=== PATIENT | male | born 1960 | race Caucasian/White ===

== ENCOUNTER → 2020-08-08 10:43 | Outpatient (BNVA) | payer MEDICAID, SELFPAY | PROVIDERS: PCP Internal Medicine; Visit Provider Internal Medicine | DX: I26.99 Other pulmonary embolism without acute cor pulmonale (principal); Z51.81 Encounter for therapeutic drug level monitoring; Z79.01 Long term (current) use of anticoagulants | CPT/HCPCS: 85610; 99211 ==

== ENCOUNTER 2020-08-19 08:16 | Outpatient (REF) | payer MEDICAID, SELFPAY ==
--- NOTE | 2020-08-19 | US_ITS ---
EXAMINATION: US RETROPERITONEAL LIMITED (RENAL ONLY) CLINICAL INFORMATION: Neurogenic bladder. COMPARISON: Renal ultrasounds dated 08/31/2019 and 07/26/2018. CT abdomen and pelvis without contrast dated 04/11/2009. X-ray abdomen dated 04/05/2009 and 03/15/2009. TECHNIQUE: Real-time imaging of the kidneys. FINDINGS: RIGHT KIDNEY: 12 x 7 x 6.7 cm (SAG x AP x TRV). The kidney is normal in size, contour, and echogenicity. Renal cortical thickness is normal. No calculi or focal parenchymal lesions. No hydronephrosis. LEFT KIDNEY: 10.4 x 6.9 x 4.6 cm (SAG x AP x TRV). The kidney is normal in size, contour, and echogenicity. Renal cortical thickness is normal. No renal calculi or hydronephrosis. There are 3 anechoic cysts. 1. The hcn-nj-edcna pole cyst measures 1.8 x 1.7 x 1.2 cm. 2. Lower pole cyst measures 0.9 x 0.8 x 1.2 cm. 3. Midpole cyst measures 1.0 x 0.9 x 1.0 cm. US/US renal BI IMPRESSION: At least 3 cysts seen in the left kidney. No echogenic calculi or hydronephrosis seen in either kidney.
[2020-08-19 10:18] LABS: PSA,Total (Free>4and<10) 0.83 ng/mL (0.00-4.00)
== END 2020-08-19 08:17 | disposition home or self-care (01) ==
LOC: HO.US 08:16
PROVIDERS: PCP Internal Medicine; Visit Provider Urology
DX: N40.1 Benign prostatic hyperplasia with lower urinary tract symptoms (principal); N31.9 Neuromuscular dysfunction of bladder, unspecified
CPT/HCPCS: 76775; 84153

== ENCOUNTER → 2020-09-05 13:45 | Outpatient (BNVA) | payer MEDICAID, SELFPAY | PROVIDERS: PCP Internal Medicine; Referring Provider Internal Medicine; Visit Provider Internal Medicine | DX: I26.99 Other pulmonary embolism without acute cor pulmonale (principal); Z51.81 Encounter for therapeutic drug level monitoring; Z79.01 Long term (current) use of anticoagulants | CPT/HCPCS: 85610; 99211 ==

== ENCOUNTER → 2020-10-09 11:03 | Outpatient (BNVA) | payer MEDICAID, SELFPAY | PROVIDERS: PCP Internal Medicine; Visit Provider Internal Medicine | DX: I26.99 Other pulmonary embolism without acute cor pulmonale (principal); Z51.81 Encounter for therapeutic drug level monitoring; Z79.01 Long term (current) use of anticoagulants | CPT/HCPCS: 85610; 99211 ==

== ENCOUNTER → 2020-11-06 10:39 | Outpatient (BNVA) | payer MEDICAID, SELFPAY | PROVIDERS: PCP Internal Medicine; Visit Provider Internal Medicine | DX: I26.99 Other pulmonary embolism without acute cor pulmonale (principal); Z51.81 Encounter for therapeutic drug level monitoring; Z79.01 Long term (current) use of anticoagulants | CPT/HCPCS: 85610; 99211 ==

== ENCOUNTER → 2020-12-19 10:44 | Outpatient (BNVA) | payer MEDICAID, SELFPAY | PROVIDERS: PCP Internal Medicine; Visit Provider Internal Medicine | DX: I26.99 Other pulmonary embolism without acute cor pulmonale (principal); Z51.81 Encounter for therapeutic drug level monitoring; Z79.01 Long term (current) use of anticoagulants | CPT/HCPCS: 85610; 99211 ==

== ENCOUNTER → 2021-01-17 13:16 | Outpatient (BNVA) | payer MEDICAID, SELFPAY | PROVIDERS: PCP Internal Medicine; Visit Provider Internal Medicine | DX: I26.99 Other pulmonary embolism without acute cor pulmonale (principal); Z51.81 Encounter for therapeutic drug level monitoring; Z79.01 Long term (current) use of anticoagulants | CPT/HCPCS: 85610; 99211 ==

== ENCOUNTER → 2021-02-07 13:24 | Outpatient (BNVA) | payer MEDICAID, SELFPAY | PROVIDERS: PCP Internal Medicine; Visit Provider Internal Medicine | DX: I26.99 Other pulmonary embolism without acute cor pulmonale (principal); Z79.01 Long term (current) use of anticoagulants; Z51.81 Encounter for therapeutic drug level monitoring | CPT/HCPCS: 85610; 99211 ==

== ENCOUNTER → 2021-02-27 14:39 | Outpatient (BNVA) | payer MEDICAID, SELFPAY | PROVIDERS: PCP Internal Medicine; Visit Provider Urology | DX: N31.9 Neuromuscular dysfunction of bladder, unspecified (principal); N39.0 Urinary tract infection, site not specified | CPT/HCPCS: 99212 ==

== ENCOUNTER → 2021-03-05 10:29 | Outpatient (BNVA) | payer MEDICAID, SELFPAY | PROVIDERS: PCP Internal Medicine; Visit Provider Internal Medicine | DX: I26.99 Other pulmonary embolism without acute cor pulmonale (principal); Z51.81 Encounter for therapeutic drug level monitoring; Z79.01 Long term (current) use of anticoagulants | CPT/HCPCS: 85610; 99211 ==

== ENCOUNTER → 2021-03-10 11:14 | Outpatient (BNVA) | payer MEDICAID, SELFPAY | PROVIDERS: PCP Internal Medicine; Visit Provider Internal Medicine | DX: I26.99 Other pulmonary embolism without acute cor pulmonale (principal); Z51.81 Encounter for therapeutic drug level monitoring; Z79.01 Long term (current) use of anticoagulants | CPT/HCPCS: 85610; 99211 ==

== ENCOUNTER → 2021-03-21 10:46 | Outpatient (BNVA) | payer MEDICAID, SELFPAY | PROVIDERS: PCP Internal Medicine; Visit Provider Internal Medicine | DX: I26.99 Other pulmonary embolism without acute cor pulmonale (principal); Z51.81 Encounter for therapeutic drug level monitoring; Z79.01 Long term (current) use of anticoagulants | CPT/HCPCS: 85610; 99211 ==

== ENCOUNTER → 2021-03-31 13:10 | Outpatient (BNVA) | payer MEDICAID, SELFPAY | PROVIDERS: PCP Internal Medicine; Visit Provider Internal Medicine | DX: I26.99 Other pulmonary embolism without acute cor pulmonale (principal) | CPT/HCPCS: Q3014 ==

== ENCOUNTER → 2021-04-04 13:19 | Outpatient (BNVA) | payer MEDICAID, SELFPAY | PROVIDERS: PCP Internal Medicine; Visit Provider Internal Medicine | DX: I26.99 Other pulmonary embolism without acute cor pulmonale (principal); Z51.81 Encounter for therapeutic drug level monitoring; Z79.01 Long term (current) use of anticoagulants | CPT/HCPCS: 85610; 99211 ==

== ENCOUNTER → 2021-05-08 10:41 | Outpatient (BNVA) | payer MEDICAID, SELFPAY | PROVIDERS: PCP Internal Medicine; Visit Provider Internal Medicine | DX: I26.99 Other pulmonary embolism without acute cor pulmonale (principal); Z51.81 Encounter for therapeutic drug level monitoring; Z79.01 Long term (current) use of anticoagulants | CPT/HCPCS: 85610; 99211 ==

== ENCOUNTER → 2021-05-22 10:45 | Outpatient (BNVA) | payer MEDICAID, SELFPAY | PROVIDERS: PCP Internal Medicine; Visit Provider Internal Medicine | DX: I26.99 Other pulmonary embolism without acute cor pulmonale (principal); Z51.81 Encounter for therapeutic drug level monitoring; Z79.01 Long term (current) use of anticoagulants | CPT/HCPCS: 85610; 99211 ==

== ENCOUNTER → 2021-06-20 10:22 | Outpatient (BNVA) | payer MEDICAID, SELFPAY | PROVIDERS: PCP Internal Medicine; Visit Provider Internal Medicine | DX: I26.99 Other pulmonary embolism without acute cor pulmonale (principal); Z51.81 Encounter for therapeutic drug level monitoring; Z79.01 Long term (current) use of anticoagulants | CPT/HCPCS: 85610; 99211 ==

== ENCOUNTER → 2021-07-15 10:38 | Outpatient (BNVA) | payer MEDICAID, SELFPAY | PROVIDERS: PCP Internal Medicine; Visit Provider Internal Medicine | DX: I26.99 Other pulmonary embolism without acute cor pulmonale (principal); Z51.81 Encounter for therapeutic drug level monitoring; Z79.01 Long term (current) use of anticoagulants | CPT/HCPCS: 85610; 99211 ==

== ENCOUNTER → 2021-07-29 10:56 | Outpatient (BNVA) | payer MEDICAID, SELFPAY | PROVIDERS: PCP Internal Medicine; Visit Provider Internal Medicine | DX: I26.99 Other pulmonary embolism without acute cor pulmonale (principal); Z51.81 Encounter for therapeutic drug level monitoring; Z79.01 Long term (current) use of anticoagulants | CPT/HCPCS: 85610; 99211 ==

== ENCOUNTER 2021-07-29 17:46 | Emergency (ER) | payer MEDICAID, SELFPAY ==
--- NOTE | ~2021-07-29 | CT_ITS ---
EXAMINATION: CT ABDOMEN AND PELVIS WITHOUT CONTRAST CLINICAL INFORMATION: Left costovertebral angle tenderness and suprapubic pain. Known urinary tract infection. COMPARISON: Renal ultrasound dated from 08/19/2020. CT abdomen/pelvis dated from 04/11/2009. TECHNIQUE: Multidetector volumetric imaging was performed from the superior aspect of the liver through the pubic symphysis. Sagittal and coronal reformatted images were obtained on the technologist's workstation. This CT examination was performed using dose optimization techniques as appropriate, variously including the following: *Automated exposure control *Adjustment of mA and/or kV according to patient size (this includes techniques or standardized protocols for targeted exams where dose is matched to indication/reason for exam; i.e. extremities or head) *Use of iterative reconstruction technique DLP: 95 mGy-cm FINDINGS: LUNG BASES: Linear scarring in the right lung base is not significantly changed since 2008. No focal consolidation or pleural effusion. Mild cardiomegaly with trace amount of pericardial fluid. Mild asymmetric elevation of the left hemidiaphragm is likely in part related to patient's positioning. LIVER, GALLBLADDER, AND BILIARY TREE: The liver is normal in size, shape, and attenuation. No focal hepatic lesion or biliary ductal dilatation is present. The gallbladder is unremarkable with no evidence of radiopaque gallstones, gallbladder wall thickening, or obvious pericholecystic inflammatory changes. PANCREAS: Mildly atrophic. No focal abnormalities. The main pancreatic duct is nondilated. No peripancreatic inflammatory changes. SPLEEN: Unremarkable. ADRENAL GLANDS: Unremarkable. KIDNEYS AND URETERS: Redemonstration of cortical thinning and scarring in the lower pole of the left kidney. There are a few punctate cortical calcifications bilaterally. No renal calculi. No hydronephrosis or hydroureter. Very mild perinephric fat stranding bilaterally. In the lower pole of the left kidney there is a 1.7 cm simple cyst (58:11). More superiorly in the lateral surface of the interpolar region of the left kidney there is a 1.2 cm simple cyst (60:11). There are a few other too small to characterize hypodensities bilaterally. BLADDER: The wall of the urinary bladder is slightly thickened and trabeculated. No intraluminal calculi or focal abnormalities. No significant perivesical fat stranding. GASTROINTESTINAL TRACT: There is fecalization of the distal small bowel and significant stool burden throughout the colon, including the rectum suggesting slow transit and constipation. No pericolic inflammatory changes. No bowel obstruction. Normal appendix. ABDOMINAL WALL: Right lower abdominal wall indication pump terminating in the posterior thecal sac at the level of T11-T12. No abdominal hernia. LYMPH NODES: The absence of intravenous contrast limits evaluation of lymphadenopathy. However, accounting for these limitations, no abdominopelvic lymphadenopathy by size criteria is identified. VASCULAR: Scattered atherosclerotic disease of the abdominal aorta without aneurysm. PELVIC VISCERA: Mild prostatomegaly with coarse calcifications. OSSEOUS STRUCTURES: Compression deformity at L1 is unchanged since 2008. There is increase grade 1 retrolisthesis of L5 on S1, which is likely degenerative in nature with associated vacuum disc phenomena, bilateral facet arthropathy and prominent osteophytes at this level. CT/CT abdomen pelvis wo con IMPRESSION: No evidence of renal calculi, hydronephrosis nor hydroureter. Evaluation of pyelonephritis is limited in the absence of intravenous contrast. The wall of the urinary bladder is slightly thickened and trabeculated which could be sequela of chronic outlet obstruction. Correlate clinically for cystitis. Fecalization of the distal small bowel with significant stool burden throughout the colon suggesting slow transit/constipation. No active inflammatory bowel changes. No bowel obstruction. Progression of lumbar spondylosis since 2008, more pronounced at L5-S1. Unchanged compression deformity at L1.
[2021-07-29 18:09] VITALS: BP 92/36; PULSE 68; RESP 17; TEMP 36.8; O2SAT 96; BMI 28.3
[2021-07-29 21:45] VITALS: BP 103/54; PULSE 62; RESP 16; TEMP 36.5; O2SAT 97
--- NOTE | 2021-07-29 23:14 | ED.MALEGU ---
HPI - Male Genitourinary General Chief complaint: Urogenital-Male Stated complaint: UTI Time Seen by Provider: 07/29/21 22:10 Source: patient Mode of arrival: ambulatory History of Present Illness HPI Narrative: 60-year-old male with a past medical history of neurogenic bladder requiring intermittent catheterization, recurrent UTIs, to ED sent in from [facility] for persistent UTI symptoms including dysuria, lower abdominal pain x1 week and left flank pain with associated chills and subjective fever since yesterday. Patient has been on Bactrim since 07/23 without improvement in symptoms.Denies nausea, vomiting, testicular pain, hematuria, penile pain MD Complaint: dysuria Related Data Home Medications Medication Instructions Recorded Confirmed BIOTIN PO 03/05/21 05/22/21 CLONAZEPAM PO 03/05/21 05/22/21 NITROFURANTOIN PO 03/05/21 05/22/21 VITAMIN D 3 PO 03/05/21 05/22/21 ZINC PO 03/05/21 05/22/21 baclofen 20 mg tablet 20 mg PO QID 03/05/21 05/22/21 pyridoxine (vitamin B6) [Vitamin PO 03/05/21 05/22/21 B-6] cefdinir 300 mg capsule 300 mg PO BID 04/04/21 05/22/21 varicella-zoster gE vac,2 of 2 50 IM 04/04/21 05/22/21 mcg IM suspension (Shingrix gE Antigen Component) Previous Rx's Medication Instructions Recorded warfarin 3 mg tablet 3 mg PO DAILY #90 tab 08/08/20 ascorbic acid (vitamin C) 1,000 mg 1 g PO DAILY 90 Days #90 tab 02/27/21 tablet methenamine hippurate 1 gram tablet 1 g PO DAILY 90 Days #90 tab 02/27/21 cefpodoxime 200 mg tablet 200 mg PO BID 10 Days #20 tab 07/30/21 Allergies Allergy/AdvReac Type Severity Reaction Status Date / Time No Known Allergies Allergy Mild NOT Verified 07/29/21 18:08 APPLICABLE Review of Systems Review of Systems: Constitutional: +subj Fever, + Chills, No Fatigue, No Malaise ENT/Mouth: No Ear Pain, No Nasal Congestion, No Hoarseness, No sore throat, No Rhinorrhea Eyes: No Eye Pain, No Swelling, No Vision Changes Cardiovascular: No Chest Pain, No SOB, No Dyspnea on Exertion, No Orthopnea, No Edema, No Palpitations Respiratory: No Cough, No Dyspnea Gastrointestinal: No Nausea, No Vomiting, No Diarrhea, No Constipation, + Abdominal pain Genitourinary: + Dysuria, No Urinary Frequency, No Hematuria, + Urgency, + Flank Pain, No Urinary Flow Changes, No Hesitancy Musculoskeletal: No joint pain, No Myalgias, No Joint Swelling Skin: No Skin Lesions, No rash Neuro: No Weakness, No Dizziness, No Headache Yes all other systems are reviewed and are negative FOR[facility]LY [facility] Past Medical History Attestation statement: The following information was validated with the patient. Medical History (Updated 07/30/21 @ 00:04 by ZULEYMA Albarran) Hx of meningitis Neurogenic bladder Renal cyst, acquired UTI (urinary tract infection) Surgical History (Updated 07/29/21 @ 18:11 by Jessica De La O RN) H/O abdominal surgery Social History Social History Advance Directives: No Advance Directives Information Provided: Yes Physical Exam Vital Signs: Vital Signs: Last Vital Signs Temp 97.7 F 07/29/21 21:45 Pulse 59 07/29/21 23:25 Resp 16 07/29/21 23:25 BP 104/59 L 07/29/21 23:25 Pulse Ox 97 07/29/21 23:25 Body Mass Index 28.3 Const: General: cooperative, healthy appearing and no acute distress Orientation/consciousness: patient oriented x3 Limitations: no limitations HENMT: Head: Yes normal to inspection Ears: hearing grossly normal bilaterally General nose exam: Normal external nose present Face and sinus: Yes normal facial exam Eyes: General: appearance normal, both eyes and all related structures EOM: EOMs intact bilaterally Neck: Neck: Yes normal visual inspection Resp: Effort & Inspection: normal respiratory effort and no respiratory distress Cardio: Rate: regular rate Heart sounds: S1 normal heart sound present and S2 normal heart sound present GI: Inspection: Yes normal to inspection Palpation (GI): Soft to palpation, Tenderness to palpation present (GI) (Suprapubic), no guarding and not rigid : General: Yes CVA tenderness on the left Penis: normal penis Back/Spine/Pelvis: Back: CVA tenderness Skin: Rashes: no rashes Wounds: no wounds Neuro: General: patient oriented x3 Gait exam (Neuro): Normal gait present Extrem: General: Yes normal to inspection Course Course Course Narrative: -no leukocytosis, elevated INR to 4.2 > on Coumadin to prevent coagulation due to Decreased activity. Discussed with patient elevated INR and should hold Coumadin x2 days and have INR rechecked -1753-- UA nitrate positive, +leuk estrase +wbc's and bacteria > patient will receive dose of IV Ceftriaxone in the ED CT abdomen pelvis wo con IMPRESSION: No evidence of renal calculi, hydronephrosis nor hydroureter. Evaluation of pyelonephritis is limited in the absence of intravenous contrast. ? The wall of the urinary bladder is slightly thickened and trabeculated which could be sequela of chronic outlet obstruction. Correlate clinically for cystitis. ? Fecalization of the distal small bowel with significant stool burden throughout the colon suggesting slow transit/constipation. No active inflammatory bowel changes. No bowel obstruction. ? Progression of lumbar spondylosis since 2008, more pronounced at L5-S1. Unchanged compression deformity at L1.? -0038--labs otherwise unremarkable, renal function WNL negative. Patient does not meet sepsis criteria. > will discharge patient with Vantin and close Urology follow-up MDM - Male Genitourinary MDM Narrative Medical decision making narrative: 60-year-old male with a past medical history of neurogenic bladder requiring intermittent catheterization, recurrent UTIs, to ED sent in from [facility] for persistent UTI symptoms including dysuria, lower abdominal pain x1 week and left flank pain with associated chills and subjective fever since yesterday. On exam initially hypotensive, NAD, abdomen with suprapubic TTP, left CVAT noted on exam, concern for UTI/pyelo vs renal stone/obstruction. Concern for failed outpatient treatment. Low concern for severe sepsis at this time. Plan: Labs, UA, lactic/blood cultures, IV antibiotics, anticipated admission Medical Records Attestation: I reviewed the patient's medical records. Lab Data Attestation: I reviewed the patient's lab results. Result diagrams: 07/29/21 23:33 07/29/21 23:33 Labs: Lab Results 07/29/21 07/29/21 07/29/21 Range/Units 23:27 23:33 23:33 WBC 5.8 (4.8-10.8) X10*3/uL RBC 5.13 (4.60-5.80) X10*6/uL Hgb 14.5 (14.0-18.0) g/dl Hct 44.1 (42-52) % MCV 86.0 (80-98) fL MCH 28.3 (27.0-33.0) pg MCHC 32.9 (31.0-36.0) g/dl RDW 13.4 (11.0-16.0) % Plt Count 167 (160-400) X10*3/uL MPV 9.3 L (9.4-12.4) fL Immature Gran % (Auto) 0.2 (0.0-0.4) % Neut % (Auto) 56.9 (45-73) % Lymph % (Auto) 28.8 (20-40) % [place] % (Auto) 11.8 H (2-11) % Eos % (Auto) 2.1 (0-4) % Baso % (Auto) 0.2 (0-2) % Lymph # (Auto) 1.7 (1.2-4.9) X10*3/uL [place] # (Auto) 0.7 (0.1-1.2) X10*3/uL Eos # (Auto) 0.1 (0.0-0.4) X10*3/uL Baso # (Auto) 0.0 (0.0-0.2) X10*3/uL Abs Immat Gran (auto) 0.01 (0.00-0.03) X10*3/uL Absolute Neuts (auto) 3.3 (2.0-8.3) X10*3/uL Absolute Nucleated RBC 0.000 (0.0-0.012) X10*3/uL Nucleated RBC % (auto) 0.0 (0.0-0.2) /100WBC Sodium 137 (135-145) mmol/L Potassium 4.5 (3.3-5.1) mmol/L Chloride 103 (96-108) mmol/L Carbon Dioxide 26 (22-29) mmol/L Anion Gap 13 (12-20) BUN 11 (9-16) mg/dL Creatinine 0.85 (0.5-1.4) mg/dL Estim Creat Clear Calc 86.3 Estimated GFR > 60 Random Glucose 86 (60-115) mg/dL Lactic Acid (0.5-2.0) mmol/L Calcium 8.9 (8.4-10.2) mg/dL Magnesium 2.2 (1.6-2.6) mg/dL Total Bilirubin 0.2 (0.0-1.0) mg/dL Direct Bilirubin 0.2 (0.0-0.5) mg/dL AST 28 (5-37) U/L ALT 35 (0-40) U/L Alkaline Phosphatase 44 (39-117) U/L Total Protein 6.8 (6.5-8.0) g/dL Albumin 4.5 (3.5-5.0) g/dL Lipase 15 (8-78) U/L Urine Color Urine Appearance Urine pH (5.0-8.0) Ur Specific [place] (1.005-1.025) Urine Protein (NEG-TRACE) MG/DL Urine Glucose (UA) (NEG) MG/DL Urine Ketones (NEG) MG/DL Urine Blood (NEG) Urine Nitrite (NEG) Ur Leukocyte Esterase (NEG) Urine RBC (0) /HPF Urine WBC (0-4) /HPF Urine WBC Clumps Ur Squamous Epith Cells /LPF Urine Bacteria /LPF COVID-19 (KEIRY) Negative (Negative) COVID-19 Clin Com See Note 07/29/21 07/30/21 Range/Units 23:33 00:06 WBC (4.8-10.8) X10*3/uL RBC (4.60-5.80) X10*6/uL Hgb (14.0-18.0) g/dl Hct (42-52) % MCV (80-98) fL MCH (27.0-33.0) pg MCHC (31.0-36.0) g/dl RDW (11.0-16.0) % Plt Count (160-400) X10*3/uL MPV (9.4-12.4) fL Immature Gran % (Auto) (0.0-0.4) % Neut % (Auto) (45-73) % Lymph % (Auto) (20-40) % [place] % (Auto) (2-11) % Eos % (Auto) (0-4) % Baso % (Auto) (0-2) % Lymph # (Auto) (1.2-4.9) X10*3/uL [place] # (Auto) (0.1-1.2) X10*3/uL Eos # (Auto) (0.0-0.4) X10*3/uL Baso # (Auto) (0.0-0.2) X10*3/uL Abs Immat Gran (auto) (0.00-0.03) X10*3/uL Absolute Neuts (auto) (2.0-8.3) X10*3/uL Absolute Nucleated RBC (0.0-0.012) X10*3/uL Nucleated RBC % (auto) (0.0-0.2) /100WBC Sodium (135-145) mmol/L Potassium (3.3-5.1) mmol/L Chloride (96-108) mmol/L Carbon Dioxide (22-29) mmol/L Anion Gap (12-20) BUN (9-16) mg/dL Creatinine (0.5-1.4) mg/dL Estim Creat Clear Calc Estimated GFR Random Glucose (60-115) mg/dL Lactic Acid 1.1 (0.5-2.0) mmol/L Calcium (8.4-10.2) mg/dL Magnesium (1.6-2.6) mg/dL Total Bilirubin (0.0-1.0) mg/dL Direct Bilirubin (0.0-0.5) mg/dL AST (5-37) U/L ALT (0-40) U/L Alkaline Phosphatase (39-117) U/L Total Protein (6.5-8.0) g/dL Albumin (3.5-5.0) g/dL Lipase (8-78) U/L Urine Color YELLOW Urine Appearance HAZY Urine pH 6.0 (5.0-8.0) Ur Specific [place] 1.020 (1.005-1.025) Urine Protein TRACE (NEG-TRACE) MG/DL Urine Glucose (UA) NEG (NEG) MG/DL Urine Ketones NEG (NEG) MG/DL Urine Blood TRACE (NEG) Urine Nitrite POS H (NEG) Ur Leukocyte Esterase 2+ H (NEG) Urine RBC 0 (0) /HPF Urine WBC 30-49 H (0-4) /HPF Urine WBC Clumps NOTED Ur Squamous Epith Cells 2+ /LPF Urine Bacteria 4+ /LPF COVID-19 (KEIRY) (Negative) COVID-19 Clin Com Discharge Plan Discharge Clinical Impression: Acute pyelonephritis, Elevated INR Patient Disposition: Home, Self-Care Instructions: Urinary Tract Infection in Men (ED) Additional Instructions: you have a urinary tract infection, which is likely Has spread to your kidney, Cefpodoxime Is an antibiotic, please take as prescribed It is important for you to stay hydrated at home If your symptoms persist or worsen, he develops fever, nausea, vomiting, worsening or persistent abdominal pain or back pain please return to the ED immediately Please follow-up with urology in the next 3-5 days tiene josette infecci?n del tracto urinario, que es probable que se haya propagado a delgado ri??n, cefpodoxima es un antibi?deanna, t?russo seg?n lo prescrito Es importante que te mantengas hidratado en casa Si blanquita s?ntomas persisten o empeoran, presenta fiebre, n?useas, v?mitos, empeoramiento o dolor abdominal persistente o dolor de espalda, regrese al servicio de urgencias de inmediato. Realice un seguimiento con urolog?a en los pr?ximos 3-5 d?as Prescriptions: New cefpodoxime 200 mg tablet 200 mg PO BID 10 Days Qty: 20 RF: 0 No Action ascorbic acid (vitamin C) 1,000 mg tablet 1 g PO DAILY 90 Days Qty: 90 RF: 1 methenamine hippurate 1 gram tablet 1 g PO DAILY 90 Days Qty: 90 RF: 1 warfarin 3 mg tablet 3 mg PO DAILY Qty: 90 RF: 0 baclofen 20 mg tablet 20 mg PO QID RF: 0 VITAMIN D 3 PO RF: 0 NITROFURANTOIN PO RF: 0 CLONAZEPAM PO RF: 0 ZINC PO RF: 0 BIOTIN PO RF: 0 pyridoxine (vitamin B6) PO RF: 0 Shingrix gE Antigen Component 50 mcg suspension for reconstitution IM RF: 0 cefdinir 300 mg capsule 300 mg PO BID RF: 0 Referrals: Oh Rodriguez MD [Physician] - 5 days [facility] [Primary Care Provider] - 2 days Print Language: Comoran
[2021-07-29 23:25] VITALS: BP 104/59; PULSE 59; RESP 16; O2SAT 97
[2021-07-29 23:43] LABS: Basophils Percent Auto 0.2 % (0-2); Eosinophils Absolute Auto 0.1 X10*3/uL (0.0-0.4); Eosinophils Percent Auto 2.1 % (0-4); Hematocrit 44.1 % (42-52); Hemoglobin 14.5 g/dl (14.0-18.0); Imm Gran Abs Auto 0.01 X10*3/uL (0.00-0.03); Imm Gran Pct Auto 0.2 % (0.0-0.4); Lymphocytes Absolute Auto 1.7 X10*3/uL (1.2-4.9); Lymphocytes Percent Auto 28.8 % (20-40); MANUAL DIFF FLAG NO; Mean Corpuscular HGB Conc 32.9 g/dl (31.0-36.0); Mean Corpuscular Hemoglobin 28.3 pg (27.0-33.0); Mean Platelet Volume 9.3 fL (9.4-12.4); Monocytes Absolute Auto 0.7 X10*3/uL (0.1-1.2); Monocytes Percent Auto 11.8 % (2-11); Neutrophils Absolute Auto 3.3 X10*3/uL (2.0-8.3); Neutrophils Percent Auto 56.9 % (45-73); Platelet Count 167 X10*3/uL (160-400); Red Blood Count 5.13 X10*6/uL (4.60-5.80); Red Cell Distribution Width 13.4 % (11.0-16.0); White Blood Count 5.8 X10*3/uL (4.8-10.8)
[2021-07-29] MEDS: 0.9 % Sodium Chloride 1,000 ML 999 ML IVCONT (23:46)
[2021-07-29] MEDS: cefTRIAXone sodium 1 GM in 0.9 % Sodium Chloride 50 ML IV (23:46)
[2021-07-29 23:58] LABS: COVID-19 Test Negative (Negative); IDNOW Serial# 9DD0AD1C
--- NOTE | 2021-07-30 00:04 | PC.NURSE ---
PT STRAIGHT CATHED HIMSELF, 200 ML' S URINE.
[2021-07-30 00:12] LABS: Lactic Acid 1.1 mmol/L (0.5-2.0)
[2021-07-30 00:16] LABS: Appearance Urine HAZY; Color Urine YELLOW; Glucose Urine UA NEG (NEG); Leukocyte Esterase Urine 2+ (NEG); Nitrite Urine POS (NEG); UACC Culture Trigger YES; Urine Blood TRACE (NEG); Urine Ketones NEG (NEG); Urine Protein TRACE MG/DL (NEG-TRACE)
[2021-07-30 00:28] LABS: Bacteria Urine 4+ /LPF; RBC Urine 0 /HPF (0); Squamous Epithelial Cell Urine 2+ /LPF; WBC Clumps Urine NOTED; WBC Urine 30-49 /HPF (0-4)
[2021-07-30 00:29] LABS: Alanine Aminotransferase 35 U/L (0-40); Albumin Level 4.5 g/dL (3.5-5.0); Alkaline Phosphatase 44 U/L (39-117); Anion Gap 13 (12-20); Aspartate Amino Transferase 28 U/L (5-37); Bilirubin Direct 0.2 mg/dL (0.0-0.5); Bilirubin Total 0.2 mg/dL (0.0-1.0); Blood Urea Nitrogen 11 mg/dL (9-16); Calcium 8.9 mg/dL (8.4-10.2); Carbon Dioxide 26 mmol/L (22-29); Chloride 103 mmol/L (96-108); Creatinine Clr Calc Pharmacy 86.3; Estimated Glomerular Filt Rate > 60; Glucose Random 86 mg/dL (60-115); Lipase 15 U/L (8-78); Magnesium 2.2 mg/dL (1.6-2.6); Potassium 4.5 mmol/L (3.3-5.1); Sodium 137 mmol/L (135-145); Total Protein 6.8 g/dL (6.5-8.0)
== END 2021-07-30 01:22 | disposition home or self-care (01) ==
PROVIDERS: Physician Assistant; Emergency Provider Emergency Medicine Emergency Medical Services
DX: N10 Acute pyelonephritis (principal); R79.89 Other specified abnormal findings of blood chemistry; Z79.899 Other long term (current) drug therapy; Z20.822 Contact with and (suspected) exposure to COVID-19
CPT/HCPCS: 36415; 74176; 80048; 80076; 81001; 83605; 83690; 83735; 85025; 87040; 87086; 87088; 87186; 87635; 96365; 99283; 99284; J0696

== ENCOUNTER → 2021-08-01 11:21 | Outpatient (BNVA) | payer MEDICAID, SELFPAY | PROVIDERS: PCP Internal Medicine; Visit Provider Internal Medicine | DX: I26.99 Other pulmonary embolism without acute cor pulmonale (principal); Z51.81 Encounter for therapeutic drug level monitoring; Z79.01 Long term (current) use of anticoagulants | CPT/HCPCS: 85610; 99211 ==

== ENCOUNTER → 2021-08-08 11:25 | Outpatient (BNVA) | payer MEDICAID, SELFPAY | PROVIDERS: PCP Internal Medicine; Visit Provider Internal Medicine | DX: I26.99 Other pulmonary embolism without acute cor pulmonale (principal); Z51.81 Encounter for therapeutic drug level monitoring; Z79.01 Long term (current) use of anticoagulants | CPT/HCPCS: 85610; 99211 ==

== ENCOUNTER → 2021-08-18 10:35 | Outpatient (BNVA) | payer MEDICAID, SELFPAY | PROVIDERS: PCP Internal Medicine; Referring Provider Internal Medicine; Visit Provider Nurse Practitioner | DX: Z12.11 Encounter for screening for malignant neoplasm of colon (principal); Z79.01 Long term (current) use of anticoagulants | CPT/HCPCS: 99202 ==

== ENCOUNTER → 2021-08-25 11:03 | Outpatient (BNVA) | payer MEDICAID, SELFPAY | PROVIDERS: PCP Internal Medicine; Visit Provider Internal Medicine | DX: I26.99 Other pulmonary embolism without acute cor pulmonale (principal); Z51.81 Encounter for therapeutic drug level monitoring; Z79.01 Long term (current) use of anticoagulants | CPT/HCPCS: 85610; 99211 ==

== ENCOUNTER → 2021-09-03 13:20 | Outpatient (BNVA) | payer MEDICAID, SELFPAY | PROVIDERS: PCP Internal Medicine; Visit Provider Urology | DX: N31.9 Neuromuscular dysfunction of bladder, unspecified (principal); N28.1 Cyst of kidney, acquired; N39.0 Urinary tract infection, site not specified; Z86.61 Personal history of infections of the central nervous system; Z97.8 Presence of other specified devices | CPT/HCPCS: 85610; 99211; 99212 ==

== ENCOUNTER → 2021-09-24 10:59 | Outpatient (BNVA) | payer MEDICAID, SELFPAY | PROVIDERS: PCP Internal Medicine; Visit Provider Internal Medicine | DX: I26.99 Other pulmonary embolism without acute cor pulmonale (principal); Z51.81 Encounter for therapeutic drug level monitoring; Z79.01 Long term (current) use of anticoagulants | CPT/HCPCS: 85610; 99211 ==

== ENCOUNTER → 2021-10-22 10:58 | Outpatient (BNVA) | payer MEDICAID, SELFPAY | PROVIDERS: PCP Internal Medicine; Visit Provider Internal Medicine | DX: I26.99 Other pulmonary embolism without acute cor pulmonale (principal); Z51.81 Encounter for therapeutic drug level monitoring; Z79.01 Long term (current) use of anticoagulants | CPT/HCPCS: 85610; 99211 ==

== ENCOUNTER → 2021-11-06 10:32 | Outpatient (BNVA) | payer MEDICAID, SELFPAY | PROVIDERS: PCP Internal Medicine; Visit Provider Urology | DX: N39.0 Urinary tract infection, site not specified (principal); N31.9 Neuromuscular dysfunction of bladder, unspecified | CPT/HCPCS: 99212 ==

== ENCOUNTER → 2021-11-12 10:37 | Outpatient (BNVA) | payer MEDICAID, SELFPAY | PROVIDERS: PCP Internal Medicine; Visit Provider Internal Medicine | DX: I26.99 Other pulmonary embolism without acute cor pulmonale (principal); Z51.81 Encounter for therapeutic drug level monitoring; Z79.01 Long term (current) use of anticoagulants | CPT/HCPCS: 85610; 99211 ==

== ENCOUNTER → 2021-11-20 11:23 | Outpatient (BNVA) | payer MEDICAID, SELFPAY | PROVIDERS: PCP Internal Medicine; Visit Provider Internal Medicine | DX: I26.99 Other pulmonary embolism without acute cor pulmonale (principal); Z51.81 Encounter for therapeutic drug level monitoring; Z79.01 Long term (current) use of anticoagulants | CPT/HCPCS: 85610; 99211 ==

== ENCOUNTER → 2021-12-11 11:24 | Outpatient (BNVA) | payer MEDICAID, SELFPAY | PROVIDERS: PCP Internal Medicine; Visit Provider Internal Medicine | DX: I26.99 Other pulmonary embolism without acute cor pulmonale (principal); Z51.81 Encounter for therapeutic drug level monitoring; Z79.01 Long term (current) use of anticoagulants | CPT/HCPCS: 85610; 99211 ==

== ENCOUNTER → 2022-01-02 11:32 | Outpatient (BNVA) | payer MEDICAID, SELFPAY | PROVIDERS: PCP Internal Medicine; Visit Provider Internal Medicine | DX: I26.99 Other pulmonary embolism without acute cor pulmonale (principal); Z51.81 Encounter for therapeutic drug level monitoring; Z79.01 Long term (current) use of anticoagulants | CPT/HCPCS: 85610; 99211 ==

== ENCOUNTER → 2022-01-23 11:03 | Outpatient (BNVA) | payer MEDICAID, SELFPAY | PROVIDERS: PCP Internal Medicine; Visit Provider Internal Medicine | DX: I26.99 Other pulmonary embolism without acute cor pulmonale (principal); Z51.81 Encounter for therapeutic drug level monitoring; Z79.01 Long term (current) use of anticoagulants | CPT/HCPCS: 85610; 99211 ==

== ENCOUNTER → 2022-02-16 11:54 | Outpatient (BNVA) | payer MEDICAID, SELFPAY | PROVIDERS: PCP Internal Medicine; Visit Provider Internal Medicine | DX: I26.99 Other pulmonary embolism without acute cor pulmonale (principal); Z79.01 Long term (current) use of anticoagulants; Z51.81 Encounter for therapeutic drug level monitoring | CPT/HCPCS: 85610; 99211 ==

== ENCOUNTER → 2022-03-03 10:42 | Outpatient (BNVA) | payer MEDICAID, SELFPAY | PROVIDERS: PCP Internal Medicine; Visit Provider Internal Medicine | DX: I26.99 Other pulmonary embolism without acute cor pulmonale (principal); Z79.01 Long term (current) use of anticoagulants; Z51.81 Encounter for therapeutic drug level monitoring | CPT/HCPCS: 85610; 99211 ==

== ENCOUNTER → 2022-03-04 15:53 | Outpatient (BNVA) | payer MEDICAID, SELFPAY | PROVIDERS: PCP Internal Medicine; Visit Provider Internal Medicine | DX: I26.99 Other pulmonary embolism without acute cor pulmonale (principal); Z79.01 Long term (current) use of anticoagulants; Z51.81 Encounter for therapeutic drug level monitoring | CPT/HCPCS: Q3014 ==

== ENCOUNTER → 2022-03-10 11:16 | Outpatient (BNVA) | payer MEDICAID, SELFPAY | PROVIDERS: PCP Internal Medicine; Visit Provider Internal Medicine | DX: I26.99 Other pulmonary embolism without acute cor pulmonale (principal); Z79.01 Long term (current) use of anticoagulants; Z51.81 Encounter for therapeutic drug level monitoring | CPT/HCPCS: 85610; 99211 ==

== ENCOUNTER → 2022-03-19 10:44 | Outpatient (BNVA) | payer MEDICAID, SELFPAY | PROVIDERS: PCP Internal Medicine; Visit Provider Internal Medicine | DX: I26.99 Other pulmonary embolism without acute cor pulmonale (principal); Z79.01 Long term (current) use of anticoagulants; Z51.81 Encounter for therapeutic drug level monitoring | CPT/HCPCS: 85610; 99211 ==

== ENCOUNTER 2022-03-24 10:22 | Outpatient (REF) | payer MEDICAID, SELFPAY ==
[2022-03-24 11:52] LABS: Appearance Urine HAZY; Color Urine YELLOW; Glucose Urine UA NEG (NEG); Leukocyte Esterase Urine 1+ (NEG); Nitrite Urine POS (NEG); Urine Blood NEG (NEG); Urine Ketones NEG (NEG); Urine Protein NEG (NEG-TRACE)
[2022-03-24 12:04] LABS: Bacteria Urine 4+ /LPF; RBC Urine 0 /HPF (0); WBC Urine 50-75 /HPF (0-4)
== END 2022-03-24 10:23 | disposition home or self-care (01) ==
LOC: HO.LAB 10:22
PROVIDERS: PCP Internal Medicine; Visit Provider Urology
DX: N39.0 Urinary tract infection, site not specified (principal)
CPT/HCPCS: 81001; 87086; 87088; 87186

== ENCOUNTER → 2022-04-02 11:11 | Outpatient (BNVA) | payer MEDICAID, SELFPAY | PROVIDERS: PCP Internal Medicine; Visit Provider Internal Medicine | DX: I26.99 Other pulmonary embolism without acute cor pulmonale (principal); Z79.01 Long term (current) use of anticoagulants; Z51.81 Encounter for therapeutic drug level monitoring | CPT/HCPCS: 85610; 99211 ==

== ENCOUNTER → 2022-04-16 11:21 | Outpatient (BNVA) | payer MEDICAID, SELFPAY | PROVIDERS: PCP Internal Medicine; Visit Provider Internal Medicine | DX: I26.99 Other pulmonary embolism without acute cor pulmonale (principal); Z51.81 Encounter for therapeutic drug level monitoring; Z79.01 Long term (current) use of anticoagulants | CPT/HCPCS: 85610; 99211 ==

== ENCOUNTER → 2022-04-24 08:32 | Outpatient (BNVA) | payer MEDICAID, SELFPAY | PROVIDERS: PCP Internal Medicine; Visit Provider Urology | DX: N42.89 Other specified disorders of prostate (principal) | CPT/HCPCS: 51798; 99212 ==

== ENCOUNTER → 2022-04-27 11:48 | Outpatient (BNVA) | payer MEDICAID, SELFPAY | PROVIDERS: PCP Internal Medicine; Visit Provider Internal Medicine | DX: I26.99 Other pulmonary embolism without acute cor pulmonale (principal); Z51.81 Encounter for therapeutic drug level monitoring; Z79.01 Long term (current) use of anticoagulants | CPT/HCPCS: Q3014 ==

== ENCOUNTER → 2022-04-30 10:45 | Outpatient (BNVA) | payer MEDICAID, SELFPAY | PROVIDERS: PCP Internal Medicine; Visit Provider Internal Medicine | DX: I26.99 Other pulmonary embolism without acute cor pulmonale (principal); Z51.81 Encounter for therapeutic drug level monitoring; Z79.01 Long term (current) use of anticoagulants | CPT/HCPCS: 85610; 99211 ==

== ENCOUNTER → 2022-05-11 10:48 | Outpatient (BNVA) | payer MEDICAID, SELFPAY | PROVIDERS: PCP Internal Medicine; Visit Provider Internal Medicine | DX: I26.99 Other pulmonary embolism without acute cor pulmonale (principal); Z79.01 Long term (current) use of anticoagulants; Z51.81 Encounter for therapeutic drug level monitoring | CPT/HCPCS: 85610; 99211 ==

== ENCOUNTER → 2022-05-21 10:58 | Outpatient (BNVA) | payer MEDICAID, SELFPAY | PROVIDERS: PCP Internal Medicine; Visit Provider Internal Medicine | DX: I26.99 Other pulmonary embolism without acute cor pulmonale (principal); Z79.01 Long term (current) use of anticoagulants; Z51.81 Encounter for therapeutic drug level monitoring | CPT/HCPCS: 85610; 99211 ==

== ENCOUNTER → 2022-05-28 11:48 | Outpatient (BNVA) | payer MEDICAID, SELFPAY | PROVIDERS: PCP Internal Medicine; Visit Provider Internal Medicine | DX: I26.99 Other pulmonary embolism without acute cor pulmonale (principal); Z79.01 Long term (current) use of anticoagulants; Z51.81 Encounter for therapeutic drug level monitoring | CPT/HCPCS: Q3014 ==

== ENCOUNTER → 2022-06-01 10:56 | Outpatient (BNVA) | payer MEDICAID, SELFPAY | PROVIDERS: PCP Internal Medicine; Visit Provider Internal Medicine | DX: I26.99 Other pulmonary embolism without acute cor pulmonale (principal); Z79.01 Long term (current) use of anticoagulants; Z51.81 Encounter for therapeutic drug level monitoring | CPT/HCPCS: 85610; 99211 ==

== ENCOUNTER 2022-06-02 09:41 | Outpatient (REF) | payer MEDICAID, SELFPAY ==
[2022-06-02 10:34] LABS: Appearance Urine HAZY; Color Urine YELLOW; Glucose Urine UA Negative (Negative); Leukocyte Esterase Urine Moderate (2+) (Negative); Nitrite Urine Negative (Negative); Urine Blood Trace (Negative); Urine Ketones Negative (Negative); Urine Protein Negative (Neg-Trace)
[2022-06-02 11:22] LABS: Bacteria Urine 4+ (None Seen); RBC Urine 0-2 /HPF (0-2); Squamous Epithelial Cell Urine 0-2 /HPF; UACC Culture Trigger YES; WBC Urine >50 /HPF (0-5)
[2022-06-02 11:23] LABS: Hyaline Casts Urine 0-2 /LPF
== END 2022-06-02 09:42 | disposition home or self-care (01) ==
LOC: HO.LAB 09:41
PROVIDERS: PCP Internal Medicine; Visit Provider Urology
DX: N39.0 Urinary tract infection, site not specified (principal)
CPT/HCPCS: 81001; 87086; 87088; 87186

== ENCOUNTER 2022-06-08 12:47 | Day surgery (SDC) | payer MEDICAID, SELFPAY ==
--- NOTE | 2022-06-04 13:51 | P.CONAN_ITS ---
Documented by User: Madiha Gauthier NP 06/05/22 13:25 HPI - Anesthesia Eval Consult details Narrative: 61yo M for Cystoscopy with incision of prostate stricture Coumadin for hx DVT PCP cleared PMFSH Active Problems Active Problems: All Active Problems (Updated 04/24/22 @ 09:20 by Oh Rodriguez MD) Prostate stricture (Acute) Colon cancer screening (Acute) Current use of anticoagulant therapy (Acute) Recurrent UTI (urinary tract infection) (Acute) Neurogenic bladder (Acute) Past Medical History Medical History (Updated 06/04/22 @ 13:52 by Madiha Gauthier NP) DVT (deep venous thrombosis) Hx of meningitis Neurogenic bladder Renal cyst, acquired UTI (urinary tract infection) Surgical History Surgical History H/O abdominal surgery History of colonoscopy Social History Social History Patient Tobacco Use Status: Former Tobacco user Are you DNR?: No Advance Directives: No Advance Directives Information Provided: Yes Nutrition Risks: No Nutritional Risk Meds Allergies Allergy/AdvReac Type Severity Reaction Status Date / Time No Known Allergies Allergy Mild NOT Verified 06/08/22 14:06 APPLICABLE Home Medications Medication Instructions Recorded Confirmed Last Taken Type BIOTIN PO 03/05/21 06/01/22 Unknown History CLONAZEPAM PO 03/05/21 06/01/22 Unknown History NITROFURANTOIN PO 03/05/21 06/01/22 Unknown History VITAMIN D 3 PO 03/05/21 06/01/22 Unknown History ZINC PO 03/05/21 06/01/22 Unknown History baclofen 20 mg tablet 20 mg PO QID 03/05/21 06/01/22 06/08/22 History pyridoxine (vitamin B6) [Vitamin PO 03/05/21 06/01/22 Unknown History B-6] varicella-zoster gE vac,2 of 2 50 IM 04/04/21 06/01/22 Unknown History mcg IM suspension (Shingrix gE Antigen Component) clonazepam 1 mg tablet 0 mg PO 08/08/21 06/01/22 Unknown History psyllium husk (aspartame) 3 g PO DAILY PRN constipation 08/08/21 06/01/22 Unknown History gram/5.8 gram oral powder (Reguloid (aspartame)) lanolin alcohols-mineral appl topical BID 08/18/21 06/01/22 Unknown History oil-w.petrolatum-ceresin topical cream (Minerin Creme topical) oxycodone-acetaminophen 5 mg-325 1 tab PO Q8H PRN pain 08/18/21 06/01/22 06/08/22 History mg tablet lidocaine HCl 2 % mucosal jelly ml topical TID 03/10/22 06/01/22 Unknown History Exam Exam Date and Time: June 04, 2022 1351 Narrative Narrative: EKG 04/2022 SR @ 57 Assessment and Plan Assessment Anesthesia Assessment: Chart Reviewed Documented by User: Emily Saucedo MD 06/08/22 14:44 [facility] Past Medical History Medical History (Updated 06/04/22 @ 13:52 by Madiha Gauthier NP) DVT (deep venous thrombosis) Hx of meningitis Neurogenic bladder Renal cyst, acquired UTI (urinary tract infection) Family History Family history of problems with anesthesia: No Surgical History Surgical History H/O abdominal surgery History of colonoscopy History of Problems with Anesthesia: No Social History Social History Patient Tobacco Use Status: Former Tobacco user Are you DNR?: No Advance Directives: No Advance Directives Information Provided: Yes Nutrition Risks: No Nutritional Risk Meds Allergies Allergy/AdvReac Type Severity Reaction Status Date / Time No Known Allergies Allergy Mild NOT Verified 06/08/22 14:06 APPLICABLE Home Medications Medication Instructions Recorded Confirmed Last Taken Type BIOTIN PO 03/05/21 06/01/22 Unknown History CLONAZEPAM PO 03/05/21 06/01/22 Unknown History NITROFURANTOIN PO 03/05/21 06/01/22 Unknown History VITAMIN D 3 PO 03/05/21 06/01/22 Unknown History ZINC PO 03/05/21 06/01/22 Unknown History baclofen 20 mg tablet 20 mg PO QID 03/05/21 06/01/22 06/08/22 History pyridoxine (vitamin B6) [Vitamin PO 03/05/21 06/01/22 Unknown History B-6] varicella-zoster gE vac,2 of 2 50 IM 04/04/21 06/01/22 Unknown History mcg IM suspension (Shingrix gE Antigen Component) clonazepam 1 mg tablet 0 mg PO 08/08/21 06/01/22 Unknown History psyllium husk (aspartame) 3 g PO DAILY PRN constipation 08/08/21 06/01/22 Unknown History gram/5.8 gram oral powder (Reguloid (aspartame)) lanolin alcohols-mineral appl topical BID 08/18/21 06/01/22 Unknown History oil-w.petrolatum-ceresin topical cream (Minerin Creme topical) oxycodone-acetaminophen 5 mg-325 1 tab PO Q8H PRN pain 08/18/21 06/01/22 06/08/22 History mg tablet lidocaine HCl 2 % mucosal jelly ml topical TID 03/10/22 06/01/22 Unknown History Exam Airway Mallampati Class: II (Edentuolus) TM Dist: >3cm Neck ROM: Full Heart: rrr Lungs: cta Assessment and Plan Assessment Anesthesia Assessment: Anesthesia Plan Discussed and Chart Reviewed Final Anesthetic Review Family History of Problems with Anesthesia: No History of Problems with Anesthesia: No NPO: Yes ASA Class: III Final Preanesthetic Review: No Changes in Pt Med Stat, Meds/Allgs Chart Reviewed and Consent Obtained/Reviewed Patient Risk: Intermediate Procedure Risk: Intermediate Anesthetic Plan Anesthetic Plan: GA Disposition: Standard PACU
[2022-06-08 13:31] LABS: INTERNATIONAL NORM RATIO 1.4 (0.9-1.1); Prothrombin Time 16.7 SEC (10.0-13.1)
[2022-06-08] MEDS: Lactated Ringers 1,000 ML 100 ML IVCONT (13:50)
[2022-06-08 13:53] VITALS: BMI 27.4
[2022-06-08 13:58] VITALS: BP 108/67; PULSE 66; RESP 18; TEMP 37; O2SAT 97
--- NOTE | 2022-06-08 14:33 | MHC.SHP ---
Pre-Procedural Eval Section A Date of Service: 06/08/22 The patient is an INPATIENT: No Changes since office visit: No Cold of Flu in the past 2 weeks, No New Medical Problems, No Changes in Medication and No Patient answered all questions The History & Physical has been completed within 30 days and I have reviewed it.: Yes Section B Chief Complaint: disorder of prostate Details of Present Illness: Bladder neck stricture Relevant Family History (Specify if Yes): No Relevant Social History: None Present Medications: see Short Stay Collaborative assessment Medical History: Significant History History of Previous Operations: No relevant previous surgery Allergies: Allergies Allergy/AdvReac Type Severity Reaction Status Date / Time No Known Allergies Allergy Mild NOT Verified 06/08/22 14:06 APPLICABLE Review of Systems Sugical H&P ROS: Negative: Constitution, Cardiovascular, Respiratory, Neurological, Psychiatric, Hem-Onc, Allergic/Immunologic, Gastrointestinal, Genitourinary, Musculoskeletal, Integumentary, Endocrine and Eyes/Ears/Nose/Throat Exam Surgical H&P Exam: Normal: HEENT, Normal: Heart, Normal: Lungs, Normal: Extremities, Normal: Abdomen, Normal: Skin and Normal: Neurological Plan Diagnosis/Plan: Unchanged (Cystoscopy, bladder neck stricture incision) I have reviewed the history and physical and performed a pertinent physical examination on my patient. No changes have occurred unless specified.
[2022-06-08 15:30] VITALS: BP 88/43; PULSE 64; RESP 16; TEMP 36.3; O2SAT 96
[2022-06-08 15:35] VITALS: BP 84/37; PULSE 60; RESP 16; O2SAT 96
[2022-06-08 15:40] VITALS: BP 100/48; PULSE 58; RESP 16; O2SAT 97
--- NOTE | 2022-06-08 15:41 | W.PM.OPN ---
Operative Note Operative Note Date of Service: 06/08/22 Narrative: PreOperative Diagnosis: Bladder outlet obstruction Post Operative Diagnosis: Bladder outlet obstruction Procedure: Transurethral incision of the prostate Surgeon: Dr Oh Rodriguez Anesthesia: General Indications for procedure: Difficulty with catheterization washed performing clean intermittent catheterization secondary to high riding bladder neck. Procedure: After informed consent was verified the patient was brought to the operating room and placed in a supine position. Anesthesia was administered per protocol. Patient was placed in modified dorsal lithotomy position and prepped and draped in a sterile fashion. Safety pause time-out was confirmed. Antibiotics have been given. Twenty-four Citizen [place] resectoscope was inserted per urethra. No abnormalities found the anterior posterior urethra. A high riding bladder neck was seen. The bladder was filled on both ureteric orifices were seen in normal position away from our area of interest. A Adrian knife was secured to the resectoscope. Using settings of 120, 70 incisions were made running from 2 cm distal to each ureteric orifice through the bladder neck and mucosa down the prostate to the veru. This was repeated on both sides. Hemostasis was controlled with cautery. Prostate incisions allowed the prostate to relax in a more open fashion. The resectoscope was removed. A 22 Citizen Of [place] Jensen catheter was placed in 30 cc was placed in the balloon. The bladder was irrigated without difficulty. A snap was then used to gain traction that will be left through transportation and then removed. The Jensen catheter was capped without difficulty. Pathology: None Drains: Jensen catheter
[2022-06-08 15:45] VITALS: BP 91/44; PULSE 60; RESP 16; O2SAT 97
[2022-06-08 16:00] VITALS: BP 97/49; PULSE 60; RESP 16; TEMP 36.1; O2SAT 97
== END 2022-06-08 16:36 | disposition home or self-care (01) ==
PROVIDERS: Nurse Practitioner; PCP Internal Medicine; Visit Provider Urology
PROC: 0TJB8ZZ Inspection of Bladder, Via Natural or Artificial Opening Endoscopic (ICD-10-PCS; CPT 52000; principal; 2022-06-08 14:40)
DX: N42.89 Other specified disorders of prostate (principal); N32.0 Bladder-neck obstruction; N31.9 Neuromuscular dysfunction of bladder, unspecified; Z87.440 Personal history of urinary (tract) infections; N28.1 Cyst of kidney, acquired; Z79.899 Other long term (current) drug therapy; Z86.61 Personal history of infections of the central nervous system; Z87.891 Personal history of nicotine dependence
CPT/HCPCS: 52450; 36415; 85610; J1100; J1956; J2250; J2405; J3010

== ENCOUNTER → 2022-06-10 09:56 | Outpatient (BNVA) | payer MEDICAID, SELFPAY | PROVIDERS: PCP Internal Medicine; Visit Provider Urology | DX: N42.89 Other specified disorders of prostate (principal) | CPT/HCPCS: 99211 ==

== ENCOUNTER → 2022-06-18 10:51 | Outpatient (BNVA) | payer MEDICAID, SELFPAY | PROVIDERS: PCP Internal Medicine; Visit Provider Internal Medicine | DX: I26.99 Other pulmonary embolism without acute cor pulmonale (principal); Z79.01 Long term (current) use of anticoagulants; Z51.81 Encounter for therapeutic drug level monitoring | CPT/HCPCS: 85610; 99211 ==

== ENCOUNTER 2022-07-22 12:06 | Outpatient (REF) | payer MEDICAID, SELFPAY | END 2022-07-22 12:07 | disposition home or self-care (01) | LOC: HO.LAB 12:06 | PROVIDERS: Visit Provider Urology | DX: N39.0 Urinary tract infection, site not specified (principal); N42.89 Other specified disorders of prostate; N31.9 Neuromuscular dysfunction of bladder, unspecified | CPT/HCPCS: 87086; 87088; 87186; 99212 ==

== ENCOUNTER → 2022-08-28 10:43 | Outpatient (BNVA) | payer MEDICAID, SELFPAY | PROVIDERS: PCP Internal Medicine; Visit Provider Internal Medicine | DX: I26.99 Other pulmonary embolism without acute cor pulmonale (principal); Z79.01 Long term (current) use of anticoagulants; Z51.81 Encounter for therapeutic drug level monitoring | CPT/HCPCS: 85610; 99211 ==

== ENCOUNTER → 2022-08-31 11:23 | Outpatient (BNVA) | payer MEDICAID, SELFPAY | PROVIDERS: PCP Internal Medicine; Visit Provider Internal Medicine | DX: I26.99 Other pulmonary embolism without acute cor pulmonale (principal); Z79.01 Long term (current) use of anticoagulants; Z51.81 Encounter for therapeutic drug level monitoring | CPT/HCPCS: 85610; 99211 ==

== ENCOUNTER → 2022-09-14 11:17 | Outpatient (BNVA) | payer MEDICAID, SELFPAY | PROVIDERS: PCP Internal Medicine; Visit Provider Internal Medicine | DX: I26.99 Other pulmonary embolism without acute cor pulmonale (principal); Z79.01 Long term (current) use of anticoagulants; Z51.81 Encounter for therapeutic drug level monitoring | CPT/HCPCS: 85610; 99211 ==

== ENCOUNTER → 2022-10-05 11:17 | Outpatient (BNVA) | payer MEDICAID, SELFPAY | PROVIDERS: PCP Internal Medicine; Visit Provider Internal Medicine | DX: I26.99 Other pulmonary embolism without acute cor pulmonale (principal); Z79.01 Long term (current) use of anticoagulants; Z51.81 Encounter for therapeutic drug level monitoring | CPT/HCPCS: 85610; 99211 ==

== ENCOUNTER → 2022-11-02 11:21 | Outpatient (BNVA) | payer MEDICAID, SELFPAY | PROVIDERS: PCP Internal Medicine; Visit Provider Internal Medicine | DX: I26.99 Other pulmonary embolism without acute cor pulmonale (principal); Z79.01 Long term (current) use of anticoagulants; Z51.81 Encounter for therapeutic drug level monitoring | CPT/HCPCS: 85610; 99211 ==

== ENCOUNTER → 2022-11-30 11:22 | Outpatient (BNVA) | payer MEDICAID, SELFPAY | PROVIDERS: PCP Internal Medicine; Visit Provider Internal Medicine | DX: I26.99 Other pulmonary embolism without acute cor pulmonale (principal); Z79.01 Long term (current) use of anticoagulants; Z51.81 Encounter for therapeutic drug level monitoring | CPT/HCPCS: 85610; 99211 ==

== ENCOUNTER → 2022-12-28 11:34 | Outpatient (BNVA) | payer MEDICAID, SELFPAY | PROVIDERS: PCP Internal Medicine; Visit Provider Internal Medicine | DX: I26.99 Other pulmonary embolism without acute cor pulmonale (principal); Z51.81 Encounter for therapeutic drug level monitoring; Z79.01 Long term (current) use of anticoagulants | CPT/HCPCS: 85610; 99211 ==

== ENCOUNTER → 2023-01-25 10:56 | Outpatient (BNVA) | payer MEDICAID, SELFPAY | PROVIDERS: PCP Internal Medicine; Visit Provider Internal Medicine | DX: I26.99 Other pulmonary embolism without acute cor pulmonale (principal); Z51.81 Encounter for therapeutic drug level monitoring; Z79.01 Long term (current) use of anticoagulants | CPT/HCPCS: 85610; 99211 ==

== ENCOUNTER → 2023-01-28 11:28 | Outpatient (BNVA) | payer MEDICAID, SELFPAY | PROVIDERS: PCP Internal Medicine; Visit Provider Urology | DX: N31.9 Neuromuscular dysfunction of bladder, unspecified (principal); N39.0 Urinary tract infection, site not specified | CPT/HCPCS: 99212 ==

== ENCOUNTER → 2023-02-05 11:23 | Outpatient (BNVA) | payer MEDICAID, SELFPAY | PROVIDERS: PCP Internal Medicine; Visit Provider Internal Medicine | DX: I26.99 Other pulmonary embolism without acute cor pulmonale (principal); Z79.01 Long term (current) use of anticoagulants; Z51.81 Encounter for therapeutic drug level monitoring | CPT/HCPCS: 85610; 99211 ==

== ENCOUNTER → 2023-03-02 12:34 | Outpatient (BNVA) | payer MEDICAID, SELFPAY | PROVIDERS: PCP Internal Medicine; Visit Provider Internal Medicine | DX: I26.99 Other pulmonary embolism without acute cor pulmonale (principal); Z79.01 Long term (current) use of anticoagulants; Z51.81 Encounter for therapeutic drug level monitoring | CPT/HCPCS: 85610; 99211 ==

== ENCOUNTER 2023-03-07 09:29 | Emergency (ER) | payer MEDICAID, SELFPAY ==
[2023-03-07 09:33] VITALS: BP 82/38; PULSE 70; RESP 18; TEMP 36.5; O2SAT 97; BMI 25.8
--- NOTE | 2023-03-07 10:05 | ED_ITS ---
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 He reports that he has taken several courses of antibiotics recently and finished a course of antibiotics for UTI on Wednesday and feels symptoms have not resolved. He states that he was prescribed lidocaine jelly for his urethral discomfort which provides temporary relief. He also feels he has had less erythema around his meatus since being prescribed the lidocaine jelly. He reports subjective fever last week, did not check his temperature, is unsure which day. He denies any abdominal, back, or flank pain. He states that he does not see his urologist, Dr. Rodriguez, again until July. He denies any concern for STIs and states he has not had intercourse since 2018. MD Complaint: other (foul smelling urine, pyuria) Onset (ago): week(s) Duration: constant Exacerbating factors: other (self catheterization) Related Data Home Medications Medication Instructions Recorded Confirmed BIOTIN PO 03/05/21 03/02/23 VITAMIN D 3 PO 03/05/21 03/02/23 ZINC PO 03/05/21 03/02/23 baclofen 20 mg tablet 20 mg PO QID 03/05/21 03/02/23 pyridoxine (vitamin B6) [Vitamin PO 03/05/21 03/02/23 B-6] varicella-zoster gE vac,2 of 2 50 IM 04/04/21 03/02/23 mcg IM suspension (Shingrix gE Antigen Component) clonazepam 1 mg tablet 0 mg PO 08/08/21 03/02/23 psyllium husk (aspartame) 3 g PO DAILY PRN constipation 08/08/21 03/02/23 gram/5.8 gram oral powder (Reguloid (aspartame)) lanolin alcohols-mineral appl topical BID 08/18/21 03/02/23 oil-w.petrolatum-ceresin topical cream (Minerin Creme topical) oxycodone-acetaminophen 5 mg-325 1 tab PO Q8H PRN pain 08/18/21 03/02/23 mg tablet lidocaine HCl 2 % mucosal jelly ml topical TID 03/10/22 03/02/23 naloxone 4 mg/actuation nasal spray 0 spray intranasal 11/30/22 03/02/23 ciprofloxacin HCl 250 mg tablet 250 mg PO BID PRN 03/02/23 03/02/23 (Cipro) Previous Rx's Medication Instructions Recorded warfarin 3 mg tablet 3 mg PO DAILY #90 tabs 08/08/20 bisacodyl 5 mg tablet,delayed 10 mg PO BEDTIME 2 days #4 tabs 08/18/21 release (Dulcolax (bisacodyl)) ascorbic acid (vitamin C) 1,000 mg 1 g PO DAILY 90 days #90 tabs 01/28/23 tablet methenamine hippurate 1 gram tablet 1 g PO DAILY 90 days #90 tabs 01/28/23 sulfamethoxazole 800 1 tab PO BID 10 days #20 tabs 02/10/23 mg-trimethoprim 160 mg tablet (Bactrim DS) nitrofurantoin 100 mg PO BID #10 caps 03/07/23 monohydrate/macrocrystals 100 mg capsule (Macrobid) Allergies Allergy/AdvReac Type Severity Reaction Status Date / Time No Known Allergies Allergy Mild NOT Verified 03/07/23 09:33 APPLICABLE Review of Systems Review of Systems: Yes all other systems are reviewed and are negative Constitutional: Constitutional: Reports chills, Reports fever(s) (subjective), Denies night sweats, Denies poor appetite, Denies weakness and Denies weight loss Eyes: Eyes: Reports no additional eye complaints ENT: Reports system reviewed and no additional complaints, except as documented Cardiovascular: Cardiovascular: Reports no additional cardiovascular complain ts Respiratory: Respiratory: Reports no additional respiratory complaints Gastrointestinal: Gastrointestinal: Reports no additional gastrointestinal complaints Genitourinary: Genitourinary: Denies hematuria, Denies genital lesions, Report s dysuria (pain while straight cathing), Denies flank pain, Denies penile discharge and Denies scrotal swelling Musculoskeletal: Musculoskeletal: Reports no additional musculoskeletal complaints Neurologic: Denies weakness PMFSH Past Medical History Medical History DVT (deep venous thrombosis) Hx of meningitis Neurogenic bladder Renal cyst, acquired UTI (urinary tract infection) Surgical History H/O abdominal surgery History of colonoscopy Social History Social History Patient Tobacco Use Status: Former Tobacco user Advance Directives: No Advance Directives Information Provided: No Physical Exam Vital Signs: Vital Signs: Last Vital Signs Temp 97.7 F 03/07/23 09:33 Pulse 53 03/07/23 12:15 Resp 14 03/07/23 12:15 BP 113/49 L 03/07/23 12:15 Pulse Ox 98 03/07/23 12:15 O2 Del Method Room Air 03/07/23 12:15 BMI result Body Mass Index 25.8 Const: General: cooperative, healthy appearing and no acute distress Orientation/consciousness: oriented to person, oriented to place, oriented to time and patient oriented x3 Limitations: no limitations HEENT: Head: Yes normocephalic and Yes atraumatic Ears: external ears normal General nose exam: Normal external nose present Face and sinus: Yes face symmetric Mouth: oropharynx normal and moist mucous membranes Throat: Yes uvula midline Eyes: Pupils: Equal, round and reactive pupils present Neck: Neck: Yes normal visual inspection and Yes supple Resp: Effort & Inspection: normal respiratory effort and able to speak in complete sentences Auscultation: clear to auscultation bilaterally Cardio: Rate: regular rate Rhythm: regular rhythm Heart sounds: S1 normal heart sound present and S2 normal heart sound present GI: Inspection: Yes normal to inspection and Yes other (Baclofen pump to right side of abdomen) Palpation (GI): Soft to palpation and nontender Auscultation: normoactive bowel sounds : Other: Exam chaperoned by translator interpreter General: Yes no CVA tenderness Penis: uncircumcised Meatus: No Blood at meatus present and Erythema at meatus (mild erythema, no excoriation) Back/Spine/Pelvis: Back: no CVA tenderness Skin: General skin exam: elasticity normal and turgor normal Neuro: General: oriented to person, oriented to place, oriented to time, patient oriented x3, moves all extremities, no focal motor deficits and CN's II- XI intact bilaterally Cranial nerves: Yes Equal, round and reactive pupils present Cognition (Neuro): normal cognition Extrem: General: Yes full ROM, Yes no pedal edema and Yes no calf tenderness Psych: Mental Status: mental status grossly normal Affect: normal affect Thought process: Normal thought process present Course Course Course Narrative: 12:45 Urine positive for 3+ leukocytes, positive nitrates, 4+ bacteria. Patient most recently treated with Cipro on 03/01/23. Most recent urine culture results available which were from 07/22/2022 showed E. coli resistant to Levaquin but susceptible to Macrobid. Will obtain labs to assess kidney function and treat with Macrobid if kidney function is WNL. 13:00 Kidney function is WNL, feel patient is stable for discharge home on Macrobid, instructed him to follow up with urology tomorrow. Return precautions discussed at bedside. 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 On exam patient is nontoxic appearing, awake, A+Ox3, afebrile, hypotensive but patient states this is his baseline and this is consistent with review of EMR, abdomen is soft and nontender, no lesions or excoriation noted to urethra on exam, no CVA tenderness. Concern for UTI or pyelonephritis versus colonization. Less likely nephrolithiasis. Unlikely diverticulitis, appendicitis, constipation, bowel obstruction, mesenteric ischemia. Plan: UA, CT NG Please refer to course for remaining clinical decision making. Differential Diagnosis Differential Diagnoses: The differential diagnosis associated with the presentation includes As above. Admission/Observation Consideration of admission/observation: Escalation of care including admission/observation considered Lab Data [facility] Lab Attestation statement: I reviewed the patient's lab results. 03/07/23 12:21 03/07/23 12:21 Labs: Lab Results 03/07/23 03/07/23 03/07/23 Range/Units 11:11 11:30 12:21 WBC 4.5 L (4.8-10.8) X10*3/uL RBC 4.69 (4.60-5.80) X10*6/uL Hgb 13.3 L (14.0-18.0) g/dl Hct 41.6 L (42.0-52.0) % MCV 88.7 (80.0-98.0) fL MCH 28.4 (27.0-33.0) pg MCHC 32.0 (31.0-36.0) g/dl RDW 13.4 (11.0-16.0) % Plt Count 154 L (160-400) X10*3/uL MPV 9.3 L (9.4-12.4) fL Immature Gran % (Auto) 0.2 (0.0-0.4) % Neut % (Auto) 53.4 (45-73) % Lymph % (Auto) 30.5 (20-40) % [place] % (Auto) 13.5 H (2-11) % Eos % (Auto) 2.0 (0-4) % Baso % (Auto) 0.4 (0-2) % Lymph # (Auto) 1.4 (1.2-4.9) X10*3/uL [place] # (Auto) 0.6 (0.1-1.2) X10*3/uL Eos # (Auto) 0.1 (0.0-0.4) X10*3/uL Baso # (Auto) 0.0 (0.0-0.2) X10*3/uL Abs Immat Gran (auto) 0.01 (0.00-0.03) X10*3/uL Absolute Neuts (auto) 2.4 (2.0-8.3) x10*3/uL Absolute Nucleated RBC 0.000 (0.0-0.012) X10*3/uL Nucleated RBC % (auto) 0.0 (0.0-0.2) /100WBC Sodium (135-145) mmol/L Potassium (3.3-5.1) mmol/L Chloride (96-108) mmol/L Carbon Dioxide (22-29) mmol/L Anion Gap (12-20) BUN (9-16) mg/dL Creatinine (0.5-1.4) mg/dL Estim Creat Clear Calc Estimated GFR Random Glucose (60-115) mg/dL Calcium (8.4-10.2) mg/dL Urine Color Yellow Urine Appearance Cloudy Urine pH 6.5 (5.0-9.0) Ur Specific [place] 1.015 (1.005-1.025) Urine Protein Negative (Neg-Trace) mg/dL Urine Glucose (UA) Negative (Negative) mg/dL Urine Ketones Negative (Negative) mg/dL Urine Blood Negative (Negative) Urine Nitrite Positive H (Negative) Ur Leukocyte Esterase Large (3+) H (Negative) Urine RBC 0-2 (0-2) /HPF Urine WBC >50 H (0-5) /HPF Ur Squamous Epith Cells 0-2 (0-2) /HPF Urine Bacteria 4+ (None Seen) Hyaline Casts 0-2 (0-2) /LPF Chlam trachomat DNA PCR NOT DETECTED (Not Detect.) N.gonorrhoeae DNA (PCR) NOT DETECTED (Not Detect.) 03/07/23 Range/Units 12:21 WBC (4.8-10.8) X10*3/uL RBC (4.60-5.80) X10*6/uL Hgb (14.0-18.0) g/dl Hct (42.0-52.0) % MCV (80.0-98.0) fL MCH (27.0-33.0) pg MCHC (31.0-36.0) g/dl RDW (11.0-16.0) % Plt Count (160-400) X10*3/uL MPV (9.4-12.4) fL Immature Gran % (Auto) (0.0-0.4) % Neut % (Auto) (45-73) % Lymph % (Auto) (20-40) % [place] % (Auto) (2-11) % Eos % (Auto) (0-4) % Baso % (Auto) (0-2) % Lymph # (Auto) (1.2-4.9) X10*3/uL [place] # (Auto) (0.1-1.2) X10*3/uL Eos # (Auto) (0.0-0.4) X10*3/uL Baso # (Auto) (0.0-0.2) X10*3/uL Abs Immat Gran (auto) (0.00-0.03) X10*3/uL Absolute Neuts (auto) (2.0-8.3) x10*3/uL Absolute Nucleated RBC (0.0-0.012) X10*3/uL Nucleated RBC % (auto) (0.0-0.2) /100WBC Sodium 139 (135-145) mmol/L Potassium 4.3 (3.3-5.1) mmol/L Chloride 106 (96-108) mmol/L Carbon Dioxide 28 (22-29) mmol/L Anion Gap 9 L (12-20) BUN 15 (9-16) mg/dL Creatinine 0.69 (0.5-1.4) mg/dL Estim Creat Clear Calc 94.0 Estimated GFR > 60 Random Glucose 95 (60-115) mg/dL Calcium 8.9 (8.4-10.2) mg/dL Urine Color Urine Appearance Urine pH (5.0-9.0) Ur Specific Preston (1.005-1.025) Urine Protein (Neg-Trace) mg/dL Urine Glucose (UA) (Negative) mg/dL Urine Ketones (Negative) mg/dL Urine Blood (Negative) Urine Nitrite (Negative) Ur Leukocyte Esterase (Negative) Urine RBC (0-2) /HPF Urine WBC (0-5) /HPF Ur Squamous Epith Cells (0-2) /HPF Urine Bacteria (None Seen) Hyaline Casts (0-2) /LPF Chlam trachomat DNA PCR (Not Detect.) N.gonorrhoeae DNA (PCR) (Not Detect.) External Record Review External record reviewed: Inpatient record, Office record, Outpatient record and Prior outpatient labs Prescription Management I considered prescription management with: Antibiotic Chronic Conditions Patient?s care impacted by: Other Discharge Plan Discharge Clinical Impression: Recurrent UTI (urinary tract infection) Patient Disposition: Home, Self-Care Instructions: Urinary Tract Infection in Men (DC) Additional Instructions: You have been evaluated in the emergency department today for urinary symptoms. Your evaluation, including urinalysis, it suggests that your symptoms are due to a urinary tract infection. Please take your prescribed antibiotics for the full course of medication as directed. Please follow-up with your urologist within 2 days. Return to the emergency department if you experience fevers 100.4? F or greater, worsening or uncontrolled pain, vomiting, flank pain, or for any other concerning symptoms. Prescriptions: New nitrofurantoin monohyd/m-cryst [Macrobid] 100 mg capsule 100 mg PO BID Qty: 10 0RF Rx Instructions: must administer with a meal/food No Action sulfamethoxazole-trimethoprim [Bactrim DS] 800-160 mg tablet 1 tab PO BID 10 Days Qty: 20 0RF warfarin 3 mg tablet 3 mg PO DAILY Qty: 90 0RF Protocol: Dose Management Condition: Wednesday (Week One) Dose/Route: 3 mg Instruction: 1 x 3 mg tablet Condition: Wednesday Dose/Route: 0 mg Instruction: 0 tablets Condition: Wednesday Dose/Route: 3 mg Instruction: 1 x 3 mg tablet Condition: Wednesday Dose/Route: 0 mg Instruction: 0 tablets Condition: Dose/Route: 1.5 mg Instruction: 0.5 x 3 mg tablets Condition: Wednesday Dose/Route: 3 mg Instruction: 1 x 3 mg tablet Condition: Wednesday Dose/Route: 3 mg Instruction: 1 x 3 mg tablet Condition: Wednesday (Week Two) Dose/Route: 1.5 mg Instruction: 0.5 x 3 mg tablets Condition: Wednesday Dose/Route: 1.5 mg Instruction: 0.5 x 3 mg tablets Condition: Wednesday Dose/Route: 3 mg Instruction: 1 x 3 mg tablet Condition: Wednesday Dose/Route: 3 mg Instruction: 1 x 3 mg tablet Condition: Dose/Route: 1.5 mg Instruction: 0.5 x 3 mg tablets Condition: Wednesday Dose/Route: 3 mg Instruction: 1 x 3 mg tablet Condition: Wednesday Dose/Route: 3 mg Instruction: 1 x 3 mg tablet Protocol Text: Adjustment Start Date: Wednesday03/02/23 INR Value: 3.8 INR Date: 03/02/23 Recheck Date: 03/08/23 Additional Instructions: EAT GREENS TODAY THEN AGAIN OVER THE WEEKEND baclofen 20 mg tablet 20 mg PO QID VITAMIN D 3 PO Patient Comments: 1 TAB DAILY ZINC PO Patient Comments: PT STATES HE TAKES 12MG / DAY BIOTIN PO Patient Comments: TAKE T TAB DAILY pyridoxine (vitamin B6) PO Patient Comments: 1 TAB DAILY Shingrix gE Antigen Component 50 mcg suspension for reconstitution IM bisacodyl [Dulcolax (bisacodyl)] 5 mg tablet,delayed release (DR/EC) 10 mg PO BEDTIME 2 Days Qty: 4 0RF oxycodone-acetaminophen 5-325 mg tablet 1 tab PO Q8H PRN (Reason: pain) Minerin Creme Cream topical BID clonazepam 1 mg tablet 0 mg PO Reguloid (aspartame) 3 gram/5.8 gram powder PO DAILY PRN (Reason: constipation) ascorbic acid (vitamin C) 1,000 mg tablet 1 g PO DAILY 90 Days Qty: 90 1RF methenamine hippurate 1 gram tablet 1 g PO DAILY 90 Days Qty: 90 1RF lidocaine HCl 2 % jelly topical TID naloxone 4 mg/actuation spray,non-aerosol 0 spray intranasal ciprofloxacin HCl [Cipro] 250 mg tablet 250 mg PO BID PRN Referrals: Oh Rodriguez MD [Physician] - Print Language: Kyrgyz
[2023-03-07 11:37] LABS: Appearance Urine Cloudy; Color Urine Yellow; Glucose Urine UA Negative (Negative); Leukocyte Esterase Urine Large (3+) (Negative); Nitrite Urine Positive (Negative); PH 6.5 (5.0-9.0); Specific Gravity - Urine 1.015 (1.005-1.025); UMIC TRIGGER UACC YES; Urine Blood Negative (Negative); Urine Ketones Negative (Negative); Urine Protein Negative (Neg-Trace)
[2023-03-07 11:40] LABS: Bacteria Urine 4+ (None Seen); Hyaline Casts Urine 0-2 /LPF (0-2); RBC Urine 0-2 /HPF (0-2); Squamous Epithelial Cell Urine 0-2 /HPF (0-2); UACC Culture Trigger YES; WBC Urine >50 /HPF (0-5)
[2023-03-07 12:15] VITALS: BP 113/49; PULSE 53; RESP 14; O2SAT 98
[2023-03-07 12:24] LABS: MANUAL DIFF FLAG NO
[2023-03-07 12:27] LABS: Basophils Percent Auto 0.4 % (0-2); Eosinophils Absolute Auto 0.1 X10*3/uL (0.0-0.4); Hematocrit 41.6 % (42.0-52.0); Hemoglobin 13.3 g/dl (14.0-18.0); Imm Gran Abs Auto 0.01 X10*3/uL (0.00-0.03); Imm Gran Pct Auto 0.2 % (0.0-0.4); Lymphocytes Absolute Auto 1.4 X10*3/uL (1.2-4.9); Lymphocytes Percent Auto 30.5 % (20-40); Mean Corpuscular Hemoglobin 28.4 pg (27.0-33.0); Mean Corpuscular Volume 88.7 fL (80.0-98.0); Mean Platelet Volume 9.3 fL (9.4-12.4); Monocytes Absolute Auto 0.6 X10*3/uL (0.1-1.2); Monocytes Percent Auto 13.5 % (2-11); Neutrophils Absolute Auto 2.4 x10*3/uL (2.0-8.3); Neutrophils Percent Auto 53.4 % (45-73); Platelet Count 154 X10*3/uL (160-400); Red Blood Count 4.69 X10*6/uL (4.60-5.80); Red Cell Distribution Width 13.4 % (11.0-16.0); White Blood Count 4.5 X10*3/uL (4.8-10.8)
[2023-03-07 12:57] LABS: Anion Gap 9 (12-20); Blood Urea Nitrogen 15 mg/dL (9-16); Calcium 8.9 mg/dL (8.4-10.2); Carbon Dioxide 28 mmol/L (22-29); Chloride 106 mmol/L (96-108); Estimated Glomerular Filt Rate > 60; Glucose Random 95 mg/dL (60-115); Potassium 4.3 mmol/L (3.3-5.1); Sodium 139 mmol/L (135-145)
[2023-03-07 13:24] LABS: CT PCR NOT DETECTED (Not Detect.); NG PCR NOT DETECTED (Not Detect.)
--- NOTE | 2023-03-07 13:39 | PC.NURSE ---
pt preferred phone number
== END 2023-03-07 13:56 | disposition home or self-care (01) ==
PROVIDERS: Registered Nurse Emergency; Emergency Provider Emergency Medicine Emergency Medical Services; PCP Internal Medicine
DX: N39.0 Urinary tract infection, site not specified (principal); Z79.899 Other long term (current) drug therapy
CPT/HCPCS: 0353U; 36415; 80048; 81001; 85025; 87086; 87088; 87186; 99284

== ENCOUNTER → 2023-03-08 10:28 | Outpatient (BNVA) | payer MEDICAID, SELFPAY | PROVIDERS: PCP Internal Medicine; Visit Provider Internal Medicine | DX: I26.99 Other pulmonary embolism without acute cor pulmonale (principal); Z79.01 Long term (current) use of anticoagulants; Z51.81 Encounter for therapeutic drug level monitoring | CPT/HCPCS: 85610; 99211 ==

== ENCOUNTER → 2023-03-17 10:42 | Outpatient (BNVA) | payer MEDICAID, SELFPAY | PROVIDERS: PCP Internal Medicine; Visit Provider Internal Medicine | DX: I26.99 Other pulmonary embolism without acute cor pulmonale (principal); Z79.01 Long term (current) use of anticoagulants; Z51.81 Encounter for therapeutic drug level monitoring | CPT/HCPCS: 85610; 99211 ==

== ENCOUNTER 2023-03-22 08:52 | Emergency (ER) | payer MEDICAID, SELFPAY ==
[2023-03-22 09:01] VITALS: BP 85/51; PULSE 78; RESP 17; TEMP 36.6; O2SAT 96; BMI 25.8
[2023-03-22 09:32] LABS: MANUAL DIFF FLAG NO
[2023-03-22 09:34] LABS: Basophils Percent Auto 0.4 % (0-2); Eosinophils Absolute Auto 0.1 X10*3/uL (0.0-0.4); Eosinophils Percent Auto 1.3 % (0-4); Hematocrit 45.8 % (42.0-52.0); Hemoglobin 14.4 g/dl (14.0-18.0); Imm Gran Abs Auto 0.01 X10*3/uL (0.00-0.03); Imm Gran Pct Auto 0.2 % (0.0-0.4); Lymphocytes Absolute Auto 0.9 X10*3/uL (1.2-4.9); Lymphocytes Percent Auto 19.3 % (20-40); Mean Corpuscular HGB Conc 31.4 g/dl (31.0-36.0); Mean Corpuscular Hemoglobin 28.1 pg (27.0-33.0); Mean Corpuscular Volume 89.5 fL (80.0-98.0); Mean Platelet Volume 9.3 fL (9.4-12.4); Monocytes Absolute Auto 0.5 X10*3/uL (0.1-1.2); Monocytes Percent Auto 11.3 % (2-11); Neutrophils Absolute Auto 3.2 x10*3/uL (2.0-8.3); Neutrophils Percent Auto 67.5 % (45-73); Platelet Count 180 X10*3/uL (160-400); Red Blood Count 5.12 X10*6/uL (4.60-5.80); Red Cell Distribution Width 13.3 % (11.0-16.0); White Blood Count 4.8 X10*3/uL (4.8-10.8)
[2023-03-22 09:38] LABS: Appearance Urine Turbid; Color Urine Dark Yellow; Glucose Urine UA Negative (Negative); Leukocyte Esterase Urine Large (3+) (Negative); Nitrite Urine Positive (Negative); Specific Gravity - Urine 1.025 (1.005-1.025); UMIC TRIGGER UACC YES; Urine Blood Small (1+) (Negative); Urine Ketones Trace mg/dL (Negative); Urine Protein 30 (1+) mg/dL (Neg-Trace)
[2023-03-22 10:02] LABS: Bacteria Urine 4+ (None Seen); Hyaline Casts Urine 0-2 /LPF (0-2); Squamous Epithelial Cell Urine 0-2 /HPF (0-2); UACC Culture Trigger YES; WBC Clumps Urine Present; WBC Urine >50 /HPF (0-5)
[2023-03-22 10:07] LABS: Lactic Acid 1.9 mmol/L (0.5-2.0)
[2023-03-22 10:10] LABS: Anion Gap 10 (12-20); Blood Urea Nitrogen 16 mg/dL (9-16); Calcium 9.2 mg/dL (8.4-10.2); Carbon Dioxide 29 mmol/L (22-29); Chloride 107 mmol/L (96-108); Creatinine Clr Calc Pharmacy 87.7; Estimated Glomerular Filt Rate > 60; Glucose Random 74 mg/dL (60-115); Potassium 4.4 mmol/L (3.3-5.1); Sodium 142 mmol/L (135-145)
--- NOTE | 2023-03-22 11:17 | ED_ITS ---
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 Also had subjective fever and chills on arrival patient's blood pressure was 85/51 which was when using the bigger cuff recheck blood pressure was 112/62 afebrile Related Data Home Medications Medication Instructions Recorded Confirmed BIOTIN PO 03/05/21 03/02/23 VITAMIN D 3 PO 03/05/21 03/02/23 ZINC PO 03/05/21 03/02/23 baclofen 20 mg tablet 20 mg PO QID 03/05/21 03/02/23 pyridoxine (vitamin B6) [Vitamin PO 03/05/21 03/02/23 B-6] varicella-zoster gE vac,2 of 2 50 IM 04/04/21 03/02/23 mcg IM suspension (Shingrix gE Antigen Component) clonazepam 1 mg tablet 0 mg PO 08/08/21 03/02/23 psyllium husk (aspartame) 3 g PO DAILY PRN constipation 08/08/21 03/02/23 gram/5.8 gram oral powder (Reguloid (aspartame)) lanolin alcohols-mineral appl topical BID 08/18/21 03/02/23 oil-w.petrolatum-ceresin topical cream (Minerin Creme topical) oxycodone-acetaminophen 5 mg-325 1 tab PO Q8H PRN pain 08/18/21 03/02/23 mg tablet lidocaine HCl 2 % mucosal jelly ml topical TID 03/10/22 03/02/23 naloxone 4 mg/actuation nasal spray 0 spray intranasal 11/30/22 03/02/23 ciprofloxacin HCl 250 mg tablet 250 mg PO BID PRN 03/02/23 03/02/23 (Cipro) Previous Rx's Medication Instructions Recorded warfarin 3 mg tablet 3 mg PO DAILY #90 tabs 08/08/20 bisacodyl 5 mg tablet,delayed 10 mg PO BEDTIME 2 days #4 tabs 08/18/21 release (Dulcolax (bisacodyl)) ascorbic acid (vitamin C) 1,000 mg 1 g PO DAILY 90 days #90 tabs 01/28/23 tablet methenamine hippurate 1 gram tablet 1 g PO DAILY 90 days #90 tabs 01/28/23 sulfamethoxazole 800 1 tab PO BID 10 days #20 tabs 02/10/23 mg-trimethoprim 160 mg tablet (Bactrim DS) nitrofurantoin 100 mg PO BID #10 caps 03/07/23 monohydrate/macrocrystals 100 mg capsule (Macrobid) cefuroxime axetil 250 mg tablet 250 mg PO BID 10 days #20 tabs 03/22/23 Allergies Allergy/AdvReac Type Severity Reaction Status Date / Time No Known Allergies Allergy Mild NOT Verified 03/17/23 10:47 APPLICABLE Review of Systems Review of Systems: Yes all other systems are reviewed and are negative PMFSH Past Medical History Medical History DVT (deep venous thrombosis) Hx of meningitis Neurogenic bladder Paraplegia Renal cyst, acquired UTI (urinary tract infection) Surgical History H/O abdominal surgery History of colonoscopy Social History Social History Patient Tobacco Use Status: Former Tobacco user Advance Directives: No Advance Directives Information Provided: Yes Physical Exam Vital Signs: Vital Signs: Last Vital Signs Temp 98.0 F 03/22/23 18:22 Pulse 70 03/22/23 18:22 Resp 12 03/22/23 18:22 BP 105/51 L 03/22/23 18:22 Pulse Ox 96 03/22/23 18:22 O2 Del Method Room Air 03/22/23 18:22 BMI result Body Mass Index 25.8 Appearance: Alert. Oriented X3. No acute distress. ENT: Pharynx normal. Oral Mucosa moist Neck: Normal inspection. Neck supple. CVS: Normal heart rate and rhythm. Pulses normal. Respiratory: No respiratory distress. Equal air entry bilateral, no wheezing/rales/rhonchi Abdomen: Soft and nontender. Bowel sounds are present, no mass palpable, no CVA tenderness Skin: Skin warm and dry. Normal skin color. Normal skin turgor. Extremities: Paraplegic Neuro: Oriented X 3. Paraplegic Medications Administered Discontinued Medications Generic Name Dose Route Start Last Admin Trade Name Freq PRN Reason Stop Dose Admin Ceftriaxone Sodium 1 gm/ 50 mls @ 100 mls/hr 03/22/23 16:36 03/22/23 18:30 Sodium Chloride IV 03/22/23 17:05 Infused ONCE ONE Infusion Sodium Chloride 1,000 mls @ 999 mls/hr 03/22/23 16:52 03/22/23 18:30 Ns IV 03/22/23 17:52 Infused .Q1H1M ONE Infusion Medical Decision Making Medical Decision Making [facility] Narrative: Patient with recurrent UTI previous cultures showed E coli sensitive to cefuroxime patient was given 1 g of IVC for cefuroxime. Blood pressure stable no signs of sepsis discharge patient home on Ceftin Lab Data [facility] Lab Attestation statement: I reviewed the patient's lab results. 03/22/23 09:21 03/22/23 09:21 Labs: Lab Results 03/22/23 03/22/23 03/22/23 Range/Units 09:21 09:21 09:21 WBC 4.8 (4.8-10.8) X10*3/uL RBC 5.12 (4.60-5.80) X10*6/uL Hgb 14.4 (14.0-18.0) g/dl Hct 45.8 (42.0-52.0) % MCV 89.5 (80.0-98.0) fL MCH 28.1 (27.0-33.0) pg MCHC 31.4 (31.0-36.0) g/dl RDW 13.3 (11.0-16.0) % Plt Count 180 (160-400) X10*3/uL MPV 9.3 L (9.4-12.4) fL Immature Gran % (Auto) 0.2 (0.0-0.4) % Neut % (Auto) 67.5 (45-73) % Lymph % (Auto) 19.3 L (20-40) % [place] % (Auto) 11.3 H (2-11) % Eos % (Auto) 1.3 (0-4) % Baso % (Auto) 0.4 (0-2) % Lymph # (Auto) 0.9 L (1.2-4.9) X10*3/uL [place] # (Auto) 0.5 (0.1-1.2) X10*3/uL Eos # (Auto) 0.1 (0.0-0.4) X10*3/uL Baso # (Auto) 0.0 (0.0-0.2) X10*3/uL Abs Immat Gran (auto) 0.01 (0.00-0.03) X10*3/uL Absolute Neuts (auto) 3.2 (2.0-8.3) x10*3/uL Absolute Nucleated RBC 0.000 (0.0-0.012) X10*3/uL Nucleated RBC % (auto) 0.0 (0.0-0.2) /100WBC Sodium 142 (135-145) mmol/L Potassium 4.4 (3.3-5.1) mmol/L Chloride 107 (96-108) mmol/L Carbon Dioxide 29 (22-29) mmol/L Anion Gap 10 L (12-20) BUN 16 (9-16) mg/dL Creatinine 0.74 (0.5-1.4) mg/dL Estim Creat Clear Calc 87.7 Estimated GFR > 60 Random Glucose 74 (60-115) mg/dL Lactic Acid 1.9 (0.5-2.0) mmol/L Calcium 9.2 (8.4-10.2) mg/dL Urine Color Urine Appearance Urine pH (5.0-9.0) Ur Specific [place] (1.005-1.025) Urine Protein (Neg-Trace) mg/dL Urine Glucose (UA) (Negative) mg/dL Urine Ketones (Negative) mg/dL Urine Blood (Negative) Urine Nitrite (Negative) Ur Leukocyte Esterase (Negative) Urine RBC (0-2) /HPF Urine WBC (0-5) /HPF Urine WBC Clumps Ur Squamous Epith Cells (0-2) /HPF Urine Bacteria (None Seen) Hyaline Casts (0-2) /LPF 03/22/23 Range/Units 09:28 WBC (4.8-10.8) X10*3/uL RBC (4.60-5.80) X10*6/uL Hgb (14.0-18.0) g/dl Hct (42.0-52.0) % MCV (80.0-98.0) fL MCH (27.0-33.0) pg MCHC (31.0-36.0) g/dl RDW (11.0-16.0) % Plt Count (160-400) X10*3/uL MPV (9.4-12.4) fL Immature Gran % (Auto) (0.0-0.4) % Neut % (Auto) (45-73) % Lymph % (Auto) (20-40) % [place]berry % (Auto) (2-11) % Eos % (Auto) (0-4) % Baso % (Auto) (0-2) % Lymph # (Auto) (1.2-4.9) X10*3/uL [place] # (Auto) (0.1-1.2) X10*3/uL Eos # (Auto) (0.0-0.4) X10*3/uL Baso # (Auto) (0.0-0.2) X10*3/uL Abs Immat Gran (auto) (0.00-0.03) X10*3/uL Absolute Neuts (auto) (2.0-8.3) x10*3/uL Absolute Nucleated RBC (0.0-0.012) X10*3/uL Nucleated RBC % (auto) (0.0-0.2) /100WBC Sodium (135-145) mmol/L Potassium (3.3-5.1) mmol/L Chloride (96-108) mmol/L Carbon Dioxide (22-29) mmol/L Anion Gap (12-20) BUN (9-16) mg/dL Creatinine (0.5-1.4) mg/dL Estim Creat Clear Calc Estimated GFR Random Glucose (60-115) mg/dL Lactic Acid (0.5-2.0) mmol/L Calcium (8.4-10.2) mg/dL Urine Color Dark Yellow Urine Appearance Turbid Urine pH 6.0 (5.0-9.0) Ur Specific [place] 1.025 (1.005-1.025) Urine Protein 30 (1+) H (Neg-Trace) mg/dL Urine Glucose (UA) Negative (Negative) mg/dL Urine Ketones Trace (Negative) mg/dL Urine Blood Small (1+) H (Negative) Urine Nitrite Positive H (Negative) Ur Leukocyte Esterase Large (3+) H (Negative) Urine RBC 3-5 H (0-2) /HPF Urine WBC >50 H (0-5) /HPF Urine WBC Clumps Present Ur Squamous Epith Cells 0-2 (0-2) /HPF Urine Bacteria 4+ (None Seen) Hyaline Casts 0-2 (0-2) /LPF Discharge Plan Discharge Clinical Impression: Recurrent UTI (urinary tract infection) Patient Disposition: Home, Self-Care Instructions: Urinary Tract Infection in Men (ED) Additional Instructions: Drink plenty of fluids Antibiotic as prescribed Report to the ER if not better , if have high fever/vomiting/flank pain Prescriptions: New cefuroxime axetil 250 mg tablet 250 mg PO BID 10 Days Qty: 20 0RF No Action sulfamethoxazole-trimethoprim [Bactrim DS] 800-160 mg tablet 1 tab PO BID 10 Days Qty: 20 0RF nitrofurantoin monohyd/m-cryst [Macrobid] 100 mg capsule 100 mg PO BID Qty: 10 0RF Rx Instructions: must administer with a meal/food warfarin 3 mg tablet 3 mg PO DAILY Qty: 90 0RF Protocol: Dose Management Condition: Wednesday (Week One) Dose/Route: 3 mg Instruction: 1 x 3 mg tablet Condition: Wednesday Dose/Route: 1.5 mg Instruction: 0.5 x 3 mg tablets Condition: Wednesday Dose/Route: 3 mg Instruction: 1 x 3 mg tablet Condition: Wednesday Dose/Route: 3 mg Instruction: 1 x 3 mg tablet Condition: Dose/Route: 1.5 mg Instruction: 0.5 x 3 mg tablets Condition: Wednesday Dose/Route: 3 mg Instruction: 1 x 3 mg tablet Condition: Wednesday Dose/Route: 3 mg Instruction: 1 x 3 mg tablet Condition: Wednesday (Week Two) Dose/Route: 3 mg Instruction: 1 x 3 mg tablet Condition: Wednesday Dose/Route: 1.5 mg Instruction: 0.5 x 3 mg tablets Condition: Wednesday Dose/Route: 3 mg Instruction: 1 x 3 mg tablet Condition: Wednesday Dose/Route: 3 mg Instruction: 1 x 3 mg tablet Condition: Dose/Route: 1.5 mg Instruction: 0.5 x 3 mg tablets Condition: Wednesday Dose/Route: 3 mg Instruction: 1 x 3 mg tablet Condition: Wednesday Dose/Route: 3 mg Instruction: 1 x 3 mg tablet Protocol Text: Adjustment Start Date: Wednesday03/17/23 INR Value: 2.9 INR Date: 03/17/23 Recheck Date: 04/01/23 baclofen 20 mg tablet 20 mg PO QID VITAMIN D 3 PO Patient Comments: 1 TAB DAILY ZINC PO Patient Comments: PT STATES HE TAKES 12MG / DAY BIOTIN PO Patient Comments: TAKE T TAB DAILY pyridoxine (vitamin B6) PO Patient Comments: 1 TAB DAILY Shingrix gE Antigen Component 50 mcg suspension for reconstitution IM bisacodyl [Dulcolax (bisacodyl)] 5 mg tablet,delayed release (DR/EC) 10 mg PO BEDTIME 2 Days Qty: 4 0RF oxycodone-acetaminophen 5-325 mg tablet 1 tab PO Q8H PRN (Reason: pain) Minerin Creme Cream topical BID clonazepam 1 mg tablet 0 mg PO Reguloid (aspartame) 3 gram/5.8 gram powder PO DAILY PRN (Reason: constipation) ascorbic acid (vitamin C) 1,000 mg tablet 1 g PO DAILY 90 Days Qty: 90 1RF methenamine hippurate 1 gram tablet 1 g PO DAILY 90 Days Qty: 90 1RF lidocaine HCl 2 % jelly topical TID naloxone 4 mg/actuation spray,non-aerosol 0 spray intranasal ciprofloxacin HCl [Cipro] 250 mg tablet 250 mg PO BID PRN
[2023-03-22 13:30] VITALS: BP 98/54; PULSE 71; RESP 16; TEMP 35.8; O2SAT 98
[2023-03-22 15:41] VITALS: BP 85/55; PULSE 83; RESP 18; TEMP 36.2; O2SAT 98
--- NOTE | 2023-03-22 15:42 | MHC.EDTECH ---
PATIENT 2ND SET OF BLOOD CULTURE DRAWN AND SENT TO LAB ,VITALS SIGN TAKEN ,PT HAS NO DISTRESS AT THIS TIME .
--- NOTE | 2023-03-22 16:02 | MHC.EDTECH ---
PATIENT 2ND SET BLOOD CULTURE DRAWN AND SENT TO LAB ,VITALS SIGN TAKEN ,CLAM GROWER AWARE OF PT LOW BP ,PATIENT WAS BROUGHT BACK TO ROOM 13 .
[2023-03-22 16:53] VITALS: BP 112/62; PULSE 67; RESP 12; TEMP 37.3; O2SAT 94
[2023-03-22] MEDS: 0.9 % Sodium Chloride 1,000 ML 999 ML IV (17:01)
[2023-03-22] MEDS: cefTRIAXone sodium 1 GM in 0.9 % Sodium Chloride 50 ML IV (17:08)
[2023-03-22 18:22] VITALS: BP 105/51; PULSE 70; RESP 12; TEMP 36.7; O2SAT 96
[2023-03-22 18:47] VITALS: BP 105/57; PULSE 64; RESP 13; TEMP 36.6; O2SAT 98
== END 2023-03-22 19:10 | disposition home or self-care (01) ==
PROVIDERS: Emergency Provider Internal Medicine; PCP Internal Medicine
DX: N39.0 Urinary tract infection, site not specified (principal); B96.20 Unspecified Escherichia coli [E. coli] as the cause of diseases classified elsewhere; Z87.440 Personal history of urinary (tract) infections; Z86.718 Personal history of other venous thrombosis and embolism; Z79.01 Long term (current) use of anticoagulants
CPT/HCPCS: 36415; 80048; 81001; 83605; 85025; 87040; 87086; 87088; 87186; 96361; 96374; 99284; J0696

== ENCOUNTER → 2023-03-23 15:34 | Outpatient (BNVA) | payer MEDICAID, SELFPAY | PROVIDERS: PCP Internal Medicine; Visit Provider Internal Medicine | DX: I26.99 Other pulmonary embolism without acute cor pulmonale (principal); Z79.01 Long term (current) use of anticoagulants; Z51.81 Encounter for therapeutic drug level monitoring | CPT/HCPCS: 85610; 99212 ==

== ENCOUNTER → 2023-04-02 11:27 | Outpatient (BNVA) | payer MEDICAID, SELFPAY | PROVIDERS: PCP Internal Medicine; Visit Provider Internal Medicine | DX: I26.99 Other pulmonary embolism without acute cor pulmonale (principal); Z79.01 Long term (current) use of anticoagulants; Z51.81 Encounter for therapeutic drug level monitoring | CPT/HCPCS: 85610; 99211 ==

== ENCOUNTER 2023-04-09 13:37 | Outpatient (AMB) | payer MEDICAID, SELFPAY ==
--- NOTE | 2023-04-09 14:27 | MHC.OFFVIS ---
Intake Intake Visit Reasons: cysto Intake Note: Patient is present for Follow Up Urology Med:Methenamine, Vitamin b6 Antibiotic Allergy: None Blood Thinner: Warfarin Allergies No Known Allergies Allergy (Mild, Verified 06/29/23 11:34) NOT APPLICABLE Medication List - Last Reconciled 04/09/23 by Oh Rodriguez MD ascorbic acid (vitamin C) 1 g PO DAILY 90 days baclofen 20 mg PO QID [BIOTIN PO] bisacodyl (Dulcolax (bisacodyl)) 10 mg (2 x 5 mg) PO BEDTIME 2 days clonazepam 0 mg PO lanolin dkxvfpi-so-x.pet-ceres (Minerin Creme topical) appl topical BID lidocaine HCl 2% mL topical TID methenamine hippurate 1 g PO DAILY 90 days naloxone 4 mg/actuation 0 sprays intranasal oxycodone-acetaminophen 5-325 mg 1 tab PO Q8H PRN psyllium husk (aspartame) 3 gram/5.8 gram (Reguloid (aspartame)) grams PO DAILY PRN pyridoxine (vitamin B6) (Vitamin B-6) PO varicella-zoster gE vac,2 of 2 (Shingrix gE Antigen Component) IM [VITAMIN D 3 PO] warfarin 3 mg See Protocol PO DAILY [ZINC PO] HPI HPI Comments History of Present Illness Details Erasmo is a very pleasant male. He is a patient of . He is seen for the following urologic conditions - neurogenic bladder - requires clean intermittent catheterization Scottish translation provided by qualified medical practice assistant Has recurrent feeling of infection Would like to repeat - 7 days Levaquin Continue with suppression ascorbic acid and methenamine Neurogenic bladder Clean intermittent catheterization 4-5 times per day - straight catheter no coude - will require self catheterization for the foreseeable future Does have occasional UTI Prior ultrasound with renal cysts on left kidney Procedure - 07/09 TUIP PSA 2020 0.8 Infection protection start vitamin C and methanamine PFSH Medical History DVT (deep venous thrombosis) Hx of meningitis Neurogenic bladder Paraplegia Renal cyst, acquired UTI (urinary tract infection) Surgical History H/O abdominal surgery History of colonoscopy Social History Patient Tobacco Use Status: Former Tobacco user Review of Systems Const Denies chills and Denies fever(s) Card Reports no additional complaints and Denies syncope Resp Denies cough GI Denies abdominal pain and Denies heartburn Reports as per HPI and Denies change in libido Neuro Denies syncope Psych Denies change in libido Endo Denies change in libido Physical Exam Const General: cooperative, healthy appearing, comfortable and no acute distress Orientation/consciousness: patient oriented x3 HEENT Face and sinus: Yes normal facial exam Mouth: moist mucous membranes Neck Neck: Yes normal visual inspection, Yes full ROM and Yes trachea midline Chest Chest palpation & inspection: normal inspection of the chest Resp Effort & Inspection: normal respiratory effort, able to speak in complete sentences and no respiratory distress GI Inspection: Yes normal to inspection Back/Spine/Pelvis Cervical Spine: normal cervical lordosis Thoracic/Lumbar Spine: thoracic and lumbar spine normal to inspection Skin General skin exam: no rashes or lesions noted Neuro General: patient oriented x3, gait normal, tone normal and moves all extremities Extrem General: Yes normal to inspection and Yes capillary refill normal Results AMB Urinalysis, Automated UA Leukoctes 500 Chey/uL Last Edit by Angela Su [facility] on 04/09/23 14:44 UA Nitrite Negative Last Edit by Angela Su [facility] on 04/09/23 14:44 UA Urobilinogen 0.2 mg/dL Last Edit by Angela Su [facility] on 04/09/23 14:44 UA Protein 0 mg/dL Last Edit by Angela Su [facility] on 04/09/23 14:44 UA pH 6.0 Last Edit by Angela Su [facility] on 04/09/23 14:44 UA Blood 0 Yuval/uL Last Edit by Angela Su [facility] on 04/09/23 14:44 UA Specific [place] 1.015 Last Edit by Angela Su [facility] on 04/09/23 14:44 UA Ketone Negative Last Edit by Angela Su [facility] on 04/09/23 14:44 UA Bilirubin 0 mg/dL Last Edit by Angela Su [facility] on 04/09/23 14:44 UA Glucose 0 mg/dL Last Edit by HARIKA Zuñiga on 04/09/23 14:44 Results Reviewed Results Reviewed: Laboratory Last Values Urine pH (Auto) 6.0 04/09/23 14:37 Specific [place] (Auto) 1.015 04/09/23 14:37 Urine Protein (Auto) 0 mg/dL 04/09/23 14:37 Glucose (UA)(Auto) 0 mg/dL 04/09/23 14:37 Urine Ketones (Auto) Negative 04/09/23 14:37 Urine Blood (Auto) 0 Yuval/uL 04/09/23 14:37 Urine Nitrite (Auto) Negative 04/09/23 14:37 Urine Bilirubin (Auto) 0 mg/dL 04/09/23 14:37 Urine Urobilinogen (Auto) 0.2 mg/dL 04/09/23 14:37 Leukocyte Esterase (Auto) 500 Chey/uL 04/09/23 14:37 Assessment & Plan Assessment & Plan (1) Neurogenic bladder: Code(s): N31.9 - Neuromuscular dysfunction of bladder, unspecified (2) Recurrent UTI (urinary tract infection): Code(s): N39.0 - Urinary tract infection, site not specified (3) Prostate stricture: Code(s): 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
== END 2023-04-09 15:00 | disposition home or self-care (01) ==
PROVIDERS: PCP Internal Medicine; Visit Provider Urology
DX: N31.9 Neuromuscular dysfunction of bladder, unspecified (principal); N39.0 Urinary tract infection, site not specified; N42.89 Other specified disorders of prostate
CPT/HCPCS: 99214

== ENCOUNTER → 2023-04-09 13:37 | Outpatient (BNVA) | payer MEDICAID, SELFPAY | PROVIDERS: PCP Internal Medicine; Visit Provider Urology | DX: N31.9 Neuromuscular dysfunction of bladder, unspecified (principal); N39.0 Urinary tract infection, site not specified; N42.89 Other specified disorders of prostate | CPT/HCPCS: 81003; 99212 ==

== ENCOUNTER → 2023-04-13 10:03 | Outpatient (BNVA) | payer MEDICAID, SELFPAY | PROVIDERS: PCP Internal Medicine; Visit Provider Internal Medicine ==

== ENCOUNTER → 2023-04-16 10:31 | Outpatient (BNVA) | payer MEDICAID, SELFPAY | PROVIDERS: PCP Internal Medicine; Visit Provider Internal Medicine | DX: I26.99 Other pulmonary embolism without acute cor pulmonale (principal); Z79.01 Long term (current) use of anticoagulants; Z51.81 Encounter for therapeutic drug level monitoring | CPT/HCPCS: 85610; 99211 ==

== ENCOUNTER 2023-05-11 11:09 | Outpatient (AMB) | payer MEDICAID, SELFPAY ==
--- NOTE | 2023-05-11 11:39 | MHC.OFFVISCO ---
Intake Intake Visit Reasons: Anticoagulation Allergies No Known Allergies Allergy (Mild, Verified 05/11/23 11:36) NOT APPLICABLE Medication List - Last Reconciled 05/11/23 by Maryann Dsouza, RN ascorbic acid (vitamin C) 1 g PO DAILY 90 days baclofen 20 mg PO QID bisacodyl (Dulcolax (bisacodyl)) 10 mg (2 x 5 mg) PO BEDTIME 2 days cefuroxime axetil 250 mg PO BID 10 days clonazepam 0 mg PO lanolin mrffawv-gd-g.pet-ceres (Minerin Creme topical) appl topical BID lidocaine HCl 2% mL topical TID lidocaine HCl 2% mL topical methenamine hippurate 1 g PO DAILY 90 days naloxone 4 mg/actuation 0 sprays intranasal oxycodone-acetaminophen 5-325 mg 1 tab PO Q8H PRN psyllium husk (aspartame) 3 gram/5.8 gram (Reguloid (aspartame)) grams PO DAILY PRN pyridoxine (vitamin B6) (Vitamin B-6) PO varicella-zoster gE vac,2 of 2 (Shingrix gE Antigen Component) IM warfarin 3 mg See Protocol PO DAILY Nursing Note INR 3.5-? out of therapeutic range Medications and supplements reviewed Patient status: no c.o, to acs in power w/c Medications or supplements: no changes in medications Diet: same Denies any signs and symptoms of bleeding or clotting or unusual bruising Bleeding, bruising, clotting discussed Nutritional guidance given: have greens today and tomm Dose: 1.5mg today - then 3mg x 5, 1.5mg x 2 F/U INR Date : 2 weeks?? Patient verbalizing understanding of instructions given. 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
[2023-05-11 11:40] LABS: Prothrombin Time Whole Bld POC 42.4 sec (11.1-13.5); ~PT, ~INR - Anti Coag Clinic 3.5 (0.9-1.1)
== END 2023-05-11 11:47 | disposition home or self-care (01) ==
LOC: HO.ACS 11:09
PROVIDERS: PCP Internal Medicine; Visit Provider Internal Medicine
DX: Z79.01 Long term (current) use of anticoagulants (principal)

== ENCOUNTER → 2023-05-11 11:09 | Outpatient (BNVA) | payer MEDICAID, SELFPAY | PROVIDERS: PCP Internal Medicine; Visit Provider Internal Medicine | DX: I26.99 Other pulmonary embolism without acute cor pulmonale (principal); Z79.01 Long term (current) use of anticoagulants; Z51.81 Encounter for therapeutic drug level monitoring | CPT/HCPCS: 85610; 99211 ==

== ENCOUNTER 2023-05-25 11:26 | Outpatient (AMB) | payer MEDICAID, SELFPAY ==
[2023-05-25 11:39] LABS: Prothrombin Time Whole Bld POC 41.1 sec (11.1-13.5); ~PT, ~INR - Anti Coag Clinic 3.4 (0.9-1.1)
--- NOTE | 2023-05-25 11:43 | MHC.OFFVISCO ---
Intake Intake Visit Reasons: Anticoagulation Allergies No Known Allergies Allergy (Mild, Verified 05/25/23 11:31) NOT APPLICABLE Medication List - Last Reconciled 05/25/23 by Corazon Foreman, RN ascorbic acid (vitamin C) 1 g PO DAILY 90 days baclofen 20 mg PO QID bisacodyl (Dulcolax (bisacodyl)) 10 mg (2 x 5 mg) PO BEDTIME 2 days clonazepam 0 mg PO lanolin evbcnds-kd-l.pet-ceres (Minerin Creme topical) appl topical BID lidocaine HCl 2% mL topical TID lidocaine HCl 2% mL topical methenamine hippurate 1 g PO DAILY 90 days naloxone 4 mg/actuation 0 sprays intranasal oxycodone-acetaminophen 5-325 mg 1 tab PO Q8H PRN psyllium husk (aspartame) 3 gram/5.8 gram (Reguloid (aspartame)) grams PO DAILY PRN pyridoxine (vitamin B6) (Vitamin B-6) PO varicella-zoster gE vac,2 of 2 (Shingrix gE Antigen Component) IM warfarin 3 mg See Protocol PO DAILY Nursing Note To [facility] via motorized WC feeling ok Medications and supplements reviewed, sts in broken Frisian not taking all the medications, ceftriaxome dcd and removed from emar, encouraged to bring in updated list No other changes in health, diet, medications, or supplements Denies any unusual signs and symptoms of bruising, bleeding Denies any new Chest pain, SOB, or clotting INR: 3.4 above therapeutic range Nutritional guidance given: greens today, no reds x 2 days then balance greens and reds in diet Dose: already took warfarin today will decrease weekly dosing to 1.5mg x 3 days (vs 2 days) and 3mg x 4 days (vs 5 days); F/U INR: 2 weeks Patient verbalizes understanding of instructions given with accurate read back/ teach back of dosing Anti-Coag Initial Assessment Social Hx Patient Tobacco Use Status: Former Tobacco user Coding Level of Care Code Est Patient Level 1 Diagnoses Current use of anticoagulant therapy Z79.01 Time Spent (min) 15 Assessment & Plan Assessment & Plan (1) Current use of anticoagulant therapy: Code(s): Z79.01 - nursing home (current) use of anticoagulants Category: Medical
== END 2023-05-25 12:01 | disposition home or self-care (01) ==
LOC: HO.ACS 11:26
PROVIDERS: PCP Internal Medicine; Visit Provider Internal Medicine
DX: Z79.01 Long term (current) use of anticoagulants (principal)

== ENCOUNTER → 2023-05-25 11:26 | Outpatient (BNVA) | payer MEDICAID, SELFPAY | PROVIDERS: PCP Internal Medicine; Visit Provider Internal Medicine | DX: I26.99 Other pulmonary embolism without acute cor pulmonale (principal); Z79.01 Long term (current) use of anticoagulants; Z51.81 Encounter for therapeutic drug level monitoring | CPT/HCPCS: 85610; 99211 ==

== ENCOUNTER 2023-06-08 11:16 | Outpatient (AMB) | payer MEDICAID, SELFPAY ==
[2023-06-08 11:36] LABS: Prothrombin Time Whole Bld POC 33.9 sec (11.1-13.5); ~PT, ~INR - Anti Coag Clinic 2.8 (0.9-1.1)
--- NOTE | 2023-06-08 11:42 | MHC.OFFVISCO ---
Intake Intake Visit Reasons: Anticoagulation Allergies No Known Allergies Allergy (Mild, Verified 06/08/23 11:29) NOT APPLICABLE Medication List - Last Reconciled 06/08/23 by Janell Suarez RN ascorbic acid (vitamin C) (Vitamin C) 1,000 mg PO DAILY baclofen 20 mg PO QID bisacodyl (Dulcolax (bisacodyl)) 10 mg (2 x 5 mg) PO BEDTIME 2 days clonazepam 0 mg PO lanolin tsmrhzv-om-t.pet-ceres (Minerin Creme topical) appl topical BID lidocaine HCl 2% mL topical TID lidocaine HCl 2% mL topical methenamine hippurate 1 g PO DAILY 90 days naloxone 4 mg/actuation 0 sprays intranasal oxycodone-acetaminophen 5-325 mg 1 tab PO Q8H PRN psyllium husk (aspartame) 3 gram/5.8 gram (Reguloid (aspartame)) grams PO DAILY PRN pyridoxine (vitamin B6) (Vitamin B-6) PO varicella-zoster gE vac,2 of 2 (Shingrix gE Antigen Component) IM warfarin 3 mg See Protocol PO DAILY Nursing Note INR: 2.8 in therapeutic range Medications and supplements reviewed No changes in health, diet, medications, or supplements, Denies any signs and symptoms of bleeding or bruising or clotting. 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
== END 2023-06-08 11:45 | disposition home or self-care (01) ==
LOC: HO.ACS 11:16
PROVIDERS: PCP Internal Medicine; Visit Provider Internal Medicine
DX: Z79.01 Long term (current) use of anticoagulants (principal)

== ENCOUNTER → 2023-06-08 11:16 | Outpatient (BNVA) | payer MEDICAID, SELFPAY | PROVIDERS: PCP Internal Medicine; Visit Provider Internal Medicine | DX: I26.99 Other pulmonary embolism without acute cor pulmonale (principal); Z79.01 Long term (current) use of anticoagulants; Z51.81 Encounter for therapeutic drug level monitoring | CPT/HCPCS: 85610; 99211 ==

== ENCOUNTER 2023-06-29 11:06 | Outpatient (AMB) | payer MEDICAID, SELFPAY ==
[2023-06-29 11:39] LABS: Prothrombin Time Whole Bld POC 32.1 sec (11.1-13.5); ~PT, ~INR - Anti Coag Clinic 2.7 (0.9-1.1)
--- NOTE | 2023-06-29 11:42 | MHC.OFFVISCO ---
Intake Intake Visit Reasons: Anticoagulation Allergies No Known Allergies Allergy (Mild, Verified 06/29/23 11:34) NOT APPLICABLE Medication List - Last Reconciled 06/29/23 by Corazon Foreman RN ascorbic acid (vitamin C) (Vitamin C) 1,000 mg PO DAILY baclofen 20 mg PO QID bisacodyl (Dulcolax (bisacodyl)) 10 mg (2 x 5 mg) PO BEDTIME 2 days clonazepam 0 mg PO lanolin gnbmbgy-bb-r.pet-ceres (Minerin Creme topical) appl topical BID lidocaine HCl 2% mL topical TID lidocaine HCl 2% mL topical methenamine hippurate 1 g PO DAILY 90 days naloxone 4 mg/actuation 0 sprays intranasal oxycodone-acetaminophen 5-325 mg 1 tab PO Q8H PRN psyllium husk (aspartame) 3 gram/5.8 gram (Reguloid (aspartame)) grams PO DAILY PRN pyridoxine (vitamin B6) (Vitamin B-6) PO varicella-zoster gE vac,2 of 2 (Shingrix gE Antigen Component) IM warfarin 3 mg See Protocol PO DAILY Nursing Note To [facility] via motorized WC feeling well Medications and supplements reviewed No changes in health, diet, medications, or supplements Denies any unusual signs and symptoms of bruising, bleeding Denies any new Chest pain, SOB, or clotting INR: 2.7 in therapeutic range Nutritional guidance given: balance greens and reds in diet Dose: continue usual dosing; 1.5mg x 3 days and 3mg x 4 days F/U INR: 4 weeks Patient verbalizes understanding of instructions given with accurate read back/ teach back of dosing Anti-Coag Initial Assessment Social Hx Patient Tobacco Use Status: Former Tobacco user Coding Level of Care Code Est Patient Level 1 Diagnoses Current use of anticoagulant therapy Z79.01 Time Spent (min) 15 Assessment & Plan Assessment & Plan (1) Current use of anticoagulant therapy: Code(s): 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
== END 2023-06-29 11:46 | disposition home or self-care (01) ==
LOC: HO.ACS 11:06
PROVIDERS: PCP Internal Medicine; Visit Provider Internal Medicine
DX: Z79.01 Long term (current) use of anticoagulants (principal)

== ENCOUNTER → 2023-06-29 11:06 | Outpatient (BNVA) | payer MEDICAID, SELFPAY | PROVIDERS: PCP Internal Medicine; Visit Provider Internal Medicine | DX: I26.99 Other pulmonary embolism without acute cor pulmonale (principal); Z79.01 Long term (current) use of anticoagulants; Z51.81 Encounter for therapeutic drug level monitoring | CPT/HCPCS: 85610; 99211 ==

== ENCOUNTER → 2023-07-27 11:10 | Outpatient (BNVA) | payer MEDICAID, SELFPAY | PROVIDERS: PCP Internal Medicine; Visit Provider Internal Medicine | DX: I26.99 Other pulmonary embolism without acute cor pulmonale (principal); Z79.01 Long term (current) use of anticoagulants; Z51.81 Encounter for therapeutic drug level monitoring | CPT/HCPCS: 85610; 99211 ==

== ENCOUNTER 2023-08-13 18:09 | Outpatient (REF) | payer MEDICAID, SELFPAY ==
[2023-08-13 18:22] LABS: Appearance Urine Cloudy; Color Urine Yellow; Glucose Urine UA Negative (Negative); Leukocyte Esterase Urine Moderate (2+) (Negative); Nitrite Urine Negative (Negative); PH 6.5 (5.0-9.0); UMIC TRIGGER UA YES; Urine Blood Negative (Negative); Urine Ketones Negative (Negative); Urine Protein Negative (Neg-Trace)
[2023-08-13 18:24] LABS: Bacteria Urine 4+ (None Seen); Hyaline Casts Urine 0-2 /LPF (0-2); Squamous Epithelial Cell Urine 0-2 /HPF (0-2); WBC Urine >50 /HPF (0-5)
== END 2023-08-13 18:10 | disposition home or self-care (01) ==
LOC: HO.LNP 18:09
PROVIDERS: Visit Provider Student in an Organized Health Care Education/Training Program
DX: N30.00 Acute cystitis without hematuria (principal)
CPT/HCPCS: 81001; 87086; 87088; 87186

== ENCOUNTER → 2023-08-27 09:56 | Outpatient (BNVA) | payer MEDICAID, SELFPAY | PROVIDERS: PCP Internal Medicine; Visit Provider Internal Medicine ==

== ENCOUNTER 2023-08-30 10:47 | Outpatient (AMB) | payer MEDICAID, SELFPAY ==
--- NOTE | 2023-08-30 11:21 | MHC.OFFVISCO ---
Intake Intake Visit Reasons: Anticoagulation Allergies No Known Allergies Allergy (Mild, Verified 07/27/23 11:25) NOT APPLICABLE Nursing Note INR 1.5? out of therapeutic range Medications and supplements reviewed Patient status: PT WAS ON ANTBIOTICS FOR UTI , HE HAD HEMATURIA AND STOPPED HIS WARFARIN FOR 3 DAYS WHILE ON THE ANTBIOTIC, HE STATES HIS URINE IS CLEARER AND DRINKING MORE WATER Medications or supplements: NO OTHER CHANGES Diet: GOOD Denies any signs and symptoms of bleeding or clotting or unusual bruising Bleeding, bruising, clotting discussed Nutritional guidance given: AVOID GREENS X 3 DAYS AND HAVE REDS TODAY Dose: INCREASE TODAY'S DOSE TO 3MG ONLY TODAY DUE TO PREVIOUS HEMATURIA THEN RESUME USUAL DOSE 3MG X 4 DAYS/ 1.5MG X MWF F/U INR Date: 1 WEEK PT REFUSED SOONER APPT PT ADVISED TO GO TO THE ER OR CALL MD IF HE HAS ANY CLOT SIGNS AND SYMPTOMS, PT VERBALIZED HE WOULD Patient verbalizing understanding of instructions given. T/C TO PCP OFFICE - SPOKE WITH NURSE RAMACHANDRAN WITH PT STATUS AND PLAN OF CARE TO CONVEY TO PCP Anti-Coag Initial Assessment Social Hx Patient Tobacco Use Status: Former Tobacco user Coding Level of Care Code Est Patient Level 1 Diagnoses Current use of anticoagulant therapy Z79.01 Results AMB INR Fingerstick AMB INR Fingerstick 1.5 Last Edit by Janell Suarez RN on 08/30/23 11:14 NO INTERFACING CAPABILITES TODAY MANUAL ENTRY OF RESULTS ON GOING Assessment & Plan Assessment & Plan (1) Current use of anticoagulant therapy: Code(s): Z79.01 - [facility] (current) use of anticoagulants Category: Medical
[2023-08-30 11:47] LABS: Prothrombin Time Whole Bld POC 17.7 sec (11.1-13.5); ~PT, ~INR - Anti Coag Clinic 1.5 (0.9-1.1)
== END 2023-08-30 11:30 | disposition home or self-care (01) ==
LOC: HO.ACS 10:47
PROVIDERS: PCP Internal Medicine; Visit Provider Internal Medicine
DX: Z79.01 Long term (current) use of anticoagulants (principal)

== ENCOUNTER → 2023-08-30 10:47 | Outpatient (BNVA) | payer MEDICAID, SELFPAY | PROVIDERS: PCP Internal Medicine; Visit Provider Internal Medicine | DX: I26.99 Other pulmonary embolism without acute cor pulmonale (principal); Z79.01 Long term (current) use of anticoagulants; Z51.81 Encounter for therapeutic drug level monitoring | CPT/HCPCS: 85610; 99211 ==

== ENCOUNTER 2023-09-06 11:00 | Outpatient (AMB) | payer MEDICAID, SELFPAY ==
[2023-09-06 11:35] LABS: Prothrombin Time Whole Bld POC 37.7 sec (11.1-13.5); ~PT, ~INR - Anti Coag Clinic 3.1 (0.9-1.1)
--- NOTE | 2023-09-06 11:46 | MHC.OFFVISCO ---
Intake Intake Visit Reasons: Anticoagulation Allergies No Known Allergies Allergy (Mild, Verified 09/06/23 11:30) NOT APPLICABLE Medication List - Last Reconciled 09/06/23 by Janell Suarez, RN ascorbic acid (vitamin C) (Vitamin C) 1,000 mg PO DAILY baclofen 20 mg PO QID bisacodyl (Dulcolax (bisacodyl)) 10 mg (2 x 5 mg) PO BEDTIME 2 days clonazepam 0 mg PO lanolin zjargvd-ag-z.pet-ceres (Minerin Creme topical) appl topical BID lidocaine HCl 2% mL topical TID lidocaine HCl 2% mL topical methenamine hippurate 1 g PO DAILY 90 days naloxone 4 mg/actuation 0 sprays intranasal oxycodone-acetaminophen 5-325 mg 1 tab PO Q8H PRN psyllium husk (aspartame) 3 gram/5.8 gram (Reguloid (aspartame)) grams PO DAILY PRN pyridoxine (vitamin B6) (Vitamin B-6) PO varicella-zoster gE vac,2 of 2 (Shingrix gE Antigen Component) IM warfarin 3 mg See Protocol PO DAILY Nursing Note INR: 3.1 in therapeutic range Medications and supplements reviewed pt likes pomegranit for prostate health - it was explained it coulld raise his INR and he stated he will ear broccoli with it Denies any signs and symptoms of bleeding or bruising or clotting. Bleeding, bruising, clotting discussed Nutritional guidance given Dose: 1.5mg x 3 days 3mg x 4 days F/U INR: 3 weeks Patient verbalizes understanding of instructions given Anti-Coag Initial Assessment Social Hx Patient Tobacco Use Status: Former Tobacco user Coding Level of Care Code Est Patient Level 1
== END 2023-09-06 11:48 | disposition home or self-care (01) ==
LOC: HO.ACS 11:00
PROVIDERS: PCP Internal Medicine; Visit Provider Internal Medicine
DX: Z79.01 Long term (current) use of anticoagulants (principal)

== ENCOUNTER → 2023-09-06 11:00 | Outpatient (BNVA) | payer MEDICAID, SELFPAY | PROVIDERS: PCP Internal Medicine; Visit Provider Internal Medicine | DX: I26.99 Other pulmonary embolism without acute cor pulmonale (principal); Z79.01 Long term (current) use of anticoagulants; Z51.81 Encounter for therapeutic drug level monitoring | CPT/HCPCS: 85610; 99211 ==

== ENCOUNTER 2023-09-27 11:11 | Outpatient (AMB) | payer MEDICAID, SELFPAY ==
[2023-09-27 11:43] LABS: Prothrombin Time Whole Bld POC 36.1 sec (11.1-13.5)
--- NOTE | 2023-09-27 11:54 | MHC.OFFVISCO ---
Intake Intake Visit Reasons: Anticoagulation Allergies No Known Allergies Allergy (Mild, Verified 09/27/23 11:37) NOT APPLICABLE Medication List - Last Reconciled 09/27/23 by Janell Suarez RN ascorbic acid (vitamin C) (Vitamin C) 1,000 mg PO DAILY baclofen 20 mg PO QID bisacodyl (Dulcolax (bisacodyl)) 10 mg (2 x 5 mg) PO BEDTIME 2 days clonazepam 0 mg PO lanolin ljkfvjm-gz-w.pet-ceres (Minerin Creme topical) appl topical BID lidocaine HCl 2% mL topical TID lidocaine HCl 2% mL topical methenamine hippurate 1 g PO DAILY 90 days naloxone 4 mg/actuation 0 sprays intranasal oxycodone-acetaminophen 5-325 mg 1 tab PO Q8H PRN psyllium husk (aspartame) 3 gram/5.8 gram (Reguloid (aspartame)) grams PO DAILY PRN pyridoxine (vitamin B6) (Vitamin B-6) PO varicella-zoster gE vac,2 of 2 (Shingrix gE Antigen Component) IM warfarin 3 mg See Protocol PO DAILY Nursing Note INR: 3.0 in therapeutic range Medications and supplements reviewed to have dental implants in the future, Denies any signs and symptoms of bleeding or bruising or clotting. Bleeding, bruising, clotting discussed Nutritional guidance given - EAT GREENS WEEKLY Dose: KEEP SAME DOSE- 3MG X 4 DAyS/ 1.5MG X 3 DAYS F/U INR: 3 weeks Patient verbalizes understanding of instructions given Anti-Coag Initial Assessment Social Hx Patient Tobacco Use Status: Former Tobacco user Coding Level of Care Code Est Patient Level 1 Diagnoses Current use of anticoagulant therapy Z79.01 Assessment & Plan Assessment & Plan (1) Current use of anticoagulant therapy: Code(s): Z79.01 - [facility] (current) use of anticoagulants Category: Medical
== END 2023-09-27 11:58 | disposition home or self-care (01) ==
LOC: HO.ACS 11:11
PROVIDERS: PCP Internal Medicine; Visit Provider Internal Medicine
DX: Z79.01 Long term (current) use of anticoagulants (principal)

== ENCOUNTER → 2023-09-27 11:11 | Outpatient (BNVA) | payer MEDICAID, SELFPAY | PROVIDERS: PCP Internal Medicine; Visit Provider Internal Medicine | DX: I26.99 Other pulmonary embolism without acute cor pulmonale (principal); Z79.01 Long term (current) use of anticoagulants; Z51.81 Encounter for therapeutic drug level monitoring | CPT/HCPCS: 85610; 99211 ==

== ENCOUNTER 2023-10-07 10:44 | Outpatient (REF) | payer MEDICAID, SELFPAY ==
[2023-10-07 12:37] LABS: Cholesterol 166 mg/dL (<200); HDL Cholesterol 39 mg/dL (>40); LDL Cholesterol Calculated 112 mg/dL (<100); Triglycerides 75 mg/dL (<150)
[2023-10-07 12:42] LABS: Syphilis Screen Nonreactive (Nonreactive)
[2023-10-07 12:45] LABS: Reflex LDLD? No
[2023-10-07 12:46] LABS: HBS Num1 46.11 mIU/mL (0-7.99); HBc Num1 6.44 S/CO (0.00-0.79); HBsAGNum1 0.29 S/CO (0.00-0.99); HIV AB/AG Nonreactive (Nonreactive); HIV Num 1 0.05 S/CO (0.00-0.99); Hepatitis A Antibody IgM 0.12 Index (0-0.79); Hepatitis B Surface Antigen Negative (Negative); ~Hepatitis A Antibody IgM Nonreactive (Nonreactive); ~Hepatitis B Surface Antibody REACTIVE (Nonreactive); ~Hepatitis C Antibody Nonreactive (Nonreactive)
[2023-10-07 12:57] LABS: TSH reflex Free T4 1.75 uIU/mL (0.32-4.0); Vitamin D 25-OH Total 22.7 ng/mL (>30)
[2023-10-07 13:42] LABS: HBc Num2 6.69 S/CO; HBc Num3 6.54 S/CO; Hepatitis B Core Antibody Reactive (Nonreactive)
[2023-10-08 09:49] LABS: Mumps Virus IgG Antibody >300.00 AU/mL; Rubeola IgG (Measles) >300.00 AU/mL
[2023-10-10 15:48] LABS: TS Negative Control Passed; TS Panel A 0; TS Panel B 0; TS Positive Control Passed; TSpotTB Negative (Negative)
== END 2023-10-07 10:45 | disposition home or self-care (01) ==
LOC: HO.HHCL 10:44
PROVIDERS: Visit Provider Internal Medicine
DX: Z00.00 Encounter for general adult medical examination without abnormal findings (principal); Z97.8 Presence of other specified devices
CPT/HCPCS: 36415; 80061; 82306; 84443; 86481; 86704; 86706; 86709; 86735; 86762; 86765; 86780; 86803; 87340; 87389

== ENCOUNTER 2023-10-08 10:18 | Outpatient (AMB) | payer MEDICARE, MEDICAID, SELFPAY ==
--- NOTE | 2023-10-08 10:57 | MHC.OFFVIS ---
Intake Intake Visit Reasons: 6m follow up Intake Note: Patient is Present for Follow Up Urology Medication: Methenamine, Vitamin B6 Antibiotic Allergies: None Blood Thinners: Warfarin Allergies No Known Allergies Allergy (Mild, Verified 09/27/23 11:37) NOT APPLICABLE HPI HPI Comments History of Present Illness Details Erasmo is a very pleasant male. He is a patient of . He is seen for the following urologic conditions - neurogenic bladder - requires clean intermittent catheterization Malaysian translation provided by qualified certified medical technician Continue with suppression ascorbic acid and methenamine Has catheters Neurogenic bladder Clean intermittent catheterization 4-5 times per day - straight catheter no coude - will require self catheterization for the foreseeable future Does have occasional UTI Prior ultrasound with renal cysts on left kidney Procedure - 07/09 TUIP PSA 2020 0.8 Infection protection start vitamin C and methanamine PFSH Medical History Paraplegia DVT (deep venous thrombosis) UTI (urinary tract infection) Hx of meningitis Renal cyst, acquired Neurogenic bladder Surgical History History of colonoscopy H/O abdominal surgery Social History Patient Tobacco Use Status: Former Tobacco user Review of Systems Const Denies chills and Denies fever(s) Card Reports no additional complaints and Denies syncope Resp Denies cough GI Denies abdominal pain and Denies heartburn Reports as per HPI and Denies change in libido Neuro Denies syncope Psych Denies change in libido Endo Denies change in libido Physical Exam Const General: cooperative, healthy appearing, comfortable and no acute distress Orientation/consciousness: patient oriented x3 HEENT Face and sinus: Yes normal facial exam Mouth: moist mucous membranes Neck Neck: Yes normal visual inspection, Yes full ROM and Yes trachea midline Chest Chest palpation & inspection: normal inspection of the chest Resp Effort & Inspection: normal respiratory effort, able to speak in complete sentences and no respiratory distress GI Inspection: Yes normal to inspection Back/Spine/Pelvis Cervical Spine: normal cervical lordosis Thoracic/Lumbar Spine: thoracic and lumbar spine normal to inspection Skin General skin exam: no rashes or lesions noted Neuro General: patient oriented x3, gait normal, tone normal and moves all extremities Extrem General: Yes normal to inspection and Yes capillary refill normal Assessment & Plan Assessment & Plan (1) Neurogenic bladder: Code(s): N31.9 - Neuromuscular dysfunction of bladder, unspecified (2) Recurrent UTI (urinary tract infection): Code(s): N39.0 - Urinary tract infection, site not specified Plan Six month follow-up Patient Instructions: Imaging studies, laboratory and physical exam results were discussed and reviewed in detail. No major barriers to patient understanding were identified. An opportunity to ask questions regarding the treatment plan was provided. All questions were answered. The patient expressed understanding and agreement with the above treatment plan. The patient is aware they should contact our office by phone for worsening of their current condition or the appearance of new urologic symptoms. Compliance is encouraged with any medications and followup testing that is ordered. It is a privilege to participate in the urologic care of your patient. If you have any questions or concerns regarding treatment for the above conditions, or other urologic issues, please do not hesitate to contact me. The office telephone contact is [phone]. This note is constructed using voice recognition software. While every effort has been made to ensure accuracy lottery sales clerk errors may have been included. Yours sincerely, Dr Oh Rodriguez MD, [facility] - Urology Providers of Expert, Compassionate Care for the Genitourinary System Coding Level of Care Code Est Pt Level 3 (23661) Diagnoses Neurogenic bladder N31.9 Recurrent UTI (urinary tract infection) N39.0
== END 2023-10-08 11:39 | disposition home or self-care (01) ==
PROVIDERS: PCP Internal Medicine; Referring Provider Internal Medicine; Visit Provider Urology
DX: N31.9 Neuromuscular dysfunction of bladder, unspecified (principal); N39.0 Urinary tract infection, site not specified
CPT/HCPCS: 99213

== ENCOUNTER → 2023-10-08 10:18 | Outpatient (BNVA) | payer MEDICAID, SELFPAY | PROVIDERS: PCP Internal Medicine; Visit Provider Urology | DX: N31.9 Neuromuscular dysfunction of bladder, unspecified (principal); N39.0 Urinary tract infection, site not specified | CPT/HCPCS: 99212 ==

== ENCOUNTER 2023-11-08 11:12 | Outpatient (AMB) | payer MEDICARE, SELFPAY ==
[2023-11-08 11:31] LABS: Prothrombin Time Whole Bld POC 34.9 sec (11.1-13.5); ~PT, ~INR - Anti Coag Clinic 2.9 (0.9-1.1)
--- NOTE | 2023-11-08 11:34 | MHC.OFFVISCO ---
Intake Intake Visit Reasons: Anticoagulation Allergies No Known Allergies Allergy (Mild, Verified 11/08/23 11:24) NOT APPLICABLE Medication List - Last Reconciled 11/08/23 by Corazon Foreman RN ascorbic acid (vitamin C) (Vitamin C) 1,000 mg PO DAILY baclofen 20 mg PO QID bisacodyl (Dulcolax (bisacodyl)) 10 mg (2 x 5 mg) PO BEDTIME 2 days clonazepam 0 mg PO lanolin xgmqexc-ra-s.pet-ceres (Minerin Creme topical) appl topical BID lidocaine HCl 2% mL topical TID lidocaine HCl 2% mL topical methenamine hippurate 1 g PO DAILY 90 days naloxone 4 mg/actuation 0 sprays intranasal oxycodone-acetaminophen 5-325 mg 1 tab PO Q8H PRN psyllium husk (aspartame) 3 gram/5.8 gram (Reguloid (aspartame)) grams PO DAILY PRN pyridoxine (vitamin B6) (Vitamin B-6) PO varicella-zoster gE vac,2 of 2 (Shingrix gE Antigen Component) IM warfarin 3 mg See Protocol PO DAILY Nursing Note To ACS via motorized WC feeling well, pt sched 1/3 NS Medications and supplements reviewed No changes in health, diet, medications, or supplements Denies any unusual signs and symptoms of bruising, bleeding Denies any new Chest pain, SOB, or clotting INR: 2.9 in therapeutic range Nutritional guidance given: greens today then balance greens and reds in diet, be consistent Dose: continue usual dosing;1.5mg x 3 days and 3mg x 4 days F/U INR: 3 weeks Patient verbalizes understanding of instructions given with accurate read back/ teach back of dosing Anti-Coag Initial Assessment Social Hx Patient Tobacco Use Status: Former Tobacco user Questionnaires HAS-BLED Does the patient had uncontrolled Hypertension?: No Does the patient have renal disease?: No Does the patient have liver disease?: No Does the patient have a history of stroke?: No Has the patient had major bleeding or predisposition to bleeding?: No Does the patient have labile INRs?: No Is the patient over 65 years of age?: Yes Is the patient on medications that gives them a predisposition to bleeding?: Yes Does the patient use alcohol?: No HAS-BLED Score: 2 CHADSVASC Age: <65 Gender: Male Does the patient have a history of CHF?: No Does the patient have a history of Hypertension?: No Does the patient have a history of Stroke/TIA/Thromboembolism?: Yes Does the patient have a history of Vascular Disease (prior RI, PAD or aortic plaque)?: No Does the patient have a history of Diabetes?: No CHADS VACS Score: 2 Paulo Prediction Score Rsk VTE Active Cancer: No Previous VTE, excluding superficial vein thrombosis: Yes Reduced mobility: Yes Already known Thrombophilic Condition: Yes With-in last month Trauma and/or Surgery: No Elderly 70 year or older: No Heart and/or Respiratory Failure: No Acute Myocardial infarction and/or Ischemic Stroke: No Acute Infection and/or Rheumatologic Disorder: No Obesity (BMI 30 or greater): No Ongoing Hormonal Treatment: No Score: 9 Paulo Score less than 4; Low Risk of VTE Paulo Score 4 or greater; High Risk of VTE Coding Level of Care Code Est Patient Level 1 Diagnoses Current use of anticoagulant therapy Z79.01 Time Spent (min) 15 Assessment & Plan Assessment & Plan (1) Current use of anticoagulant therapy: Code(s): 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
== END 2023-11-08 12:02 | disposition home or self-care (01) ==
LOC: HO.ACS 11:12
PROVIDERS: PCP Internal Medicine; Visit Provider Internal Medicine
DX: Z79.01 Long term (current) use of anticoagulants (principal)

== ENCOUNTER → 2023-11-08 11:12 | Outpatient (BNVA) | payer MEDICARE, SELFPAY | PROVIDERS: PCP Internal Medicine; Visit Provider Internal Medicine | DX: I26.99 Other pulmonary embolism without acute cor pulmonale (principal); Z79.01 Long term (current) use of anticoagulants; Z51.81 Encounter for therapeutic drug level monitoring | CPT/HCPCS: 85610; 99211 ==

== ENCOUNTER 2023-11-14 10:46 | Emergency (ER) | payer MEDICARE, SELFPAY ==
--- NOTE | ~2023-11-14 | XR_ITS ---
EXAMINATION: XR CHEST CLINICAL INFORMATION: Chest pain. COMPARISON: Chest radiograph 07/09/2014. TECHNIQUE: Frontal view of the chest was obtained. FINDINGS: Normal appearance of the cardiomediastinal silhouette. No focal airspace opacities, pleural effusion or pneumothorax. No acute osseous findings. XR/XR chest 1V IMPRESSION: No acute cardiopulmonary findings.
[2023-11-14 11:19] VITALS: BP 103/54; PULSE 73; RESP 18; TEMP 37.1; O2SAT 96; BMI 24.8
--- NOTE | 2023-11-14 11:28 | ECG_ITS ---
Test Reason : SOB Blood Pressure : / mmHG Vent. Rate : 066 BPM Atrial Rate : 066 BPM P-R Int : 128 ms QRS Dur : 080 ms QT Int : 400 ms P-R-T Axes : 044 045 059 degrees QTc Int : 419 ms Normal sinus rhythm Normal ECG When compared with ECG of 07-AUG-2019 17:49, No significant change was found Referred By: Juan Carlos Marcano Electronically Signed By:MICHELLE SIEGEL MD
--- NOTE | 2023-11-14 11:31 | ED_ITS ---
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 He also endorses subjective fevers and chills at home. He denies any headaches, dizziness, chest pain, shortness of breath, abdominal pain, nausea, vomiting or diarrhea. MD complaint: UTI Onset (ago): day(s) Radiation: non-radiation Quality: aching Relieving factors: none Exacerbating factors: none Associated symptoms: denies other symptoms Treatments prior to arrival: none Related Data Home Medications Medication Instructions Recorded Confirmed baclofen 20 mg tablet 20 mg PO QID 03/05/21 11/08/23 pyridoxine (vitamin B6) [Vitamin PO 03/05/21 11/08/23 B-6] varicella-zoster gE vac,2 of 2 50 IM 04/04/21 11/08/23 mcg IM suspension (Shingrix gE Antigen Component) clonazepam 1 mg tablet 0 mg PO 08/08/21 11/08/23 psyllium husk (aspartame) 3 g PO DAILY PRN constipation 08/08/21 11/08/23 gram/5.8 gram oral powder (Reguloid (aspartame)) lanolin alcohols-mineral appl topical BID 08/18/21 11/08/23 oil-w.petrolatum-ceresin topical cream (Minerin Creme topical) oxycodone-acetaminophen 5 mg-325 1 tab PO Q8H PRN pain 08/18/21 11/08/23 mg tablet lidocaine HCl 2 % mucosal jelly ml topical TID 03/10/22 11/08/23 naloxone 4 mg/actuation nasal spray 0 spray intranasal 11/30/22 11/08/23 lidocaine HCl 2 % mucosal jelly in ml topical 04/13/23 11/08/23 applicator ascorbic acid (vitamin C) 500 mg 1,000 mg PO DAILY 06/08/23 11/08/23 tablet (Vitamin C) Previous Rx's Medication Instructions Recorded warfarin 3 mg tablet 3 mg PO DAILY #90 tabs 08/08/20 bisacodyl 5 mg tablet,delayed 10 mg (2 x 5 mg) PO BEDTIME 2 days 08/18/21 release (Dulcolax (bisacodyl)) #4 tabs methenamine hippurate 1 gram tablet 1 g PO DAILY 90 days #90 tabs 07/19/23 cefuroxime axetil 500 mg tablet 500 mg PO BID 7 days #13 tabs 11/14/23 Allergies Allergy/AdvReac Type Severity Reaction Status Date / Time No Known Allergies Allergy Mild NOT Verified 11/14/23 11:28 APPLICABLE Review of Systems 2 Review of Systems: Yes all other systems are reviewed and are negative Constitutional: Constitutional: Reports as per [facility] Past Medical History Attestation statement: The following information was validated with the patient. Medical History Paraplegia DVT (deep venous thrombosis) UTI (urinary tract infection) Hx of meningitis Renal cyst, acquired Neurogenic bladder Surgical History History of colonoscopy H/O abdominal surgery Social History Social History Patient Tobacco Use Status: Former Tobacco user Advance Directives: No Advance Directives Information Provided: Yes Physical Exam ED Vital Signs: Vital Signs - 24 hr 11/14/23 11:19 11/14/23 12:56 11/14/23 13:27 Temperature 98.7 F 97.7 F Pulse Rate 73 60 61 Respiratory Rate 18 16 16 Blood Pressure 103/54 L 110/64 128/66 Pulse Oximetry 96 97 98 Oxygen Delivery Method Room Air Room Air Room Air BMI result Body Mass Index 24.8 Const General: cooperative, comfortable and no acute distress Orientation/consciousness: patient oriented x3 Limitations: no limitations HENMT Head: Yes normal to inspection, Yes normocephalic and Yes atraumatic Ears: hearing grossly normal bilaterally General nose exam: Normal external nose present Face and sinus: Yes normal facial exam Mouth: Normal oral and palatal mucosa present, oropharynx normal and moist mucous membranes Throat: Yes posterior oropharynx normal Eyes General: appearance normal, both eyes and all related structures Eyelids: Yes eyelids normal Conjunctivae: conjunctivae normal Sclerae: sclerae normal Pupils: Equal, round and reactive pupils present EOM: EOMs intact bilaterally Neck Neck: Yes normal visual inspection, Yes full ROM and Yes no lymphadenopathy Lymphatic: no lymphadenopathy noted Chest Chest palpation & inspection: normal inspection of the chest Resp Effort & Inspection: normal respiratory effort and able to speak in complete sentences Auscultation: clear to auscultation bilaterally, no crackles, no rales, no rhonchi and no wheezes Cardio Rate: regular rate Rhythm: regular rhythm Heart sounds: S1 normal heart sound present and S2 normal heart sound present GI Other: Abdomen is soft, with mild tenderness palpation in the suprapubic region, no rebound or guarding. Normoactive bowel sounds present in all 4 quadrants, baclofen pump noted to the right lower abdomen. Inspection: Yes normal to inspection Skin General skin exam: no rashes or lesions noted Trauma: no lacerations or abrasions Wounds: no wounds Neuro General: patient oriented x3 and moves all extremities Cranial nerves: Yes Equal, round and reactive pupils present Extrem General: Yes normal to inspection Right upper extremity: normal to inspection Left upper extremity: normal to inspection Right lower extremity: normal to inspection Left lower extremity: normal to inspection Course Course Course Narrative: RME: 63 yold male presents to the ED for left flank pain, lower abdominal pain, epigastric pain, SOB, nausea. rest of exam to be done in the ED. 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 On arrival, vital signs within normal limits, patient is nontoxic appearing, afebrile. Patient has had foul-smelling urine, and suprapubic pain in urgency times last 3 days. He states that he often times gets urinary tract infections due to catheterization. Patient has a soft abdomen, which is mildly tender to palpation in the suprapubic region, no rebound or guarding. Patient has no CVA tenderness on exam. Urinalysis revealing moderate leuk esterases, 11-20 rbc's, with trace bacteria seen. Patient without any flank tenderness, less likely nephrolithiasis or pyelonephritis at this time. Unlikely appendicitis, constipation, bowel obstruction, mesenteric ischemia. A chest x-ray as well as COVID and flu swabs were obtained as patient mentioned he had subjective fevers and chills. He has no shortness of breath or chest pain at this time. Further workup warranted as patient only reporting suprapubic pain as well as urinary frequency urgency and pain.[id number] Given urine findings, will treat for urinary tract infection, patient with recurrent UTIs, previous culture showed E coli sensitive to cefuroxime, will discharge on cefuroxime, 1st dose given p.o. in department prior to departure. Patient given return precautions. Patient understands and agrees with plan. Patient stable for discharge. Differential Diagnosis Differential Diagnoses: The differential diagnosis associated with the presentation includes See above Admission/Observation Consideration of admission/observation: Escalation of care including admission/observation considered Lab Data MDM Lab Attestation statement: I reviewed the patient's lab results. No leukocytosis, stable H&H, chemistry within normal limits, urine with moderate leuk esterases, and wbc's, trace bacteria seen. Consistent with UTI 11/14/23 11:54 11/14/23 11:54 Labs: Lab Results 11/14/23 11/14/23 11/14/23 Range/Units 11:51 11:54 13:49 WBC 5.4 (4.8-10.8) X10*3/uL RBC 4.93 (4.60-5.80) X10*6/uL Hgb 13.8 L (14.0-18.0) g/dl Hct 42.4 (42.0-52.0) % MCV 86.0 (80.0-98.0) fL MCH 28.0 (27.0-33.0) pg MCHC 32.5 (31.0-36.0) g/dl RDW 13.2 (11.0-16.0) % Plt Count 187 (160-400) X10*3/uL MPV 9.2 L (9.4-12.4) fL Immature Gran % (Auto) 0.2 (0.0-0.4) % Neut % (Auto) 67.5 (45-73) % Lymph % (Auto) 22.0 (20-40) % [place] % (Auto) 9.5 (2-11) % Eos % (Auto) 0.6 (0-4) % Baso % (Auto) 0.2 (0-2) % Lymph # (Auto) 1.2 (1.2-4.9) X10*3/uL [place] # (Auto) 0.5 (0.1-1.2) X10*3/uL Eos # (Auto) 0.0 (0.0-0.4) X10*3/uL Baso # (Auto) 0.0 (0.0-0.2) X10*3/uL Abs Immat Gran (auto) 0.01 (0.00-0.03) X10*3/uL Absolute Neuts (auto) 3.6 (2.0-8.3) x10*3/uL Absolute Nucleated RBC 0.000 (0.0-0.012) X10*3/uL Nucleated RBC % (auto) 0.0 (0.0-0.2) /100WBC PT 28.5 H (11.1-13.3) SEC INR 2.3 H (0.9-1.1) APTT 39.2 H (26.0-36.4) SEC Sodium 138 (135-145) mmol/L Potassium 3.8 (3.3-5.1) mmol/L Chloride 106 (96-108) mmol/L Carbon Dioxide 23 (22-29) mmol/L Anion Gap 13 (12-20) BUN 15 (9-16) mg/dL Creatinine 0.74 (0.5-1.4) mg/dL Estim Creat Clear Calc 86.5 Estimated GFR > 60 Random Glucose 95 (60-115) mg/dL Calcium 9.2 (8.4-10.2) mg/dL Total Bilirubin 0.4 (0.0-1.0) mg/dL AST 26 (5-37) U/L ALT 21 (0-40) U/L Alkaline Phosphatase 41 (39-117) U/L Troponin I High Sens < 2.7 (<3.5-35.0) ng/L B-Natriuretic Peptide 41 (<100) pg/mL Total Protein 6.6 (6.5-8.0) g/dL Albumin 4.0 (3.5-5.0) g/dL Lipase 10 (8-78) U/L Urine Color Yellow Urine Appearance Clear Urine pH 6.0 (5.0-9.0) Ur Specific [place] 1.015 (1.005-1.025) Urine Protein Negative (Neg-Trace) mg/dL Urine Glucose (UA) Negative (Negative) mg/dL Urine Ketones 15 (Negative) mg/dL Urine Blood Negative (Negative) Urine Nitrite Negative (Negative) Ur Leukocyte Esterase Moderate (2+) H (Negative) Urine RBC 0-2 (0-2) /HPF Urine WBC 11-20 H (0-5) /HPF Ur Squamous Epith Cells 0-2 (0-2) /HPF Urine Bacteria Trace (None Seen) Hyaline Casts 0-2 (0-2) /LPF COVID-19 (KEIRY) Negative (Negative) COVID-19 Clin Com See Note Influenza Type A (CARRILLO) Negative (Negative) Influenza Type B (CARRILLO) Negative (Negative) Influenza A & B Note See Note Independent Interpretation I performed an independent interpretation of an: Plain X-Ray Interpretation: I reviewed the chest x-ray and agree with the radiologic findings Radiology Impression Discussion of test interpretation with radiology: I have reviewed the radiologist's reading. Radiologist Impression: EXAMINATION: XR CHEST CLINICAL INFORMATION: Chest pain. COMPARISON: Chest radiograph 07/09/2014. TECHNIQUE: Frontal view of the chest was obtained. FINDINGS: Normal appearance of the cardiomediastinal silhouette. No focal airspace opacities, pleural effusion or pneumothorax. No acute osseous findings. XR/XR chest 1V IMPRESSION: No acute cardiopulmonary findings. Dictated By: Heather Powell Discharge Plan Discharge Clinical Impression: Urinary tract infection Patient Disposition: Home, Self-Care Instructions: Urinary Tract Infection in Men (ED) Additional Instructions: You were seen in the emergency department due to urinary symptoms. You have a urinary tract infection. You tested negative for COVID and flu. Your chest x-ray was normal. Please take prescribed medication as directed. We have given you your 1st dose of the antibiotic in the department today. Finish the entire course even if your feeling better. Your urine will be sent out for further testing, we will call you if we need to switch the antibiotic. Drink plenty of fluids get plenty of rest. If any new or worsening symptoms occur including but not limited to chest pain, shortness of breath, worsening urinary symptoms, fevers, chills, worsening abdominal pain, please return for re-evaluation. Fue atendido en urgencias por s?ntomas urinarios. Tienes josette infecci?n del tracto urinario. Quique negativo en la prueba de COVID y gripe. Delgado radiograf?a de t?rax fue normal. [place] los medicamentos recetados seg?n las indicaciones. Le hemos administrado hoy delgado primera dosis del antibi?deanna en el departamento. Termina todo el curso incluso si te sientes mejor. Delgado orina se enviar? para realizar m?s pruebas y lo llamaremos si necesitamos cambiar el antibi?deanna. Kimberly muchos l?quidos y descanse mucho. Si se presenta alg?n s?ntoma nuevo o que empeora, incluidos, entre otros, dolor en el pecho, dificultad para respirar, empeoramiento de los s?ntomas urinarios, fiebre, escalofr?os o dolor abdominal que empeora, regrese para josette nueva evaluaci?n. Prescriptions: New cefuroxime axetil 500 mg tablet 500 mg PO BID 7 Days Qty: 13 0RF Rx Instructions: First dose taken on 11/14/2023 No Action methenamine hippurate 1 gram tablet 1 g PO DAILY 90 Days Qty: 90 1RF warfarin 3 mg tablet 3 mg PO DAILY Qty: 90 0RF Protocol: Dose Management Condition: Wednesday (Week One) Dose/Route: 3 mg Instruction: 1 x 3 mg tablet Condition: Wednesday Dose/Route: 1.5 mg Instruction: 0.5 x 3 mg tablets Condition: Wednesday Dose/Route: 3 mg Instruction: 1 x 3 mg tablet Condition: Wednesday Dose/Route: 1.5 mg Instruction: 0.5 x 3 mg tablets Condition: Dose/Route: 3 mg Instruction: 1 x 3 mg tablet Condition: Wednesday Dose/Route: 1.5 mg Instruction: 0.5 x 3 mg tablets Condition: Wednesday Dose/Route: 3 mg Instruction: 1 x 3 mg tablet Condition: Wednesday (Week Two) Dose/Route: 3 mg Instruction: 1 x 3 mg tablet Condition: Wednesday Dose/Route: 1.5 mg Instruction: 0.5 x 3 mg tablets Condition: Wednesday Dose/Route: 3 mg Instruction: 1 x 3 mg tablet Condition: Wednesday Dose/Route: 1.5 mg Instruction: 0.5 x 3 mg tablets Condition: Dose/Route: 3 mg Instruction: 1 x 3 mg tablet Condition: Wednesday Dose/Route: 1.5 mg Instruction: 0.5 x 3 mg tablets Condition: Wednesday Dose/Route: 3 mg Instruction: 1 x 3 mg tablet Protocol Text: Adjustment Start Date: Wednesday11/08/23 INR Value: 2.9 INR Date: 11/08/23 Recheck Date: 11/29/23 Additional Instructions: INR is in range continue same dosing have greens today then balance greens and reds in diet, be consistent baclofen 20 mg tablet 20 mg PO QID pyridoxine (vitamin B6) PO Patient Comments: 1 TAB DAILY Shingrix gE Antigen Component 50 mcg suspension for reconstitution IM bisacodyl [Dulcolax (bisacodyl)] 5 mg tablet,delayed release (DR/EC) 10 mg PO BEDTIME 2 Days Qty: 4 0RF oxycodone-acetaminophen 5-325 mg tablet 1 tab PO Q8H PRN (Reason: pain) Minerin Creme Cream topical BID clonazepam 1 mg tablet 0 mg PO Reguloid (aspartame) 3 gram/5.8 gram powder PO DAILY PRN (Reason: constipation) lidocaine HCl 2 % jelly topical TID naloxone 4 mg/actuation spray,non-aerosol 0 spray intranasal ascorbic acid (vitamin C) [Vitamin C] 500 mg tablet 1,000 mg PO DAILY lidocaine HCl 2 % jelly in applicator topical Print Language: Romansh
[2023-11-14 12:01] LABS: MANUAL DIFF FLAG NO
[2023-11-14 12:02] LABS: Basophils Percent Auto 0.2 % (0-2); Eosinophils Percent Auto 0.6 % (0-4); Hematocrit 42.4 % (42.0-52.0); Hemoglobin 13.8 g/dl (14.0-18.0); Imm Gran Abs Auto 0.01 X10*3/uL (0.00-0.03); Imm Gran Pct Auto 0.2 % (0.0-0.4); Lymphocytes Absolute Auto 1.2 X10*3/uL (1.2-4.9); Mean Corpuscular HGB Conc 32.5 g/dl (31.0-36.0); Mean Platelet Volume 9.2 fL (9.4-12.4); Monocytes Absolute Auto 0.5 X10*3/uL (0.1-1.2); Monocytes Percent Auto 9.5 % (2-11); Neutrophils Absolute Auto 3.6 x10*3/uL (2.0-8.3); Neutrophils Percent Auto 67.5 % (45-73); Platelet Count 187 X10*3/uL (160-400); Red Blood Count 4.93 X10*6/uL (4.60-5.80); Red Cell Distribution Width 13.2 % (11.0-16.0); White Blood Count 5.4 X10*3/uL (4.8-10.8)
[2023-11-14 12:09] LABS: INTERNATIONAL NORM RATIO 2.3 (0.9-1.1); Prothrombin Time 28.5 SEC (11.1-13.3)
[2023-11-14 12:12] LABS: Partial Thromboplastin Time 39.2 SEC (26.0-36.4)
[2023-11-14 12:16] LABS: COVID-19 Test Negative (Negative); IDNOW Serial# 08D9AD1C
[2023-11-14 12:18] LABS: IDNOW Serial# 152EDE1D; Influenza A Negative (Negative); Influenza B2 Negative (Negative)
[2023-11-14 12:27] LABS: Alanine Aminotransferase 21 U/L (0-40); Alkaline Phosphatase 41 U/L (39-117); Anion Gap 13 (12-20); Aspartate Amino Transferase 26 U/L (5-37); Bilirubin Total 0.4 mg/dL (0.0-1.0); Blood Urea Nitrogen 15 mg/dL (9-16); Calcium 9.2 mg/dL (8.4-10.2); Carbon Dioxide 23 mmol/L (22-29); Chloride 106 mmol/L (96-108); Creatinine Clr Calc Pharmacy 86.5; Estimated Glomerular Filt Rate > 60; Glucose Random 95 mg/dL (60-115); Lipase 10 U/L (8-78); Potassium 3.8 mmol/L (3.3-5.1); Sodium 138 mmol/L (135-145); Total Protein 6.6 g/dL (6.5-8.0)
[2023-11-14 12:30] LABS: B Type Natriuretic Peptide 41 pg/mL (<100)
[2023-11-14 12:36] LABS: Troponin-I High Sensitivity < 2.7 ng/L (<3.5-35.0)
[2023-11-14 12:56] VITALS: BP 110/64; PULSE 60; RESP 16; TEMP 36.5; O2SAT 97
[2023-11-14 13:27] VITALS: BP 128/66; PULSE 61; RESP 16; O2SAT 98
--- NOTE | 2023-11-14 13:53 | PC.NURSE ---
magalys galvin notified pt states he self-caths as cannot spont. void d/t paralysis below waist. supervisor roving department came to bedside. pt then cath'd and urine sent to lab.
[2023-11-14 14:09] LABS: Appearance Urine Clear; Color Urine Yellow; Glucose Urine UA Negative (Negative); Leukocyte Esterase Urine Moderate (2+) (Negative); Nitrite Urine Negative (Negative); Specific Gravity - Urine 1.015 (1.005-1.025); UMIC TRIGGER UACC YES; Urine Blood Negative (Negative); Urine Ketones 15 mg/dL (Negative); Urine Protein Negative (Neg-Trace)
[2023-11-14 14:12] LABS: Bacteria Urine Trace (None Seen); Hyaline Casts Urine 0-2 /LPF (0-2); RBC Urine 0-2 /HPF (0-2); Squamous Epithelial Cell Urine 0-2 /HPF (0-2); UACC Culture Trigger YES
[2023-11-14 15:26] VITALS: BP 137/62; PULSE 54; RESP 16; TEMP 36.9; O2SAT 96
--- NOTE | 2023-11-14 15:30 | PC.NURSE ---
awaiting mechanical design technician for ride
[2023-11-14] MEDS: cefuroxime axetiL 500 MG TABLET PO (15:48)
== END 2023-11-14 16:20 | disposition home or self-care (01) ==
PROVIDERS: Physician Assistant; Emergency Provider Emergency Medicine; PCP Internal Medicine
DX: N39.0 Urinary tract infection, site not specified (principal); R33.9 Retention of urine, unspecified; R50.9 Fever, unspecified; R06.02 Shortness of breath; Z79.899 Other long term (current) drug therapy; Z11.52 Encounter for screening for COVID-19
CPT/HCPCS: 71045; 80053; 81001; 83690; 83880; 84484; 85025; 85610; 85730; 87086; 87088; 87186; 87502; 87635; 93005; 99284; 99285

== ENCOUNTER → 2023-11-14 11:28 | Outpatient (BNV) | payer MEDICARE, SELFPAY | PROVIDERS: Emergency Provider Emergency Medicine; PCP Internal Medicine; Visit Provider Internal Medicine Cardiovascular Disease | DX: R06.02 Shortness of breath (principal) | CPT/HCPCS: 93010 ==

== ENCOUNTER 2023-11-29 11:04 | Outpatient (AMB) | payer MEDICARE, SELFPAY ==
[2023-11-29 11:20] LABS: Prothrombin Time Whole Bld POC 27.1 sec (11.1-13.5); ~PT, ~INR - Anti Coag Clinic 2.3 (0.9-1.1)
--- NOTE | 2023-11-29 11:22 | MHC.OFFVISCO ---
Intake Intake Visit Reasons: Anticoagulation Allergies No Known Allergies Allergy (Mild, Verified 11/14/23 11:28) NOT APPLICABLE Nursing Note INR: 2.3 in therapeutic range Medications and supplements reviewed No changes in health, diet, medications, or supplements, Denies any signs and symptoms of bleeding or bruising or clotting. Bleeding, bruising, clotting discussed Nutritional guidance given Dose: 1.5mg x 3 days/ 3mg x 4 days F/U INR: 4 weeks Patient verbalizes understanding of instructions given Anti-Coag Initial Assessment Social Hx Patient Tobacco Use Status: Former Tobacco user Coding Level of Care Code Est Patient Level 1 Diagnoses Current use of anticoagulant therapy Z79.01 Assessment & Plan Assessment & Plan (1) Current use of anticoagulant therapy: Code(s): Z79.01 - custodial (current) use of anticoagulants Category: Medical
== END 2023-11-29 11:30 | disposition home or self-care (01) ==
LOC: HO.ACS 11:04
PROVIDERS: PCP Internal Medicine; Visit Provider Internal Medicine
DX: Z79.01 Long term (current) use of anticoagulants (principal)

== ENCOUNTER → 2023-11-29 11:04 | Outpatient (BNVA) | payer MEDICARE, SELFPAY | PROVIDERS: PCP Internal Medicine; Visit Provider Internal Medicine | DX: I26.99 Other pulmonary embolism without acute cor pulmonale (principal); Z79.01 Long term (current) use of anticoagulants; Z51.81 Encounter for therapeutic drug level monitoring | CPT/HCPCS: 85610; 99211 ==

== ENCOUNTER 2023-12-14 18:06 | Outpatient (REF) | payer MEDICARE, SELFPAY | END 2023-12-14 18:07 | disposition home or self-care (01) | LOC: HO.HHCLNP 18:06 | PROVIDERS: Visit Provider Nurse Practitioner Family | DX: N30.00 Acute cystitis without hematuria (principal) | CPT/HCPCS: 87086; 87088; 87186 ==

== ENCOUNTER 2023-12-15 16:00 | Emergency (ER) | payer MEDICARE, SELFPAY ==
--- NOTE | ~2023-12-15 | CT_ITS ---
EXAMINATION: CT ABDOMEN AND PELVIS WITHOUT CONTRAST CLINICAL INFORMATION: Dysuria. Left flank pain. Rule out stone. COMPARISON: Previous CT of the abdomen and pelvis from 2020 TECHNIQUE: Multidetector volumetric imaging was performed from the superior aspect of the liver through the pubic symphysis. Sagittal and coronal reformatted images were obtained on the technologist's workstation. This CT examination was performed using dose optimization techniques as appropriate, variously including the following: *Automated exposure control *Adjustment of mA and/or kV according to patient size (this includes techniques or standardized protocols for targeted exams where dose is matched to indication/reason for exam; i.e. extremities or head) *Use of iterative reconstruction technique DLP: 474 mGy-cm FINDINGS: LUNG BASES: The visualized lung bases are unremarkable. LIVER, GALLBLADDER, AND BILIARY TREE: The liver is normal in size, shape, and attenuation. No focal hepatic lesion or biliary ductal dilatation is present. The gallbladder is unremarkable with no evidence of radiopaque gallstones, gallbladder wall thickening, or obvious pericholecystic inflammatory changes. PANCREAS: Unremarkable. SPLEEN: Unremarkable. ADRENAL GLANDS: Unremarkable. KIDNEYS AND URETERS: There are areas of left renal cortical thinning or scarring. There are left renal no imaging follow-up. No hydronephrosis, hydroureter, or calculi seen. No perinephric stranding. BLADDER: Not optimally distended. Question mild diffuse bladder wall thickening. GASTROINTESTINAL TRACT: The small and large bowel are unremarkable. The appendix is unremarkable. ABDOMINAL WALL: No significant hernia is appreciated. LYMPH NODES: Normal. VASCULAR: Unremarkable. PELVIC VISCERA: Unremarkable. OSSEOUS STRUCTURES: Spinal stimulator tip of the lead in the T11 level and battery in the right anterior abdominal wall. Moderate L1 vertebral body compression fracture. Mild retrolisthesis of L5 respect to S1. Findings are similar to [address]/CT abdomen pelvis wo IV con IMPRESSION: Left renal cortical thinning or scarring. No stone or hydronephrosis. Bladder not optimally distended. Difficult to exclude mild bladder wall thickening. Fleischner guidelines were followed.
--- NOTE | 2023-12-15 16:10 | ED.GENADULT ---
HPI - General Adult General Chief complaint: Urogenital-Male Stated complaint: uti and pain, seen by [facility] yesterday Time Seen by Provider: 12/15/23 17:56 History of Present Illness HPI narrative: The patient is a 63-year-old male. He is a paraplegic following an episode of meningitis about 20 years ago. I believe he was treated in [place] at the time. He has been unable to spontaneously void since then. He self-catheterizes. He says that because of self catheterization he gets urinary tract infections with some frequency. He says that he has been having urethral discomfort and what he describes his bladder spasms for about 4 days. Yesterday he went to the [facility]. He says he received an injection of an antibiotic medication. He says he was prescribed phenazopyridine for his discomfort. Today he did not feel any better. He still has a great deal of discomfort although he has been taking Percocet at home. He does not think he has had a fever. He has had no vomiting. He has pain in his left flank. He does not have a history of kidney stones. The patient says that he has completely normal use of his arms and does a lot of arm exercises. He says that following his meningitis he had some function of both of his legs but he had a back surgery which was unsuccessful and which left him with no use at all of his left leg. He says that prior to the back surgery in [place] he had been able to walk a little bit with a walker. Following the surgery however his left leg weakness precluded him from using a walker and he now uses a wheelchair. Related Data Home Medications Medication Instructions Recorded Confirmed baclofen 20 mg tablet 20 mg PO QID 03/05/21 11/08/23 pyridoxine (vitamin B6) [Vitamin PO 03/05/21 11/08/23 B-6] varicella-zoster gE vac,2 of 2 50 IM 04/04/21 11/08/23 mcg IM suspension (Shingrix gE Antigen Component) clonazepam 1 mg tablet 0 mg PO 08/08/21 11/08/23 psyllium husk (aspartame) 3 g PO DAILY PRN constipation 08/08/21 11/08/23 gram/5.8 gram oral powder (Reguloid (aspartame)) lanolin alcohols-mineral appl topical BID 08/18/21 11/08/23 oil-w.petrolatum-ceresin topical cream (Minerin Creme topical) oxycodone-acetaminophen 5 mg-325 1 tab PO Q8H PRN pain 08/18/21 11/08/23 mg tablet lidocaine HCl 2 % mucosal jelly ml topical TID 03/10/22 11/08/23 naloxone 4 mg/actuation nasal spray 0 spray intranasal 11/30/22 11/08/23 lidocaine HCl 2 % mucosal jelly in ml topical 04/13/23 11/08/23 applicator ascorbic acid (vitamin C) 500 mg 1,000 mg PO DAILY 06/08/23 11/08/23 tablet (Vitamin C) Previous Rx's Medication Instructions Recorded warfarin 3 mg tablet 3 mg PO DAILY #90 tabs 08/08/20 bisacodyl 5 mg tablet,delayed 10 mg (2 x 5 mg) PO BEDTIME 2 days 08/18/21 release (Dulcolax (bisacodyl)) #4 tabs methenamine hippurate 1 gram tablet 1 g PO DAILY 90 days #90 tabs 07/19/23 cefuroxime axetil 500 mg tablet 500 mg PO BID 7 days #13 tabs 11/14/23 cefpodoxime 100 mg tablet 100 mg PO BID #14 tabs 12/15/23 phenazopyridine 200 mg tablet 200 mg PO TID PRN dysuria 6 doses 12/15/23 #6 tabs Allergies Allergy/AdvReac Type Severity Reaction Status Date / Time No Known Allergies Allergy Mild NOT Verified 11/14/23 11:28 APPLICABLE Review of Systems Review of Systems: Yes all other systems are reviewed and are negative PMFSH Past Medical History Medical History Paraplegia DVT (deep venous thrombosis) UTI (urinary tract infection) Hx of meningitis Renal cyst, acquired Neurogenic bladder Surgical History History of colonoscopy H/O abdominal surgery Social History Social History Patient Tobacco Use Status: Former Tobacco user Smoked in Last 30 Days: No Use of substances other than those prescribed or required for medical reasons: No Advance Directives: No Advance Directives Information Provided: No Physical Exam ED Vital Signs: Vital Signs - 24 hr 12/15/23 16:11 12/15/23 19:20 Temperature 97.4 F 97.7 F Pulse Rate 76 57 Respiratory Rate 18 16 Blood Pressure 117/40 L 101/63 Pulse Oximetry 98 99 Oxygen Delivery Method Room Air Room Air BMI result Body Mass Index 24.3 Const Other: The patient is a 63-year-old male who was awake and alert with a normal mental status. He does not appear obviously toxic or in distress. HENMT Other: The face is symmetrical. ?Mucous membranes moist. Eyes Other: Pupils are round equal, conjunctivae are clear, extraocular movements intact Neck Other: No neck swelling. Neck is unremarkable. No JVD Resp Effort & Inspection: normal respiratory effort Auscultation: clear to auscultation bilaterally Cardio Rate: regular rate Rhythm: regular rhythm Heart sounds: S1 normal heart sound present and S2 normal heart sound present GI Other: The abdomen seems soft. There is suprapubic tenderness. Back/Spine/Pelvis Other: There seemed to be some mild left CVA tenderness with percussion. Skin Other: Skin is dry and unremarkable Neuro Other: The patient is awake, alert, with a normal mental status. Cranial nerves are grossly intact. The patient has a very muscular upper body with normal function of the arms. Both legs are atrophied, the left leg more than the right. He has some minimal function of wiggling the right leg. No function of the left leg. Extrem Other: His upper extremities are very muscular. Both lower extremities are atrophic, particularly the left leg. Course Course Course Narrative: This is a rapid medical exam: Additional HPI, ROS, PE not included below will be deferred to primary provider. Patient is a 63-year old male with history of paraplegia, DVT, neurogenic bladder, recurrent UTIs presenting to the ED with complaint of urethral pain, this is 4th day. Yesterday he went to [facility], was prescribed phenazopyridine. He straight caths but has been having difficulty due to pain, already uses lidocaine jelly. Plan: UA, labs Medications Administered Discontinued Medications Generic Name Dose Route Start Last Admin Trade Name Freq PRN Reason Stop Dose Admin Sodium Chloride 1,000 mls @ 999 mls/hr 12/15/23 19:00 12/15/23 19:17 Ns IV 12/15/23 20:00 999 mls/hr .Q1H1M KEVIN Administration Ceftriaxone Sodium 1 gm/ 50 mls @ 100 mls/hr 12/15/23 19:45 12/15/23 20:04 Sodium Chloride IV 12/15/23 20:14 100 mls/hr ONCE ONE Administration Morphine Sulfate 8 mg 12/15/23 18:46 12/15/23 19:16 Morphine Sulfate 10 Mg/Ml Cartridge IVPUSH 12/15/23 18:47 8 mg ONCE ONE Administration Protocol Medical Decision Making Medical Decision Making [facility] Narrative: The patient is a paraplegic who self catheterizes. He has been paraplegic for about 20 years following a case of meningitis treated in [place]. He gets fairly frequent UTIs as a result of his self catheterization despite describing meticulous technique with self catheterization. He presents with 4 days of symptoms of a UTI. He has not febrile and he does not look toxic. He seems to describe possible left flank pain with some mild left CVA percussion tenderness which could potentially represent findings of a kidney stone. A urine culture had been sent from [facility] yesterday. The urinalysis is not available in our system but the culture is being run in our lab and is already growing greater than 100,000 colonies of Gram-negative rods In [address] of his abdomen and pelvis that showed no stones. His most recent urinary culture is from November 14, 2023, essentially 1 month ago. That culture grew both Klebsiella pneumoniae and Enterobacter cloaca. The sensitivities for those cultures showed resistance to ampicillin for the Klebsiella pneumonia but otherwise no other resistance is for either organism. Prior to that culture the most recent culture is from August 13 when he grew both an E coli species and a Klebsiella pneumonia species. Given the absence of any evidence of systemic illness and given the absence of any kidney stones on CT think the patient can be managed as an outpatient. I will prescribe cefpodoxime 100 mg b.i.d. x7 days. I have also prescribed some additional phenazopyridine. The patient seemed comfortable with the prospect of being discharged. Lab Data 12/15/23 16:56 12/15/23 16:56 Labs: Lab Results 12/15/23 Range/Units 16:56 WBC 4.7 L (4.8-10.8) X10*3/uL RBC 5.10 (4.60-5.80) X10*6/uL Hgb 14.5 (14.0-18.0) g/dl Hct 43.7 (42.0-52.0) % MCV 85.7 (80.0-98.0) fL MCH 28.4 (27.0-33.0) pg MCHC 33.2 (31.0-36.0) g/dl RDW 13.2 (11.0-16.0) % Plt Count 184 (160-400) X10*3/uL MPV 9.0 L (9.4-12.4) fL Immature Gran % (Auto) 0.2 (0.0-0.4) % Neut % (Auto) 60.7 (45-73) % Lymph % (Auto) 25.8 (20-40) % [place] % (Auto) 11.8 H (2-11) % Eos % (Auto) 1.3 (0-4) % Baso % (Auto) 0.2 (0-2) % Lymph # (Auto) 1.2 (1.2-4.9) X10*3/uL [place] # (Auto) 0.6 (0.1-1.2) X10*3/uL Eos # (Auto) 0.1 (0.0-0.4) X10*3/uL Baso # (Auto) 0.0 (0.0-0.2) X10*3/uL Abs Immat Gran (auto) 0.01 (0.00-0.03) X10*3/uL Absolute Neuts (auto) 2.9 (2.0-8.3) x10*3/uL Absolute Nucleated RBC 0.000 (0.0-0.012) X10*3/uL Nucleated RBC % (auto) 0.0 (0.0-0.2) /100WBC Sodium 134 L (135-145) mmol/L Potassium 4.1 (3.3-5.1) mmol/L Chloride 102 (96-108) mmol/L Carbon Dioxide 25 (22-29) mmol/L Anion Gap 11 L (12-20) BUN 13 (9-16) mg/dL Creatinine 0.71 (0.5-1.4) mg/dL Estim Creat Clear Calc 90.2 Estimated GFR > 60 Random Glucose 92 (60-115) mg/dL Calcium 9.0 (8.4-10.2) mg/dL Total Bilirubin 0.4 (0.0-1.0) mg/dL AST 27 (5-37) U/L ALT 23 (0-40) U/L Alkaline Phosphatase 42 (39-117) U/L C-Reactive Protein < 0.10 (< or = 0.50) mg/dL Total Protein 6.7 (6.5-8.0) g/dL Albumin 4.2 (3.5-5.0) g/dL Discharge Plan Discharge Clinical Impression: Urinary tract infection, Dysuria, Paraplegia Patient Disposition: Home, Self-Care Additional Instructions: The urine sample that was obtained yesterday is being run for a culture. There is a preliminary positive result. The final result is not yet available. You received a dose of 1 gram of IV ceftriaxone as an antibiotic today. I have sent a prescription for an antibiotic called cefpodoxime to your pharmacy which you should take at home. Please take this prescription 2 times a day for the next 7 days. First dose tomorrow morning. I have also sent a prescription for phenazopyridine which may help your discomfort with urination. You may take this up to 3 times a day for 2 days. This will turn your urine orange. Please stay in touch with your primary care doctor's office. Return to the emergency department if you are obviously worse especially if fever or vomiting. Prescriptions: New cefpodoxime 100 mg tablet 100 mg PO BID Qty: 14 0RF Rx Instructions: must administer with a meal/food phenazopyridine 200 mg tablet 200 mg PO TID PRN (Reason: dysuria) Qty: 6 0RF No Action methenamine hippurate 1 gram tablet 1 g PO DAILY 90 Days Qty: 90 1RF cefuroxime axetil 500 mg tablet 500 mg PO BID 7 Days Qty: 13 0RF Rx Instructions: First dose taken on 11/14/2023 warfarin 3 mg tablet 3 mg PO DAILY Qty: 90 0RF Protocol: Dose Management Condition: Wednesday (Week One) Dose/Route: 3 mg Instruction: 1 x 3 mg tablet Condition: Wednesday Dose/Route: 1.5 mg Instruction: 0.5 x 3 mg tablets Condition: Wednesday Dose/Route: 3 mg Instruction: 1 x 3 mg tablet Condition: Wednesday Dose/Route: 1.5 mg Instruction: 0.5 x 3 mg tablets Condition: Dose/Route: 3 mg Instruction: 1 x 3 mg tablet Condition: Wednesday Dose/Route: 1.5 mg Instruction: 0.5 x 3 mg tablets Condition: Wednesday Dose/Route: 3 mg Instruction: 1 x 3 mg tablet Condition: Wednesday (Week Two) Dose/Route: 3 mg Instruction: 1 x 3 mg tablet Condition: Wednesday Dose/Route: 1.5 mg Instruction: 0.5 x 3 mg tablets Condition: Wednesday Dose/Route: 3 mg Instruction: 1 x 3 mg tablet Condition: Wednesday Dose/Route: 1.5 mg Instruction: 0.5 x 3 mg tablets Condition: Dose/Route: 3 mg Instruction: 1 x 3 mg tablet Condition: Wednesday Dose/Route: 1.5 mg Instruction: 0.5 x 3 mg tablets Condition: Wednesday Dose/Route: 3 mg Instruction: 1 x 3 mg tablet Protocol Text: Adjustment Start Date: Wednesday11/29/23 INR Value: 2.3 INR Date: 11/14/23 Recheck Date: 12/27/23 Additional Instructions: seguir comiendo josette mezcla de frutas y verduras por favor llame con cualquier cambio de medicaci?n baclofen 20 mg tablet 20 mg PO QID pyridoxine (vitamin B6) PO Patient Comments: 1 TAB DAILY Shingrix gE Antigen Component 50 mcg suspension for reconstitution IM bisacodyl [Dulcolax (bisacodyl)] 5 mg tablet,delayed release (DR/EC) 10 mg PO BEDTIME 2 Days Qty: 4 0RF oxycodone-acetaminophen 5-325 mg tablet 1 tab PO Q8H PRN (Reason: pain) Minerin Creme Cream topical BID clonazepam 1 mg tablet 0 mg PO Reguloid (aspartame) 3 gram/5.8 gram powder PO DAILY PRN (Reason: constipation) lidocaine HCl 2 % jelly topical TID naloxone 4 mg/actuation spray,non-aerosol 0 spray intranasal ascorbic acid (vitamin C) [Vitamin C] 500 mg tablet 1,000 mg PO DAILY lidocaine HCl 2 % jelly in applicator topical Interventions: ED Discharge Assessment Last Done: 12/15/23 20:40 Discharge Date/Time: 12/15/23 20:41
[2023-12-15 16:11] VITALS: BP 117/40; PULSE 76; RESP 18; TEMP 36.3; O2SAT 98; BMI 24.3
[2023-12-15 17:01] LABS: MANUAL DIFF FLAG NO
[2023-12-15 17:02] LABS: Basophils Percent Auto 0.2 % (0-2); Eosinophils Absolute Auto 0.1 X10*3/uL (0.0-0.4); Eosinophils Percent Auto 1.3 % (0-4); Hematocrit 43.7 % (42.0-52.0); Hemoglobin 14.5 g/dl (14.0-18.0); Imm Gran Abs Auto 0.01 X10*3/uL (0.00-0.03); Imm Gran Pct Auto 0.2 % (0.0-0.4); Lymphocytes Absolute Auto 1.2 X10*3/uL (1.2-4.9); Lymphocytes Percent Auto 25.8 % (20-40); Mean Corpuscular HGB Conc 33.2 g/dl (31.0-36.0); Mean Corpuscular Hemoglobin 28.4 pg (27.0-33.0); Mean Corpuscular Volume 85.7 fL (80.0-98.0); Monocytes Absolute Auto 0.6 X10*3/uL (0.1-1.2); Monocytes Percent Auto 11.8 % (2-11); Neutrophils Absolute Auto 2.9 x10*3/uL (2.0-8.3); Neutrophils Percent Auto 60.7 % (45-73); Platelet Count 184 X10*3/uL (160-400); Red Cell Distribution Width 13.2 % (11.0-16.0); White Blood Count 4.7 X10*3/uL (4.8-10.8)
[2023-12-15 17:15] LABS: Alanine Aminotransferase 23 U/L (0-40); Albumin Level 4.2 g/dL (3.5-5.0); Alkaline Phosphatase 42 U/L (39-117); Anion Gap 11 (12-20); Aspartate Amino Transferase 27 U/L (5-37); Bilirubin Total 0.4 mg/dL (0.0-1.0); Blood Urea Nitrogen 13 mg/dL (9-16); Carbon Dioxide 25 mmol/L (22-29); Chloride 102 mmol/L (96-108); Creatinine Clr Calc Pharmacy 90.2; Estimated Glomerular Filt Rate > 60; Glucose Random 92 mg/dL (60-115); Potassium 4.1 mmol/L (3.3-5.1); Sodium 134 mmol/L (135-145); Total Protein 6.7 g/dL (6.5-8.0)
[2023-12-15 19:13] LABS: C Reactive Protein < 0.10 mg/dL (< or = 0.50)
[2023-12-15] MEDS: Morphine Sulfate 10 MG/ML CARTRIDGE 8 MG IVPUSH (19:16)
[2023-12-15] MEDS: 0.9 % Sodium Chloride 1,000 ML 999 ML IV (19:17)
[2023-12-15 19:20] VITALS: BP 101/63; PULSE 57; RESP 16; TEMP 36.5; O2SAT 99
[2023-12-15] MEDS: cefTRIAXone sodium 1 GM in 0.9 % Sodium Chloride 50 ML IV (20:04)
== END 2023-12-15 20:41 | disposition home or self-care (01) ==
PROVIDERS: Registered Nurse Emergency; Emergency Provider Emergency Medicine
DX: N39.0 Urinary tract infection, site not specified (principal); G82.20 Paraplegia, unspecified; Z86.718 Personal history of other venous thrombosis and embolism; Z86.61 Personal history of infections of the central nervous system
CPT/HCPCS: 36415; 74176; 80053; 85025; 86140; 96374; 96375; 99284; J0696; J2270

== ENCOUNTER → 2023-12-16 08:43 | Outpatient (BNVA) | payer MEDICARE, SELFPAY | PROVIDERS: Visit Provider Internal Medicine ==

== ENCOUNTER 2023-12-17 17:30 | Emergency (ER) | payer MEDICARE, SELFPAY ==
--- NOTE | ~2023-12-17 | CT_ITS ---
EXAMINATION: CT ABDOMEN AND PELVIS WITH CONTRAST CLINICAL INFORMATION: Bilateral lower abdominal/suprapubic pain/tenderness. COMPARISON: CT abdomen pelvis 12/07/2023 TECHNIQUE: Multidetector volumetric images were obtained from the superior aspect of the liver through the pubic symphysis following administration 85 mL of Omnipaque 350 intravenous contrast. Sagittal and coronal reformatted images were obtained on the technologist's workstation. Oral contrast: No This CT examination was performed using dose optimization techniques as appropriate, variously including the following: *Automated exposure control *Adjustment of mA and/or kV according to patient size (this includes techniques or standardized protocols for targeted exams where dose is matched to indication/reason for exam; i.e. extremities or head) *Use of iterative reconstruction technique DLP: 395 mGy-cm FINDINGS: LUNG BASES: There is bibasilar dependent atelectasis. The heart size is normal. There is small hiatal hernia. LIVER, GALLBLADDER, AND BILIARY TREE: The liver is normal in size, shape, and attenuation. No focal hepatic lesion or biliary ductal dilatation is present. The gallbladder is unremarkable with no evidence of radiopaque gallstones, gallbladder wall thickening, or obvious pericholecystic inflammatory changes. PANCREAS: Unremarkable. SPLEEN: Unremarkable. ADRENAL GLANDS: Unremarkable. KIDNEYS AND URETERS: The kidneys are normal in size, shape, and attenuation. There is mild cortical thinning mid and lower pole left kidney No hydronephrosis, hydroureter, or calculi seen. No perinephric stranding. There are multiple left renal cysts. Largest in lower pole left kidney measures 1.8 cm. BLADDER: Unremarkable. GASTROINTESTINAL TRACT: There is moderate stool and gas seen throughout the colon without distention. The small bowel loops are normal caliber. Appendix is normal caliber. No free air or inflammatory process seen in abdomen or pelvis. ABDOMINAL WALL: No significant hernia is appreciated. LYMPH NODES: Normal. VASCULAR: Unremarkable. PELVIC VISCERA: Unremarkable. OSSEOUS STRUCTURES: Unremarkable. CT/CT abdomen pelvis w IV con IMPRESSION: Moderate constipation. No acute process seen. Left renal mid and lower pole cortical thinning, stable. Multiple left renal cysts. No major change from previous exam 12/07/2023 Fleischner guidelines were followed.
[2023-12-17 17:37] VITALS: BP 116/62; BP 142/100; PULSE 69; PULSE 72; RESP 20; TEMP 36.5; O2SAT 100; O2SAT 96; BMI 25.5
--- NOTE | 2023-12-17 17:49 | ED.GENADULT ---
HPI - General Adult General Chief complaint: General Medical Stated complaint: Abdominal pain Time Seen by Provider: 12/17/23 17:49 History of Present Illness HPI narrative: The patient is a 63-year-old male who is a paraplegic. He has been a paraplegic for approximately 20 years. He says this was a consequence of meningitis. He perform self catheterization of his bladder at home and has been doing this for a long time. He has had fairly frequent urinary tract infections over the last several years. He came to the emergency room 2 days ago on December 15 because of severe dysuria. He had been seen at the [facility] the day before and a urine sample had been obtained and sent for culture. He had been given 500 mg of IM ceftriaxone on that day. He then presented here 2 days ago because of worsening urinary pain. His culture at that point was growing greater than 100,000 colonies of Gram-negative rods. Here he did not seem septic. He was given 1 g of IV ceftriaxone and discharged on cefpodoxime. He returns to the emergency room today because of persistent severe urinary discomfort and a sense of bladder spasms. No sexual contact for a couple of years Related Data Home Medications Medication Instructions Recorded Confirmed baclofen 20 mg tablet 20 mg PO QID 03/05/21 12/16/23 pyridoxine (vitamin B6) [Vitamin PO 03/05/21 12/16/23 B-6] varicella-zoster gE vac,2 of 2 50 IM 04/04/21 12/16/23 mcg IM suspension (Shingrix gE Antigen Component) clonazepam 1 mg tablet 0 mg PO 08/08/21 12/16/23 psyllium husk (aspartame) 3 g PO DAILY PRN constipation 08/08/21 12/16/23 gram/5.8 gram oral powder (Reguloid (aspartame)) lanolin alcohols-mineral appl topical BID 08/18/21 12/16/23 oil-w.petrolatum-ceresin topical cream (Minerin Creme topical) oxycodone-acetaminophen 5 mg-325 1 tab PO Q8H PRN pain 08/18/21 12/16/23 mg tablet lidocaine HCl 2 % mucosal jelly ml topical TID 03/10/22 12/16/23 naloxone 4 mg/actuation nasal spray 0 spray intranasal 11/30/22 12/16/23 lidocaine HCl 2 % mucosal jelly in ml topical 04/13/23 12/16/23 applicator ascorbic acid (vitamin C) 500 mg 1,000 mg PO DAILY 06/08/23 12/16/23 tablet (Vitamin C) phenazopyridine 100 mg tablet 100 mg PO TID 12/16/23 12/16/23 Previous Rx's Medication Instructions Recorded warfarin 3 mg tablet 3 mg PO DAILY #90 tabs 08/08/20 bisacodyl 5 mg tablet,delayed 10 mg (2 x 5 mg) PO BEDTIME 2 days 08/18/21 release (Dulcolax (bisacodyl)) #4 tabs methenamine hippurate 1 gram tablet 1 g PO DAILY 90 days #90 tabs 07/19/23 cefuroxime axetil 500 mg tablet 500 mg PO BID 7 days #13 tabs 11/14/23 cefpodoxime 100 mg tablet 100 mg PO BID #14 tabs 12/15/23 phenazopyridine 200 mg tablet 200 mg PO TID PRN dysuria 6 doses 12/15/23 #6 tabs oxybutynin chloride 5 mg tablet 5 mg PO TID PRN bladder spasms #20 12/17/23 tabs Allergies Allergy/AdvReac Type Severity Reaction Status Date / Time No Known Allergies Allergy Mild NOT Verified 12/17/23 17:43 APPLICABLE Review of Systems Review of Systems: Yes all other systems are reviewed and are negative [facility] [place] Past Medical History Medical History Paraplegia DVT (deep venous thrombosis) UTI (urinary tract infection) Hx of meningitis Renal cyst, acquired Neurogenic bladder Surgical History History of colonoscopy H/O abdominal surgery Social History Social History Patient Tobacco Use Status: Former Tobacco user Advance Directives: No Advance Directives Information Provided: No Physical Exam ED Vital Signs: Vital Signs - 24 hr 12/17/23 17:37 12/17/23 18:55 12/17/23 19:44 Temperature 97.7 F 98.4 F Pulse Rate 69 67 Respiratory Rate 20 16 16 Blood Pressure 116/62 132/68 Pulse Oximetry 100 97 Oxygen Delivery Method Room Air Room Air BMI result Body Mass Index 25.5 Const Other: The patient is awake and alert. He has a very robust looking upper body with atrophied legs. He does not appear obviously acutely ill in any way. HENMT Other: The face is symmetrical. ?Mucous membranes moist. Eyes Other: Pupils are round equal, conjunctivae are clear, extraocular movements intact Resp Effort & Inspection: normal respiratory effort Auscultation: clear to auscultation bilaterally Cardio Rate: regular rate Rhythm: regular rhythm Heart sounds: S1 normal heart sound present and S2 normal heart sound present GI Other: There is suprapubic tenderness. Other: The patient is an uncircumcised male. There is no penile discharge. No penile abnormality apparent. No scrotal tenderness. Skin Other: Skin is dry and unremarkable Neuro Other: The patient has minimal strength in his lower extremities, especially his left leg. Upper body is neurologically intact. Extrem Other: The patient's arms very well-developed. The legs are atrophied. Medications Administered Discontinued Medications Generic Name Dose Route Start Last Admin Trade Name Freq PRN Reason Stop Dose Admin Sodium Chloride 1,000 mls @ 999 mls/hr 12/17/23 18:30 12/17/23 20:26 Ns IV 12/17/23 19:30 Infused .Q1H1M KEVIN Infusion Sodium Chloride 1,000 mls @ 999 mls/hr 12/17/23 20:30 12/17/23 22:41 Ns IV 12/17/23 21:30 Infused .Q1H1M KEVIN Infusion Iohexol 85 ml 12/17/23 21:38 12/17/23 21:38 Iohexol 350 Mg/Ml 100 Ml Infus..Btl IV 12/17/23 21:39 85 ml ONCE ONE Administration Morphine Sulfate 4 mg 12/17/23 18:29 12/17/23 18:55 Morphine Sulfate 4 Mg/Ml Cartridge IVPUSH 12/17/23 18:30 4 mg ONCE ONE Administration Protocol Morphine Sulfate 4 mg 12/17/23 20:56 12/17/23 21:17 Morphine Sulfate 4 Mg/Ml Cartridge IVPUSH 12/17/23 20:57 4 mg ONCE ONE Administration Protocol Oxybutynin Chloride 5 mg 12/17/23 22:33 12/17/23 22:42 Oxybutynin Chloride Er 5 Mg Tab.Er.24 PO 12/17/23 22:34 5 mg ONCE ONE Administration Medical Decision Making Medical Decision Making [facility] Narrative: The patient is a 63-year-old male with a history of paraplegia who catheterizes himself. He has been doing this for years. He has a history of multiple UTIs. He developed dysuria 4 days ago. Three days ago he went to the [facility] and submitted a urine sample and received a dose of IM ceftriaxone. Two days ago who came to the emergency room because of ongoing dysuria and discomfort. He described being in a great deal of discomfort despite taking Percocet at home. He is on anticoagulation and so does not take NSAIDs. His urine culture at that time was growing greater than 100,000 colonies of Gram-negative rods. He was given a g of IV ceftriaxone. A CT of the abdomen and pelvis was done that was negative. Labs did not suggest systemic illness. He was given 1 gram of IV ceftriaxone and discharged on cefpodoxime. He was also prescribed phenazopyridine The patient returns today continuing to complain of suprapubic pains and dysuria not managed by phenazopyridine and Percocet he has been previously prescribed. Paramedics had reported that he was hypotensive at home but he has not hypotensive here and his labs again did not suggest any septic or systemic illness. A urinalysis today does not show any significant pyuria on microscopy. Urine dipstick was obscured by phenazopyridine. Another CT of the abdomen and pelvis still shows no acute findings. His culture at this point his final. He has grown Enterobacter cloacae. He has had a previous urine culture from November 14 which grew both Enterobacter cloacae and Klebsiella pneumonia. He is again growing Enterobacter cloaca. It is not clear whether this represents a colonization at this point. The patient's symptoms most likely are severe bladder spasms rather than anything else. Enterobacter cloacae is generally considered to be sensitive 3rd generation cephalosporins and so he will continue his current cefpodoxime which was prescribed 2 days ago. He will also be prescribed oxybutynin. He will be discharged and follow up with his urologist next week. Lab Data 12/17/23 18:12 12/17/23 18:12 Labs: Lab Results 12/17/23 12/17/23 12/17/23 Range/Units 17:36 18:12 19:36 WBC 4.6 L (4.8-10.8) X10*3/uL RBC 4.77 (4.60-5.80) X10*6/uL Hgb 13.8 L (14.0-18.0) g/dl Hct 41.6 L (42.0-52.0) % MCV 87.2 (80.0-98.0) fL MCH 28.9 (27.0-33.0) pg MCHC 33.2 (31.0-36.0) g/dl RDW 13.2 (11.0-16.0) % Plt Count 178 (160-400) X10*3/uL MPV 9.3 L (9.4-12.4) fL Immature Gran % (Auto) 0.6 H (0.0-0.4) % Neut % (Auto) 65.2 (45-73) % Lymph % (Auto) 21.9 (20-40) % [place] % (Auto) 10.6 (2-11) % Eos % (Auto) 1.3 (0-4) % Baso % (Auto) 0.4 (0-2) % Lymph # (Auto) 1.0 L (1.2-4.9) X10*3/uL [place] # (Auto) 0.5 (0.1-1.2) X10*3/uL Eos # (Auto) 0.1 (0.0-0.4) X10*3/uL Baso # (Auto) 0.0 (0.0-0.2) X10*3/uL Abs Immat Gran (auto) 0.03 (0.00-0.03) X10*3/uL Absolute Neuts (auto) 3.0 (2.0-8.3) x10*3/uL Absolute Nucleated RBC 0.000 (0.0-0.012) X10*3/uL Nucleated RBC % (auto) 0.0 (0.0-0.2) /100WBC Sodium 137 (135-145) mmol/L Potassium 3.9 (3.3-5.1) mmol/L Chloride 104 (96-108) mmol/L Carbon Dioxide 26 (22-29) mmol/L Anion Gap 11 L (12-20) BUN 15 (9-16) mg/dL Creatinine 0.75 (0.5-1.4) mg/dL Estim Creat Clear Calc 79.0 Estimated GFR > 60 POC Glucose 105 (60-115) mg/dL Random Glucose 105 (60-115) mg/dL Lactic Acid 1.3 (0.5-2.0) mmol/L Calcium 8.8 (8.4-10.2) mg/dL Magnesium 2.1 (1.6-2.6) mg/dL Total Bilirubin 0.4 (0.0-1.0) mg/dL Direct Bilirubin 0.1 (0.0-0.5) mg/dL AST 21 (5-37) U/L ALT 19 (0-40) U/L Alkaline Phosphatase 39 (39-117) U/L C-Reactive Protein < 0.10 (< or = 0.50) mg/dL Total Protein 6.3 L (6.5-8.0) g/dL Albumin 3.9 (3.5-5.0) g/dL Urine Color [place] Urine Appearance Clear Urine pH 6.5 (5.0-9.0) Ur Specific [place] 1.010 (1.005-1.025) Urine Protein See Note (Neg-Trace) mg/dL Urine Glucose (UA) See Note (Negative) mg/dL Urine Ketones See Note (Negative) mg/dL Urine Blood Negative (Negative) Urine Nitrite See Note (Negative) Ur Leukocyte Esterase See Note (Negative) Urine RBC 0-2 (0-2) /HPF Urine WBC 0-5 (0-5) /HPF Ur Squamous Epith Cells 0-2 (0-2) /HPF Urine Bacteria None Seen (None Seen) Hyaline Casts 0-2 (0-2) /LPF Discharge Plan Discharge Clinical Impression: Bladder spasms Patient Disposition: Home, Self-Care Additional Instructions: Please continue your antibiotic until it is done. I have sent a prescription for a new medication called the oxybutynin (also known as Ditropan). This medication is intended to relieve the discomfort of bladder spasms. My hope is that this medication might help relieve the symptoms you have been having. You may take this medication 3 times a day as needed for bladder spasm pain. Please call your urologist on Wednesday to make a follow up appointment to discuss these symptoms further. Return to the emergency room if worse. Prescriptions: New oxybutynin chloride 5 mg tablet 5 mg PO TID PRN (Reason: bladder spasms) Qty: 20 0RF No Action methenamine hippurate 1 gram tablet 1 g PO DAILY 90 Days Qty: 90 1RF cefuroxime axetil 500 mg tablet 500 mg PO BID 7 Days Qty: 13 0RF Rx Instructions: First dose taken on 11/14/2023 cefpodoxime 100 mg tablet 100 mg PO BID Qty: 14 0RF Rx Instructions: must administer with a meal/food phenazopyridine 200 mg tablet 200 mg PO TID PRN (Reason: dysuria) Qty: 6 0RF warfarin 3 mg tablet 3 mg PO DAILY Qty: 90 0RF Protocol: Dose Management Condition: Wednesday (Week One) Dose/Route: 3 mg Instruction: 1 x 3 mg tablet Condition: Wednesday Dose/Route: 1.5 mg Instruction: 0.5 x 3 mg tablets Condition: Wednesday Dose/Route: 3 mg Instruction: 1 x 3 mg tablet Condition: Wednesday Dose/Route: 1.5 mg Instruction: 0.5 x 3 mg tablets Condition: Dose/Route: 3 mg Instruction: 1 x 3 mg tablet Condition: Wednesday Dose/Route: 1.5 mg Instruction: 0.5 x 3 mg tablets Condition: Wednesday Dose/Route: 3 mg Instruction: 1 x 3 mg tablet Condition: Wednesday (Week Two) Dose/Route: 3 mg Instruction: 1 x 3 mg tablet Condition: Wednesday Dose/Route: 1.5 mg Instruction: 0.5 x 3 mg tablets Condition: Wednesday Dose/Route: 3 mg Instruction: 1 x 3 mg tablet Condition: Wednesday Dose/Route: 1.5 mg Instruction: 0.5 x 3 mg tablets Condition: Dose/Route: 3 mg Instruction: 1 x 3 mg tablet Condition: Wednesday Dose/Route: 1.5 mg Instruction: 0.5 x 3 mg tablets Condition: Wednesday Dose/Route: 3 mg Instruction: 1 x 3 mg tablet Protocol Text: Adjustment Start Date: Wednesday11/29/23 INR Value: 2.3 INR Date: 11/29/23 Recheck Date: 12/27/23 baclofen 20 mg tablet 20 mg PO QID pyridoxine (vitamin B6) PO Patient Comments: 1 TAB DAILY Shingrix gE Antigen Component 50 mcg suspension for reconstitution IM bisacodyl [Dulcolax (bisacodyl)] 5 mg tablet,delayed release (DR/EC) 10 mg PO BEDTIME 2 Days Qty: 4 0RF oxycodone-acetaminophen 5-325 mg tablet 1 tab PO Q8H PRN (Reason: pain) Minerin Creme Cream topical BID clonazepam 1 mg tablet 0 mg PO Reguloid (aspartame) 3 gram/5.8 gram powder PO DAILY PRN (Reason: constipation) lidocaine HCl 2 % jelly topical TID naloxone 4 mg/actuation spray,non-aerosol 0 spray intranasal ascorbic acid (vitamin C) [Vitamin C] 500 mg tablet 1,000 mg PO DAILY lidocaine HCl 2 % jelly in applicator topical phenazopyridine 100 mg tablet 100 mg PO TID Referrals: Oh Rodriguez MD [Physician] - (Bladder spasms, possible Enterobacter infection versus colonization) Interventions: ED Discharge Assessment Last Done: 12/17/23 23:20
[2023-12-17 17:56] LABS: Glucose, Whole Blood 105 mg/dL (60-115)
[2023-12-17 18:19] LABS: MANUAL DIFF FLAG NO
[2023-12-17 18:30] LABS: Lactic Acid 1.3 mmol/L (0.5-2.0)
[2023-12-17 18:34] LABS: Basophils Percent Auto 0.4 % (0-2); Eosinophils Absolute Auto 0.1 X10*3/uL (0.0-0.4); Eosinophils Percent Auto 1.3 % (0-4); Hematocrit 41.6 % (42.0-52.0); Hemoglobin 13.8 g/dl (14.0-18.0); Imm Gran Abs Auto 0.03 X10*3/uL (0.00-0.03); Imm Gran Pct Auto 0.6 % (0.0-0.4); Lymphocytes Percent Auto 21.9 % (20-40); Mean Corpuscular HGB Conc 33.2 g/dl (31.0-36.0); Mean Corpuscular Hemoglobin 28.9 pg (27.0-33.0); Mean Corpuscular Volume 87.2 fL (80.0-98.0); Mean Platelet Volume 9.3 fL (9.4-12.4); Monocytes Absolute Auto 0.5 X10*3/uL (0.1-1.2); Monocytes Percent Auto 10.6 % (2-11); Neutrophils Percent Auto 65.2 % (45-73); Platelet Count 178 X10*3/uL (160-400); Red Blood Count 4.77 X10*6/uL (4.60-5.80); Red Cell Distribution Width 13.2 % (11.0-16.0); White Blood Count 4.6 X10*3/uL (4.8-10.8)
[2023-12-17 18:35] LABS: Alanine Aminotransferase 19 U/L (0-40); Albumin Level 3.9 g/dL (3.5-5.0); Alkaline Phosphatase 39 U/L (39-117); Anion Gap 11 (12-20); Aspartate Amino Transferase 21 U/L (5-37); Bilirubin Direct 0.1 mg/dL (0.0-0.5); Bilirubin Total 0.4 mg/dL (0.0-1.0); Blood Urea Nitrogen 15 mg/dL (9-16); C Reactive Protein < 0.10 mg/dL (< or = 0.50); Calcium 8.8 mg/dL (8.4-10.2); Carbon Dioxide 26 mmol/L (22-29); Chloride 104 mmol/L (96-108); Estimated Glomerular Filt Rate > 60; Glucose Random 105 mg/dL (60-115); Magnesium 2.1 mg/dL (1.6-2.6); Potassium 3.9 mmol/L (3.3-5.1); Sodium 137 mmol/L (135-145); Total Protein 6.3 g/dL (6.5-8.0)
[2023-12-17 18:55] VITALS: RESP 16
[2023-12-17] MEDS: Morphine Sulfate 4 MG/ML CARTRIDGE IVPUSH ×2 (18:55→21:17)
[2023-12-17] MEDS: 0.9 % Sodium Chloride 1,000 ML 999 ML IV ×2 (18:56→20:26)
[2023-12-17 19:44] VITALS: BP 132/68; PULSE 67; RESP 16; TEMP 36.9; O2SAT 97
[2023-12-17 19:50] LABS: Appearance Urine Clear; Color Urine Orange; PH 6.5 (5.0-9.0); UMIC TRIGGER UACC YES; Urine Blood Negative (Negative)
[2023-12-17 20:09] LABS: Bacteria Urine None Seen (None Seen); Hyaline Casts Urine 0-2 /LPF (0-2); RBC Urine 0-2 /HPF (0-2); Squamous Epithelial Cell Urine 0-2 /HPF (0-2); WBC Urine 0-5 /HPF (0-5)
[2023-12-17] MEDS: iohexoL 350 MG/ML 100 ML INFUS..BTL 85 ML IV (21:38)
[2023-12-17] MEDS: oxyBUTYnin chloride ER 5 MG TAB.ER.24 PO (22:42)
== END 2023-12-18 00:05 | disposition home or self-care (01) ==
PROVIDERS: Emergency Provider Emergency Medicine
DX: N32.89 Other specified disorders of bladder (principal); N31.9 Neuromuscular dysfunction of bladder, unspecified; G82.20 Paraplegia, unspecified; Z86.61 Personal history of infections of the central nervous system; Z87.440 Personal history of urinary (tract) infections
CPT/HCPCS: 36415; 74177; 80048; 80076; 81001; 81003; 82947; 83605; 83735; 85025; 86140; 87040; 96361; 96374; 96376; 99285; J2270; Q9967

== ENCOUNTER 2023-12-24 10:39 | Outpatient (AMB) | payer MEDICARE, SELFPAY ==
--- NOTE | 2023-12-24 11:03 | MHC.OFFVISCO ---
Intake Intake Visit Reasons: Anticoagulation Allergies No Known Allergies Allergy (Mild, Verified 12/24/23 10:46) NOT APPLICABLE Medication List - Last Reconciled 12/24/23 by Janell Suarez RN ascorbic acid (vitamin C) (Vitamin C) 1,000 mg PO DAILY baclofen 20 mg PO QID bisacodyl (Dulcolax (bisacodyl)) 10 mg (2 x 5 mg) PO BEDTIME 2 days clonazepam 0 mg PO lanolin oxhlnyr-cl-f.pet-ceres (Minerin Creme topical) appl topical BID lidocaine HCl 2% mL topical TID lidocaine HCl 2% mL topical methenamine hippurate 1 g PO DAILY 90 days naloxone 4 mg/actuation 0 sprays intranasal oxybutynin chloride 5 mg PO TID PRN oxycodone-acetaminophen 5-325 mg 1 tab PO Q8H PRN psyllium husk (aspartame) 3 gram/5.8 gram (Reguloid (aspartame)) grams PO DAILY PRN pyridoxine (vitamin B6) (Vitamin B-6) PO varicella-zoster gE vac,2 of 2 (Shingrix gE Antigen Component) IM warfarin 3 mg See Protocol PO DAILY Nursing Note INR: 2.1 in therapeutic range s/p UTI and antbx, completed antbx and doing well now, states he was having a lot of spasms and to have urology appt. He will call with any med changes Medications and supplements reviewed Denies any signs and symptoms of bleeding or bruising or clotting. Bleeding, bruising, clotting discussed Nutritional guidance given- review food list weekly, eat a mix of fruits and vegetables Dose: resume 3mg x 4 days/ 1.5mg x 3 days F/U INR: 4 weeks Patient verbalizes understanding of instructions given Anti-Coag Initial Assessment Social Hx Patient Tobacco Use Status: Former Tobacco user Coding Level of Care Code Est Patient Level 1 Diagnoses Current use of anticoagulant therapy Z79.01 Results AMB INR Fingerstick AMB INR Fingerstick 2.1 Last Edit by Janell Suarez RN on 12/24/23 10:59 manual entry takes extra time interface failure Assessment & Plan Assessment & Plan (1) Current use of anticoagulant therapy: Code(s): 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
[2023-12-24 11:14] LABS: Prothrombin Time Whole Bld POC 25.3 sec (11.1-13.5); ~PT, ~INR - Anti Coag Clinic 2.1 (0.9-1.1)
== END 2023-12-24 11:06 | disposition home or self-care (01) ==
LOC: HO.ACS 10:39
PROVIDERS: Visit Provider Internal Medicine
DX: Z79.01 Long term (current) use of anticoagulants (principal)

== ENCOUNTER → 2023-12-24 10:39 | Outpatient (BNVA) | payer MEDICARE, SELFPAY | PROVIDERS: Visit Provider Internal Medicine | DX: I26.99 Other pulmonary embolism without acute cor pulmonale (principal); Z79.01 Long term (current) use of anticoagulants; Z51.81 Encounter for therapeutic drug level monitoring | CPT/HCPCS: 85610; 99211 ==

== ENCOUNTER 2024-01-05 14:58 | Emergency (ER) | payer MEDICARE, SELFPAY ==
--- NOTE | ~2024-01-05 | CT_ITS ---
EXAMINATION: CT ABDOMEN AND PELVIS WITH CONTRAST CLINICAL INFORMATION: Lower abdominal pain. COMPARISON: 12/17/2023 TECHNIQUE: Multidetector volumetric images were obtained from the superior aspect of the liver through the pubic symphysis following administration 85 mL of Omnipaque 350 intravenous contrast. Sagittal and coronal reformatted images were obtained on the technologist's workstation. Oral contrast: No This CT examination was performed using dose optimization techniques as appropriate, variously including the following: *Automated exposure control *Adjustment of mA and/or kV according to patient size (this includes techniques or standardized protocols for targeted exams where dose is matched to indication/reason for exam; i.e. extremities or head) *Use of iterative reconstruction technique DLP: 410 mGy-cm FINDINGS: LUNG BASES: There is scarring and/or subsegmental atelectasis at the lung bases. LIVER, GALLBLADDER, AND BILIARY TREE: The liver is normal in size, shape, and attenuation. No focal hepatic lesion or biliary ductal dilatation is present. The gallbladder is unremarkable with no evidence of radiopaque gallstones, gallbladder wall thickening, or obvious pericholecystic inflammatory changes. PANCREAS: Unremarkable. SPLEEN: Unremarkable. ADRENAL GLANDS: Unremarkable. KIDNEYS AND URETERS: The kidneys are normal in size, shape, and attenuation. No hydronephrosis, hydroureter, or calculi seen. No perinephric stranding. Numerous left cysts are again seen. BLADDER: Unremarkable. GASTROINTESTINAL TRACT: The small and large bowel are unremarkable. The appendix is unremarkable. ABDOMINAL WALL: There is coccygeal skin thickening. LYMPH NODES: Normal. VASCULAR: Unremarkable. PELVIC VISCERA: Unremarkable. OSSEOUS STRUCTURES: There is grade 1 retrolisthesis L5 over S1. There is a mild L1 compression fracture which was seen previously. CT/CT abdomen pelvis w IV con IMPRESSION: 1. No acute intra-abdominal or pelvic abnormality. 2. There is coccygeal skin thickening. Correlate with physical exam. Fleischner guidelines were followed.
[2024-01-05 15:53] VITALS: BP 120/63; PULSE 78; RESP 20; TEMP 37; O2SAT 99; BMI 26.6
--- NOTE | 2024-01-05 16:58 | ED.ABDPAIN ---
HPI - Abdominal Pain General Chief Complaint: Abdominal Pain Stated Complaint: Abd pain Time Seen by Provider: 01/05/24 23:53 Related Data Home Medications Medication Instructions Recorded Confirmed baclofen 20 mg tablet 20 mg PO QID 03/05/21 12/24/23 pyridoxine (vitamin B6) [Vitamin PO 03/05/21 12/24/23 B-6] varicella-zoster gE vac,2 of 2 50 IM 04/04/21 12/24/23 mcg IM suspension (Shingrix gE Antigen Component) clonazepam 1 mg tablet 0 mg PO 08/08/21 12/24/23 psyllium husk (aspartame) 3 g PO DAILY PRN constipation 08/08/21 12/24/23 gram/5.8 gram oral powder (Reguloid (aspartame)) lanolin alcohols-mineral appl topical BID 08/18/21 12/24/23 oil-w.petrolatum-ceresin topical cream (Minerin Creme topical) oxycodone-acetaminophen 5 mg-325 1 tab PO Q8H PRN pain 08/18/21 12/24/23 mg tablet lidocaine HCl 2 % mucosal jelly ml topical TID 03/10/22 12/24/23 naloxone 4 mg/actuation nasal spray 0 spray intranasal 11/30/22 12/24/23 lidocaine HCl 2 % mucosal jelly in ml topical 04/13/23 12/24/23 applicator ascorbic acid (vitamin C) 500 mg 1,000 mg PO DAILY 06/08/23 12/24/23 tablet (Vitamin C) Previous Rx's Medication Instructions Recorded warfarin 3 mg tablet 3 mg PO DAILY #90 tabs 08/08/20 bisacodyl 5 mg tablet,delayed 10 mg (2 x 5 mg) PO BEDTIME 2 days 08/18/21 release (Dulcolax (bisacodyl)) #4 tabs methenamine hippurate 1 gram tablet 1 g PO DAILY 90 days #90 tabs 07/19/23 oxybutynin chloride 5 mg tablet 5 mg PO TID PRN bladder spasms #20 12/17/23 tabs Allergies Allergy/AdvReac Type Severity Reaction Status Date / Time No Known Allergies Allergy Mild NOT Verified 01/05/24 15:58 APPLICABLE [facility] Past Medical History Medical History Paraplegia DVT (deep venous thrombosis) UTI (urinary tract infection) Hx of meningitis Renal cyst, acquired Neurogenic bladder Surgical History History of colonoscopy H/O abdominal surgery Social History Social History Patient Tobacco Use Status: Former Tobacco user Advance Directives: No Advance Directives Information Provided: Yes Physical Exam ED Vital Signs: Vital Signs - 24 hr 01/05/24 15:53 01/05/24 20:59 01/05/24 21:00 Temperature 98.6 F 98.1 F 96.8 F Pulse Rate 78 72 65 Respiratory Rate 20 20 20 Blood Pressure 120/63 110/58 L 114/68 Pulse Oximetry 99 97 98 Oxygen Delivery Method Room Air Room Air Room Air 01/06/24 00:39 Temperature 98.4 F Pulse Rate 59 Respiratory Rate 16 Blood Pressure 104/61 Pulse Oximetry 98 Oxygen Delivery Method Room Air BMI result Body Mass Index 26.6 Course Course Course Narrative: This is an RME: Additional HPI, ROS, PE not included below will be deferred to primary provider. This is a 63-year-old male presenting to the emergency department with complaints of left lower abdominal pain that radiates into his right lower abdominal region. He states that the pain has been constant for the last 3 days. Denies any shortness of breath, chest pain. Mild tenderness palpation along the entire abdomen without any point tenderness. Patient appears comfortable, vital signs within normal limits. Further ER evaluation needed. Plan: Labs, UA, further ER evaluation needed Medical Decision Making Lab Data 01/05/24 18:39 01/05/24 18:39 Labs: Lab Results 01/05/24 01/06/24 Range/Units 18:39 00:37 WBC 5.8 (4.8-10.8) X10*3/uL RBC 5.16 (4.60-5.80) X10*6/uL Hgb 14.7 (14.0-18.0) g/dl Hct 44.1 (42.0-52.0) % MCV 85.5 (80.0-98.0) fL MCH 28.5 (27.0-33.0) pg MCHC 33.3 (31.0-36.0) g/dl RDW 13.1 (11.0-16.0) % Plt Count 195 (160-400) X10*3/uL MPV 9.5 (9.4-12.4) fL Immature Gran % (Auto) 0.3 (0.0-0.4) % Neut % (Auto) 63.4 (45-73) % Lymph % (Auto) 23.7 (20-40) % [place] % (Auto) 11.4 H (2-11) % Eos % (Auto) 1.0 (0-4) % Baso % (Auto) 0.2 (0-2) % Lymph # (Auto) 1.4 (1.2-4.9) X10*3/uL [place] # (Auto) 0.7 (0.1-1.2) X10*3/uL Eos # (Auto) 0.1 (0.0-0.4) X10*3/uL Baso # (Auto) 0.0 (0.0-0.2) X10*3/uL Abs Immat Gran (auto) 0.02 (0.00-0.03) X10*3/uL Absolute Neuts (auto) 3.7 (2.0-8.3) x10*3/uL Absolute Nucleated RBC 0.000 (0.0-0.012) X10*3/uL Nucleated RBC % (auto) 0.0 (0.0-0.2) /100WBC PT 32.8 H (11.1-13.3) SEC INR 2.7 H (0.9-1.1) Sodium 134 L (135-145) mmol/L Potassium 4.1 (3.3-5.1) mmol/L Chloride 102 (96-108) mmol/L Carbon Dioxide 24 (22-29) mmol/L Anion Gap 12 (12-20) BUN 13 (9-16) mg/dL Creatinine 0.64 (0.5-1.4) mg/dL Estim Creat Clear Calc 103.8 Estimated GFR > 60 Random Glucose 91 (60-115) mg/dL Calcium 8.9 (8.4-10.2) mg/dL Magnesium 2.0 (1.6-2.6) mg/dL Total Bilirubin 0.5 (0.0-1.0) mg/dL Direct Bilirubin 0.2 (0.0-0.5) mg/dL AST 22 (5-37) U/L ALT 26 (0-40) U/L Alkaline Phosphatase 49 (39-117) U/L Troponin I High Sens < 2.7 (<3.5-35.0) ng/L Total Protein 6.9 (6.5-8.0) g/dL Albumin 4.4 (3.5-5.0) g/dL Lipase 14 (8-78) U/L Urine Color Yellow Urine Appearance Clear Urine pH 7.0 (5.0-9.0) Ur Specific [place] 1.015 (1.005-1.025) Urine Protein Negative (Neg-Trace) mg/dL Urine Glucose (UA) Negative (Negative) mg/dL Urine Ketones Negative (Negative) mg/dL Urine Blood Negative (Negative) Urine Nitrite Negative (Negative) Ur Leukocyte Esterase Trace H (Negative) Urine RBC 0-2 (0-2) /HPF Urine WBC 6-10 H (0-5) /HPF Ur Squamous Epith Cells 0-2 (0-2) /HPF Urine Bacteria 1+ (None Seen) Hyaline Casts 0-2 (0-2) /LPF Medications Administered Discontinued Medications Generic Name Dose Route Start Last Admin Trade Name Isrealq PRN Reason Stop Dose Admin Hydromorphone HCl 0.5 mg 01/06/24 01:24 01/06/24 01:40 Hydromorphone Hcl 0.5 Mg/0.5 Ml Syringe IVPUSH 01/06/24 01:25 0.5 mg ONCE ONE Administration Protocol Sodium Chloride 1,000 mls @ 999 mls/hr 01/06/24 00:30 01/06/24 01:40 Ns IV 01/06/24 01:30 999 mls/hr .Q1H1M KEVIN Administration Iohexol 85 ml 01/06/24 00:54 01/06/24 00:55 Iohexol 350 Mg/Ml 100 Ml Infus..Btl IV 01/06/24 00:55 85 ml ONCE ONE Administration Ondansetron HCl 4 mg 01/06/24 00:19 01/06/24 01:40 Ondansetron Hcl 4 Mg/2 Ml Vial IVPUSH 01/06/24 00:20 4 mg ONCE ONE Administration Discharge Plan Discharge Clinical Impression: Abdominal pain Patient Disposition: Home, Self-Care Instructions: Abdominal Pain (ED) Prescriptions: No Action methenamine hippurate 1 gram tablet 1 g PO DAILY 90 Days Qty: 90 1RF oxybutynin chloride 5 mg tablet 5 mg PO TID PRN (Reason: bladder spasms) Qty: 20 0RF warfarin 3 mg tablet 3 mg PO DAILY Qty: 90 0RF Protocol: Dose Management Condition: Wednesday (Week One) Dose/Route: 3 mg Instruction: 1 x 3 mg tablet Condition: Wednesday Dose/Route: 1.5 mg Instruction: 0.5 x 3 mg tablets Condition: Wednesday Dose/Route: 3 mg Instruction: 1 x 3 mg tablet Condition: Wednesday Dose/Route: 1.5 mg Instruction: 0.5 x 3 mg tablets Condition: Dose/Route: 3 mg Instruction: 1 x 3 mg tablet Condition: Wednesday Dose/Route: 1.5 mg Instruction: 0.5 x 3 mg tablets Condition: Wednesday Dose/Route: 3 mg Instruction: 1 x 3 mg tablet Condition: Wednesday (Week Two) Dose/Route: 3 mg Instruction: 1 x 3 mg tablet Condition: Wednesday Dose/Route: 1.5 mg Instruction: 0.5 x 3 mg tablets Condition: Wednesday Dose/Route: 3 mg Instruction: 1 x 3 mg tablet Condition: Wednesday Dose/Route: 1.5 mg Instruction: 0.5 x 3 mg tablets Condition: Dose/Route: 3 mg Instruction: 1 x 3 mg tablet Condition: Wednesday Dose/Route: 1.5 mg Instruction: 0.5 x 3 mg tablets Condition: Wednesday Dose/Route: 3 mg Instruction: 1 x 3 mg tablet Protocol Text: Adjustment Start Date: Wednesday12/24/23 INR Value: 2.3 INR Date: 11/29/23 Recheck Date: 01/21/24 Additional Instructions: Revisar la lista de alimentos semanalmente, comer josette mezcla de frutas y verduras. baclofen 20 mg tablet 20 mg PO QID pyridoxine (vitamin B6) PO Patient Comments: 1 TAB DAILY Shingrix gE Antigen Component 50 mcg suspension for reconstitution IM bisacodyl [Dulcolax (bisacodyl)] 5 mg tablet,delayed release (DR/EC) 10 mg PO BEDTIME 2 Days Qty: 4 0RF oxycodone-acetaminophen 5-325 mg tablet 1 tab PO Q8H PRN (Reason: pain) Minerin Creme Cream topical BID clonazepam 1 mg tablet 0 mg PO Reguloid (aspartame) 3 gram/5.8 gram powder PO DAILY PRN (Reason: constipation) lidocaine HCl 2 % jelly topical TID naloxone 4 mg/actuation spray,non-aerosol 0 spray intranasal ascorbic acid (vitamin C) [Vitamin C] 500 mg tablet 1,000 mg PO DAILY lidocaine HCl 2 % jelly in applicator topical Referrals: Kaylah Foley MD [Primary Care Provider] - 01/10/24 Print Language: Ukrainian
[2024-01-05 18:48] LABS: MANUAL DIFF FLAG NO
[2024-01-05 18:50] LABS: Basophils Percent Auto 0.2 % (0-2); Eosinophils Absolute Auto 0.1 X10*3/uL (0.0-0.4); Hematocrit 44.1 % (42.0-52.0); Hemoglobin 14.7 g/dl (14.0-18.0); Imm Gran Abs Auto 0.02 X10*3/uL (0.00-0.03); Imm Gran Pct Auto 0.3 % (0.0-0.4); Lymphocytes Absolute Auto 1.4 X10*3/uL (1.2-4.9); Lymphocytes Percent Auto 23.7 % (20-40); Mean Corpuscular HGB Conc 33.3 g/dl (31.0-36.0); Mean Corpuscular Hemoglobin 28.5 pg (27.0-33.0); Mean Corpuscular Volume 85.5 fL (80.0-98.0); Mean Platelet Volume 9.5 fL (9.4-12.4); Monocytes Absolute Auto 0.7 X10*3/uL (0.1-1.2); Monocytes Percent Auto 11.4 % (2-11); Neutrophils Absolute Auto 3.7 x10*3/uL (2.0-8.3); Neutrophils Percent Auto 63.4 % (45-73); Platelet Count 195 X10*3/uL (160-400); Red Blood Count 5.16 X10*6/uL (4.60-5.80); Red Cell Distribution Width 13.1 % (11.0-16.0); White Blood Count 5.8 X10*3/uL (4.8-10.8)
[2024-01-05 18:53] LABS: Appearance Urine Clear; Color Urine Yellow; Glucose Urine UA Negative (Negative); Leukocyte Esterase Urine Trace (Negative); Nitrite Urine Negative (Negative); Specific Gravity - Urine 1.015 (1.005-1.025); UMIC TRIGGER UACC YES; Urine Blood Negative (Negative); Urine Ketones Negative (Negative); Urine Protein Negative (Neg-Trace)
[2024-01-05 18:58] LABS: Bacteria Urine 1+ (None Seen); Hyaline Casts Urine 0-2 /LPF (0-2); RBC Urine 0-2 /HPF (0-2); Squamous Epithelial Cell Urine 0-2 /HPF (0-2); UACC Culture Trigger YES
[2024-01-05 19:13] LABS: Alanine Aminotransferase 26 U/L (0-40); Albumin Level 4.4 g/dL (3.5-5.0); Alkaline Phosphatase 49 U/L (39-117); Anion Gap 12 (12-20); Aspartate Amino Transferase 22 U/L (5-37); Bilirubin Direct 0.2 mg/dL (0.0-0.5); Bilirubin Total 0.5 mg/dL (0.0-1.0); Blood Urea Nitrogen 13 mg/dL (9-16); Calcium 8.9 mg/dL (8.4-10.2); Carbon Dioxide 24 mmol/L (22-29); Chloride 102 mmol/L (96-108); Creatinine Clr Calc Pharmacy 103.8; Estimated Glomerular Filt Rate > 60; Glucose Random 91 mg/dL (60-115); Lipase 14 U/L (8-78); Potassium 4.1 mmol/L (3.3-5.1); Sodium 134 mmol/L (135-145); Total Protein 6.9 g/dL (6.5-8.0)
[2024-01-05 19:15] LABS: Troponin-I High Sensitivity < 2.7 ng/L (<3.5-35.0)
[2024-01-05 20:59] VITALS: BP 110/58; PULSE 72; RESP 20; TEMP 36.7; O2SAT 97
[2024-01-05 21:00] VITALS: BP 114/68; PULSE 65; RESP 20; TEMP 36; O2SAT 98
--- NOTE | 2024-01-06 00:29 | ED_ITS ---
HPI - Abdominal Pain General Chief Complaint: Abdominal Pain Stated Complaint: Abd pain Time Seen by Provider: 01/05/24 23:53 History of Present Illness HPI narrative: Patient is a 63-year-old male with a history of neurogenic bowel bladder history of meningitis left him with weakness to bilateral lower extremity sensation to the abdomen is intact patient complaining of lower abdominal pain. Not associated with nausea vomiting. Very similar to previous bouts. He usually self caths has a history of neurogenic bladder has recurrent urinary tract infections. Currently on Coumadin. Patient denies any nausea or vomiting. No chest pain. No diaphoresis. Has a history of having a pump put in for back spasms. Related Data Home Medications Medication Instructions Recorded Confirmed baclofen 20 mg tablet 20 mg PO QID 03/05/21 12/24/23 pyridoxine (vitamin B6) [Vitamin PO 03/05/21 12/24/23 B-6] varicella-zoster gE vac,2 of 2 50 IM 04/04/21 12/24/23 mcg IM suspension (Shingrix gE Antigen Component) clonazepam 1 mg tablet 0 mg PO 08/08/21 12/24/23 psyllium husk (aspartame) 3 g PO DAILY PRN constipation 08/08/21 12/24/23 gram/5.8 gram oral powder (Reguloid (aspartame)) lanolin alcohols-mineral appl topical BID 08/18/21 12/24/23 oil-w.petrolatum-ceresin topical cream (Minerin Creme topical) oxycodone-acetaminophen 5 mg-325 1 tab PO Q8H PRN pain 08/18/21 12/24/23 mg tablet lidocaine HCl 2 % mucosal jelly ml topical TID 03/10/22 12/24/23 naloxone 4 mg/actuation nasal spray 0 spray intranasal 11/30/22 12/24/23 lidocaine HCl 2 % mucosal jelly in ml topical 04/13/23 12/24/23 applicator ascorbic acid (vitamin C) 500 mg 1,000 mg PO DAILY 06/08/23 12/24/23 tablet (Vitamin C) Previous Rx's Medication Instructions Recorded warfarin 3 mg tablet 3 mg PO DAILY #90 tabs 08/08/20 bisacodyl 5 mg tablet,delayed 10 mg (2 x 5 mg) PO BEDTIME 2 days 08/18/21 release (Dulcolax (bisacodyl)) #4 tabs methenamine hippurate 1 gram tablet 1 g PO DAILY 90 days #90 tabs 07/19/23 oxybutynin chloride 5 mg tablet 5 mg PO TID PRN bladder spasms #20 12/17/23 tabs Allergies Allergy/AdvReac Type Severity Reaction Status Date / Time No Known Allergies Allergy Mild NOT Verified 01/05/24 15:58 APPLICABLE Review of Systems Review of Systems Positive abdominal pain Yes all other systems are reviewed and are negative PMFSH Past Medical History Attestation statement: The following information was validated with the patient. Source: unable to obtain Medical History Paraplegia DVT (deep venous thrombosis) UTI (urinary tract infection) Hx of meningitis Renal cyst, acquired Neurogenic bladder Surgical History History of colonoscopy H/O abdominal surgery Social History Social History Patient Tobacco Use Status: Former Tobacco user Advance Directives: No Advance Directives Information Provided: Yes Physical Exam ED Vital Signs: Vital Signs - 24 hr 01/05/24 15:53 01/05/24 20:59 01/05/24 21:00 Temperature 98.6 F 98.1 F 96.8 F Pulse Rate 78 72 65 Respiratory Rate 20 20 20 Blood Pressure 120/63 110/58 L 114/68 Pulse Oximetry 99 97 98 Oxygen Delivery Method Room Air Room Air Room Air 01/06/24 00:39 Temperature 98.4 F Pulse Rate 59 Respiratory Rate 16 Blood Pressure 104/61 Pulse Oximetry 98 Oxygen Delivery Method Room Air BMI result Body Mass Index 26.6 Appearance: Alert. Oriented X3. No acute distress. Eyes: Pupils equal, round and reactive to light. ENT: Pharynx normal. Neck: Normal inspection. Neck supple. No lymph nodes noted. No crepitus CVS: Normal heart rate and rhythm. Pulses normal. Normal S1 and S2 Respiratory: No respiratory distress. Breath sounds normal. No Wheezing. No rales Abdomen: Soft and nontender. No rigidity. No distention. good BS x4. Pump in place. Skin: Skin warm and dry. Normal skin color. Normal skin turgor. Extremities: No lower extremity edema. Neurovascular intact to all extremities. No Lacerations. No Rash Neuro: Oriented X 3. Limited movement of bilateral lower extremity. Sensation diminished bilateral lower extremity. Capillary refill less than 2 seconds. Medical Decision Making Medical Decision Making [facility] Narrative: 63-year-old male presented today with having lower abdominal pain. Patient's urine showed no gross infection. Has pain mostly over the left side. Radiating over to the right abdomen. CT scan of the abdomen pelvis showed no acute obstruction no abscess no perforation. No evidence for diverticulitis. Patient's INR is therapeutic. There is no hematoma noted in the abdomen. Differential Diagnosis Differential Diagnoses: The differential diagnosis associated with the presentation includes Obstruction, diverticulitis, appendicitis, kidney stone, UTI Admission/Observation Consideration of admission/observation: Escalation of care including admission/observation considered Lab Data [facility] Lab Attestation statement: I reviewed the patient's lab results. 01/05/24 18:39 01/05/24 18:39 Labs: Lab Results 01/05/24 01/06/24 Range/Units 18:39 00:37 WBC 5.8 (4.8-10.8) X10*3/uL RBC 5.16 (4.60-5.80) X10*6/uL Hgb 14.7 (14.0-18.0) g/dl Hct 44.1 (42.0-52.0) % MCV 85.5 (80.0-98.0) fL MCH 28.5 (27.0-33.0) pg MCHC 33.3 (31.0-36.0) g/dl RDW 13.1 (11.0-16.0) % Plt Count 195 (160-400) X10*3/uL MPV 9.5 (9.4-12.4) fL Immature Gran % (Auto) 0.3 (0.0-0.4) % Neut % (Auto) 63.4 (45-73) % Lymph % (Auto) 23.7 (20-40) % [place] % (Auto) 11.4 H (2-11) % Eos % (Auto) 1.0 (0-4) % Baso % (Auto) 0.2 (0-2) % Lymph # (Auto) 1.4 (1.2-4.9) X10*3/uL [place] # (Auto) 0.7 (0.1-1.2) X10*3/uL Eos # (Auto) 0.1 (0.0-0.4) X10*3/uL Baso # (Auto) 0.0 (0.0-0.2) X10*3/uL Abs Immat Gran (auto) 0.02 (0.00-0.03) X10*3/uL Absolute Neuts (auto) 3.7 (2.0-8.3) x10*3/uL Absolute Nucleated RBC 0.000 (0.0-0.012) X10*3/uL Nucleated RBC % (auto) 0.0 (0.0-0.2) /100WBC PT 32.8 H (11.1-13.3) SEC INR 2.7 H (0.9-1.1) Sodium 134 L (135-145) mmol/L Potassium 4.1 (3.3-5.1) mmol/L Chloride 102 (96-108) mmol/L Carbon Dioxide 24 (22-29) mmol/L Anion Gap 12 (12-20) BUN 13 (9-16) mg/dL Creatinine 0.64 (0.5-1.4) mg/dL Estim Creat Clear Calc 103.8 Estimated GFR > 60 Random Glucose 91 (60-115) mg/dL Calcium 8.9 (8.4-10.2) mg/dL Magnesium 2.0 (1.6-2.6) mg/dL Total Bilirubin 0.5 (0.0-1.0) mg/dL Direct Bilirubin 0.2 (0.0-0.5) mg/dL AST 22 (5-37) U/L ALT 26 (0-40) U/L Alkaline Phosphatase 49 (39-117) U/L Troponin I High Sens < 2.7 (<3.5-35.0) ng/L Total Protein 6.9 (6.5-8.0) g/dL Albumin 4.4 (3.5-5.0) g/dL Lipase 14 (8-78) U/L Urine Color Yellow Urine Appearance Clear Urine pH 7.0 (5.0-9.0) Ur Specific [place] 1.015 (1.005-1.025) Urine Protein Negative (Neg-Trace) mg/dL Urine Glucose (UA) Negative (Negative) mg/dL Urine Ketones Negative (Negative) mg/dL Urine Blood Negative (Negative) Urine Nitrite Negative (Negative) Ur Leukocyte Esterase Trace H (Negative) Urine RBC 0-2 (0-2) /HPF Urine WBC 6-10 H (0-5) /HPF Ur Squamous Epith Cells 0-2 (0-2) /HPF Urine Bacteria 1+ (None Seen) Hyaline Casts 0-2 (0-2) /LPF Radiology Impression Discussion of test interpretation with radiology: I have reviewed the radiologist's reading. External Record Review External record reviewed: Inpatient record Chronic Conditions History of meningitis now has weakness to the lower extremity Social Determinants Patient?s care significantly limited by Social Determinants of Health including: Problems related to primary support group and Unemployment Medications Administered Discontinued Medications Generic Name Dose Route Start Last Admin Trade Name Freq PRN Reason Stop Dose Admin Hydromorphone HCl 0.5 mg 01/06/24 01:24 01/06/24 01:40 Hydromorphone Hcl 0.5 Mg/0.5 Ml Syringe IVPUSH 01/06/24 01:25 0.5 mg ONCE ONE Administration Protocol Sodium Chloride 1,000 mls @ 999 mls/hr 01/06/24 00:30 01/06/24 01:40 Ns IV 01/06/24 01:30 999 mls/hr .Q1H1M KEVIN Administration Iohexol 85 ml 01/06/24 00:54 01/06/24 00:55 Iohexol 350 Mg/Ml 100 Ml Infus..Btl IV 01/06/24 00:55 85 ml ONCE ONE Administration Ondansetron HCl 4 mg 01/06/24 00:19 01/06/24 01:40 Ondansetron Hcl 4 Mg/2 Ml Vial IVPUSH 01/06/24 00:20 4 mg ONCE ONE Administration Discharge Plan Discharge Clinical Impression: Abdominal pain Patient Disposition: Home, Self-Care Instructions: Abdominal Pain (ED) Prescriptions: No Action methenamine hippurate 1 gram tablet 1 g PO DAILY 90 Days Qty: 90 1RF oxybutynin chloride 5 mg tablet 5 mg PO TID PRN (Reason: bladder spasms) Qty: 20 0RF warfarin 3 mg tablet 3 mg PO DAILY Qty: 90 0RF Protocol: Dose Management Condition: Wednesday (Week One) Dose/Route: 3 mg Instruction: 1 x 3 mg tablet Condition: Wednesday Dose/Route: 1.5 mg Instruction: 0.5 x 3 mg tablets Condition: Wednesday Dose/Route: 3 mg Instruction: 1 x 3 mg tablet Condition: Wednesday Dose/Route: 1.5 mg Instruction: 0.5 x 3 mg tablets Condition: Dose/Route: 3 mg Instruction: 1 x 3 mg tablet Condition: Wednesday Dose/Route: 1.5 mg Instruction: 0.5 x 3 mg tablets Condition: Wednesday Dose/Route: 3 mg Instruction: 1 x 3 mg tablet Condition: Wednesday ( Two) Dose/Route: 3 mg Instruction: 1 x 3 mg tablet Condition: Wednesday Dose/Route: 1.5 mg Instruction: 0.5 x 3 mg tablets Condition: Wednesday Dose/Route: 3 mg Instruction: 1 x 3 mg tablet Condition: Wednesday Dose/Route: 1.5 mg Instruction: 0.5 x 3 mg tablets Condition: Dose/Route: 3 mg Instruction: 1 x 3 mg tablet Condition: Wednesday Dose/Route: 1.5 mg Instruction: 0.5 x 3 mg tablets Condition: Wednesday Dose/Route: 3 mg Instruction: 1 x 3 mg tablet Protocol Text: Adjustment Start Date: Wednesday12/24/23 INR Value: 2.3 INR Date: 11/29/23 Recheck Date: 01/21/24 Additional Instructions: Revisar la lista de alimentos semanalmente, comer josette mezcla de frutas y verduras. baclofen 20 mg tablet 20 mg PO QID pyridoxine (vitamin B6) PO Patient Comments: 1 TAB DAILY Shingrix gE Antigen Component 50 mcg suspension for reconstitution IM bisacodyl [Dulcolax (bisacodyl)] 5 mg tablet,delayed release (DR/EC) 10 mg PO BEDTIME 2 Days Qty: 4 0RF oxycodone-acetaminophen 5-325 mg tablet 1 tab PO Q8H PRN (Reason: pain) Minerin Creme Cream topical BID clonazepam 1 mg tablet 0 mg PO Reguloid (aspartame) 3 gram/5.8 gram powder PO DAILY PRN (Reason: constipation) lidocaine HCl 2 % jelly topical TID naloxone 4 mg/actuation spray,non-aerosol 0 spray intranasal ascorbic acid (vitamin C) [Vitamin C] 500 mg tablet 1,000 mg PO DAILY lidocaine HCl 2 % jelly in applicator topical Referrals: Kaylah Foley MD [Primary Care Provider] - 01/10/24 Print Language: Slovenian
[2024-01-06 00:39] VITALS: BP 104/61; PULSE 59; RESP 16; TEMP 36.9; O2SAT 98
[2024-01-06] MEDS: iohexoL 350 MG/ML 100 ML INFUS..BTL 85 ML IV (00:55)
[2024-01-06 00:56] LABS: INTERNATIONAL NORM RATIO 2.7 (0.9-1.1); Prothrombin Time 32.8 SEC (11.1-13.3)
[2024-01-06] MEDS: HYDROmorphone HCl 0.5 MG/0.5 ML SYRINGE IVPUSH (01:40)
[2024-01-06] MEDS: ondansetron HCL 4 MG/2 ML VIAL IVPUSH (01:40)
[2024-01-06] MEDS: 0.9 % Sodium Chloride 1,000 ML 999 ML IV (01:40)
[2024-01-06 02:58] VITALS: BP 124/57; PULSE 69; RESP 16; TEMP 36.6; O2SAT 99
[2024-01-06 02:59] VITALS: BP 124/57; PULSE 69; RESP 16; TEMP 36.6; O2SAT 99
== END 2024-01-06 03:01 | disposition home or self-care (01) ==
PROVIDERS: Physician Assistant Medical; Emergency Provider Emergency Medicine Emergency Medical Services; PCP Internal Medicine
DX: R10.30 Lower abdominal pain, unspecified (principal); Z79.899 Other long term (current) drug therapy
CPT/HCPCS: 36415; 74177; 80048; 80076; 81001; 83690; 83735; 84484; 85025; 85610; 87086; 87088; 87186; 96374; 96375; 99284; J1170; J2405; Q9967

== ENCOUNTER 2024-01-10 17:59 | Outpatient (REF) | payer MEDICARE, SELFPAY | END 2024-01-10 18:00 | disposition home or self-care (01) | LOC: HO.HHCLNP 17:59 | PROVIDERS: Visit Provider Family Medicine | DX: R10.30 Lower abdominal pain, unspecified (principal) | CPT/HCPCS: 87086; 87088; 87186 ==

== ENCOUNTER → 2024-01-17 16:14 | Outpatient (BNVA) | payer MEDICARE, SELFPAY | PROVIDERS: PCP Internal Medicine; Visit Provider Internal Medicine ==

== ENCOUNTER 2024-01-21 10:42 | Outpatient (AMB) | payer MEDICARE, SELFPAY ==
[2024-01-21 10:52] LABS: Prothrombin Time Whole Bld POC 31.3 sec (11.1-13.5); ~PT, ~INR - Anti Coag Clinic 2.6 (0.9-1.1)
--- NOTE | 2024-01-21 11:07 | MHC.OFFVISCO ---
Intake Intake Visit Reasons: Anticoagulation Allergies No Known Allergies Allergy (Mild, Verified 01/21/24 10:44) NOT APPLICABLE Medication List - Last Reconciled 01/21/24 by Janell Suarez RN ascorbic acid (vitamin C) (Vitamin C) 1,000 mg PO DAILY baclofen pump orally per md lazar for pump; bisacodyl (Dulcolax (bisacodyl)) 10 mg (2 x 5 mg) PO BEDTIME 2 days clonazepam 0 mg PO lanolin [id number]-yz-[id number].pet-ceres (Minerin Creme topical) appl topical BID levofloxacin 750 mg PO DAILY lidocaine HCl 2% mL topical TID lidocaine HCl 2% mL topical methenamine hippurate 1 g PO DAILY 90 days naloxone 4 mg/actuation 0 sprays intranasal oxybutynin chloride 5 mg PO TID PRN oxycodone-acetaminophen 5-325 mg 1 tab PO Q8H PRN polyethylene glycol 3350 (Gavilax) grams PO psyllium husk (aspartame) 3 gram/5.8 gram (Reguloid (aspartame)) grams PO DAILY PRN pyridoxine (vitamin B6) (Vitamin B-6) PO varicella-zoster gE vac,2 of 2 (Shingrix gE Antigen Component) IM warfarin 3 mg See Protocol PO DAILY Nursing Note INR: 2.6 in therapeutic range Medications and supplements reviewed He complete and antbx for UTI - feeling better now To have colonocoscopy 02/23/24 - instructions for holding warfarin and if he needs a lovenox bridge is pending, msg sent to Estelle Ornelas NP for instructions for holding He is back on his baclofen pump - no po baclofen, he is taking oxybutin for bladder - NO WARFARIN INTERACTION Denies any signs and symptoms of bleeding or bruising or clotting. Bleeding, bruising, clotting discussed Nutritional guidance given eat a mix of fruits and vegetables - making sure to eat enough greens Dose: resume usual dose 3mg x 4 days/ 1.5mg mwf F/U INR: 4 weeks / 5 days prior colonoscopy - will give pt instructions next visit Patient verbalizes understanding of instructions given PCP and Gi notified rquesting #of days to hold warfarin and if loevnox brdige required. response pending hold days per GI Anti-Coag Initial Assessment Social Hx Patient Tobacco Use Status: Former Tobacco user Alcohol intake frequency: does not drink Coding Level of Care Code Est Patient Level 1 Diagnoses Current use of anticoagulant therapy Z79.01 Assessment & Plan Assessment & Plan (1) Current use of anticoagulant therapy: Code(s): Z79.01 - technician terminal and repeater (current) use of anticoagulants Category: Medical
== END 2024-01-21 11:13 | disposition home or self-care (01) ==
LOC: HO.ACS 10:42
PROVIDERS: PCP Internal Medicine; Visit Provider Internal Medicine
DX: Z79.01 Long term (current) use of anticoagulants (principal)

== ENCOUNTER → 2024-01-21 10:42 | Outpatient (BNVA) | payer MEDICARE, SELFPAY | PROVIDERS: PCP Internal Medicine; Visit Provider Internal Medicine | DX: I26.99 Other pulmonary embolism without acute cor pulmonale (principal); Z79.01 Long term (current) use of anticoagulants; Z51.81 Encounter for therapeutic drug level monitoring | CPT/HCPCS: 85610; 99211 ==

== ENCOUNTER 2024-01-25 10:28 | Outpatient (AMB) | payer MEDICARE, SELFPAY ==
--- NOTE | 2024-01-25 10:36 | MHC.OFFVIS ---
Intake Intake Visit Reasons: UTI/bladder spasms (confirmed) Intake Note: Patient is Present for Follow Up Urology Medication: Oxybutynin, Vitamin B6 Antibiotic Allergies: None Blood Thinners: Warfarin Pharmacy: [facility] Patient states that he started antibiotics on 01/14/24 Levofloxacin reports no symptoms of infection Allergies No Known Allergies Allergy (Mild, Verified 01/21/24 10:44) NOT APPLICABLE Medication List - Last Reconciled 01/25/24 by Oh Rodriguez MD ascorbic acid (vitamin C) (Vitamin C) 1,000 mg (2 x 500 mg) PO DAILY 90 days baclofen pump orally per md lazar for pump; bisacodyl (Dulcolax (bisacodyl)) 10 mg (2 x 5 mg) PO BEDTIME 2 days clonazepam 0 mg PO lanolin jheciwv-ds-v.pet-ceres (Minerin Creme topical) appl topical BID levofloxacin 750 mg PO DAILY 5 days lidocaine HCl 2% mL topical TID lidocaine HCl 2% mL topical methenamine hippurate 1 g PO DAILY 90 days naloxone 4 mg/actuation 0 sprays intranasal oxybutynin chloride 5 mg PO TID PRN oxybutynin chloride ER 5 mg PO DAILY 30 days oxycodone-acetaminophen 5-325 mg 1 tab PO Q8H PRN polyethylene glycol 3350 (Gavilax) grams PO psyllium husk (aspartame) 3 gram/5.8 gram (Reguloid (aspartame)) grams PO DAILY PRN pyridoxine (vitamin B6) (Vitamin B-6) PO varicella-zoster gE vac,2 of 2 (Shingrix gE Antigen Component) IM warfarin 3 mg See Protocol PO DAILY HPI HPI Comments History of Present Illness Details Erasmo is a very pleasant male. He is a patient of . He is seen for the following urologic conditions - neurogenic bladder - requires clean intermittent catheterization Swedish translation provided by qualified bilingual medical assistant Neurogenic bladder Has had 2 UTIs since last visit Will give self starter Levaquin Also states has bladder spasm Trial of overactive bladder medication Two month follow-up tele Neurogenic bladder Clean intermittent catheterization 4-5 times per day - straight catheter no coude - will require self catheterization for the foreseeable future Does have occasional UTI Prior ultrasound with renal cysts on left kidney Procedure - 07/09 TUIP PSA 2020 0.8 Infection protection start vitamin C and methanamine [facility] Medical History Paraplegia DVT (deep venous thrombosis) UTI (urinary tract infection) Hx of meningitis Renal cyst, acquired Neurogenic bladder Surgical History History of colonoscopy H/O abdominal surgery Social History Patient Tobacco Use Status: Former Tobacco user Review of Systems Const Denies chills and Denies fever(s) Card Reports no additional complaints and Denies syncope Resp Denies cough GI Denies abdominal pain and Denies heartburn Reports as per HPI and Denies change in libido Neuro Denies syncope Psych Denies change in libido Endo Denies change in libido Physical Exam Const General: cooperative, healthy appearing, comfortable and no acute distress Orientation/consciousness: patient oriented x3 HEENT Face and sinus: Yes normal facial exam Mouth: moist mucous membranes Neck Neck: Yes normal visual inspection, Yes full ROM and Yes trachea midline Chest Chest palpation & inspection: normal inspection of the chest Resp Effort & Inspection: normal respiratory effort, able to speak in complete sentences and no respiratory distress GI Inspection: Yes normal to inspection Back/Spine/Pelvis Cervical Spine: normal cervical lordosis Thoracic/Lumbar Spine: thoracic and lumbar spine normal to inspection Skin General skin exam: no rashes or lesions noted Neuro General: patient oriented x3, gait normal, tone normal and moves all extremities Extrem General: Yes normal to inspection and Yes capillary refill normal Assessment & Plan Assessment & Plan (1) Bladder spasms: Code(s): N32.89 - Other specified disorders of bladder (2) Recurrent UTI (urinary tract infection): Code(s): N39.0 - Urinary tract infection, site not specified (3) Neurogenic bladder: Code(s): N31.9 - Neuromuscular dysfunction of bladder, unspecified Plan Given self start antibiotics Refilled methenamine and vitamin-C Trial oxybutynin ER for 2 months May need other bladder spasmodic medications Medications: New oxybutynin chloride ER 5 mg PO DAILY 30 days 30 tabs 1RF N32.81 - Overactive bladder, N39.0 - Urinary tract infection, site not specified, R39.15 - Urgency of urination Patient Instructions: Imaging studies, laboratory and physical exam results were discussed and reviewed in detail. No major barriers to patient understanding were identified. An opportunity to ask questions regarding the treatment plan was provided. All questions were answered. The patient expressed understanding and agreement with the above treatment plan. The patient is aware they should contact our office by phone for worsening of their current condition or the appearance of new urologic symptoms. Compliance is encouraged with any medications and followup testing that is ordered. It is a privilege to participate in the urologic care of your patient. If you have any questions or concerns regarding treatment for the above conditions, or other urologic issues, please do not hesitate to contact me. The office telephone contact is [phone]. This note is constructed using voice recognition software. While every effort has been made to ensure accuracy supervisor newspaper deliveries errors may have been included. Yours sincerely, Dr Oh Rodriguez MD, [facility] - Urology Providers of Expert, Compassionate Care for the Genitourinary System Coding Level of Care Code Est Pt Level 4 (00096) Diagnoses Bladder spasms N32.89 Recurrent UTI (urinary tract infection) N39.0 Neurogenic bladder N31.9
== END 2024-01-25 11:03 | disposition home or self-care (01) ==
PROVIDERS: Visit Provider Urology
DX: N32.89 Other specified disorders of bladder (principal); N39.0 Urinary tract infection, site not specified; N31.9 Neuromuscular dysfunction of bladder, unspecified
CPT/HCPCS: 99214

== ENCOUNTER → 2024-01-25 10:28 | Outpatient (BNVA) | payer MEDICARE, SELFPAY | PROVIDERS: Visit Provider Urology | DX: N32.89 Other specified disorders of bladder (principal); N39.0 Urinary tract infection, site not specified; N31.9 Neuromuscular dysfunction of bladder, unspecified | CPT/HCPCS: 99212 ==

== ENCOUNTER 2024-03-06 10:41 | Outpatient (AMB) | payer MEDICARE, SELFPAY ==
[2024-03-06 10:50] LABS: ~PT, ~INR - Anti Coag Clinic 1.8 (0.9-1.1)
--- NOTE | 2024-03-06 11:04 | MHC.OFFVISCO ---
Intake Intake Visit Reasons: Anticoagulation Allergies No Known Allergies Allergy (Mild, Verified 03/06/24 10:41) NOT APPLICABLE Medication List - Last Reconciled 03/06/24 by Janell Suarez RN ascorbic acid (vitamin C) (Vitamin C) 1,000 mg (2 x 500 mg) PO DAILY 90 days baclofen pump orally per md lazar for pump; bisacodyl (Dulcolax (bisacodyl)) 10 mg (2 x 5 mg) PO BEDTIME 2 days clonazepam 0 mg PO lanolin crffkax-pe-l.pet-ceres (Minerin Creme topical) appl topical BID lidocaine HCl 2% mL topical TID lidocaine HCl 2% mL topical methenamine hippurate 1 g PO DAILY 90 days naloxone 4 mg/actuation 0 sprays intranasal oxybutynin chloride 5 mg PO TID PRN oxybutynin chloride ER 5 mg PO DAILY 30 days oxycodone-acetaminophen 5-325 mg 1 tab PO Q8H PRN polyethylene glycol 3350 (Gavilax) grams PO psyllium husk (aspartame) 3 gram/5.8 gram (Reguloid (aspartame)) grams PO DAILY PRN pyridoxine (vitamin B6) (Vitamin B-6) PO varicella-zoster gE vac,2 of 2 (Shingrix gE Antigen Component) IM warfarin 3 mg See Protocol PO DAILY Nursing Note INR: 1.8 out of therapeutic range Medications and supplements reviewed just completed antbx last week that can have a delayed reaction in raising the INR - warfarin was held last week x 1 day, due to antbx, he may have eaten more greens due to the antbx Denies any signs and symptoms of bleeding or bruising or clotting. Bleeding, bruising, clotting discussed Nutritional guidance given - no greens today but enc to eat them next week due to the antbx, Dose: 3mg today then resume usual dose 3mg x 4 days 1.5mg x 3 days and recheck 2 weeks F/U INR: 2 weeks Patient verbalizes understanding of instructions given Anti-Coag Initial Assessment Social Hx Patient Tobacco Use Status: Former Tobacco user Alcohol intake frequency: does not drink Coding Level of Care Code Est Patient Level 1 Diagnoses Current use of anticoagulant therapy Z79.01 Assessment & Plan Assessment & Plan (1) Current use of anticoagulant therapy: Code(s): 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
== END 2024-03-06 11:10 | disposition home or self-care (01) ==
LOC: HO.ACS 10:41
PROVIDERS: Visit Provider Internal Medicine
DX: Z79.01 Long term (current) use of anticoagulants (principal)

== ENCOUNTER → 2024-03-06 10:41 | Outpatient (BNVA) | payer MEDICARE, SELFPAY | PROVIDERS: Visit Provider Internal Medicine | DX: I26.99 Other pulmonary embolism without acute cor pulmonale (principal); Z79.01 Long term (current) use of anticoagulants; Z51.81 Encounter for therapeutic drug level monitoring | CPT/HCPCS: 85610; 99211 ==

== ENCOUNTER 2024-03-20 10:42 | Outpatient (AMB) | payer MEDICARE, SELFPAY ==
[2024-03-20 11:21] LABS: Prothrombin Time Whole Bld POC 43.2 sec (11.1-13.5); ~PT, ~INR - Anti Coag Clinic 3.6 (0.9-1.1)
--- NOTE | 2024-03-20 11:32 | MHC.OFFVISCO ---
Intake Intake Visit Reasons: Anticoagulation Allergies No Known Allergies Allergy (Mild, Verified 03/20/24 11:07) NOT APPLICABLE Medication List - Last Reconciled 03/20/24 by Janell Suarez RN ascorbic acid (vitamin C) (Vitamin C) 1,000 mg (2 x 500 mg) PO DAILY 90 days baclofen pump orally per md lazar for pump; bisacodyl (Dulcolax (bisacodyl)) 10 mg (2 x 5 mg) PO BEDTIME 2 days clonazepam 0 mg PO lanolin glcfjab-on-g.pet-ceres (Minerin Creme topical) appl topical BID lidocaine HCl 2% mL topical TID lidocaine HCl 2% mL topical methenamine hippurate 1 g PO DAILY 90 days naloxone 4 mg/actuation 0 sprays intranasal oxybutynin chloride 5 mg PO TID PRN oxybutynin chloride ER 5 mg PO DAILY 30 days oxycodone-acetaminophen 5-325 mg 1 tab PO Q8H PRN polyethylene glycol 3350 (Gavilax) grams PO psyllium husk (aspartame) 3 gram/5.8 gram (Reguloid (aspartame)) grams PO DAILY PRN varicella-zoster gE vac,2 of 2 (Shingrix gE Antigen Component) IM warfarin 3 mg See Protocol PO DAILY Nursing Note INR 3.6 out of therapeutic range Medications and supplements reviewed Patient status: Thinks he took a double dose yesterday plus completed antbx about 2 weeks ago Medications or supplements: no changes Diet: good Denies any signs and symptoms of bleeding or clotting or unusual bruising Bleeding, bruising, clotting discussed Nutritional guidance given: eat a serving of greens today then resume usual diet Dose: hold today's dose then resume usual dose 3mg x 4 days/ 1.5mg mwf F/U INR Date : 2 weeks 04/06/24?? Patient verbalizing understanding of instructions given. 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
== END 2024-03-20 11:35 | disposition home or self-care (01) ==
LOC: HO.ACS 10:42
PROVIDERS: Visit Provider Internal Medicine
DX: Z79.01 Long term (current) use of anticoagulants (principal)

== ENCOUNTER → 2024-03-20 10:42 | Outpatient (BNVA) | payer MEDICARE, SELFPAY | PROVIDERS: Visit Provider Internal Medicine | DX: I26.99 Other pulmonary embolism without acute cor pulmonale (principal); Z51.81 Encounter for therapeutic drug level monitoring; Z79.01 Long term (current) use of anticoagulants | CPT/HCPCS: 85610; 99211 ==

== ENCOUNTER 2024-03-27 11:41 | Outpatient (AMB) | payer MEDICARE, SELFPAY ==
--- NOTE | 2024-03-27 11:41 | MHC.OFFVIS ---
Intake Visit Reasons: 2m follow up Intake Note: Patient presents today for tele visit follow up on: recurrent uti Urology Medication: Oxybutynin, Methenamine Antibiotic Allergies: None Blood Thinners: Warfarin [employer] Member Required: Yes [employer] Member Name: GISELA CHONG-CMI Allergies No Known Allergies Allergy (Mild, Verified 03/27/24 12:00) NOT APPLICABLE Medication List - Last Reconciled 03/27/24 by LIO Salcido-FRANCISCO ascorbic acid (vitamin C) (Vitamin C) 1,000 mg (2 x 500 mg) PO DAILY 90 days baclofen pump orally per md lazar for pump; bisacodyl (Dulcolax (bisacodyl)) 10 mg (2 x 5 mg) PO BEDTIME 2 days clonazepam 0 mg PO lanolin wrpeohr-ox-e.pet-ceres (Minerin Creme topical) appl topical BID lidocaine HCl 2% mL topical TID lidocaine HCl 2% mL topical methenamine hippurate 1 g PO DAILY 90 days naloxone 4 mg/actuation 0 sprays intranasal oxybutynin chloride 5 mg PO TID PRN oxybutynin chloride ER 5 mg PO DAILY 30 days oxycodone-acetaminophen 5-325 mg 1 tab PO Q8H PRN polyethylene glycol 3350 (Gavilax) grams PO psyllium husk (aspartame) 3 gram/5.8 gram (Reguloid (aspartame)) grams PO DAILY PRN varicella-zoster gE vac,2 of 2 (Shingrix gE Antigen Component) IM warfarin 3 mg See Protocol PO DAILY HPI Comments Details: Erasmo is a very pleasant Armenian speaking male patient of Dr. Foley. He has a PMH of paraplegia, DVT on Coumadin, urinary tract infections, meningitis, neurogenic bladder, and renal cysts. He is being followed up on today via telehealth for his neurogenic bladder, recurrent UTIs, and lower urinary tract symptoms. Of note, patient was seen approximately [address] Rodriguez at which time he was started on oxybutynin for bladder spasms. In discussion with the patient today he reports noting significant improvement in bladder spasms and lower urinary tract symptoms he had been experiencing. He reports he continues with CIC 4-6 times per day depending on fluid intake and urinary output. He reports at times he still is able to urinate independently without catheterization. He reports compliance with methenamine and vitamin-C for suppression of recurrent urinary tract infections. He currently denies any bothersome urinary issues or concerns. Neurogenic bladder Clean intermittent catheterization 4-5 times per day - straight catheter no coude - will require self catheterization for the foreseeable future Does have occasional UTI Prior ultrasound with renal cysts on left kidney Procedure - 07/09 TUIP PSA 2020 0.8 Infection protection-vitamin C and methanamine PFSH Medical History Paraplegia DVT (deep venous thrombosis) UTI (urinary tract infection) Hx of meningitis Renal cyst, acquired Neurogenic bladder Surgical History History of colonoscopy H/O abdominal surgery Social History Patient Tobacco Use Status: Former Tobacco user Review of Systems Const Reports no additional complaints Eyes Reports no additional complaints ENT Reports no additional complaints Card Reports as per HPI Resp Reports no additional complaints GI Reports no additional complaints Reports as per HPI Musc Reports as per HPI Neuro Reports as per HPI Psych Reports no additional complaints Endo Reports no additional complaints Walker/Lymph Reports as per HPI Aller/Immun Reports no additional complaints Physical Exam Const General: cooperative Resp Effort & Inspection: able to speak in complete sentences Psych Speech and movement: Clear speech present Attitude: cooperative Thought process: Normal thought process present Thought content: Normal thought content present Insight: Fair insight present (Psych) Judgement: Fair judgement present (Psych) Telehealth Telehealth Telehealth Platform: [facility] Location of provider rendering services: practice address Location of patient: address on file Patient Identification confirmed using: Name, : Yes Telehealth method: voice only Patient verbally consented to treatment: Yes Patient verbally consented to billing insurance company: Yes Patient informed of any privacy concerns related to visit: Yes Minutes spent on Phone/Video with Pt.: 15 Assessment & Plan Assessment & Plan (1) Recurrent UTI (urinary tract infection): Code(s): N39.0 - Urinary tract infection, site not specified Category: Medical (2) Neurogenic bladder: Code(s): N31.9 - Neuromuscular dysfunction of bladder, unspecified Category: Medical Plan Patient currently denies any bothersome urinary issues or concerns. He reports be happy with current voiding parameters on 5 mg of oxybutynin daily; will continue; refill provided. Continue methenamine and vitamin-C for suppression. Continue CIC 4-6 times per day as discussed. Patient with recent CT noting numerous left-sided renal cyst that appears stable when compared to previous imaging and bladder is unremarkable. Discussed obtaining PSA for further assessment evaluation. Follow-up in 3 months with lab to be completed prior; or sooner with any issues, concerns, and or questions. Orders: Orders Prostate Specific Antigen Today N31.9 - Neuromuscular dysfunction of bladder, unspecified, N39.0 - Urinary tract infection, site not specified Medications: Changed From oxybutynin chloride ER 5 mg PO DAILY 30 days 30 tabs 1RF N32.81 - Overactive bladder, N39.0 - Urinary tract infection, site not specified, R39.15 - Urgency of urination To oxybutynin chloride ER 5 mg PO DAILY 90 days 90 tabs 1RF N32.81 - Overactive bladder, N39.0 - Urinary tract infection, site not specified, R39.15 - Urgency of urination Discontinued oxybutynin chloride Discontinued Reason: Doctor's Order 5 mg PO TID PRN 20 tabs 0RF bladder spasms Patient Instructions: The patient had an opportunity to ask questions regarding the treatment plan. All questions were answered. Physical exam, labs, and imaging were discussed and reviewed in detail. As well as risks, benefits, and discussion of treatment choices. No major barriers to understanding were identified. The patient expressed understanding and agreement with the above treatment plan. The patient was made aware they should contact our office by phone for worsening of their current condition, the appearance of new symptoms, or with any questions or concerns. Compliance is encouraged with any medications and follow up testing that is ordered. It is a privilege to be allowed the opportunity to participate in? your urological care.? Again, if you have any questions or concerns If you have any questions or concerns please do not hesitate to contact me. The office is [phone]. This note is constructed using voice recognition software. While every effort has been made to ensure accuracy latrine cleaner errors may have been included. Yours sincerely, RINKU Salcido Coding Level of Care Code Tele Est Pt Level 3 (97937) Diagnoses Recurrent UTI (urinary tract infection) N39.0 Neurogenic bladder N31.9
== END 2024-03-27 12:25 | disposition home or self-care (01) ==
LOC: HO.HUSH 11:41
PROVIDERS: Visit Provider Nurse Practitioner Family
DX: N39.0 Urinary tract infection, site not specified (principal); N31.9 Neuromuscular dysfunction of bladder, unspecified
CPT/HCPCS: 99442

== ENCOUNTER → 2024-03-27 11:41 | Outpatient (BNVA) | payer MEDICARE, SELFPAY | PROVIDERS: Visit Provider Nurse Practitioner Family ==

== ENCOUNTER 2024-04-06 10:49 | Outpatient (AMB) | payer MEDICARE, SELFPAY ==
[2024-04-06 11:06] LABS: Prothrombin Time Whole Bld POC 33.2 sec (11.1-13.5); ~PT, ~INR - Anti Coag Clinic 2.8 (0.9-1.1)
--- NOTE | 2024-04-06 11:11 | MHC.OFFVISCO ---
Intake Intake Visit Reasons: Anticoagulation Allergies No Known Allergies Allergy (Mild, Verified 04/06/24 11:01) NOT APPLICABLE Medication List - Last Reconciled 04/06/24 by Margarita Stewart, RN ascorbic acid (vitamin C) (Vitamin C) 1,000 mg (2 x 500 mg) PO DAILY 90 days baclofen pump orally per md lazar for pump; bisacodyl (Dulcolax (bisacodyl)) 10 mg (2 x 5 mg) PO BEDTIME 2 days clonazepam 0 mg PO lanolin vdiuziq-ag-d.pet-ceres (Minerin Creme topical) appl topical BID lidocaine HCl 2% mL topical TID lidocaine HCl 2% mL topical methenamine hippurate 1 g PO DAILY 90 days naloxone 4 mg/actuation 0 sprays intranasal oxybutynin chloride ER 5 mg PO DAILY 90 days polyethylene glycol 3350 (Gavilax) grams PO psyllium husk (aspartame) 3 gram/5.8 gram (Reguloid (aspartame)) grams PO DAILY PRN varicella-zoster gE vac,2 of 2 (Shingrix gE Antigen Component) IM warfarin 3 mg See Protocol PO DAILY Nursing Note NO CP,SOB,DIET/MED CHANGES,FALLS OR SX OF BLEEDING. CONTINUE PRESENT DOSE AND FOLLOW-UP IN 3 WEEKS. GOOD UNDERSTANDING OF INSTR.VERB. Anti-Coag Initial Assessment Social Hx Patient Tobacco Use Status: Former Tobacco user Alcohol intake frequency: does not drink Coding Level of Care Code Est Patient Level 1 Diagnoses Current use of anticoagulant therapy Z79.01 Assessment & Plan Assessment & Plan (1) Current use of anticoagulant therapy: Code(s): Z79.01 - retirement (current) use of anticoagulants Category: Medical
== END 2024-04-06 11:13 | disposition home or self-care (01) ==
LOC: HO.ACS 10:49
PROVIDERS: Visit Provider Internal Medicine
DX: Z79.01 Long term (current) use of anticoagulants (principal)

== ENCOUNTER → 2024-04-06 10:49 | Outpatient (BNVA) | payer MEDICARE, SELFPAY | PROVIDERS: Visit Provider Internal Medicine | DX: I26.99 Other pulmonary embolism without acute cor pulmonale (principal); Z79.01 Long term (current) use of anticoagulants; Z51.81 Encounter for therapeutic drug level monitoring | CPT/HCPCS: 85610; 99211 ==

== ENCOUNTER → 2024-04-11 10:13 | Outpatient (BNVA) | payer MEDICARE, SELFPAY | PROVIDERS: Visit Provider Urology | DX: N39.0 Urinary tract infection, site not specified (principal); N31.9 Neuromuscular dysfunction of bladder, unspecified; I26.99 Other pulmonary embolism without acute cor pulmonale; Z79.01 Long term (current) use of anticoagulants; Z51.81 Encounter for therapeutic drug level monitoring | CPT/HCPCS: 85610; 99211; 99212 ==

== ENCOUNTER 2024-04-11 10:15 | Outpatient (AMB) | payer MEDICARE, SELFPAY ==
--- NOTE | 2024-04-11 10:17 | A.OFFVIS_ITS ---
Intake Visit Reasons: Neurogenic bladder & UTI Intake Note: Patient is present for Neurogenic bladder and UTI Urology Medication:Methenamine,Ascorbic Acid Antibiotic Allergy:none Blood Thinner:Warfarin Account Director Required: No Allergies No Known Allergies Allergy (Mild, Verified 04/11/24 10:18) NOT APPLICABLE Medication List - Last Reconciled 04/11/24 by Oh Rodriguez MD ascorbic acid (vitamin C) (Vitamin C) 1,000 mg (2 x 500 mg) PO DAILY 90 days baclofen pump orally per md lazar for pump; bisacodyl (Dulcolax (bisacodyl)) 10 mg (2 x 5 mg) PO BEDTIME 2 days clonazepam 0 mg PO lanolin cipeokg-up-y.pet-ceres (Minerin Creme topical) appl topical BID levofloxacin 750 mg PO DAILY 5 days lidocaine HCl 2% mL topical TID lidocaine HCl 2% mL topical methenamine hippurate 1 g PO DAILY 90 days naloxone 4 mg/actuation 0 sprays intranasal oxybutynin chloride ER 5 mg PO DAILY 90 days polyethylene glycol 3350 (Gavilax) grams PO psyllium husk (aspartame) 3 gram/5.8 gram (Reguloid (aspartame)) grams PO DAILY PRN varicella-zoster gE vac,2 of 2 (Shingrix gE Antigen Component) IM warfarin 3 mg See Protocol PO DAILY HPI Comments Details: Erasmo is a very pleasant Mauritanian speaking male patient of Dr. Foley. He has a PMH of paraplegia, DVT on Coumadin, urinary tract infections, meningitis, neurogenic bladder, and renal cysts. He is being followed up on today via telehealth for his neurogenic bladder, recurrent UTIs, and lower urinary tract symptoms. Of note, patient was seen approximately [address] Rodriguez at which time he was started on oxybutynin for bladder spasms. In discussion with the patient today he reports noting significant improvement in bladder spasms and lower urinary tract symptoms he had been experiencing. He reports he cont inues with CIC 4-6 times per day depending on fluid intake and urinary output. He reports at times he still is able to urinate independently without catheterization. He reports compliance with methenamine and vitamin-C for suppression of recurrent urinary tract infections. He currently denies any bothersome urinary issues or concerns. Neurogenic bladder Clean intermittent catheterization 4-5 times per day - straight catheter no coude - will require self catheterization for the foreseeable future Does have occasional UTI Prior ultrasound with renal cysts on left kidney Procedure - 07/09 TUIP PSA 2020 0.8 Infection protection-vitamin C and methanamine Possible UTI Has Levaquin self start Medication refilled Keep three-month follow-up [facility] Medical History Paraplegia DVT (deep venous thrombosis) UTI (urinary tract infection) Hx of meningitis Renal cyst, acquired Neurogenic bladder Surgical History History of colonoscopy H/O abdominal surgery Social History Patient Tobacco Use Status: Former Tobacco user Review of Systems Const Denies chills and Denies fever(s) Card Reports no additional complaints and Denies syncope Resp Denies cough GI Denies abdominal pain and Denies heartburn Reports as per HPI and Denies change in libido Neuro Denies syncope Psych Denies change in libido Endo Denies change in libido Physical Exam Const General: cooperative, healthy appearing, comfortable and no acute distress Orientation/consciousness: patient oriented x3 HEENT Face and sinus: Yes normal facial exam Mouth: moist mucous membranes Neck Neck: Yes normal visual inspection, Yes full ROM and Yes trachea midline Chest Chest palpation & inspection: normal inspection of the chest Resp Effort & Inspection: normal respiratory effort, able to speak in complete sentences and no respiratory distress GI Inspection: Yes normal to inspection Back/Spine/Pelvis Cervical Spine: normal cervical lordosis Thoracic/Lumbar Spine: thoracic and lumbar spine normal to inspection Skin General skin exam: no rashes or lesions noted Neuro General: patient oriented x3, gait normal, tone normal and moves all extremities Extrem General: Yes normal to inspection and Yes capillary refill normal Assessment & Plan Assessment & Plan (1) Recurrent UTI (urinary tract infection): Code(s): N39.0 - Urinary tract infection, site not specified Category: Medical (2) Neurogenic bladder: Code(s): N31.9 - Neuromuscular dysfunction of bladder, unspecified Category: Medical Plan Three-month follow-up Orders: Orders AMB Urinalysis Automated Today Z13.9 - Encounter for screening, unspecified Medications: New levofloxacin 750 mg PO DAILY 5 days 5 tabs 1RF N39.0 - Urinary tract infection, site not specified Patient Instructions: Imaging studies, laboratory and physical exam results were discussed and reviewed in detail. No major barriers to patient understanding were identified. An opportunity to ask questions regarding the treatment plan was provided. All questions were answered. The patient expressed understanding and agreement with the above treatment plan. The patient is aware they should contact our office by phone for worsening of their current condition or the appearance of new urologic symptoms. Compliance is encouraged with any medications and followup testing that is ordered. It is a privilege to participate in the urologic care of your patient. If you have any questions or concerns regarding treatment for the above conditions, or other urologic issues, please do not hesitate to contact me. The office telephone contact is [phone]. This note is constructed using voice recognition software. While every effort has been made to ensure accuracy drop forger errors may have been included. Yours sincerely, Dr Oh Rodriguez MD, [facility] - Urology Providers of Expert, Compassionate Care for the Genitourinary System Coding Level of Care Code Est Pt Level 4 (42400) Diagnoses Recurrent UTI (urinary tract infection) N39.0 Neurogenic bladder N31.9
== END 2024-04-11 10:51 | disposition home or self-care (01) ==
PROVIDERS: Visit Provider Urology
DX: N39.0 Urinary tract infection, site not specified (principal); N31.9 Neuromuscular dysfunction of bladder, unspecified
CPT/HCPCS: 99213

== ENCOUNTER 2024-04-11 11:06 | Outpatient (AMB) | payer MEDICARE, SELFPAY ==
[2024-04-11 11:12] LABS: Prothrombin Time Whole Bld POC 31.1 sec (11.1-13.5); ~PT, ~INR - Anti Coag Clinic 2.6 (0.9-1.1)
--- NOTE | 2024-04-11 11:21 | MHC.OFFVISCO ---
Intake Intake Visit Reasons: Anticoagulation Allergies No Known Allergies Allergy (Mild, Verified 04/11/24 10:18) NOT APPLICABLE Medication List - Last Reconciled 04/11/24 by Janell Suarez, RN ascorbic acid (vitamin C) (Vitamin C) 1,000 mg (2 x 500 mg) PO DAILY 90 days baclofen pump orally per md lazar for pump; bisacodyl (Dulcolax (bisacodyl)) 10 mg (2 x 5 mg) PO BEDTIME 2 days clonazepam 0 mg PO lanolin sczojpr-jw-b.pet-ceres (Minerin Creme topical) appl topical BID levofloxacin 750 mg PO DAILY 5 days lidocaine HCl 2% mL topical TID lidocaine HCl 2% mL topical methenamine hippurate 1 g PO DAILY 90 days naloxone 4 mg/actuation 0 sprays intranasal oxybutynin chloride ER 5 mg PO DAILY 90 days polyethylene glycol 3350 (Gavilax) grams PO psyllium husk (aspartame) 3 gram/5.8 gram (Reguloid (aspartame)) grams PO DAILY PRN varicella-zoster gE vac,2 of 2 (Shingrix gE Antigen Component) IM warfarin 3 mg See Protocol PO DAILY Nursing Note walk in today s/p urology appt - states he is starting levofloxacin 750 mg x 5 days- has a delayed onset in raising the INR INR: 2.6 in therapeutic range Medications and supplements reviewed Denies any signs and symptoms of bleeding or bruising or clotting. Bleeding, bruising, clotting discussed Nutritional guidance given: enc to increase greens over the weekend by 2 extra servings because of the antibiotic Dose: decrease dose by 1 day= 1.5mg x 4days this week, decreasing warfarin dose day 5 of antbx then resume usual dose F/U INR: 2 weeks, pt requested 3 weeks or a month - but it was explained his INR should be checked after the antbx - if it something he going to have periodically and his INR is stable after the antbx warfarin, and diet adjustment - may then he can go 3 or 4 weeks Patient verbalizes understanding of instructions given Anti-Coag Initial Assessment Social Hx Patient Tobacco Use Status: Former Tobacco user Alcohol intake frequency: does not drink Coding Level of Care Code Est Patient Level 1 Diagnoses Current use of anticoagulant therapy Z79.01 Results AMB INR Fingerstick AMB INR Fingerstick 2.6 Last Edit by Janell Suarez RN on 04/11/24 11:15 DELAY INTERFACING MANUAL ENTRY Assessment & Plan Assessment & Plan (1) Current use of anticoagulant therapy: Code(s): Z79.01 - [facility] (current) use of anticoagulants Category: Medical
== END 2024-04-11 11:27 | disposition home or self-care (01) ==
LOC: HO.ACS 11:06
PROVIDERS: Visit Provider Internal Medicine
DX: Z79.01 Long term (current) use of anticoagulants (principal)

== ENCOUNTER 2024-04-27 10:47 | Outpatient (AMB) | payer MEDICARE, SELFPAY ==
[2024-04-27 11:02] LABS: Prothrombin Time Whole Bld POC 27.8 sec (11.1-13.5); ~PT, ~INR - Anti Coag Clinic 2.3 (0.9-1.1)
--- NOTE | 2024-04-27 11:12 | MHC.OFFVISCO ---
Intake Intake Visit Reasons: Anticoagulation Allergies No Known Allergies Allergy (Mild, Verified 04/27/24 10:52) NOT APPLICABLE Medication List - Last Reconciled 04/27/24 by Janell Suarez RN ascorbic acid (vitamin C) (Vitamin C) 1,000 mg (2 x 500 mg) PO DAILY 90 days baclofen pump orally per md lazar for pump; bisacodyl (Dulcolax (bisacodyl)) 10 mg (2 x 5 mg) PO BEDTIME 2 days clonazepam 0 mg PO lanolin stfuxhi-rv-e.pet-ceres (Minerin Creme topical) appl topical BID levofloxacin 750 mg PO DAILY 5 days lidocaine HCl 2% mL topical TID lidocaine HCl 2% mL topical methenamine hippurate 1 g PO DAILY 90 days naloxone 4 mg/actuation 0 sprays intranasal oxybutynin chloride ER 5 mg PO DAILY 90 days oxycodone-acetaminophen 5-325 mg 1 tab PO DAILY PRN polyethylene glycol 3350 (Gavilax) grams PO psyllium husk (aspartame) 3 gram/5.8 gram (Reguloid (aspartame)) grams PO DAILY PRN varicella-zoster gE vac,2 of 2 (Shingrix gE Antigen Component) IM warfarin 3 mg See Protocol PO DAILY Nursing Note INR: 2.3 in therapeutic range Medications and supplements reviewed States he is on a daily preventative dose of antibiotics and is to call with name- may be levofloxacin that he has recently been on but not sure Denies any signs and symptoms of bleeding or bruising or clotting. Bleeding, bruising, clotting discussed Nutritional guidance given Dose: keep same dose for now until the antibiotic name is known 3mg x 4 days/ 1.5mg x 3 days F/U INR 3 weeks Patient verbalizes understanding of instructions given Anti-Coag Initial Assessment Social Hx Patient Tobacco Use Status: Former Tobacco user Alcohol intake frequency: does not drink Coding Level of Care Code Est Patient Level 1 Diagnoses Current use of anticoagulant therapy Z79.01 Results AMB INR Fingerstick AMB INR Fingerstick 2.3 Last Edit by Janell Suarez RN on 04/27/24 11:03 manual entry ongoing failed interfacing Assessment & Plan Assessment & Plan (1) Current use of anticoagulant therapy: Code(s): Z79.01 - [facility] (current) use of anticoagulants Category: Medical
== END 2024-04-27 11:17 | disposition home or self-care (01) ==
LOC: HO.ACS 10:47
PROVIDERS: PCP Internal Medicine; Visit Provider Internal Medicine
DX: Z79.01 Long term (current) use of anticoagulants (principal)

== ENCOUNTER → 2024-04-27 10:47 | Outpatient (BNVA) | payer MEDICARE, SELFPAY | PROVIDERS: PCP Internal Medicine; Visit Provider Internal Medicine | DX: I26.99 Other pulmonary embolism without acute cor pulmonale (principal); Z79.01 Long term (current) use of anticoagulants; Z51.81 Encounter for therapeutic drug level monitoring | CPT/HCPCS: 85610; 99211 ==

== ENCOUNTER 2024-05-02 10:22 | Outpatient (AMB) | payer MEDICARE, SELFPAY ==
--- NOTE | 2024-05-02 10:27 | A.OFFVIS_ITS ---
Vital Signs 05/02/24 10:38 Height 5 ft 5 in Weight 142 lb BMI 23.6 BP 55/43 L Blood Pressure Location Lt brachial Position Sitting Pulse 67 Intake Visit Reasons: Rediscuss Colonoscopy Intake Note: Patient follow up to discuss colonoscopy screening. Patient cc: difficulty to do BM, and abdominal pain. Denies any other GI issues. 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 His last was in [address] Redmond and was negative except for a decubitis ulcer. HE is wheelchair bound paraplegic. He is here with a male family member. HE is on coumadin for DVT and he is seen at our coumadin clinic here. He also has an intrathecal pump. He denies any respiratory or cardiac problems. He denies any problems with anesthesia or sedation. No ID problems. There is no known FHX or crc or polyps. 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 Page stated she will notify Anticoag or myself with the date should he have one and if he needs to hold the warfarin for it. We will contact PCP nurse should he have to hold warfarin for possible bridging. Thank You On 01/21/24 @ 12:28 Estelle Ornelas Wrote To Janell Suarez Please consult endoscopist, I do not determine this. On 01/21/24 @ 12:15 Janell Suarez Wrote To Johnson spoke with PCP office spoke with Nurse Sharda she stated when number of holding days is determined they will decide if lovenox bridge required. On 01/21/24 @ 11:07 Janell Suarez Wrote To JohnsonJanuary Good morning January, He has a colonscopy 02/23/24 with you. Will he be holding warfarin x 5 days? Please let pt know when it is safe to resume warfarin and if on lovenox when he can resume. He will have INR chk Feb 18 2024 5days prior procedure I will call and ask PCP if he needs a lovenox bridge. Thank you Janell RN Laboratory Tests 01/05/24 18:39 WBC 5.8 Hgb 14.7 Hct 44.1 Plt Count 195 Estimated GFR > 60 Total Bilirubin 0.5 Direct Bilirubin 0.2 AST 22 ALT 26 Alkaline Phosphatase 49 TODAY'S VISIT Patient has been lost to follow-up since 02/2021 [place] [facility] His only new health problems are r/t frequent UTI's - he self caths and tries to practice good hygiene. He says he had a prior colonoscopy but it was years ago and it was negative. His last was in [address] Redmond and was negative except for a decubitis ulcer. HE is wheelchair bound paraplegic. He is here with a male family member. HE is on coumadin for DVT and he is seen at our coumadin clinic here. He also has an intrathecal pump. HE NEEDS A LOVENOX BRIDGE. He denies any respiratory or cardiac problems. He denies any problems with anesthesia or sedation. No ID problems. After discussion, he has fears Cologuard and he views the video, he still opts for colonoscopy [facility] Medical History (Updated 05/04/24 @ 18:10 by AMIRAH Che) Paraplegia DVT (deep venous thrombosis) UTI (urinary tract infection) Hx of meningitis Renal cyst, acquired Neurogenic bladder Surgical History History of colonoscopy H/O abdominal surgery Social History Patient Tobacco Use Status: Former Tobacco user Review of Systems Const Denies fatigue, Denies fever(s), Denies night sweats, Denies poor appetite and Denies weight loss ENT Reports Normal hearing present, Denies dental pain, Denies dysphagia, Denies hearing loss, Denies mouth pain, Denies odynophagia, Denies throat swelling, Denies tongue swelling and Reports other (Dentition adequate) Card Reports no additional complaints Resp Reports no additional complaints GI Details: Denies abdominal pain, Denies melena, Denies bloating, Denies hematochezia, Reports constipation, Denies GI cramping, Denies dysphagia, Denies excessive flatus, Denies early satiety, Denies heartburn, Denies diarrhea, Denies nausea, Denies odynophagia, Denies vomiting and Denies hematemesis Details: Repeated urine tract infections due to neurogenic bladder Skin/Breast Denies pruritus, Denies lesions, Denies rash and Denies jaundice Neuro Reports Normal hearing present and Denies Abnormal speech present Endo Denies fatigue Aller/Immun Denies throat swelling and Denies tongue swelling Physical Exam Vital Signs: Last Vital Signs Pulse 67 05/02/24 10:38 BP 55/43 L 05/02/24 10:38 BMI result Body Mass Index 23.6 Const General: cooperative, no acute distress, well developed and well groomed Nutritional Appearance: average body habitus and well nourished Orientation/consciousness: oriented to person, oriented to place and oriented to time Limitations: language barrier and wheelchair HEENT Head: Yes normocephalic and Yes atraumatic Eyes General: appearance normal, both eyes and all related structures Pupils: Equal, round and reactive pupils present Neck Neck: Yes normal visual inspection and Yes no lymphadenopathy Thyroid: Thyroid normal Resp Effort & Inspection: normal respiratory effort and able to speak in complete sentences Auscultation: clear to auscultation bilaterally Cardio Rate: regular rate Rhythm: regular rhythm Heart sounds: Normal, physiologic split S2 sound present Peripheral pulses: radial pulses present and posterior tibial pulses present GI Inspection: No distended and No Abdominal panniculus present Palpation (GI): Soft to palpation, nontender, no guarding, not rigid and No hepatosplenomegaly present Percussion: Yes normal to percussion Auscultation: normal bowel sounds Rectal Exam - Male: Yes deferred Skin General skin exam: no rashes or lesions noted, turgor normal, skin not dry, no jaundice, No spider nevi and no striae Rashes: no rashes Nails: normal Neuro General: oriented to person, oriented to place and oriented to time Cranial nerves: Yes Equal, round and reactive pupils present and Yes Normal hearing present Speech: No Abnormal speech present Extrem General: Yes normal to inspection, No clubbing, No cyanosis and No edema Psych Appearance: grossly normal and well kempt Mental Status: mental status grossly normal Speech and movement: Normal speech and movement present Affect: normal affect Attitude: cooperative Thought process: Normal thought process present and not confabulating Thought content: Normal thought content present Insight: Fair insight present (Psych) Judgement: Fair judgement present (Psych) Assessment & Plan Assessment & Plan (1) Pre-op examination: Code(s): Z01.818 - Encounter for other preprocedural examination Category: Medical (2) Wheelchair dependent: Code(s): Z99.3 - Dependence on wheelchair Category: Medical (3) Paraplegia: Code(s): G82.20 - Paraplegia, unspecified Category: Medical (4) Current use of anticoagulant therapy: Code(s): Z79.01 - residential (current) use of anticoagulants Category: Medical Plan Patient has been lost to follow-up since 02/2021 [place] [facility] His only new health problems are r/t frequent UTI's - he self caths and tries to practice good hygiene. He says he had a prior colonoscopy but it was years ago and it was negative. His last was in [address] Redmond and was negative except for a decubitis ulcer. HE is wheelchair bound paraplegic. He is here with a male family member. HE is on coumadin for DVT and he is seen at our coumadin clinic here. He also has an intrathecal pump. HE NEEDS A LOVENOX BRIDGE. He denies any respiratory or cardiac problems. He denies any problems with anesthesia or sedation. No ID problems. After discussion, he has fears Cologuard and he views the video, he still opts for colonoscopy Orders: Orders Colonoscopy - GI Use Only 05/02/24 Z01.818 - Encounter for other preprocedural examination Medications: New peg 3350-electrolytes 236-22.74-6.74 -5.86 gram (Golytely) until fecal effluent is clear; do not exceed a total volume of 2,000 mL 240 mL PO Q10M 4,000 mL 0RF 1 day Z12.11 - Encounter for screening for malignant neoplasm of colon Coding Level of Care Code Est Pt Level 4 (88903) Diagnoses Pre-op examination Z01.818 Wheelchair dependent Z99.3 Paraplegia G82.20 Current use of anticoagulant therapy Z79.01
[2024-05-02 10:38] VITALS: BP 55/43; PULSE 67; BMI 23.6
== END 2024-05-02 11:31 | disposition home or self-care (01) ==
PROVIDERS: PCP Internal Medicine; Visit Provider Nurse Practitioner
DX: Z01.818 Encounter for other preprocedural examination (principal); Z12.11 Encounter for screening for malignant neoplasm of colon; Z99.3 Dependence on wheelchair; G82.20 Paraplegia, unspecified; Z79.01 Long term (current) use of anticoagulants
CPT/HCPCS: 99024

== ENCOUNTER → 2024-05-02 10:22 | Outpatient (BNVA) | payer MEDICARE, SELFPAY | PROVIDERS: PCP Internal Medicine; Visit Provider Nurse Practitioner | DX: Z01.818 Encounter for other preprocedural examination (principal); G82.20 Paraplegia, unspecified; Z99.3 Dependence on wheelchair; Z79.01 Long term (current) use of anticoagulants | CPT/HCPCS: 99212 ==

== ENCOUNTER 2024-05-18 11:06 | Outpatient (AMB) | payer MEDICARE, SELFPAY ==
[2024-05-18 11:22] LABS: Prothrombin Time Whole Bld POC 33.6 sec (11.1-13.5); ~PT, ~INR - Anti Coag Clinic 2.8 (0.9-1.1)
--- NOTE | 2024-05-18 11:23 | MHC.OFFVISCO ---
Intake Intake Visit Reasons: Anticoagulation Allergies No Known Allergies Allergy (Mild, Verified 05/18/24 11:11) NOT APPLICABLE Medication List - Last Reconciled 05/18/24 by Janell Suarez RN ascorbic acid (vitamin C) (Vitamin C) 1,000 mg (2 x 500 mg) PO DAILY 90 days baclofen pump orally per md lazar for pump; bisacodyl (Dulcolax (bisacodyl)) 10 mg (2 x 5 mg) PO BEDTIME 2 days clonazepam 0 mg PO lanolin oloydip-gf-m.pet-ceres (Minerin Creme topical) appl topical BID lidocaine HCl 2% mL topical TID lidocaine HCl 2% mL topical methenamine hippurate 1 g orally t tab daily per pt; methenamine hippurate 1 g PO DAILY 90 days naloxone 4 mg/actuation 0 sprays intranasal oxybutynin chloride ER 5 mg PO DAILY 90 days oxycodone-acetaminophen 5-325 mg 1 tab PO DAILY PRN peg 3350-electrolytes 236-22.74-6.74 -5.86 gram (Golytely) 240 mL PO Q10M 1 day psyllium husk (aspartame) 3 gram/5.8 gram (Reguloid (aspartame)) grams PO DAILY PRN varicella-zoster gE vac,2 of 2 (Shingrix gE Antigen Component) IM warfarin 3 mg See Protocol PO DAILY Nursing Note INR: 2.8 in therapeutic range Medications and supplements reviewed No changes in health, diet, medications, or supplements, Denies any signs and symptoms of bleeding or bruising or clotting. Bleeding, bruising, clotting discussed Nutritional guidance given- cont to eat a mix of fruits and vegertables Dose: keep same dose 1.5mg x 3 days/ 3mg x 4 days F/U INR: 3 weeks Patient verbalizes understanding of instructions given Anti-Coag Initial Assessment Social Hx Patient Tobacco Use Status: Former Tobacco user Alcohol intake frequency: does not drink Coding Level of Care Code Est Patient Level 1 Diagnoses Current use of anticoagulant therapy Z79.01 Assessment & Plan Assessment & Plan (1) Current use of anticoagulant therapy: Code(s): Z79.01 - [facility] (current) use of anticoagulants Category: Medical
== END 2024-05-18 11:33 | disposition home or self-care (01) ==
LOC: HO.ACS 11:06
PROVIDERS: PCP Internal Medicine; Visit Provider Internal Medicine
DX: Z79.01 Long term (current) use of anticoagulants (principal)

== ENCOUNTER → 2024-05-18 11:06 | Outpatient (BNVA) | payer MEDICARE, SELFPAY | PROVIDERS: PCP Internal Medicine; Visit Provider Internal Medicine | DX: I26.99 Other pulmonary embolism without acute cor pulmonale (principal); Z79.01 Long term (current) use of anticoagulants; Z51.81 Encounter for therapeutic drug level monitoring | CPT/HCPCS: 85610; 99211 ==

== ENCOUNTER 2024-06-08 10:59 | Outpatient (AMB) | payer MEDICARE, SELFPAY ==
[2024-06-08 11:34] LABS: Prothrombin Time Whole Bld POC 35.6 sec (11.1-13.5)
--- NOTE | 2024-06-08 11:42 | MHC.OFFVISCO ---
Intake Intake Visit Reasons: Anticoagulation Allergies No Known Allergies Allergy (Mild, Verified 06/08/24 11:26) NOT APPLICABLE Medication List - Last Reconciled 06/08/24 by Janell Suarez RN acetaminophen 500 mg PO Q6H PRN ascorbic acid (vitamin C) (Vitamin C) 1,000 mg (2 x 500 mg) PO DAILY 90 days baclofen pump orally per md lazar for pump; bisacodyl (Dulcolax (bisacodyl)) 10 mg (2 x 5 mg) PO BEDTIME 2 days clonazepam 0 mg PO diclofenac sodium 1% topical lanolin ivphvms-zv-f.pet-ceres (Minerin Creme topical) appl topical BID lidocaine HCl 2% mL topical TID lidocaine HCl 2% mL topical methenamine hippurate 1 g orally t tab daily per pt; methenamine hippurate 1 g PO DAILY 90 days naloxone 4 mg/actuation 0 sprays intranasal oxybutynin chloride ER 5 mg PO DAILY 90 days peg 3350-electrolytes 236-22.74-6.74 -5.86 gram (Golytely) 240 mL PO Q10M 1 day psyllium husk (aspartame) 3 gram/5.8 gram (Reguloid (aspartame)) grams PO DAILY PRN varicella-zoster gE vac,2 of 2 (Shingrix gE Antigen Component) IM warfarin 3 mg See Protocol PO DAILY zolpidem 5 mg PO BEDTIME PRN Nursing Note INR: 3.0 in therapeutic range Medications and supplements reviewed No changes in health, diet, medications, or supplements, Denies any signs and symptoms of bleeding or bruising or clotting. Bleeding, bruising, clotting discussed Nutritional guidance given - REMEMBER WEEKLY GRENS Dose: KEEP SAME DOSE 1.5G MWF/ 3MG X 4 DAYS F/U INR: 4 WEEKS Patient verbalizes understanding of instructions given Anti-Coag Initial Assessment Social Hx Patient Tobacco Use Status: Former Tobacco user Alcohol intake frequency: does not drink Coding Level of Care Code Est Patient Level 1 Diagnoses Current use of anticoagulant therapy Z79.01 Results AMB INR Fingerstick AMB INR Fingerstick 3.0 Last Edit by Janell Suarez RN on 06/08/24 11:38 MANUAL ENTRY Assessment & Plan Assessment & Plan (1) Current use of anticoagulant therapy: Code(s): Z79.01 - [facility] (current) use of anticoagulants Category: Medical
== END 2024-06-08 11:47 | disposition home or self-care (01) ==
LOC: HO.ACS 10:59
PROVIDERS: PCP Internal Medicine; Visit Provider Internal Medicine
DX: Z79.01 Long term (current) use of anticoagulants (principal)

== ENCOUNTER → 2024-06-08 10:59 | Outpatient (BNVA) | payer MEDICARE, SELFPAY | PROVIDERS: PCP Internal Medicine; Visit Provider Internal Medicine | DX: I26.99 Other pulmonary embolism without acute cor pulmonale (principal); Z79.01 Long term (current) use of anticoagulants; Z51.81 Encounter for therapeutic drug level monitoring | CPT/HCPCS: 85610; 99211 ==

== ENCOUNTER 2024-06-26 11:13 | Outpatient (AMB) | payer MEDICARE, SELFPAY ==
--- NOTE | 2024-06-26 11:18 | MHC.OFFVIS ---
Intake Visit Reasons: 3m/PSA/PVR Intake Note: Patient is present for Neurogenic bladder and UTI Urology Medication:Methenamine,Ascorbic Acid (pt not taking oxybutynin) Antibiotic Allergy:none Blood Thinner:Warfarin PVR: Rig Superintendent Required: Yes Accompanied by: Self / Same As Patient Allergies No Known Allergies Allergy (Mild, Verified 06/26/24 11:58) NOT APPLICABLE Medication List - Last Reconciled 06/26/24 by RINKU Salcido acetaminophen 500 mg PO Q6H PRN ascorbic acid (vitamin C) (Vitamin C) 1,000 mg (2 x 500 mg) PO DAILY 90 days baclofen pump orally per md lazar for pump; bisacodyl (Dulcolax (bisacodyl)) 10 mg (2 x 5 mg) PO BEDTIME 2 days clonazepam 0 mg PO diclofenac sodium 1% topical lanolin egigzyd-ub-s.pet-ceres (Minerin Creme topical) appl topical BID lidocaine HCl 2% mL topical TID lidocaine HCl 2% mL topical methenamine hippurate 1 g orally t tab daily per pt; methenamine hippurate 1 g PO DAILY 90 days naloxone 4 mg/actuation 0 sprays intranasal oxybutynin chloride ER 5 mg PO DAILY 90 days peg 3350-electrolytes 236-22.74-6.74 -5.86 gram (Golytely) 240 mL PO Q10M 1 day psyllium husk (aspartame) 3 gram/5.8 gram (Reguloid (aspartame)) grams PO DAILY PRN varicella-zoster gE vac,2 of 2 (Shingrix gE Antigen Component) IM warfarin 3 mg See Protocol PO DAILY zolpidem 5 mg PO BEDTIME PRN HPI Comments Details: Erasmo is a very pleasant 63-year-old Salvadorean speaking male patient of Dr. Foley. He has a PMH of paraplegia, DVT on Coumadin, urinary tract infections, meningitis, neurogenic bladder, and renal cysts. He presents to the office today for follow-up of his neurogenic bladder, recurrent urinary tract infections and lower urinary tract symptoms. In discussion with the patient today he reports feeling he has a urinary tract infection. He reports noting over the last few days noting foul-smelling urine upon CIC. He reports typicall he CIC 5-6 times per day for his neurogenic bladder. He reports during his last office visit here he was treated for urinary tract infection with Dr. Rodriguez and felt up until approximately a few days ago he had been doing well. He reports compliance with methenamine and vitamin-C seen for suppression as prescribed. He also reports compliance with oxybutynin for bladder spasms. He otherwise denies any bothersome issues or concerns. In office urinalysis results reviewed with the patient today 3+ leukocytes and positive nitrates. PVR 0 mL. Discuss treatment for UTI and urine culture. Discussed at length potential causes of recurrent urinary tract infections. He reports at times he still is able to urinate independently without catheterization. Discussed redraw of PSA however given recent UTI will await. Neurogenic bladder Clean intermittent catheterization 4-5 times per day - straight catheter no coude - will require self catheterization for the foreseeable future Does have occasional UTI Prior ultrasound with renal cysts on left kidney Procedure - 07/09 TUIP PSA 2019 0.8 Infection protection-vitamin C and methanamine PFSH Medical History (Updated 06/26/24 @ 14:40 by GELY Salcido) Paraplegia DVT (deep venous thrombosis) UTI (urinary tract infection) Hx of meningitis Renal cyst, acquired Neurogenic bladder Surgical History History of colonoscopy H/O abdominal surgery Social History Patient Tobacco Use Status: Former Tobacco user Review of Systems Const Reports no additional complaints Eyes Reports no additional complaints ENT Reports no additional complaints Card Reports as per HPI Resp Reports no additional complaints GI Reports no additional complaints Reports as per HPI Musc Reports as per HPI Neuro Reports as per HPI Psych Reports no additional complaints Endo Reports no additional complaints Walker/Lymph Reports as per HPI Aller/Immun Reports no additional complaints Physical Exam Const General: cooperative, healthy appearing, comfortable, no acute distress, well developed, alert and awake Orientation/consciousness: patient oriented x3 Limitations: wheelchair HEENT Head: Yes normal to inspection Eyes General: appearance normal, both eyes and all related structures Neck Neck: Yes normal visual inspection Chest Chest palpation & inspection: normal inspection of the chest Resp Effort & Inspection: normal respiratory effort Cardio Rate: regular rate GI Inspection: Yes normal to inspection General: Yes no CVA tenderness Back/Spine/Pelvis Back: no CVA tenderness Skin General skin exam: no rashes or lesions noted Neuro General: patient oriented x3 Extrem General: Yes normal to inspection Psych Appearance: grossly normal and well kempt Speech and movement: Clear speech present Attitude: cooperative Thought process: Normal thought process present Thought content: Normal thought content present Insight: Fair insight present (Psych) Judgement: Fair judgement present (Psych) Results AMB Urinalysis, Automated UA Leukoctes 500 Chey/uL Last Edit by Cathy Morel on 06/26/24 11:37 UA Nitrite Positive Last Edit by Cathy Morel on 06/26/24 11:37 UA Urobilinogen 0.2 mg/dL Last Edit by Responsible Citytyra on 06/26/24 11:37 UA Protein 15 mg/dL Last Edit by Responsible Citytyra on 06/26/24 11:37 UA pH 6.0 Last Edit by BondandDeniyeny Morel on 06/26/24 11:37 UA Blood 25 Yuval/uL Last Edit by Responsible Citytyra on 06/26/24 11:37 UA Specific [place] 1.020 Last Edit by BondandDeniyeny Morel on 06/26/24 11:37 UA Ketone Negative Last Edit by Responsible Citytyra on 06/26/24 11:37 UA Bilirubin 0 mg/dL Last Edit by Responsible Citytyra on 06/26/24 11:37 UA Glucose 0 mg/dL Last Edit by BondandDeniyeny Morel on 06/26/24 11:37 Results Reviewed Results Reviewed: Laboratory Last Values Urine pH (Auto) 6.0 06/26/24 11:26 Specific [place] (Auto) 1.020 06/26/24 11:26 Urine Protein (Auto) 15 mg/dL 06/26/24 11:26 Glucose (UA)(Auto) 0 mg/dL 06/26/24 11:26 Urine Ketones (Auto) Negative 06/26/24 11:26 Urine Blood (Auto) 25 Yuval/uL 06/26/24 11:26 Urine Nitrite (Auto) Positive 06/26/24 11:26 Urine Bilirubin (Auto) 0 mg/dL 06/26/24 11:26 Urine Urobilinogen (Auto) 0.2 mg/dL 06/26/24 11:26 Leukocyte Esterase (Auto) 500 Chey/uL 06/26/24 11:26 Assessment & Plan Assessment & Plan (1) Recurrent UTI (urinary tract infection): Code(s): N39.0 - Urinary tract infection, site not specified Category: Medical (2) Neurogenic bladder: Code(s): N31.9 - Neuromuscular dysfunction of bladder, unspecified Category: Medical (3) UTI (urinary tract infection): Code(s): N39.0 - Urinary tract infection, site not specified Category: Medical Plan In office urinalysis results reviewed with the patient today; as noted above; will send for urine culture. Start levofloxacin as discussed and prescribed. Discussed holding methenamine and vitamin-C while on treatment for urinary tract infection. He reports be happy with current voiding parameters on 5 mg of oxybutynin daily; will continue; refill provided. Continue CIC 4-6 times per day as discussed. Discussed obtaining near future PSA for further assessment evaluation however will await given current urinary tract infection. Discussed, educated, and stressed the importance of adequate hydration in relation to urinary tract infection as well as overall health and well-being. Discussed at length potential causes of recurrent urinary tract infections. Follow-up in 3 months with lab to be completed prior; or sooner with any issues, concerns, and or questions. Orders: Orders AMB Post Void Residual by ultrasound Today N39.0 - Urinary tract infection, site not specified AMB Urinalysis Automated Today Z13.9 - Encounter for screening, unspecified Urine Culture Today N39.0 - Urinary tract infection, site not specified Medications: Changed From levofloxacin 750 mg PO DAILY 5 days 5 tabs 1RF N39.0 - Urinary tract infection, site not specified To levofloxacin Patient was educated to hold methenamine and vitamin-C while on treatment dose for urinary tract infection 750 mg PO DAILY 7 tabs 1RF 5 days N39.0 - Urinary tract infection, site not specified Refilled oxybutynin chloride ER 5 mg PO DAILY 90 tabs 1RF 90 days N32.81 - Overactive bladder, N39.0 - Urinary tract infection, site not specified, R39.15 - Urgency of urination Patient Instructions: The patient had an opportunity to ask questions regarding the treatment plan. All questions were answered. Physical exam, labs, and imaging were discussed and reviewed in detail. As well as risks, benefits, and discussion of treatment choices. No major barriers to understanding were identified. The patient expressed understanding and agreement with the above treatment plan. The patient was made aware they should contact our office by phone for worsening of their current condition, the appearance of new symptoms, or with any questions or concerns. Compliance is encouraged with any medications and follow up testing that is ordered. It is a privilege to be allowed the opportunity to participate in? your urological care.? Again, if you have any questions or concerns If you have any questions or concerns please do not hesitate to contact me. The office is [phone]. This note is constructed using voice recognition software. While every effort has been made to ensure accuracy application tester errors may have been included. Yours sincerely, RINKU Salcido Coding Level of Care Code Est Pt Level 4 (84842) Diagnoses Recurrent UTI (urinary tract infection) N39.0 Neurogenic bladder N31.9 UTI (urinary tract infection) N39.0
== END 2024-06-26 11:49 | disposition home or self-care (01) ==
LOC: HO.HUSH 11:13
PROVIDERS: PCP Internal Medicine; Visit Provider Nurse Practitioner Family
DX: N39.0 Urinary tract infection, site not specified (principal); N31.9 Neuromuscular dysfunction of bladder, unspecified; Z13.9 Encounter for screening, unspecified
CPT/HCPCS: 99214

== ENCOUNTER 2024-06-26 11:13 | Outpatient (REF) | payer MEDICARE, SELFPAY | END 2024-06-26 11:14 | disposition home or self-care (01) | LOC: HO.LNP 11:13 | PROVIDERS: PCP Internal Medicine; Visit Provider Nurse Practitioner Family | DX: N39.0 Urinary tract infection, site not specified (principal); N31.9 Neuromuscular dysfunction of bladder, unspecified; I26.99 Other pulmonary embolism without acute cor pulmonale; Z51.81 Encounter for therapeutic drug level monitoring; Z79.01 Long term (current) use of anticoagulants | CPT/HCPCS: 81003; 85610; 87086; 87088; 87186; 99211; 99212 ==

== ENCOUNTER 2024-06-26 11:56 | Outpatient (AMB) | payer MEDICARE, SELFPAY ==
[2024-06-26 12:05] LABS: Prothrombin Time Whole Bld POC 34.2 sec (11.1-13.5); ~PT, ~INR - Anti Coag Clinic 2.8 (0.9-1.1)
--- NOTE | 2024-06-26 12:10 | MHC.OFFVISCO ---
Intake Intake Visit Reasons: Anticoagulation Allergies No Known Allergies Allergy (Mild, Verified 06/26/24 11:58) NOT APPLICABLE Medication List - Last Reconciled 06/26/24 by Janell Suarez RN acetaminophen 500 mg PO Q6H PRN ascorbic acid (vitamin C) (Vitamin C) 1,000 mg (2 x 500 mg) PO DAILY 90 days baclofen pump orally per md lazar for pump; bisacodyl (Dulcolax (bisacodyl)) 10 mg (2 x 5 mg) PO BEDTIME 2 days clonazepam 0 mg PO diclofenac sodium 1% topical lanolin nohwqnq-kn-l.pet-ceres (Minerin Creme topical) appl topical BID lidocaine HCl 2% mL topical TID lidocaine HCl 2% mL topical methenamine hippurate 1 g orally t tab daily per pt; methenamine hippurate 1 g PO DAILY 90 days naloxone 4 mg/actuation 0 sprays intranasal oxybutynin chloride ER 5 mg PO DAILY 90 days peg 3350-electrolytes 236-22.74-6.74 -5.86 gram (Golytely) 240 mL PO Q10M 1 day psyllium husk (aspartame) 3 gram/5.8 gram (Reguloid (aspartame)) grams PO DAILY PRN varicella-zoster gE vac,2 of 2 (Shingrix gE Antigen Component) IM warfarin 3 mg See Protocol PO DAILY zolpidem 5 mg PO BEDTIME PRN Nursing Note INR: 2.8 in therapeutic range Medications and supplements reviewed *pt came to clinic today 12noon from urology - he is starting another antbx levofloxacin for another UTI - it can raise the INR Denies any signs and symptoms of bleeding or bruising or clotting. Bleeding, bruising, clotting discussed Nutritional guidance given - eat an extra green next week because the antbx can raise your INR Dose: decrease dose later this week 1.5mg wed - sat then resume usual dose next week 1.5mg x 3 days/ 3mg x 4 days with extra greens F/U INR: 2 weeks Patient verbalizes understanding of instructions given Anti-Coag Initial Assessment Social Hx Patient Tobacco Use Status: Former Tobacco user Alcohol intake frequency: does not drink Coding Level of Care Code Est Patient Level 1 Diagnoses Current use of anticoagulant therapy Z79.01 Results AMB Urinalysis, Automated UA Leukoctes 500 Chey/uL Last Edit by Cathy Peraltatyra on 06/26/24 11:37 UA Nitrite Positive Last Edit by Cathy Morel on 06/26/24 11:37 UA Urobilinogen 0.2 mg/dL Last Edit by Cathy Morel on 06/26/24 11:37 UA Protein 15 mg/dL Last Edit by Cathy Morel on 06/26/24 11:37 UA pH 6.0 Last Edit by Karantita Kathryntyra on 06/26/24 11:37 UA Blood 25 Yuval/uL Last Edit by Cathy Morel on 06/26/24 11:37 UA Specific [place] 1.020 Last Edit by Cathy Morel on 06/26/24 11:37 UA Ketone Negative Last Edit by Cathy Morel on 06/26/24 11:37 UA Bilirubin 0 mg/dL Last Edit by Cathy Morel on 06/26/24 11:37 UA Glucose 0 mg/dL Last Edit by Cathy Morel on 06/26/24 11:37 Assessment & Plan Assessment & Plan (1) Current use of anticoagulant therapy: Code(s): Z79.01 - retirement (current) use of anticoagulants Category: Medical Medications: New levofloxacin 750 mg PO DAILY
== END 2024-06-26 13:24 | disposition home or self-care (01) ==
LOC: HO.ACS 11:56
PROVIDERS: PCP Internal Medicine; Visit Provider Internal Medicine
DX: Z79.01 Long term (current) use of anticoagulants (principal)

== ENCOUNTER 2024-06-29 18:03 | Emergency (ER) | payer MEDICARE, SELFPAY ==
[2024-06-29 18:15] VITALS: BP 140/81; PULSE 74; O2SAT 100
--- NOTE | 2024-06-29 18:26 | ED.GENADULT ---
HPI - General Adult General Chief complaint: Urogenital-Male Stated complaint: HAD UTI 05/17/24, FEELS LIKE MEDS DIDNT WORK Time Seen by Provider: 06/29/24 18:22 Source: patient Mode of arrival: EMS Limitations: no limitations History of Present Illness HPI narrative: PMH of paraplegia, DVT on Coumadin, urinary tract infections, meningitis, neurogenic bladder does self catheterization, With, recurrent urinary tract infections on Levaquin since 06/26 for UTI which has E coli and Serratia resistant to levaquin started on fosfomycin which he has not taken a dose yet patient does feel discomfort suprapubic no fever no chills no nausea no vomiting Related Data Home Medications ?Medication ?Instructions ?Recorded ?Confirmed varicella-zoster gE vac,2 of 2 50 IM 04/04/21 06/26/24 mcg IM suspension (Shingrix gE Antigen Component) clonazepam 1 mg tablet 0 mg PO 08/08/21 06/26/24 psyllium husk (aspartame) 3 g PO DAILY PRN constipation 08/08/21 06/26/24 gram/5.8 gram oral powder (Reguloid (aspartame)) lanolin alcohols-mineral appl topical BID 08/18/21 06/26/24 oil-w.petrolatum-ceresin topical cream (Minerin Creme topical) lidocaine HCl 2 % mucosal jelly ml topical TID 03/10/22 06/26/24 naloxone 4 mg/actuation nasal spray 0 spray intranasal 11/30/22 06/26/24 lidocaine HCl 2 % mucosal jelly in ml topical 04/13/23 06/26/24 applicator baclofen 20 mg tablet See Rx Instructions PO .COMPLEX 01/21/24 06/26/24 acetaminophen 500 mg tablet 500 mg PO Q6H PRN 06/08/24 06/26/24 diclofenac sodium 1 % topical gel topical 06/08/24 06/26/24 zolpidem 5 mg tablet 5 mg PO BEDTIME PRN 06/08/24 06/26/24 levofloxacin 750 mg tablet 750 mg PO DAILY 06/26/24 06/26/24 Previous Rx's ?Medication ?Instructions ?Recorded warfarin 3 mg tablet 3 mg PO DAILY #90 tabs 08/08/20 bisacodyl 5 mg tablet,delayed 10 mg (2 x 5 mg) PO BEDTIME 2 days 08/18/21 release (Dulcolax (bisacodyl)) #4 tabs ascorbic acid (vitamin C) 500 mg 1,000 mg (2 x 500 mg) PO DAILY 90 01/25/24 tablet (Vitamin C) days #180 tabs methenamine hippurate 1 gram tablet 1 g PO DAILY 90 days #90 tabs 01/25/24 peg 3350-electrolytes 236 240 ml PO Q10M 1 day #4,000 mL 05/02/24 gram-22.74 gram-6.74 gram-5.86 gram solution (Golytely) oxybutynin chloride 5 mg 5 mg PO DAILY 90 days #90 tabs 06/26/24 tablet,extended release 24 hr fosfomycin tromethamine 3 gram 1 packet PO .weekly UTI 06/29/24 oral packet suppression 12 weeks #12 ea fosfomycin tromethamine 3 gram 3 g PO Q3D 9 days #3 ea 06/29/24 oral packet Allergies Allergy/AdvReac Type Severity Reaction Status Date / Time No Known Allergies Allergy Mild NOT Verified 06/29/24 18:42 APPLICABLE Review of Systems Review of Systems: Yes all other systems are reviewed and are negative PMFSH Past Medical History Medical History Paraplegia DVT (deep venous thrombosis) UTI (urinary tract infection) Hx of meningitis Renal cyst, acquired Neurogenic bladder Surgical History History of colonoscopy H/O abdominal surgery Social History Social History Patient Tobacco Use Status: Former Tobacco user Smoked in Last 30 Days: No Use of substances other than those prescribed or required for medical reasons: No Advance Directives: No Advance Directives Information Provided: No Do you have a plan to hurt others: No Plan Physical Exam ED Vital Signs: Vital Signs - 24 hr 06/29/24 18:40 06/29/24 19:55 Temperature 98.0 F 98.1 F Pulse Rate 68 61 Respiratory Rate 20 16 Blood Pressure 155/71 H 117/86 Pulse Oximetry 99 99 Oxygen Delivery Method Room Air Room Air BMI result Body Mass Index 24.1 Appearance: Alert. Oriented X3. No acute distress. Eyes: PERRLA, No Nystagmus ENT: Pharynx normal. Oral Mucosa moist Neck: Normal inspection. Neck supple. CVS: Normal heart rate and rhythm. Pulses normal. Respiratory: No respiratory distress. Equal air entry bilateral, no wheezing/rales/rhonchi Abdomen: Soft and nontender. Bowel sounds are present, no mass palpable, no CVA tenderness Skin: Skin warm and dry. Normal skin color. Normal skin turgor. Extremities: No lower extremity edema. No calf tenderness Neuro: Oriented X 3. Paraplegic Medications Administered Discontinued Medications Generic Name Dose Route Start Last Admin Trade Name Freq PRN Reason Stop Dose Admin Sodium Chloride 1,000 mls @ 999 mls/hr 06/29/24 18:47 06/29/24 19:51 Ns IV 06/29/24 19:47 999 mls/hr .Q1H1M ONE Administration Ceftriaxone Sodium 1 gm/ 50 mls @ 100 mls/hr 06/29/24 18:47 06/29/24 19:51 Sodium Chloride IV 06/29/24 19:16 100 mls/hr ONCE ONE Administration Morphine Sulfate 4 mg 06/29/24 19:13 06/29/24 19:41 Morphine Sulfate 4 Mg/Ml Cartridge IVPUSH 06/29/24 19:14 4 mg ONCE ONE Administration Protocol Ondansetron HCl 4 mg 06/29/24 19:13 06/29/24 19:42 Ondansetron Hcl 4 Mg/2 Ml Vial IVPUSH 06/29/24 19:14 4 mg ONCE ONE Administration Medical Decision Making Medical Decision Making [facility] Narrative: Patient has recurrent UTI with neurogenic bladder repeat UA showed only few WBCs no bacteria was given Rocephin advised to continue fosfomycin. Differential Diagnosis Differential Diagnoses: The differential diagnosis associated with the presentation includes UTI/prostatitis Lab Data [facility] Lab Attestation statement: I reviewed the patient's lab results. 06/29/24 19:49 06/29/24 19:49 Labs: Lab Results 06/29/24 06/29/24 Range/Units 19:41 19:49 WBC 6.1 (4.8-10.8) X10*3/uL RBC 5.29 (4.60-5.80) X10*6/uL Hgb 15.1 (14.0-18.0) g/dl Hct 43.7 (42.0-52.0) % MCV 82.6 (80.0-98.0) fL MCH 28.5 (27.0-33.0) pg MCHC 34.6 (31.0-36.0) g/dl RDW 13.2 (11.0-16.0) % Plt Count 181 (160-400) X10*3/uL MPV 9.2 L (9.4-12.4) fL Immature Gran % (Auto) 0.3 (0.0-0.4) % Neut % (Auto) 76.7 H (45-73) % Lymph % (Auto) 14.8 L (20-40) % [place] % (Auto) 7.7 (2-11) % Eos % (Auto) 0.3 (0-4) % Baso % (Auto) 0.2 (0-2) % Lymph # (Auto) 0.9 L (1.2-4.9) X10*3/uL [place] # (Auto) 0.5 (0.1-1.2) X10*3/uL Eos # (Auto) 0.0 (0.0-0.4) X10*3/uL Baso # (Auto) 0.0 (0.0-0.2) X10*3/uL Abs Immat Gran (auto) 0.02 (0.00-0.03) X10*3/uL Absolute Neuts (auto) 4.7 (2.0-8.3) x10*3/uL Absolute Nucleated RBC 0.000 (0.0-0.012) X10*3/uL Nucleated RBC % (auto) 0.0 (0.0-0.2) /100WBC Sodium 134 L (135-145) mmol/L Potassium 3.7 (3.3-5.1) mmol/L Chloride 106 (96-108) mmol/L Carbon Dioxide 17 L (22-29) mmol/L Anion Gap 15 (12-20) BUN 17 H (9-16) mg/dL Creatinine 0.74 (0.5-1.4) mg/dL Estim Creat Clear Calc 86.5 Estimated GFR > 60 Random Glucose 96 (60-115) mg/dL Lactic Acid 2.1 H* (0.5-2.0) mmol/L Calcium 9.5 D (8.4-10.2) mg/dL Total Bilirubin 0.9 (0.0-1.0) mg/dL AST 25 (5-37) U/L ALT 25 (0-40) U/L Alkaline Phosphatase 48 (39-117) U/L Total Protein 6.8 (6.5-8.0) g/dL Albumin 4.3 (3.5-5.0) g/dL Urine Color Yellow Urine Appearance Clear Urine pH 8.5 (5.0-9.0) Ur Specific [place] 1.015 (1.005-1.025) Urine Protein Negative (Neg-Trace) mg/dL Urine Glucose (UA) Negative (Negative) mg/dL Urine Ketones 80 (Negative) mg/dL Urine Blood Negative (Negative) Urine Nitrite Negative (Negative) Ur Leukocyte Esterase Trace H (Negative) Urine RBC 0-2 (0-2) /HPF Urine WBC 0-5 (0-5) /HPF Ur Squamous Epith Cells 0-2 (0-2) /HPF Urine Bacteria None Seen (None Seen) Hyaline Casts 0-2 (0-2) /LPF Discharge Plan Discharge Clinical Impression: Recurrent UTI (urinary tract infection) Patient Disposition: Home, Self-Care Instructions: Urinary Tract Infection in Men (ED) Additional Instructions: Drink plenty of fluids Take fosfomycin as prescribed by urologist Follow with your PCP/urologist Prescriptions: No Action methenamine hippurate 1 gram tablet 1 g PO DAILY 90 Days Qty: 90 1RF fosfomycin tromethamine 3 gram packet 3 g PO Q3D 9 Days Qty: 3 0RF Rx Instructions: One dose (one packet) every 3 days fosfomycin tromethamine 3 gram packet 1 packet PO .weekly 84 Days Qty: 12 0RF Rx Instructions: One dose (one packet) every week for 12 weeks for UTI suppression warfarin 3 mg tablet 3 mg PO DAILY Qty: 90 0RF Protocol: Dose Management Condition: Wednesday (Week One) Dose/Route: 3 mg Instruction: 1 x 3 mg tablet Condition: Wednesday Dose/Route: 1.5 mg Instruction: 0.5 x 3 mg tablets Condition: Wednesday Dose/Route: 3 mg Instruction: 1 x 3 mg tablet Condition: Wednesday Dose/Route: 1.5 mg Instruction: 0.5 x 3 mg tablets Condition: Dose/Route: 1.5 mg Instruction: 0.5 x 3 mg tablets Condition: Wednesday Dose/Route: 1.5 mg Instruction: 0.5 x 3 mg tablets Condition: Wednesday Dose/Route: 1.5 mg Instruction: 0.5 x 3 mg tablets Condition: Wednesday (Week Two) Dose/Route: 3 mg Instruction: 1 x 3 mg tablet Condition: Wednesday Dose/Route: 1.5 mg Instruction: 0.5 x 3 mg tablets Condition: Wednesday Dose/Route: 3 mg Instruction: 1 x 3 mg tablet Condition: Wednesday Dose/Route: 1.5 mg Instruction: 0.5 x 3 mg tablets Condition: Dose/Route: 3 mg Instruction: 1 x 3 mg tablet Condition: Wednesday Dose/Route: 1.5 mg Instruction: 0.5 x 3 mg tablets Condition: Wednesday Dose/Route: 3 mg Instruction: 1 x 3 mg tablet Protocol Text: Adjustment Start Date: Wednesday06/26/24 INR Value: 2.8 INR Date: 06/26/24 Recheck Date: 07/10/24 Additional Instructions: REVIEW FOOD LIST WEEKLY, MAKE SURE TO EAT AN EXRA GREEN NEXT WEEK BECAUSE THE ANTBX MAY RAISE YOUR INR REVISA LA LISTA DE ALIMENTOS SEMANALMENTE, ASEG?RATE DE COMER UN EXRA VALERI LA FL?XIMA SEMANA PORQUE EL ANTBX PUEDE AUMENTAR TU INR baclofen 20 mg tablet See Rx Instructions PO .COMPLEX Rx Instructions: pump orally per md lazar for pump; Shinosbaldo gE Antigen Component 50 mcg suspension for reconstitution IM bisacodyl [Dulcolax (bisacodyl)] 5 mg tablet,delayed release (DR/EC) 10 mg PO BEDTIME 2 Days Qty: 4 0RF Minerin Creme Cream topical BID clonazepam 1 mg tablet 0 mg PO Reguloid (aspartame) 3 gram/5.8 gram powder PO DAILY PRN (Reason: constipation) lidocaine HCl 2 % jelly topical TID naloxone 4 mg/actuation spray,non-aerosol 0 spray intranasal ascorbic acid (vitamin C) [Vitamin C] 500 mg tablet 1,000 mg PO DAILY 90 Days Qty: 180 1RF peg 3350-electrolytes [Golytely] 236-22.74-6.74 -5.86 gram recon soln 240 ml PO Q10M 1 Days Qty: 4000 0RF Rx Instructions: until fecal effluent is clear; do not exceed a total volume of 2,000 mL lidocaine HCl 2 % jelly in applicator topical oxybutynin chloride 5 mg tablet extended release 24hr 5 mg PO DAILY 90 Days Qty: 90 1RF zolpidem 5 mg tablet 5 mg PO BEDTIME PRN diclofenac sodium 1 % gel topical acetaminophen 500 mg tablet 500 mg PO Q6H PRN levofloxacin 750 mg tablet 750 mg PO DAILY Patient Comments: pt states he will be taking it either 5-7 days Print Language: Irish
[2024-06-29 18:40] VITALS: BP 155/71; PULSE 68; RESP 20; TEMP 36.7; O2SAT 99; BMI 24.1
[2024-06-29] MEDS: Morphine Sulfate 4 MG/ML CARTRIDGE IVPUSH (19:41)
[2024-06-29] MEDS: ondansetron HCL 4 MG/2 ML VIAL IVPUSH (19:42)
[2024-06-29] MEDS: 0.9 % Sodium Chloride 1,000 ML 999 ML IV (19:51)
[2024-06-29] MEDS: cefTRIAXone sodium 1 GM in 0.9 % Sodium Chloride 50 ML IV (19:51)
[2024-06-29 19:55] VITALS: BP 117/86; PULSE 61; RESP 16; TEMP 36.7; O2SAT 99
[2024-06-29 19:56] LABS: MANUAL DIFF FLAG NO
[2024-06-29 20:04] LABS: Appearance Urine Clear; Color Urine Yellow; Glucose Urine UA Negative (Negative); Leukocyte Esterase Urine Trace (Negative); Nitrite Urine Negative (Negative); PH 8.5 (5.0-9.0); Specific Gravity - Urine 1.015 (1.005-1.025); UMIC TRIGGER UACC YES; Urine Blood Negative (Negative); Urine Ketones 80 mg/dL (Negative); Urine Protein Negative (Neg-Trace)
[2024-06-29 20:06] LABS: Basophils Percent Auto 0.2 % (0-2); Eosinophils Percent Auto 0.3 % (0-4); Hematocrit 43.7 % (42.0-52.0); Hemoglobin 15.1 g/dl (14.0-18.0); Imm Gran Abs Auto 0.02 X10*3/uL (0.00-0.03); Imm Gran Pct Auto 0.3 % (0.0-0.4); Lymphocytes Absolute Auto 0.9 X10*3/uL (1.2-4.9); Lymphocytes Percent Auto 14.8 % (20-40); Mean Corpuscular HGB Conc 34.6 g/dl (31.0-36.0); Mean Corpuscular Hemoglobin 28.5 pg (27.0-33.0); Mean Corpuscular Volume 82.6 fL (80.0-98.0); Mean Platelet Volume 9.2 fL (9.4-12.4); Monocytes Absolute Auto 0.5 X10*3/uL (0.1-1.2); Monocytes Percent Auto 7.7 % (2-11); Neutrophils Absolute Auto 4.7 x10*3/uL (2.0-8.3); Neutrophils Percent Auto 76.7 % (45-73); Platelet Count 181 X10*3/uL (160-400); Red Blood Count 5.29 X10*6/uL (4.60-5.80); Red Cell Distribution Width 13.2 % (11.0-16.0); White Blood Count 6.1 X10*3/uL (4.8-10.8)
[2024-06-29 20:16] LABS: Alanine Aminotransferase 25 U/L (0-40); Albumin Level 4.3 g/dL (3.5-5.0); Alkaline Phosphatase 48 U/L (39-117); Anion Gap 15 (12-20); Aspartate Amino Transferase 25 U/L (5-37); Bilirubin Total 0.9 mg/dL (0.0-1.0); Blood Urea Nitrogen 17 mg/dL (9-16); Calcium 9.5 mg/dL (8.4-10.2); Carbon Dioxide 17 mmol/L (22-29); Chloride 106 mmol/L (96-108); Creatinine Clr Calc Pharmacy 86.5; Estimated Glomerular Filt Rate > 60; Glucose Random 96 mg/dL (60-115); Potassium 3.7 mmol/L (3.3-5.1); Sodium 134 mmol/L (135-145); Total Protein 6.8 g/dL (6.5-8.0)
[2024-06-29 20:16] LABS: Bacteria Urine None Seen (None Seen); Hyaline Casts Urine 0-2 /LPF (0-2); RBC Urine 0-2 /HPF (0-2); Squamous Epithelial Cell Urine 0-2 /HPF (0-2); WBC Urine 0-5 /HPF (0-5)
[2024-06-29 20:20] LABS: Lactic Acid 2.1 mmol/L (0.5-2.0)
[2024-06-29 20:39] VITALS: BP 136/73; PULSE 87; RESP 20; TEMP 37.2; O2SAT 99
[2024-06-29] MEDS: HYDROmorphone HCl 2 MG TABLET 1 MG PO (21:09)
[2024-06-29 21:10] VITALS: BP 110/62; PULSE 79; RESP 16; TEMP 36.7; O2SAT 96
[2024-06-29 21:54] LABS: Reflex Lactate? Lactic Acid Added
[2024-06-29 22:27] VITALS: BP 110/62; PULSE 79; RESP 16; TEMP 36.7; O2SAT 96
== END 2024-06-29 22:30 | disposition home or self-care (01) ==
PROVIDERS: Emergency Provider Internal Medicine; PCP Internal Medicine
DX: N39.0 Urinary tract infection, site not specified (principal); Z79.899 Other long term (current) drug therapy; Z79.01 Long term (current) use of anticoagulants; Z87.891 Personal history of nicotine dependence
CPT/HCPCS: 36415; 80053; 81001; 83605; 85025; 87040; 96374; 96375; 99284; 99285; J0696; J2270; J2405

== ENCOUNTER 2024-07-02 17:44 | Emergency (ER) | payer MEDICARE, SELFPAY ==
[2024-07-02 17:58] VITALS: BP 145/56; PULSE 74; RESP 16; TEMP 36.8; O2SAT 99; BMI 21.9
[2024-07-02 18:19] LABS: MANUAL DIFF FLAG NO
[2024-07-02 18:21] LABS: Appearance Urine Clear; Basophils Percent Auto 0.2 % (0-2); Color Urine Yellow; Eosinophils Absolute Auto 0.1 X10*3/uL (0.0-0.4); Eosinophils Percent Auto 0.9 % (0-4); Glucose Urine UA Negative (Negative); Hematocrit 41.8 % (42.0-52.0); Hemoglobin 14.5 g/dl (14.0-18.0); Imm Gran Abs Auto 0.03 X10*3/uL (0.00-0.03); Imm Gran Pct Auto 0.5 % (0.0-0.4); Leukocyte Esterase Urine Negative (Negative); Lymphocytes Absolute Auto 1.4 X10*3/uL (1.2-4.9); Lymphocytes Percent Auto 24.4 % (20-40); Mean Corpuscular HGB Conc 34.7 g/dl (31.0-36.0); Mean Corpuscular Hemoglobin 28.8 pg (27.0-33.0); Mean Corpuscular Volume 82.9 fL (80.0-98.0); Mean Platelet Volume 9.2 fL (9.4-12.4); Monocytes Absolute Auto 0.6 X10*3/uL (0.1-1.2); Monocytes Percent Auto 10.5 % (2-11); Neutrophils Absolute Auto 3.7 x10*3/uL (2.0-8.3); Neutrophils Percent Auto 63.5 % (45-73); Nitrite Urine Negative (Negative); Platelet Count 170 X10*3/uL (160-400); Red Blood Count 5.04 X10*6/uL (4.60-5.80); Red Cell Distribution Width 13.6 % (11.0-16.0); Specific Gravity - Urine <= 1.005 (1.005-1.025); Urine Blood Negative (Negative); Urine Ketones Trace mg/dL (Negative); Urine Protein Negative (Neg-Trace); White Blood Count 5.7 X10*3/uL (4.8-10.8)
--- NOTE | 2024-07-02 18:33 | PC.NURSE ---
patient straight cathd himself with own supplied while this RN was out of room, 600ml output, 50 ml post residual on bladder scanner.
[2024-07-02 18:38] LABS: Alanine Aminotransferase 30 U/L (0-40); Albumin Level 4.1 g/dL (3.5-5.0); Alkaline Phosphatase 42 U/L (39-117); Anion Gap 15 (12-20); Aspartate Amino Transferase 36 U/L (5-37); Bilirubin Total 0.7 mg/dL (0.0-1.0); Blood Urea Nitrogen 13 mg/dL (9-16); Calcium 9.4 mg/dL (8.4-10.2); Carbon Dioxide 19 mmol/L (22-29); Chloride 109 mmol/L (96-108); Creatinine Clr Calc Pharmacy 109.8; Estimated Glomerular Filt Rate > 60; Glucose Random 101 mg/dL (60-115); Sodium 139 mmol/L (135-145); Total Protein 6.8 g/dL (6.5-8.0)
--- NOTE | 2024-07-02 21:22 | ED_ITS ---
HPI - Male Genitourinary General Chief complaint: Urogenital-Male Stated complaint: pain from vines catheter Time Seen by Provider: 07/02/24 21:21 Source: patient Mode of arrival: EMS Limitations: no limitations History of Present Illness ED Provider: marino HUDSON Narrative: Patient is paraplegic self catheterize was seen here on 06/29 for bladder spasm but UA was negative for infection comes back as still feeling the spasm patient currently taking fosfomycin no fever no chills no nausea no vomiting Related Data Home Medications ?Medication ?Instructions ?Recorded ?Confirmed varicella-zoster gE vac,2 of 2 50 IM 04/04/21 06/26/24 mcg IM suspension (Shingrix gE Antigen Component) clonazepam 1 mg tablet 0 mg PO 08/08/21 06/26/24 psyllium husk (aspartame) 3 g PO DAILY PRN constipation 08/08/21 06/26/24 gram/5.8 gram oral powder (Reguloid (aspartame)) lanolin alcohols-mineral appl topical BID 08/18/21 06/26/24 oil-w.petrolatum-ceresin topical cream (Minerin Creme topical) lidocaine HCl 2 % mucosal jelly ml topical TID 03/10/22 06/26/24 naloxone 4 mg/actuation nasal spray 0 spray intranasal 11/30/22 06/26/24 lidocaine HCl 2 % mucosal jelly in ml topical 04/13/23 06/26/24 applicator baclofen 20 mg tablet See Rx Instructions PO .COMPLEX 01/21/24 06/26/24 acetaminophen 500 mg tablet 500 mg PO Q6H PRN 06/08/24 06/26/24 diclofenac sodium 1 % topical gel topical 06/08/24 06/26/24 zolpidem 5 mg tablet 5 mg PO BEDTIME PRN 06/08/24 06/26/24 levofloxacin 750 mg tablet 750 mg PO DAILY 06/26/24 06/26/24 Previous Rx's ?Medication ?Instructions ?Recorded warfarin 3 mg tablet 3 mg PO DAILY #90 tabs 08/08/20 bisacodyl 5 mg tablet,delayed 10 mg (2 x 5 mg) PO BEDTIME 2 days 08/18/21 release (Dulcolax (bisacodyl)) #4 tabs ascorbic acid (vitamin C) 500 mg 1,000 mg (2 x 500 mg) PO DAILY 90 01/25/24 tablet (Vitamin C) days #180 tabs methenamine hippurate 1 gram tablet 1 g PO DAILY 90 days #90 tabs 01/25/24 peg 3350-electrolytes 236 240 ml PO Q10M 1 day #4,000 mL 05/02/24 gram-22.74 gram-6.74 gram-5.86 gram solution (Golytely) oxybutynin chloride 5 mg 5 mg PO DAILY 90 days #90 tabs 06/26/24 tablet,extended release 24 hr fosfomycin tromethamine 3 gram 1 packet PO .weekly UTI 06/29/24 oral packet suppression 12 weeks #12 ea fosfomycin tromethamine 3 gram 3 g PO Q3D 9 days #3 ea 06/29/24 oral packet phenazopyridine 200 mg tablet 200 mg PO TID 2 days #6 tabs 07/02/24 (Pyridium) Allergies Allergy/AdvReac Type Severity Reaction Status Date / Time No Known Allergies Allergy Mild NOT Verified 07/02/24 18:01 APPLICABLE Review of Systems 2 Review of Systems: Yes all other systems are reviewed and are negative FORMERLY [facility] Past Medical History Medical History Paraplegia DVT (deep venous thrombosis) UTI (urinary tract infection) Hx of meningitis Renal cyst, acquired Neurogenic bladder Surgical History History of colonoscopy H/O abdominal surgery Social History Social History Patient Tobacco Use Status: Former Tobacco user Advance Directives: No Advance Directives Information Provided: No Do you have a plan to hurt others: No Plan Physical Exam 2 Vital Signs: Vital Signs: Last Vital Signs Temp 98.9 F 07/02/24 23:46 Pulse 56 07/02/24 23:46 Resp 16 07/02/24 23:46 BP 102/53 L 07/02/24 23:46 Pulse Ox 98 07/02/24 23:46 O2 Del Method Room Air 07/02/24 23:46 BMI result Body Mass Index 21.9 Appearance: Alert. Oriented X3. No acute distress. Eyes: No pallor or icterus ENT: Pharynx normal. Oral Mucosa moist Neck: Normal inspection. Neck supple. CVS: Normal heart rate and rhythm. Pulses normal. Respiratory: No respiratory distress. Equal air entry bilateral, no wheezing/rales/rhonchi Abdomen: Soft and nontender. Bowel sounds are present, no mass palpable, no CVA tenderness rectal: Nontender prostate Skin: Skin warm and dry. Normal skin color. Normal skin turgor. Extremities: No lower extremity edema. No calf tenderness Neuro: Oriented X 3. Paraplegia Medications Administered Discontinued Medications Generic Name Dose Route Start Last Admin Trade Name Freq PRN Reason Stop Dose Admin Morphine Sulfate 4 mg 07/02/24 21:23 07/02/24 22:27 Morphine Sulfate 4 Mg/Ml Cartridge IVPUSH 07/02/24 21:24 4 mg ONCE ONE Administration Protocol Ondansetron HCl 4 mg 07/02/24 21:23 07/02/24 22:27 Ondansetron Hcl 4 Mg/2 Ml Vial IVPUSH 07/02/24 21:24 4 mg ONCE ONE Administration Phenazopyridine HCl 200 mg 07/02/24 23:37 07/02/24 23:41 Phenazopyridine Hcl 200 Mg Tablet PO 07/02/24 23:38 200 mg ONCE ONE Administration Medical Decision Making Medical Decision Making MDM Narrative: Patient with bladder spasm with no signs of infection will give him Pyridium for bladder spasm Lab Data [facility] Lab Attestation statement: I reviewed the patient's lab results. 07/02/24 18:13 07/02/24 18:13 Labs: Lab Results 07/02/24 Range/Units 18:13 WBC 5.7 (4.8-10.8) X10*3/uL RBC 5.04 (4.60-5.80) X10*6/uL Hgb 14.5 (14.0-18.0) g/dl Hct 41.8 L (42.0-52.0) % MCV 82.9 (80.0-98.0) fL MCH 28.8 (27.0-33.0) pg MCHC 34.7 (31.0-36.0) g/dl RDW 13.6 (11.0-16.0) % Plt Count 170 (160-400) X10*3/uL MPV 9.2 L (9.4-12.4) fL Immature Gran % (Auto) 0.5 H (0.0-0.4) % Neut % (Auto) 63.5 (45-73) % Lymph % (Auto) 24.4 (20-40) % Sullivan % (Auto) 10.5 (2-11) % Eos % (Auto) 0.9 (0-4) % Baso % (Auto) 0.2 (0-2) % Lymph # (Auto) 1.4 (1.2-4.9) X10*3/uL Sullivan # (Auto) 0.6 (0.1-1.2) X10*3/uL Eos # (Auto) 0.1 (0.0-0.4) X10*3/uL Baso # (Auto) 0.0 (0.0-0.2) X10*3/uL Abs Immat Gran (auto) 0.03 (0.00-0.03) X10*3/uL Absolute Neuts (auto) 3.7 (2.0-8.3) x10*3/uL Absolute Nucleated RBC 0.000 (0.0-0.012) X10*3/uL Nucleated RBC % (auto) 0.0 (0.0-0.2) /100WBC Sodium 139 (135-145) mmol/L Potassium 4.0 (3.3-5.1) mmol/L Chloride 109 H (96-108) mmol/L Carbon Dioxide 19 L (22-29) mmol/L Anion Gap 15 (12-20) BUN 13 (9-16) mg/dL Creatinine 0.62 (0.5-1.4) mg/dL Estim Creat Clear Calc 109.8 Estimated GFR > 60 Random Glucose 101 (60-115) mg/dL Calcium 9.4 (8.4-10.2) mg/dL Total Bilirubin 0.7 (0.0-1.0) mg/dL AST 36 (5-37) U/L ALT 30 (0-40) U/L Alkaline Phosphatase 42 (39-117) U/L Total Protein 6.8 (6.5-8.0) g/dL Albumin 4.1 (3.5-5.0) g/dL Urine Color Yellow Urine Appearance Clear Urine pH 8.0 (5.0-9.0) Ur Specific [place] <= 1.005 (1.005-1.025) Urine Protein Negative (Neg-Trace) mg/dL Urine Glucose (UA) Negative (Negative) mg/dL Urine Ketones Trace (Negative) mg/dL Urine Blood Negative (Negative) Urine Nitrite Negative (Negative) Ur Leukocyte Esterase Negative (Negative) Discharge Plan Discharge Clinical Impression: Bladder spasm Patient Disposition: Home, Self-Care Instructions: Dysuria (ED) Additional Instructions: No signs of infection noticed Continue baclofen for muscle spasm Pyridium for bladder spasm Drink plenty of fluids Prescriptions: New phenazopyridine [Pyridium] 200 mg tablet 200 mg PO TID 2 Days Qty: 6 0RF No Action methenamine hippurate 1 gram tablet 1 g PO DAILY 90 Days Qty: 90 1RF fosfomycin tromethamine 3 gram packet 3 g PO Q3D 9 Days Qty: 3 0RF Rx Instructions: One dose (one packet) every 3 days fosfomycin tromethamine 3 gram packet 1 packet PO .weekly 84 Days Qty: 12 0RF Rx Instructions: One dose (one packet) every week for 12 weeks for UTI suppression warfarin 3 mg tablet 3 mg PO DAILY Qty: 90 0RF Protocol: Dose Management Condition: Wednesday (Week One) Dose/Route: 3 mg Instruction: 1 x 3 mg tablet Condition: Wednesday Dose/Route: 1.5 mg Instruction: 0.5 x 3 mg tablets Condition: Wednesday Dose/Route: 3 mg Instruction: 1 x 3 mg tablet Condition: Wednesday Dose/Route: 1.5 mg Instruction: 0.5 x 3 mg tablets Condition: Dose/Route: 1.5 mg Instruction: 0.5 x 3 mg tablets Condition: Wednesday Dose/Route: 1.5 mg Instruction: 0.5 x 3 mg tablets Condition: Wednesday Dose/Route: 1.5 mg Instruction: 0.5 x 3 mg tablets Condition: Wednesday (Week Two) Dose/Route: 3 mg Instruction: 1 x 3 mg tablet Condition: Wednesday Dose/Route: 1.5 mg Instruction: 0.5 x 3 mg tablets Condition: Wednesday Dose/Route: 3 mg Instruction: 1 x 3 mg tablet Condition: Wednesday Dose/Route: 1.5 mg Instruction: 0.5 x 3 mg tablets Condition: Dose/Route: 3 mg Instruction: 1 x 3 mg tablet Condition: Wednesday Dose/Route: 1.5 mg Instruction: 0.5 x 3 mg tablets Condition: Wednesday Dose/Route: 3 mg Instruction: 1 x 3 mg tablet Protocol Text: Adjustment Start Date: Wednesday06/26/24 INR Value: 2.8 INR Date: 06/26/24 Recheck Date: 07/10/24 Additional Instructions: REVIEW FOOD LIST WEEKLY, MAKE SURE TO EAT AN EXRA GREEN NEXT WEEK BECAUSE THE ANTBX MAY RAISE YOUR INR REVISA LA LISTA DE ALIMENTOS SEMANALMENTE, ASEG?RATE DE COMER UN EXRA VALERI [place]?XIMA SEMANA PORQUE EL ANTBX PUEDE AUMENTAR TU INR baclofen 20 mg tablet See Rx Instructions PO .COMPLEX Rx Instructions: pump orally per md lazar for pump; Shingrix gE Antigen Component 50 mcg suspension for reconstitution IM bisacodyl [Dulcolax (bisacodyl)] 5 mg tablet,delayed release (DR/EC) 10 mg PO BEDTIME 2 Days Qty: 4 0RF Minerin Creme Cream topical BID clonazepam 1 mg tablet 0 mg PO Reguloid (aspartame) 3 gram/5.8 gram powder PO DAILY PRN (Reason: constipation) lidocaine HCl 2 % jelly topical TID naloxone 4 mg/actuation spray,non-aerosol 0 spray intranasal ascorbic acid (vitamin C) [Vitamin C] 500 mg tablet 1,000 mg PO DAILY 90 Days Qty: 180 1RF peg 3350-electrolytes [Golytely] 236-22.74-6.74 -5.86 gram recon soln 240 ml PO Q10M 1 Days Qty: 4000 0RF Rx Instructions: until fecal effluent is clear; do not exceed a total volume of 2,000 mL lidocaine HCl 2 % jelly in applicator topical oxybutynin chloride 5 mg tablet extended release 24hr 5 mg PO DAILY 90 Days Qty: 90 1RF zolpidem 5 mg tablet 5 mg PO BEDTIME PRN diclofenac sodium 1 % gel topical acetaminophen 500 mg tablet 500 mg PO Q6H PRN levofloxacin 750 mg tablet 750 mg PO DAILY Patient Comments: pt states he will be taking it either 5-7 days Interventions: ED Discharge Assessment Last Done: 07/02/24 23:46 Discharge Date/Time: 07/02/24 23:46 Print Language: Arabic
[2024-07-02] MEDS: Morphine Sulfate 4 MG/ML CARTRIDGE IVPUSH (22:27)
[2024-07-02] MEDS: ondansetron HCL 4 MG/2 ML VIAL IVPUSH (22:27)
[2024-07-02 22:29] VITALS: BP 111/45; PULSE 69; RESP 18; O2SAT 99
[2024-07-02 23:33] VITALS: BP 102/53; PULSE 56; RESP 16; TEMP 37.2; O2SAT 98
[2024-07-02] MEDS: Phenazopyridine HCL 200 MG TABLET PO (23:41)
[2024-07-02 23:46] VITALS: BP 102/53; PULSE 56; RESP 16; TEMP 37.2; O2SAT 98
== END 2024-07-02 23:46 | disposition home or self-care (01) ==
PROVIDERS: Emergency Provider Internal Medicine
DX: N32.89 Other specified disorders of bladder (principal); Z79.899 Other long term (current) drug therapy; Z86.718 Personal history of other venous thrombosis and embolism; Z79.01 Long term (current) use of anticoagulants
CPT/HCPCS: 36415; 80053; 81003; 85025; 96374; 96375; 99284; J2270; J2405

== ENCOUNTER 2024-07-11 10:32 | Outpatient (AMB) | payer MEDICARE, SELFPAY ==
[2024-07-11 11:08] LABS: Prothrombin Time Whole Bld POC 28.1 sec (11.1-13.5); ~PT, ~INR - Anti Coag Clinic 2.3 (0.9-1.1)
--- NOTE | 2024-07-11 11:25 | MHC.OFFVISCO ---
Intake Intake Visit Reasons: Anticoagulation Allergies No Known Allergies Allergy (Mild, Verified 07/11/24 11:00) NOT APPLICABLE Medication List - Last Reconciled 07/11/24 by Corazon Lomas RN acetaminophen 500 mg PO Q6H PRN ascorbic acid (vitamin C) (Vitamin C) 1,000 mg (2 x 500 mg) PO DAILY 90 days baclofen pump orally per md lazar for pump; bisacodyl (Dulcolax (bisacodyl)) 10 mg (2 x 5 mg) PO BEDTIME 2 days clonazepam 0 mg PO diclofenac sodium 1% topical fosfomycin tromethamine 3 grams PO Q3D 9 days fosfomycin tromethamine 1 packet PO .weekly 12 weeks lanolin jfidhya-uf-q.pet-ceres (Minerin Creme topical) appl topical BID levofloxacin 750 mg PO DAILY lidocaine HCl 2% mL topical TID lidocaine HCl 2% mL topical methenamine hippurate 1 g PO DAILY 90 days naloxone 4 mg/actuation 0 sprays intranasal oxybutynin chloride ER 5 mg PO DAILY 90 days peg 3350-electrolytes 236-22.74-6.74 -5.86 gram (Golytely) 240 mL PO Q10M 1 day phenazopyridine (Pyridium) 200 mg PO TID PRN 5 days psyllium husk (aspartame) 3 gram/5.8 gram (Reguloid (aspartame)) grams PO DAILY PRN varicella-zoster gE vac,2 of 2 (Shingrix gE Antigen Component) IM warfarin 3 mg See Protocol PO DAILY zolpidem 5 mg PO BEDTIME PRN Nursing Note INR: 2.3 in therapeutic range of 2-3 Medications and supplements reviewed No changes in health, diet, medications, or supplements, Denies any signs and symptoms of bleeding or bruising or clotting. Bleeding, bruising, clotting discussed Nutritional guidance given Dose: 3mg X 4 days and 1.5mg X 3 days F/U INR: 3 weeks Patient verbalizes understanding of instructions given Anti-Coag Initial Assessment Social Hx Patient Tobacco Use Status: Former Tobacco user Alcohol intake frequency: does not drink Coding Level of Care Code Est Patient Level 1 Diagnoses Current use of anticoagulant therapy Z79.01 Results AMB INR Fingerstick AMB INR Fingerstick 2.3 Last Edit by Corazon Lomas RN on 07/11/24 11:25 interface delay Assessment & Plan Assessment & Plan (1) Current use of anticoagulant therapy: Code(s): Z79.01 - longterm (current) use of anticoagulants Category: Medical
== END 2024-07-11 11:31 | disposition home or self-care (01) ==
LOC: HO.ACS 10:32
PROVIDERS: Visit Provider Internal Medicine
DX: Z79.01 Long term (current) use of anticoagulants (principal)

== ENCOUNTER → 2024-07-11 10:32 | Outpatient (BNVA) | payer MEDICARE, SELFPAY | PROVIDERS: Visit Provider Internal Medicine | DX: I26.99 Other pulmonary embolism without acute cor pulmonale (principal); Z79.01 Long term (current) use of anticoagulants; Z51.81 Encounter for therapeutic drug level monitoring | CPT/HCPCS: 85610; 99211 ==

== ENCOUNTER → 2024-07-14 14:08 | Outpatient (BNVA) | payer MEDICARE, SELFPAY | PROVIDERS: Visit Provider Internal Medicine ==

== ENCOUNTER 2024-07-19 10:53 | Emergency (ER) | payer MEDICARE, SELFPAY ==
--- NOTE | ~2024-07-19 | CT_ITS ---
EXAMINATION: CT ABDOMEN AND PELVIS WITH CONTRAST CLINICAL INFORMATION: RLQ abd pain, RUQ PAIN COMPARISON: CT abdomen/pelvis 01/06/24, renal ultrasound 08/19/2020 TECHNIQUE: Multidetector volumetric images were obtained from the superior aspect of the liver through the pubic symphysis following administration 85 mL of Omnipaque 350 intravenous contrast. Sagittal and coronal reformatted images were obtained on the technologist's workstation. Oral contrast: No This CT examination was performed using dose optimization techniques as appropriate, variously including the following: *Automated exposure control *Adjustment of mA and/or kV according to patient size (this includes techniques or standardized protocols for targeted exams where dose is matched to indication/reason for exam; i.e. extremities or head) *Use of iterative reconstruction technique DLP: 337 mGy-cm FINDINGS: LUNG BASES: Dependent bibasilar subsegmental atelectasis. No pleural effusion. Normal-sized heart without pericardial effusion. LIVER, GALLBLADDER, AND BILIARY TREE: The liver is normal in size, shape, and attenuation. No focal hepatic lesion or biliary ductal dilatation is present. The gallbladder is unremarkable with no evidence of radiopaque gallstones, gallbladder wall thickening, or obvious pericholecystic inflammatory changes. PANCREAS: Unremarkable. SPLEEN: Unremarkable. ADRENAL GLANDS: Unremarkable. KIDNEYS AND URETERS: Numerous left renal simple cysts, as before. Left lower pole cortical thinning/scarring, as before. Otherwise, the kidneys are normal in size, shape, and attenuation. No hydronephrosis, hydroureter, or calculi seen. No perinephric stranding. BLADDER: Unremarkable. GASTROINTESTINAL TRACT: The small and large bowel are nondilated. Moderate rectal stool burden. Normal appendix. ABDOMINAL WALL: No significant hernia is appreciated. LYMPH NODES: Normal. VASCULAR: Unremarkable. PELVIC VISCERA: Normal CT appearance of the prostate and seminal vesicles. MUSCULOSKELETAL STRUCTURES: Spinal stimulator generator pack in the right upper quadrant subcutaneous tissue with the lead entering the canal at L2-L3 and terminating at the level T11, as before. Grade 1 retrolisthesis of L5 on S1 again seen. Severe bilateral L5-S1 neural foraminal stenosis. Stable anterior wedge compression deformity of L1. Minor multilevel thoracic lumbar spondylosis and degenerative disc disease. Coccygeal skin thickening, as before. CT/CT abdomen pelvis w IV con IMPRESSION: 1. No acute findings in the abdomen or pelvis to explain patient's symptoms. Normal appendix. 2. Moderate rectal stool burden. 3. Coccygeal skin thickening, as before. Fleischner guidelines were followed. Electronically signed by: Jillian Mike DO 07/19/2024 01:37 PM EDT RP
[2024-07-19 11:01] VITALS: BP 108/68; BP 115/48; PULSE 62; PULSE 69; RESP 16; TEMP 36.4; O2SAT 96; BMI 22.5
--- NOTE | 2024-07-19 11:02 | ED_ITS ---
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 Patient was reportedly found have a blood pressure of 69/39 while at the clinic today. Patient reports he has had lower and middle abdominal pain for the last 2 weeks. He has been having difficulty having a bowel movement, has been constipated requiring straining. He has not had any difficulty self catheterizing himself. No blood in his urine. He has been nauseous but no vomiting. No fevers. He denies any chest pain, shortness of breath, headaches, URI symptoms, lightheadedness or dizziness. Patient was seen here recently on June 29 and July 02 for abdominal pain. His urinalysis was negative for infection. No imaging was done. He was continued on his previously prescribed fosfomycin by his urologist MD elicited complaint: abdominal pain and other (Constipation) Pertinent past history: other (Neurogenic bladder) Related Data Home Medications ?Medication ?Instructions ?Recorded ?Confirmed varicella-zoster gE vac,2 of 2 50 IM 04/04/21 07/14/24 mcg IM suspension (Shingrix gE Antigen Component) clonazepam 1 mg tablet 0 mg PO 08/08/21 07/14/24 psyllium husk (aspartame) 3 g PO DAILY PRN constipation 08/08/21 07/14/24 gram/5.8 gram oral powder (Reguloid (aspartame)) lanolin alcohols-mineral appl topical BID 08/18/21 07/14/24 oil-w.petrolatum-ceresin topical cream (Minerin Creme topical) lidocaine HCl 2 % mucosal jelly ml topical TID 03/10/22 07/14/24 naloxone 4 mg/actuation nasal spray 0 spray intranasal 11/30/22 07/14/24 lidocaine HCl 2 % mucosal jelly in ml topical 04/13/23 07/14/24 applicator baclofen 20 mg tablet See Rx Instructions PO .COMPLEX 01/21/24 07/14/24 acetaminophen 500 mg tablet 500 mg PO Q6H PRN 06/08/24 07/14/24 diclofenac sodium 1 % topical gel topical 06/08/24 07/14/24 zolpidem 5 mg tablet 5 mg PO BEDTIME PRN 06/08/24 07/14/24 Previous Rx's ?Medication ?Instructions ?Recorded warfarin 3 mg tablet 3 mg PO DAILY #90 tabs 08/08/20 bisacodyl 5 mg tablet,delayed 10 mg (2 x 5 mg) PO BEDTIME 2 days 08/18/21 release (Dulcolax (bisacodyl)) #4 tabs ascorbic acid (vitamin C) 500 mg 1,000 mg (2 x 500 mg) PO DAILY 90 01/25/24 tablet (Vitamin C) days #180 tabs methenamine hippurate 1 gram tablet 1 g PO DAILY 90 days #90 tabs 01/25/24 peg 3350-electrolytes 236 240 ml PO Q10M 1 day #4,000 mL 05/02/24 gram-22.74 gram-6.74 gram-5.86 gram solution (Golytely) oxybutynin chloride 5 mg 5 mg PO DAILY 90 days #90 tabs 06/26/24 tablet,extended release 24 hr fosfomycin tromethamine 3 gram 1 packet PO .weekly UTI 06/29/24 oral packet suppression 12 weeks #12 ea fosfomycin tromethamine 3 gram 3 g PO Q3D 9 days #3 ea 06/29/24 oral packet phenazopyridine 200 mg tablet 200 mg PO TID PRN pain 5 days #15 07/05/24 (Pyridium) tabs dicyclomine 10 mg capsule 10 mg PO TID PRN abdominal pain 07/19/24 #20 caps docusate sodium 100 mg capsule 100 mg PO BID #30 caps 07/19/24 (Colace) sennosides 8.6 mg tablet (senna) 8.6 mg PO BEDTIME PRN constipation 07/19/24 #30 tabs Allergies Allergy/AdvReac Type Severity Reaction Status Date / Time No Known Allergies Allergy Mild NOT Verified 07/19/24 11:09 APPLICABLE Review of Systems Review of Systems Yes all other systems are reviewed and are negative [facility] Past Medical History Medical History Paraplegia DVT (deep venous thrombosis) UTI (urinary tract infection) Hx of meningitis Renal cyst, acquired Neurogenic bladder Surgical History History of colonoscopy H/O abdominal surgery Social History Social History Patient Tobacco Use Status: Former Tobacco user Advance Directives: No Advance Directives Information Provided: No Physical Exam ED Vital Signs: Vital Signs - 24 hr 07/19/24 11:01 Temperature 97.5 F Pulse Rate 69 Respiratory Rate 16 Blood Pressure 115/48 L Pulse Oximetry 96 BMI result Body Mass Index 22.5 Appearance: Alert. Oriented X3. No acute distress. Head: normocephalic, atraumatic. Eyes: Pupils equal, round and reactive to light. ENT: Pharynx normal. No tonsillar swelling or exudate. poor dentition Neck: Normal inspection. Neck supple. CVS: Normal heart rate and rhythm. Pulses normal. Respiratory: No respiratory distress. Breath sounds normal. Abdomen: Soft with lower abdominal tenderness with guarding. palpable and visible baclofen pump in the right side of the abdomen without overlying tenderness or erythema. decreased but present +BS x4 Skin: Skin warm and dry. Normal skin color. Normal skin turgor. No rashes. Extremities: No lower extremity edema. No joint swelling. Neuro/psych: Oriented X 3. paraplegic CN II-XII intact. Normal speech and cognition. 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 Blood pressure reportedly 69/39. Blood pressure for EMS was normal. Blood pressure on arrival is normal. Patient is afebrile and not tachycardic. He is hemodynamically stable. He complains of lower abdominal pain. Seen here recently twice for the same. He has some lower abdominal tenderness on examination. He has not had a CT scan since December. Lab work is showing no leukocytosis. LFTs and renal function are within normal limits. Urinalysis is not consistent with infection. CT scan was performed and not show any evidence of acute process. He does have moderate constipation and rectal stool. Was given a suppository and oral laxatives. At this time he is stable for discharge home with increased bowel regimen. Encouraged follow-up with GI and PCP. Differential Diagnosis Differential Diagnoses: The differential diagnosis associated with the presentation includes He GI, pyelonephritis, colitis, constipation, stercoral colitis, diverticulitis Admission/Observation Consideration of admission/observation: Escalation of care including admission/observation considered Lab Data MDM Lab Attestation statement: I reviewed the patient's lab results. No leukocytosis, normal renal function 07/19/24 11:23 07/19/24 11:23 Labs: Lab Results 07/19/24 07/19/24 Range/Units 11:23 14:09 WBC 5.3 (4.8-10.8) X10*3/uL RBC 4.87 (4.60-5.80) X10*6/uL Hgb 14.0 (14.0-18.0) g/dl Hct 41.7 L (42.0-52.0) % MCV 85.6 (80.0-98.0) fL MCH 28.7 (27.0-33.0) pg MCHC 33.6 (31.0-36.0) g/dl RDW 13.1 (11.0-16.0) % Plt Count 181 (160-400) X10*3/uL MPV 9.0 L (9.4-12.4) fL Immature Gran % (Auto) 0.4 (0.0-0.4) % Neut % (Auto) 73.7 H (45-73) % Lymph % (Auto) 16.6 L (20-40) % Wallace % (Auto) 8.5 (2-11) % Eos % (Auto) 0.6 (0-4) % Baso % (Auto) 0.2 (0-2) % Lymph # (Auto) 0.9 L (1.2-4.9) X10*3/uL Wallace # (Auto) 0.5 (0.1-1.2) X10*3/uL Eos # (Auto) 0.0 (0.0-0.4) X10*3/uL Baso # (Auto) 0.0 (0.0-0.2) X10*3/uL Abs Immat Gran (auto) 0.02 (0.00-0.03) X10*3/uL Absolute Neuts (auto) 3.9 (2.0-8.3) x10*3/uL Absolute Nucleated RBC 0.000 (0.0-0.012) X10*3/uL Nucleated RBC % (auto) 0.0 (0.0-0.2) /100WBC Sodium 134 L (135-145) mmol/L Potassium 4.2 (3.3-5.1) mmol/L Chloride 104 (96-108) mmol/L Carbon Dioxide 21 L (22-29) mmol/L Anion Gap 13 (12-20) BUN 15 (9-16) mg/dL Creatinine 0.64 (0.5-1.4) mg/dL Estim Creat Clear Calc 99.7 Estimated GFR > 60 Random Glucose 99 (60-115) mg/dL Calcium 8.9 (8.4-10.2) mg/dL Magnesium 2.0 (1.6-2.6) mg/dL Total Bilirubin 0.7 (0.0-1.0) mg/dL Direct Bilirubin 0.2 (0.0-0.5) mg/dL AST 25 (5-37) U/L ALT 34 (0-40) U/L Alkaline Phosphatase 41 (39-117) U/L Total Protein 6.6 (6.5-8.0) g/dL Albumin 4.1 (3.5-5.0) g/dL Lipase 14 (8-78) U/L Urine Color Yellow Urine Appearance Clear Urine pH 6.5 (5.0-9.0) Ur Specific [place] >= 1.030 H (1.005-1.025) Urine Protein Negative (Neg-Trace) mg/dL Urine Glucose (UA) Negative (Negative) mg/dL Urine Ketones 15 (Negative) mg/dL Urine Blood Negative (Negative) Urine Nitrite Negative (Negative) Ur Leukocyte Esterase Negative (Negative) Influenza Type A (PCR) NEGATIVE (Negative) Influenza Type B (PCR) NEGATIVE (Negative) RSV RNA Qual (PCR) NEGATIVE (Negative) SARS-CoV-2 RNA (RT-PCR) NEGATIVE (Negative) Independent Interpretation I performed an independent interpretation of an: CT Scan Interpretation: CT scan with significant stool burden, no bowel wall thickening or air-fluid levels, no colonic stranding Radiology Impression Discussion of test interpretation with radiology: I have reviewed the radiologist's reading. Radiologist Impression: CT/CT abdomen pelvis w IV con IMPRESSION: 1. No acute findings in the abdomen or pelvis to explain patient's symptoms. Normal appendix. 2. Moderate rectal stool burden. 3. Coccygeal skin thickening, as before. Independent Historian Clinical information obtained from an independent historian. History obtained from or confirmed by: EMS External Record Review External record reviewed: Outpatient record, Prior outpatient labs and Prior outpatient radiology Prescription Management I considered prescription management with: Pain Medication and Antibiotic Chronic Conditions Patient?s care impacted by: Other (Paraplegia, neurogenic bladder) Social Determinants Patient?s care significantly limited by Social Determinants of Health including: Problems related to primary support group and Other Social Determinant of Health Medications Administered Discontinued Medications Generic Name Dose Route Start Last Admin Trade Name Freq PRN Reason Stop Dose Admin Acetaminophen 975 mg 07/19/24 14:54 07/19/24 15:19 Acetaminophen 325 Mg Tablet PO 07/19/24 14:55 975 mg ONCE ONE Administration Bisacodyl 10 mg 07/19/24 13:48 07/19/24 13:59 Bisacodyl 10 Mg Supp.Rect [place] 07/19/24 13:49 10 mg ONCE ONE Administration Dicyclomine HCl 10 mg 07/19/24 14:54 07/19/24 15:20 Dicyclomine Hcl 10 Mg Capsule PO 07/19/24 14:55 10 mg ONCE ONE Administration Morphine Sulfate 4 mg 07/19/24 11:12 07/19/24 11:29 Morphine Sulfate 4 Mg/Ml Cartridge IVPUSH 07/19/24 11:13 4 mg ONCE ONE Administration Protocol Ondansetron HCl 4 mg 07/19/24 11:12 07/19/24 11:29 Ondansetron Hcl 4 Mg/2 Ml Vial IVPUSH 07/19/24 11:13 4 mg ONCE ONE Administration Polyethylene Glycol 17 gm 07/19/24 13:48 07/19/24 14:00 Polyethylene Glycol 3350 17 Gm Powd.Pack PO 07/19/24 13:49 17 gm ONCE ONE Administration Senna 17.2 mg 07/19/24 13:48 07/19/24 15:19 Sennosides Oral Syrup 8.8 Mg/5 Ml PO 07/19/24 13:49 17.2 mg ONCE ONE Administration Simethicone 160 mg 07/19/24 14:54 07/19/24 15:19 Simethicone 80 Mg Tab.Chew PO 07/19/24 14:55 160 mg ONCE ONE Administration Critical Care Time Critical Care Time Critical Care Time: No Discharge Plan Discharge Clinical Impression: Constipation Qualifiers: Constipation type: unspecified constipation type Qualified Code(s): K59.00 - Constipation, unspecified Patient Disposition: Home, Self-Care Instructions: Constipation (DC) Additional Instructions: Your blood pressures today were within normal range. Your lab work was reassuring. Your CT scan showed constipation. Your urine test did not show any evidence of infection. Take the previously prescribed powder laxative from your doctor. Take the prescribed stool softener (colace) and additional laxative (senna) as prescribed for constipation. Take the prescribed dicyclomine as needed for abdominal pain. Make sure drinking plenty of fluids. Add fiber to your diet. Follow-up with your doctor. If you have ongoing abdominal pain, recommend following up with GI. Name and number below. Call for an appointment. If you develop new or worsening symptoms call 911 or come back to the ER for further evaluation. Prescriptions: New dicyclomine 10 mg capsule 10 mg PO TID PRN (Reason: abdominal pain) Qty: 20 0RF docusate sodium [Colace] 100 mg capsule 100 mg PO BID Qty: 30 0RF sennosides [senna] 8.6 mg tablet 8.6 mg PO BEDTIME PRN (Reason: constipation) Qty: 30 0RF No Action methenamine hippurate 1 gram tablet 1 g PO DAILY 90 Days Qty: 90 1RF fosfomycin tromethamine 3 gram packet 3 g PO Q3D 9 Days Qty: 3 0RF Rx Instructions: One dose (one packet) every 3 days fosfomycin tromethamine 3 gram packet 1 packet PO .weekly 84 Days Qty: 12 0RF Rx Instructions: One dose (one packet) every week for 12 weeks for UTI suppression phenazopyridine [Pyridium] 200 mg tablet 200 mg PO TID PRN (Reason: pain) 5 Days Qty: 15 0RF warfarin 3 mg tablet 3 mg PO DAILY Qty: 90 0RF Protocol: Dose Management Condition: Wednesday (Week One) Dose/Route: 3 mg Instruction: 1 x 3 mg tablet Condition: Wednesday Dose/Route: 1.5 mg Instruction: 0.5 x 3 mg tablets Condition: Wednesday Dose/Route: 3 mg Instruction: 1 x 3 mg tablet Condition: Wednesday Dose/Route: 1.5 mg Instruction: 0.5 x 3 mg tablets Condition: Dose/Route: 3 mg Instruction: 1 x 3 mg tablet Condition: Wednesday Dose/Route: 1.5 mg Instruction: 0.5 x 3 mg tablets Condition: Wednesday Dose/Route: 3 mg Instruction: 1 x 3 mg tablet Condition: Wednesday (Week Two) Dose/Route: 3 mg Instruction: 1 x 3 mg tablet Condition: Wednesday Dose/Route: 1.5 mg Instruction: 0.5 x 3 mg tablets Condition: Wednesday Dose/Route: 3 mg Instruction: 1 x 3 mg tablet Condition: Wednesday Dose/Route: 1.5 mg Instruction: 0.5 x 3 mg tablets Condition: Dose/Route: 3 mg Instruction: 1 x 3 mg tablet Condition: Wednesday Dose/Route: 1.5 mg Instruction: 0.5 x 3 mg tablets Condition: Wednesday Dose/Route: 3 mg Instruction: 1 x 3 mg tablet Protocol Text: Adjustment Start Date: Wednesday07/11/24 INR Value: 2.3 INR Date: 07/11/24 Recheck Date: 08/01/24 baclofen 20 mg tablet See Rx Instructions PO .COMPLEX Rx Instructions: pump orally per md lazar for pump; Shingrix gE Antigen Component 50 mcg suspension for reconstitution IM bisacodyl [Dulcolax (bisacodyl)] 5 mg tablet,delayed release (DR/EC) 10 mg PO BEDTIME 2 Days Qty: 4 0RF Minerin Creme Cream topical BID clonazepam 1 mg tablet 0 mg PO Reguloid (aspartame) 3 gram/5.8 gram powder PO DAILY PRN (Reason: constipation) lidocaine HCl 2 % jelly topical TID naloxone 4 mg/actuation spray,non-aerosol 0 spray intranasal ascorbic acid (vitamin C) [Vitamin C] 500 mg tablet 1,000 mg PO DAILY 90 Days Qty: 180 1RF peg 3350-electrolytes [Golytely] 236-22.74-6.74 -5.86 gram recon soln 240 ml PO Q10M 1 Days Qty: 4000 0RF Rx Instructions: until fecal effluent is clear; do not exceed a total volume of 2,000 mL lidocaine HCl 2 % jelly in applicator topical oxybutynin chloride 5 mg tablet extended release 24hr 5 mg PO DAILY 90 Days Qty: 90 1RF zolpidem 5 mg tablet 5 mg PO BEDTIME PRN diclofenac sodium 1 % gel topical acetaminophen 500 mg tablet 500 mg PO Q6H PRN [place] [facility] [place] [facility] [place]Provider Group] Kaylah Foley MD [Primary Care Provider] - Print Language: Portuguese
[2024-07-19 11:27] LABS: MANUAL DIFF FLAG NO
[2024-07-19 11:29] LABS: Basophils Percent Auto 0.2 % (0-2); Eosinophils Percent Auto 0.6 % (0-4); Hematocrit 41.7 % (42.0-52.0); Imm Gran Abs Auto 0.02 X10*3/uL (0.00-0.03); Imm Gran Pct Auto 0.4 % (0.0-0.4); Lymphocytes Absolute Auto 0.9 X10*3/uL (1.2-4.9); Lymphocytes Percent Auto 16.6 % (20-40); Mean Corpuscular HGB Conc 33.6 g/dl (31.0-36.0); Mean Corpuscular Hemoglobin 28.7 pg (27.0-33.0); Mean Corpuscular Volume 85.6 fL (80.0-98.0); Monocytes Absolute Auto 0.5 X10*3/uL (0.1-1.2); Monocytes Percent Auto 8.5 % (2-11); Neutrophils Absolute Auto 3.9 x10*3/uL (2.0-8.3); Neutrophils Percent Auto 73.7 % (45-73); Platelet Count 181 X10*3/uL (160-400); Red Blood Count 4.87 X10*6/uL (4.60-5.80); Red Cell Distribution Width 13.1 % (11.0-16.0); White Blood Count 5.3 X10*3/uL (4.8-10.8)
[2024-07-19] MEDS: ondansetron HCL 4 MG/2 ML VIAL IVPUSH (11:29)
[2024-07-19] MEDS: Morphine Sulfate 4 MG/ML CARTRIDGE IVPUSH (11:29)
[2024-07-19 11:43] LABS: Alanine Aminotransferase 34 U/L (0-40); Albumin Level 4.1 g/dL (3.5-5.0); Alkaline Phosphatase 41 U/L (39-117); Anion Gap 13 (12-20); Aspartate Amino Transferase 25 U/L (5-37); Bilirubin Direct 0.2 mg/dL (0.0-0.5); Bilirubin Total 0.7 mg/dL (0.0-1.0); Blood Urea Nitrogen 15 mg/dL (9-16); Calcium 8.9 mg/dL (8.4-10.2); Carbon Dioxide 21 mmol/L (22-29); Chloride 104 mmol/L (96-108); Creatinine Clr Calc Pharmacy 99.7; Estimated Glomerular Filt Rate > 60; Glucose Random 99 mg/dL (60-115); Lipase 14 U/L (8-78); Potassium 4.2 mmol/L (3.3-5.1); Sodium 134 mmol/L (135-145); Total Protein 6.6 g/dL (6.5-8.0)
[2024-07-19 12:04] LABS: Influenza A PCR NEGATIVE (Negative); Influenza B PCR NEGATIVE (Negative); Resp Syncy Virus RNA Qual PCR NEGATIVE (Negative); SARS COV2 PCR INHOUSE NEGATIVE (Negative)
--- OUTSIDE RECORDS SUMMARY | 2024-07-19 12:27 | XMS_ITS | Continuity of Care Document ---
Author Organization [facility] Address [address] [place] [phone]- Care Team Providers Care Marketing Pr Intern Name Role Phone Not on Staff, PCP Primary Care Physician Unavail able Encounter [facility] Date(s): 06/01/24 - 07/01/24 [facility] [address] [place] [id number]- Allergies, Adverse Reactions, Alerts No Known Allergies Medications baclofen 20 mg oral tablet 20 mg, 1, tablet, By Mouth, 4 times a day, Refills 0, Maintenance, 02/18/21 14:18:00 EDT, Partial fill upon patient request if the prescription is for a schedule II opioid drug. Start Date: 02/18/21 Status: Ordered KlonoPIN 1 mg oral tablet 1.5 tablet = 1.5 mg, By Mouth, Daily in AM, 0 Refills, Maintenance, 02/18/21 14:19:00 EDT, Tablet, Partial fill upon patient request if the prescription is for a schedule II opioid drug. Start Date: 02/18/21 Status: Ordered methenamine hippurate 1 gm oral tablet 0 Refills, Maintenance, 06/01/24 15:07:00 EDT, Partial fill upon patient request if the prescription is for a schedule II opioid drug. Start Date: 06/01/24 Status: Ordered oxybutynin 5 mg/24 hours oral tablet, extended release 1 tablet = 5 mg, TOME 1 TABLETA POR V A ORAL TODOS LOS D Start Date: 03/16/24 Status: Ordered Percocet 5 mg-325 mg oral tablet 1-2 tablets, By Mouth, Every 8 hours, PRN, Refills 0, Tot. Refills 0, Maintenance, as needed for pain, 02/18/21 14:24:00 EDT, Tablet, Partial fill upon patient request if the prescription is for a schedule II opioid drug. Start Date: 02/18/21 Status: Ordered traZODone 50 mg oral tablet 25 mg, 0.5, tablet, By Mouth, Daily at bedtime, # 15 tablet, Refills 0, Maintenance, 12/30/23 14:50:00 EDT, Partial fill upon patient request if the prescription is for a schedule II opioid drug. Start Date: 12/30/23 Status: Ordered warfarin 2 mg oral tablet 1 tablet = 2 mg, By Mouth, Daily, 0 Refills, Maintenance, 04/30/22 12:47:00 EDT, Partial fill upon patient request if the prescription is for a schedule II opioid drug. Start Date: 04/30/22 Status: Ordered Problem List Condition Confirmation Course Effective Dates Status Health St atus Informant Presence of intrathecal baclofen pump Confirmed Active Social History Social History Type Response Smoking Status Never (less than 100 in lifetime) entered on: 11/29/19 Sex Patient Care team information Care Team Personnel Name: John Cedeno DO Position: [facility] Cardiology MD Member Role: Lifetime Consulting Physician Address: Address: [address] [place] [address] [place] [address]- Name: Not on Staff, PCP Position: [facility] Physician (General Medicine) Member Role: PCP Care Team Related Persons Name: JOAN GIL Address: [address] [address] Name: LELE GUILLEN Address: [place], [place] Name: PARMINDER CRAWFORD
--- OUTSIDE RECORDS SUMMARY | 2024-07-19 12:27 | XMS_ITS | Continuity of Care Document ---
Author Organization [facility] Address [address] [place] [phone]- Care Team Providers Care Insurance Consultant Name Role Phone Kristen GIPSON, Redd Perales Primary Care Physician [id number] Date[facility]s): [facility]/20/22 - 09/19/22 [facility] [address] [place] [address]- Attending Physician: Aleksey Pennington Admitting Physician: Aleksey Pennington Referring Physician: Aleksey Pennington Allergies, Adverse Reactions, Alerts No Known Allergies [...] opioid drug. Start Date: 02/18/21 Status: Ordered Percocet 5 mg-325 mg oral tablet 1-2 tablets, By Mouth, Every 8 hours, PRN, Refills 0, Tot. Refills 0, Maintenance, as needed for pain, 02/18/21 14:24:00 EDT, Tablet, Partial fill upon patient request if the prescription is for a schedule II opioid drug. Start Date: 02/18/21 Status: Ordered warfarin 2 mg oral tablet 1 tablet = 2 mg, By Mouth, Daily, 0 Refills, Maintenance, 04/30/22 12:47:00 EDT, Partial fill upon patient request if the prescription is for a schedule II opioid drug. Start Date: 04/30/22 Status: Ordered Social History Social History Type Response Smoking Status Never (less than 100 in lifetime) entered on: 11/29/19 Sex Patient Care team information Care Team Personnel Name: John Cedeno DO Position: [facility] Cardiology MD Member Role: Lifetime Consulting Physician Address: Address: [address] [place] [address] [place] [address]- Name: Redd Peterson NP Position: [facility] Outreach Member Role: PCP Address: Address: [address] [place] [phone]- Care Team Related Persons Name: JOAN GIL Address: home [address] [place] [address]
--- OUTSIDE RECORDS SUMMARY | 2024-07-19 12:27 | XMS_ITS | Continuity of Care Document ---
Author Organization [facility] Address [address] [place] [phone]- Care Team Providers Care Data Management Consultant Name Role Phone Kristen IGPSON, Redd Perales Primary Care Physician [id number] Date(s): 12/30/23 - 01/06/24 [facility] [address] [place] [phone]- Attending Physician: Levi Collins MD Allergies, Adverse Reactions, Alerts No Known Allergies [...] Presence of intrathecal baclofen pump Confirmed Active Vital Signs Most recent to oldest [Reference Range]: 1 Height 165.10 cm (12/30/23 2:51 PM) Oxygen Saturation [94-100 %] 98 % (12/30/23 2:51 PM) Pulse Rate [55-90 bpm] 75 bpm (12/30/23 2:51 PM) Blood Pressure [90-138/55-84 mm Hg] 101/ 58mm Hg (12/30/23 2:51 PM) Mode of Delivery (Oxygen) Room air (12/30/23 2:51 PM) Blood pressure sites Arm, right (12/30/23 2:51 PM) Social History Social History Type Response Smoking Status Never (less than 100 in lifetime) entered on: 11/29/19 Sex Patient Care team information Care Team Personnel Name: John Cedeno DO Position: [facility] Cardiology MD Member Role: Lifetime Consulting Physician Address: Address: [address] [place] [address] [place] [place] [address]- [place] Name: Redd Peterson NP Position: [facility] Outreach Member Role: PCP Address: Address: [address] [place] [phone]- Care Team Related Persons Name: JOAN GIL Address: home [address] [place] [phone] Name: LELE GUILLEN Address: home [place], [place] Name: PARMINDER CRAWFORD
--- OUTSIDE RECORDS SUMMARY | 2024-07-19 12:27 | XMS_ITS | Continuity of Care Document ---
Author Organization [facility] Address [address] [place] [address]- Care Team Providers Care Aniline Press Worker Name Role Phone Not on Staff, PCP Primary Care Physician Unavail able [place] [facility] [place] [facility] [address] [place] [phone]- Attending Physician: Levi Collins MD Referring Physician: Not on Staff, Referring MD Allergies, Adverse Reactions, Alerts No Known [...] oldest [Reference Range]: 1 Height 165.10 cm (06/29/24 3:40 PM) Mode of Delivery (Oxygen) Room air (06/29/24 3:40 PM) Social History Social History Type Response Smoking Status Never (less than 100 in lifetime) entered on: 11/29/19 Sex Patient Care team information Care Team Personnel Name: John Cedeno DO Position: [facility] Cardiology MD Member Role: Lifetime Consulting Physician Address: Address: [address] [place] [address] [place] [address]- Name: Not on Staff, PCP Position: [facility] Physician (General Medicine) Member Role: PCP Care Team Related Persons Name: JOAN GIL Address: home [address] [place] [id number] Name: LELE GUILLEN Address: [place], [place] Name: PARMINDER CRAWFORD
--- OUTSIDE RECORDS SUMMARY | 2024-07-19 12:27 | XMS_ITS | Continuity of Care Document ---
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 Start Date: 04/30/22 Status: Ordered Vital Signs Most recent to oldest [Reference Range]: 1 Height 165.10 cm (08/20/22 9:56 AM) Weight 70.4 kg (08/20/22 9:56 AM) Oxygen Saturation [94-100 %] 99 % (08/20/22 9:56 AM) Pulse Rate [55-90 bpm] 83 bpm (08/20/22 9:56 AM) Body Mass Index [18.5-24.99 kg/m2] 25.83 kg/m2 *H* (08/20/22 9:56 AM) Blood Pressure [90-138/55-84 mm Hg] 92/5 8mm Hg (08/20/22 9:56 AM) Mode of Delivery (Oxygen) Room air (08/20/22 9:56 AM) Blood pressure sites Arm, left (08/20/22 9:56 AM) Social History Social History Type Response Smoking Status Never (less than 100 in lifetime) entered on: 11/29/19 Sex Patient Care team information Care Team Personnel Name: John Cedeno DO Position: [facility] Cardiology MD Member Role: Lifetime Consulting Physician Address: Address: [address] [place] [address] [facility] [place] [address]- Name: Redd Peterson NP Position: [facility] Outreach Member Role: PCP Address: Address: [address] [place] [address]- Care Team Related Persons Name: JOAN GIL Address: home [address] [place] [address]
--- OUTSIDE RECORDS SUMMARY | 2024-07-19 12:27 | XMS_ITS | Continuity of Care Document ---
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 Name Role Phone Not on Staff, PCP Primary Care Physician Unavail able Encounter [facility] Date(s): 06/01/24 - 06/08/24 [facility] [address] [place] [address]- Attending Physician: Levi Collins MD Referring Physician: [...] oldest [Reference Range]: 1 Height 165.10 cm (06/01/24 3:07 PM) Oxygen Saturation [94-100 %] 96 % (06/01/24 3:07 PM) Pulse Rate [55-90 bpm] 70 bpm (06/01/24 3:07 PM) Blood Pressure [90-138/55-84 mm Hg] 131/ 100mm Hg (06/01/24 3:07 PM) Mode of Delivery (Oxygen) Room air (06/01/24 3:07 PM) Blood pressure sites Arm, left (06/01/24 3:07 PM) Social History Social History Type Response Smoking Status Never (less than 100 in lifetime) entered on: 11/29/19 Sex Patient Care team information Care Team Personnel Name: John Cedeno DO Position: [facility] Cardiology MD Member Role: Lifetime Consulting Physician Address: Address: [address] [place] [address] [facility] [place] [address]- Name: Not on Staff, PCP Position: [facility] Physician (General Medicine) Member Role: PCP Care Team Related Persons Name: JOAN GIL Address: home [address] [place] [address] Name: LELE GUILLEN Address: [place], [place] Name: PARMINDER CRAWFORD
--- OUTSIDE RECORDS SUMMARY | 2024-07-19 12:27 | XMS_ITS | Continuity of Care Document ---
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 Name Role Phone Kristen GIPSON, Redd Perales Primary Care Physician Encounter [facility] Date(s): 11/26/22 - 12/03/22 [facility] [address] [place] [address]- Attending Physician: Levi Collins MD Allergies, Adverse [...] oldest [Reference Range]: 1 Height 165.10 cm (11/26/22 3:10 PM) Weight 71.0 kg (11/26/22 3:10 PM) Oxygen Saturation [94-100 %] 98 % (11/26/22 3:10 PM) Pulse Rate [55-90 bpm] 86 bpm (11/26/22 3:10 PM) Body Mass Index [18.5-24.99 kg/m2] 26.05 kg/m2 *H* (11/26/22 3:10 PM) Blood Pressure [90-138/55-84 mm Hg] 133/ 92mm Hg (11/26/22 3:10 PM) Mode of Delivery (Oxygen) Room air (11/26/22 3:10 PM) Blood pressure sites Arm, right (11/26/22 3:10 PM) Social History Social History Type Response Smoking Status Never (less than 100 in lifetime) entered on: 11/29/19 Sex Patient Care team information Care Team Personnel Name: John Cedeno DO Position: [facility] Cardiology MD Member Role: Lifetime Consulting Physician Address: Address: [address] [place] [address] [place] [address]- [place] Name: Redd Peterson NP Position: [facility] Outreach Member Role: PCP Address: Address: [address] [place] [address]- Care Team Related Persons Name: JOAN GIL Address: home [address] [place] [address]
--- OUTSIDE RECORDS SUMMARY | 2024-07-19 12:27 | XMS_ITS | Continuity of Care Document ---
Author Organization [facility] Address [address] [place] [address]- Care Team Providers Care Casey Saw Operator Name Role Phone Not on Staff, PCP Primary Care Physician Unavail able Encounter [facility] Date(s): 03/16/24 - 03/23/24 [facility] [address] [place] [address]- Attending Physician: Levi Collins MD Referring Physician: Kristen GIPSON, Redd Perales Allergies, Adverse Reactions, Alerts No Known Allergies [...] opioid drug. Start Date: 02/18/21 Status: Ordered oxybutynin 5 mg/24 hours oral [...] oldest [Reference Range]: 1 Height 165.10 cm (03/16/24 3:04 PM) Weight 64.7 kg (03/16/24 3:04 PM) Oxygen Saturation [94-100 %] 98 % (03/16/24 3:04 PM) Pulse Rate [55-90 bpm] 201 bpm *H* (03/16/24 3:04 PM) Body Mass Index [18.5-24.99 kg/m2] 23.74 kg/m2 (03/16/24 3:04 PM) Blood Pressure [90-138/55-84 mm Hg] 109/ 92mm Hg (03/16/24 3:04 PM) Respiratory Rate [16-30 br/min] 16 br/mi n (03/16/24 3:04 PM) Blood pressure sites Arm, left (03/16/24 3:04 PM) Weight Obtained Via Bed scale (03/16/24 3:04 PM) Social History Social History Type Response Smoking Status Never (less than 100 in lifetime) entered on: 11/29/19 Sex Patient Care team information Care Team Personnel Name: John Cedeno DO Position: [facility] Cardiology MD Member Role: Lifetime Consulting Physician Address: Address: [address] [place] [address] [place] [address]- Name: Not on Staff, PCP Position: [facility] Physician (General Medicine) Member Role: PCP Care Team Related Persons Name: JOAN GIL Address: home [address] [place] [address] Name: LELE GUILLEN Address: [place], [place] Name: PARMINDER CRAWFORD
--- OUTSIDE RECORDS SUMMARY | 2024-07-19 12:27 | XMS_ITS | Continuity of Care Document ---
Author Organization [facility] Address [address] [place] [address]- Care Team Providers Care Custodial Supervisor Name Role Phone Kristen GIPSON, Redd Perales Primary Care Physician [facility] [id number] Date(s): 07/22/23 - 07/29/23 [facility] [address] [place] [address]- Attending Physician: Levi Collins MD Referring Physician: [...] Team Personnel Name: John Cedeno DO Position: [facility] Cardiology MD Member Role: Lifetime Consulting Physician Address: Address: [address] [place] [address] [place] [address]- Name: Redd Peterson NP Position: [facility] Outreach Member Role: PCP Address: Address: [address] [place] [address]- Care Team Related Persons Name: JOAN GIL Address: home [address] [place] [address] Name: LELE GUILLEN Address: home [place], [place] Name: PARMINDER CRAWFORD
--- OUTSIDE RECORDS SUMMARY | 2024-07-19 12:27 | XMS_ITS | Continuity of Care Document ---
Author Organization [facility] Address [address] [place] [address]- Care Team Providers Care Mine Development Engineer Name Role Phone Kristen GIPSON, Redd Perales Primary Care Physician [phone] Encounter [facility] Date(s): 04/29/23 - 05/06/23 [facility] [address] [place] [address]- Attending Physician: Levi Collins MD Allergies, Adverse [...] oldest [Reference Range]: 1 Height 165.10 cm (04/29/23 4:04 PM) Weight 70.1 kg (04/29/23 4:04 PM) Oxygen Saturation [94-100 %] 98 % (04/29/23 4:04 PM) Pulse Rate [55-90 bpm] 77 bpm (04/29/23 4:04 PM) Body Mass Index [18.5-24.99 kg/m2] 25.72 kg/m2 *H* (04/29/23 4:04 PM) Blood Pressure [90-138/55-84 mm Hg] 77/5 6mm Hg *L* (04/29/23 4:04 PM) Mode of Delivery (Oxygen) Room air (04/29/23 4:04 PM) Blood pressure sites Arm, left (04/29/23 4:04 PM) Weight Obtained Via Bed scale (04/29/23 4:04 PM) Social History Social History Type Response Smoking Status Never (less than 100 in lifetime) entered on: 11/29/19 Sex Patient Care team information Care Team Personnel Name: John Cedeno DO Position: [facility] Cardiology MD Member Role: Lifetime Consulting Physician Address: Address: [address] [place] [address] [facility] [place] [address]- Name: Redd Peterson NP Position: [facility] Outreach Member Role: PCP Address: Address: [address] [place] [address]- Care Team Related Persons Name: JOAN GIL Address: home [address] [place] [address] Name: LELE GUILLEN Address: [place], [place]
--- OUTSIDE RECORDS SUMMARY | 2024-07-19 12:27 | XMS_ITS | Continuity of Care Document ---
Author Organization [facility] Address [address] [place] [address]- Care Team Providers Care Engineer Fishing Vessel Name Role Phone Kristen GIPSON, Redd Perales Primary Care Physician [id number] Date(s): 10/14/23 - 10/21/23 [facility] [address] [place] [address]- Attending Physician: Levi Collins MD Allergies, Adverse [...] oldest [Reference Range]: 1 Height 165.10 cm (10/14/23 2:55 PM) Oxygen Saturation [94-100 %] 98 % (10/14/23 2:55 PM) Pulse Rate [55-90 bpm] 73 bpm (10/14/23 2:55 PM) Blood Pressure [90-138/55-84 mm Hg] 95/5 7mm Hg (10/14/23 2:55 PM) Mode of Delivery (Oxygen) Room air (10/14/23 2:55 PM) Blood pressure sites Arm, left (10/14/23 2:55 PM) Social History Social History Type Response Smoking Status Never (less than 100 in lifetime) entered on: 11/29/19 Sex Patient Care team information Care Team Personnel Name: John Cedeno DO Position: [facility] Cardiology MD Member Role: Lifetime Consulting Physician Address: Address: [address] [place] [address] [facility] [place] [address]- [place] Name: Redd Peterson NP Position: [facility] Outreach Member Role: PCP Address: Address: [address] [place] [address]- Care Team Related Persons Name: JOAN GIL Address: home [address] [place] [address] Name: ELLE GUILLEN Address: home [place], [place] Name: PARMINDER CRAWFORD
[2024-07-19] MEDS: bisacodyL 10 MG SUPP.RECT PR (13:59)
[2024-07-19] MEDS: polyethylene glycoL 3350 17 GM POWD.PACK PO (14:00)
[2024-07-19 14:30] LABS: Appearance Urine Clear; Color Urine Yellow; Glucose Urine UA Negative (Negative); Leukocyte Esterase Urine Negative (Negative); Nitrite Urine Negative (Negative); PH 6.5 (5.0-9.0); Specific Gravity - Urine >= 1.030 (1.005-1.025); Urine Blood Negative (Negative); Urine Ketones 15 mg/dL (Negative); Urine Protein Negative (Neg-Trace)
[2024-07-19] MEDS: Acetaminophen 325 MG TABLET 975 MG PO (15:19)
[2024-07-19] MEDS: Sennosides Oral Syrup 8.8 MG/5 ML 17.2 MG PO (15:19)
[2024-07-19] MEDS: Simethicone 80 MG TAB.CHEW 160 MG PO (15:19)
[2024-07-19] MEDS: Dicyclomine HCl 10 MG CAPSULE PO (15:20)
[2024-07-19 16:17] VITALS: BP 110/47; PULSE 58; RESP 16; TEMP 37.1; O2SAT 98
== END 2024-07-19 17:59 | disposition home or self-care (01) ==
PROVIDERS: Physician Assistant; Emergency Provider Student in an Organized Health Care Education/Training Program; PCP Internal Medicine
DX: K59.00 Constipation, unspecified (principal); Z03.818 Encounter for observation for suspected exposure to other biological agents ruled out; R10.9 Unspecified abdominal pain; G82.20 Paraplegia, unspecified; Z86.718 Personal history of other venous thrombosis and embolism; Z79.01 Long term (current) use of anticoagulants; Z79.899 Other long term (current) drug therapy
CPT/HCPCS: 0241U; 36415; 51701; 74177; 80048; 80076; 81003; 83690; 83735; 85025; 96374; 96375; 99284; J2270; J2405

== ENCOUNTER → 2024-07-28 16:44 | Outpatient (BNVA) | payer MEDICARE, SELFPAY | PROVIDERS: PCP Internal Medicine; Visit Provider Internal Medicine ==

== ENCOUNTER 2024-08-01 10:38 | Outpatient (AMB) | payer MEDICARE, SELFPAY ==
[2024-08-01 11:07] LABS: Prothrombin Time Whole Bld POC 21.5 sec (11.1-13.5); ~PT, ~INR - Anti Coag Clinic 1.8 (0.9-1.1)
--- NOTE | 2024-08-01 11:15 | MHC.OFFVISCO ---
Intake Intake Visit Reasons: Anticoagulation Allergies No Known Allergies Allergy (Mild, Verified 08/01/24 10:57) NOT APPLICABLE Medication List - Last Reconciled 08/01/24 by Janell Suarez RN acetaminophen 500 mg PO Q6H PRN ascorbic acid (vitamin C) (Vitamin C) 1,000 mg (2 x 500 mg) PO DAILY 90 days baclofen pump orally per md lazar for pump; bisacodyl (Dulcolax (bisacodyl)) 10 mg PO BEDTIME PRN calcium polycarbophil (Fiber-Lax) mg PO clonazepam 0 mg PO diclofenac sodium 1% topical dicyclomine 10 mg PO TID PRN docusate sodium (Colace) 100 mg PO BID fosfomycin tromethamine 3 grams PO Q3D 9 days fosfomycin tromethamine 1 packet PO .weekly 12 weeks lanolin poefbed-kn-s.pet-ceres (Minerin Creme topical) appl topical BID lidocaine HCl 2% mL topical TID lidocaine HCl 2% mL topical methenamine hippurate 1 g PO DAILY 90 days naloxone 4 mg/actuation 0 sprays intranasal oxybutynin chloride ER 5 mg PO DAILY 90 days peg 3350-electrolytes 236-22.74-6.74 -5.86 gram (Golytely) 240 mL PO Q10M 1 day phenazopyridine (Pyridium) 200 mg PO TID PRN 5 days psyllium husk (aspartame) 3 gram/5.8 gram (Reguloid (aspartame)) grams PO DAILY PRN sennosides (senna) 8.6 mg PO BEDTIME PRN varicella-zoster gE vac,2 of 2 (Shingrix gE Antigen Component) IM warfarin 3 mg See Protocol PO DAILY zolpidem 5 mg PO BEDTIME PRN Nursing Note INR 1.8?out of therapeutic range Medications and supplements reviewed Patient status: Pt has been having more than constipation that he went to the ER first week of July, he called [facility] last week to discuss meds and supplements that he is now on to assist with constipation plus probiotic, he was advised to not take at the same time as other meds - especially with warfarin. Medications or supplements: see list Diet: good Denies any signs and symptoms of bleeding or clotting or unusual bruising Bleeding, bruising, clotting discussed Nutritional guidance given: avoid greens x 2 days, eat orange and reds for 2 days Dose: 3mg x 5 days this week then resume usual dose 3mg x 4 days/ 1.5mg mwf F/U INR Date: 3 weeks per pt insistence - he is aware of the risks and will call with any s/sx of bleeding or bruising or clotting ?? Patient verbalizing understanding of instructions given. 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
== END 2024-08-01 11:23 | disposition home or self-care (01) ==
LOC: HO.ACS 10:38
PROVIDERS: PCP Internal Medicine; Visit Provider Internal Medicine
DX: Z79.01 Long term (current) use of anticoagulants (principal)

== ENCOUNTER → 2024-08-01 10:38 | Outpatient (BNVA) | payer MEDICARE, SELFPAY | PROVIDERS: PCP Internal Medicine; Visit Provider Internal Medicine | DX: I26.99 Other pulmonary embolism without acute cor pulmonale (principal); Z79.01 Long term (current) use of anticoagulants; Z51.81 Encounter for therapeutic drug level monitoring | CPT/HCPCS: 85610; 99211 ==

== ENCOUNTER 2024-08-22 10:40 | Outpatient (AMB) | payer MEDICARE, SELFPAY ==
[2024-08-22 11:04] LABS: Prothrombin Time Whole Bld POC 18.6 sec (11.1-13.5); ~PT, ~INR - Anti Coag Clinic 1.6 (0.9-1.1)
--- NOTE | 2024-08-22 11:20 | MHC.OFFVISCO ---
Intake Intake Visit Reasons: Anticoagulation Allergies No Known Allergies Allergy (Mild, Verified 08/22/24 10:58) NOT APPLICABLE Medication List - Last Reconciled 08/22/24 by Margarita Stewart RN acetaminophen 500 mg PO Q6H PRN ascorbic acid (vitamin C) (Vitamin C) 1,000 mg (2 x 500 mg) PO DAILY 90 days baclofen pump orally per md lazar for pump; bisacodyl (Dulcolax (bisacodyl)) 10 mg PO BEDTIME PRN calcium polycarbophil (Fiber-Lax) mg PO clonazepam 0 mg PO diclofenac sodium 1% topical dicyclomine 10 mg PO TID PRN docusate sodium (Colace) 100 mg PO BID fosfomycin tromethamine 3 grams PO Q3D 9 days fosfomycin tromethamine 1 packet PO .weekly 12 weeks lanolin zbxhfcz-ge-k.pet-ceres (Minerin Creme topical) appl topical BID lidocaine HCl 2% mL topical TID lidocaine HCl 2% mL topical methenamine hippurate 1 g PO DAILY 90 days naloxone 4 mg/actuation 0 sprays intranasal oxybutynin chloride ER 5 mg PO DAILY 90 days peg 3350-electrolytes 236-22.74-6.74 -5.86 gram (Golytely) 240 mL PO Q10M 1 day phenazopyridine (Pyridium) 200 mg PO TID PRN 5 days [PROBIOTIC PO] psyllium husk (aspartame) 3 gram/5.8 gram (Reguloid (aspartame)) grams PO DAILY PRN sennosides (senna) 8.6 mg PO BEDTIME PRN varicella-zoster gE vac,2 of 2 (Shingrix gE Antigen Component) IM warfarin 3 mg See Protocol PO DAILY zolpidem 5 mg PO BEDTIME PRN Nursing Note PT.IS UNSURE IF HEN HAS RECENTLY MISSED A DOSE. NO CP,SOB,DIET/MED CHANGES,OR SX OF BLEEDING. BOOST TODAY AND TOMORROW THEN RESUME USUAL DOSE AND FOLLOW-UP IN 3 WEEKS(REFUSES EARLIER TIME) GOOD UNBDERSTANDING OF DOSING INSTR. PT. 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
== END 2024-08-22 11:22 | disposition home or self-care (01) ==
LOC: HO.ACS 10:40
PROVIDERS: PCP Internal Medicine; Visit Provider Internal Medicine
DX: Z79.01 Long term (current) use of anticoagulants (principal)

== ENCOUNTER → 2024-08-22 10:40 | Outpatient (BNVA) | payer MEDICARE, SELFPAY | PROVIDERS: PCP Internal Medicine; Visit Provider Internal Medicine | DX: I26.99 Other pulmonary embolism without acute cor pulmonale (principal); Z79.01 Long term (current) use of anticoagulants; Z51.81 Encounter for therapeutic drug level monitoring | CPT/HCPCS: 85610; 99211 ==

== ENCOUNTER 2024-09-11 13:15 | Outpatient (AMB) | payer MEDICARE, SELFPAY ==
[2024-09-11 14:00] LABS: Prothrombin Time Whole Bld POC 16.5 sec (11.1-13.5); ~PT, ~INR - Anti Coag Clinic 1.4 (0.9-1.1)
--- NOTE | 2024-09-11 14:13 | MHC.OFFVISCO ---
Intake Intake Visit Reasons: Anticoagulation Allergies No Known Allergies Allergy (Mild, Verified 09/11/24 13:57) NOT APPLICABLE Medication List - Last Reconciled 09/11/24 by Corazon Lomas RN acetaminophen 500 mg PO Q6H PRN ascorbic acid (vitamin C) (Vitamin C) 1,000 mg (2 x 500 mg) PO DAILY 90 days baclofen pump orally per md lazar for pump; bisacodyl (Dulcolax (bisacodyl)) 10 mg PO BEDTIME PRN calcium polycarbophil (Fiber-Lax) mg PO clonazepam 0 mg PO clonazepam mg PO diclofenac sodium 1% topical dicyclomine 10 mg PO TID PRN docusate sodium (Colace) 100 mg PO BID fosfomycin tromethamine 3 grams PO Q3D 9 days fosfomycin tromethamine 1 packet PO .weekly 12 weeks lanolin nftftmg-ix-k.pet-ceres (Minerin Creme topical) appl topical BID lidocaine HCl 2% mL topical TID lidocaine HCl 2% mL topical methenamine hippurate 1 g PO DAILY 90 days naloxone 4 mg/actuation 0 sprays intranasal oxybutynin chloride ER 5 mg PO DAILY 90 days peg 3350-electrolytes 236-22.74-6.74 -5.86 gram (Golytely) 240 mL PO Q10M 1 day phenazopyridine (Pyridium) 200 mg PO TID PRN 5 days [PROBIOTIC PO] psyllium husk (aspartame) 3 gram/5.8 gram (Reguloid (aspartame)) grams PO DAILY PRN sennosides (senna) 8.6 mg PO BEDTIME PRN varicella-zoster gE vac,2 of 2 (Shingrix gE Antigen Component) IM warfarin 3 mg See Protocol PO DAILY zolpidem 5 mg PO BEDTIME PRN Nursing Note INR: 1.4 out of therapeutic range Medications and supplements reviewed- may have forgotten a dose he stated- pt appears to have lost weight , he had a bought of diarrhea last monthper haps r/t to all the antbx he has had for UTIs - doing better now, on a maintence dose of antbx x 1 day/ week. ON 1000MG OF VIT C MAY BE CAUSING LOWER INR ALSO, Denies any signs and symptoms of bleeding or bruising or clotting. Bleeding, bruising, clotting discussed Nutritional guidance given - avoid greens today and tomorrow Dose: INCREASE WEEKLY DOSE DUE TO TRENDING LOW INR 4.5MG TODAY THEN 3MG X 6 DAYS / 1.5MG ON SATURDAYS F/U INR: 1 WEEK- PT UNABLE TO COME WED AND WED DUE TO RAIN - HE DRIVES HIS ELECTRIC WHEEL CHAIR - OFFICE CLOSED AND WEDNESDAY PT ADVISED TO GO TO ER WITH ANY S/SX OF CLOTTING Patient verbalizes understanding of instructions given T/C TO PCP OFFICE - MSG LEFT ON NURSE TRIAGE LINE TO CONVEY MSG TO PCP. Anti-Coag Initial Assessment Social Hx Patient Tobacco Use Status: Former Tobacco user Alcohol intake frequency: does not drink Coding Level of Care Code Est Patient Level 1 Diagnoses Current use of anticoagulant therapy Z79.01 Results AMB INR Fingerstick AMB INR Fingerstick 1.4 Last Edit by Janell Suarez RN on 09/11/24 14:06 MANUAL ENTRY Assessment & Plan Assessment & Plan (1) Current use of anticoagulant therapy: Code(s): Z79.01 - roasterman (current) use of anticoagulants Category: Medical
== END 2024-09-11 14:25 | disposition home or self-care (01) ==
LOC: HO.ACS 13:15
PROVIDERS: PCP Internal Medicine; Visit Provider Internal Medicine
DX: Z79.01 Long term (current) use of anticoagulants (principal)

== ENCOUNTER → 2024-09-11 13:15 | Outpatient (BNVA) | payer MEDICARE, SELFPAY | PROVIDERS: PCP Internal Medicine; Visit Provider Internal Medicine | DX: I26.99 Other pulmonary embolism without acute cor pulmonale (principal); Z79.01 Long term (current) use of anticoagulants; Z51.81 Encounter for therapeutic drug level monitoring | CPT/HCPCS: 85610; 99211 ==

== ENCOUNTER 2024-09-25 11:33 | Outpatient (AMB) | payer MEDICARE, SELFPAY ==
--- NOTE | 2024-09-25 11:35 | MHC.OFFVIS ---
Intake Visit Reasons: 3 month follow up Intake Note: Patient is present for 3M F/U Urology Medication:OXYBUTYNIN Antibiotic Allergy:NONE Blood Thinner:WARFARIN TODAY'S PVR:0ML'S Rope Laying Machine Operator Required: No Rope Laying Machine Operator Name: [id number] Allergies No Known Allergies Allergy (Mild, Verified 09/25/24 12:11) NOT APPLICABLE Medication List - Last Reconciled 09/25/24 by RINKU Salcido acetaminophen 500 mg PO Q6H PRN ascorbic acid (vitamin C) (Vitamin C) 1,000 mg (2 x 500 mg) PO DAILY 90 days baclofen pump orally per md lazar for pump; bisacodyl (Dulcolax (bisacodyl)) 10 mg PO BEDTIME PRN calcium polycarbophil (Fiber-Lax) mg PO clonazepam mg PO diclofenac sodium 1% topical dicyclomine 10 mg PO TID PRN docusate sodium (Colace) 100 mg PO BID fosfomycin tromethamine 1 packet PO .weekly 12 weeks lanolin [id number]-a.pet-ceres (Minerin Creme topical) appl topical BID lidocaine HCl 2% mL topical TID methenamine hippurate 1 g PO DAILY 90 days naloxone 4 mg/actuation 0 sprays intranasal oxybutynin chloride ER 5 mg PO DAILY 90 days peg 3350-electrolytes 236-22.74-6.74 -5.86 gram (Golytely) 240 mL PO Q10M 1 day phenazopyridine (Pyridium) 200 mg PO TID PRN 5 days [PROBIOTIC PO] psyllium husk (aspartame) 3 gram/5.8 gram (Reguloid (aspartame)) grams PO DAILY PRN sennosides (senna) 8.6 mg PO BEDTIME PRN varicella-zoster gE vac,2 of 2 (Shingrix gE Antigen Component) IM warfarin 3 mg See Protocol PO DAILY zolpidem 5 mg PO BEDTIME PRN HPI Comments Details: Erasmo is a very pleasant 63-year-old Mohawk speaking male patient of Dr. Foley. He has a PMH of paraplegia, DVT on Coumadin, urinary tract infections, meningitis, neurogenic bladder, and renal cysts. He presents to the office today for follow-up of his neurogenic bladder, recurrent urinary tract infections and lower urinary tract symptoms. In discussion with the patient today he reports to be feeling and doing well. Of note, patient was seen approximately 3 months ago at which time he was treated for positive urine culture results that noted E coli and serratia marcescens. He reports having completed antibiotic therapy as prescribed. He reports compliance with methenamine and vitamin-C for suppression of recurrent urinary tract infections. He continues to perform CIC typically 6-8 times per day depending on p.o. intake. He currently denies any bothersome urinary issues or concerns. He denies any UTI like symptoms. Unable to obtain urine for urinalysis today however PVR 0 mL. We discussed potential causes of recurrent urinary tract infections. Recent CT results reviewed with the patient today 08/10 numerous left renal simple cyst. Left lower pole cortical thinning and scarring. Otherwise, the kidneys are normal in size, shape, and attenuation. No hydronephrosis, hydroureter, or calculi seen bilaterally. The bladder is unremarkable. Discussed potential causes of recurrent urinary tract infections. He reports at times he still is able to urinate independently without catheterization. PSAs are as follows: 07/05 0.8, 09/06 0.8 PREVIOUS OFFICE NOTE: Neurogenic bladder Clean intermittent catheterization 4-5 times per day - straight catheter no coude - will require self catheterization for the foreseeable future Does have occasional UTI Prior ultrasound with renal cysts on left kidney Procedure - 07/09 TUIP PSA 2019 0.8 Infection protection-vitamin C and methanamine. [facility] Medical History Paraplegia DVT (deep venous thrombosis) UTI (urinary tract infection) Hx of meningitis Renal cyst, acquired Neurogenic bladder Surgical History History of colonoscopy H/O abdominal surgery Social History Patient Tobacco Use Status: Former Tobacco user Review of Systems Const Reports no additional complaints Eyes Reports no additional complaints ENT Reports no additional complaints Card Reports as per HPI Resp Reports no additional complaints GI Reports no additional complaints Reports as per HPI Musc Reports as per HPI Neuro Reports as per HPI Psych Reports no additional complaints Endo Reports no additional complaints Walker/Lymph Reports as per HPI Aller/Immun Reports no additional complaints Physical Exam Const General: cooperative, healthy appearing, comfortable, no acute distress, well developed, alert and awake Orientation/consciousness: patient oriented x3 Limitations: wheelchair HEENT Head: Yes normal to inspection Eyes General: appearance normal, both eyes and all related structures Neck Neck: Yes normal visual inspection Chest Chest palpation & inspection: normal inspection of the chest Resp Effort & Inspection: normal respiratory effort Cardio Rate: regular rate GI Inspection: Yes normal to inspection General: Yes no CVA tenderness Back/Spine/Pelvis Back: no CVA tenderness Skin General skin exam: no rashes or lesions noted Neuro General: patient oriented x3 Extrem General: Yes normal to inspection Psych Appearance: grossly normal and well kempt Speech and movement: Clear speech present Attitude: cooperative Thought process: Normal thought process present Thought content: Normal thought content present Insight: Fair insight present (Psych) Judgement: Fair judgement present (Psych) Office Procedures Post Void Residual Post Residual Void Post Void Residual (PVR): 0 52670-Aqmn Void Residual by ultrasound Results Reviewed Results Reviewed: Date of Service: 07/19/24 EXAMINATION: CT ABDOMEN AND PELVIS WITH CONTRAST FINDINGS: LUNG BASES: Dependent bibasilar subsegmental atelectasis. No pleural effusion. Normal-sized heart without pericardial effusion. LIVER, GALLBLADDER, AND BILIARY TREE: The liver is normal in size, shape, and attenuation. No focal hepatic lesion or biliary ductal dilatation is present. The gallbladder is unremarkable with no evidence of radiopaque gallstones, gallbladder wall thickening, or obvious pericholecystic inflammatory changes. PANCREAS: Unremarkable. SPLEEN: Unremarkable. ADRENAL GLANDS: Unremarkable. KIDNEYS AND URETERS: Numerous left renal simple cysts, as before. Left lower pole cortical thinning/scarring, as before. Otherwise, the kidneys are normal in size, shape, and attenuation. No hydronephrosis, hydroureter, or calculi seen. No perinephric stranding. BLADDER: Unremarkable. GASTROINTESTINAL TRACT: The small and large bowel are nondilated. Moderate rectal stool burden. Normal appendix. ABDOMINAL WALL: No significant hernia is appreciated. LYMPH NODES: Normal. VASCULAR: Unremarkable. PELVIC VISCERA: Normal CT appearance of the prostate and seminal vesicles. MUSCULOSKELETAL STRUCTURES: Spinal stimulator generator pack in the right upper quadrant subcutaneous tissue with the lead entering the canal at L2-L3 and terminating at the level T11, as before. Grade 1 retrolisthesis of L5 on S1 again seen. Severe bilateral L5-S1 neural foraminal stenosis. Stable anterior wedge compression deformity of L1. Minor multilevel thoracic lumbar spondylosis and degenerative disc disease. Coccygeal skin thickening, as before. IMPRESSION: 1. No acute findings in the abdomen or pelvis to explain patient's symptoms. Normal appendix. 2. Moderate rectal stool burden. 3. Coccygeal skin thickening, as before. Assessment & Plan Assessment & Plan (1) UTI (urinary tract infection): Code(s): N39.0 - Urinary tract infection, site not specified Category: Medical (2) Prostate stricture: Code(s): N42.89 - Other specified disorders of prostate Category: Medical (3) Recurrent UTI (urinary tract infection): Code(s): N39.0 - Urinary tract infection, site not specified Category: Medical (4) Neurogenic bladder: Code(s): N31.9 - Neuromuscular dysfunction of bladder, unspecified Category: Medical Plan Unable to obtain urine for urinalysis today however PVR [address] results reviewed with the patient today; as noted above. Patient currently denies any bothersome urinary issues or concerns. Continue methenamine, vitamin-C, and oxybutynin as prescribed. Continue to CIC indefinitely 6-8 times per day. We discussed importance of hydration in relation to recurrent urinary tract infection as well as overall health and well-being. Will obtain PSA in 6 months. Follow-up in 6 months with PSA and PVR; or sooner with any issues, concerns, and or questions. Medications: Refilled oxybutynin chloride ER 5 mg PO DAILY 90 tabs 1RF 90 days N39.0 - Urinary tract infection, site not specified, R39.15 - Urgency of urination, N32.81 - Overactive bladder Discontinued fosfomycin tromethamine One dose (one packet) every 3 days Discontinued Reason: Patient Completed Course 3 grams PO Q3D 9 days 3 ea 0RF N39.0 - Urinary tract infection, site not specified Patient Instructions: The patient had an opportunity to ask questions regarding the treatment plan. All questions were answered. Physical exam, labs, and imaging were discussed and reviewed in detail. As well as risks, benefits, and discussion of treatment choices. No major barriers to understanding were identified. The patient expressed understanding and agreement with the above treatment plan. The patient was made aware they should contact our office by phone for worsening of their current condition, the appearance of new symptoms, or with any questions or concerns. Compliance is encouraged with any medications and follow up testing that is ordered. It is a privilege to be allowed the opportunity to participate in? your urological care.? Again, if you have any questions or concerns If you have any questions or concerns please do not hesitate to contact me. The office is [phone]. This note is constructed using voice recognition software. While every effort has been made to ensure accuracy water safety instructor errors may have been included. Yours sincerely, RINKU Salcido Coding Level of Care Code Est Pt Level 3 (88721) Diagnoses UTI (urinary tract infection) N39.0 Prostate stricture N42.89 Recurrent UTI (urinary tract infection) N39.0 Neurogenic bladder N31.9 CPT Codes Post Residual Void - PVR CPT Code: 33175-Vhvx Void Residual by ultrasound ([id number])
== END 2024-09-25 12:05 | disposition home or self-care (01) ==
LOC: HO.HUSH 11:34
PROVIDERS: PCP Internal Medicine; Visit Provider Nurse Practitioner Family
DX: N39.0 Urinary tract infection, site not specified (principal); N42.89 Other specified disorders of prostate; N31.9 Neuromuscular dysfunction of bladder, unspecified
CPT/HCPCS: 99213

== ENCOUNTER → 2024-09-25 11:33 | Outpatient (BNVA) | payer MEDICARE, SELFPAY | PROVIDERS: PCP Internal Medicine; Visit Provider Nurse Practitioner Family | DX: N39.0 Urinary tract infection, site not specified (principal); N42.89 Other specified disorders of prostate; N31.9 Neuromuscular dysfunction of bladder, unspecified | CPT/HCPCS: 51798; 99212 ==

== ENCOUNTER 2025-01-24 10:38 | Outpatient (AMB) | payer MEDICARE, SELFPAY ==
--- NOTE | 2025-01-24 10:44 | MHC.OFFVIS ---
Vital Signs 01/24/25 10:57 Height 5 ft 5 in BP 95/62 Blood Pressure Location Lt brachial Position Sitting Pulse 61 Intake Visit Reasons: colonoscopy screening, constipation Intake Note: Patient in office today in follow up for constipation and to discuss colonoscopy. CC: Patient c/o constipation, blood and mucous in stool, abdominal pain, and thin stools. He states that he had a stool test ordered by nurse practitioner recently but he does not know the results yet. Chief Information Security Officer Required: Yes Accompanied by: Self / Same As Patient Allergies No Known Allergies Allergy (Mild, Verified 09/25/24 12:11) NOT APPLICABLE HPI HPI colonoscopy screening, constipation: Details: Assessment & Plan (1) Colon cancer screening: Code(s): Z12.11 - Encounter for screening for malignant neoplasm of colon Plan: [place] #[id number], Stephanie He says he had a prior colonoscopy but it was years ago and it was negative. His last was in [address] Redmond and was negative except for a decubitis ulcer. HE is wheelchair bound paraplegic. He is here with a male family member. HE is on coumadin for DVT and he is seen at our coumadin clinic here. He also has an intrathecal pump. He denies any respiratory or cardiac problems. He denies any problems with anesthesia or sedation. No ID problems. There is no known FHX or crc or polyps. He has a lot of urinary problems and UTI's, he was just tx'ed with macrobid. He has an upcoming appointment with Urology to discuss this problem. (2) Current use of anticoagulant therapy: Code(s): Z79.01 - FPC (current) use of anticoagulants Medications: New bisacodyl (Dulcolax (bisacodyl)) 10 mg (2 x 5 mg) PO BEDTIME 2 days 4 tabs 0RF Z12.11 - Encounter for screening for malignant neoplasm of colon, Z79.01 - crisis manager (current) use of anticoagulants peg 3350-electrolytes 236-22.74-6.74 -5.86 gram (Golytely) until fecal effluent is clear; do not exceed a total volume of 2,000 mL 240 mL PO Q10M 1 day 4,000 mL 0RF Z12.11 - Encounter for screening for malignant COLONOSCOPY BIOPSY TODAY'S VISIT [place] #[id number], Ishaan Cox has been lost to follow-up since 04/2024 Apparently he is here because he was seen in a local ER for abdominal pain and told he had severe constipation. He says he went a whole month w/o moving his bowels and he had a lot of pain. This was last year. He is taking medication but my intestines hurt a lot. He describes the pain as spasms. He says his stools are soft, even thin, but still he has pain. He is only moving his bowels every 2 days even with the soft stool. Given his immobility in the fact he is wheelchair-bound I think he needs a motility agent so I am going to change him to senna 2 tabs at night and encouraged him to take the MiraLax only if this does not work. He can continue to take his fiber supplement. I think the cramping comes from the fact that the softer stools harder to move given his immobility. He says he never heard from our staff about colonoscopy. I question whether there was a holdup because of his anticoagulation therapy. He is on Eliquis now on asks about a Lovenox bridge but that would be for his primary care provider who is the prescriber to determine. I will send another request to our schedulers. Return office visit next available to evaluate his constipation control. [facility] Medical History (Updated 01/24/25 @ 11:52 by AMIRAH Che) UTI (urinary tract infection) Colon cancer screening Paraplegia DVT (deep venous thrombosis) Hx of meningitis Renal cyst, acquired Neurogenic bladder Surgical History History of colonoscopy H/O abdominal surgery Social History Patient Tobacco Use Status: Former Tobacco user Review of Systems Const Denies fatigue, Denies fever(s), Denies night sweats, Denies poor appetite and Denies weight loss Eyes Details: Glasses Reports requires corrective lenses ENT Reports Normal hearing present, Denies dental pain, Denies dysphagia, Denies hearing loss, Denies mouth pain, Denies odynophagia, Denies throat swelling, Denies tongue swelling and Reports other (Dentition adequate) Card Reports no additional complaints Resp Reports no additional complaints GI Details: Denies abdominal pain, Denies melena, Denies bloating, Denies hematochezia, Reports constipation, Reports GI cramping, Denies dysphagia, Denies excessive flatus, Reports early satiety, Denies heartburn, Denies diarrhea, Denies nausea, Denies odynophagia, Denies vomiting and Denies hematemesis Musc Reports abnormal gait, Reports atrophy and Reports muscle weakness Skin/Breast Denies pruritus, Denies lesions, Denies rash and Denies jaundice Neuro Reports Normal hearing present, Denies Abnormal speech present and Reports abnormal gait Endo Denies fatigue Aller/Immun Denies throat swelling and Denies tongue swelling Physical Exam Vital Signs: Last Vital Signs Pulse 61 01/24/25 10:57 BP 95/62 01/24/25 10:57 Const General: cooperative, no acute distress, well developed and well groomed Nutritional Appearance: average body habitus and well nourished Orientation/consciousness: oriented to person, oriented to place and oriented to time Limitations: language barrier and wheelchair HEENT Head: Yes normocephalic and Yes atraumatic Eyes General: appearance normal, both eyes and all related structures Pupils: Equal, round and reactive pupils present Neck Neck: Yes normal visual inspection and Yes no lymphadenopathy Thyroid: Thyroid normal Resp Effort & Inspection: normal respiratory effort and able to speak in complete sentences Auscultation: clear to auscultation bilaterally Cardio Rate: regular rate Rhythm: regular rhythm Heart sounds: Normal, physiologic split S2 sound present Peripheral pulses: radial pulses present and posterior tibial pulses present GI Inspection: No distended and No Abdominal panniculus present Palpation (GI): Soft to palpation, nontender, no guarding, not rigid and No hepatosplenomegaly present Percussion: Yes normal to percussion Auscultation: normal bowel sounds Rectal Exam - Male: Yes deferred Skin General skin exam: no rashes or lesions noted, turgor normal, skin not dry, no jaundice, No spider nevi and no striae Rashes: no rashes Nails: normal Neuro General: oriented to person, oriented to place and oriented to time Cranial nerves: Yes Equal, round and reactive pupils present and Yes Normal hearing present Speech: No Abnormal speech present Extrem General: Yes normal to inspection, No clubbing, No cyanosis and No edema Psych Appearance: grossly normal and well kempt Mental Status: mental status grossly normal Speech and movement: Normal speech and movement present Affect: normal affect Attitude: cooperative Thought process: not confabulating and Impoverished thought process present Thought content: Normal thought content present Insight: Limited insight present (Psych) Judgement: Limited judgement present (Psych) Assessment & Plan Assessment & Plan (1) Pre-op examination: Code(s): Z01.818 - Encounter for other preprocedural examination Category: Medical (2) Wheelchair dependent: Code(s): Z99.3 - Dependence on wheelchair Category: Medical (3) Paraplegia: Code(s): G82.20 - Paraplegia, unspecified Category: Medical (4) Current use of anticoagulant therapy: Code(s): Z79.01 - FPC (current) use of anticoagulants Category: Medical (5) Chronic idiopathic constipation: Code(s): K59.04 - Chronic idiopathic constipation Category: Medical Plan [place] #[id number], Ishaan Patient has been lost to follow-up since 04/2024 Apparently he is here because he was seen in a local ER for abdominal pain and told he had severe constipation. He says he went a whole month w/o moving his bowels and he had a lot of pain. This was last year. He is taking medication but my intestines hurt a lot. He describes the pain as spasms. He says his stools are soft, even thin, but still he has pain. He is only moving his bowels every 2 days even with the soft stool. Given his immobility in the fact he is wheelchair-bound I think he needs a motility agent so I am going to change him to senna 2 tabs at night and encouraged him to take the MiraLax only if this does not work. He can continue to take his fiber supplement. I think the cramping comes from the fact that the softer stools harder to move given his immobility. He says he never heard from our staff about colonoscopy. I question whether there was a holdup because of his anticoagulation therapy. He is on Eliquis now on asks about a Lovenox bridge but that would be for his primary care provider who is the prescriber to determine. I will send another request to our schedulers. Return office visit next available to evaluate his constipation control. Medications: New dicyclomine 20 mg PO QID PRN 120 tabs 6RF abdominal pain 30 days R10.9 - Unspecified abdominal pain Changed From sennosides (senna) 8.6 mg PO BEDTIME PRN 30 tabs 0RF constipation K59.04 - Chronic idiopathic constipation To sennosides (senna) 17.2 mg (2 x 8.6 mg) PO BEDTIME 60 tabs 6RF constipation K59.04 - Chronic idiopathic constipation Discontinued dicyclomine Discontinued Reason: Doctor's Order 10 mg PO TID PRN 20 caps 0RF abdominal pain docusate sodium (Colace) Discontinued Reason: Doctor's Order 100 mg PO BID 30 caps 0RF Patient Instructions: Charles Moscoso,Erasmo [place] medicamento: sen. Dahlen 2 comprimidos antes de acostarse. [place]len Miralax solo si las pastillas no le hacen efecto. Le receto un medicamento llamado diciclomina. Puede tomarlo para el dolor y los calambres. Dahlen 1 comprimido hasta 4 veces al d?a, seg?n sea necesario. Coding Level of Care Code Est Pt Level 4 (52127) Diagnoses Pre-op examination Z01.818 Wheelchair dependent Z99.3 Paraplegia G82.20 Current use of anticoagulant therapy Z79.01 Chronic idiopathic constipation K59.04 Time Spent (min) 38
[2025-01-24 10:57] VITALS: BP 95/62; PULSE 61
--- OUTSIDE RECORDS SUMMARY | 2025-01-24 12:13 | XMS_ITS | Data Portability ---
Author Organization [employer] Address [address] [place] [address] Care Team Providers Care Can Filling Room Sweeper Name Role Phone HIM YOEL OTHER Assessment Encounter Date Assessment Date Assessment LastModified by Organization Details LastModified Time 07/03/2024 07/03/2024 As noted, we were called to see this patient regarding concerns of penile pain. Evaluation in the field was performed by my religious healer colleague, as noted above, I provided real-time direction and supervision for this visit. The evaluation revealed same. Impression: Complex 63yo/m with hx of paraplegia and neurogenic bladder who self catheterizes who called for evaluation for continued penile pain. Patient is 63 and interviewed with diplomatic interpreter, and medic in home reports patient was seen on 06/26 and 06/29. Seen in ED on 06/26 and started on levaquin for concern for UTI. On 06/29 sought care for continued symptoms and started on fosfomycin. Medic able to clarify with patient, he follows with a Urologist for these symptoms, has had same symptoms in past that resolved with a medication . Has Urology appointment scheduled in the next several days. He reports after contacting Urologist he is having continued symptoms. He reports symptoms are penile pain. Has pain throughout the urethra . Has symptoms when voiding and not voiding, seem to be present all the time. Also on pyridium at this time. However no associated abdominal pain, fevers/chills, chest pain, dyspnea. For medic in home he states taking PO normally, no systemic symptoms of illness. Has urethra pain as he describes it, but no testicular pain or redness or swelling, no inability to void. No penile lesions or discharge, no redness/swellin g/warmth of the penis. For medic his exam is benign. He denies other ROS. Plan: Discussed at length, patient is being treated by his Urologist for these symptoms and is on fosfomycin after initially being treated with levaquin. I am uncertain if this represents true treatment failure given his persistent symptoms and am reluctant to start a new antibiotic regimen for him. There are no signs of swelling, redness, warmth, lesions or other abnormality. I have a lower clinical suspicion at this time for phimosis/paraph imosis, testicular torsion, fornier's gangrene, acute intra-abdominal catastrophe. He remains able to self cath, able to take PO. His main complaint is his persistent discomfort. I believe it's reasonable to send a urine culture today to aid in his outpatient care with his urology appointment upcoming and for patient to continue on antibiotics as prescribed, take pyridium and anti-inflammato teto, and continue to observe his symptoms at home. Instructed to reach out immediately with any acute worsening or change in symptoms which he understands. Primary care, consider Urology f/u Disposition: We discussed the diagnostic uncertainty of home visits and the risk associated with this. In this case, the patient and I felt this to be an acceptable and reasonable amount of risk given the benefit of avoiding an ED visit. We discussed the need to seek care urgently/emerge ntly in the setting of any new or worsening serious symptoms, particularly worsening or change in symptoms. [email or web address] Not available 07/03/2024 18:36:24 Plan of Treatment Reminders Order Date Submit Date Provider Last Modified By Organization Details Last Modified Time Details Appointments None recorde d. Lab culture , urine 024 07/03/20 24 CECIL [facility] (Centralized Electronic Ordering - All Locations), Patient Can Go To The Location Of Their Choice, [address] 10:06:52 Referral None recorde d. Procedures None recorde d. Surgeries None recorde d. Imaging None recorde d. Medication Orders None recorde d. Patient TargetsNo targets recorded. Patient InstructionsNo instructions recorded. Reason for Referral None Reported. Results Created Date Observation Date Name Description Value Unit Range Abnormal Flag Note LastModifiedBy Organization Detail LastModifiedTime 07/03/20 24 07/06/2024 URINE CULTU RE,CO MPREH ENSIV E urine culture,comp rehensive Final report Not Available [facility] ([facility]) [address], [place], [address], 07/06/2024 12:06:12 07/03/20 24 07/06/2024 URINE CULTU RE,CO MPREH ENSIV E result 1 COMMEN T No growt h in 36 - 48 hours . Not Available [facility] ([facility]) [address], [place], [address], 07/06/2024 12:06:12 Result Notes None recorded. Medical Equipment None Reported. Medications Name Sig Start Date Stop Date Status Note LastModified by Organization Details LastModified Time cefuroxime axetil 250 mg tablet TAKE 1 TABLET BY MOUTH TWICE DAILY FOR 10 DAYS active Not Available Not Available No t Available Vitamin C 500 mg tablet TAKE 2 TABLETS BY MOUTH DAILY active Not Available Not Available No t Available cefpodoxime 100 mg tablet active Not Available Not Availabl e Not Available phenazopyridin e 200 mg tablet active Not Available Not Available Not Available clonazepam 1 mg tablet TAKE 1/2 TABLET BY MOUTH EVERY DAY AND TAKE 1 TABLET BY MOUTH AT BEDTIME NEEDED FOR ANXIETY active Not Available Not Available No t Available ciprofloxacin 250 mg tablet TAKE 1 TABLET BY MOUTH TWICE DAILY FOR 5 DAYS active Not Available Not Available No t Available sulfamethoxazo le 800 mg-trimethopri m 160 mg tablet TAKE 1 TABLET BY MOUTH TWICE DAILY FOR 10 DAYS active Not Available Not Available No t Available warfarin 3 mg tablet TAKE 1/2 TABLET TO 1 & 1/2 TABLETS EVERY DAY DIRECTED BY [facility]ADIN CLINIC active Not Available Not Available No t Available oxycodone-acet aminophen 5 mg-325 mg tablet TAKE 1 TABLET BY MOUTH EVERY DAY NEEDED FOR SEVERE PAIN active Not Available Not Available No t Available methenamine hippurate 1 gram tablet TAKE 1 TABLET BY MOUTH EVERY DAY active Not Available Not Available No t Available phenazopyridin e 100 mg tablet TAKE 1 TABLET BY MOUTH THREE TIMES DAILY IN THE MORNING, AT NOON, AND AT BEDTIME NEEDED para espasmos de la vejina active Not Available Not Available No t Available cefuroxime axetil 500 mg tablet TAKE ONE TABLET BY MOUTH 2 TIMES A DAY FOR 7 DAYS FIRST DOSE TAKEN ON 11/14/2023 active Not Available Not Available No t Available levofloxacin 500 mg tablet TAKE 1 TABLET BY MOUTH DAILY FOR 7 DAYS active Not Available Not Available No t Available nitrofurantoin monohydrate/ma crocrystals 100 mg capsule TOME ISACC C PSULA DOS VECES AL D A CON ALIMENTO active Not Available Not Available No t Available lidocaine 2 % mucosal jelly in applicator INSERT IN URETHRA EVERY 6 TO 8 HOURS DIRECTED NEEDED FOR MILD PAIN active Not Available Not Available No t Available Artificial Tears ([id number] ll-glycerin) 1 %-0.2 %-0.2 % eye drops INSTILL 1 DROP INTO THE AFFECTED EYE(S) FOUR TIMES DAILY active Not Available Not Available No t Available Vitals Date Recorded Heart rate Body weight Oxygen saturation Oxygen saturation in Arterial blood by Pulse oximetry Body temperature Respiratory rate Systolic blood pressure Diastolic blood pressure Provider Name and Address Organization Details Last Updated DateTime 4 76 /min 37827.9 6 g 95 % 95 % 97.6 [degF] 18 /min 76 mm[Hg] 48 mm[Hg] Not Available [employer] 4 16:34:42 Date Recorded Body temperature Respiratory rate Heart rate Oxygen saturation Oxygen saturation in Arterial blood by Pulse oximetry Systolic blood pressure Diastolic blood pressure Provider Name and Address Organization Details Last Updated DateTime 4 98.9 [degF] 18 /min 70 /min 97 % 97 % 148 mm[Hg] 84 mm[Hg] Not Available [employer] 4 19:32:45 Date Recorded Heart rate Body temperature Oxygen saturation Oxygen saturation in Arterial blood by Pulse oximetry Respiratory rate Systolic blood pressure Diastolic blood pressure Provider Name and Address Organization Details Last Updated DateTime 4 70 /min 97.5 [degF] 96 % 96 % 16 /min 119 mm[Hg] 72 mm[Hg] Not Available [employer] - [employer] 4 18:17:22 Social History None recorded. Functional Status None recorded. Mental Status None recorded. Family History Nothing Reported. Medical History No medical history recorded. Past Encounters Encounter ID Performer Location Encounter Start Date Encounter Closed Date Diagnosis/Indication Diagnosis SNOMED-CT Code Diagnosis ICD10 Code Diagnosis Note [id number] YAMINI LEMUS MD [facility] [address] [place] [address] 12/17/2023 16:34:41 12/17/2023 19:30:05 Low blood pressure 17829199 I95.9 Evaluation in the field was performed by my religious healer colleague, as noted above, I provided real-time direction and supervisio n for this visit. The evaluation revealed 63 yo male who straight cath himself with complains of abdominal pain. Pt reports that he was seen in the ED on 12/14 and 12/15 with similar complains. Was given oral antibiotic and most likely pyridium since pt reports that his urine turned red. for pain. Continues to have severe abdominal pain, currently 8-9/ 10. Unable toUpon arrival he was found to be hypotensiv e . BP was checked 3 times by the religious healer and the highest value of BP 76/48. Pt afebrile but with diffuse abdominal pain, guarding.G vasu hypotensio n, severe abdominal pain and the fact that pt lives by himself, he is a high risk of developing sepsis. Impression :Hypotensi on/ abdominal pain/ possible UTI Plan:Pt to be transporte d to [facility]. Expect called. Primary care, consider__ _ Dispositio n: [facility] [place] [id number] Jovan Hawk MD [facility] [address] [place] [phone] 01/07/2024 19:32:43 01/08/2024 00:36:17 Chronic abdominal pain 269782386 R10.9 This 63-year-ol d male has had intermitte nt abdominal pain for over three weeks. He was recently evaluated in the ER with a negative workup. He continues to have pain not responding to Tylenol. I ordered Toradol 15 mg IM and suggested he alternate ibuprofen and Tylenol. He will follow-up with his PCP. The patient agreed with this plan. [id number] Mathew Nguyen MD [facility] [address] [place] [phone] 07/03/2024 18:17:19 07/03/2024 20:33:59 Pain in penis 054520279 N48.89 Health Concerns Section Related Observation LastModified by Organization Detai ls LastModified Time None Recorded Concern Status LastModified by Organization Details LastModified Time None Recorded Advance Directives Directive None Recorded Payers Encounter Date Sequence Insurance Name Policy Number Policy Joseph Covered Member ID Joseph Member ID Guarantor Name 12/17/2023 1 [facility] - DOS ON OR AFTER 2023 - DUAL ELIGIBLE - SKILLED NURSING OPTIONS AND ONE CARE (MEDICARE REPLACEMENT/ADV ANTAGE - HMO) Erasmo Charles [id number] Erasmo Charles 01/07/2024 1 [facility] - DOS ON OR AFTER 2023 - DUAL ELIGIBLE - SKILLED NURSING OPTIONS AND ONE CARE (MEDICARE REPLACEMENT/ADV ANTAGE - HMO) Erasmo Charles [id number] Erasmo Charles 07/03/2024 1 [facility] - DOS ON OR AFTER 2023 - DUAL ELIGIBLE - SKILLED NURSING OPTIONS AND ONE CARE (MEDICARE REPLACEMENT/ADV ANTAGE - HMO) Erasmo Charles [id number] Erasmo Charles Notes Date Note Type Note Provider Name and Address Organization Details Recorded Time 12/17/2023 text/html [facility] Nurse Triage Notes (Freddy Trejo): Reason For Request: Pt reporting 7 out of 8 centralized abdominal pain 11/14/23 mbr went to ED for similar pain (not as strong pain as being reported today)>was given antibiotic which did not help as much. 12/14/23 mbr presented to [facility] for similar pain and received antibiotic shot and was sent home with a medication that was 3x a day for pain and made him urinate redish color. 12/15/23 mbr worsened and went to ED> Chief Complaints: Pain Allergies: No Known Comments: Full Stack Java Developer verified the member's name//address and phone number. Education provided on the response time and the member was advised to monitor reported s/s and seek emergency treatment if needed. Member is reporting 7/8 - 10 generalized abdominal pain - Has been seen in the ER on 11/14, 12/14 and 12/15 - Reports taking an unknown antibiotic? - Denies N/V and fever - Member is requesting a wellness check .................. .................. .................. .................. .................. .................. .................. ............... Reservation Manager Note From Daniel Herrera: Pt co lower clenching tingling abdominal pain , painful upon palpation, denies urinary pain fever sob confusion cp. baseline vitals assessed. Very hypotensive. Abdomen had pain upon palpitation. Pt wincing in pain. [facility] contacted and advised ER. Pt agreed. 911 called pt transported to [facility]. .................. .................. .................. .................. .................. .................. .................. ............... Disposition: Fulfilled YAMINI LEMSU MD [address] [place] [address],[address], [place], [phone], [facility] 12/17/2023 18:30:41 01/07/2024 text/html HPI: HX: Paraplegia following meningitis. Recurrent UTI with urinary retention. Anticoag on coumadin. Seen at [facility] 01/06/24 with negative work up for pain in lower abdomen. Patient reorts nausea and pain worse after eating currently 02/24. No vomiting and BM today. Team appt scheduled for Wednesday. .................. .................. .................. .................. .................. .................. .................. ............... [facility] Nurse Triage Notes (Freddy Trejo): Comments: Reviewed HPI Jovan Hawk MD [address], [place], [address], [facility] 01/07/2024 19:38:39 07/03/2024 text/html HPI: MS called and member not on the line, she states member was in ER, he is home and can't sleep and has pain and wants someone to come see him. Full Stack Java Developer obtained historic interpreter ID# [id number]. Erasmo states he went to ER because he has not eaten in last couple days, he is paraplegic, and he had spasms, they gave him medication that did not help. He states he was told that he had an UTI/ infection, he does self-catheterizati on and says the medication does not help. He states he was discharged last Wed or with the medication, he states his urine does not look right, like jordin. He states he would like someone to come see him and he can provide a urine sample. .................. .................. .................. .................. .................. .................. .................. ............... [facility] Nurse Triage Notes (Sofiya Mcmillan): Chief Complaints: UTI/Pyelonephritis , Pain Comments: [facility] RN did not require any additional information to process this visit. .................. .................. .................. .................. .................. .................. .................. ............... Reservation Manager Note From Manish Thomas: Pt reports one week of suprapubic and ? u rethral? pain. Pt is a paraplegic and straight caths at baseline. Pt went to the ED on 06/26 and was prescribed levaquin which he feels was not helping. Pt contacted his urology office last week and they d/c the levaquin and rx fosfomycin and pyridium which he is still taking. Pt denies any flank pain, hematuria, f/n/v/d. Pt is awaiting f/u appt from urology. Pt is alert, NAD. VSS. Afebrile. Lungs CTA. Suprapubic tenderness. No CVA tenderness. No LE edema. UC sent to [facility]. Pt instructed to stay well hydrated, continue fosfomycin as prescribed and to f/u with urology tomorrow morning for an in person eval. Red flags reviewed. [facility] Lab Orders: culture, urine: Performed .................. .................. .................. .................. .................. .................. .................. ............... Disposition: Fulfilled Mathew Nguyen MD [address] [facility],[address], [place], [phone], RITESH REAGAN 07/03/2024 18:45:33
== END 2025-01-24 12:04 | disposition home or self-care (01) ==
LOC: HO.HGI 10:39
PROVIDERS: PCP Internal Medicine; Visit Provider Nurse Practitioner
DX: K59.04 Chronic idiopathic constipation (principal); Z79.01 Long term (current) use of anticoagulants; G82.20 Paraplegia, unspecified; Z99.3 Dependence on wheelchair
CPT/HCPCS: 99214

== ENCOUNTER → 2025-01-24 10:38 | Outpatient (BNVA) | payer MEDICARE, SELFPAY | PROVIDERS: PCP Internal Medicine; Visit Provider Nurse Practitioner | DX: Z01.818 Encounter for other preprocedural examination (principal); K59.04 Chronic idiopathic constipation; G82.20 Paraplegia, unspecified; Z99.3 Dependence on wheelchair; Z79.01 Long term (current) use of anticoagulants | CPT/HCPCS: 99212 ==

== ENCOUNTER 2025-02-09 16:13 | Outpatient (REF) | payer OTHER, SELFPAY ==
--- OUTSIDE RECORDS SUMMARY | 2025-02-09 16:19 | XMS_ITS | Encounter Summary ---
Author Organization [employer] Address 75 [facility] 7t [place] [address] Care Team Providers Care Account Engineer Name Role Phone Kaylah Foley MD Primary Care Provider + Reason for Visit * Reason Onset Date Comments Medication Question 07/05/2024 Encounter Details Date Type Department Care Team ([facility] st Contact Info) Description 07/05/2024 Telephone [facility] MED[facility]INE [address] [place], [place] [phone] Kaylah Foley MD [address] [place], [place] [phone] Medication Question Social History Tobacco Use Types [...] Info) Description 04/03/2025 2:30 PM EDT Telemedicine [facility] [address] [place] [address] Kaylah Foley MD [address] [place] [address] documented as of this encounter Visit Diagnoses Not on filedocumented in this encounter Additional Health Concerns Assessment Noted Time PHQ-9 Depression Total Score: 3 10/07/20 23 9:51 AM EST documented as of this encounter Care Teams Account Engineer Relationship Specialty Start Date End Date Kaylah Foley MD [address] [place] [address] PCP - General Family Medicine 06/02/17 documented as of this encounter
--- OUTSIDE RECORDS SUMMARY | 2025-02-09 16:19 | XMS_ITS | Encounter Summary ---
Author Organization [employer] Address 75 [facility] 7t [place] [address] Care Team Providers Care Dye Stand Loader Name Role Phone Kaylah Foley MD Primary Care Provider + Reason for Visit * Reason Comments Med Refill Encounter Details Date Type Department Care Team ([facility] st Contact Info) Description 02/08/2025 Refill [facility] MED[facility] [address] [place], [place] [phone] Kaylah Foley MD [address] [place], [place] [phone] Mixed anxiety and depressive disorder Social History Tobacco Use Types Packs/Day Years [...] encounter Miscellaneous Notes * Telephone Encounter - Nata Oviedo RN - 02/08/2025 11:26 AM EDT [facility] reviewed, 28 day supply last picked up 01/11/25, rx due today and pended documented in this encounter Plan of Treatment Upcoming Encounters Date Type Department Care Team (Late st Contact Info) Description 04/03/2025 2:30 PM EDT Telemedicine [facility] MEDICINE [address] [place] [address] Kaylah Foley MD [address] [place] [address] documented as of this encounter Visit Diagnoses Diagnosis Mixed anxiety and depressive disorder Dysthymic disorder documented in this encounter Additional Health Concerns Assessment Noted Time PHQ-9 Depression Total Score: 3 10/07/20 23 9:51 AM EST documented as of this encounter Care Teams Dye Stand Loader Relationship Specialty Start Date End Date Kaylah Foley MD [address] [place] [phone] PCP - General Family Medicine 06/02/17 documented as of this encounter
--- OUTSIDE RECORDS SUMMARY | 2025-02-09 16:19 | XMS_ITS | Encounter Summary ---
Author Organization [employer] Address 75 [facility] 7t [place] [address] Care Team Providers Care Brazer Controlled Atmospheric Furnace Name Role Phone Kaylah Foley MD Primary Care Provider + Reason for Visit * Reason Comments Med Refill Encounter Details Date Type Department Care Team ([facility] st Contact Info) Description 05/16/2024 Refill [facility] MEDICINE [address] [place], [place] [phone] Erum Scott MD [address] [place], [place] [phone] Flaccid paraplegia (CMS/HCC) Social History Tobacco Use [...] Info) Description 04/03/2025 2:30 PM EDT Telemedicine [facility] MEDICINE [address] [place] [address] Kaylah Foley MD [address] [place] [address] documented as of this encounter Visit Diagnoses Diagnosis Flaccid paraplegia (CMS/HCC) Paraplegia documented in this encounter Additional Health Concerns Assessment Noted Time PHQ-9 Depression Total Score: 3 10/07/20 23 9:51 AM EST documented as of this encounter Care Teams Brazer Controlled Atmospheric Furnace Relationship Specialty Start Date End Date Kaylah Foley MD [address] [place] [address] PCP - General Family Medicine 06/02/17 documented as of this encounter
--- OUTSIDE RECORDS SUMMARY | 2025-02-09 16:19 | XMS_ITS | Encounter Summary ---
Author Organization [employer] Address 75 [facility] 7t [place] [address] Care Team Providers Care Special Machine Operator Name Role Phone Kaylah Foley MD Primary Care Provider + Reason for Visit * Reason Comments uti symptoms Encounter Details Date Type Department Care Team ([facility] st Contact Info) Description 02/09/2025 9:00 AM EDT Office Visit [facility] [address] [place], [place] [phone] Manish Argueta MD [address] [place], [place] [phone] Dysuria (Primary Dx); UTI symptoms Social History Tobacco Use Types Packs/Day Years [...] AM EDT documented as of this encounter Last Filed Vital Signs Vital Sign Reading Time Taken Comments Blood Pressure 88/53 02/09/2025 8:55 AM EDT Pulse 75 02/09/2025 8:55 AM EDT Temperature 36.6 ??C (97.9 ??F) 02/09/2025 8:55 AM ED T Respiratory Rate 17 02/09/2025 8:55 AM EDT Oxygen Saturation 97% 02/09/2025 8:55 AM EDT Inhaled Oxygen Concentration - - Weight 61.2 kg (135 lb) 02/09/2025 8:55 AM EDT Height - - Body Mass Index 22.47 10/24/2024 8:52 AM EST documented in this encounter Progress Notes * Manish Argueta MD - 02/09/2025 9:00 AM EDT Subjective Patient ID: Erasmo Moscoso is a 64 y.o. male. Arcgis Developer: Max. TRISTAN Zimmerman has a history of recurrent UTIs, and 5 days ago he had onset of urine odor. Self catheterizes 5-6x/day to urinate. Denies fever, chills, n/v, abdominal or flank pain. Lives alone. Not employed. Former smoker. 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 Respiratory: Negative for shortness of breath. Cardiovascular: Negative for chest pain. Gastrointestinal: Negative for abdominal pain, nausea and vomiting. Genitourinary: Positive for dysuria. Negative for flank pain. Skin: Negative for rash. Neurological: Negative for headaches. Objective Physical Exam Constitutional: Appearance: Normal appearance. Comments: Seated in electric wheelchair. HENT: Right Ear: Tympanic membrane, ear canal and external ear normal. Left Ear: Tympanic membrane, ear canal and external ear normal. Nose: Nose normal. Mouth/Throat: Mouth: Mucous membranes are moist. Pharynx: Oropharynx is clear. Eyes: Conjunctiva/sclera: Conjunctivae normal. Pupils: Pupils are equal, round, and reactive to light. Cardiovascular: Rate and Rhythm: Normal rate and regular rhythm. Heart sounds: No murmur heard. Pulmonary: Effort: Pulmonary effort is normal. Breath sounds: Normal breath sounds. Abdominal: Tenderness: There is no right CVA tenderness or left CVA tenderness. Musculoskeletal: General: Normal range of motion. Cervical back: No tenderness. Skin: Findings: No rash. Neurological: Mental Status: He is alert. Gait: Gait is intact. Psychiatric: Mood and Affect: Mood normal. Behavior: Behavior normal. Drugs good I do not Procedures Assessment/Plan Diagnoses and all orders for this visit: Dysuria Urine C&S pending. Prescribed Macrobid. Return to clinic if not improving. UTI symptoms - POCT urinalysis dipstick manually resulted Other orders - nitrofurantoin, macrocrystal-monohydrate, (Macrobid) 100 MG capsule; Take 1 capsule (100 mg) by mouth 2 times daily for 5 days. documented in this encounter Plan of Treatment Upcoming Encounters Date Type Department Care Team (Late st Contact Info) Description 04/03/2025 2:30 PM EDT Telemedicine [facility] MEDICINE [address] [place], [place] [phone] Kaylah Foley MD [address] [place], [place] [phone] Scheduled Orders Name Type Priority Associated Diagnoses Orde r Schedule Culture, Urine, Routine Microbiology Routine Dysuria Ordered: 02/09/2025 documented as of this encounter Procedures Procedure Name Priority Date/Time Associated Diagnosis Comments POCT URINALYSIS DIPSTICK Routine 02/09/2025 9:09 AM EDT UTI symptoms documented in this encounter Results * (ABNORMAL) POCT urinalysis dipstick manually resulted (02/09/2025 9:09 AM EDT) Color, UA Yellow Clarity, UA Clear Glucose, UA Negative Bilirubin, UA Negative Ketones, UA Negative Spec Grav, UA 1.015 Blood, UA Negative Negative, None Detected pH, UA 6.0 Protein, UA Negative Urobilinogen, UA 0.2 Leukocytes, UA Few 15(A) Negative, Rare, Trace Comment:Small Nitrite, UA Positive(A) Negative, None Detected Urine 02/09/2025 9:09 AM EDT Manish Argueta MD POINT OF CARE TEST ENTER/EDIT OR DERABLES Final Result documented in this encounter Visit Diagnoses Diagnosis Dysuria- Primary UTI symptoms documented in this encounter Additional Health Concerns Assessment Noted Time PHQ-9 Depression Total Score: 3 10/07/20 23 9:51 AM EST documented as of this encounter Care Teams Special Machine Operator Relationship Specialty Start Date End Date Kaylah Foley MD [address] [place], [place] [phone] PCP - General Family Medicine 06/02/17 documented as of this encounter
--- OUTSIDE RECORDS SUMMARY | 2025-02-09 16:19 | XMS_ITS | Encounter Summary ---
Author Organization [employer] Address 75 [facility] 7t [place] [address] Care Team Providers Care Stem Setter Name Role Phone Kaylah Foley MD Primary Care Provider + Reason for Visit * Reason Onset Date Comments Med Refill 02/09/2025 Encounter Details Date Type Department Care Team ([facility] st Contact Info) Description 02/09/2025 Telephone [facility] [address] [place], [place] [phone] Kaylah Foley MD [address] [place] [address] Med Refill Social History Tobacco Use Types [...] encounter Miscellaneous Notes * Telephone Encounter - Marian Dai LPN - 02/09/2025 10:43 AM EDT Agriculture Sales Account Manager ck [id number] documented in this encounter Plan of Treatment Upcoming Encounters Date Type Department Care Team (Late st Contact Info) Description 04/03/2025 2:30 PM EDT Telemedicine [facility] MEDICINE [address] [place] [phone] Kaylah Foley MD [address] [place] [phone] documented as of this encounter Visit Diagnoses Not on filedocumented in this encounter Additional Health Concerns Assessment Noted Time PHQ-9 Depression Total Score: 3 10/07/20 23 9:51 AM EST documented as of this encounter Care Teams Stem Setter Relationship Specialty Start Date End Date Kaylah Foley MD [address] [place] [address] PCP - General Family Medicine 06/02/17 documented as of this encounter
--- OUTSIDE RECORDS SUMMARY | 2025-02-09 16:19 | XMS_ITS | Encounter Summary ---
Author Organization [employer] Address 75 [facility] 7t [place] [address] Care Team Providers Care Commercial Artist Lettering Name Role Phone Kaylah Foley MD Primary Care Provider + Encounter Details Date Type Department Care Team (Late st Contact Info) Description 08/18/2024 Orders Only [facility] MEDICINE [address] [place], [place] [phone] Kaylah Foley MD [address] [place], [place] [phone] Mixed anxiety and depressive disorder (Primary Dx) [...] Info) Description 04/03/2025 2:30 PM EDT Telemedicine [facility] [address] [place] [phone] Kaylah Foley MD [address] [place] [address] documented as of this encounter Visit Diagnoses Diagnosis Mixed anxiety and depressive disorder- Primary Dysthymic disorder documented in this encounter Additional Health Concerns Assessment Noted Time PHQ-9 Depression Total Score: 3 10/07/20 23 9:51 AM EST documented as of this encounter Care Teams Commercial Artist Lettering Relationship Specialty Start Date End Date Kaylah Foley MD [address] [place] [phone] PCP - General Family Medicine 06/02/17 documented as of this encounter
--- OUTSIDE RECORDS SUMMARY | 2025-02-09 16:19 | XMS_ITS | Encounter Summary ---
Author Organization [employer] Address 75 [facility] 7t [place] [address] Care Team Providers Care Assistant Teacher Name Role Phone Kaylah Foley MD Primary Care Provider + Reason for Visit * Reason Onset Date Comments Med Refill 03/12/2023 Encounter Details Date Type Department Care Team ([facility] st Contact Info) Description 03/12/2023 Telephone [facility] MEDICINE [address] [place], [place] [phone] Kaylah Foley MD [address] [place], [place] [phone] Med Refill Social History Tobacco Use Types [...] (Percocet) 5-325 MG tablet Please sent to [facility] - [place], [place] - [address] [place] [address] documented in this encounter Plan of Treatment Upcoming Encounters Date Type Department Care Team (Late st Contact Info) Description 04/03/2025 2:30 PM EDT Telemedicine [facility] MEDICINE [address] [place] [address] Kaylah Foley MD [address] [place] [address] documented as of this encounter Visit Diagnoses Not on filedocumented in this encounter Care Teams Assistant Teacher Relationship Specialty Start Date End Date Kaylah Foley MD [address] [place] [address] PCP - General Family Medicine 06/02/17 documented as of this encounter
--- OUTSIDE RECORDS SUMMARY | 2025-02-09 16:20 | XMS_ITS | Encounter Summary ---
Author Organization [employer] Address 75 [facility] 7t [place] [address] Care Team Providers Care Surface Grinding Machine Hand Name Role Phone Kaylah Foley MD Primary Care Provider + Reason for Visit * Reason Comments Med Refill Encounter Details Date Type Department Care Team ([facility] st Contact Info) Description 09/28/2023 Refill [facility] MED[facility]INE [address] [place], [place] [phone] Kaylah Foley MD [address] [place], [place] [phone] Flaccid paraplegia (CMS/HCC) Social History Tobacco Use [...] Info) Description 04/03/2025 2:30 PM EDT Telemedicine [facility] MEDICINE [address] [place] [phone] Kaylah Foley MD [address] [place] [address] documented as of this encounter Visit Diagnoses Diagnosis Flaccid paraplegia (CMS/HCC) Paraplegia documented in this encounter Additional Health Concerns Assessment Noted Time PHQ-9 Depression Total Score: 1 08/19/20 23 9:39 AM EDT documented as of this encounter Care Teams Surface Grinding Machine Hand Relationship Specialty Start Date End Date Kaylah Foley MD [address] [place] [phone] PCP - General Family Medicine 06/02/17 documented as of this encounter
--- OUTSIDE RECORDS SUMMARY | 2025-02-09 16:20 | XMS_ITS | Encounter Summary ---
Author Organization [employer] [facility] Address 75 [facility] 7t [place] [address] Care Team Providers Care Quality Assurance Qa Lab Technician Name Role Phone Kaylah Foley MD Primary Care Provider + Reason for Visit * Reason Comments Med Refill Encounter Details Date Type Department Care Team (Late st Contact Info) Description 02/04/2023 Refill [facility] [address] [place] [address] Kaylah Foley MD [address] [place] [address] Anxiety Social History Tobacco Use Types Packs/Day [...] Info) Description 04/03/2025 2:30 PM EDT Telemedicine [facility] MEDICINE [address] [place] [address] Kaylah Foley MD [address] [place] [address] documented as of this encounter Visit Diagnoses Diagnosis Anxiety Anxiety state, unspecified documented in this encounter Care Teams Quality Assurance Qa Lab Technician Relationship Specialty Start Date End Date Kaylah Foley MD [address] [place] [address] PCP - General Family Medicine 06/02/17 documented as of this encounter
--- OUTSIDE RECORDS SUMMARY | 2025-02-09 16:20 | XMS_ITS | Encounter Summary ---
Author Organization [employer] Address 75 [facility] 7t [place] [address] Care Team Providers Care Clinical Rehabilitation Specialist Name Role Phone Kaylah Foley MD Primary Care Provider + Encounter Details Date Type Department Care Team (Late st Contact Info) Description 09/13/2023 Abstract [facility] MEDICINE [address] [place], [place] [phone] Brenda Thompson Social History Tobacco Use Types [...] t he electric, gas, oil or water [employer] threatened to shut off services in your [...] Info) Description 04/03/2025 2:30 PM EDT Telemedicine [facility] MEDICINE [address] [place] [address] Kaylah Foley MD [address] [place] [address] documented as of this encounter Visit Diagnoses Not on filedocumented in this encounter Additional Health Concerns Assessment Noted Time PHQ-9 Depression Total Score: 1 08/19/20 23 9:39 AM EDT documented as of this encounter Care Teams Clinical Rehabilitation Specialist Relationship Specialty Start Date End Date Kaylah Foley MD [address] [place] [address] PCP - General Family Medicine 06/02/17 documented as of this encounter
--- OUTSIDE RECORDS SUMMARY | 2025-02-09 16:20 | XMS_ITS | Data Portability ---
Author Organization [employer] Address [address] [place] [address] Care Team Providers Care Manager Games Name Role Phone HIM YOEL OTHER Assessment Encounter Date Assessment Date Assessment LastModified by Organization Details LastModified Time 07/03/2024 07/03/2024 As noted, we were called to see this patient regarding concerns of penile pain. Evaluation in the field was performed by my marketing developer colleague, as noted above, I provided real-time direction and supervision for this visit. The evaluation revealed same. Impression: Complex 63yo/m with hx of paraplegia and neurogenic bladder who self catheterizes who called for evaluation for continued penile pain. Patient is 63 and interviewed with per diem interpreter, and medic in home reports patient [...] symptoms, particularly worsening or change in symptoms. [email or web address] Not available 07/03/2024 18:36:24 Plan of Treatment Reminders Order Date Submit Date Provider Last Modified By Organization Details Last Modified Time Details Appointments None recorde d. Lab culture , urine 024 07/03/20 24 CECIL [facility] (Centralized Electronic Ordering - All Locations), Patient Can Go To The Location Of Their Choice, [address] 10:06:52 Referral None recorde d. Procedures None [...] culture,comp rehensive Final report Not Available [facility] ([facility]) [address], [place], [address], 07/06/2024 12:06:12 07/03/20 24 07/06/2024 URINE CULTU RE,CO MPREH ENSIV E result 1 COMMEN T No growt h in 36 - 48 hours . Not Available [facility] ([facility]) [address] [facility], [place], [address], 07/06/2024 12:06:12 Result Notes None recorded. Medical [...] Not Available No t Available Artificial Tears (jx325-tihjxos ll-glycerin) 1 %-0.2 %-0.2 % eye drops [...] Details Last Updated DateTime 4 76 /min 82898.9 6 g 95 % 95 % 97.6 [degF] 18 /min 76 mm[Hg] 48 mm[Hg] Not Available [facility] - production 4 16:34:42 Date Recorded Body temperature Respiratory rate Heart rate Oxygen saturation Oxygen saturation in Arterial blood by Pulse oximetry Systolic blood pressure Diastolic blood pressure Provider Name and Address Organization Details Last Updated DateTime 4 98.9 [degF] 18 /min 70 /min 97 % 97 % 148 mm[Hg] 84 mm[Hg] Not Available [facility] - production 4 19:32:45 Date Recorded Heart rate Body temperature Oxygen saturation Oxygen saturation in Arterial blood by Pulse oximetry Respiratory rate Systolic blood pressure Diastolic blood pressure Provider Name and Address Organization Details Last Updated DateTime 4 70 /min 97.5 [degF] 96 % 96 % 16 /min 119 mm[Hg] 72 mm[Hg] Not Available [facility] - production 4 18:17:22 Social History None recorded. Functional Status None recorded. Mental Status None recorded. Family History Nothing Reported. Medical History No medical history recorded. Past Encounters Encounter ID Performer Location Encounter Start Date Encounter Closed Date Diagnosis/Indication Diagnosis SNOMED-CT Code Diagnosis ICD10 Code Diagnosis Note [id number] YAMINI LEMUS MD [facility] - [facility] [address] [place] [address] 12/17/2023 16:34:41 12/17/2023 19:30:05 Low blood pressure 16780922 I95.9 Evaluation in the field was performed by my marketing developer colleague, as noted above, I provided real-time [...] BP was checked 3 times by the marketing developer and the highest value of BP 76/48. Pt afebrile but with diffuse abdominal pain, guarding.G vasu hypotensio n, severe abdominal pain and the fact that pt lives by himself, he is a high risk of developing sepsis. Impression :Hypotensi on/ abdominal pain/ possible UTI Plan:Pt to be transporte d to [facility]. Expect called. Primary care, consider__ _ Dispositio n: [facility] ED [id number] Jovan Hakw MD Main - [facility] [address] [place] [phone] 01/07/2024 19:32:43 01/08/2024 00:36:17 Chronic abdominal pain 853618346 R10.9 This 63-year-ol d male has had intermitte nt abdominal pain for over three weeks. He was recently evaluated in the ER with a negative workup. He continues to have pain not responding to Tylenol. I ordered Toradol 15 mg IM and suggested he alternate ibuprofen and Tylenol. He will follow-up with his PCP. The patient agreed with this plan. [id number] Mathew Nguyen MD Main - [facility] [address] [place] [phone] 07/03/2024 18:17:19 07/03/2024 20:33:59 Pain in penis [id number] N48.89 Health Concerns Section Related Observation LastModified by Organization Detai ls LastModified Time None Recorded Concern Status LastModified by Organization Details LastModified Time None Recorded Advance Directives Directive None Recorded Payers Encounter Date Sequence Insurance Name Policy Number Policy Joseph Covered Member ID Joseph Member ID Guarantor Name 12/17/2023 1 [facility] - DOS ON OR AFTER 2023 - DUAL ELIGIBLE - [employer] OPT[employer] AND ONE CARE (MEDICARE REPLACEMENT/ADV ANTAGE - HMO) Erasmo Charles [id number] Erasmo Charles 01/07/2024 1 [facility] - DOS ON OR AFTER 2023 - DUAL ELIGIBLE - [employer] OPT[employer] AND ONE CARE (MEDICARE REPLACEMENT/ADV ANTAGE - HMO) Erasmo Charles [id number] Erasmo Charles 07/03/2024 1 [facility] - DOS ON OR AFTER 2023 - DUAL ELIGIBLE - [employer] OPTIONS AND ONE CARE (MEDICARE REPLACEMENT/ADV ANTAGE - HMO) Erasmo Charles [id number] Erasmo Charles Notes Date Note Type Note Provider Name and Address Organization Details Recorded Time 12/17/2023 text/html [facility] Nurse Triage Notes (Freddy Trejo): Reason For Request: Pt reporting 7 out of 8 centralized abdominal pain 11/14/23 mbr went to ED for similar pain (not as strong pain as being reported today)>was given antibiotic which did not help as much. 12/14/23 mbr presented to [facility] for similar pain and received antibiotic shot and was sent home with a medication that was 3x a day for pain and made him urinate redish color. 12/15/23 mbr worsened and went to ED> Chief Complaints: Pain Allergies: No Known Comments: [employer] verified the member's name//address and phone number. [...] .................. .................. .................. .................. .................. .................. ............... Rubber Goods Tester Note From Daniel Herrera: Pt co lower clenching tingling abdominal pain , painful upon palpation, denies urinary pain fever sob confusion cp. baseline vitals assessed. Very hypotensive. Abdomen had pain upon palpitation. Pt wincing in pain. [facility] contacted and advised ER. Pt agreed. 911 called pt transported to [facility]. .................. .................. .................. .................. .................. .................. .................. ............... Disposition: Fulfilled YAMINI LEMUS MD [address] [place] [address],[address], [place], [phone], [employer] 12/17/2023 18:30:41 01/07/2024 text/html HPI: HX: Paraplegia following meningitis. Recurrent UTI with urinary retention. Anticoag on coumadin. Seen at [facility] ED 01/06/24 with negative work up for pain in lower abdomen. Patient reorts nausea and pain worse after eating currently 02/24. No vomiting and BM today. Team appt scheduled for Wednesday. .................. .................. .................. .................. .................. .................. .................. ............... [facility] Nurse Triage Notes (Freddy Trejo): Comments: Reviewed HPI Jovan Hawk MD [address], [place], [address], [employer] 01/07/2024 19:38:39 07/03/2024 text/html HPI: MS called and member not on the line, she states member was in ER, he is home and can't sleep and has pain and wants someone to come see him. [employer] obtained translator interpreter ID# [id number]. Erasmo states he went to ER because [...] .................. .................. .................. .................. .................. .................. ............... Rubber Goods Tester Note From Manish Thomas: Pt reports one [...] an in person eval. Red flags reviewed. [facility] Lab Orders: culture, urine: Performed .................. .................. .................. .................. .................. .................. .................. ............... Disposition: Fulfilled Mathew Nguyen MD [address] [facility],[address], [place], [address], RITESH REAGAN 07/03/2024 18:45:33
--- OUTSIDE RECORDS SUMMARY | 2025-02-09 16:20 | XMS_ITS | Encounter Summary ---
Author Organization [employer] Address [address] [facility] 7t [place] [address] Care Team Providers Care Carton Filling Machine Operator Name Role Phone Kaylah Foley MD Primary Care Provider + Reason for Visit * Reason Onset Date Comments Med Refill 09/27/2023 F/U on Percocet usage 09/27/2023 Encounter Details Date Type Department Care Team ([facility] st Contact Info) Description 09/27/2023 Refill [facility] [address] [place], [place] [phone] Kaylah Foley MD [address] [place], [place] [phone] Flaccid paraplegia (CMS/HCC) Social History Tobacco Use [...] request for Percocet refill today. TC via P/I#[id number], pt reports he's has about 27-28 pills [...] 04/03/2025 2:30 PM EDT Telemedicine [facility] [address] [place] [phone] Kaylah Foley MD [address] [place] [address] documented as of this encounter Visit Diagnoses Diagnosis Flaccid paraplegia (CMS/HCC) Paraplegia documented in this encounter Additional Health Concerns Assessment Noted Time PHQ-9 Depression Total Score: 1 08/19/20 23 9:39 AM EDT documented as of this encounter Care Teams Carton Filling Machine Operator Relationship Specialty Start Date End Date Kaylah Foley MD [address] [place] [phone] PCP - General Family Medicine 06/02/17 documented as of this encounter
--- OUTSIDE RECORDS SUMMARY | 2025-02-09 16:20 | XMS_ITS | Encounter Summary ---
Author Organization [employer] Address [address] [facility] 7t [place] [address] Care Team Providers Care Licensed Clinical Social Worker Name Role Phone Kaylah Foley MD Primary Care Provider + Reason for Visit * Reason Comments Med Refill Encounter Details Date Type Department Care Team ([facility] st Contact Info) Description 09/29/2023 Refill [facility] [address] [place], [place] [phone] Kaylah Foley MD [address] [place], [place] [phone] Flaccid paraplegia (CMS/HCC) Social History Tobacco Use [...] PM EDT Telemedicine [facility] [address] [place] [phone] Kaylah Foley MD [address] [place] [address] documented as of this encounter Visit Diagnoses Diagnosis Flaccid paraplegia (CMS/HCC) Paraplegia documented in this encounter Additional Health Concerns Assessment Noted Time PHQ-9 Depression Total Score: 1 08/19/20 23 9:39 AM EDT documented as of this encounter Care Teams Licensed Clinical Social Worker Relationship Specialty Start Date End Date Kaylah Foley MD [address] [place] [phone] PCP - General Family Medicine 06/02/17 documented as of this encounter
--- OUTSIDE RECORDS SUMMARY | 2025-02-09 16:20 | XMS_ITS | Clinical Summary ---
Author Organization [employer] Address [address] [facility] 7t [place] [address] Care Team Providers Care Hairspring Fabrication Supervisor Name Role Phone Kaylah Foley MD Primary [...] SUPPRESSION FOR 12 WEEKS 07/06/20 24 Active Lactobacillus- Inulin (CULTURELLE DIGESTIVE DAILY PO) Take by mouth. Activ e apixaban (Eliquis) 2.5 MG tablet Take 1 tablet (2.5 mg) by mouth 2 times daily. 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 10 capsule 02/10/20 25 025 Active clonazePAM (KlonoPIN) 0.5 MG tabletIndicati ons:Mixed anxiety and depressive disorder Take 1 tablet (0.5 mg) by mouth if needed in the morning and at bedtime for anxiety. 56 tablet 01/11/20 25 025 Discontinued Active Problems Problem Noted Date Diagnosed Date [...] threw them in the green disposal bin, Frida Hedis Registered Nurse Rn, [facility] witnessed the procedure. No need for addtl [...] abd, doing well, followed by pain clinic rat exterminator prescription opiate use 08/19/2023 Assessment & [...] pain and will FU next month for DRAWING IN MACHINE TENDER nurse. If not needed will continue oxycontin [...] cont slow taper and will FU with DRAWING IN MACHINE TENDER nurse We have done [employer] education re [...] Clonazepam 0.5 mg BID PRN anxiety + Biankaien QHS Discussed the importance of taking medications as prescribed and reaching out if he noticed persistently increased anxiety symptoms. Patient has crisis number and is able to reach out for safety. 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 Due to wheelchair bound condition, he cont be at risk of DVT. Will consult with hematology to see if there is an alternative, newer anticoagulant that has not yet been approved for half-way DVT prophylaxis Vitamin D deficiency 04/04/2018 Visual [...] Encounters Date Type Department Care Team Description 02/09/2025 9:00 AM EDT Office Visit [facility] [address] [facility] [place] [address] Manish Argueta MD Dysuria (Primary Dx); UTI symptoms 02/09/2025 Telephone [facility] [address] [place] [address] Kaylah Foley MD Med Refill 02/08/2025 Refill [facility] [address] [place] [address] Kaylah Foley MD Mixed anxiety and depressive disorder 01/29/2025 Telephone [facility] [address] [place] [address] Kaylah Foley MD Call Back Request 01/29/2025 Telephone [facility] [address] [place] [address] aKylah Foley MD Durable Medical Equipment (L&C Form: Incontinence Supplies) 01/25/2025 Telephone [facility] [address] [place] [phone] Kaylah Foley MD Appointment Request 01/10/2025 Refill [facility] [address] [place] [address] Kaylah Foley MD Mixed anxiety and depressive disorder 01/10/2025 Refill [facility] [address] [place] [address] Kaylah Foley MD 01/02/2025 Telephone [facility] [address] [place] [phone] Kaylah Foley MD Katie recall 12/13/2024 Refill [facility] [address] [place] [address] Kaylah Foley MD Mixed anxiety and depressive disorder 12/11/2024 Refill [facility] [address] [place] [address] Kaylah Foley MD 12/01/2024 11:45 AM EST Telemedicine [facility] [address] [place], [place] [phone] Kaylah Foley MD Mixed anxiety and depressive disorder (Primary Dx) 12/01/2024 Travel 11/30/2024 Telephone [facility] [address] [place] [phone] Kaylah Foley MD Chart prep 11/17/2024 Refill [facility] [address] [place] [address] Erum Scott MD Mixed anxiety and depressive disorder from Last 3 Months Immunizations Name Administration [...] (135 lb) 02/09/2025 8:55 AM EDT Height 165.1 cm (5' 5 ) 10/24/2024 8:52 AM EST Body Mass Index 22.47 10/24/2024 8:52 AM EST Plan of Treatment Upcoming Encounters Date Type Department Care Team (Late st Contact Info) Description 04/03/2025 2:30 PM EDT Telemedicine [facility] [address] [place] [address] Kaylah Foley MD [address] [place] [address] Health Maintenance Due Date Last Done Comments CT Colonography 1958 Colonoscopy 1958 Colorectal Cancer Screening 1958 FIT DNA/Cologuard 1958 FIT 1958 FOBT 1958 Sigmoidoscopy 1958 Alcohol/Substance Use Screening 1970 Depression Screening 10/24/2025 10/24/2024, 10/07/20 SDOH Screening 10/24/2025 10/24/2024 Tobacco Screening 02/09/2026 02/09/2025 Lipid Panel 10/07/2028 10/07/2023, 05/18, 11/14/2020, Additional [...] Routine 02/09/2025 9:09 AM EDT UTI symptoms HEPATITIS PANEL, GENERAL Routine 10/07/2023 10:48 AM EST Encounter for preventive health examination Presence of intrathecal baclofen pump LIPID PANEL WITH REFLEX TO DIRECT LDL Routine 10/07/2023 10:48 AM EST Encounter for preventive health examination from Last 3 Months or Most Recently Relevant to Health Maintenance Results * (ABNORMAL) POCT urinalysis dipstick manually [...] CARE TEST ENTER/EDIT OR DERABLES Final Result * (ABNORMAL) Lipid Panel with Reflex to Direct LDL (10/07/2023 10:48 AM EST) Triglycerides 75 <150 mg/dL [facility] Comment:Desirable Triglyceri de: less than 150 mg/dLBorderline High Triglyceride 150-199 mg/dLHigh Triglyceride: 200-499 mg/dLVery High Triglyceride: greater than or equal to 5OO mg/dL Cholesterol 166 <200 mg/dL [facility] Comment:Desirable Cholestero l: less than 200 mg/dLBorderline High Cholesterol: 200-239 mg/dLHigh Cholesterol: greater than 239 mg/dL LDL Cholesterol Calculated 112(H) <100 mg/dL [facility] Comment:Desirable LDL: less than 100 mg/dLNear Optimal/Above Optimal LDL: 110- 129 mg/dLBorderline High LDL: 130-159 mg/dLHigh LDL: 160-189 mg/dLVery High LDL: greater than or equal to 190 mg/dL HDL Cholesterol 39(L) >40 mg/dL [facility] Comment:Desirable HDL: great er than 40 mg/dL Note: This HDL assay may give artificially low results in patients with liver disease. Blood 10/07/2023 10:4 8 AM EST 10/07/2023 11:22 AM EST Kaylah Foley MD LAB BLOOD ORDERABLES Fin al Result Performing Organization Address [facility] Co de Phone Number [facility] [address] [place] [phone] * Hepatitis Panel, General (10/07/2023 10:48 AM EST) Hepatitis A IgM Nonreactive Nonreactive [facility] Comment:IgM antibodies to REED V not detected; does not exclude earlyacute or recovered HAV infection. ~Hepatitis B Surface Antibody REACTIVE Nonreactive [facility] Comment:REACTIVE: > 11.99 mI U/mL Hepatitis B Core Antibody Reactive Nonreactive [facility] Comment:Presumptive evidence of anti-HBc. Hepatitis C Antibody Nonreactive Nonreactive [facility] Comment:Antibodies to HCV no t detected; does not exclude early acuteHCV infection. Hepatitis B Surface Ag Negative Negative [facility] Blood 10/07/2023 10:4 8 AM EST 10/07/2023 11:22 AM EST Kaylah Foley MD LAB BLOOD ORDERABLES Fin al Result Performing Organization Address [facility] Co de Phone Number [facility] [address] [place] [phone] from Last 3 Months or Most Recently Relevant to Health Maintenance Insurance [facility] [employer] (HMO D-SNP) Care Teams Hairspring Fabrication Supervisor Relationship Specialty Start Date End Date Kaylah Foley MD [address] [place] [phone] PCP - General Family Medicine 06/02/17
--- OUTSIDE RECORDS SUMMARY | 2025-02-09 16:20 | XMS_ITS | Encounter Summary ---
Author Organization [employer] Address [address] [facility] 7t [place] [address] Care Team Providers Care On Site Coordinator Name Role Phone Kaylah Foley MD Primary Care Provider + Reason for Visit * Reason Comments Med Refill Encounter Details Date Type Department Care Team ([facility] Contact Info) Description 05/08/2024 Refill [facility] [address] [place], [place] [phone] Kaylah Foley MD [address] [place], [place] [phone] Anxiety Social History Tobacco Use Types Packs/Day [...] Info) Description 04/03/2025 2:30 PM EDT Telemedicine [facility] [address] [place] [phone] Kaylah Foley MD [address] [place] [address] documented as of this encounter Visit Diagnoses Diagnosis Anxiety Anxiety state, unspecified documented in this encounter Additional Health Concerns Assessment Noted Time PHQ-9 Depression Total Score: 3 10/07/20 23 9:51 AM EST documented as of this encounter Care Teams On Site Coordinator Relationship Specialty Start Date End Date Kaylah Foley MD [address] [place] [address] PCP - General Family Medicine 06/02/17 documented as of this encounter
--- OUTSIDE RECORDS SUMMARY | 2025-02-09 16:20 | XMS_ITS | Encounter Summary ---
Author Organization [facility] Address [address] [facility] 7t [place] [address] Care Team Providers Care Branch Operations Coordinator Name Role Phone Kaylah Foley MD Primary Care Provider + Reason for Visit * Reason Comments Med Refill Encounter Details Date Type Department Care Team (Late st Contact Info) Description 10/09/2022 Refill [facility] [address] [place], [place] [phone] Palma Palacio MD [address] [place], [place] [phone] Other specified anxiety disorders Social History Tobacco [...] Info) Description 04/03/2025 2:30 PM EDT Telemedicine [facility] [address] [place], [place] [phone] Kaylah Foley MD [address] [place], [place] [phone] documented as of this encounter Visit Diagnoses Diagnosis Other specified anxiety disorders documented in this encounter Care Teams Branch Operations Coordinator Relationship Specialty Start Date End Date Kaylah Foley MD [address] [place] [phone] PCP - General Family Medicine 06/02/17 documented as of this encounter
--- OUTSIDE RECORDS SUMMARY | 2025-02-09 16:20 | XMS_ITS | Encounter Summary ---
Author Organization [employer] Address [address] [facility] 7t [place] [address] Care Team Providers Care Professional Engineer Name Role Phone Kaylah Foley MD Primary Care Provider + Reason for Visit * Reason Comments Med Refill Encounter Details Date Type Department Care Team ([facility] st Contact Info) Description 12/02/2023 Refill [facility] [address] [place], [place] [phone] Kaylah Foley MD [address] [place], [place] [phone] Anxiety Social History Tobacco Use Types Packs/Day [...] Info) Description 04/03/2025 2:30 PM EDT Telemedicine [facility] [address] [place] [address] Kaylah Foley MD [address] [place] [address] documented as of this encounter Visit Diagnoses Diagnosis Anxiety Anxiety state, unspecified documented in this encounter Additional Health Concerns Assessment Noted Time PHQ-9 Depression Total Score: 3 10/07/20 23 9:51 AM EST documented as of this encounter Care Teams Professional Engineer Relationship Specialty Start Date End Date Kaylah Foley MD [address] [place] [phone] PCP - General Family Medicine 06/02/17 documented as of this encounter
== END 2025-02-09 16:14 | disposition home or self-care (01) ==
LOC: HO.HHCLNP 16:13
PROVIDERS: Visit Provider Emergency Medicine
DX: R30.0 Dysuria (principal)
CPT/HCPCS: 87086; 87088; 87186

== ENCOUNTER 2025-02-21 10:07 | Outpatient (AMB) | payer MEDICARE, SELFPAY ==
[2025-02-21 10:12] VITALS: BP 90/47; PULSE 66; O2SAT 96; BMI 22.6
--- NOTE | 2025-02-21 10:12 | A.OFFVIS_ITS ---
Vital Signs 02/21/25 10:12 Height 5 ft 5 in Weight 136 lb BMI 22.6 BP 90/47 L Blood Pressure Location Lt brachial Position Sitting Pulse 66 Pulse Source Pulse Oximeter Pulse Oximetry (%) 96 Oxygen Delivery Method Room Air Intake Visit Reasons: [facility] follow up Intake Note: Pt presents to the office today for a [facility] follow up. Allergies No Known Allergies Allergy (Mild, Verified 02/21/25 10:12) NOT APPLICABLE HPI HPI [facility] follow up: Details: Assessment & Plan (1) Pre-op examination: Code(s): Z01.818 - Encounter for other preprocedural examination Category: Medical (2) Wheelchair dependent: Code(s): Z99.3 - Dependence on wheelchair Category: Medical (3) Paraplegia: Code(s): G82.20 - Paraplegia, unspecified Category: Medical (4) Current use of anticoagulant therapy: Code(s): Z79.01 - detention (current) use of anticoagulants Category: Medical (5) Chronic idiopathic constipation: Code(s): K59.04 - Chronic idiopathic constipation Category: Medical Plan [employer] #[id number], [place] Patient has been lost to follow-up since 04/2024 Apparently he is here because he was seen in a local ER for abdominal pain and told he had severe constipation. He says he went a whole month w/o moving his bowels and he had a lot of pain. This was last year. He is taking medication but my intestines hurt a lot. He describes the pain as spasms. He says his stools are soft, even thin, but still he has pain. He is only moving his bowels every 2 days even with the soft stool. Given his immobility in the fact he is wheelchair-bound I think he needs a motility agent so I am going to change him to senna 2 tabs at night and encouraged him to take the MiraLax only if this does not work. He can continue to take his fiber supplement. I think the cramping comes from the fact that the softer stools harder to move given his immobility. He says he never heard from our staff about colonoscopy. I question whether there was a holdup because of his anticoagulation therapy. He is on Eliquis now on asks about a Lovenox bridge but that would be for his primary care provider who is the prescriber to determine. I will send another request to our schedulers. Return office visit next available to evaluate his constipation control. Medications: New dicyclomine 20 mg PO QID PRN 120 tabs 6RF abdominal pain 30 days R10.9 - Unspecified abdominal pain Changed From sennosides (senna) 8.6 mg PO BEDTIME PRN 30 tabs 0RF constipation K59.04 - Chronic idiopathic constipation To sennosides (senna) 17.2 mg (2 x 8.6 mg) PO BEDTIME 60 tabs 6RF constipation K59.04 - Chronic idiopathic constipation Discontinued dicyclomine Discontinued Reason: Doctor's Order 10 mg PO TID PRN 20 caps 0RF abdominal pain docusate sodium (Colace) Discontinued Reason: Doctor's Order 100 mg PO BID 30 caps 0RF COLONOSCOPY 02/28/2025 BIOPSY TODAY'S VISIT [place] # Edouard Grant He is using the bentyl prn, which is okay. However, he is NOT taking senna on a regular basis and c/o it does not give me the sensation to go. I again educate him that as a spinal cord injury patient he does not get the normal signals to stimulate the bowels, so we need to try to do this chemically. With this in mind, I ask him to take 2 senna EVERY NIGHT, to try to simulate a normal motility. He is using tap water enemas and suppositories to stimulate this, which is ok but he still has to struggle and it hurts him to push. This was a very long appointment because it took quite a bit of Education to convince the patient about the plan of action, and he had many many questions about the colonoscopy procedure and the prep. We had gone over a 4 but given the fact that he has a low Education level and low literacy I think it is very important to reinforce this teaching again verbally. I did give him printed literature in Nauruan and he says he does read at least at a rudimentary level but is not high school graduate. He was advised that he needs to hold his Eliquis 3 days prior to the procedure. ROV after02/28 colonoscopy [facility] Medical History (Updated 02/21/25 @ 10:24 by AMIRAH Che) Pre-op examination UTI (urinary tract infection) Colon cancer screening Paraplegia DVT (deep venous thrombosis) Hx of meningitis Renal cyst, acquired Neurogenic bladder Surgical History History of colonoscopy H/O abdominal surgery Social History Patient Tobacco Use Status: Former Tobacco user Review of Systems Const Denies fatigue, Denies fever(s), Denies night sweats, Denies poor appetite, Reports weakness and Denies weight loss ENT Reports Normal hearing present, Denies dysphagia, Denies odynophagia, Denies throat swelling and Denies tongue swelling Card Reports no additional complaints Resp Reports no additional complaints GI Details: Denies abdominal pain, Denies melena, Denies bloating, Denies hematochezia, Reports constipation, Denies GI cramping, Denies dysphagia, Denies excessive flatus, Denies early satiety, Denies heartburn, Denies diarrhea, Denies nausea, Denies odynophagia, Denies vomiting and Denies hematemesis Skin/Breast Denies pruritus, Denies lesions, Denies rash and Denies jaundice Neuro Reports Normal hearing present, Denies Abnormal speech present, Reports lack of coordination, Reports paresthesias and Reports weakness Endo Denies fatigue Aller/Immun Denies throat swelling and Denies tongue swelling Physical Exam Vital Signs: Last Vital Signs Pulse 66 02/21/25 10:12 BP 90/47 L 02/21/25 10:12 Pulse Ox 96 02/21/25 10:12 Oxygen Delivery Method Room Air 02/21/25 10:12 BMI result Body Mass Index 22.6 Const General: cooperative, no acute distress, well developed and well groomed Nutritional Appearance: average body habitus and well nourished Orientation/consciousness: oriented to person, oriented to place and oriented to time Limitations: language barrier, wheelchair and other limitations (Low literacy) HEENT Head: Yes normocephalic and Yes atraumatic Eyes General: appearance normal, both eyes and all related structures Pupils: Equal, round and reactive pupils present Neck Neck: Yes normal visual inspection and Yes no lymphadenopathy Thyroid: Thyroid normal Resp Effort & Inspection: normal respiratory effort and able to speak in complete sentences Auscultation: clear to auscultation bilaterally Cardio Rate: regular rate Rhythm: regular rhythm Heart sounds: Normal, physiologic split S2 sound present Peripheral pulses: radial pulses present and posterior tibial pulses present GI Inspection: No distended and No Abdominal panniculus present Palpation (GI): Soft to palpation, nontender, no guarding, not rigid and No hepatosplenomegaly present Percussion: Yes normal to percussion Auscultation: normal bowel sounds Rectal Exam - Male: Yes deferred Skin General skin exam: no rashes or lesions noted, turgor normal, skin not dry, no jaundice, No spider nevi and no striae Rashes: no rashes Nails: normal Neuro General: oriented to person, oriented to place and oriented to time Cranial nerves: Yes Equal, round and reactive pupils present and Yes Normal hearing present Speech: No Abnormal speech present Extrem General: Yes normal to inspection, No clubbing, No cyanosis and No edema Psych Appearance: grossly normal and well kempt Mental Status: mental status grossly normal Speech and movement: Normal speech and movement present Affect: normal affect Attitude: cooperative Thought process: Normal thought process present and not confabulating Thought content: Normal thought content present Insight: Limited insight present (Psych) Judgement: Limited judgement present (Psych) Assessment & Plan Assessment & Plan (1) Chronic idiopathic constipation: Code(s): K59.04 - Chronic idiopathic constipation Category: Medical (2) Abdominal cramping: Code(s): R10.9 - Unspecified abdominal pain Category: Medical (3) Wheelchair dependent: Code(s): Z99.3 - Dependence on wheelchair Category: Medical Plan [place] # Edouard Grant He is using the bentyl prn, which is okay. However, he is NOT taking senna on a regular basis and c/o it does not give me the sensation to go. I again educate him that as a spinal cord injury patient he does not get the normal signals to stimulate the bowels, so we need to try to do this chemically. With this in mind, I ask him to take 2 senna EVERY NIGHT, to try to simulate a normal motility. He is using tap water enemas and suppositories to stimulate this, which is ok but he still has to struggle and it hurts him to push. This was a very long appointment because it took quite a bit of Education to convince the patient about the plan of action, and he had many many questions about the colonoscopy procedure and the prep. We had gone over a 4 but given the fact that he has a low Education level and low literacy I think it is very important to reinforce this teaching again verbally. I did give him printed literature in [place] and he says he does read at least at a rudimentary level but is not high school graduate. He was advised that he needs to hold his Eliquis 3 days prior to the procedure. ROV after02/28 colonoscopy Medications: Refilled peg 3350-electrolytes 236-22.74-6.74 -5.86 gram (Golytely) until fecal effluent is clear; do not exceed a total volume of 2,000 mL 240 mL PO Q10M 4,000 mL 0RF 1 day Z12.11 - Encounter for screening for malignant neoplasm of colon Coding Level of Care Code Est Pt Level 4 (66733) Diagnoses Chronic idiopathic constipation K59.04 Abdominal cramping R10.9 Wheelchair dependent Z99.3 Time Spent (min) 39
--- OUTSIDE RECORDS SUMMARY | 2025-02-21 11:20 | XMS_ITS | Encounter Summary ---
Author Organization [employer] Address [address] [facility] [address]t [place] [address] Care Team Providers Care Patient Services Specialist Name Role Phone Kaylah Foley MD Primary Care Provider + Encounter Details Date Type Department Care Team (Late st Contact Info) Description 09/13/2023 Abstract [facility] [address] [place], [place] [phone] Brenda Thompson Social History Tobacco Use Types [...] t he electric, gas, oil or water [employer] threatened to shut off services in your [...] Info) Description 04/03/2025 2:30 PM EDT Telemedicine [facility] [address] [place] [address] Kaylah Foley MD [address] [place] [address] documented as of this encounter Visit Diagnoses Not on filedocumented in this encounter Additional Health Concerns Assessment Noted Time PHQ-9 Depression Total Score: 1 08/19/20 23 9:39 AM EDT documented as of this encounter Care Teams Patient Services Specialist Relationship Specialty Start Date End Date Kaylah Foley MD [address] [place] [id number] PCP - General Family Medicine 06/02/17 documented as of this encounter
--- OUTSIDE RECORDS SUMMARY | 2025-02-21 11:20 | XMS_ITS | Encounter Summary ---
Author Organization [employer] Address [address] [facility] [address]t [place] [address] Care Team Providers Care Physician Name Role Phone Kaylah Foley MD Primary Care Provider + Reason for Visit * Reason Onset Date Comments Med Refill 09/27/2023 F/U on Percocet usage 09/27/2023 Encounter Details Date Type Department Care Team (Late st Contact Info) Description 09/27/2023 Refill [facility] [address] [place], [place] [phone] Kaylah Foley MD [address] [place], [place] [phone] Flaccid paraplegia (CMS/HCC) Social History Tobacco Use [...] request for Percocet refill today. TC via P/I#[id number], pt reports he's has about 27-28 pills [...] 04/03/2025 2:30 PM EDT Telemedicine [facility] [address] [place] [phone] Kaylah Foley MD [address] [place] [address] documented as of this encounter Visit Diagnoses Diagnosis Flaccid paraplegia (CMS/HCC) Paraplegia documented in this encounter Additional Health Concerns Assessment Noted Time PHQ-9 Depression Total Score: 1 08/19/20 23 9:39 AM EDT documented as of this encounter Care Teams Physician Relationship Specialty Start Date End Date Kaylah Foley MD [address] [place] [phone] PCP - General Family Medicine 06/02/17 documented as of this encounter
--- OUTSIDE RECORDS SUMMARY | 2025-02-21 11:20 | XMS_ITS | Encounter Summary ---
Author Organization [employer] Address [address] [facility] 7t [place] [address] Care Team Providers Care Medical Records Coordinator Name Role Phone Kaylah Foley MD Primary Care Provider + Reason for Visit * Reason Comments Med Refill Encounter Details Date Type Department Care Team (Late st Contact Info) Description 10/09/[address] [facility] [address] [place], [place] [phone] Palma Palacio MD [address] [place], [place] [phone] Other specified anxiety disorders Social History Tobacco [...] Description 04/03/2025 2:[address] [facility] [address] [place], [place] [phone] Kaylah Foley MD [address] [place], [place] [phone] documented as of this encounter Visit Diagnoses Diagnosis Other specified anxiety disorders documented in this encounter Care Teams Medical Records Coordinator Relationship Specialty Start Date End Date Kaylah Foley MD [address] [place] [phone] PCP - General Family Medicine 06/02/17 documented as of this encounter
--- OUTSIDE RECORDS SUMMARY | 2025-02-21 11:20 | XMS_ITS | Encounter Summary ---
Author Organization [employer] Address [address] [facility] 7t [place] [address] Care Team Providers Care Supervisor [employer] Name Role Phone Kaylah Foley MD Primary Care Provider + Reason for Visit * Reason Comments Med Refill Encounter Details Date Type Department Care Team ([facility] st Contact Info) Description 12/02/2023 Refill [facility] [address] [place], [place] [phone] Kaylah Foley MD [address] [place], [place] [phone] Anxiety Social History Tobacco Use Types Packs/Day [...] [facility] [address] [place] [address] Kaylah Foley MD [address] [place] [address] documented as of this encounter Visit Diagnoses Diagnosis Anxiety Anxiety state, unspecified documented in this encounter Additional Health Concerns Assessment Noted Time PHQ-9 Depression Total Score: 3 10/07/20 23 9:51 AM EST documented as of this encounter Care Teams Supervisor [employer] Relationship Specialty Start Date End Date Kaylah Foley MD [address] [place] [phone] PCP - General Family Medicine 06/02/17 documented as of this encounter
--- OUTSIDE RECORDS SUMMARY | 2025-02-21 11:20 | XMS_ITS | Encounter Summary ---
Author Organization [employer] Address [address] [facility] [address] [place] [address] Care Team Providers Care Cotton Ball Machine Tender Name Role Phone Kaylah Foley MD Primary Care Provider + Reason for Visit * Reason Comments Med Refill Encounter Details Date Type Department Care Team ([facility] st Contact Info) Description 05/16/2024 Refill [facility] [address] [place], [place] [phone] Erum Scott MD [address] [place], [place] [phone] Flaccid paraplegia (CMS/HCC) Social History Tobacco Use [...] 2:30 PM EDT Telemedicine [facility] [address] [place] [address] Kaylah Foley MD [address] [place] [address] documented as of this encounter Visit Diagnoses Diagnosis Flaccid paraplegia (CMS/HCC) Paraplegia documented in this encounter Additional Health Concerns Assessment Noted Time PHQ-9 Depression Total Score: 3 10/07/20 23 9:51 AM EST documented as of this encounter Care Teams Cotton Ball Machine Tender Relationship Specialty Start Date End Date Kaylah Foley MD [address] [place] [address] PCP - General Family Medicine 06/02/17 documented as of this encounter
--- OUTSIDE RECORDS SUMMARY | 2025-02-21 11:20 | XMS_ITS | Encounter Summary ---
Author Organization [employer] Address [address] [facility] 7t [place] [address] Care Team Providers Care Client Director Name Role Phone Kaylah Foley MD Primary Care Provider + Encounter Details Date Type Department Care Team ([facility] st Contact Info) Description 08/18/2024 Orders Only [facility] [address] [place], [place] [phone] Kaylah Foley MD [address] [place], [place] [phone] Mixed anxiety and depressive disorder (Primary Dx) [...] Info) Description 04/03/2025 2:30 PM EDT Telemedicine [facility] [address] [place] [address] Kaylah Foley MD [address] [place] [address] documented as of this encounter Visit Diagnoses Diagnosis Mixed anxiety and depressive disorder- Primary Dysthymic disorder documented in this encounter Additional Health Concerns Assessment Noted Time PHQ-9 Depression Total Score: 3 10/07/20 23 9:51 AM EST documented as of this encounter Care Teams Client Director Relationship Specialty Start Date End Date Kaylah Foley MD [address] [place] [phone] PCP - General Family Medicine 06/02/17 documented as of this encounter
--- OUTSIDE RECORDS SUMMARY | 2025-02-21 11:20 | XMS_ITS | Encounter Summary ---
Author Organization [employer] Address [address] [facility] [address]t [place] [address] Care Team Providers Care Project Designer Name Role Phone Kaylah Foley MD Primary Care Provider + Reason for Visit * Reason Comments Med Refill Encounter Details Date Type Department Care Team ([facility] st Contact Info) Description 09/28/2023 Refill [facility] [address] [place], [place] [phone] Kaylah Foley MD [address] [place], [place] [phone] Flaccid paraplegia (CMS/HCC) Social History Tobacco Use [...] Info) Description 04/03/2025 2:30 PM EDT Telemedicine [facility] [address] [place] [phone] Kaylah Foley MD [address] [place] [phone] documented as of this encounter Visit Diagnoses Diagnosis Flaccid paraplegia (CMS/HCC) Paraplegia documented in this encounter Additional Health Concerns Assessment Noted Time PHQ-9 Depression Total Score: 1 08/19/20 23 9:39 AM EDT documented as of this encounter Care Teams Project Designer Relationship Specialty Start Date End Date Kaylah Foley MD [address] [place] [phone] PCP - General Family Medicine 06/02/17 documented as of this encounter
--- OUTSIDE RECORDS SUMMARY | 2025-02-21 11:20 | XMS_ITS | Data Portability ---
Author Organization [employer] Address [address] [place] [address] Care Team Providers Care Grain Loader Name Role Phone HIM YOEL OTHER Assessment Encounter Date Assessment Date Assessment LastModified by Organization Details LastModified Time 07/03/2024 07/03/2024 As noted, we were called to see this patient regarding concerns of penile pain. Evaluation in the field was performed by my media associate colleague, as noted above, I provided real-time direction and supervision for this visit. The evaluation revealed same. Impression: Complex 63yo/m with hx of paraplegia and neurogenic bladder who self catheterizes who called for evaluation for continued penile pain. Patient is 63 and interviewed with spanish medical interpreter, and medic in home reports patient [...] Go To The Location Of Their Choice, [id number] 10:06:52 Referral None recorde d. Procedures None [...] culture,comp rehensive Final report Not Available [facility] ([facility]) [address], [place], [address], 07/06/2024 12:06:12 07/03/20 24 07/06/2024 URINE CULTU RE,CO MPREH ENSIV E result 1 COMMEN T No growt h in 36 - 48 hours . Not Available [facility] ([facility]) [address] [facility], [place], [address], 07/06/2024 12:06:12 Result Notes None recorded. Medical [...] Not Available No t Available Artificial Tears (vh285-ycuabje ll-glycerin) 1 %-0.2 %-0.2 % eye drops [...] Details Last Updated DateTime 4 76 /min 44731.9 6 g 95 % 95 % 97.6 [degF] 18 /min 76 mm[Hg] 48 mm[Hg] Not Available [employer] - production 4 16:34:42 Date Recorded Body temperature Respiratory rate Heart rate Oxygen saturation Oxygen saturation in Arterial blood by Pulse oximetry Systolic blood pressure Diastolic blood pressure Provider Name and Address Organization Details Last Updated DateTime 4 98.9 [degF] 18 /min 70 /min 97 % 97 % 148 mm[Hg] 84 mm[Hg] Not Available [employer] - production 4 19:32:45 Date Recorded Heart rate Body temperature Oxygen saturation Oxygen saturation in Arterial blood by Pulse oximetry Respiratory rate Systolic blood pressure Diastolic blood pressure Provider Name and Address Organization Details Last Updated DateTime 4 70 /min 97.5 [degF] 96 % 96 % 16 /min 119 mm[Hg] 72 mm[Hg] Not Available [employer] - production 4 18:17:22 Social History None recorded. Functional Status None recorded. Mental Status None recorded. Family History Nothing Reported. Medical History No medical history recorded. Past Encounters Encounter ID Performer Location Encounter Start Date Encounter Closed Date Diagnosis/Indication Diagnosis SNOMED-CT Code Diagnosis ICD10 Code Diagnosis Note [id number] YAMINI LEMUS MD Main - [facility] [address] [place] [phone] 12/17/2023 16:34:41 12/17/2023 19:30:05 Low blood pressure 65669175 I95.9 Evaluation in the field was performed by my media associate colleague, as noted above, I provided real-time [...] BP was checked 3 times by the media associate and the highest value of BP 76/48. Pt afebrile but with diffuse abdominal pain, guarding.G vasu hypotensio n, severe abdominal pain and the fact that pt lives by himself, he is a high risk of developing sepsis. Impression :Hypotensi on/ abdominal pain/ possible UTI Plan:Pt to be transporte d to [facility]. Expect called. Primary care, consider__ _ Dispositio n: [facility] ED [id number] Jovan Hawk MD Main - [facility] [address] [place] [phone] 01/07/2024 19:32:43 01/08/2024 00:36:17 Chronic abdominal pain 013945207 R10.9 This 63-year-ol d male has had intermitte nt abdominal pain for over three weeks. He was recently evaluated in the ER with a negative workup. He continues to have pain not responding to Tylenol. I ordered Toradol 15 mg IM and suggested he alternate ibuprofen and Tylenol. He will follow-up with his PCP. The patient agreed with this plan. [id number] Mathew Nguyen MD Main - [facility] [address] [place] [phone] 07/03/2024 18:17:19 07/03/2024 20:33:59 Pain in penis [id number] N48.89 Health Concerns Section Related Observation LastModified by Organization Detai ls LastModified Time None Recorded Concern Status LastModified by Organization Details LastModified Time None Recorded Advance Directives Directive None Recorded Payers Insurance Date Sequence Insurance Name Policy Number Policy Joseph Covered Member ID Joseph Member ID Guarantor Name 07/03/2024 1 [facility] - DOS ON OR AFTER 2023 - DUAL ELIGIBLE - GROUP HOME OPTIONS AND ONE CARE (MEDICARE REPLACEMENT/ADV ANTAGE - HMO) Erasmo Robleso [id number] Erasmojean pierre MeltonCharles Notes Date Note Type Note Provider Name and Address Organization Details Recorded Time 12/17/2023 text/html [facility] Nurse Triage Notes (Freddy Trejo): Reason For Request: Pt reporting 7 out of 8 centralized abdominal pain 11/14/23 mbr went to ED for similar pain (not as strong pain as being reported today)>was given antibiotic which did not help as much. 12/14/23 mbr presented to [facility] for similar pain and received antibiotic shot and was sent home with a medication that was 3x a day for pain and made him urinate redish color. 12/15/23 mbr worsened and went to ED> Chief Complaints: Pain Allergies: No Known Comments: [employer] verified the member's name//address and phone number. [...] .................. .................. .................. .................. .................. .................. ............... Needle Punch Machine Operator Helper Note From Daniel Herrera: Pt co lower clenching tingling abdominal pain , painful upon palpation, denies urinary pain fever sob confusion cp. baseline vitals assessed. Very hypotensive. Abdomen had pain upon palpitation. Pt wincing in pain. [facility] contacted and advised ER. Pt agreed. 911 called pt transported to [facility]. .................. .................. .................. .................. .................. .................. .................. ............... Disposition: Ravi LEMUS MD [address] [facility], [place], [address], [employer] 12/17/2023 18:30:41 01/07/2024 text/html HPI: HX: Paraplegia following meningitis. Recurrent UTI with urinary retention. Anticoag on coumadin. Seen at [facility] 01/06/24 with negative work up for pain in lower abdomen. Patient reorts nausea and pain worse after eating currently 02/24. No vomiting and BM today. Team appt scheduled for Wednesday. .................. .................. .................. .................. .................. .................. .................. ............... [facility] Nurse Triage Notes (Freddy Trejo): Comments: Reviewed HPI Jovan Hawk MD [address] [facility], [place], [address], [employer] 01/07/2024 19:38:39 07/03/2024 text/html HPI: MS called and member not on the line, she states member was in ER, he is home and can't sleep and has pain and wants someone to come see him. [employer] Sprayer obtained hourly sign language interpreter ID# [id number]. Erasmo states he went to ER because [...] .................. .................. .................. .................. .................. .................. ............... Needle Punch Machine Operator Helper Note From Manish Thomas: Pt reports one [...] an in person eval. Red flags reviewed. [facility] Lab Orders: culture, urine: Performed .................. .................. .................. .................. .................. .................. .................. ............... Disposition: Fulfilled Mathew Nguyen MD [address] [facility],[address], [place], [address], [employer] 07/03/2024 18:45:33
--- OUTSIDE RECORDS SUMMARY | 2025-02-21 11:20 | XMS_ITS | Encounter Summary ---
Author Organization [employer] Address [address] [facility] [address] [place] [address] Care Team Providers Care Sales And Marketing Representative Name Role Phone Kaylah Foley MD Primary Care Provider + Reason for Visit * Reason Comments Med Refill Encounter Details Date Type Department Care Team ([facility] st Contact Info) Description 09/29/2023 Refill [facility] [address] [place], [place] [phone] Kaylah Foley MD [address] [place], [place] [phone] Flaccid paraplegia (CMS/HCC) Social History Tobacco Use [...] Info) Description 04/03/2025 2:30 PM EDT Telemedicine [facility] [address] [place] [phone] Kaylah Foley MD [address] [place] [phone] documented as of this encounter Visit Diagnoses Diagnosis Flaccid paraplegia (CMS/HCC) Paraplegia documented in this encounter Additional Health Concerns Assessment Noted Time PHQ-9 Depression Total Score: 1 08/19/20 23 9:39 AM EDT documented as of this encounter Care Teams Sales And Marketing Representative Relationship Specialty Start Date End Date Kaylah Foley MD [address] [place] [phone] PCP - General Family Medicine 06/02/17 documented as of this encounter
--- OUTSIDE RECORDS SUMMARY | 2025-02-21 11:20 | XMS_ITS | Encounter Summary ---
Author Organization [employer] Address [address] [facility] [address] [place] [address] Care Team Providers Care Office Equipment Technician Name Role Phone Kaylah Foley MD Primary Care Provider + Reason for Visit * Reason Comments Med Refill Encounter Details Date Type Department Care Team (Late st Contact Info) Description 02/04/2023 Refill [facility] [address] [place], [place] [phone] Kaylah Foley MD [address] [place] [address] Anxiety Social History Tobacco Use Types Packs/Day [...] Info) Description 04/03/2025 2:30 PM EDT Telemedicine [facility] [address] [place] [address] Kaylah Foley MD [address] [place] [phone] documented as of this encounter Visit Diagnoses Diagnosis Anxiety Anxiety state, unspecified documented in this encounter Care Teams Office Equipment Technician Relationship Specialty Start Date End Date Kaylah Foley MD [address] [place] [address], [place] [address] PCP - General Family Medicine 06/02/17 documented as of this encounter
--- OUTSIDE RECORDS SUMMARY | 2025-02-21 11:20 | XMS_ITS | Encounter Summary ---
Author Organization [employer] Address [address] [facility] 7[address] [place] [address] Care Team Providers Care Harbor Department Manager Name Role Phone Kaylah Foley MD Primary Care Provider + Reason for Visit * Reason Onset Date Comments Med Refill 03/12/2023 Encounter Details Date Type Department Care Team ([facility] st Contact Info) Description 03/12/2023 Telephone [facility] [address] [place], [place] [phone] Kaylah Foley MD [address] [place], [place] [phone] Med Refill Social History Tobacco Use Types [...] on 03/16/23. * Telephone Encounter - Guido Marcial Allred - 03/12/2023 9:09 AM EDT Tc from pt requesting med refill on oxyCODONE-acetaminophen (Percocet) 5-325 MG tablet Please sent to [facility] - [place], [place] - [address] [place] [address] documented in this encounter Plan of Treatment Upcoming Encounters Date Type Department Care Team (Late st Contact Info) Description 04/03/2025 2:30 PM EDT Telemedicine [facility] [address] [place] [address] Kaylah Foley MD [address] [place] [address] documented as of this encounter Visit Diagnoses Not on filedocumented in this encounter Care Teams Harbor Department Manager Relationship Specialty Start Date End Date Kaylah Foley MD [address] [place] [address] PCP - General Family Medicine 06/02/17 documented as of this encounter
--- OUTSIDE RECORDS SUMMARY | 2025-02-21 11:20 | XMS_ITS | Encounter Summary ---
Author Organization [employer] Address [address] [facility] 7[address] [place] [address] Care Team Providers Care Rn Cardiovascular Name Role Phone Kaylah Foley MD Primary Care Provider + Reason for Visit * Reason Onset Date Comments Medication Question 07/05/2024 Encounter Details Date Type Department Care Team ([facility] st Contact Info) Description 07/05/2024 Telephone [facility] [address] [place], [place] [phone] Kaylah Foley MD [address] [place], [place] [phone] Medication Question Social History Tobacco Use Types [...] enough money to get more: Never True 11/ 11/2022 Transportation Answer Date Recorded In the [...] Info) Description 04/03/2025 2:30 PM EDT Telemedicine [facility] [address] [place] [address] Kaylah Foley MD [address] [place] [address] documented as of this encounter Visit Diagnoses Not on filedocumented in this encounter Additional Health Concerns Assessment Noted Time PHQ-9 Depression Total Score: 3 10/07/20 23 9:51 AM EST documented as of this encounter Care Teams Rn Cardiovascular Relationship Specialty Start Date End Date Kaylah Foley MD [address] [place] [phone] PCP - General Family Medicine 06/02/17 documented as of this encounter
--- OUTSIDE RECORDS SUMMARY | 2025-02-21 11:20 | XMS_ITS | Clinical Summary ---
Author Organization [employer] Address [address] [facility] 7[address] [place] [address] Care Team Providers Care Broiler Supervisor Name Role Phone Kaylah Foley MD [...] PAIN 500 mL 11 10/31/19 25 Active clonazePAM (KlonoPIN) 0.5 MG tabletIndicat ions:Mixed anxiety and depressive disorder TAKE 1 TABLET BY MOUTH TWICE DAILY IN THE MORNING AND AT BEDTIME NEEDED FOR ANXIETY 56 tablet 02/09/20 25 Active zolpidem (Ambien) 5 MG tablet TAKE 1 TABLET BY MOUTH AT BEDTIME NEEDED for SLEEP 28 tablet 02/16/20 25 Active zolpidem (Ambien) 5 MG tablet TAKE 1 TABLET BY MOUTH AT BEDTIME NEEDED for SLEEP 28 tablet 01/11/20 25 025 Discontinued(Re order (will not trigger notification to Pharmacy)) clonazePAM (KlonoPIN) 0.5 MG tabletIndicat ions:Mixed anxiety and depressive disorder Take 1 tablet (0.5 mg) by mouth if needed in the morning and at bedtime for anxiety. 56 tablet 01/11/20 25 025 Discontinued nitrofurantoi n, macrocrystal- monohydrate, (Macrobid) 100 MG capsule Take 1 capsule (100 mg) by mouth 2 times daily for 5 days. 10 capsule 02/10/20 25 025 Active Problems Problem Noted Date Diagnosed Date [...] them in the green disposal bin, Frida Manager Diesel, [facility] witnessed the procedure. 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 Due to wheelchair bound condition, he cont be at risk of DVT. Will consult with hematology to see if there is an alternative, newer anticoagulant that has not yet been approved for retirement DVT prophylaxis Vitamin D deficiency 04/04/2018 Visual [...] Description 02/09/2025 9:00 AM EDT Office Visit [facility] [address] [place] [address] Manish Argueta MD Dysuria (Primary Dx); UTI symptoms 02/09/2025 Refill [facility] [address] [place] [address] Kaylah Foley MD 02/08/2025 Refill [facility] [address] [place] [address] Kaylah Foley MD Mixed anxiety and depressive disorder 01/29/2025 Telephone [facility] [address] [place] [address] Kaylah Foley MD Call Back Request 01/29/2025 Telephone [facility] [address] [place] [phone] Kaylah Foley MD Durable Medical Equipment (L&C Form: Incontinence Supplies) 01/25/2025 Telephone [facility] [address] [place] [phone] Kaylah Foley MD Appointment Request 01/10/2025 Refill [facility] [address] [place] [phone] Kaylah Foley MD Mixed anxiety and depressive disorder 01/10/2025 Refill [facility] [address] [place] [phone] Kaylah Foley MD 01/02/2025 Telephone [facility] [address] [place] [phone] Kaylah Foley MD March12/13/2024 Refill [facility] [address] [place] [address] Kaylah Foley MD Mixed anxiety and depressive disorder 12/11/2024 Refill [facility] [address] [place] [address] Kaylah Foley MD 12/01/2024 11:45 AM EST Telemedicine [facility] [address] [place] [phone] Kaylah Foley MD Mixed anxiety and depressive disorder (Primary Dx) 12/01/2024 Travel 11/30/2024 Telephone [facility] [address] [place] [phone] Kaylah Foley MD Chart prep from Last 3 Months Immunizations Name Administration [...] housing situation today? I have rock levi 10/24/[address] you li [...] Info) Description 04/03/2025 2:30 PM EDT Telemedicine [facility] [address] [place], [place] [phone] Kaylah Foley MD [address] [place] [address] Health Maintenance Due Date Last Done Comments [...] Procedure Name Priority Date/Time Associated Diagnosis Comments CULTURE, URINE, ROUTINE Routine 02/09/2025 9:59 AM EDT Dysuria POCT URINALYSIS DIPSTICK Routine 02/09/2025 9:09 AM EDT UTI symptoms HEPATITIS PANEL, GENERAL Routine 10/07/2023 10:48 AM EST Encounter for preventive health examination Presence of intrathecal baclofen pump LIPID PANEL WITH REFLEX TO DIRECT LDL Routine 10/07/2023 10:48 AM EST Encounter for preventive health examination from Last 3 Months or Most Recently Relevant to Health Maintenance Results * Culture, Urine, Routine (02/09/2025 9:59 AM EDT) Urine Urine specimen obtained by clean catch procedure / Unknown 02/09/2025 9:59 AM EDT 02/09/2025 4:16 PM EDT Comment:UACC Narrative [facility] - 02/12/2025 7:53 AM EDT Klebsiella pneumoniae Quant > 100,000 cfu/mL Klebsiella pneumoniae: Ampicillin 8(R) Klebsiella pneumoniae: Cefazolin 2(S) Klebsiella pneumoniae: Cefepime <=0.12(S) Klebsiella pneumoniae: Ceftriaxone <=0.25(S) Klebsiella pneumoniae: Ciprofloxacin <=0.06(S) Klebsiella pneumoniae: Gentamicin <=1(S) Klebsiella pneumoniae: Nitrofurantoin <=16(S) Klebsiella pneumoniae: Trimethoprim/Sulfamethoxazole <=20(S) Specimen Source: Urine clean catch Manish Argueta MD LAB MICROBIOLOGY - GENERAL ORDER LORRI Final Result [facility] [address] [place] [phone] * (ABNORMAL) POCT urinalysis dipstick manually resulted [...] None Detected Urine 02/09/2025 9:09 AM EDT us Manish Argueta MD POINT OF CARE TEST ENTER/EDIT OR DERABLES Final Result * (ABNORMAL) Lipid Panel with Reflex to Direct LDL (10/07/2023 10:48 AM EST) Triglycerides 75 <150 mg/dL [facility] Comment:Desirable Triglyceri de: less than 150 mg/dLBorderline High Triglyceride 150-199 mg/dLHigh Triglyceride: 200-499 mg/dLVery High Triglyceride: greater than or equal to 5OO mg/dL Cholesterol 166 <200 mg/dL [facility] Comment:Desirable Cholestero l: less than 200 mg/dLBorderline High Cholesterol: 200-239 mg/dLHigh Cholesterol: greater than 239 mg/dL LDL Cholesterol Calculated 112(H) <100 mg/dL [facility] Comment:Desirable LDL: less than 100 mg/dLNear Optimal/Above Optimal LDL: 110- 129 mg/dLBorderline High LDL: 130-159 mg/dLHigh LDL: 160-189 mg/dLVery High LDL: greater than or equal to 190 mg/dL HDL Cholesterol 39(L) >40 mg/dL [facility] Comment:Desirable HDL: great er than 40 mg/dL Note: This HDL assay may give artificially low results in patients with liver disease. Blood 10/07/2023 10:4 8 AM EST 10/07/2023 11:22 AM EST us Kaylah Foley MD LAB BLOOD ORDERABLES Fin al Result [facility] [address] [place] [phone] * Hepatitis Panel, General (10/07/2023 10:48 AM EST) Hepatitis A IgM Nonreactive Nonreactive [facility] Comment:IgM antibodies to REDE V not detected; does not exclude earlyacute or recovered HAV infection. ~Hepatitis B Surface Antibody REACTIVE Nonreactive [facility] Comment:REACTIVE: > 11.99 mI U/mL Hepatitis B Core Antibody Reactive Nonreactive [facility] Comment:Presumptive evidence of anti-HBc. Hepatitis C Antibody Nonreactive Nonreactive [facility] Comment:Antibodies to HCV no t detected; does not exclude early acuteHCV infection. Hepatitis B Surface Ag Negative Negative [facility] Blood 10/07/2023 10:4 8 AM EST 10/07/2023 11:22 AM EST us Kaylah Foley MD LAB BLOOD ORDERABLES Fin al Result [facility] [address] [place] [phone] from Last 3 Months or Most Recently Relevant to Health Maintenance Insurance [facility] (O D-SNP) [place]OS [id number] Care Teams Broiler Supervisor Relationship Specialty Start Date End Date Kaylah Foley MD [address] [place] [phone] PCP - General Family Medicine 06/02/17
--- OUTSIDE RECORDS SUMMARY | 2025-02-21 11:20 | XMS_ITS | Encounter Summary ---
Author Organization [employer] Address [address] [facility] [address] [place] [address] Care Team Providers Care Flocculator Operator Name Role Phone Kaylah Foley MD Primary Care Provider + Reason for Visit * Reason Comments Med Refill Encounter Details Date Type Department Care Team ([facility] st Contact Info) Description 05/08/2024 Refill [facility] [address] [place], [place] [phone] Kaylah Foley MD [address] [place], [place] [phone] Anxiety Social History Tobacco Use Types Packs/Day [...] Info) Description 04/03/2025 2:30 PM EDT Telemedicine [facility] [address] [place] [address] Kaylah Foley MD [address] [place] [address] documented as of this encounter Visit Diagnoses Diagnosis Anxiety Anxiety state, unspecified documented in this encounter Additional Health Concerns Assessment Noted Time PHQ-9 Depression Total Score: 3 10/07/20 23 9:51 AM EST documented as of this encounter Care Teams Flocculator Operator Relationship Specialty Start Date End Date Kaylah Foley MD [address] [place] [address] PCP - General Family Medicine 06/02/17 documented as of this encounter
== END 2025-02-21 11:03 | disposition home or self-care (01) ==
LOC: HO.HGI 10:08
PROVIDERS: PCP Internal Medicine; Visit Provider Nurse Practitioner
DX: K59.04 Chronic idiopathic constipation (principal); R10.9 Unspecified abdominal pain; Z99.3 Dependence on wheelchair
CPT/HCPCS: 99214

== ENCOUNTER → 2025-02-21 10:07 | Outpatient (BNVA) | payer OTHER, SELFPAY | PROVIDERS: PCP Internal Medicine; Visit Provider Nurse Practitioner | DX: K59.04 Chronic idiopathic constipation (principal); R10.9 Unspecified abdominal pain; Z99.3 Dependence on wheelchair | CPT/HCPCS: 99212 ==

== ENCOUNTER 2025-02-28 10:19 | Day surgery (SDC) | payer OTHER, SELFPAY ==
--- OUTSIDE RECORDS SUMMARY | 2025-01-29 15:40 | XMS_ITS | Encounter Summary ---
Author Organization [employer] Address [address] [facility] [address] [place] [address] Care Team Providers Care Clinical Trial Manager Name Role Phone Kaylah Foley MD Primary Care Provider + Reason for Visit * Reason Onset Date Comments Durable Medical Equipment 01/29/2025 L&C Fo rm: Incontinence Supplies Encounter Details Date Type Department Care Team ([facility] st Contact Info) Description 01/29/2025 Telephone [facility] [address] [place], [place] [phone] Kaylah Foley MD [address] [place], [place] [phone] Durable Medical Equipment (L&C Form: Incontinence Supplies) Social History Tobacco Use Types Packs/Day Years Used Date Smoking Tobacco: Former Cigarettes Q uit: 2003 Passive Smoke Exposure: Past Alcohol Use Standard Drinks/Week Comments Not Currently 0 (1 standard drink = 0.6 oz pur e alcohol) Quit 2003 Depression Answer Date Recorded Patient Health Questionnaire-9 Score 3 10/07/2023 Patient Health Questionnaire-9 Score 3 10/07/2023 Last PHQ-9: Questionnaire Data Not on file 1 12/08/2022 Housing Stability Answer Date Recorded What is your housing situation today? I have rock sims 10/24/[address] you li ve. Do you have problems with any of the following? None of the above 10/24/2024 Food Insecurity Answer Date Recorded Within the past 12 months, y ou worried that your food would run out before you got money to buy more: Never True 10/24/2024 Within the past 12 months,th e food you bought just didn't last and you didn't have enough money to get more: Never True 04/2025 Transportation Answer Date Recorded In the past 12 months, has l ack of transportation kept you from medical appts, meetings, work or from getting things needed for daily living? No 10/24/2024 Utilities Answer Date Recorded In the past 12 months, has t he electric, gas, oil or water company threatened to shut off services in your home? No 10/24/2024 Depression Answer Date Recorded Patient Health Questionnaire-2 Score 0 10/24/2024 Internet Access Answer Date Recorded Internet Access Q1 No 10/24/2024 Internet Access Q2 I do not want or need it 04/2025 Sex and Gender Information Value Date Recorded Sex Assigned at Male 08/17/2022 10:18 AM EDT Legal Sex Male 10:18 AM EDT Gender Identity Male 08/17/2022 10:18 AM EDT Sexual Orientation Choose not to disclose 2021 10:18 AM EDT documented as of this encounter Miscellaneous Notes * Telephone Encounter - Kimberly Powell - 01/29/2025 11:28 AM EDT Confirmation of order for Diapers/pull ups and Disposable underpads/bedpads from [facility] placed on PCP desk for signature. documented in this encounter Plan of Treatment Upcoming Encounters Date Type Department Care Team (Late st Contact Info) Description 04/03/2025 2:30 PM EDT Telemedicine [facility] [address] [place] [address] Kaylah Foley MD [address] [place] [address] documented as of this encounter Visit Diagnoses Not on filedocumented in this encounter Additional Health Concerns Assessment Noted Time PHQ-9 Depression Total Score: 3 10/07/20 23 9:51 AM EST documented as of this encounter Care Teams Clinical Trial Manager Relationship Specialty Start Date End Date Kaylah Foley MD [address] [place] [address] PCP - General Family Medicine 06/02/17 documented as of this encounter
--- OUTSIDE RECORDS SUMMARY | 2025-01-29 15:40 | XMS_ITS | Encounter Summary ---
Author Organization [employer] Address [address] [facility] [address] [place] [address] Care Team Providers Care Bag Machine Tender Name Role Phone Kaylah Foley MD Primary Care Provider + Encounter Details Date Type Department Care Team (Late st Contact Info) Description 08/18/2024 Orders Only [facility] [address] [place], [place] [phone] Kaylah Foley MD [address] [place], [place] [phone] Mixed anxiety and depressive disorder (Primary Dx) Social History Tobacco Use Types Packs/Day Years [...] housing situation today? I have rock sims 08/19/[address] you li ve. Do you have problems with any of the following? None of the above 08/19/2023 Food Insecurity Answer Date Recorded Within the past 12 months, y ou worried that your food would run out before you got money to buy more: Never True 08/19/2023 Within the past 12 months,th e food you bought just didn't last and you didn't have enough money to get more: Never True 11/2022 Transportation Answer Date Recorded In the past 12 months, has l ack of transportation kept you from medical appts, meetings, work or from getting things needed for daily living? Yes, it has kept me from medical appointments or getting medications. 10/07/2023 Utilities Answer Date Recorded In the past 12 months, has t he electric, gas, oil or water company threatened to shut off services in your home? No 08/19/2023 Depression Answer Date Recorded Patient Health Questionnaire-2 Score 2 10/07/2023 Sex and Gender Information Value Date Recorded Sex Assigned at Male 08/17/2022 10:18 AM EDT Legal Sex Male 10:18 AM EDT Gender Identity Male 08/17/2022 10:18 AM EDT Sexual Orientation Choose not to disclose 2021 10:18 AM EDT documented as of this encounter Plan of Treatment Upcoming Encounters Date Type Department Care Team (Late st Contact Info) Description 04/03/2025 2:30 PM EDT Telemedicine [facility] [address] [place] [phone] Kaylah Foley MD [address] [place] [address] documented as of this encounter Visit Diagnoses Diagnosis Mixed anxiety and depressive disorder- Primary Dysthymic disorder documented in this encounter Additional Health Concerns Assessment Noted Time PHQ-9 Depression Total Score: 3 10/07/20 23 9:51 AM EST documented as of this encounter Care Teams Bag Machine Tender Relationship Specialty Start Date End Date Kaylah Foley MD [address] [place] [phone] PCP - General Family Medicine 06/02/17 documented as of this encounter
--- OUTSIDE RECORDS SUMMARY | 2025-01-29 15:40 | XMS_ITS | Encounter Summary ---
Author Organization [employer] Address [address] [facility] [address] [place] [address] Care Team Providers Care Route Driver Coin Machines Name Role Phone Kaylah Foley MD Primary Care Provider + Reason for Visit * Reason Comments Med Refill Encounter Details Date Type Department Care Team ([facility] st Contact Info) Description 05/16/2024 Refill [facility] [address] [place], [place] [phone] Erum Scott MD [address] [place], [place] [phone] Flaccid paraplegia (CMS/HCC) Social History Tobacco Use Types Packs/Day Years [...] Info) Description 04/03/2025 2:30 PM EDT Telemedicine [facility] [address] [place] [address] Kaylah Foley MD [address] [place] [address] documented as of this encounter Visit Diagnoses Diagnosis Flaccid paraplegia (CMS/HCC) Paraplegia documented in this encounter Additional Health Concerns Assessment Noted Time PHQ-9 Depression Total Score: 3 10/07/20 23 9:51 AM EST documented as of this encounter Care Teams Route Driver Coin Machines Relationship Specialty Start Date End Date Kaylah Foley MD [address] [place] [address] PCP - General Family Medicine 06/02/17 documented as of this encounter
--- OUTSIDE RECORDS SUMMARY | 2025-01-29 15:40 | XMS_ITS | Encounter Summary ---
Author Organization [employer] Address 75 [facility] 7t [place] [address] Care Team Providers Care Land Management Forester Name Role Phone Kaylah Foley MD Primary Care Provider + Reason for Visit * Reason Onset Date Comments Call Back Request 01/29/2025 Encounter Details Date Type Department Care Team ([facility] Contact Info) Description 01/29/2025 Telephone [facility] MEDICINE [address] [place], [place] [phone] Kaylah Foley MD [address] [place], [place] [phone] Call Back Request Social History Tobacco Use Types Packs/Day Years [...] is your housing situation today? I have rockron sims 10/24/[address] you [...] encounter Miscellaneous Notes * Telephone Encounter - Rohan Gaitan RN - 01/29/2025 2:14 PM EDT TC placed to Payton at Gastroenterology office at [facility] [phone] regarding the below message. RN left VM for Payton to Red team nurses. * Telephone Encounter - Suleiman Siddiqui - 01/29/2025 2:01 PM EDT Tc from Payton with [facility] requesting a call back regarding medication apixaban (Eliquis) 2.5 MG tablet. Contact Payton at [phone] documented in this encounter Plan of Treatment Upcoming Encounters Date Type Department Care Team (Late st Contact Info) Description 04/03/2025 2:30 PM EDT Telemedicine [facility] MEDICINE [address] [place] [address] Kaylah Foley MD [address] [place] [address] documented as of this encounter Visit Diagnoses Not on filedocumented in this encounter Additional Health Concerns Assessment Noted Time PHQ-9 Depression Total Score: 3 10/07/20 23 9:51 AM EST documented as of this encounter Care Teams Land Management Forester Relationship Specialty Start Date End Date Kaylah Foley MD [address] [place] [address] PCP - General Family Medicine 06/02/17 documented as of this encounter
--- OUTSIDE RECORDS SUMMARY | 2025-01-29 15:40 | XMS_ITS | Encounter Summary ---
Author Organization [employer] Address 75 [facility] 7t [place] [address] Care Team Providers Care Assistant Produce Manager Name Role Phone Kaylah Foley MD Primary Care Provider + Reason for Visit * Reason Onset Date Comments Medication Question 07/05/2024 Encounter Details Date Type Department Care Team ([facility] st Contact Info) Description 07/05/2024 Telephone [facility] MEDICINE [address] [place], [place] [phone] Kaylah Foley MD [address] [place], [place] [phone] Medication Question Social History Tobacco Use Types Packs/Day Years [...] housing situation today? I have rockron sims 08/19/[address] you [...] encounter Miscellaneous Notes * Telephone Encounter - Elma Taylor - 07/05/2024 9:15 AM EDT Tc from pt requesting to see if pcp can prescribe medication phenazopyridine. States had gotten it at the ER 06/29/24 and has no more pills at this time. Please call pt to clarify. documented in this encounter Plan of Treatment Upcoming Encounters Date Type Department Care Team (Late st Contact Info) Description 04/03/2025 2:30 PM EDT Telemedicine [facility] MEDICINE [address] [place] [address] Kaylah Foley MD [address] [place] [address] documented as of this encounter Visit Diagnoses Not on filedocumented in this encounter Additional Health Concerns Assessment Noted Time PHQ-9 Depression Total Score: 3 10/07/20 23 9:51 AM EST documented as of this encounter Care Teams Assistant Produce Manager Relationship Specialty Start Date End Date Kaylah Foley MD [address] [place] [address] PCP - General Family Medicine 06/02/17 documented as of this encounter
--- OUTSIDE RECORDS SUMMARY | 2025-01-29 15:40 | XMS_ITS | Encounter Summary ---
Author Organization [employer] Address 75 [facility] 7t [place] [address] Care Team Providers Care Folding Machine Feeder Name Role Phone Kaylah Foley MD Primary Care Provider + Reason for Visit * Reason Onset Date Comments Appointment Request 01/25/2025 Encounter Details Date Type Department Care Team ([facility] st Contact Info) Description 01/25/2025 Telephone [facility] MEDICINE [address] [place], [place] [phone] Kaylah Foley MD [address] [place], [place] [phone] Appointment Request Social History Tobacco Use Types Packs/Day [...] encounter Miscellaneous Notes * Telephone Encounter - Dawn Saucedo MA - 01/26/2025 8:58 AM EDT Tc to pt to reschedule OV appt with PCP as Provider won't be in that morning. Appt has been rescheduled for 04/03/25 at 2:30 pm. documented in this encounter Plan of Treatment Upcoming Encounters Date Type Department Care Team (Late st Contact Info) Description 04/03/2025 2:30 PM EDT Telemedicine [facility] MEDICINE [address] [place] [address] Kaylah Folye MD [address] [place] [address] documented as of this encounter Visit Diagnoses Not on filedocumented in this encounter Additional Health Concerns Assessment Noted Time PHQ-9 Depression Total Score: 3 10/07/20 23 9:51 AM EST documented as of this encounter Care Teams Folding Machine Feeder Relationship Specialty Start Date End Date Kaylah Foley MD [address] [place] [address] PCP - General Family Medicine 06/02/17 documented as of this encounter
--- OUTSIDE RECORDS SUMMARY | 2025-01-29 15:40 | XMS_ITS | Encounter Summary ---
Author Organization [employer] Address 75 [facility] 7t [place] [address] Care Team Providers Care Corporate Technical Recruiter Name Role Phone Kaylah Foley MD Primary Care Provider + Reason for Visit * Reason Onset Date Comments Med Refill 03/12/2023 Encounter Details Date Type Department Care Team ([facility] st Contact Info) Description 03/12/2023 Telephone [facility] MEDICINE [address] [place], [place] [phone] Kaylah Foley MD [address] [place], [place] [phone] Med Refill Social History Tobacco Use Types Packs/Day Years Used Date Smoking Tobacco: Never Sex and Gender Information Value Date Recorded Sex Assigned at Male 08/17/2022 10:18 AM EDT Legal Sex Male 10:18 AM EDT Gender Identity Male 08/17/2022 10:18 AM EDT Sexual Orientation Choose not to disclose 2021 10:18 AM EDT COVID-19 Exposure Response Date Recorded In the last 10 days, have yo u been in contact with someone who was confirmed or suspected to have Coronavirus/COVID-19? No / Unsure 03/01/2023 9:17 AM EDT documented as of this encounter Miscellaneous Notes * Telephone Encounter - Arlet Quijano RN - 03/12/2023 9:39 AM EDT Percocet refill too early. Medication is not due until 03/18/23. Will forward to PCP on 03/16/23. * Telephone Encounter - Guido Allred - 03/12/2023 9:09 AM EDT Tc from pt requesting med refill on oxyCODONE-acetaminophen (Percocet) 5-325 MG tablet Please sent to [facility] - [place], [place] - [address] [place] [address] documented in this encounter Plan of Treatment Upcoming Encounters Date Type Department Care Team (Late st Contact Info) Description 04/03/2025 2:30 PM EDT Telemedicine [facility] MEDICINE [address] [place] [address] Kaylah Foley MD [address] [place] [address] documented as of this encounter Visit Diagnoses Not on filedocumented in this encounter Care Teams Corporate Technical Recruiter Relationship Specialty Start Date End Date Kaylah Foley MD [address] [place] [address] PCP - General Family Medicine 06/02/17 documented as of this encounter
--- OUTSIDE RECORDS SUMMARY | 2025-01-29 15:41 | XMS_ITS | Encounter Summary ---
Author Organization [employer] Address 75 [facility] 7t [place] [address] Care Team Providers Care Physicist Solid State Name Role Phone Kaylah Foley MD Primary Care Provider + Reason for Visit * Reason Comments Med Refill Encounter Details Date Type Department Care Team ([facility] st Contact Info) Description 12/02/2023 Refill [facility] DIABETES/NUTRITION [address] [place], [place] [phone] Kaylah Foley MD [address] [place], [place] [phone] Anxiety Social History Tobacco Use Types Packs/Day Years [...] Info) Description 04/03/2025 2:30 PM EDT Telemedicine [facility] MEDICINE [address] [place] [address] Kaylah Foley MD [address] [place] [address] documented as of this encounter Visit Diagnoses Diagnosis Anxiety Anxiety state, unspecified documented in this encounter Additional Health Concerns Assessment Noted Time PHQ-9 Depression Total Score: 3 10/07/20 23 9:51 AM EST documented as of this encounter Care Teams Physicist Solid State Relationship Specialty Start Date End Date Kaylah Foley MD [address] [place] [address] PCP - General Family Medicine 06/02/17 documented as of this encounter
--- OUTSIDE RECORDS SUMMARY | 2025-01-29 15:41 | XMS_ITS | Encounter Summary ---
Author Organization [employer] Address 75 [facility] 7t [place] [address] Care Team Providers Care Home Health Care Provider Name Role Phone Kaylah Foley MD Primary Care Provider + Encounter Details Date Type Department Care Team (Late st Contact Info) Description 09/13/[address] [facility] MEDICINE [address] [place], [place] [phone] Brenda Thompson Social History Tobacco Use Types Packs/Day Years Used Date Smoking Tobacco: Former Cigarettes Passive Smoke Exposure: Past Alcohol Use Standard Drinks/Week Comments Never 0 (1 standard drink = 0.6 oz pur e alcohol) Depression Answer Date Recorded Patient Health Questionnaire-9 Score 1 08/19/2023 Patient Health Questionnaire-9 Score 1 08/19/2023 Last PHQ-9: Questionnaire Data Not on file 1 10/19/2022 Housing Stability Answer Date Recorded What is [...] getting things needed for daily living? No 08/19/2023 Utilities Answer Date Recorded In the past 12 months, has t he electric, gas, oil or water [employer] threatened to shut off services in your home? No 08/19/2023 Depression Answer Date Recorded Patient Health Questionnaire-2 Score 1 08/19/2023 Sex and Gender Information Value Date Recorded Sex Assigned at Male 08/17/2022 10:18 AM EDT Legal Sex Male 10:18 AM EDT Gender Identity Male 08/17/2022 10:18 AM EDT Sexual Orientation Choose not to disclose 2021 10:18 AM EDT documented as of this encounter Plan of Treatment Upcoming Encounters Date Type Department Care Team (Late st Contact Info) Description 04/03/2025 2:[address] [facility] MEDICINE [address] [place] [address] Kaylah Foley MD [address] [place] [address] documented as of this encounter Visit Diagnoses Not on filedocumented in this encounter Additional Health Concerns Assessment Noted Time PHQ-9 Depression Total Score: 1 08/19/20 23 9:39 AM EDT documented as of this encounter Care Teams Home Health Care Provider Relationship Specialty Start Date End Date Kaylah Foley MD [address] [place] [address] PCP - General Family Medicine 06/02/17 documented as of this encounter
--- OUTSIDE RECORDS SUMMARY | 2025-01-29 15:41 | XMS_ITS | Encounter Summary ---
Author Organization [facility] Address 75 [facility] 7t [place] [address] Care Team Providers Care Plumber Pipe Fitting Name Role Phone Kaylah Foley MD Primary Care Provider + Reason for Visit * Reason Comments Med Refill Encounter Details Date Type Department Care Team (Late st Contact Info) Description 02/04/2023 Refill [facility] [address] [place] [address] Kaylah Foley MD [address] [place] [address] Anxiety Social History Tobacco Use Types Packs/Day Years Used Date Smoking Tobacco: Never Assessed Sex and Gender Information Value Date Recorded Sex Assigned at Male 08/17/2022 10:18 AM EDT Legal Sex Male 10:18 AM EDT Gender Identity Male 08/17/2022 10:18 AM EDT Sexual Orientation Choose not to disclose 2021 10:18 AM EDT documented as of this encounter Plan of Treatment Upcoming Encounters Date Type Department Care Team (Late st Contact Info) Description 04/03/2025 2:30 PM EDT Telemedicine [facility] MEDICINE [address] [place] [address] Kaylah Foley MD [address] [place] [address] documented as of this encounter Visit Diagnoses Diagnosis Anxiety Anxiety state, unspecified documented in this encounter Care Teams Plumber Pipe Fitting Relationship Specialty Start Date End Date Kaylah Foley MD [address] [place] [address] PCP - General Family Medicine 06/02/17 documented as of this encounter
--- OUTSIDE RECORDS SUMMARY | 2025-01-29 15:41 | XMS_ITS | Encounter Summary ---
Author Organization [email or web address] Address 75 [facility] 7t [place] [address] Care Team Providers Care Radiology Resident Name Role Phone Kaylah Foley MD Primary Care Provider + Reason for Visit * Reason Comments Med Refill Encounter Details Date Type Department Care Team ([facility] st Contact Info) Description 09/28/2023 Refill [facility] MEDICINE [address] [place], [place] [phone] Kaylah Foley MD [address] [place], [place] [phone] Flaccid paraplegia (CMS/HCC) Social History Tobacco Use [...] Info) Description 04/03/2025 2:30 PM EDT Telemedicine [facility] MEDICINE [address] [place] [address] Kaylah Foley MD [address] [place] [address] documented as of this encounter Visit Diagnoses Diagnosis Flaccid paraplegia (CMS/HCC) Paraplegia documented in this encounter Additional Health Concerns Assessment Noted Time PHQ-9 Depression Total Score: 1 08/19/20 23 9:39 AM EDT documented as of this encounter Care Teams Radiology Resident Relationship Specialty Start Date End Date Kaylah Foley MD [address] [place] [address] PCP - General Family Medicine 06/02/17 documented as of this encounter
--- OUTSIDE RECORDS SUMMARY | 2025-01-29 15:41 | XMS_ITS | Data Portability ---
Author Organization [employer] Address [address] [place] [address] Care Team Providers Care Strip Catcher Name Role Phone HIM YOEL OTHER Assessment Encounter Date Assessment Date Assessment LastModified by Organization Details LastModified Time 07/03/2024 07/03/2024 As noted, we were called to see this patient regarding concerns of penile pain. Evaluation in the field was performed by my neonatal pediatric nurse colleague, as noted above, I provided real-time direction and supervision for this visit. The evaluation revealed same. Impression: Complex 63yo/m with hx of paraplegia and neurogenic bladder who self catheterizes who called for evaluation for continued penile pain. Patient is 63 and interviewed with certified court interpreter, and medic in home reports patient [...] symptoms, particularly worsening or change in symptoms. Not available 07/03/2024 18:36:24 Plan of Treatment Reminders Order Date Submit Date Provider Last Modified By Organization Details Last Modified Time Details Appointments None recorde d. Lab culture , urine 024 07/03/20 24 CECIL [facility] (Centralized Electronic Ordering - All Locations), Patient Can Go To The Location Of Their Choice, [id number] 10:06:52 Referral None recorde d. Procedures None [...] culture,comp rehensive Final report Not Available [facility] ([facility]) [address], [place], [address], 07/06/2024 12:06:12 07/03/20 24 07/06/2024 URINE CULTU RE,CO MPREH ENSIV E result 1 COMMEN T No growt h in 36 - 48 hours . Not Available [facility] ([facility]) [address] [facility], [place], [address], 07/06/2024 12:06:12 Result Notes None recorded. Medical [...] Not Available No t Available Artificial Tears (wh354-meghivp ll-glycerin) 1 %-0.2 %-0.2 % eye drops [...] Details Last Updated DateTime 4 76 /min 66884.9 6 g 95 % 95 % 97.6 [degF] 18 /min 76 mm[Hg] 48 mm[Hg] Not Available [employer] - production 4 16:34:42 Date Recorded Body temperature Respiratory rate Heart rate Oxygen saturation Oxygen saturation in Arterial blood by Pulse oximetry Systolic blood pressure Diastolic blood pressure Provider Name and Address Organization Details Last Updated DateTime 4 98.9 [degF] 18 /min 70 /min 97 % 97 % 148 mm[Hg] 84 mm[Hg] Not Available [employer] - production 4 19:32:45 Date Recorded Heart rate Body temperature Oxygen saturation Oxygen saturation in Arterial blood by Pulse oximetry Respiratory rate Systolic blood pressure Diastolic blood pressure Provider Name and Address Organization Details Last Updated DateTime 4 70 /min 97.5 [degF] 96 % 96 % 16 /min 119 mm[Hg] 72 mm[Hg] Not Available [employer] - production 4 18:17:22 Social History None recorded. Functional Status None recorded. Mental Status None recorded. Family History Nothing Reported. Medical History No medical history recorded. Past Encounters Encounter ID Performer Location Encounter Start Date Encounter Closed Date Diagnosis/Indication Diagnosis SNOMED-CT Code Diagnosis ICD10 Code Diagnosis Note [id number] YAMINI LEMUS MD [facility] - [facility] [address] [place] [phone] 12/17/2023 16:34:41 12/17/2023 19:30:05 Low blood pressure 33234642 I95.9 Evaluation in the field was performed by my neonatal pediatric nurse colleague, as noted above, I provided real-time [...] BP was checked 3 times by the neonatal pediatric nurse and the highest value of BP 76/48. Pt afebrile but with diffuse abdominal pain, guarding.G vasu hypotensio n, severe abdominal pain and the fact that pt lives by himself, he is a high risk of developing sepsis. Impression :Hypotensi on/ abdominal pain/ possible UTI Plan:Pt to be transporte d to [facility]. Expect called. Primary care, consider__ _ Dispositio n: [facility] [place] [id number] Jovan Hawk MD Main - [facility] [address] [place] [phone] 01/07/2024 19:32:43 01/08/2024 00:36:17 Chronic abdominal pain [id number] R10.9 This 63-year-ol d male has had intermitte nt abdominal pain for over three weeks. He was recently evaluated in the ER with a negative workup. He continues to have pain not responding to Tylenol. I ordered Toradol 15 mg IM and suggested he alternate ibuprofen and Tylenol. He will follow-up with his PCP. The patient agreed with this plan. [id number] Mathew Nguyen MD Main - [facility] [address] [place] [phone] 07/03/2024 18:17:19 07/03/2024 20:33:59 Pain in penis [id number] N48.89 Health Concerns Section Related Observation LastModified by Organization Detai ls LastModified Time None Recorded Concern Status LastModified by Organization Details LastModified Time None Recorded Advance Directives Directive None Recorded Payers Encounter Date Sequence Insurance Name Policy Number Policy Joseph Covered Member ID Joseph Member ID Guarantor Name 12/17/2023 1 [facility] - DOS ON OR AFTER 2023 - DUAL ELIGIBLE - SNF OPTIONS AND ONE CARE (MEDICARE REPLACEMENT/ADV ANTAGE - HMO) Erasmo Charles [id number] Erasmo Charles 01/07/2024 1 [facility] - DOS ON OR AFTER 2023 - DUAL ELIGIBLE - SNF OPTIONS AND ONE CARE (MEDICARE REPLACEMENT/ADV ANTAGE - HMO) Erasmo Charles [id number] Erasmo Charles 07/03/2024 1 [facility] - DOS ON OR AFTER 2023 - DUAL ELIGIBLE - SNF OPTIONS AND ONE CARE (MEDICARE REPLACEMENT/ADV ANTAGE - HMO) Erasmo Charles [id number] Erasmo Charles Notes Date Note Type Note Provider Name and Address Organization Details Recorded Time 12/17/2023 text/html [facility] Nurse Triage Notes (Freddy Trejo): Reason For Request: Pt reporting 7 out of 8 centralized abdominal pain 11/14/23 mbr went to ED for similar pain (not as strong pain as being reported today)>was given antibiotic which did not help as much. 12/14/23 mbr presented to [facility] for similar pain and received antibiotic shot and was sent home with a medication that was 3x a day for pain and made him urinate redish color. 12/15/23 mbr worsened and went to ED> Chief Complaints: Pain Allergies: No Known Comments: Elementary School Teacher verified the member's name//address and phone number. [...] .................. .................. .................. .................. .................. .................. ............... Court Attendant Note From Daniel Herrera: Pt co lower clenching tingling abdominal pain , painful upon palpation, denies urinary pain fever sob confusion cp. baseline vitals assessed. Very hypotensive. Abdomen had pain upon palpitation. Pt wincing in pain. [facility] contacted and advised ER. Pt agreed. 911 called pt transported to [facility]. .................. .................. .................. .................. .................. .................. .................. ............... Disposition: Fulfilled YAMINI LEMUS MD [address] [place] [address],[address], [place], [phone], We 12/17/2023 18:30:41 01/07/2024 text/html HPI: HX: Paraplegia following meningitis. Recurrent UTI with urinary retention. Anticoag on coumadin. Seen at [facility] ED 01/06/24 with negative work up for pain in lower abdomen. Patient reorts nausea and pain worse after eating currently 02/24. No vomiting and BM today. Team appt scheduled for Wednesday. .................. .................. .................. .................. .................. .................. .................. ............... [facility] Nurse Triage Notes (Freddy Trejo): Comments: Reviewed HPI Jovan Hawk MD [address], [place], [address], We 01/07/2024 19:38:39 07/03/2024 text/html HPI: [place] called and member not on the line, she states member was in ER, he is home and can't sleep and has pain and wants someone to come see him. Elementary School Teacher obtained seismic interpreter ID# [id number]. Erasmo states he went to ER because [...] .................. .................. .................. .................. .................. .................. ............... Court Attendant Note From Manish Thomas: Pt reports one [...] an in person eval. Red flags reviewed. [facility] Lab Orders: culture, urine: Performed .................. .................. .................. .................. .................. .................. .................. ............... Disposition: Fulfilled Mathew Nguyen MD [address] [facility],[address], [place], [address], RITESH REAGAN 07/03/2024 18:45:33
--- OUTSIDE RECORDS SUMMARY | 2025-01-29 15:41 | XMS_ITS | Encounter Summary ---
Author Organization [employer] Address 75 [facility] 7t [place] [address] Care Team Providers Care Gas Generator Operator Name Role Phone Kaylah Foley MD Primary Care Provider + Reason for Visit * Reason Comments Med Refill Encounter Details Date Type Department Care Team ([facility] Contact Info) Description 05/08/2024 Refill [facility] MED & PEDS [address] [place], [place] [phone] Kaylah Foley MD [address] [place], [place] [phone] Anxiety Social History Tobacco Use Types Packs/Day [...] Description 04/03/2025 2:30 PM EDT Telemedicine [facility] MEDICINE [address] [place] [address] Kaylah Foley MD [address] [place] [address] documented as of this encounter Visit Diagnoses Diagnosis Anxiety Anxiety state, unspecified documented in this encounter Additional Health Concerns Assessment Noted Time PHQ-9 Depression Total Score: 3 10/07/20 23 9:51 AM EST documented as of this encounter Care Teams Gas Generator Operator Relationship Specialty Start Date End Date Kaylah Foley MD [address] [place] [address] PCP - General Family Medicine 06/02/17 documented as of this encounter
--- OUTSIDE RECORDS SUMMARY | 2025-01-29 15:41 | XMS_ITS | Encounter Summary ---
Author Organization [facility] Address [address] [place] [address] Care Team Providers Care Macadam Raker Name Role Phone Kaylah Foley MD Primary Care Provider + Reason for Visit * Reason Comments Med Refill Encounter Details Date Type Department Care Team (Late st Contact Info) Description 10/09/2022 Refill [facility] [address] [place], [place] [phone] Palma Palacio MD [address] [place] [employer], [place] [phone] Other specified anxiety disorders Social History Tobacco Use Types Packs/Day Years [...] suspected to have Coronavirus/COVID-19? No / Unsure 09/21/2022 1:26 PM EST documented as of this encounter Plan of Treatment Upcoming Encounters Date Type Department Care Team (Late st Contact Info) Description 04/03/2025 2:30 PM EDT Telemedicine [facility] [address] [place], [place] [phone] Kaylah Foley MD [address] [place] [employer], [place] [phone] documented as of this encounter Visit Diagnoses Diagnosis Other specified anxiety disorders documented in this encounter Care Teams Macadam Raker Relationship Specialty Start Date End Date Kaylah Foley MD [address] [place] [phone] PCP - General Family Medicine 06/02/17 documented as of this encounter
--- OUTSIDE RECORDS SUMMARY | 2025-01-29 15:41 | XMS_ITS | Encounter Summary ---
Author Organization [employer] Address [address] [place] [address] Care Team Providers Care Cobol Application Developer Name Role Phone Kaylah Foley MD Primary Care Provider + Reason for Visit * Reason Comments Med Refill Encounter Details Date Type Department Care Team ([facility] st Contact Info) Description 09/29/2023 Refill [facility] [address] [place], [place] [phone] Kaylah Foley MD [address] [place], [place] [phone] Flaccid paraplegia (CMS/HCC) Social History Tobacco Use [...] Info) Description 04/03/2025 2:30 PM EDT Telemedicine [facility] [address] [place] [phone] Kaylah Foley MD [address] [place] [phone] documented as of this encounter Visit Diagnoses Diagnosis Flaccid paraplegia (CMS/HCC) Paraplegia documented in this encounter Additional Health Concerns Assessment Noted Time PHQ-9 Depression Total Score: 1 08/19/20 23 9:39 AM EDT documented as of this encounter Care Teams Cobol Application Developer Relationship Specialty Start Date End Date Kaylah Foley MD [address] [place] [phone] PCP - General Family Medicine 06/02/17 documented as of this encounter
--- OUTSIDE RECORDS SUMMARY | 2025-01-29 15:41 | XMS_ITS | Clinical Summary ---
Author Organization [employer] Address [address] [facility] [address] [place] [address] Care Team Providers Care Flat Machine Cutter Name Role Phone Kaylah Foley MD Primary Care Provider + Allergies No known active allergies Medications * This document contains information received from the source organization and may not represent a complete record from that organization. Ascorbic Acid (vitamin C) 500 MG tablet Take 1,000 mg by mouth in the morning. 04/26/20 23 Active polycarbophil (Fibercon) 625 MG tablet Take 1 tablet (625 mg) by mouth 2 times daily. 60 tablet 11 07/25/20 24 025 Active fosfomycin (Monurol) 3 g packet TAKE 1 PACKET ORALLY ONCE WEEKLY FOR UTI SUPPRESSION FOR 12 WEEKS 07/06/20 24 Active Lactobacillus -Inulin (CULTURELLE DIGESTIVE DAILY PO) Take by mouth. Activ e apixaban (Eliquis) 2.5 MG tablet Take 1 tablet (2.5 mg) by mouth 2 times daily. DC warfarin 60 tablet 11 09/12/20 24 Active lidocaine 2 % gelIndication s:Postprocedu ral male urethral stricture INSERT IN URETHRA EVERY 6 TO 8 HOURS DIRECTED NEEDED FOR MILD PAIN 500 mL 11 10/31/19 25 Active zolpidem (Ambien) 5 MG tablet TAKE 1 TABLET BY MOUTH AT BEDTIME NEEDED for SLEEP 28 tablet 01/11/20 25 Active clonazePAM (KlonoPIN) 0.5 MG tabletIndicat ions:Mixed anxiety and depressive disorder Take 1 tablet (0.5 mg) by mouth if needed in the morning and at bedtime for anxiety. 56 tablet 03/26/20 25 Active polyethylene glycol, PEG, 3350 (MiraLax) 17 GM/SCOOP powder Take 17 g by mouth if needed each day (constipation) . 527 g 2 01/10/20 24 025 zolpidem (Ambien) 5 MG tablet TAKE 1 TABLET BY MOUTH AT BEDTIME NEEDED FOR SLEEP 28 tablet 12/11/19 25 025 Discontinued(Re order (will not trigger notification to Pharmacy)) clonazePAM (KlonoPIN) 0.5 MG tabletIndicat ions:Mixed anxiety and depressive disorder TAKE 1 TABLET BY MOUTH TWICE DAILY IN THE MORNING AND AT BEDTIME NEEDED FOR ANXIETY 56 tablet 12/15/19 25 025 Discontinued(Re order (will not trigger notification to Pharmacy)) Active Problems Problem Noted Date Diagnosed Date On continuous oral anticoagulation 10/24/2024 Assessment & Plan (10/24/2024 2:02 PM EST): 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 He is off Coumarin now, doing well on Eliquis. Continue Eliquis 2.5 mg BID. Slow transit constipation 08/09/2024 Assessment & Plan (10/24/2024 12:34 PM EST): Improving on Miralax. Advised to increase water intake and fibers. Re consult PRN constipation more than 3 days. Assessment & Plan (08/09/2024 12:47 PM EDT): Resolved. Advised to continue Miralax. Generalized abdominal pain 07/19/2024 Assessment & Plan (07/19/2024 10:41 AM EDT): 63 year old man with paraplegia, self caths, hx pyelonephritis adult drug resistant UTIs, treated with multiple antibiotics in the past three months (most recently fosamycin and Rocephin) Physical exam with findings of global abdominal tenderness with guarding, no rebound. Pt hypotensive with dizziness, no BM x2 days, not eating x2 days and severe abdominal pain. Differential includes infectious, obstruction, other. -Discussed and advised to seek care in the ER for evaluation of abdomen to rule out diverticulitis, SBO, or other acute intraabdominal process. -Pt will be transported to ER via ambulance. Opioid dependence with opioid-induced mood disor grayson 06/02/2024 Assessment & Plan (06/02/2024 3:51 PM EDT): Has underlying LOIDA, likely exacerbated by opiate use. He declines to continue on opiate rx. Patient will continue to cut down to off on opiates, he has 10 percocet pills left at home Patient left a bottle of percocet pills on the exam room, refused to take them with him. I took them to pharmacy and threw them in the green disposal bin, [employer] Lead Designer, [facility] witnessed the procedure. No need for addtl opiate refills for now. FU w me in 6w. Lower abdominal pain 01/10/2024 Assessment & Plan (02/02/2024 11:57 AM EDT): - recent workup in the ED was negative, symptoms were likely due to mild opoid withdrawal as oxycodone dose is being lowered Assessment & Plan (01/10/2024 2:29 PM EDT): Intermittent sx, improved since ED, no significant tenderness on exam, unclear etiology, likely multifactorial -CT abd/pelvis unremarkable DEC 2023 -send Ucx to r/o UTI -advised d/w urology re: alternative med mgmt for bladder spasm -trial miralax prn -advised rtc or go to ED if severe worsening of pain or fevers/vomiting Encounter for preventive health examination 09/18 Assessment & Plan (10/07/2023 1:17 PM EST): Discussed with patient re increase fresh fruit and vegetable intake. Counseled re moderate exercise as tolerated, up to 20min/d Patient feels safe at home. Eye exam Up to date, next one due CRC screen Agreed to new referral Labs Order lipid profile and IZ titers Vaccinations Counseled to have RSV IZ at earliest convenience at the pharmacy Dental visit Pt wears complete dentures, reconsult PRN Encounter for screening colonoscopy 10/07/2023 Assessment & Plan (10/07/2023 1:24 PM EST): To be referred Presence of intrathecal baclofen pump 08/24/2023 08/24/2023 Assessment & Plan (10/07/2023 2:20 PM EST): Battery is placed on RLQ abdomen. Pt has baclofen pump on RLQ abd, doing well, followed by pain clinic rodent exterminator prescription opiate use 08/19/2023 Assessment & Plan (06/02/2024 1:10 PM EDT): Pt was developing tolerance and decided to cut down to off oxycodone. Discontinue percocet and continue treatment as above. Will treat anxiety on a prn basis, I do not anticipate major withdrawal Sx, pt will re-consult prn. We have discussed about treatment options for opiate dependence including Suboxone Methadone which Pt is not interested at this time, and I do not think they are indicated now. Follow up tele-visit in 6 weeks. Assessment & Plan (02/02/2024 4:01 PM EDT): Doing well on Percocet 1x/d, had mild to mod withdrawal sxs, now mostly resolved. He agreed to continue same dose, he will callback prn if withdrawal sxs do not resolve completely within next few weeks. Assessment & Plan (10/07/2023 1:21 PM EST): Pt recently cut down oxycontin BID and is doing fairly well the past 2 wks He has 15 tablets today and new prescription has been sent to pharmacy. I told him to use the 15 tablet today on a prn that is this month on severe pain and will FU next month for FUEL CELL DESIGNER nurse. If not needed will continue oxycontin BID Urine tox checked today We have done [employer] education re opiate side effects including dizziness, somnolence, constipation, urinary retention, dependance, etc. Patient is aware of the importance of avoiding any activity that requires vigilance while taking these meds including driving. We have discussed re avoiding diversion of medication, including giving pills to relatives. Patient is to keep medications in a safe place and is aware that rx will not be replaced if lost or stolen. Assessment & Plan (08/19/2023 10:34 AM EDT): He's cutting down from 3 to 2 percocets per day, Counseled to cont slow taper and will FU with FUEL CELL DESIGNER nurse We have done [employer] education re opiate side effects including dizziness, somnolence, constipation, urinary retention, dependance, etc. Patient is aware of the importance of avoiding any activity that requires vigilance while taking percocets including driving. We have discussed re avoiding diversion of medication, including giving pills to relatives. Patient is to keep medications in a safe place and is aware that rx (percocets) will not be replaced if lost or stolen. Chronic bilateral low back pain without sciatica 08/19/2023 Assessment & Plan (06/27/2024 12:52 PM EDT): - significantly improving off Percocet, continue off medications - continue Tylenol up to 4 times per day PRN only - use Diclofenac gel PRN and continue stretching and strengthening exercises Assessment & Plan (06/02/2024 3:44 PM EDT): He has chronic pain from chronic disc disease + previous transverse myelitis, seems to have opoid tolerance. Pt has few percocet remaining prior to next refill, which he will start cutting down slowly to off. He can take Tylenol prn and Diclofenac gel prn. Advised to continue exercise at home. Advised to apply heat to affected area and re-consult prn. Callback prn withdrawal sxs, although he seems to have gone thru the toughest phase already. Assessment & Plan (08/19/2023 10:35 AM EDT): Due to paraplegic + lumbar spasms + DJD of lumbar spine Cutting down on percocets, see opiate contract Suprapubic pain 08/18/2023 08/18/2023 Mixed anxiety and depressive disorder 03/01/2023 Assessment & Plan (12/01/2024 1:56 PM EST): Patient did not tolerate Sertraline and is not interested in trying another SSRI at this time. Pt will continue Clonazepam 0.5 mg BID PRN anxiety + Ambien QHS Discussed the importance of taking medications as prescribed and reaching out if he noticed persistently increased anxiety symptoms. Patient has crisis number and is able to reach out for safety. FU in 3-4 months Assessment & Plan (10/24/2024 2:01 PM EST): Advised to restart Sertraline 50 mg, I todl him it's meant to control anxiety and depression in the care home, pharmaco education re effects and side effects provided. Continue Klonopin QPM only and Ambien QHS. FU with me in 5-6 weeks. He feels safe at home and is able to reach out for safety. Assessment & Plan (08/09/2024 12:49 PM EDT): Doing well on Klonopin 0.5 mg BID, will follow up in one month to see if SSRI can be added. Continue Ambien QHS. Assessment & Plan (06/27/2024 12:51 PM EDT): - seems to be doing well, seems to have more symptoms of anxiety likely related to benzos dependence - agreed to start Sertraline 50 mg and continue Clodinepine 0.5 at bedtime PRN anxiety - discontinue Tracidone due to side effects - pt is able to reach out for safety and feels safe at home - f/u with me in 4-6 weeks Assessment & Plan (06/02/2024 3:46 PM EDT): Probably exacerbated by opiate and Benzos use, pt is cutting down on both. Will start Ambien at bedtime for insomnia instead of Clonazepam and follow up in 6 weeks. Patient has rx clonazepam form last month which he started to cut down to off 1mo ago, currently 1mg at bedtime only. Advised to cut down slowly to 1/2 tab at bedtime, FU with me in 6w. Follow up anxiety Sx and start medication if indicated. Pt is able to reach out for safety. 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 Due to wheelchair bound condition, he cont be at risk of DVT. Will consult with hematology to see if there is an alternative, newer anticoagulant that has not yet been approved for care home DVT prophylaxis Vitamin D deficiency 04/04/2018 Visual impairment 04/04/2018 Assessment & Plan (06/02/2024 3:52 PM EDT): Ophthalmology evaluation UTD Fu in 6w when he's off opiates, will decide on addtl eval. 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 Continue self cath PRN and FU with Urology. Assessment & Plan (02/02/2024 3:58 PM EDT): Not recent. Continue self catheterization, use lidocaine gel prior to procedure to minimize urethral trauma, therefore infections. Assessment & Plan (10/07/2023 1:18 PM EST): Seems to be doing better with applying lidocaine prior to self cath, probably preventing urethral trauma Continue self cath daily FU w/ Assessment & Plan (08/13/2023 5:29 PM EDT): Pt with urine changes for last week as when usually occurs when having a UTI Denies fever nor chills , pt self cath today for urine sample and states took a clean sample after cleaning tip of urethra Chem 03/2023 wnl Urine dipstick today nit + , LE mod -Last seen here in 02/2023 w UTI ucx 03/07/2023 : E coli S to CTX-pt states was tx then by urologist w cefuroxime w resolution of symptoms. Will tx empirically for complicated UTI -cefuroxime 250 mg BID x 10day -UA w reflex cx -will call pt if need to change ATB -pt will call today his warfarin clinic to see if need to adjust dose of warfarin for the ATB Resolved Problems Problem Noted Date Diagnosed Date Resolved Date Anticoagulated on Coumadin 08/24/2023 0 10/24/2024 Assessment & Plan (10/07/2023 1:24 PM EST): He had recurrent DVT and PE as he's wheelchair bound Cont coumadin per coumadin clinic, goal of INR is 223 Assessment & Plan (08/24/2023 8:09 PM EST): Due to DVT many years ago. INR is usually therapeutic. Will check with hematology to see if there is an option to take him off anticoagulant. Continue coumadin per coumadin clinic Stye 08/13/2023 01/10/2024 Assessment & Plan (08/13/2023 5:24 PM EDT): Noted likely stye in lower eyelid of left eye -advised eye lubricants -warm compresses Lower urinary tract symptoms 04/04/2018 01/10/2024 Encounters Date Type Department Care Team Description 01/29/[address] [facility] [address] [place] [phone] Kaylah Foley MD Call Back Request 01/29/[address] [facility] [address] [place] [address] Kaylah Foley MD Durable Medical Equipment (L&C Form: Incontinence Supplies) 01/25/[address] [facility] [address] [place] [address] Kaylah Foley MD Appointment Request 01/10/[address] [facility] [address] [place] [address] Kaylah Foley MD Mixed anxiety and depressive disorder 01/10/[address] [facility] [address] [place] [address] Kaylah Foley MD 01/02/[address] [facility] [address] [place] [phone] Kaylah Foley MD Katie recall 12/13/[address] [facility] [address] [place] [address] Kaylah Foley MD Mixed anxiety and depressive disorder 12/11/2024 Refill [facility] [address] [place] [address] Kaylah Foley MD 12/01/2024 11:45 AM EST Telemedicine [facility] [address] [place] [phone] Kaylah Foley MD Mixed anxiety and depressive disorder (Primary Dx) 12/01/2024 Travel 11/30/[address] [facility] [address] [place] [phone] Kaylah Foley MD Chart prep 11/17/[address] [facility] [address] [place] [address] Erum Scott MD Mixed anxiety and depressive disorder 11/10/[address] [facility] [address] [place] [address] Kaylah Foley MD 10/31/[address] [address] Kaylah Foley MD Postprocedural male urethral stricture from Last 3 Months Immunizations Name Administration Dates Next Due Hep B, adult 01/16/2014,01/27/2013,07/31/2010 Influenza Injectable Quadriv alant Preservative Free IIV4 MDCK 07/24/2022,07/05/2019,08/08/2018,07/10 Influenza injectable quadriv alent IIV4 with preservative 07/15/2015 Influenza injectable quadriv alent preservative free 07/23/2023,07/07/2021,06/17/2020 Influenza, High Dose Seasona l, Preservative Free 07/10/2024 Influenza, IIV3, injectable 07/04/2014, 1 Influenza, Split (incl. kimberley fied surface antigen) 07/18/2012 Pneumococcal Conjugate PCV 20 07/10/2024 Pneumococcal Polysaccharide PPSV23 10/14/2006 RSV Bivalent 10/13/2023 TD (adult), 2 Lf tetanus tox oid, preservative free, adsorbed 10/14/2006 Tdap 08/19/2023,01/27/2013 Zoster, Recombinant 03/26/2021,09/16/2020 Social History Tobacco Use Types Packs/Day Years Used Date Smoking Tobacco: Former Cigarettes Q uit: 2004 Passive Smoke Exposure: Past Tobacco Cessation:Counseling Given: Not Answered Alcohol Use Standard Drinks/Week Comments Not Currently 0 (1 standard drink = 0.6 oz pur e alcohol) Quit 2003 Depression Answer Date Recorded Patient Health Questionnaire-9 Score 3 10/07/2023 Patient Health Questionnaire-9 Score 3 10/07/2023 Last PHQ-9: Questionnaire Data Not on file 1 12/08/2022 Housing Stability Answer Date Recorded What is your housing situation today? I have rock sing 10/24/[address] you li [...] not to disclose 2021 10:18 AM EDT Last Filed Vital Signs Vital Sign Reading Time Taken Comments Blood Pressure 91/54 10/24/2024 8:52 AM EST Pulse 64 10/24/2024 8:52 AM EST Temperature 35.9 ??C (96.7 ??F) 10/24/2024 8:52 AM ES T Respiratory Rate 20 10/24/2024 8:52 AM EST Oxygen Saturation 98% 07/19/2024 9:42 AM EDT Inhaled Oxygen Concentration - - Weight 62.1 kg (137 lb) 10/24/2024 8:52 AM EST Height 165.1 cm (5' 5 ) 10/24/2024 8:52 AM EST Body Mass Index 22.8 10/24/2024 8:52 AM EST Plan of Treatment Upcoming Encounters Date Type Department Care Team (Late st Contact Info) Description 04/03/2025 2:30 PM EDT Telemedicine [facility] [address] [place], [place] [phone] Kaylah Foley MD [address] [place] [address] Health Maintenance Due Date Last Done Comments CT Colonography 1958 Colonoscopy 1958 Colorectal Cancer Screening 1958 FIT DNA/Cologuard 1958 FIT 1958 FOBT 1958 Sigmoidoscopy 1958 Alcohol/Substance Use Screening 1970 Depression Screening 10/24/2025 10/24/2024, 10/07/20 SDOH Screening 10/24/2025 10/24/2024 Tobacco Screening 10/24/2025 10/24/2024 Lipid Panel 10/07/2028 10/07/2023, 05/18, 11/14/2020, Additional history exists DTaP/Tdap/Td Vaccines (3 - Td or Tdap) 08/19/2033 08/19/2023, 01/27/2013, 10/14/2006 Hepatitis B Vaccines Completed 01/16/2014, 01/27/2013, 07/31/2010 Zoster Vaccines Completed 03/26/2021, 09/16/2020 Hepatitis C Screening Completed 10/07/2023 RSV Patients and Patients Aged 60 years or older Completed 10/13/2023 COVID-19 Vaccine Completed 07/10/2024, 03/2023, 07/24/2022, Additional history exists Influenza Vaccine Completed 07/10/2024, , 07/24/2022, Additional history exists Pneumococcal Vaccine: 50+ Years Completed 07/10/2024, 10/14/2006 HIB Vaccines Aged Out No longer eligi ble based on patient's age to complete this topic HPV Vaccines Aged Out No longer eligi ble based on patient's age to complete this topic Hepatitis A Vaccines Aged Out No long er eligible based on patient's age to complete this topic IPV Vaccines Aged Out No longer eligi ble based on patient's age to complete this topic Meningococcal Vaccine Aged Out No valeriy stef eligible based on patient's age to complete this topic RSV under 20 months Aged Out No longe r eligible based on patient's age to complete this topic Rotavirus Vaccines Aged Out No longer eligible based on patient's age to complete this topic Procedures Procedure Name Priority Date/Time Associated Diagnosis Comments HEPATITIS PANEL, GENERAL Routine 10/07/2023 10:48 AM EST Encounter for preventive health examination Presence of intrathecal baclofen pump LIPID PANEL WITH REFLEX TO DIRECT LDL Routine 10/07/2023 10:48 AM EST Encounter for preventive health examination from Last 3 Months or Most Recently Relevant to Health Maintenance Results * (ABNORMAL) Lipid Panel with Reflex to Direct LDL (10/07/2023 10:48 AM EST) Triglycerides 75 <150 mg/dL [facility] Comment:Desirable Triglyceri de: less than 150 mg/dLBorderline High Triglyceride 150-199 mg/dLHigh Triglyceride: 200-499 mg/dLVery High Triglyceride: greater than or equal to 5OO mg/dL Cholesterol 166 <200 mg/dL [facility] Comment:Desirable Cholestero l: less than 200 mg/dLBorderline High Cholesterol: 200-239 mg/dLHigh Cholesterol: greater than 239 mg/dL LDL Cholesterol Calculated 112(H) <100 mg/dL [facility] Comment:Desirable LDL: less than 100 mg/dLNear Optimal/Above Optimal LDL: 110- 129 mg/dLBorderline High LDL: 130-159 mg/dLHigh LDL: 160-189 mg/dLVery High LDL: greater than or equal to 190 mg/dL HDL Cholesterol 39(L) >40 mg/dL [facility] Comment:Desirable HDL: great er than 40 mg/dL Note: This HDL assay may give artificially low results in patients with liver disease. Blood 10/07/2023 10:4 8 AM EST 10/07/2023 11:22 AM EST us Kaylah Foley MD LAB BLOOD ORDERABLES Fin al Result [facility] [address] [place] [phone] Hepatitis Panel, General (10/07/2023 10:48 AM EST) Hepatitis A IgM Nonreactive Nonreactive [facility] Comment:IgM antibodies to REED V not detected; does not exclude earlyacute or recovered HAV infection. ~Hepatitis B Surface Antibody REACTIVE Nonreactive [facility] Comment:REACTIVE: > 11.99 mI U/mL Hepatitis B Core Antibody Reactive Nonreactive [facility] Comment:Presumptive evidence of anti-HBc. Hepatitis C Antibody Nonreactive Nonreactive [facility] Comment:Antibodies to HCV no t detected; does not exclude early acuteHCV infection. Hepatitis B Surface Ag Negative Negative [facility] Blood 10/07/2023 10:4 8 AM EST 10/07/2023 11:22 AM EST Kaylah Foley MD LAB BLOOD ORDERABLES Fin al Result [facility] [address] [place] [phone] [phone] from Last 3 Months or Most Recently Relevant to Health Maintenance Insurance [facility] Care Teams Flat Machine Cutter Relationship Specialty Start Date End Date Kaylah Foley MD [address] [place] [address] [place] [address] PCP - General Family Medicine 06/02/17
--- OUTSIDE RECORDS SUMMARY | 2025-01-29 15:41 | XMS_ITS | Encounter Summary ---
Author Organization [employer] Address 75 [facility] 7t [place] [address] Care Team Providers Care Certified Pharmacy Tech Name Role Phone Kaylah Foley MD Primary Care Provider + Reason for Visit * Reason Onset Date Comments Med Refill 09/27/2023 F/U on Percocet usage 09/27/2023 Encounter Details Date Type Department Care Team ([facility] st Contact Info) Description 09/27/2023 Refill [facility] [address] [place], [place] [phone] Kaylah Foley MD [address] [place], [place] [phone] Flaccid paraplegia (CMS/HCC) Social History Tobacco Use [...] your housing situation today? I have rock levi 08/19/[address] you li [...] encounter Miscellaneous Notes * Telephone Encounter - Kaylah Foley MD - 09/28/2023 2:04 PM EST Patient has been cutting down on Oxycodone use, wants to taper down to off. I will hold off on new refill, please fu in 1-2w re pain rx and Oxycodone dose can be adjusted prn.We'll consider 2w rx if pain isn't optimally controlled. Goal will be to taper him off and switch to either Tylenol prn pain (if pain is proved to be fairlycontrolled with it)+ suboxone for opiate dependence if needed VS buprenorphine patch for pain control and opiate dependence. * Telephone Encounter - Arlet Quijano RN - 09/27/2023 9:28 AM EST Per PCP 08/25/23 I saw patient on 08/19, he's trying to cut down oxycodone to bid, he's doing well but hasn't cut down as much as he thinks, see pill count. Received request for Percocet refill today. TC via P/I#[id number], pt reports he's has about 27-28 pills left today. He states he feels like sometimes he's not taking the medication for pain, but more because his body was asking for it. Pt encouraged to continue to try and take only twice a day for pain and call for his refill when he has about 9 pills remaining. Pt stated he understood. Will DELI PCP. * Telephone Encounter - Ken Elmer - 09/27/2023 9:08 AM EST Tc from patient requesting a medication refill for oxyCODONE-acetaminophen (Percocet) 5-325 MG tablet documented in this encounter Plan of Treatment Upcoming Encounters Date Type Department Care Team (Late st Contact Info) Description 04/03/2025 2:30 PM EDT Telemedicine [facility] MED[facility] [address] [place] [phone] Kaylah Foley MD [address] [place] [address] documented as of this encounter Visit Diagnoses Diagnosis Flaccid paraplegia (CMS/HCC) Paraplegia documented in this encounter Additional Health Concerns Assessment Noted Time PHQ-9 Depression Total Score: 1 08/19/20 23 9:39 AM EDT documented as of this encounter Care Teams Certified Pharmacy Tech Relationship Specialty Start Date End Date Kaylah Foley MD [address] [place] [phone] PCP - General Family Medicine 06/02/17 documented as of this encounter
[2025-02-26 15:09] VITALS: BMI 22.6
--- NOTE | 2025-02-27 10:24 | P.CONAN_ITS ---
Documented by User: Madiha Gauthier NP 02/27/25 11:55 HPI - Anesthesia Eval Consult details Narrative: 64yo M for Colonoscopy Eliquis for hx DVT Paraplegia - baclofen pump in situ PMFSH Active Problems Active Problems: All Active Problems Abdominal cramping (Acute) Chronic idiopathic constipation (Acute) Wheelchair dependent (Acute) Prostate stricture (Acute) Recurrent UTI (urinary tract infection) (Acute) Current use of anticoagulant therapy (Acute) Paraplegia (Acute) Neurogenic bladder (Acute) Past Medical History Medical History (Updated 02/21/25 @ 10:24 by AMIRAH Che) Pre-op examination Paraplegia DVT (deep venous thrombosis) Colon cancer screening UTI (urinary tract infection) Hx of meningitis Renal cyst, acquired Neurogenic bladder Family History Family history of problems with anesthesia: No Surgical History Surgical History (Updated 02/26/25 @ 15:07 by Corazon Rea, ROBERT) History of cystoscopy (05/19/22) History of colonoscopy H/O abdominal surgery History of Problems with Anesthesia: No Social History Social History (Updated 02/26/25 @ 15:08 by Corazon Rea RN) Housing: Apartment Patient Tobacco Use Status: Former Tobacco user Advance Directives: No Advance Directives Information Provided: Yes Meds Allergies Allergy/AdvReac Type Severity Reaction Status Date / Time No Known Allergies Allergy Mild NOT Verified 02/21/25 10:12 APPLICABLE Home Medications ?Medication ?Instructions ?Recorded ?Confirmed ?Last Taken ?Type lanolin alcohols-mineral appl topical BID 08/18/21 08/01/24 Unknown History oil-w.petrolatum-ceresin topical cream (Minerin Creme topical) lidocaine HCl 2 % mucosal jelly ml topical TID 03/10/22 08/01/24 Unknown History naloxone 4 mg/actuation nasal spray 0 spray intranasal 11/30/22 08/01/24 Unknown History baclofen 20 mg tablet See Rx Instructions PO .COMPLEX 01/21/24 02/26/25 Unknown History diclofenac sodium 1 % topical gel topical 06/08/24 08/01/24 Unknown History zolpidem 5 mg tablet 5 mg PO BEDTIME PRN Insomnia 06/08/24 02/26/25 Unknown Hist ory PROBIOTIC PO 08/01/24 08/01/24 Unknown History bisacodyl 5 mg tablet,delayed 10 mg PO BEDTIME PRN Constipation 08/01/24 02/26/25 Unknown History release (Dulcolax (bisacodyl)) calcium polycarbophil 625 mg mg PO 08/01/24 08/01/24 Unknown History tablet (Fiber-Lax) apixaban 2.5 mg tablet (Eliquis) 2.5 mg PO BID 01/24/25 02/26/25 02/26/25 09:00 History clonazepam 0.5 mg tablet 0.5 mg PO BID 01/24/25 02/26/25 Unknown History polyethylene glycol 3350 17 17 g PO DAILY PRN Constipation 01/24/25 02/26/25 Unknown History gram/dose oral powder (Gavilax) Exam Height,Weight and Vital Signs: Height 5 ft 5 in Weight 61.689 kg Assessment and Plan Assessment Anesthesia Assessment: Chart Reviewed Final Anesthetic Review Family History of Problems with Anesthesia: No History of Problems with Anesthesia: No Documented by User: Emily Saucedo MD 02/28/25 10:39 [facility] Past Medical History Medical History (Updated 02/21/25 @ 10:24 by AMIRAH Che) Pre-op examination Paraplegia DVT (deep venous thrombosis) Colon cancer screening UTI (urinary tract infection) Hx of meningitis Renal cyst, acquired Neurogenic bladder Surgical History Surgical History (Updated 02/26/25 @ 15:07 by Corazon Rea, ROBERT) History of cystoscopy (05/19/22) History of colonoscopy H/O abdominal surgery Social History Social History (Updated 02/26/25 @ 15:08 by Corazon Rea, ROBERT) Housing: Apartment Patient Tobacco Use Status: Former Tobacco user Advance Directives: No Advance Directives Information Provided: Yes Meds Allergies Allergy/AdvReac Type Severity Reaction Status Date / Time No Known Allergies Allergy Mild NOT Verified 02/21/25 10:12 APPLICABLE Home Medications ?Medication ?Instructions ?Recorded ?Confirmed ?Last Taken ?Type lanolin alcohols-mineral appl topical BID 08/18/21 08/01/24 Unknown History oil-w.petrolatum-ceresin topical cream (Minerin Creme topical) lidocaine HCl 2 % mucosal jelly ml topical TID 03/10/22 08/01/24 Unknown History naloxone 4 mg/actuation nasal spray 0 spray intranasal 11/30/22 08/01/24 Unknown History baclofen 20 mg tablet See Rx Instructions PO .COMPLEX 01/21/24 02/26/25 Unknown History diclofenac sodium 1 % topical gel topical 06/08/24 08/01/24 Unknown History zolpidem 5 mg tablet 5 mg PO BEDTIME PRN Insomnia 06/08/24 02/26/25 Unknown History PROBIOTIC PO 08/01/24 08/01/24 Unknown History bisacodyl 5 mg tablet,delayed 10 mg PO BEDTIME PRN Constipation 08/01/24 02/26/25 Unknown History release (Dulcolax (bisacodyl)) calcium polycarbophil 625 mg mg PO 08/01/24 08/01/24 Unknown History tablet (Fiber-Lax) apixaban 2.5 mg tablet (Eliquis) 2.5 mg PO BID 01/24/25 02/26/25 02/26/25 09:00 History clonazepam 0.5 mg tablet 0.5 mg PO BID 01/24/25 02/26/25 Unknown History polyethylene glycol 3350 17 17 g PO DAILY PRN Constipation 01/24/25 02/26/25 Unknown History gram/dose oral powder (Gavilax) Exam Airway Mallampati Class: II TM Dist: >3cm Neck ROM: Full Heart: rrr Lungs: cta Assessment and Plan Assessment Anesthesia Assessment: Anesthesia Plan Discussed Final Anesthetic Review NPO: Yes ASA Class: III Final Preanesthetic Review: No Changes in Pt Med Stat, Meds/Allgs Chart Reviewed and Consent Obtained/Reviewed Patient Risk: Low Procedure Risk: Low Anesthetic Plan Anesthetic Plan: MAC: Disposition: Standard PACU
[2025-02-28 10:30] VITALS: BP 104/51; PULSE 69; RESP 16; TEMP 36.6; O2SAT 97
--- NOTE | 2025-02-28 10:30 | P.HPSUR_ITS ---
Pre-Procedural Eval Section A - 24 Hr Update-Section A only Date of Service: 02/28/25 Section B - Complete if H&P > 30 days Chief Complaint: Encounter for screening for malignant neoplasm of Relevant Family History (Specify if Yes): No Relevant Social History: None Present Medications: see Short Stay Collaborative assessment Medical History: Significant History (Paraplegia DVT (deep venous thrombosis) Colon cancer screening UTI (urinary tract infection) Hx of meningitis Renal cyst, acquired Neurogenic bladder) History of Previous Operations: Relevant previous surgery/procedure and date(s) (History of cystoscopy (05/19/22) History of colonoscopy H/O abdominal surgery) Allergies: Allergies Allergy/AdvReac Type Severity Reaction Status Date / Time No Known Allergies Allergy Mild NOT Verified 02/21/25 10:12 APPLICABLE Review of Systems Sugical H&P ROS: Negative: Constitution, Cardiovascular, Respiratory, Neurological, Psychiatric, Hem-Onc, Allergic/Immunologic, Gastrointestinal, Genitourinary, Musculoskeletal, Integumentary, Endocrine and E yes/Ears/Nose/Throat Exam Surgical H&P Exam: Normal: HEENT, Normal: Heart, Normal: Lungs, Normal: Extremities, Normal: Abdomen and Normal: Skin and Significant Findings: Neurological (paraplegia) Plan Diagnosis/Plan: Unchanged I have reviewed the history and physical and performed a pertinent physical examination on my patient. No changes have occurred unless specified. Time Spent With Patient Time: Total time managing care of this patient today ____ minutes.
[2025-02-28] MEDS: Lactated Ringers 1,000 ML 100 ML IVCONT (11:00)
--- NOTE | 2025-02-28 11:50 | P.OPN-COLO_ITS ---
Colonoscopy Operative Note Operative Note Date of Service: 02/28/25 Narrative: Operative Information Procedure Description: Colonoscopy Indication: screening Anesthesia: MAC COLONOSCOPY Instrument: Olympus variable stiffness pediatric scope 190L Colonoscopy Monitoring: Vital signs and clinical assessment, continuous EKG monitoring, Pulse oximetry, Carbon Dioxide monitoring and blood pressure monitoring were done throughout the procedure. Colon withdrawal time was 9 minutes. Procedure: The patient was placed in the left lateral decubitis position and pre-procedure medications were administered. After a digital rectal examination of the ano-rectum, the video colonoscope was inserted into the rectum and advanced through the colon to the cecum/TI. The colonoscope was slowly withdrawn in a retrograde panoramic fashion and the colon mucosa was carefully examined including a retroflexed view of the rectum. Findings and interventions are described below. Procedure Difficulty: moderate Findings: Terminal Ileum-normal Cecum: 4-5 mm sessile polyp removed with cold forceps Ascending Colon: 6-8 mm sessile polyp removed with cold snare, Transverse Colon - 5-6 mm sessile polyp removed with cold forceps Descending Colon:normal Sigmoid Colon: normal Rectum: Retroflexion with small internal hemorrhoids seen, grade I Anorectum - normal Intervention: cold snare and cold forceps Colon preparation: [place] Bowel Preparation Scale Right colon; 1-2 Transverse colon: 2 Left colon; 2 (0 = Unprepared colon segment with mucosa not seen due to solid stool that cannot be cleared. 1 = Portion of mucosa of the colon segment seen, but other areas of the colon se gment not well seen due to staining, residual stool and/or opaque liquid. 2 = Minor amount of residual staining, small fragments of stool and/or opaque liquid, but mucosa of colon segment seen well. 3 = Entire mucosa of colon segment seen well with no residual staining, small fragments of stool or opaque liquid) Impression and Post Procedure Diagnosis: colon polyps x 3 internal hemorrhoids Plan: High fiber diet leaflet Avoid straining at stool, epsom salts and sitz bath, anusol supps or cream Repeat Colonoscopy in 3 years due to polyps and few areas of fair prep on right or earlier if clinically indicated Above findings were reviewed with the patient and relevant handouts were provided if indicated.
[2025-02-28 11:52] VITALS: BP 123/59; PULSE 64; RESP 16; TEMP 36.4; O2SAT 97
[2025-02-28 12:08] VITALS: PULSE 61; RESP 16; TEMP 36.4; O2SAT 97
== END 2025-02-28 13:20 | disposition home or self-care (01) ==
PROVIDERS: PCP Internal Medicine; Visit Provider Internal Medicine Gastroenterology
PROC: 0DJD8ZZ Inspection of Lower Intestinal Tract, Via Natural or Artificial Opening Endoscopic (ICD-10-PCS; CPT 45378; principal; 2025-02-28 12:40)
DX: Z12.11 Encounter for screening for malignant neoplasm of colon (principal); D12.0 Benign neoplasm of cecum; D12.2 Benign neoplasm of ascending colon; D12.3 Benign neoplasm of transverse colon; K64.0 First degree hemorrhoids; K59.04 Chronic idiopathic constipation; R10.9 Unspecified abdominal pain; G82.20 Paraplegia, unspecified; Z99.3 Dependence on wheelchair; I82.509 Chronic embolism and thrombosis of unspecified deep veins of unspecified lower extremity; Z87.440 Personal history of urinary (tract) infections; N31.9 Neuromuscular dysfunction of bladder, unspecified; N28.1 Cyst of kidney, acquired; Z79.01 Long term (current) use of anticoagulants; Z79.899 Other long term (current) drug therapy; Z98.890 Other specified postprocedural states; Z87.891 Personal history of nicotine dependence
CPT/HCPCS: 45385; 45380; 88305; J2003; J2704

== ENCOUNTER → 2025-02-28 10:19 | Outpatient (BNV) | payer OTHER, SELFPAY | PROVIDERS: PCP Internal Medicine; Visit Provider Internal Medicine Gastroenterology | DX: Z12.11 Encounter for screening for malignant neoplasm of colon (principal); D12.0 Benign neoplasm of cecum; D12.3 Benign neoplasm of transverse colon; K64.0 First degree hemorrhoids; D12.2 Benign neoplasm of ascending colon | CPT/HCPCS: 45380; 45385 ==

== ENCOUNTER 2025-03-22 16:32 | Outpatient (REF) | payer OTHER, SELFPAY ==
[2025-03-22 18:19] LABS: Prostate Specific Antigen 0.74 ng/mL (<0.05-4.0)
--- OUTSIDE RECORDS SUMMARY | 2025-03-22 18:19 | XMS_ITS | Encounter Summary ---
Author Organization [employer] Address [address] [place] [address] Care Team Providers Care Surgical Physician Assistant Name Role Phone Kaylah Foley MD Primary Care Provider + Reason for Visit * Reason Comments Med Refill Encounter Details Date Type Department Care Team ([facility] st Contact Info) Description 05/16/2024 Refill [facility] [address] [place], [place] [phone] Erum Scott MD [address] [place], [place] [phone] Flaccid paraplegia (CMS/HCC) Social History Tobacco Use [...] 04/03/2025 2:30 PM EDT Telemedicine [facility] [address] [place] [address] Kaylah Foley MD [address] [place] [address] documented as of this encounter Visit Diagnoses Diagnosis Flaccid paraplegia (CMS/HCC) Paraplegia documented in this encounter Additional Health Concerns Assessment Noted Time PHQ-9 Depression Total Score: 3 10/07/20 23 9:51 AM EST documented as of this encounter Care Teams Surgical Physician Assistant Relationship Specialty Start Date End Date Kaylah Foley MD [address] [place] [address] PCP - General Family Medicine 06/02/17 documented as of this encounter
== END 2025-03-22 16:33 | disposition home or self-care (01) ==
LOC: HO.LAB 16:32
PROVIDERS: PCP Internal Medicine; Visit Provider Nurse Practitioner Family
DX: N42.89 Other specified disorders of prostate (principal); N39.0 Urinary tract infection, site not specified; N31.9 Neuromuscular dysfunction of bladder, unspecified; Z12.5 Encounter for screening for malignant neoplasm of prostate
CPT/HCPCS: 36415; 84153

== ENCOUNTER 2025-03-26 11:13 | Outpatient (REF) | payer OTHER, SELFPAY ==
[2025-03-26 16:44] LABS: Urine Cytology See Pathology rpt
== END 2025-03-26 11:14 | disposition home or self-care (01) ==
LOC: HO.LNP 11:13
PROVIDERS: PCP Internal Medicine; Visit Provider Nurse Practitioner Family
DX: N39.0 Urinary tract infection, site not specified (principal); N31.9 Neuromuscular dysfunction of bladder, unspecified; N42.89 Other specified disorders of prostate
CPT/HCPCS: 81003; 87086; 87088; 87186; 88112; 99212

== ENCOUNTER 2025-03-26 11:13 | Outpatient (AMB) | payer MEDICARE, SELFPAY ==
--- NOTE | 2025-03-26 11:31 | MHC.OFFVIS ---
Intake Visit Reasons: 6m follow up Intake Note: Patient presents today for follow up on: neurogenic bladder and psa lab results PSA: 0.74 Urology Medication: Methenamine, Vitamin C, and Oxybutynin Antibiotic Allergy:NONE Blood Thinner:WARFARIN Journalism Instructor Required: Yes Journalism Instructor Services: Journalism Instructor Present Journalism Instructor Name: WILFRED GREENAARON Accompanied by: Self / Same As Patient Allergies No Known Allergies Allergy (Mild, Verified 03/26/25 20:51) NOT APPLICABLE Medication List - Last Reconciled 03/26/25 by LIO Salcido-BC apixaban (Eliquis) 2.5 mg PO BID ascorbic acid (vitamin C) (Vitamin C) 1,000 mg (2 x 500 mg) PO DAILY 90 days baclofen pump orally per md lazar for pump; bisacodyl (Dulcolax (bisacodyl)) 10 mg PO BEDTIME PRN calcium polycarbophil (Fiber-Lax) mg PO clonazepam 0.5 mg PO BID diclofenac sodium 1% topical dicyclomine 20 mg PO QID PRN 30 days lanolin vtuqauw-so-d.pet-ceres (Minerin Creme topical) appl topical BID lidocaine HCl 2% mL topical TID naloxone 4 mg/actuation 0 sprays intranasal oxybutynin chloride ER 5 mg PO DAILY 90 days peg 3350-electrolytes 236-22.74-6.74 -5.86 gram (Golytely) 240 mL PO Q10M 1 day phenazopyridine (Pyridium) 200 mg PO TID PRN 5 days polyethylene glycol 3350 (Gavilax) 17 grams PO DAILY PRN [PROBIOTIC PO] sennosides (senna) 17.2 mg (2 x 8.6 mg) PO BEDTIME zolpidem 5 mg PO BEDTIME PRN HPI Comments Details: Erasmo is a very pleasant 64 year-old British speaking male patient of Dr. Foley. He has a PMH of paraplegia, DVT on Coumadin, urinary tract infections, meningitis, neurogenic bladder, and renal cysts. He presents to the office today for follow-up of his neurogenic bladder, recurrent urinary tract infections and lower urinary tract symptoms. In discussion with the patient today he reports compliance with methenamine, vitamin-C, and oxybutynin. He discusses noting cloudy urine over the last few weeks and believes he might have a urinary tract infection. In office urinalysis results were reviewed with the patient today 3+ leukocytes negative nitrates. We discussed potential for urinary tract infection will send for urine culture. He continues to CIC 6-8 times per day depending on p.o. intake. However, he discusses his ongoing issues with pain with insertion of catheters in his enquiring further treatment options of neurogenic bladder. We did discuss risks and benefits of indwelling Jensen catheter versus suprapubic tube verses continuation of CIC. All questions were answered. We discussed potential causes of recurrent urinary tract infections. Previous workup has included CT results 08/10 numerous left renal simple cyst. Left lower pole cortical thinning and scarring. Otherwise, the kidneys are normal in size, shape, and attenuation. No hydronephrosis, hydroureter, or calculi seen bilaterally. The bladder is unremarkable. He reports at times he still is able to urinate independently without catheterization. PSAs are as follows: 07/05 0.8, 09/06 0.8, 04/11 0.7 He otherwise denies hematuria, dysuria, foul smelling urine, flank pain, fever, and or chills. PREVIOUS OFFICE NOTE: Neurogenic bladder Clean intermittent catheterization 4-5 times per day - straight catheter no coude - will require self catheterization for the foreseeable future Does have occasional UTI Prior ultrasound with renal cysts on left kidney Procedure - 07/09 TUIP PSA 2020 0.8 Infection protection-vitamin C and methanamine. [facility] Medical History Pre-op examination Paraplegia DVT (deep venous thrombosis) Colon cancer screening UTI (urinary tract infection) Hx of meningitis Renal cyst, acquired Neurogenic bladder Surgical History History of cystoscopy (05/19/22) History of colonoscopy H/O abdominal surgery Social History Housing: Apartment Patient Tobacco Use Status: Former Tobacco user Review of Systems Const Reports no additional complaints Eyes Reports no additional complaints ENT Reports no additional complaints Card Reports as per HPI Resp Reports no additional complaints GI Reports no additional complaints Reports as per HPI Musc Reports as per HPI Neuro Reports as per HPI Psych Reports no additional complaints Endo Reports no additional complaints Walker/Lymph Reports as per HPI Aller/Immun Reports no additional complaints Physical Exam Const General: cooperative, healthy appearing, comfortable, no acute distress, well developed, alert and awake Orientation/consciousness: patient oriented x3 Limitations: wheelchair HEENT Head: Yes normal to inspection Eyes General: appearance normal, both eyes and all related structures Neck Neck: Yes normal visual inspection Chest Chest palpation & inspection: normal inspection of the chest Resp Effort & Inspection: normal respiratory effort Cardio Rate: regular rate GI Inspection: Yes normal to inspection General: Yes no CVA tenderness Back/Spine/Pelvis Back: no CVA tenderness Skin General skin exam: no rashes or lesions noted Neuro General: patient oriented x3 Extrem General: Yes normal to inspection Psych Appearance: grossly normal and well kempt Speech and movement: Clear speech present Attitude: cooperative Thought process: Normal thought process present Thought content: Normal thought content present Insight: Fair insight present (Psych) Judgement: Fair judgement present (Psych) Results AMB Urinalysis, Automated UA Leukoctes 500 Chey/uL Last Edit by Cathy Morel [facility] on 03/26/25 13:39 UA Nitrite [facility] on 03/26/25 13:39 UA Urobilinogen 0.2 mg/dL Last Edit by Cathy Morel [facility] on 03/26/25 13:39 UA Protein 0 mg/dL Last Edit by [facility] on 03/26/25 13:39 UA pH 6.0 Last Edit by [facility] on 03/26/25 13:39 UA Blood 10 Yuval/uL Last Edit by [facility] on 03/26/25 13:39 UA Specific [place] 1.015 Last Edit by [facility] on 03/26/25 13:39 UA Ketone Last Edit by Cathy Morel [facility] on 03/26/25 13:39 UA Bilirubin 0 mg/dL Last Edit by [facility] on 03/26/25 13:39 UA Glucose 0 mg/dL Last Edit by [facility] Kathryn [facility] on 03/26/25 13:39 Results Reviewed Results Reviewed: Laboratory Last Values Urine pH (Auto) 6.0 03/26/25 13:30 Specific [place] (Auto) 1.015 03/26/25 13:30 Urine Protein (Auto) 0 mg/dL 03/26/25 13:30 Glucose (UA)(Auto) 0 mg/dL 03/26/25 13:30 Urine Blood (Auto) 10 Yuval/uL 03/26/25 13:30 Urine Bilirubin (Auto) 0 mg/dL 03/26/25 13:30 Urine Urobilinogen (Auto) 0.2 mg/dL 03/26/25 13:30 Leukocyte Esterase (Auto) 500 Chey/uL 03/26/25 13:30 Assessment & Plan Assessment & Plan (1) UTI (urinary tract infection): Code(s): N39.0 - Urinary tract infection, site not specified Category: Medical (2) Prostate stricture: Code(s): N42.89 - Other specified disorders of prostate Category: Medical (3) Recurrent UTI (urinary tract infection): Code(s): N39.0 - Urinary tract infection, site not specified Category: Medical (4) Neurogenic bladder: Code(s): N31.9 - Neuromuscular dysfunction of bladder, unspecified Category: Medical Plan In office urinalysis results reviewed with the patient today; as noted above; will send for urine cytology as well as urine culture; will await results for potential treatment Continue methenamine, vitamin-C, and oxybutynin as prescribed. Continue to CIC indefinitely 6-8 times per day. We did discussed further treatment options of neurogenic bladder in risks and benefits of these treatment options; information provided. We discussed importance of hydration in relation to recurrent urinary tract infection as well as overall health and well-being. Recent PSA results reviewed with the patient today; as noted above. Follow-up in 3 months; or sooner with any issues, concerns, and or questions. Orders: Orders AMB Urinalysis Automated Today Z13.9 - Encounter for screening, unspecified Urine Cytology Today N39.0 - Urinary tract infection, site not specified Urine Culture Today N39.0 - Urinary tract infection, site not specified Patient Instructions: The patient had an opportunity to ask questions regarding the treatment plan. All questions were answered. Physical exam, labs, and imaging were discussed and reviewed in detail. As well as risks, benefits, and discussion of treatment choices. No major barriers to understanding were identified. The patient expressed understanding and agreement with the above treatment plan. The patient was made aware they should contact our office by phone for worsening of their current condition, the appearance of new symptoms, or with any questions or concerns. Compliance is encouraged with any medications and follow up testing that is ordered. It is a privilege to be allowed the opportunity to participate in? your urological care.? Again, if you have any questions or concerns If you have any questions or concerns please do not hesitate to contact me. The office is [phone]. This note is constructed using voice recognition software. While every effort has been made to ensure accuracy educator senior clinical errors may have been included. Yours sincerely, RINKU Salcido Coding Level of Care Code Est Pt Level 4 (75612) Complex EM visit Add On G2211 Diagnoses UTI (urinary tract infection) N39.0 Prostate stricture N42.89 Recurrent UTI (urinary tract infection) N39.0 Neurogenic bladder N31.9 Time Spent (min) 30
--- OUTSIDE RECORDS SUMMARY | 2025-03-26 12:51 | XMS_ITS | Encounter Summary ---
Author Organization [employer] Address [address] [place] [address] Care Team Providers Care Electric Range Servicer Name Role Phone Kaylah Foley MD Primary Care Provider + Reason for Visit * Reason Comments Med Refill Encounter Details Date Type Department Care Team ([facility] st Contact Info) Description 05/16/2024 Refill [facility] [address] [place], [place] [phone] Erum Scott MD [address] [place], [place] [phone] Flaccid paraplegia (CMS/HCC) Social History Tobacco Use [...] Info) Description 04/03/2025 2:30 PM EDT Telemedicine [facility] [address] [place] [address] Kaylah Foley MD [address] [place] [address] documented as of this encounter Visit Diagnoses Diagnosis Flaccid paraplegia (CMS/HCC) Paraplegia documented in this encounter Additional Health Concerns Assessment Noted Time PHQ-9 Depression Total Score: 3 10/07/20 23 9:51 AM EST documented as of this encounter Care Teams Electric Range Servicer Relationship Specialty Start Date End Date Kaylah Foley MD [address] [place] [address] PCP - General Family Medicine 06/02/17 documented as of this encounter
== END 2025-03-26 12:38 | disposition home or self-care (01) ==
LOC: HO.HUSH 11:13
PROVIDERS: PCP Internal Medicine; Visit Provider Nurse Practitioner Family
DX: N39.0 Urinary tract infection, site not specified (principal); N42.89 Other specified disorders of prostate; N31.9 Neuromuscular dysfunction of bladder, unspecified; Z13.9 Encounter for screening, unspecified
CPT/HCPCS: 99214; G2211

== ENCOUNTER 2025-04-09 17:37 | Outpatient (REF) | payer MEDICARE, SELFPAY ==
--- OUTSIDE RECORDS SUMMARY | 2025-04-09 17:52 | XMS_ITS | Data Portability ---
Author Organization [employer], [facility] Address [address] [place] [address] Care Team Providers Care Combination Welder Apprentice Name Role Phone HIM YOEL OTHER Assessment Encounter Date Assessment Date Assessment LastModified by Organization Details LastModified Time 07/03/2024 07/03/2024 As noted, we were called to see this patient regarding concerns of penile pain. Evaluation in the field was performed by my cut off saw operator pipe blanks colleague, as noted above, I provided real-time direction and supervision for this visit. The evaluation revealed same. Impression: Complex 63yo/m with hx of paraplegia and neurogenic bladder who self catheterizes who called for evaluation for continued penile pain. Patient is 63 and interviewed with net software architect, and medic in home reports patient was [...] symptoms, particularly worsening or change in symptoms. [email or web address] Not available 07/03/2024 18:36:24 Plan of Treatment Reminders Order Date Submit Date Provider Last Modified By Organization Details Last Modified Time Details Appointments None recorde d. Lab culture , urine 024 07/03/20 24 CRANFILLS GAP [facility] (Centralized Electronic Ordering - All Locations), Patient Can Go To The Location Of Their Choice, [id number] 10:06:52 Referral None recorde d. Procedures None [...] culture,comp rehensive Final report Not Available [facility] ([facility]) [address] [facility], [place], [address], 07/06/2024 12:06:12 07/03/20 24 07/06/2024 URINE CULTU RE,CO MPREH ENSIV E result 1 COMMEN T No growt h in 36 - 48 hours . Not Available [facility] ([facility]) [address], [place], [address], 07/06/2024 12:06:12 Result Notes None recorded. Medical [...] Not Available No t Available Artificial Tears ([id number] ll-glycerin) 1 %-0.2 %-0.2 % eye drops [...] Details Last Updated DateTime 4 76 /min 67321.9 6 g 95 % 95 % 97.6 [degF] 18 /min 76 mm[Hg] 48 mm[Hg] Not Available [employer] - production 4 16:34:42 Date Recorded Body temperature Respiratory rate Heart rate Oxygen saturation Oxygen saturation in Arterial blood by Pulse oximetry Systolic blood pressure Diastolic blood pressure Provider Name and Address Organization Details Last Updated DateTime 4 98.9 [degF] 18 /min 70 /min 97 % 97 % 148 mm[Hg] 84 mm[Hg] Not Available [employer] - production 4 19:32:45 Date Recorded Heart rate Body temperature Oxygen saturation Oxygen saturation in Arterial blood by Pulse oximetry Respiratory rate Systolic blood pressure Diastolic blood pressure Provider Name and Address Organization Details Last Updated DateTime 4 70 /min 97.5 [degF] 96 % 96 % 16 /min 119 mm[Hg] 72 mm[Hg] Not Available [employer] 4 18:17:22 Social History None recorded. Functional Status None recorded. Mental Status None recorded. Family History Nothing Reported. Medical History No medical history recorded. Past Encounters Encounter ID Performer Location Encounter Start Date Encounter Closed Date Diagnosis/Indication Diagnosis SNOMED-CT Code Diagnosis ICD10 Code Diagnosis Note [id number] YAMINI LEMUS MD [facility] - [facility] [address] [place] [phone] 12/17/2023 16:34:41 12/17/2023 19:30:05 Low blood pressure 53499224 I95.9 Evaluation in the field was performed by my cut off saw operator pipe blanks colleague, as noted above, I provided real-time [...] Continues to have severe abdominal pain, currently 8-. Unable toUpon arrival he was found to be hypotensiv e . BP was checked 3 times by the cut off saw operator pipe blanks and the highest value of BP 76/48. Pt afebrile but with diffuse abdominal pain, guarding.G iven hypotensio n, severe abdominal pain and the fact that pt lives by himself, he is a high risk of developing sepsis. Impression :Hypotensi on/ abdominal pain/ possible UTI Plan:Pt to be transporte d to [facility]. Expect called. Primary care, consider__ _ Dispositio n: [facility] [place] [id number] Jovan Hawk MD Main - [facility] [address] [place] [phone] 01/07/2024 19:32:43 01/08/2024 00:36:17 Chronic abdominal pain 099981472 R10.9 This 63-year-ol d male has had intermitte nt abdominal pain for over three weeks. He was recently evaluated in the ER with a negative workup. He continues to have pain not responding to Tylenol. I ordered Toradol 15 mg IM and suggested he alternate ibuprofen and Tylenol. He will follow-up with his PCP. The patient agreed with this plan. [id number] Mathew Nguyen MD Main - [facility] [address] [place] [phone] 07/03/2024 18:17:19 07/03/2024 20:33:59 Pain in penis [id number] N48.89 Health Concerns Section Related Observation LastModified by Organization Detai ls LastModified Time None Recorded Concern Status LastModified by Organization Details LastModified Time None Recorded Advance Directives Directive None Recorded Payers Insurance Date Sequence Insurance Name Policy Number Policy Joseph Covered Member ID Joseph Member ID Guarantor Name 07/03/2024 1 [facility] - DOS ON OR AFTER 2023 - DUAL ELIGIBLE - [employer] AND ONE CARE (MEDICARE REPLACEMENT/ADV ANTAGE - HMO) Erasmo Charles [id number] Erasmo Charles Notes Date Note Type Note Provider Name and Address Organization Details Recorded Time 12/17/2023 text/html [facility] Nurse Triage Notes (Freddy Trejo): Reason For Request: Pt reporting 7 out of 8 centralized abdominal pain 11/14/23 mbr went to ED for similar pain (not as strong pain as being reported today)>was given antibiotic which did not help as much. 12/14/23 mbr presented to [facility] [place] for similar pain and received antibiotic shot and was sent home with a medication that was 3x a day for pain and made him urinate redish color. 12/15/23 mbr worsened and went to ED> Chief Complaints: Pain Allergies: No Known Comments: Pharmacy District Manager verified the member's name//address and phone number. [...] .................. .................. .................. .................. .................. .................. ............... Right Of Way Manager Note From Daniel Herrera: Pt co lower clenching tingling abdominal pain , painful upon palpation, denies urinary pain fever sob confusion cp. baseline vitals assessed. Very hypotensive. Abdomen had pain upon palpitation. Pt wincing in pain. [facility] [place] and advised [place]. Pt agreed. 911 called pt transported to [facility]. .................. .................. .................. .................. .................. .................. .................. ............... Disposition: Ravi LEMUS MD [address], [place], [address], [employer] 12/17/2023 18:30:41 01/07/2024 text/html HPI: HX: Paraplegia following meningitis. Recurrent UTI with urinary retention. Anticoag on coumadin. Se[place] [facility] [place]24 with negative work up for pain in lower abdomen. Patient reorts nausea and pain worse after eating currently 02/24. No vomiting and BM today. Team appt scheduled for Wednesday. .................. .................. .................. .................. .................. .................. .................. ............... [facility] Nurse Triage Notes (Freddy Trejo): Comments: Reviewed HPI Jovan Hawk MD [address] [facility],[address], [place], [address], [employer] 01/07/2024 19:38:39 07/03/2024 text/html HPI: MS called and member not on the line, she states member was in ER, he is home and can't sleep and has pain and wants someone to come see him. Pharmacy District Manager obtained cement mason [address] streets ID# [id number]. Erasmo states he went to ER because [...] .................. .................. .................. .................. .................. .................. ............... Right Of Way Manager Note From Manish Thomas: Pt reports one week of suprapubic and urethral pain. Pt is a paraplegic and straight [...] an in person eval. Red flags reviewed. [facility] Orders: culture, urine: Performed .................. .................. .................. .................. .................. .................. .................. ............... Disposition: Fulfilled Mathew Nguyen MD [address] [place] [address],[address], [place], [address], [facility] [employer] 07/03/2024 18:45:33
[2025-04-12 11:41] LABS: Aminoclonazepam, GCMS Urine 256
[2025-04-12 11:42] LABS: Alprazolam, GCMS Urine NEGATIVE
[2025-04-12 11:44] LABS: Alphahydroxymidazolam,GCMS Ur NEGATIVE; Alphahydroxytriazolam, GCMS Ur NEGATIVE; Flurazepam Metabolite,GCMS Ur NEGATIVE; Lorazepam GCMS Urine NEGATIVE; Nordiazepam, GCMS Urine NEGATIVE; Oxazepam, GCMS Urine NEGATIVE; Temazepam, GCMS Urine NEGATIVE
== END 2025-04-09 17:38 | disposition home or self-care (01) ==
LOC: HO.HHCLNP 17:37
PROVIDERS: Visit Provider Internal Medicine
DX: Z79.899 Other long term (current) drug therapy (principal)
CPT/HCPCS: 80346

== ENCOUNTER 2025-04-09 23:37 | Emergency (ER) | payer MEDICARE, SELFPAY ==
--- NOTE | ~2025-04-09 | CT_ITS ---
CLINICAL HISTORY: abd bloating, pain, r o sbo CT abdomen and pelvis without contrast Comparison: None provided Findings: Basilar subsegmental atelectasis or pleural-parenchymal scarring is present. The gallbladder and solid organs are within normal limits. No renal stones. Probable cysts are noted in the left kidney. No bowel obstruction, pneumoperitoneum, or pneumatosis. Pelvic contents unremarkable. Normal appendix. The bones are osteopenic. Old superior endplate compression deformity of L1 noted. Pain pump noted in the right lower quadrant subcutaneous fat IMPRESSION: No acute findings. This document has been electronically signed by: David Bowles MD, PHD on 04/10/2025 02:47:22
--- NOTE | 2025-04-09 23:46 | ECG_ITS ---
Test Reason : ABDOMINAL PAIN Blood Pressure : */* mmHG Vent. Rate : 92 BPM Atrial Rate : 92 BPM P-R Int : 178 ms QRS Dur : 90 ms QT Int : 374 ms P-R-T Axes : 69 54 61 degrees QTcB Int : 462 ms Normal sinus rhythm Normal ECG When compared with ECG of 14-Nov-2023 11:48, No significant change was found Referred By: Generic ED Physician Electronically Signed By: ALAN SCHILLING
[2025-04-09 23:49] VITALS: BP 170/60; BP 171/102; PULSE 100; PULSE 80; RESP 16; TEMP 36.8; O2SAT 98; O2SAT 99; BMI 23.8
[2025-04-10 00:05] LABS: Basophils Percent Auto 0.2 % (0-2); Eosinophils Percent Auto 0.7 % (0-4); Hematocrit 42.8 % (42.0-52.0); Hemoglobin 15.2 g/dl (14.0-18.0); Imm Gran Abs Auto 0.03 X10*3/uL (0.00-0.03); Imm Gran Pct Auto 0.5 % (0.0-0.4); Lymphocytes Absolute Auto 1.6 X10*3/uL (1.2-4.9); Lymphocytes Percent Auto 26.2 % (20-40); MANUAL DIFF FLAG NO; Mean Corpuscular HGB Conc 35.5 g/dl (31.0-36.0); Mean Corpuscular Hemoglobin 28.8 pg (27.0-33.0); Mean Corpuscular Volume 81.2 fL (80.0-98.0); Mean Platelet Volume 8.7 fL (9.4-12.4); Monocytes Absolute Auto 0.6 X10*3/uL (0.1-1.2); Monocytes Percent Auto 10.8 % (2-11); Neutrophils Absolute Auto 3.6 x10*3/uL (2.0-8.3); Neutrophils Percent Auto 61.6 % (45-73); Platelet Count 170 X10*3/uL (160-400); Red Blood Count 5.27 X10*6/uL (4.60-5.80); Red Cell Distribution Width 13.1 % (11.0-16.0); White Blood Count 5.9 X10*3/uL (4.8-10.8)
[2025-04-10 00:21] LABS: Alanine Aminotransferase 25 U/L (0-40); Albumin Level 4.5 g/dL (3.5-5.0); Alkaline Phosphatase 52 U/L (39-117); Anion Gap 18 (12-20); Aspartate Amino Transferase 32 U/L (5-37); Bilirubin Direct 0.3 mg/dL (0.0-0.5); Bilirubin Total 0.9 mg/dL (0.0-1.0); Blood Urea Nitrogen 15 mg/dL (9-16); Calcium 9.4 mg/dL (8.4-10.2); Carbon Dioxide 16 mmol/L (22-29); Chloride 98 mmol/L (96-108); Creatinine Clr Calc Pharmacy 97.2; Estimated Glomerular Filt Rate > 60; Glucose Random 96 mg/dL (60-115); Lipase 15 U/L (8-78); Magnesium 1.8 mg/dL (1.6-2.6); Potassium 3.4 mmol/L (3.3-5.1); Sodium 129 mmol/L (135-145); Total Protein 6.9 g/dL (6.5-8.0)
[2025-04-10 00:28] LABS: Troponin-I High Sensitivity 3.2 ng/L (<3.5-35.0)
--- NOTE | 2025-04-10 00:33 | ED_ITS ---
HPI - Abdominal Pain General Chief Complaint: Abdominal Pain Stated Complaint: Abdominal Pain Time Seen by Provider: 04/10/25 00:10 Source: patient Mode of arrival: ambulatory Limitations: no limitations History of Present Illness ED Provider: Dr. Tia Celaya HPI narrative: patient comes to the emergency room complaining of abdominal pain, bloating. Patient states that he is paraplegic and frequently has trouble moving his bowels. Patient states that earlier today he used 3 enemas and he was able to move his bowels. But then he started building up gas again. Patient states that what is bothering him the most are the spasms in his abdomen. Patient states that he has a baclofen pump to help treat the spasms but today it is not helping much she controlled the pain. Patient denies fever or chills. Related Data Home Medications ?Medication ?Instructions ?Recorded ?Confirmed lanolin alcohols-mineral appl topical BID 08/18/21 oil-w.petrolatum-ceresin topical cream (Minerin Creme topical) lidocaine HCl 2 % mucosal jelly ml topical TID 2 08/01/24 naloxone 4 mg/actuation nasal spray 0 spray intranasal 11/30/22 08/01/24 baclofen 20 mg tablet See Rx Instructions PO .COMP BYRON 01/21/24 02/26/25 diclofenac sodium 1 % topical gel topical 06/08/24 zolpidem 5 mg tablet 5 mg PO BEDTIME PRN Insomnia 06/08/24 02/26/25 PROBIOTIC PO 08/01/24 08/01/24 bisacodyl 5 mg tablet,delayed 10 mg PO BEDTIME PRN Con stipation 08/01/24 02/26/25 release (Dulcolax (bisacodyl)) calcium polycarbophil 625 mg mg PO 08/01/24 08/01/24 tablet (Fiber-Lax) apixaban 2.5 mg tablet (Eliquis) 2.5 mg PO BID 5 02/26/25 clonazepam 0.5 mg tablet 0.5 mg PO BID 01/24/2502/26 polyethylene glycol 3350 17 17 g PO DAILY PRN Constipa tion 01/24/25 02/26/25 gram/dose oral powder (Gavilax) Previous Rx's ?Medication ?Instructions ?Recorded ascorbic acid (vitamin C) 500 mg 1,000 mg (2 x 500 mg) PO DAILY 90 01/25/24 tablet (Vitamin C) days #180 tabs phenazopyridine 200 mg tablet 200 mg PO TID PRN pain 5 days #15 07/05/24 (Pyridium) tabs oxybutynin chloride 5 mg 5 mg PO DAILY 90 days #90 ta bs 09/25/24 tablet,extended release 24 hr dicyclomine 20 mg tablet 20 mg PO QID PRN abdominal p ain 30 01/24/25 days #120 tabs sennosides 8.6 mg tablet (senna) 17.2 mg (2 x 8.6 mg) PO BEDTIME 01/24/25 constipation #60 tabs peg 3350-electrolytes 236 240 ml PO Q10M 1 day #4,000 mL 02/21/25 gram-22.74 gram-6.74 gram-5.86 gram solution (Golytely) sulfamethoxazole 800 1 tab PO BID 7 days #14 tabs 03/28/25 mg-trimethoprim 160 mg tablet (Bactrim DS) lorazepam 1 mg tablet (Ativan) 1 mg PO TID PRN spasms #9 tabs 04/10/25 Allergies Allergy/AdvReac Type Severity Reaction Status Date / Time No Known Allergies Allergy Mild NOT Verified 04/09/25 23:53 APPLICABLE Review of Systems Review of Systems Constitutional : No Weight loss, No Fever, No Chills, No Night Sweats, No Fatigue, No Malaise ENT/Mouth : No Hearing loss, No Ear Pain, No Nasal Congestion, No Sinus Pain, No Hoarseness, No sore throat, No Rhinorrhea, No Swallowing Difficulty Eyes: No Eye Pain, No Swelling, No Redness, No Foreign Body, No Discharge, No Vision Changes Cardiovascular : No Chest Pain, No SOB, No Dyspnea on Exertion, No Orthopnea, No Edema, No Palpitations Respiratory : No Cough, No Sputum, No Wheezing, No Smoke Exposure, No Dyspnea Gastrointestinal : No Nausea, No Vomiting , complaining of chronic constipation, abdominal distention and obstipation Genitourinary : no irregular bleeding, No Dysuria, No Urinary Frequency, No Hematuria, No Urinary Incontinence, No Urgency, No Flank Pain, No Urinary Flow Changes, No Hesitancy Musculoskeletal : No joint pain, No Myalgias, No Joint Swelling Skin : No Skin Lesions, No rash Neuro : No Weakness, No Numbness, No Paresthesias, No Loss of Consciousness, No Dizziness, No Headache Psych : No Anxiety/Panic, No Depression, No SI/HI/AH/VH, No Social Issues, Heme/Lymph: No Bruising, No Bleeding,No Lymphadenopathy Endocrine : No Polyuria, No Polydipsia, No Temperature Intolerance PMFSH Past Medical History Medical History Pre-op examination Paraplegia DVT (deep venous thrombosis) Colon cancer screening UTI (urinary tract infection) Hx of meningitis Renal cyst, acquired Neurogenic bladder Surgical History History of cystoscopy (05/19/22) History of colonoscopy H/O abdominal surgery Social History Social History Housing: Apartment Patient Tobacco Use Status: Former Tobacco user Advance Directives: No Advance Directives Information Provided: Yes Physical Exam ED Vital Signs: Vital Signs - 24 hr 04/09/25 23:49 04/10/25 05:44 Temperature 98.3 F Pulse Rate 100 64 Respiratory Rate 16 14 Blood Pressure 171/102 H 102/53 L Pulse Oximetry 98 99 Oxygen Delivery Method Room Air Room Air BMI result Body Mass Index 23.8 Const Other: Appearance: Alert. Oriented X3. seems uncomfortable Eyes: Pupils equal, round and reactive to light. ENT: Pharynx normal. Neck: Normal inspection. Neck supple. No lymph nodes noted. No crepitus CVS: Normal heart rate and rhythm. Pulses normal. Normal S1 and S2 Respiratory: No respiratory distress. Breath sounds normal. No Wheezing. No rales Abdomen: soft, mildly distended, diffuse pain to palpation in all quadrants. Patient has a palpable pump in the right lower quadrant Skin: Skin warm and dry. Normal skin color. Normal skin turgor. Extremities: No lower extremity edema. No Lacerations. No Rash Neuro: CN 2 through 12 grossly intact, noted that patient has significant tone clonus movements, per patient at baseline Psych: calm, anxious Course Course Course Narrative: patient comes to the emergency room complaining of abdominal spasms and constipation. Patient states that his baclofen pump is not helping much they. Patient reports having a good bowel movement today. However, patient having recurrent constipation, states that he is unable to pass gas. All of patient's labs and imaging pending patient was given a dose of diazepam Medical Decision Making Medical Decision Making [facility] Narrative: my interpretation of labs: No significant abnormality in patient's hematology . Patient's sodium is 129. No other significant abnormality in patient's chemistry. CT scan of the abdomen does not show any acute abnormalities. patient was given a L of IV fluids, sodium improved to 133 which is patient's baseline. Overall, the abdominal cramps significantly improved. Patient feels well to go home. Differential Diagnosis Differential Diagnoses: The differential diagnosis associated with the presentation includes ( Hypokalemia, hypomagnesemia, SBO, chronic constipation) Admission/Observation Consideration of admission/observation: Escalation of care including admission/observation considered Lab Data [facility] Lab Attestation statement: I reviewed the patient's lab results. 04/09/25 23:58 04/10/25 05:41 Labs: Lab Results 04/09/25 04/10/25 Range/Units 23:58 05:41 WBC 5.9 (4.8-10.8) X10*3/uL RBC 5.27 (4.60-5.80) X10*6/uL Hgb 15.2 (14.0-18.0) g/dl Hct 42.8 (42.0-52.0) % MCV 81.2 (80.0-98.0) fL MCH 28.8 (27.0-33.0) pg MCHC 35.5 (31.0-36.0) g/dl RDW 13.1 (11.0-16.0) % Plt Count 170 (160-400) X10*3/uL MPV 8.7 L (9.4-12.4) fL Immature Gran % (Auto) 0.5 H (0.0-0.4) % Neut % (Auto) 61.6 (45-73) % Lymph % (Auto) 26.2 (20-40) % [place] % (Auto) 10.8 (2-11) % Eos % (Auto) 0.7 (0-4) % Baso % (Auto) 0.2 (0-2) % Lymph # (Auto) 1.6 (1.2-4.9) X10*3/uL [place] # (Auto) 0.6 (0.1-1.2) X10*3/uL Eos # (Auto) 0.0 (0.0-0.4) X10*3/uL Baso # (Auto) 0.0 (0.0-0.2) X10*3/uL Abs Immat Gran (auto) 0.03 (0.00-0.03) X10*3/uL Absolute Neuts (auto) 3.6 (2.0-8.3) x10*3/uL Absolute Nucleated RBC 0.000 (0.0-0.012) X10*3/uL Nucleated RBC % (auto) 0.0 (0.0-0.2) /100WBC Sodium 129 L 133 L (135-145) mmol/L Potassium 3.4 3.9 (3.3-5.1) mmol/L Chloride 98 102 (96-108) mmol/L Carbon Dioxide 16 L 23 (22-29) mmol/L Anion Gap 18 12 (12-20) BUN 15 12 (9-16) mg/dL Creatinine 0.65 0.59 (0.5-1.4) mg/dL Estim Creat Clear Calc 97.2 107.1 Estimated GFR > 60 > 60 Random Glucose 96 93 (60-115) mg/dL Calcium 9.4 8.6 D (8.4-10.2) mg/dL Magnesium 1.8 (1.6-2.6) mg/dL Total Bilirubin 0.9 (0.0-1.0) mg/dL Direct Bilirubin 0.3 (0.0-0.5) mg/dL AST 32 (5-37) U/L ALT 25 (0-40) U/L Alkaline Phosphatase 52 (39-117) U/L Troponin I High Sens 3.2 (<3.5-35.0) ng/L Total Protein 6.9 (6.5-8.0) g/dL Albumin 4.5 (3.5-5.0) g/dL Lipase 15 (8-78) U/L Independent Interpretation I performed an independent interpretation of an: CT Scan Radiology Impression Discussion of test interpretation with radiology: I have reviewed the radiologist's reading. Radiologist Impression: Basilar subsegmental atelectasis or pleural-parenchymal scarring is present. The gallbladder and solid organs are within normal limits. No renal stones. Probable cysts are noted in the left kidney. No bowel obstruction, pneumoperitoneum, or pneumatosis. Pelvic contents unremarkable. Normal appendix. The bones are osteopenic. Old superior endplate compression deformity of L1 noted. Pain pump noted in the right lower quadrant subcutaneous fat IMPRESSION: No acute findings. Medications Administered Discontinued Medications Generic Name Dose Route Start Last Admin Trade Name Freq PRN Reason Stop Dose Admin Diazepam 2.5 mg 04/10/25 00:22 04/10/25 00:50 Diazepam 10 Mg/2 Ml Cartridge IM 04/10/25 00:23 2.5 mg STAT STA Administration Sodium Chloride 1,000 mls @ 999 mls/hr 04/10/25 03:06 04/10/25 05:39 Ns IVCONT 04/10/25 04:06 Infused .Q1H1M ONE Infusion Critical Care Time Critical Care Time Critical Care Time: Yes Total Critical Care Time: 45 Attestation: I have personally provided critical care time. Time includes review of lab data, radiology results, discussion with consultants, and monitoring for potential decompensation. Intervention performed as documented. Discharge Plan Discharge Clinical Impression: Muscle spasm, Acute hyponatremia Patient Disposition: Home, Self-Care Instructions: Hyponatremia (ED), Muscle Spasm (ED) Additional Instructions: Please follow-up with your primary care physician tomorrow. If you have any worsening or new symptoms, please return to the emergency room or call 911 Prescriptions: New lorazepam [Ativan] 1 mg tablet 1 mg PO TID PRN (Reason: spasms) Qty: 9 0RF No Action phenazopyridine [Pyridium] 200 mg tablet 200 mg PO TID PRN (Reason: pain) 5 Days Qty: 15 0RF sulfamethoxazole-trimethoprim [Bactrim DS] 800-160 mg tablet 1 tab PO BID 7 Days Qty: 14 0RF baclofen 20 mg tablet See Rx Instructions PO .COMPLEX Rx Instructions: pump orally per md lazar for pump; Minerin Creme Cream topical BID lidocaine HCl 2 % jelly topical TID naloxone 4 mg/actuation spray,non-aerosol 0 spray intranasal ascorbic acid (vitamin C) [Vitamin C] 500 mg tablet 1,000 mg PO DAILY 90 Days Qty: 180 1RF calcium polycarbophil [Fiber-Lax] 625 mg tablet PO bisacodyl [Dulcolax (bisacodyl)] 5 mg tablet,delayed release (DR/EC) 10 mg PO BEDTIME PRN (Reason: Constipation) PROBIOTIC PO Patient Comments: PT STATES PROBIOTIC WITH SMALL AMT OF VIT K Eliquis 2.5 mg tablet 2.5 mg PO BID sennosides [senna] 8.6 mg tablet 17.2 mg PO BEDTIME Qty: 60 6RF polyethylene glycol 3350 [Gavilax] 17 gram/dose powder 17 g PO DAILY PRN (Reason: Constipation) dicyclomine 20 mg tablet 20 mg PO QID PRN (Reason: abdominal pain) 30 Days Qty: 120 6RF peg 3350-electrolytes [Golytely] 236-22.74-6.74 -5.86 gram recon soln 240 ml PO Q10M 1 Days Qty: 4000 0RF Rx Instructions: until fecal effluent is clear; do not exceed a total volume of 2,000 mL zolpidem 5 mg tablet 5 mg PO BEDTIME PRN (Reason: Insomnia) diclofenac sodium 1 % gel topical oxybutynin chloride 5 mg tablet extended release 24hr 5 mg PO DAILY 90 Days Qty: 90 1RF clonazepam 0.5 mg tablet 0.5 mg PO BID Patient Comments: only takes at bedtime Print Language: Malay
[2025-04-10] MEDS: diazePAM 10 MG/2 ML CARTRIDGE 2.5 MG IM (00:50)
[2025-04-10] MEDS: 0.9 % Sodium Chloride 1,000 ML 999 ML IVCONT (03:20)
--- NOTE | 2025-04-10 03:24 | PC.NURSE ---
20 G in R ac, pt tolerated well. Pt medicated per MAR.
[2025-04-10 05:44] VITALS: BP 102/53; PULSE 64; RESP 14; O2SAT 99
[2025-04-10 05:59] LABS: Anion Gap 12 (12-20); Blood Urea Nitrogen 12 mg/dL (9-16); Calcium 8.6 mg/dL (8.4-10.2); Carbon Dioxide 23 mmol/L (22-29); Chloride 102 mmol/L (96-108); Creatinine Clr Calc Pharmacy 107.1; Estimated Glomerular Filt Rate > 60; Glucose Random 93 mg/dL (60-115); Potassium 3.9 mmol/L (3.3-5.1); Sodium 133 mmol/L (135-145)
[2025-04-10] MEDS: LORazepam 1 MG TABLET 2 MG PO (06:54)
[2025-04-10 08:00] VITALS: BP 121/61; PULSE 72; RESP 15; TEMP 36.4; O2SAT 96
== END 2025-04-10 08:04 | disposition home or self-care (01) ==
PROVIDERS: Emergency Provider Emergency Medicine
DX: M62.838 Other muscle spasm (principal); E87.1 Hypo-osmolality and hyponatremia; R10.9 Unspecified abdominal pain; G82.20 Paraplegia, unspecified; Z86.718 Personal history of other venous thrombosis and embolism; Z87.891 Personal history of nicotine dependence; Z79.01 Long term (current) use of anticoagulants; Z79.899 Other long term (current) drug therapy
CPT/HCPCS: 36415; 74176; 80048; 80053; 82248; 83690; 83735; 84484; 85025; 93005; 96360; 96361; 96372; 99284; 99285; J3360

== ENCOUNTER → 2025-04-09 23:46 | Outpatient (BNV) | payer MEDICARE, SELFPAY | PROVIDERS: Emergency Provider Emergency Medicine; Visit Provider Internal Medicine | DX: R10.9 Unspecified abdominal pain (principal) | CPT/HCPCS: 93010 ==

== ENCOUNTER → 2025-04-10 00:31 | Outpatient (BNV) | payer MEDICARE, SELFPAY | PROVIDERS: Emergency Provider Emergency Medicine; Visit Provider General Practice | DX: J98.11 Atelectasis (principal) | CPT/HCPCS: 74176 ==

== ENCOUNTER 2025-04-11 10:09 | Outpatient (AMB) | payer MEDICARE, SELFPAY ==
--- NOTE | 2025-04-11 10:25 | MHC.OFFVIS ---
Vital Signs 04/11/25 10:39 Height 5 ft 5 in Weight 143 lb BMI 23.8 BP 87/52 L Blood Pressure Location Lt brachial Position Sitting Pulse 76 Pulse Oximetry (%) 96 Oxygen Delivery Method Room Air Intake Visit Reasons: Severe CIC and Post Op Intake Note: Patient follow up for severe CIC and Colonoscopy results. Patient cc: abdominal pain with several constipation with hard stool and can not do any BM for couples of days. Hyperbaric Welder Diver Required: Yes Accompanied by: Self / Same As Patient Allergies No Known Allergies Allergy (Mild, Verified 04/11/25 10:37) NOT APPLICABLE HPI HPI Severe CIC and Post Op: Details: Assessment & Plan (1) Chronic idiopathic constipation: Code(s): K59.04 - Chronic idiopathic constipation Category: Medical (2) Abdominal cramping: Code(s): R10.9 - Unspecified abdominal pain Category: Medical (3) Wheelchair dependent: Code(s): Z99.3 - Dependence on wheelchair Category: Medical Plan Niuean # Edouard Grant He is using the bentyl prn, which is okay. However, he is NOT taking senna on a regular basis and c/o it does not give me the sensation to go. I again educate him that as a spinal cord injury patient he does not get the normal signals to stimulate the bowels, so we need to try to do this chemically. With this in mind, I ask him to take 2 senna EVERY NIGHT, to try to simulate a normal motility. He is using tap water enemas and suppositories to stimulate this, which is ok but he still has to struggle and it hurts him to push. This was a very long appointment because it took quite a bit of Education to convince the patient about the plan of action, and he had many many questions about the colonoscopy procedure and the prep. We had gone over a 4 but given the fact that he has a low Education level and low literacy I think it is very important to reinforce this teaching again verbally. I did give him printed literature in Niuean and he says he does read at least at a rudimentary level but is not high school graduate. He was advised that he needs to hold his Eliquis 3 days prior to the procedure. ROV after02/28 colonoscopy Medications: Refilled peg 3350-electrolytes 236-22.74-6.74 -5.86 gram (Golytely) until fecal effluent is clear; do not exceed a total volume of 2,000 mL 240 mL PO Q10M 4,000 mL 0RF 1 day Z12.11 - Encounter for screening for malignant neoplasm of colon Colonoscopy 02/28/25 Findings: Terminal Ileum-normal Cecum: 4-5 mm sessile polyp removed with cold forceps Ascending Colon: 6-8 mm sessile polyp removed with cold snare, Transverse Colon - 5-6 mm sessile polyp removed with cold forceps Descending Colon:normal Sigmoid Colon: normal Rectum: Retroflexion with small internal hemorrhoids seen, grade I Anorectum - normal Intervention: cold snare and cold forceps Impression and Post Procedure Diagnosis: colon polyps x 3 internal hemorrhoids Plan: High fiber diet leaflet Avoid straining at stool, epsom salts and sitz bath, anusol supps or cream Repeat Colonoscopy in 3 years due to polyps and few areas of fair prep on right or earlier if clinically indicated Biopsy Received: 02/28/25 Diagnosis A. Colon, ascending, polyp: Tubular adenoma; negative for high-grade dysplasia and carcinoma. B. Colon, cecal polyp: Tubular adenoma; negative for high-grade dysplasia and carcinoma. C. Colon, transverse, polyp: Tubular adenoma, completely excised; negative for high-grade dysplasia and carcinoma. TODAY'S VISIT Niuean #[id number] The procedure DC repeated in 3 years due to 3 TA is. The procedure was well tolerated. The results were explained and the patient is agreeable to the follow-up interval as stated. The bowel pattern has returned to normal. Education was provided to tell any 1st degree relatives about their findings to be sure that they are screened by age 45. Educated that they will be put on a recall list when it is time for their repeat scope but should they move out of state or away from the hospital they will need to remember along with their primary to repeat the procedure in a timely fashion to avoid any adverse complications. He presented to the ER this week for severe stomach pain and CIC. he was c/o stomach cramping, and they kept saying that his baclofen was not helping. But this only aids skeletal striated muscles and not smooth muscles. He only moves his bowels every 3 days and the BM's are very hard. He has to strain to pass any stools. He is a paraplegic, so this complicates the problem. So far, he has falled fiber, miralax, senna, bisacodyl, colace and we will progress to Linzess 145mcg and titrate. I want him to continue the senna to stimulate movement/motility. He continues the bentyl which is helping with bowel cramping. [facility] Medical History (Updated 04/11/25 @ 10:28 by AMIRAH Che) Pre-op examination Paraplegia DVT (deep venous thrombosis) Colon cancer screening UTI (urinary tract infection) Hx of meningitis Renal cyst, acquired Neurogenic bladder Surgical History History of cystoscopy (05/19/22) History of colonoscopy H/O abdominal surgery Social History Housing: Apartment Patient Tobacco Use Status: Former Tobacco user Review of Systems Const Denies fatigue, Denies fever(s), Denies night sweats, Denies poor appetite and Denies weight loss ENT Reports Normal hearing present, Denies dental pain, Denies dysphagia, Denies hearing loss, Denies mouth pain, Denies odynophagia, Denies throat swelling, Denies tongue swelling and Reports other (Dentition adequate) Card Reports no additional complaints Resp Reports no additional complaints GI Details: Denies abdominal pain, Denies melena, Reports bloating, Denies hematochezia, Reports constipation, Reports GI cramping, Denies dysphagia, Denies excessive flatus, Denies early satiety, Denies heartburn, Denies diarrhea, Denies nausea, Denies odynophagia, Denies vomiting and Denies hematemesis Musc Reports muscle weakness Skin/Breast Denies pruritus, Denies lesions, Denies rash and Denies jaundice Neuro Reports Normal hearing present and Denies Abnormal speech present Endo Denies fatigue Aller/Immun Denies throat swelling and Denies tongue swelling Physical Exam Vital Signs: Last Vital Signs Pulse 76 04/11/25 10:39 BP 87/52 L 04/11/25 10:39 Pulse Ox 96 04/11/25 10:39 Oxygen Delivery Method Room Air 04/11/25 10:39 BMI result Body Mass Index 23.8 Const General: cooperative, no acute distress, well developed and well groomed Nutritional Appearance: average body habitus and well nourished Orientation/consciousness: oriented to person, oriented to place and oriented to time Limitations: language barrier and wheelchair HEENT Head: Yes normocephalic and Yes atraumatic Eyes General: appearance normal, both eyes and all related structures Pupils: Equal, round and reactive pupils present Neck Neck: Yes normal visual inspection and Yes no lymphadenopathy Thyroid: Thyroid normal Resp Effort & Inspection: normal respiratory effort and able to speak in complete sentences Auscultation: clear to auscultation bilaterally Cardio Rate: regular rate Rhythm: regular rhythm Heart sounds: Normal, physiologic split S2 sound present Peripheral pulses: radial pulses present and posterior tibial pulses present GI Inspection: No distended and No Abdominal panniculus present Palpation (GI): Soft to palpation, nontender, no guarding, not rigid and No hepatosplenomegaly present Percussion: Yes normal to percussion Auscultation: normal bowel sounds Rectal Exam - Male: Yes deferred Skin General skin exam: no rashes or lesions noted, turgor normal, skin not dry, no jaundice, No spider nevi and no striae Rashes: no rashes Nails: normal Neuro Other: Paraplegia wheelchair-bound General: oriented to person, oriented to place and oriented to time Cranial nerves: Yes Equal, round and reactive pupils present and Yes Normal hearing present Speech: No Abnormal speech present Extrem General: No clubbing, No cyanosis and No edema Psych Appearance: grossly normal and well kempt Mental Status: mental status grossly normal Speech and movement: Normal speech and movement present Affect: normal affect Attitude: cooperative Thought process: Normal thought process present and not confabulating Thought content: Normal thought content present Insight: Fair insight present (Psych) Judgement: Fair judgement present (Psych) Assessment & Plan Assessment & Plan (1) Tubular adenoma of colon: Comment: 03/2025 scope= 3 TA is repeat in 3 years Code(s): D12.6 - Benign neoplasm of colon, unspecified Category: Medical Plan Niuean #[id number] The procedure needs to be repeated in 3 years due to 3 TA is. The procedure was well tolerated. The results were explained and the patient is agreeable to the follow-up interval as stated. The bowel pattern has returned to normal. Education was provided to tell any 1st degree relatives about their findings to be sure that they are screened by age 45. Educated that they will be put on a recall list when it is time for their repeat scope but should they move out of state or away from the hospital they will need to remember along with their primary to repeat the procedure in a timely fashion to avoid any adverse complications. He presented to the ER this week for severe stomach pain and CIC. he was c/o stomach cramping, and they kept saying that his baclofen was not helping. But this only aids skeletal striated muscles and not smooth muscles. He only moves his bowels every 3 days and the BM's are very hard. He has to strain to pass any stools. He is a paraplegic, so this complicates the problem. So far, he has falled fiber, miralax, senna, bisacodyl, colace and we will progress to Linzess 145mcg and titrate. I want him to continue the senna to stimulate movement/motility. He continues the bentyl which is helping with bowel cramping. Medications: New linaclotide (Linzess) Take first thing in the morning with a full glass of water. 145 mcg PO QAM 30 caps 3RF K58.1 - Irritable bowel syndrome with constipation Refilled dicyclomine 20 mg PO QID PRN 120 tabs 6RF abdominal pain 30 days R10.9 - Unspecified abdominal pain Discontinued peg 3350-electrolytes 236-22.74-6.74 -5.86 gram (Golytely) until fecal effluent is clear; do not exceed a total volume of 2,000 mL Discontinued Reason: Patient Completed Course 240 mL PO Q10M 1 day 4,000 mL 0RF Z12.11 - Encounter for screening for malignant neoplasm of colon On Hold polyethylene glycol 3350 (Gavilax) Hold Comment: Doctor's Order 17 grams PO DAILY 238 grams 0RF Patient Instructions: Charles Moscoso,Erasmo 1. Empiece a yuliya el nuevo medicamento llamado Linzess y t?russo a primera hora de la ma?jose ramon con un vaso lleno de agua. Est? en la dosis media; si no funciona, contin?e tomando Linzess y a?ada Gavalax. Si tiene diarrea, suspenda saima el sen y omita un d?a con Linzess. Aumentar? o disminuir? la dosis seg?n delgado evoluci?n. 2. Contin?e tomando 2 sen antes de acostarse. 3. Suspenda el Gavilax. Contin?a con tu fibra y probi?ticos Coding Level of Care Code Est Pt Level 4 (03190) Diagnoses Tubular adenoma of colon D12.6 Time Spent (min) 37
[2025-04-11 10:39] VITALS: BP 87/52; PULSE 76; O2SAT 96; BMI 23.8
--- OUTSIDE RECORDS SUMMARY | 2025-04-11 11:44 | XMS_ITS | Data Portability ---
Author Organization [employer], [facility] Address [address] [place] [address] Care Team Providers Care Cap Jewel Plate Assembler Name Role Phone HIM YOEL OTHER Assessment Encounter Date Assessment Date Assessment LastModified by Organization Details LastModified Time 07/03/2024 07/03/2024 As noted, we were called to see this patient regarding concerns of penile pain. Evaluation in the field was performed by my dramatic agent colleague, as noted above, I provided real-time direction and supervision for this visit. The evaluation revealed same. Impression: Complex 63yo/m with hx of paraplegia and neurogenic bladder who self catheterizes who called for evaluation for continued penile pain. Patient is 63 and interviewed with editor publications, and medic in home reports patient was [...] symptoms, particularly worsening or change in symptoms. [email or web address] Not available 07/03/2024 18:36:24 Plan of Treatment Reminders Order Date Submit Date Provider Last Modified By Organization Details Last Modified Time Details Appointments None recorde d. Lab culture , urine 024 07/03/20 24 [place] [facility] (Centralized Electronic Ordering - All Locations), Patient Can Go To The Location Of Their Choice, [address] 10:06:52 Referral None recorde d. Procedures None [...] culture,comp rehensive Final report Not Available [facility] ([facility]) [address], [place], [address], 07/06/2024 12:06:12 07/03/20 24 07/06/2024 URINE CULTU RE,CO MPREH ENSIV E result 1 COMMEN T No growt h in 36 - 48 hours . Not Available [facility] ([facility]) [address], [place], [address], 07/06/2024 12:06:12 Result Notes None recorded. Medical [...] Not Available No t Available Artificial Tears (jd803-jihnsut ll-glycerin) 1 %-0.2 %-0.2 % eye drops [...] Details Last Updated DateTime 4 76 /min 89763.9 6 g 95 % 95 % 97.6 [degF] 18 /min 76 mm[Hg] 48 mm[Hg] Not Available [employer] - production 4 16:34:42 Date Recorded Body temperature Respiratory rate Heart rate Oxygen saturation Oxygen saturation in Arterial blood by Pulse oximetry Systolic blood pressure Diastolic blood pressure Provider Name and Address Organization Details Last Updated DateTime 4 98.9 [degF] 18 /min 70 /min 97 % 97 % 148 mm[Hg] 84 mm[Hg] Not Available [employer] 4 19:32:45 Date Recorded Heart rate Body temperature Oxygen saturation Oxygen saturation in Arterial blood by Pulse oximetry Respiratory rate Systolic blood pressure Diastolic blood pressure Provider Name and Address Organization Details Last Updated DateTime 4 70 /min 97.5 [degF] 96 % 96 % 16 /min 119 mm[Hg] 72 mm[Hg] Not Available [employer] 4 18:17:22 Social History None recorded. Functional Status None recorded. Mental Status None recorded. Family History Nothing Reported. Medical History No medical history recorded. Past Encounters Encounter ID Performer Location Encounter Start Date Encounter Closed Date Diagnosis/Indication Diagnosis SNOMED-CT Code Diagnosis ICD10 Code Diagnosis Note [id number] YAMINI LEMUS MD [facility] [address] [place] [phone] 12/17/2023 16:34:41 12/17/2023 19:30:05 Low blood pressure 07079630 I95.9 Evaluation in the field was performed by my dramatic agent colleague, as noted above, I provided real-time [...] BP was checked 3 times by the dramatic agent and the highest value of BP 76/48. Pt afebrile but with diffuse abdominal pain, guarding.G iven hypotensio n, severe abdominal pain and the fact that pt lives by himself, he is a high risk of developing sepsis. Impression :Hypotensi on/ abdominal pain/ possible UTI Plan:Pt to be transporte d to [facility]. Expect called. Primary care, consider__ _ Dispositio n: [facility] ED [id number] Jovan Hawk MD [facility] - [facility] [address] [place] [phone] 01/07/2024 19:32:43 01/08/2024 00:36:17 Chronic abdominal pain [id number] R10.9 This 63-year-ol d male has had intermitte nt abdominal pain for over three weeks. He was recently evaluated in the ER with a negative workup. He continues to have pain not responding to Tylenol. I ordered Toradol 15 mg IM and suggested he alternate ibuprofen and Tylenol. He will follow-up with his PCP. The patient agreed with this plan. [id number] Mathew Nguyen MD [facility] - [facility] [address] [place] [phone] 07/03/2024 18:17:19 07/03/2024 20:33:59 Pain in penis [id number] N48.89 Health Concerns Section Related Observation LastModified by Organization Detai ls LastModified Time None Recorded Concern Status LastModified by Organization Details LastModified Time None Recorded Advance Directives Directive None Recorded Payers Insurance Date Sequence Insurance Name Policy Number Policy Joseph Covered Member ID Joseph Member ID Guarantor Name 07/03/2024 1 [facility] - DOS ON OR AFTER 2023 - DUAL ELIGIBLE - [facility] OPT[employer] AND ONE CARE (MEDICARE REPLACEMENT/ADV ANTAGE - HMO) Erasmo Charles [id number] Erasmo Charles Notes Date Note Type Note Provider Name and Address Organization Details Recorded Time 12/17/2023 text/html [facility] Nurse Triage Notes (Freddy Trejo): Reason For Request: Pt reporting 7 out of 8 centralized abdominal pain 11/14/23 mbr went to ED for similar pain (not as strong pain as being reported today)>was given antibiotic which did not help as much. 12/14/23 mbr presented to [facility] for similar pain and received antibiotic shot and was sent home with a medication that was 3x a day for pain and made him urinate redish color. 12/15/23 mbr worsened and went to ED> Chief Complaints: Pain Allergies: No Known Comments: Labor Custodian verified the member's name//address and phone number. [...] .................. .................. .................. .................. .................. .................. ............... Linotype Worker Note From Daniel Herrera: Pt co lower clenching tingling abdominal pain , painful upon palpation, denies urinary pain fever sob confusion cp. baseline vitals assessed. Very hypotensive. Abdomen had pain upon palpitation. Pt wincing in pain. [facility] contacted and advised ER. Pt agreed. 911 called pt transported to [facility]. .................. .................. .................. .................. .................. .................. .................. ............... Disposition: Ravi LEMUS MD [address], [place], [phone], [employer] 12/17/2023 18:30:41 01/07/2024 text/html HPI: HX: Paraplegia following meningitis. Recurrent UTI with urinary retention. Anticoag on coumadin. Seen at [facility] 01/06/24 with negative work up for pain in lower abdomen. Patient reorts nausea and pain worse after eating currently 02/24. No vomiting and BM today. Team appt scheduled for Wednesday. .................. .................. .................. .................. .................. .................. .................. ............... [facility] Nurse Triage Notes (Freddy Trejo): Comments: Reviewed HPI Jovan Hawk MD [address] [facility],[address], [place], [address], [employer] 01/07/2024 19:38:39 07/03/2024 text/html HPI: MS called and member not on the line, she states member was in ER, he is home and can't sleep and has pain and wants someone to come see him. Labor Custodian obtained production or plant engineer ID# [id number]. Erasmo states he went to ER because [...] .................. .................. .................. .................. .................. .................. ............... Linotype Worker Note From Manish Thomas: Pt reports one [...] an in person eval. Red flags reviewed. [facility] Lab Orders: culture, urine: Performed .................. .................. .................. .................. .................. .................. .................. ............... Disposition: Fulfilled Mathew Nguyen MD [address] [place] [address],[address], [place], [address], [employer] 07/03/2024 18:45:33
== END 2025-04-11 11:23 | disposition home or self-care (01) ==
LOC: HO.HGI 10:10
PROVIDERS: PCP Internal Medicine; Visit Provider Nurse Practitioner
DX: D12.6 Benign neoplasm of colon, unspecified (principal)
CPT/HCPCS: 99214

== ENCOUNTER → 2025-04-11 10:09 | Outpatient (BNVA) | payer MEDICARE, SELFPAY | PROVIDERS: PCP Internal Medicine; Visit Provider Nurse Practitioner | DX: Z12.11 Encounter for screening for malignant neoplasm of colon (principal); D12.6 Benign neoplasm of colon, unspecified | CPT/HCPCS: 99212 ==

== ENCOUNTER 2025-04-24 09:28 | Outpatient (REF) | payer MEDICARE, SELFPAY ==
--- OUTSIDE RECORDS SUMMARY | 2025-04-24 09:55 | XMS_ITS | Encounter Summary ---
Author Organization [employer] Address [address] [facility] [address] [place] [address] Care Team Providers Care Bricklayer Apprentice Name Role Phone Kaylah Foley MD Primary Care Provider + Reason for Visit * Reason Comments Med Refill Encounter Details Date Type Department Care Team ([facility] st Contact Info) Description 05/16/2024 Refill [facility] MEDICINE [address], [place] [phone] Erum Scott MD [address], [place] [phone] Flaccid paraplegia (CMS/HCC) Social History Tobacco Use [...] Care Team (Late st Contact Info) Description 06/21/2025 11:45 AM EDT Office Visit [facility] MEDICINE [address] [place] [phone] Kaylah Foley MD [address] [place] [phone] 06/22/2025 9:30 AM EDT Telemedicine [address] [address] Arlet Quijano, ROBERT documented as of this encounter Visit Diagnoses Diagnosis Flaccid paraplegia (CMS/HCC) Paraplegia documented in this encounter Additional Health Concerns Assessment Noted Time PHQ-9 Depression Total Score: 3 10/07/20 23 9:51 AM EST documented as of this encounter Care Teams Bricklayer Apprentice Relationship Specialty Start Date End Date Kaylah Foley MD [address] [place] [phone] PCP - General Family Medicine 06/02/17 documented as of this encounter
--- OUTSIDE RECORDS SUMMARY | 2025-04-24 09:55 | XMS_ITS | Data Portability ---
Author Organization [employer], [facility] Address [address] [place] [address] Care Team Providers Care Collateral Specialist Name Role Phone HIM YOEL OTHER Assessment Encounter Date Assessment Date Assessment LastModified by Organization Details LastModified Time 07/03/2024 07/03/2024 As noted, we were called to see this patient regarding concerns of penile pain. Evaluation in the field was performed by my putty and caulking supervisor colleague, as noted above, I provided real-time direction and supervision for this visit. The evaluation revealed same. Impression: Complex 63yo/m with hx of paraplegia and neurogenic bladder who self catheterizes who called for evaluation for continued penile pain. Patient is 63 and interviewed with mail superintendent, and medic in home reports patient was [...] symptoms, particularly worsening or change in symptoms. [id number] Not available 07/03/2024 18:36:24 Plan of Treatment Reminders Order Date Submit Date Provider Last Modified By Organization Details Last Modified Time Details Appointments None recorde d. Lab culture , urine 024 07/03/20 24 [place] (Centralized Electronic Ordering - All Locations), Patient Can Go To The Location Of Their Choice, [id number] 10:06:52 Referral None recorde d. Procedures None [...] culture,comp rehensive Final report Not Available [facility] ([facility]) [address] [facility], [place], [address], 07/06/2024 12:06:12 07/03/20 24 07/06/2024 URINE CULTU RE,CO MPREH ENSIV E result 1 COMMEN T No growt h in 36 - 48 hours . Not Available [facility] ([facility]) [address], [place], [address], 07/06/2024 12:06:12 Result Notes None recorded. 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 4 16:34:42 Date Recorded Body temperature Respiratory rate Heart rate Oxygen saturation Oxygen saturation in Arterial blood by Pulse oximetry Systolic And Diastolic Provider Name and Address Organization Details Last Updated DateTime 4 98.9 [degF] 18 /min 70 /min 97 % 97 % 148/84 mm[Hg] Not Available [employer] - production 4 19:32:45 Date Recorded Heart rate Body temperature Oxygen saturation Oxygen saturation in Arterial blood by Pulse oximetry Respiratory rate Systolic And Diastolic Provider Name and Address Organization Details Last Updated DateTime 4 70 /min 97.5 [degF] 96 % 96 % 16 /min 119/72 mm[Hg] Not Available [employer] - [facility] 4 18:17:22 Social History None recorded. Functional Status None recorded. Mental Status None recorded. Family History Nothing Reported. Medical History No medical history recorded. Past Encounters Encounter ID Performer Location Encounter Start Date Encounter Closed Date Diagnosis/Indication Diagnosis SNOMED-CT Code Diagnosis ICD10 Code Diagnosis Note [id number] YAMINI LEMUS MD [facility] [address] [place] [id number] 12/17/2023 16:34:41 12/17/2023 19:30:05 Low blood pressure 38439624 I95.9 Evaluation in the field was performed by my putty and caulking supervisor colleague, as noted above, I provided real-time [...] BP was checked 3 times by the putty and caulking supervisor and the highest value of BP 76/48. Pt afebrile but with diffuse abdominal pain, guarding.G vasu hypotensio n, severe abdominal pain and the fact that pt lives by himself, he is a high risk of developing sepsis. Impression :Hypotensi on/ abdominal pain/ possible UTI Plan:Pt to be transporte d to [facility]. Expect called. Primary care, consider__ _ Dispositio n: [facility] ED [id number] Jovan Hawk MD [facility] - [facility] [address] [place] [address] [id number] 01/07/2024 19:32:43 01/08/2024 00:36:17 Chronic abdominal pain 049831191 R10.9 This 63-year-ol d male has had intermitte nt abdominal pain for over three weeks. He was recently evaluated in the ER with a negative workup. He continues to have pain not responding to Tylenol. I ordered Toradol 15 mg IM and suggested he alternate ibuprofen and Tylenol. He will follow-up with his PCP. The patient agreed with this plan. [id number] Mathew Nguyen MD [facility] [address] [place] [phone] 07/03/2024 18:17:19 07/03/2024 20:33:59 Pain in penis 492199951 N48.89 Health Concerns Section Related Observation LastModified by Organization Detai ls LastModified Time None Recorded Concern Status LastModified by Organization Details LastModified Time None Recorded Advance Directives Directive None Recorded Payers Insurance Date Sequence Insurance Name Policy Number Policy Joseph Covered Member ID Joseph Member ID Guarantor Name 07/03/[address] [facility] - DOS ON OR AFTER 2023 - DUAL ELIGIBLE - [facility] OPTIONS AND ONE [employer] (MEDICARE REPLACEMENT/ADV ANTAGE - HMO) Erasmo Charles [id number] Erasmo Charles Notes Date Note Type Note Provider Name and Address Organization Details Recorded Time 12/17/2023 text/html [facility] Nurse Triage Notes (Freddy Trejo): Reason For Request: Pt reporting 7 out of 8 centralized abdominal pain 11/14/23 mbr went to ED for similar pain (not as strong pain as being reported today)>was given antibiotic which did not help as much. 12/14/23 mbr presented to [facility] for similar pain and received antibiotic shot and was sent home with a medication that was 3x a day for pain and made him urinate redish color. 12/15/23 mbr worsened and went to ED> Chief Complaints: Pain Allergies: No Known Comments: Animal Control Officer verified the member's name//address and phone number. [...] .................. .................. .................. .................. .................. .................. ............... Signals Intelligence Analyst Note From Daniel Herrera: Pt co lower clenching tingling abdominal pain , painful upon palpation, denies urinary pain fever sob confusion cp. baseline vitals assessed. Very hypotensive. Abdomen had pain upon palpitation. Pt wincing in pain. [facility] [place] and [place]. Pt agreed. 911 called pt transported to [facility]. .................. .................. .................. .................. .................. .................. .................. ............... Disposition: Fulfilled YAMINI LEMUS MD [address], [place], [address], [employer] 12/17/2023 18:30:41 01/07/2024 text/html HPI: HX: Paraplegia following meningitis. Recurrent UTI with urinary retention. Anticoag on coumadin. Seen [place] [facility] [place] 01/06/24 with negative work up for pain in lower abdomen. Patient reorts nausea and pain worse after eating currently 02/24. No vomiting and BM today. Team appt scheduled for Wednesday. .................. .................. .................. .................. .................. .................. .................. ............... [facility] Nurse Triage Notes (Freddy Trejo): Comments: Reviewed HPI Jovan Hawk MD [address], [place], [address], [employer] 01/07/2024 19:38:39 07/03/2024 text/html HPI: MS called and member not on the line, she states member was in ER, he is home and can't sleep and has pain and wants someone to come see him. Animal Control Officer obtained braid maker ID# [id number]. Erasmo states he went to ER because [...] .................. .................. .................. .................. .................. .................. ............... Signals Intelligence Analyst Note From Manish Thomas: Pt reports one [...] an in person eval. Red flags reviewed. [facility] [place] Orders: culture, urine: Performed .................. .................. .................. .................. .................. .................. .................. ............... Disposition: Fulfilled Mathew Nguyen MD [address] [place] [address],[address], [place], [address], [employer] 07/03/2024 18:45:33
[2025-04-24 12:17] LABS: MANUAL DIFF FLAG NO
[2025-04-24 12:24] LABS: Hematocrit 43.7 % (42.0-52.0); Hemoglobin 14.1 g/dl (14.0-18.0); Imm Gran Abs Auto 0.02 X10*3/uL (0.00-0.03); Imm Gran Pct Auto 0.3 % (0.0-0.4); Lymphocytes Absolute Auto 1.1 X10*3/uL (1.2-4.9); Mean Corpuscular HGB Conc 32.3 g/dl (31.0-36.0); Mean Corpuscular Hemoglobin 28.3 pg (27.0-33.0); Mean Corpuscular Volume 87.6 fL (80.0-98.0); NRBC Abs Auto 0.000 X10*3/uL (0.0-0.012); NRBC Pct Auto 0.0 /100WBC (0.0-0.2); Platelet Count 191 X10*3/uL (160-400); Red Blood Count 4.99 X10*6/uL (4.60-5.80); White Blood Count 5.7 X10*3/uL (4.8-10.8)
[2025-04-24 12:46] LABS: Hemoglobin A1C 132.4707 umol/L; Total Hemoglobin (HGBA1C) 3774.6269 umol/L
[2025-04-24 12:55] LABS: Alanine Aminotransferase 34 U/L (0-40); Albumin Level 4.3 g/dL (3.5-5.0); Alkaline Phosphatase 48 U/L (39-117); Anion Gap 11 (12-20); Aspartate Amino Transferase 29 U/L (5-37); Blood Urea Nitrogen 14 mg/dL (9-16); Calcium 8.6 mg/dL (8.4-10.2); Carbon Dioxide 26 mmol/L (22-29); Chloride 101 mmol/L (96-108); Estimated Glomerular Filt Rate > 60; Potassium 4.1 mmol/L (3.3-5.1); Prostate Specific Antigen 1.20 ng/mL (<0.05-4.0); Sodium 134 mmol/L (135-145); Total Protein 6.5 g/dL (6.5-8.0)
== END 2025-04-24 09:29 | disposition home or self-care (01) ==
LOC: HO.HHCL 09:28
PROVIDERS: Nurse Practitioner Family; PCP Internal Medicine; Visit Provider Family Medicine
DX: Z12.5 Encounter for screening for malignant neoplasm of prostate (principal); Z13.1 Encounter for screening for diabetes mellitus; N39.0 Urinary tract infection, site not specified; I95.9 Hypotension, unspecified; N31.9 Neuromuscular dysfunction of bladder, unspecified
CPT/HCPCS: 36415; 80048; 80076; 83036; 84153; 85025; 85652; 86140; 87086

== ENCOUNTER 2025-05-02 10:15 | Outpatient (AMB) | payer MEDICARE, SELFPAY ==
--- NOTE | 2025-05-02 10:16 | A.OFFVIS_ITS ---
Vital Signs 05/02/25 10:26 Height 5 ft 5 in BMI Reason not done Patient refused/unable BP 78/43 L Pulse 69 Intake Visit Reasons: 3 wks Severe CIC Intake Note: Erasmo presents in the office as a 3 week follow up. CC: He states that he is not having constipation as much. He has a little issue with his rectum or pshincter not opening. Brand Attendant Required: Yes Allergies No Known Allergies Allergy (Mild, Verified 05/02/25 10:24) NOT APPLICABLE HPI HPI 3 wks Severe CIC: Details: Assessment & Plan (1) Tubular adenoma of colon: Comment: 03/2025 scope= 3 TA is repeat in 3 years Code(s): D12.6 - Benign neoplasm of colon, unspecified Category: Medical Plan [place] #[id number] The procedure needs to be repeated in 3 years due to 3 TA is. The procedure was well tolerated. The results were explained and the patient is agreeable to the follow-up interval as stated. The bowel pattern has returned to normal. Education was provided to tell any 1st degree relatives about their findings to be sure that they are screened by age 45. Educated that they will be put on a recall list when it is time for their repeat scope but should they move out of state or away from the hospital they will need to remember along with their primary to repeat the procedure in a timely fashion to avoid any adverse complications. He presented to the ER this week for severe stomach pain and CIC. he was c/o stomach cramping, and they kept saying that his baclofen was not helping. But this only aids skeletal striated muscles and not smooth muscles. He only moves his bowels every 3 days and the BM's are very hard. He has to strain to pass any stools. He is a paraplegic, so this complicates the problem. So far, he has falled fiber, miralax, senna, bisacodyl, colace and we will progress to Linzess 145mcg and titrate. I want him to continue the senna to stimulate movement/motility. He continues the bentyl which is helping with bowel cramping. Medications: New linaclotide (Linzess) Take first thing in the morning with a full glass of water. 145 mcg PO QAM 30 caps 3RF K58.1 - Irritable bowel syndrome with constipation Refilled dicyclomine 20 mg PO QID PRN 120 tabs 6RF abdominal pain 30 days R10.9 - Unspecified abdominal pain Discontinued peg 3350-electrolytes 236-22.74-6.74 -5.86 gram (Golytely) until fecal effluent is clear; do not exceed a total volume of 2,000 mL Discontinued Reason: Patient Completed Course 240 mL PO Q10M 1 day 4,000 mL 0RF Z12.11 - Encounter for screening for malignant neoplasm of colon On Hold polyethylene glycol 3350 (Gavilax) Hold Comment: Doctor's Order 17 grams PO DAILY 238 grams 0RF Patient Instructions: Charles MoscosoErasmo 1. Empiece a yuliya el nuevo medicamento llamado Linzess y t?russo a primera hora de la ma?jose ramon con un vaso lleno de agua. Est? en la dosis media; si no funciona, contin?e tomando Linzess y a?ada Gavalax. Si tiene diarrea, suspenda saima el sen y omita un d?a con Linzess. Aumentar? o disminuir? la dosis seg?n dlegado evoluci?n. 2. Contin?e tomando 2 sen antes de acostarse. 3. Suspenda el Gavilax. Contin?a con tu fibra y probi?ticos TODAYS VISIT [place] #Kasey Still He received the Linzess 145mcg, but even with taking it daily with senna he still has to push a great deal to produce a BM and he has a lot of cramping. We will increase it to 20-mcg and continue to titrate his therapy. He does feel that the bentyl helps a lot with the pain. He had one episode of diarrhea/loose stools but he is unsure why. He was eating a lot of apples and pears - which he found bloated him - so this could be the reason. We will have to keep an eye on this since his immobility/paraplegia would present a challenge with diarrhea. ROV 4 weeks. [facility] Medical History Pre-op examination Paraplegia DVT (deep venous thrombosis) Colon cancer screening UTI (urinary tract infection) Hx of meningitis Renal cyst, acquired Neurogenic bladder Surgical History History of cystoscopy (05/19/22) History of colonoscopy H/O abdominal surgery Social History Housing: Apartment Patient Tobacco Use Status: Former Tobacco user Review of Systems Const Denies fatigue, Denies fever(s), Denies night sweats, Denies poor appetite and Denies weight loss ENT Reports Normal hearing present, Denies dysphagia, Denies odynophagia, Denies throat swelling and Denies tongue swelling Card Reports no additional complaints Resp Reports no additional complaints GI Details: Denies abdominal pain, Denies melena, Denies bloating, Denies hematochezia, Reports constipation, Reports GI cramping, Denies dysphagia, Denies excessive flatus, Denies early satiety, Denies heartburn, Denies diarrhea, Denies nausea, Denies odynophagia, Denies vomiting and Denies hematemesis Musc Reports abnormal gait, Reports atrophy and Reports muscle weakness Skin/Breast Denies pruritus, Denies lesions, Denies rash and Denies jaundice Neuro Reports Normal hearing present, Denies Abnormal speech present and Reports abnormal gait Endo Denies fatigue Aller/Immun Denies throat swelling and Denies tongue swelling Physical Exam Vital Signs: Last Vital Signs Pulse 69 05/02/25 10:26 BP 78/43 L 05/02/25 10:26 Const General: cooperative, no acute distress, well developed and well groomed Nutritional Appearance: well nourished Orientation/consciousness: oriented to person, oriented to place and oriented to time Limitations: language barrier and wheelchair HEENT Head: Yes normocephalic and Yes atraumatic Eyes General: appearance normal, both eyes and all related structures Pupils: Equal, round and reactive pupils present Neck Neck: Yes normal visual inspection and Yes no lymphadenopathy Thyroid: Thyroid normal Resp Effort & Inspection: normal respiratory effort and able to speak in complete sentences Auscultation: clear to auscultation bilaterally Cardio Rate: regular rate Rhythm: regular rhythm Heart sounds: Normal, physiologic split S2 sound present Peripheral pulses: radial pulses present and posterior tibial pulses present GI Inspection: No distended and No Abdominal panniculus present Palpation (GI): Soft to palpation, nontender, no guarding, not rigid and No hepatosplenomegaly present Percussion: Yes normal to percussion Auscultation: normal bowel sounds Rectal Exam - Male: Yes deferred Skin General skin exam: no rashes or lesions noted, turgor normal, skin not dry, no jaundice, No spider nevi and no striae Rashes: no rashes Nails: normal Neuro General: oriented to person, oriented to place and oriented to time Cranial nerves: Yes Equal, round and reactive pupils present and Yes Normal hearing present Speech: No Abnormal speech present Gait exam (Neuro): Spastic hemiparesis gait present Extrem General: Yes normal to inspection, No clubbing, No cyanosis and No edema Psych Appearance: grossly normal and well kempt Mental Status: mental status grossly normal Speech and movement: Normal speech and movement present Affect: normal affect Attitude: cooperative Thought process: Normal thought process present and not confabulating Thought content: Normal thought content present Insight: Fair insight present (Psych) Judgement: Fair judgement present (Psych) Assessment & Plan Assessment & Plan (1) Chronic idiopathic constipation: Code(s): K59.04 - Chronic idiopathic constipation Category: Medical (2) Paraplegia: Comment: from meningitis in 2003 and was hospitalized until 2004 one year per patient Code(s): G82.20 - Paraplegia, unspecified Category: Medical Plan [place] #Kasey Live He received the Linzess 145mcg, but even with taking it daily with senna he still has to push a great deal to produce a BM and he has a lot of cramping. We will increase it to 20-mcg and continue to titrate his therapy. He does feel that the bentyl helps a lot with the pain. He had one episode of diarrhea/loose stools but he is unsure why. He was eating a lot of apples and pears - which he found bloated him - so this could be the reason. We will have to keep an eye on this since his immobility/paraplegia would present a challenge with diarrhea. ROV 4 weeks. Medications: New linaclotide (Linzess) 290 mcg PO QAM 30 caps 6RF 30 days K59.04 - Chronic idiopathic constipation Discontinued linaclotide (Linzess) Take first thing in the morning with a full glass of water. Discontinued Reason: Doctor's Order 145 mcg PO QAM 30 caps 3RF K58.1 - Irritable bowel syndrome with constipation Coding Level of Care Code Est Pt Level 3 (50429) Diagnoses Chronic idiopathic constipation K59.04 Paraplegia G82.20
[2025-05-02 10:26] VITALS: BP 78/43; PULSE 69
--- OUTSIDE RECORDS SUMMARY | 2025-05-02 10:48 | XMS_ITS | Data Portability ---
Author Organization [employer], [facility] Address [address] [place] [address] Care Team Providers Care Heating Element Builder Name Role Phone HIM YOEL OTHER Assessment Encounter Date Assessment Date Assessment LastModified by Organization Details LastModified Time 07/03/2024 07/03/2024 As noted, we were called to see this patient regarding concerns of penile pain. Evaluation in the field was performed by my faculty research assistant colleague, as noted above, I provided real-time direction and supervision for this visit. The evaluation revealed same. Impression: Complex 63yo/m with hx of paraplegia and neurogenic bladder who self catheterizes who called for evaluation for continued penile pain. Patient is 63 and interviewed with electrician maintenance, and medic in home reports patient was [...] symptoms, particularly worsening or change in symptoms. [email or web address] Not available 07/03/2024 18:36:24 Plan of Treatment Reminders Order Date Submit Date Provider Last Modified By Organization Details Last Modified Time Details Appointments None recorde d. Lab culture , urine 024 07/03/20 24 GENOA [facility] (Centralized Electronic Ordering - All Locations), Patient Can Go To The Location Of Their Choice, [address] 10:06:52 Referral None recorde d. Procedures None [...] culture,comp rehensive Final report Not Available [facility] ([facility]) [address] [facility], [place], [address], 07/06/2024 12:06:12 07/03/20 24 07/06/2024 URINE CULTU RE,CO MPREH ENSIV E result 1 COMMEN T No growt h in 36 - 48 hours . Not Available [facility] ([facility]) [address], [place], [address], 07/06/2024 12:06:12 Result Notes None recorded. Medical [...] Not Available No t Available Artificial Tears ([id number] ll-glycerin) 1 %-0.2 %-0.2 % eye drops INSTILL 1 DROP INTO THE AFFECTED EYE(S) FOUR TIMES DAILY active Not Available Not Available No t Available Vitals Date Recorded Heart rate Body weight Oxygen saturation Oxygen saturation in Arterial blood by Pulse oximetry Body temperature Respiratory rate Systolic And Diastolic Provider Name and Address Organization Details Last Updated DateTime 4 76 /min 43946.9 6 g 95 % 95 % 97.6 [degF] 18 /min 76/48 mm[Hg] Not Available [employer] [facility] [facility] production 4 16:34:42 Date Recorded Body temperature Respiratory rate Heart rate Oxygen saturation Oxygen saturation in Arterial blood by Pulse oximetry Systolic And Diastolic Provider Name and Address Organization Details Last Updated DateTime 4 98.9 [degF] 18 /min 70 /min 97 % 97 % 148/84 mm[Hg] Not Available [employer] - production 4 19:32:45 Date Recorded Heart rate Body temperature Oxygen saturation Oxygen saturation in Arterial blood by Pulse oximetry Respiratory rate Systolic And Diastolic Provider Name and Address Organization Details Last Updated DateTime 4 70 /min 97.5 [degF] 96 % 96 % 16 /min 119/72 mm[Hg] Not Available [facility] [employer] [facility] production 4 18:17:22 Social History None recorded. Functional Status None recorded. Mental Status None recorded. Family History Nothing Reported. Medical History No medical history recorded. Past Encounters Encounter ID Performer Location Encounter Start Date Encounter Closed Date Diagnosis/Indication Diagnosis SNOMED-CT Code Diagnosis ICD10 Code Diagnosis Note [id number] YAMINI LEMUS MD [facility] [address] [place] [address] [phone] 12/17/2023 16:34:41 12/17/2023 19:30:05 Low blood pressure 12105041 I95.9 Evaluation in the field was performed by my faculty research assistant colleague, as noted above, I provided real-time [...] BP was checked 3 times by the faculty research assistant and the highest value of BP 76/48. Pt afebrile but with diffuse abdominal pain, guarding.G vasu hypotensio n, severe abdominal pain and the fact that pt lives by himself, he is a high risk of developing sepsis. Impression :Hypotensi on/ abdominal pain/ possible UTI Plan:Pt to be transporte d to [facility]. Expect called. Primary care, consider__ _ Dispositio n: [facility] ED [id number] Jovan Hawk MD Main - [facility] [address] [place] [address] [phone] [id number] 01/07/2024 19:32:43 01/08/2024 00:36:17 Chronic abdominal pain 588043214 R10.9 This 63-year-ol d male has had intermitte nt abdominal pain for over three weeks. He was recently evaluated in the ER with a negative workup. He continues to have pain not responding to Tylenol. I ordered Toradol 15 mg IM and suggested he alternate ibuprofen and Tylenol. He will follow-up with his PCP. The patient agreed with this plan. [id number] Mathew Nguyen MD Main - [facility] [address] [place] [address] [phone] 07/03/2024 18:17:19 07/03/2024 20:33:59 Pain in penis 962318262 N48.89 Health Concerns Section Related Observation LastModified by Organization Detai ls LastModified Time None Recorded Concern Status LastModified by Organization Details LastModified Time None Recorded Advance Directives Directive None Recorded Payers Insurance Date Sequence Insurance Name Policy Number Policy Joseph Covered Member ID Joseph Member ID Guarantor Name 07/03/2024 1 [facility] - DOS ON OR AFTER 2023 - DUAL ELIGIBLE - [facility] [employer] AND ONE [employer] (MEDICARE REPLACEMENT/ADV ANTAGE - HMO) Erasmo Charles [id number] Erasmo Charles Notes Date Note Type Note Provider Name and Address Organization Details Recorded Time 12/17/2023 text/html [facility] Nurse Triage Notes (Freddy Trejo): Reason For Request: Pt reporting 7 out of 8 centralized abdominal pain 11/14/23 mbr went to ED for similar pain (not as strong pain as being reported today)>was given antibiotic which did not help as much. 12/14/23 mbr presented to [facility] for similar pain and received antibiotic shot and was sent home with a medication that was 3x a day for pain and made him urinate redish color. 12/15/23 mbr worsened and went to ED> Chief Complaints: Pain Allergies: No Known Comments: Fashion Editor verified the member's name//address and phone number. [...] .................. .................. .................. .................. .................. .................. ............... Citizen Participation Specialist Note From Daniel Herrera: Pt co lower clenching tingling abdominal pain , painful upon palpation, denies urinary pain fever sob confusion cp. baseline vitals assessed. Very hypotensive. Abdomen had pain upon palpitation. Pt wincing in pain. [facility] contacted and advised ER. Pt agreed. 911 called pt transported to [facility]. .................. .................. .................. .................. .................. .................. .................. ............... Disposition: Fulfilled YAMINI LEMUS MD [address], [place], [phone], [employer] 12/17/2023 18:30:41 01/07/2024 text/html HPI: HX: Paraplegia following meningitis. Recurrent UTI with urinary retention. Anticoag on coumadin. Seen at [facility] [place] ED 01/06/24 with negative work up for pain in lower abdomen. Patient reorts nausea and pain worse after eating currently 02/24. No vomiting and BM today. Team appt scheduled for Wednesday. .................. .................. .................. .................. .................. .................. .................. ............... [facility] Nurse Triage Notes (Freddy Trejo): Comments: Reviewed HPI Jovan Hawk MD [address], [place], [address], [employer] 01/07/2024 19:38:39 07/03/2024 text/html HPI: MS called and member not on the line, she states member was in ER, he is home and can't sleep and has pain and wants someone to come see him. Fashion Editor obtained skin grader ID# [id number]. Erasmo states he went to ER because [...] .................. .................. .................. .................. .................. .................. ............... Citizen Participation Specialist Note From Manish Thomas: Pt reports one [...] an in person eval. Red flags reviewed. [facility] Lab Orders: culture, urine: Performed .................. .................. .................. .................. .................. .................. .................. ............... Disposition: Fulfilled Mathew Nguyen MD [address] [place] [address],[address], [place], [address], [employer] 07/03/2024 18:45:33
--- OUTSIDE RECORDS SUMMARY | 2025-05-02 10:48 | XMS_ITS | Encounter Summary ---
Author Organization [employer] Address [address] [facility] [address] [place] [address] Care Team Providers Care Watch Parts Grinder Name Role Phone Kaylah Foley MD Primary Care Provider + Reason for Visit * Reason Comments Med Refill Encounter Details Date Type Department Care Team ([facility] st Contact Info) Description 05/16/2024 Refill [facility] [address] [place], [place] [phone] Erum Scott MD [address] [place], [place] [phone] Flaccid paraplegia (CMS/HCC) Social History Tobacco Use [...] Description 06/21/2025 11:45 AM EDT Office Visit [facility] [address] [place] [phone] Kaylah Foley MD [address] [place] [phone] 06/22/2025 9:30 AM EDT Telemedicine [address] [address] Arlet Quijano, ROEBRT documented as of this encounter Visit Diagnoses Diagnosis Flaccid paraplegia (CMS/HCC) Paraplegia documented in this encounter Additional Health Concerns Assessment Noted Time PHQ-9 Depression Total Score: 3 10/07/20 23 9:51 AM EST documented as of this encounter Care Teams Watch Parts Grinder Relationship Specialty Start Date End Date Kaylah Foley MD [address] [place] [phone] PCP - General Family Medicine 06/02/17 documented as of this encounter
== END 2025-05-02 10:54 | disposition home or self-care (01) ==
LOC: HO.HGI 10:15
PROVIDERS: PCP Internal Medicine; Visit Provider Nurse Practitioner
DX: K59.04 Chronic idiopathic constipation (principal); G82.20 Paraplegia, unspecified
CPT/HCPCS: 99213

== ENCOUNTER → 2025-05-02 10:15 | Outpatient (BNVA) | payer OTHER, SELFPAY | PROVIDERS: PCP Internal Medicine; Visit Provider Nurse Practitioner | DX: K59.04 Chronic idiopathic constipation (principal); G82.20 Paraplegia, unspecified; K58.1 Irritable bowel syndrome with constipation; Z79.899 Other long term (current) drug therapy | CPT/HCPCS: 99212 ==

== ENCOUNTER 2025-05-22 15:27 | Outpatient (REF) | payer OTHER, SELFPAY ==
--- OUTSIDE RECORDS SUMMARY | 2025-05-22 15:54 | XMS_ITS | Encounter Summary ---
Author Organization [employer] Address [address] [facility] [address] [place] [address] Care Team Providers Care Cyber Security Specialist Name Role Phone Kaylah Foley MD Primary Care Provider + Reason for Visit * Reason Comments Med Refill Encounter Details Date Type Department Care Team ([facility] st Contact Info) Description 05/16/2024 Refill [facility] [address] [place], [place] [phone] Erum Scott MD [address] [place], [place] [phone] Flaccid paraplegia (CMS/HCC) Social History Tobacco Use [...] Description 06/21/2025 11:45 AM EDT Office Visit [facility] [address] [place] [address] Kaylah Foley MD [address] [place] [address] 06/22/2025 9:30 AM EDT Telemedicine [address] [address] Arlet Quijano, ROBERT documented as of this encounter Visit Diagnoses Diagnosis Flaccid paraplegia (CMS/HCC) Paraplegia documented in this encounter Additional Health Concerns Assessment Noted Time PHQ-9 Depression Total Score: 3 10/07/20 23 9:51 AM EST documented as of this encounter Care Teams Cyber Security Specialist Relationship Specialty Start Date End Date Kaylah Foley MD [address] [place] [phone] PCP - General Family Medicine 06/02/17 documented as of this encounter
[2025-05-22 16:31] LABS: Appearance Urine Clear; Glucose Urine UA Negative (Negative); PH 6.5 (5.0-9.0); Specific Gravity - Urine 1.010 (1.005-1.025); UMIC TRIGGER UA YES
== END 2025-05-22 15:28 | disposition home or self-care (01) ==
LOC: HO.LAB 15:27
PROVIDERS: Visit Provider Nurse Practitioner Family
DX: N31.9 Neuromuscular dysfunction of bladder, unspecified (principal); N39.0 Urinary tract infection, site not specified
CPT/HCPCS: 81001; 87086

== ENCOUNTER 2025-06-07 10:53 | Outpatient (AMB) | payer MEDICARE, SELFPAY ==
--- NOTE | 2025-06-07 10:54 | A.OFFVIS_ITS ---
Vital Signs 06/07/25 10:57 Height 5 ft 5 in BMI Reason not done Patient refused/unable BP 101/51 L Blood Pressure Location Lt brachial Position Sitting Pulse 67 Intake Visit Reasons: CIC, GERD Intake Note: Erasmo presents in the office as a follow up for GERD and CIC. CC: States that he is not having constipation but he has a problem with all the stools coming out. He states that he feels like the spincter is not working - he has to drink a bottle of water and strain a lot to have all the stool come out. He denies blood when he has a BM. Experimental Psychologist Required: Yes Experimental Psychologist Name: [id number] Daniele Allergies No Known Allergies Allergy (Mild, Verified 06/07/25 10:58) NOT APPLICABLE HPI HPI CIC, GERD: Details: Assessment & Plan (1) Chronic idiopathic constipation: Code(s): K59.04 - Chronic idiopathic constipation Category: Medical (2) Paraplegia: Comment: from meningitis in 2003 and was hospitalized until 2004 one year per patient Code(s): G82.20 - Paraplegia, unspecified Category: Medical Plan Turkish #[employer] He received the Linzess 145mcg, but even with taking it daily with senna he still has to push a great deal to produce a BM and he has a lot of cramping. We will increase it to 20-mcg and continue to titrate his therapy. He does feel that the bentyl helps a lot with the pain. He had one episode of diarrhea/loose stools but he is unsure why. He was eating a lot of apples and pears - which he found bloated him - so this could be the reason. We will have to keep an eye on this since his immobility/paraplegia would present a challenge with diarrhea. ROV 4 weeks. Medications: New linaclotide (Linzess) 290 mcg PO QAM 30 caps 6RF 30 days K59.04 - Chronic idiopathic constipation Discontinued linaclotide (Linzess) Take first thing in the morning with a full glass of water. Discontinued Reason: Doctor's Order 145 mcg PO QAM 30 caps 3RF K58.1 - Irritable bowel syndrome with constipation TODAYS VISIT Turkish #[id number] [facility] Medical History Pre-op examination Paraplegia DVT (deep venous thrombosis) Colon cancer screening UTI (urinary tract infection) Hx of meningitis Renal cyst, acquired Neurogenic bladder Surgical History History of cystoscopy (05/19/22) History of colonoscopy H/O abdominal surgery Social History Housing: Apartment Patient Tobacco Use Status: Former Tobacco user Review of Systems Const Denies fatigue, Denies fever(s), Denies night sweats, Denies poor appetite and Denies weight loss Eyes Details: glasses Reports requires corrective lenses ENT Reports Normal hearing present, Denies dental pain, Denies dysphagia, Denies hearing loss, Denies mouth pain, Denies odynophagia, Denies throat swelling, Denies tongue swelling and Reports other (Dentition adequate) Card Reports no additional complaints Resp Reports no additional complaints GI Details: Denies abdominal pain, Denies melena, Denies bloating, Denies hematochezia, Reports constipation, Reports GI cramping, Denies dysphagia, Denies excessive flatus, Denies early satiety, Denies heartburn, Denies diarrhea, Denies nausea, Denies odynophagia, Denies vomiting and Denies hematemesis Reports urinary frequency Musc Reports abnormal gait, Reports atrophy and Reports deformity Skin/Breast Denies pruritus, Denies lesions, Denies rash and Denies jaundice Neuro Reports Normal hearing present, Denies Abnormal speech present, Reports abnormal gait, Reports focal weakness and Reports Sensory deficit (Neuro) Endo Denies fatigue Aller/Immun Denies throat swelling and Denies tongue swelling Physical Exam Vital Signs: Last Vital Signs Pulse 67 06/07/25 10:57 BP 101/51 L 06/07/25 10:57 Const General: cooperative, no acute distress, well developed and well groomed Nutritional Appearance: well nourished and thin Orientation/consciousness: oriented to person, oriented to place and oriented to time Limitations: language barrier and wheelchair HEENT Head: Yes normocephalic and Yes atraumatic Mouth: other (Hoarse voice) Eyes General: appearance normal, both eyes and all related structures Pupils: Equal, round and reactive pupils present Neck Neck: Yes normal visual inspection and Yes no lymphadenopathy Thyroid: Thyroid normal Resp Effort & Inspection: normal respiratory effort and able to speak in complete sentences Auscultation: clear to auscultation bilaterally Cardio Rate: regular rate Rhythm: regular rhythm Heart sounds: Normal, physiologic split S2 sound present Peripheral pulses: radial pulses present and posterior tibial pulses present GI Inspection: No distended and No Abdominal panniculus present Palpation (GI): Soft to palpation, nontender, no guarding, not rigid and No hepatosplenomegaly present Percussion: Yes normal to percussion Auscultation: normal bowel sounds Rectal Exam - Male: Yes deferred Skin General skin exam: no rashes or lesions noted, turgor normal, skin not dry, no jaundice, No spider nevi and no striae Rashes: no rashes Nails: normal Neuro General: oriented to person, oriented to place and oriented to time Cranial nerves: Yes Equal, round and reactive pupils present and Yes Normal hearing present Speech: No Abnormal speech present Sensory Exam: Sensory deficit (Neuro) Extrem General: No clubbing, No cyanosis, No edema and Yes muscle atrophy Psych Appearance: grossly normal and well kempt Mental Status: mental status grossly normal Speech and movement: Normal speech and movement present Affect: normal affect Attitude: cooperative Thought process: Normal thought process present and not confabulating Thought content: Normal thought content present Insight: Fair insight present (Psych) Judgement: Fair judgement present (Psych) Assessment & Plan Assessment & Plan (1) Chronic idiopathic constipation: Code(s): K59.04 - Chronic idiopathic constipation Category: Medical (2) Tubular adenoma of colon: Comment: 03/2025 scope= 3 TA is repeat in 3 years Code(s): D12.6 - Benign neoplasm of colon, unspecified Category: Medical (3) Abdominal cramping: Code(s): R10.9 - Unspecified abdominal pain Category: Medical Plan - The patient is a 64-year-old male presenting with bowel dysfunction related to a spinal cord injury. - Reports sphincter dysfunction related to spinal cord injury, with no known mechanical blockage per previous colonoscopy in February. - He experienced meningitis in [id number], leading to significant health consequences. - Currently on Linzess 290 mcg, Caitlyn, and dicyclomine with improvement in bowel regularity . - Denies diarrhea on current medication regimen. - Reports decreased cramping and improved abdominal bloating with current treatment. - Continue current medical regimen including Linzess 290 mcg, [place], and dicyc lomine. - Consider biofeedback in future if patient is inclined, but currently avoiding due to past patient beliefs on its effectiveness. - No surgical intervention is recommended due to potential for incontinence. - Follow-up planned for six months; patient to reach out if symptoms change or concerns arise prior to this appointment. Patient was informed and verbally consented to the use of an ambient scribe for clinic note documentation during this visit. Medications: Refilled linaclotide (Linzess) 290 mcg PO QAM 30 caps 6RF 30 days K59.04 - Chronic idiopathic constipation sennosides (senna) 17.2 mg (2 x 8.6 mg) PO BEDTIME 60 tabs 6RF constipation K59.04 - Chronic idiopathic constipation dicyclomine 20 mg PO QID PRN 120 tabs 6RF abdominal pain 30 days R10.9 - Unspecified abdominal pain Coding Level of Care Code Est Pt Level 3 (03938) Diagnoses Chronic idiopathic constipation K59.04 Tubular adenoma of colon D12.6 Abdominal cramping R10.9
[2025-06-07 10:57] VITALS: BP 101/51; PULSE 67
--- OUTSIDE RECORDS SUMMARY | 2025-06-07 12:25 | XMS_ITS | Encounter Summary ---
Author Organization [email or web address] Address [address] [facility] [address] [place] [address] Care Team Providers Care Color Paste Mixing Supervisor Name Role Phone Kaylah Foley MD Primary Care Provider + Reason for Visit * Reason Comments Med Refill Encounter Details Date Type Department Care Team ([facility] st Contact Info) Description 05/16/2024 Refill [facility] [address] [place], [place] [phone] Erum Scott MD [address] [place], [place] [phone] Flaccid paraplegia (CMS/HCC) Social History Tobacco Use [...] Description 06/21/2025 11:45 AM EDT Office Visit [facility] [address] [place] [phone] Kaylah Foley MD [address] [place] [address] 06/22/2025 9:30 AM EDT Telemedicine [address] [address] Arlet Quijano, ROBERT documented as of this encounter Visit Diagnoses Diagnosis Flaccid paraplegia (CMS/HCC) Paraplegia documented in this encounter Additional Health Concerns Assessment Noted Time PHQ-9 Depression Total Score: 3 10/07/20 23 9:51 AM EST documented as of this encounter Care Teams Color Paste Mixing Supervisor Relationship Specialty Start Date End Date Kaylah Foley MD [address] [place] [phone] PCP - General Family Medicine 06/02/17 documented as of this encounter
== END 2025-06-07 11:41 | disposition home or self-care (01) ==
LOC: HO.HGI 10:54
PROVIDERS: PCP Internal Medicine; Visit Provider Nurse Practitioner
DX: K59.04 Chronic idiopathic constipation (principal); D12.6 Benign neoplasm of colon, unspecified; R10.9 Unspecified abdominal pain
CPT/HCPCS: 99213

== ENCOUNTER → 2025-06-07 10:53 | Outpatient (BNVA) | payer OTHER, SELFPAY | PROVIDERS: PCP Internal Medicine; Visit Provider Nurse Practitioner | DX: K59.04 Chronic idiopathic constipation (principal); G82.20 Paraplegia, unspecified; D12.6 Benign neoplasm of colon, unspecified; R10.9 Unspecified abdominal pain | CPT/HCPCS: 99212 ==

== ENCOUNTER 2025-06-26 13:18 | Outpatient (AMB) | payer MEDICARE, SELFPAY ==
--- OUTSIDE RECORDS SUMMARY | 2025-06-21 11:45 | XMS_ITS | Encounter Summary ---
Author Organization [email or web address] Address [address] [facility] [address] [place] [address] Care Team Providers Care Material Control Analyst Name Role Phone Kaylah Foley MD Primary Care Provider + Encounter Details Date Type Department Care Team (Latest Contact Info) Description 06/21/2025 11:45 AM EDT Office Visit [facility] [address] [place], [place] [phone] Kaylah Foley MD [address] [place], [place] [phone] Long-term current use of benzodiazepine (Primary Dx); On continuous oral anticoagulation; Tubular adenoma of colon; Mixed anxiety and depressive disorder Social History [...] Sign Reading Time Taken Comments Blood Pressure 84/58 06/21/2025 11:56 AM EDT Pulse 64 06/21/2025 11:56 AM EDT Temperature 35.6 C (96.1 F) 06/21/2025 11:56 AM EDT Respiratory Rate 24 06/21/2025 11:56 AM EDT Oxygen Saturation - - Inhaled Oxygen Concentration - - Weight - - Height - - Body Mass Index - - documented in this encounter Plan of Treatment Upcoming Encounters Date Type Department Care Team (Late st Contact Info) Description 08/24/2025 1:30 PM EST Telemedicine [facility] [address] [place] [address] Arlet Quijano, ROBERT 10/29/2025 3:30 PM EST Office Visit [facility] [address] [place] [address] Luisana Dhillon OD [address] [place] [address] documented as of this encounter Visit Diagnoses Diagnosis Long-term current use of benzodiazepine- Primary On continuous oral anticoagulation Tubular adenoma of colon Benign neoplasm of colon Mixed anxiety and depressive disorder Dysthymic disorder documented in this encounter Additional Health Concerns Assessment Noted Time PHQ-9 Depression Total Score: 3 10/07/20 23 9:51 AM EST documented as of this encounter Care Teams Material Control Analyst Relationship Specialty Start Date End Date Kaylah Foley MD [address] [place] [phone] PCP - General Family Medicine 06/02/17 documented as of this encounter
--- OUTSIDE RECORDS SUMMARY | 2025-06-22 09:30 | XMS_ITS | Encounter Summary ---
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 MEDICINE [address] [place], [place] [phone] Arlet Quijano RN Long-term current use of benzodiazepine Social History Tobacco Use Types Packs/Day Years Used Date Smoking Tobacco: Former Cigarettes Q uit: 2004 Passive Smoke Exposure: Past Alcohol Use Standard [...] AM EDT documented as of this encounter Progress Notes * Arlet Quijano RN - 06/22/2025 9:30 AM EDT SUBJECTIVE: Erasmo Moscoso is a 64 y.o. 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 Pt stated sometimes he will only take a 1/2 dose in the morning and/or a 1/2 dose at night. The patient last took Clonazepam (Klonopin) on: 06/22/2025 Medication effective: Yes Sleep habits: well Therapist: Denies therapist and declines referral OBJECTIVE: PARTS DEPARTMENT SUPERVISOR checked: 06/22/2025 Pill count completed for Clonazepam (Klonopin), patient reports count today is 39 , anticipated count should be 35, this is as expected. 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 Long-term current use of benzodiazepine PLAN: Information on acupuncture given: Previously discussed Narcan education provided: Previously discussed Narcan prescription: active Erasmo Moscoso will continue taking medication as prescribed and follow up at the next TeleT visit or sooner if needed. Erasmo Moscoso has verbalized understanding of care plan. Future Appointments Date Time Provider Department Center 06/22/2025 9:30 AM Arlet Quijano RN MEDICINE [facility] 08/24/2025 1:30 PM Arlet Quijano RN MEDICINE [facility] Arlet Quijano RN [1] Current Outpatient Medications: clonazePAM (KlonoPIN) 0.5 MG tablet, TAKE 1 TABLET BY MOUTH TWICE DAILY IN THE MORNING AND AT BEDTIME NEEDED FOR ANXIETY FOR UP TO 28 DAYS, Disp: 56 tablet, Rfl: 0 apixaban (Eliquis) 2.5 MG tablet, Take 1 tablet (2.5 mg) by mouth 2 times daily. DC warfarin, Disp:60 tablet, Rfl: 11 Ascorbic Acid (vitamin C) 500 MG tablet, Take 1,000 mg by mouth in the morning., Disp: , Rfl: fosfomycin (Monurol) 3 g packet, TAKE 1 PACKET ORALLY ONCE WEEKLY FOR UTI SUPPRESSION FOR 12 WEEKS,Disp: , Rfl: Lactobacillus-Inulin (CULTURELLE DIGESTIVE DAILY PO), Take by mouth., Disp: , Rfl: lidocaine (Uro-Jet) 2 % gel, Insert into the urethra Every 6-8 hours as needed for mild pain., Disp: 500 mL, Rfl: 11 lidocaine 2 % gel, INSERT IN URETHRA EVERY 6 TO 8 HOURS DIRECTED NEEDED FOR MILD PAIN, Disp: 500 mL, Rfl: 11 naloxone (Narcan) 4 mg/0.1 mL nasal spray, Administer 1 spray (4 mg) into affected nostril(s) if needed for opioid reversal. May repeat every 2-3 minutes if needed, alternating nostrils, until medical assistance becomes available., Disp: 2 each, Rfl: 3 polycarbophil (Fibercon) 625 MG tablet, Take 1 tablet (625 mg) by mouth 2 times daily., Disp: 60 tablet, Rfl: 11 zolpidem (Ambien) 5 MG tablet, TAKE 1 TABLET BY MOUTH AT BEDTIME NEEDED for SLEEP, Disp: 28 tablet, Rfl: 0 documented in this encounter Plan of Treatment Upcoming Encounters Date Type Department Care Team (Late st Contact Info) Description 08/24/2025 1:[address] [facility] [address] [place] [address] Arlet Quijano RN 10/29/2025 3:30 PM EST Office Visit [facility] OPTOMETRY [address] [place] [address] Luisana Dhillon OD [address] [place] [address] documented as of this encounter Visit Diagnoses Diagnosis Long-term current use of benzodiazepine documented in this encounter Additional Health Concerns Assessment Noted Time PHQ-9 Depression Total Score: 3 10/07/20 23 9:51 AM EST documented as of this encounter Care Teams Car Body Inspector Relationship Specialty Start Date End Date Kaylah Foley MD [address] [place] [address] PCP - General Family Medicine 06/02/17 documented as of this encounter
--- NOTE | 2025-06-26 13:23 | MHC.OFFVIS ---
Intake Visit Reasons: 3m follow up Intake Note: Patient is present for 3M F/U Urology Medication:VITAMIN C,OXYBUTYNIN Antibiotic Allergy:NONE Blood Thinner:APIXABAN Stop Attacher Required: No Stop Attacher Services: Stop Attacher Present Stop Attacher Name: WILFRED GREEN-CMJh Allergies No Known Allergies Allergy (Mild, Verified 06/26/25 14:01) NOT APPLICABLE Medication List - Last Reconciled 06/26/25 by ALBERT SalcidoP-BC apixaban (Eliquis) 2.5 mg PO BID ascorbic acid (vitamin C) (Vitamin C) 1,000 mg (2 x 500 mg) PO DAILY 90 days calcium polycarbophil (Fiber-Lax) mg PO clonazepam 0.5 mg PO BID lanolin naeqmtt-zu-w.pet-ceres (Minerin Creme topical) appl topical BID lidocaine HCl 2% mL topical TID linaclotide (Linzess) 290 mcg PO QAM 30 days lorazepam (Ativan) 1 mg PO TID PRN oxybutynin chloride ER 5 mg PO DAILY 90 days phenazopyridine (Pyridium) 200 mg PO TID PRN 5 days polyethylene glycol 3350 (Gavilax) 17 grams PO DAILY Held on 04/11/25. Instructions: Doctor's Order [PROBIOTIC PO] sennosides (senna) 17.2 mg (2 x 8.6 mg) PO BEDTIME zolpidem 5 mg PO BEDTIME PRN HPI Comments Details: Erasmo is a very pleasant 64 year-old Niuean speaking male patient of Dr. Foley. He has a PMH of paraplegia, DVT on Coumadin, urinary tract infections, meningitis, neurogenic bladder, and renal cysts. He presents to the office today for follow-up of his neurogenic bladder, recurrent urinary tract infections and lower urinary tract symptoms. In discussion with the patient today he reports compliance with methenamine, vitamin-C, and oxybutynin. He discusses noting cloudy urine over the last few weeks and believes he might have a urinary tract infection. He reports having followed up with urgent care and was given a prescription for levofloxacin 750 mg daily and is requesting refill as he feels this is what he needs. In office urinalysis results reviewed with the patient today 2+ leukocytes negative nitrates. He discusses if he does not drink water daily upon CIC he experiences sediment when performing CIC. However he describes when he drinks water daily he does not have sediment when performing CIC. We did discuss at length bladder health. He reports his main concern is pain with catheterizations. He continues to CIC 6-8 times per day depending on p.o. intake. All questions were answered. We discussed potential causes of recurrent urinary tract infections. Previous workup has included CT results 08/10 numerous left renal simple cyst. Left lower pole cortical thinning and scarring. Otherwise, the kidneys are normal in size, shape, and attenuation. No hydronephrosis, hydroureter, or calculi seen bilaterally. The bladder is unremarkable. He reports at times he still is able to urinate independently without catheterization. PSAs are as follows: 07/05 0.8, 09/06 0.8, 04/11 0.7 He otherwise denies hematuria, dysuria, foul smelling urine, flank pain, fever, and or chills. PREVIOUS OFFICE NOTE: Neurogenic bladder Clean intermittent catheterization 4-5 times per day - straight catheter no coude - will require self catheterization for the foreseeable future Does have occasional UTI Prior ultrasound with renal cysts on left kidney Procedure - 07/09 TUIP PSA 2020 0.8 Infection protection-vitamin C and methanamine. PENDING SALE TO [facility] Medical History Pre-op examination Paraplegia DVT (deep venous thrombosis) Colon cancer screening UTI (urinary tract infection) Hx of meningitis Renal cyst, acquired Neurogenic bladder Surgical History History of cystoscopy (05/19/22) History of colonoscopy H/O abdominal surgery Social History Housing: Apartment Patient Tobacco Use Status: Former Tobacco user Review of Systems Const Reports no additional complaints Eyes Reports no additional complaints ENT Reports no additional complaints Card Reports as per HPI Resp Reports no additional complaints GI Reports no additional complaints Reports as per HPI Musc Reports as per HPI Neuro Reports as per HPI Psych Reports no additional complaints Endo Reports no additional complaints Walker/Lymph Reports as per HPI Aller/Immun Reports no additional complaints Physical Exam Const General: cooperative, healthy appearing, comfortable, no acute distress, well developed, alert and awake Orientation/consciousness: patient oriented x3 Limitations: language barrier and wheelchair HEENT Head: Yes normal to inspection Eyes General: appearance normal, both eyes and all related structures Neck Neck: Yes normal visual inspection Chest Chest palpation & inspection: normal inspection of the chest Resp Effort & Inspection: normal respiratory effort Cardio Rate: regular rate GI Inspection: Yes normal to inspection General: Yes no CVA tenderness Back/Spine/Pelvis Back: no CVA tenderness Skin General skin exam: no rashes or lesions noted Neuro General: patient oriented x3 Extrem General: Yes normal to inspection Psych Appearance: grossly normal and well kempt Speech and movement: Clear speech present Attitude: cooperative Thought process: Normal thought process present Thought content: Normal thought content present Insight: Fair insight present (Psych) Judgement: Fair judgement present (Psych) Results AMB Urinalysis, Automated UA Leukoctes 125 Chey/uL Last Edit by Vahe Funes [facility] on 06/26/25 16:08 UA Nitrite Negative Last Edit by Vahe Funes [facility] on 06/26/25 16:08 UA Urobilinogen 0.2 mg/dL Last Edit by Vahe Funes [facility] on 06/26/25 16:08 UA Protein 0 mg/dL Last Edit by Vahe Funes [facility] on 06/26/25 16:08 UA pH 6.0 Last Edit by Vahe Funes [facility] on 06/26/25 16:08 UA Blood 0 Yuval/uL Last Edit by Vahe Funes [facility] on 06/26/25 16:08 UA Specific [place] 1.015 Last Edit by Vahe Funes [facility] on 06/26/25 16:08 UA Ketone Negative Last Edit by Vahe Funes [facility] on 06/26/25 16:08 UA Bilirubin 0 mg/dL Last Edit by Vahe Funes [facility] on 06/26/25 16:08 UA Glucose 0 mg/dL Last Edit by Vahe Funes [facility] on 06/26/25 16:08 Results Reviewed Results Reviewed: Laboratory Last Values Urine pH (Auto) 6.0 06/26/25 16:08 Specific [place] (Auto) 1.015 06/26/25 16:08 Urine Protein (Auto) 0 mg/dL 06/26/25 16:08 Glucose (UA)(Auto) 0 mg/dL 06/26/25 16:08 Urine Ketones (Auto) Negative 06/26/25 16:08 Urine Blood (Auto) 0 Yuval/uL 06/26/25 16:08 Urine Nitrite (Auto) Negative 06/26/25 16:08 Urine Bilirubin (Auto) 0 mg/dL 06/26/25 16:08 Urine Urobilinogen (Auto) 0.2 mg/dL 06/26/25 16:08 Leukocyte Esterase (Auto) 125 Chey/uL 06/26/25 16:08 Date of Service: 04/10/25 Procedure(s): CT abdomen pelvis wo IV con Findings: Basilar subsegmental atelectasis or pleural-parenchymal scarring is present. The gallbladder and solid organs are within normal limits. No renal stones. Probable cysts are noted in the left kidney. No bowel obstruction, pneumoperitoneum, or pneumatosis. Pelvic contents unremarkable. Normal appendix. The bones are osteopenic. Old superior endplate compression deformity of L1 noted. Pain pump noted in the right lower quadrant subcutaneous fat IMPRESSION: No acute findings. Assessment & Plan Assessment & Plan (1) Neurogenic bladder: Code(s): N31.9 - Neuromuscular dysfunction of bladder, unspecified Category: Medical (2) Recurrent UTI (urinary tract infection): Code(s): N39.0 - Urinary tract infection, site not specified Category: Medical (3) Prostate stricture: Code(s): N42.89 - Other specified disorders of prostate Category: Medical Plan In office urinalysis results reviewed with the patient today; will send for urine cytology as well as urine culture; will await results for potential treatment. We discussed bladder health at length. Continue to CIC as discussed. We did discussed the importance of adequate hydration in relation to recurrent urinary tract infections as well as overall health and well-being. We did discussed further treatment options of recurrent urinary tract infections as well as neurogenic bladder; we discussed risks and benefits of these interventions. All questions were answered. Continue methenamine and vitamin-C. Follow-up in 3-6 months; or sooner with any issues, concerns, and or questions. Orders: Orders Urine Cytology 06/26/25 N39.0 - Urinary tract infection, site not specified AMB Urinalysis Automated 06/26/25 Z13.9 - Encounter for screening, unspecified Patient Instructions: The patient had an opportunity to ask questions regarding the treatment plan. All questions were answered. Physical exam, labs, and imaging were discussed and reviewed in detail. As well as risks, benefits, and discussion of treatment choices. No major barriers to understanding were identified. The patient expressed understanding and agreement with the above treatment plan. The patient was made aware they should contact our office by phone for worsening of their current condition, the appearance of new symptoms, or with any questions or concerns. Compliance is encouraged with any medications and follow up testing that is ordered. It is a privilege to be allowed the opportunity to participate in? your urological care.? Again, if you have any questions or concerns If you have any questions or concerns please do not hesitate to contact me. The office is [phone]. This note is constructed using voice recognition software. While every effort has been made to ensure accuracy cupola operator insulation errors may have been included. Yours sincerely, RINKU Salcido Coding Level of Care Code Est Pt Level 3 (44908) Complex EM visit Add On G2211 Diagnoses Neurogenic bladder N31.9 Recurrent UTI (urinary tract infection) N39.0 Prostate stricture N42.89
--- OUTSIDE RECORDS SUMMARY | 2025-06-26 15:41 | XMS_ITS | Encounter Summary ---
Author Organization [employer] Address [address] [facility] 7t [place] [address] Care Team Providers Care Cloth Finishing Range Operator Name Role Phone Kaylah Foley MD Primary Care Provider + Reason for Visit * Reason Comments Med Refill Encounter Details Date Type Department Care Team ([facility] st Contact Info) Description 09/28/2023 Refill [facility] MEDICINE [address] [place], [place] [phone] Kaylah Foley MD [address] [place], [place] [phone] Flaccid paraplegia (CMS/HCC) Social History Tobacco Use [...] Info) Description 08/24/2025 1:30 PM EST Telemedicine [facility] MEDICINE [address] [place] [address] Arlet Quijano RN 10/29/2025 3:30 PM EST Office Visit [facility] OPTOMETRY [address] [place] [address] TarLuisana valdez, OD [address] [place] [address] documented as of this encounter Visit Diagnoses Diagnosis Flaccid paraplegia (CMS/HCC) Paraplegia documented in this encounter Additional Health Concerns Assessment Noted Time PHQ-9 Depression Total Score: 1 08/19/20 23 9:39 AM EDT documented as of this encounter Care Teams Cloth Finishing Range Operator Relationship Specialty Start Date End Date Kaylah Foley MD [address] [place] [id number] PCP - General Family Medicine 06/02/17 documented as of this encounter
--- OUTSIDE RECORDS SUMMARY | 2025-06-26 15:41 | XMS_ITS | Encounter Summary ---
Author Organization [employer] Address [address] [facility] 7[address] [place] [address] Care Team Providers Care Building Maintenance Custodian Name Role Phone Kaylah Foley MD Primary Care Provider + Reason for Visit * Reason Comments Med Refill Encounter Details Date Type Department Care Team ([facility] st Contact Info) Description 05/08/2024 Refill [facility] CHC MED & PEDS [address] [place], [place] [phone] Kaylah Foley MD [address] [place], [place] [phone] Anxiety Social History Tobacco Use Types Packs/Day [...] Info) Description 08/24/2025 1:30 PM EST Telemedicine [facility] MEDICINE [address] [place] [address] Arlet Quijano RN 10/29/2025 3:30 PM EST Office Visit [facility] OPTOMETRY [address] [place] [address] Luisana Dhillon, OD [address] [place] [address] documented as of this encounter Visit Diagnoses Diagnosis Anxiety Anxiety state, unspecified documented in this encounter Additional Health Concerns Assessment Noted Time PHQ-9 Depression Total Score: 3 10/07/20 23 9:51 AM EST documented as of this encounter Care Teams Building Maintenance Custodian Relationship Specialty Start Date End Date Kaylah Foley MD [address] [place] [address] PCP - General Family Medicine 06/02/17 documented as of this encounter
--- OUTSIDE RECORDS SUMMARY | 2025-06-26 15:41 | XMS_ITS | Encounter Summary ---
Author Organization [employer] Address [address] [facility] 7t [place] [address] Care Team Providers Care Lap Layer Name Role Phone Kaylah Foley MD Primary Care Provider + Reason for Visit * Reason Onset Date Comments Medication Question 07/05/2024 Encounter Details Date Type Department Care Team ([facility] st Contact Info) Description 07/05/2024 Telephone [facility] MEDICINE [address] [place], [place] [phone] Kaylah Foley MD [address] [place], [place] [phone] Medication Question Social History Tobacco Use Types [...] encounter Miscellaneous Notes * Telephone Encounter - lEma Taylor - 07/05/2024 9:15 AM EDT Tc from pt requesting to see if pcp can prescribe medication phenazopyridine. States had gotten it at the ER 06/29/24 and has no more pills at this time. Please call pt to clarify. documented in this encounter Plan of Treatment Upcoming Encounters Date Type Department Care Team (Late st Contact Info) Description 08/24/2025 1:30 PM EST Telemedicine [facility] MEDICINE [address] [place] [address] Arlet Quijano RN 10/29/2025 3:30 PM EST Office Visit [facility] OPTOMETRY [address] [place] [address] Luisana Dhillon, OD [address] [place] [address] documented as of this encounter Visit Diagnoses Not on filedocumented in this encounter Additional Health Concerns Assessment Noted Time PHQ-9 Depression Total Score: 3 10/07/20 23 9:51 AM EST documented as of this encounter Care Teams Lap Layer Relationship Specialty Start Date End Date Kaylah Foley MD [address] [place] [address] PCP - General Family Medicine 06/02/17 documented as of this encounter
--- OUTSIDE RECORDS SUMMARY | 2025-06-26 15:41 | XMS_ITS | Encounter Summary ---
Author Organization [employer] Address [address] [facility] 7t [place] [address] Care Team Providers Care Aerospace Engineer Name Role Phone Kaylah Foley MD Primary Care Provider + Encounter Details Date Type Department Care Team ([facility] st Contact Info) Description 08/18/2024 Orders Only [facility] MEDICINE [address] [place], [place] [phone] Kaylah Foley MD [address] [place], [place] [phone] Mixed anxiety and depressive disorder (Primary Dx) [...] Info) Description 08/24/2025 1:30 PM EST Telemedicine [facility] MEDICINE [address] [place] [address] Arlet Quijano RN 10/29/2025 3:30 PM EST Office Visit [facility] OPTOMETRY [address] [place] [address] Luisana Dhillon, OD [address] [place] [address] documented as of this encounter Visit Diagnoses Diagnosis Mixed anxiety and depressive disorder- Primary Dysthymic disorder documented in this encounter Additional Health Concerns Assessment Noted Time PHQ-9 Depression Total Score: 3 10/07/20 23 9:51 AM EST documented as of this encounter Care Teams Aerospace Engineer Relationship Specialty Start Date End Date Kaylah Foley MD [address] [place] [address] PCP - General Family Medicine 06/02/17 documented as of this encounter
--- OUTSIDE RECORDS SUMMARY | 2025-06-26 15:41 | XMS_ITS | Encounter Summary ---
Author Organization [employer] Address [address] [facility] 7t [place] [address] Care Team Providers Care Commercial Construction Superintendent Name Role Phone Kaylah Foley MD Primary Care Provider + Reason for Visit * Reason Comments Med Refill Encounter Details Date Type Department Care Team ([facility] st Contact Info) Description 09/29/2023 Refill [facility] MEDICINE [address] [place], [place] [phone] Kaylah Foley MD [address] [place], [place] [phone] Flaccid paraplegia (CMS/HCC) Social History Tobacco Use [...] Info) Description 08/24/2025 1:30 PM EST Telemedicine [facility] MEDICINE [address] [place] [address] Arlet Quijano RN 10/29/2025 3:30 PM EST Office Visit [facility] OPTOMETRY [address] [place] [address] TarLuisana valdez, OD [address] [place] [address] documented as of this encounter Visit Diagnoses Diagnosis Flaccid paraplegia (CMS/HCC) Paraplegia documented in this encounter Additional Health Concerns Assessment Noted Time PHQ-9 Depression Total Score: 1 08/19/20 23 9:39 AM EDT documented as of this encounter Care Teams Commercial Construction Superintendent Relationship Specialty Start Date End Date Kaylah oFley MD [address] [place] [id number] PCP - General Family Medicine 06/02/17 documented as of this encounter
--- OUTSIDE RECORDS SUMMARY | 2025-06-26 15:41 | XMS_ITS | Encounter Summary ---
Author Organization [employer] [facility] Address [address] [place] [address] 7t [place] [address] Care Team Providers Care Coding Compliance Specialist Name Role Phone Kaylah Foley MD Primary Care Provider + Reason for Visit * Reason Comments Med Refill Encounter Details Date Type Department Care Team (Late st Contact Info) Description 02/04/2023 Refill [facility] [address] [place] [address] Kaylah Foley MD [address] [place] [address] Anxiety Social History Tobacco Use Types Packs/Day [...] Info) Description 08/24/2025 1:30 PM EST Telemedicine [facility] MEDICINE [address] [place] [address] Arlet Quijano RN 10/29/2025 3:30 PM EST Office Visit [facility] OPTOMETRY [address] [place] [address] Luisana Dhillon, OD [address] [place] [address] documented as of this encounter Visit Diagnoses Diagnosis Anxiety Anxiety state, unspecified documented in this encounter Care Teams Coding Compliance Specialist Relationship Specialty Start Date End Date Kayalh Foley MD [address] [place] [address] PCP - General Family Medicine 06/02/17 documented as of this encounter
--- OUTSIDE RECORDS SUMMARY | 2025-06-26 15:41 | XMS_ITS | Encounter Summary ---
Author Organization [email or web address] Address [address] [facility] [address] [place] [address] Care Team Providers Care Plastics Patternmaker Name Role Phone Kaylah Foley MD Primary Care Provider + Encounter Details Date Type Department Care Team (Late st Contact Info) Description 09/13/2023 Abstract [facility] [address] [place], [place] [phone] Brenda Thompson Social History Tobacco Use Types [...] t he electric, gas, oil or water [employer] threatened to shut off services in your [...] Info) Description 08/24/2025 1:30 PM EST Telemedicine [facility] [address] [place] [address] Arlet Quijano, ROBERT 10/29/2025 3:30 PM EST Office Visit [facility] [address] [place] [address] Luisana Dhillon, OD [address] [place] [address] documented as of this encounter Visit Diagnoses Not on filedocumented in this encounter Additional Health Concerns Assessment Noted Time PHQ-9 Depression Total Score: 1 08/19/20 23 9:39 AM EDT documented as of this encounter Care Teams Plastics Patternmaker Relationship Specialty Start Date End Date Kaylah Foley MD [address] [place] [id number] PCP - General Family Medicine 06/02/17 documented as of this encounter
--- OUTSIDE RECORDS SUMMARY | 2025-06-26 15:41 | XMS_ITS | Encounter Summary ---
Author Organization [employer] Address [address] [facility] [address] [place] [address] Care Team Providers Care Textile Machine Operator Name Role Phone Kaylah Foley MD Primary Care Provider + Encounter Details Date Type Department Care Team (Latest Contact Info) Description 06/22/2025 Travel Social History Tobacco Use Types Packs/Day Years [...] Info) Description 08/24/2025 1:30 PM EST Telemedicine [facility] MED[facility]INE [address] [place] [address] Arlet Quijano RN 10/29/2025 3:30 PM EST Office Visit [facility] [address] [place] [address] Luisana Dhillon, OD [address] [place] [address] documented as of this encounter Visit Diagnoses Not on filedocumented in this encounter Additional Health Concerns Assessment Noted Time PHQ-9 Depression Total Score: 3 10/07/20 23 9:51 AM EST documented as of this encounter Care Teams Textile Machine Operator Relationship Specialty Start Date End Date Kaylah Foley MD [address] [place] [address] PCP - General Family Medicine 06/02/17 documented as of this encounter
--- OUTSIDE RECORDS SUMMARY | 2025-06-26 15:41 | XMS_ITS | Encounter Summary ---
Author Organization [employer] Address [address] [facility] [address] [place] [address] Care Team Providers Care Ecommerce Marketing Manager Name Role Phone Kaylah Foley MD Primary Care Provider + Reason for Visit * Reason Comments Med Refill Encounter Details Date Type Department Care Team ([facility] st Contact Info) Description 04/17/2025 Refill [facility] [address] [place], [place] [phone] Kaylah Foley MD [address] [place], [place] [phone] Mixed anxiety and depressive disorder Social History [...] enough money to get more: Never True 01/ 04/2025 Transportation Answer Date Recorded In the [...] Info) Description 08/24/2025 1:30 PM EST Telemedicine [facility] [address] [place] [address] Arlet Quijano, ROBERT 10/29/2025 3:30 PM EST Office Visit [facility] [address] [place], [place] [phone] Luisana Dhillon, OD [address] [place] [address] documented as of this encounter Visit Diagnoses Diagnosis Mixed anxiety and depressive disorder Dysthymic disorder documented in this encounter Additional Health Concerns Assessment Noted Time PHQ-9 Depression Total Score: 3 10/07/20 23 9:51 AM EST documented as of this encounter Care Teams Ecommerce Marketing Manager Relationship Specialty Start Date End Date Kaylah Foley MD [address] [place] [address] PCP - General Family Medicine 06/02/17 documented as of this encounter
--- OUTSIDE RECORDS SUMMARY | 2025-06-26 15:41 | XMS_ITS | Clinical Summary ---
Author Organization [employer] Address [address] [facility] [address] [place] [address] Care Team Providers Care Political Science Instructor Name Role Phone Kaylah Foley MD Primary Care Provider + Allergies No known active allergies Medications * This document contains information received from the source organization and may not represent a complete record from that organization. Ascorbic Acid (vitamin C) 500 MG tablet Take 1,000 mg by mouth in the morning. 023 Active polycarbophil (Fibercon) 625 MG tablet Take 1 tablet (625 mg) by mouth 2 times daily. 60 tablet 11 024 2024 Active fosfomycin (Monurol) 3 g packet TAKE 1 PACKET ORALLY ONCE WEEKLY FOR UTI SUPPRESSION FOR 12 WEEKS 024 Active Lactobacillus-Inu hilario (CULTURELLE DIGESTIVE DAILY PO) Take by mouth. Activ e apixaban (Eliquis) 2.5 MG tablet Take 1 tablet (2.5 mg) by mouth 2 times daily. DC warfarin 60 tablet 11 024 Active lidocaine 2 % gelIndications:Po stprocedural male urethral stricture INSERT IN URETHRA EVERY 6 TO 8 HOURS DIRECTED NEEDED FOR MILD PAIN 500 mL 11 025 Active lidocaine (Uro-Jet) 2 % gel Insert into the urethra Every 6-8 hours as needed for mild pain. 500 mL 11 025 Active naloxone (Narcan) 4 mg/0.1 mL nasal sprayIndications: Long-term current use of benzodiazepine Administer 1 spray (4 mg) into affected nostril(s) if needed for opioid reversal. May repeat every 2-3 minutes if needed, alternating nostrils, until medical assistance becomes available. 2 each 3 025 2025 Active zolpidem (Ambien) 5 MG tablet TAKE 1 TABLET BY MOUTH AT BEDTIME NEEDED for SLEEP 28 tablet Active clonazePAM (KlonoPIN) 0.5 MG tabletIndications :Mixed anxiety and depressive disorder TAKE 1 TABLET BY MOUTH TWICE DAILY IN THE MORNING AND AT BEDTIME NEEDED FOR ANXIETY FOR UP TO 28 DAYS 56 tablet 025 2024 Active clonazePAM (KlonoPIN) 0.5 MG tabletIndications :Mixed anxiety and depressive disorder Take 1 tablet (0.5 mg) by mouth if needed in the morning and at bedtime for anxiety for up to 28 days. 56 tablet 025 2024 Discontinued sulfamethoxazole- trimethoprim (Bactrim DS) 800-160 MG tablet Take 1 tablet by mouth 2 times daily for 7 days. 14 tablet 025 2024 Active Problems Problem Noted Date Diagnosed Date Tubular adenoma of colon 06/21/2025 Long-term current use of benzodiazepine 04/09/20 25 On continuous oral anticoagulation 10/24/2024 Assessment & [...] will be transported to ER via ambulance. 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 He is wheelchair-bound and self caths several times per day He needs assistance on all ADLs although he tries to be independent. Advised to continue exercise, continue with ACCESS DIRECTOR therapies We discussed about skin moisturizing, change position to prevent pressure sores. 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 Due to wheelchair bound condition, he cont be at risk of DVT. 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 No need for addtl opiate refills for now. FU w me in 6w. Anticoagulated on Coumadin 08/24/2023 0 10/24/2024 Assessment [...] off anticoagulant. 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 If not needed will continue oxycontin [...] cont slow taper and will FU with [employer] nurse We have done [employer] education re [...] not be replaced if lost or stolen. Suprapubic pain 08/18/2023 08/18/2023 04/03/2025 Stye 08/13/2023 01/10/2024 Assessment & Plan (08/13/2023 5:24 PM EDT): Noted likely stye in lower eyelid of left eye -advised eye lubricants -warm compresses Urinary tract infectious disease 06/15/2018 08/18/20 23 04/03/2025 Assessment & Plan (06/27/2024 12:38 PM EDT): - doing well on Levofloxacin - f/u PRN Assessment & Plan (08/19/2023 10:31 AM EDT): Doing better on cefuroxime Cont antibiotic to complete 10 days, urine culture reviewed, he's improving clinically Cont self catheter Reconsult PRN Lower urinary tract symptoms 04/04/2018 01/10/2024 Visual impairment 04/04/2018 05/04/2025 Assessment & Plan (06/02/2024 3:52 PM EDT): Ophthalmology evaluation UTD Fu in 6w when he's off opiates, will decide on addtl eval. Encounters Date Type Department Care Team Description 06/22/2025 9:30 AM EDT Telemedicine [facility] [address] [place] [phone] Arlet Quijano RN Long-term current use of benzodiazepine 06/22/2025 Travel 06/21/2025 11:45 AM EDT Office Visit [facility] [address] [place] [address] Kaylah Foley MD Long-term current use of benzodiazepine (Primary Dx); On continuous oral anticoagulation; Tubular adenoma of colon; Mixed anxiety and depressive disorder 06/21/2025 Travel 06/20/[address] [facility] [address] [place] [address] Kaylah Foley MD chart prep 06/11/2025 8:40 AM EDT Office Visit [facility] [address] [place] [address] Yanci Boyd MD UTI symptoms 06/11/[address] [facility] [address] [place] [address] Kaylah Foley MD Mixed anxiety and depressive disorder 06/11/2025 Travel 05/16/[address] [facility] [address] [place] [address] Kaylah Foley MD Mixed anxiety and depressive disorder 05/03/[address] [facility] [address] [place], [place] [phone] Kaylah Foley MD 04/26/2025 3:30 PM EDT Office Visit [facility] [address] [place] [phone] Tarka, Luisana, OD Combined forms of age-related cataract of both eyes (Primary Dx); Dry eyes, bilateral; Presbyopia 04/26/2025 Travel 04/24/2025 9:00 AM EDT Office Visit [facility] [address] [place] [phone] Angela Reed DO Blurred vision (Primary Dx); Complicated UTI (urinary tract infection); Hypotension, unspecified hypotension type 04/24/2025 Orders Only GENERIC EXTERNAL DATA DEPARTMENT Provider, Generic External Data 04/24/[address] [facility] [address] [address] Angela Reed DO 04/24/2025 Travel 04/23/[address] [facility] [address] [place] [phone] Kaylah Foley MD Nurse Triage 04/17/[address] [facility] [address] [place], [place] [phone] Kaylah Foley MD Mixed anxiety and depressive disorder 04/17/[address] [facility] [address] [place] [address] Kaylah Foley MD Mixed anxiety and depressive disorder 04/16/[address] [facility] [address] [place] [address] Kaylah Foley MD Mixed anxiety and depressive disorder 04/16/2025 Refill [facility] [address] [place] [address] Kaylah Foley MD Mixed anxiety and depressive disorder 04/09/2025 1:30 PM EDT Clinical Support [facility] [address] [place] [phone] Arlet Quijano, RN Long-term current use of benzodiazepine (Primary Dx) 04/09/[address] [facility] [address] [place] [phone] Arlet Quijano, RN Long-term current use of benzodiazepine (Primary Dx) 04/09/2025 Travel 04/09/[address] [address] Arlet Quijano, ROBERT Recommend [employer] Tele Tier 2 04/09/[address] [facility] [address] [place] [address] Kaylah Foley MD 04/09/[address] [address] Kaylah Foley MD Appointment Request; Schedule [employer] Renewal appt 04/06/2025 Refill [facility] [address] [place] [address] Kaylah Foley MD Mixed anxiety and depressive disorder 04/03/2025 2:30 PM EDT Telemedicine [facility] [address] [place] [phone] Kaylah Foley MD Mixed anxiety and depressive disorder (Primary Dx); Retention of urine; Flaccid paraplegia (CMS/HCC) 04/03/2025 Travel 04/02/[address] [facility] [address] [place] [phone] Kaylah Foley MD chart prep 03/29/[address] [facility] [address] [place] [phone] Kaylah Foley MD TELEPHONE CALL; Prior Authorization ([facility] Request: idocaine (Uro-Jet) 2 % gel) 03/29/[address] [facility] [address] [place] [phone] Kaylah Foley MD 03/26/2025 Orders Only GENERIC EXTERNAL DATA DEPARTMENT Provider, Generic External Data from Last 3 Months Immunizations Immunization Administration Dates Next Due Hep B, adult [...] 24 06/21/2025 11:56 AM EDT Oxygen Saturation 98% 06/11/2025 8:50 AM EDT Inhaled Oxygen Concentration - - Weight 61.2 kg (135 lb) 06/11/2025 8:50 AM EDT Height 165.1 cm (5' 5 ) 06/11/2025 8:50 AM EDT Body Mass Index 22.47 06/11/2025 8:50 AM EDT Plan of Treatment Upcoming Encounters Date Type Department Care Team (Late st Contact Info) Description 08/24/2025 1:30 PM EST Telemedicine [facility] [address] [place] [address] Arlet Quijano RN 10/29/2025 3:30 PM EST Office Visit [facility] [address] [place] [address] Luisana Dhillon, OD [address] [place] [address] Health Maintenance Due Date Last Done Comments CT Colonography 1958 FIT DNA/Cologuard 1958 FIT 1958 FOBT 1958 Sigmoidoscopy 1958 Alcohol/Substance Use Screening 1970 COVID-19 Vaccine ( season) 2025 07/10/2024, 07/23/2023, 07/24/2022, Additional history exists Influenza Vaccine (#1) 2025 , 07/23/2023, 07/24/2022, Additional history exists Depression Screening 10/24/2025 10/24/2024, 10/07/20 23 SDOH Screening 10/24/2025 10/24/2024 Tobacco Screening 06/21/2026 06/21/2025 Colonoscopy 02/29/2028 02/28/2025 Colorectal Cancer Screening 02/29/2028 Lipid Panel 10/07/2028 10/07/2023, 05/18, 11/14/2020, Additional history exists DTaP/Tdap/Td Vaccines (3 - Td or Tdap) 08/19/2033 08/19/2023, 01/27/2013, 10/14/2006 Hepatitis B Vaccines Completed 01/16/2014, 01/27/2013, 07/31/2010 Zoster Vaccines Completed 03/26/2021, 09/16/2020 Hepatitis C Screening Completed 10/07/2023 RSV Patients and Patients Aged 60 years or older Completed 10/13/2023 Pneumococcal Vaccine: 50+ Years Completed 07/10/2024, 10/14/2006 [...] patient's age to complete this topic Meningococcal B Vaccine Aged Out No l onger eligible based on patient's age to complete [...] Associated Diagnosis Comments POCT URINALYSIS DIPSTICK Routine 06/11/2025 9:09 AM EDT UTI symptoms PSA, TOTAL Routine 04/24/2025 9:35 AM EDT HEMOGLOBIN A1C Routine 04/24/2025 9:35 AM EDT Complicated UTI (urinary tract infection) Hypotension, unspecified hypotension type C-REACTIVE PROTEIN Routine 04/24/2025 9: 35 AM EDT Complicated UTI (urinary tract infection) Hypotension, unspecified hypotension type SED RATE BY MODIFIED WESTERGREN Routine 04/24/2025 9:35 AM EDT Complicated UTI (urinary tract infection) Hypotension, unspecified hypotension type BASIC METABOLIC PANEL Routine 04/24/2025 9:35 AM EDT Complicated UTI (urinary tract infection) Hypotension, unspecified hypotension type HEPATIC FUNCTION PANEL Routine 04/24/2025 9:35 AM EDT Complicated UTI (urinary tract infection) Hypotension, unspecified hypotension type CBC WITH AUTO DIFFERENTIAL Routine 04/24/2025 9:35 AM EDT Complicated UTI (urinary tract infection) Hypotension, unspecified hypotension type CULTURE, URINE, ROUTINE Routine 04/24/2025 9:35 AM EDT Complicated UTI (urinary tract infection) POCT URINALYSIS DIPSTICK Routine 04/24/2025 9:33 AM EDT Complicated UTI (urinary tract infection) POCT CM-14 URINE DRUG SCREEN Routine 04/09/2025 2:05 PM EDT Long-term current use of benzodiazepine DRUG MONITORING, BENZODIAZEPINES, QUANTITATIVE, URINE Routine 04/09/2025 2:00 PM EDT Long-term current use of benzodiazepine CYTOPATH-CELL ENHANCED Routine 03/26/2025 4:43 PM EDT CULTURE, URINE, ROUTINE Routine 03/26/2025 11:13 AM EDT HM COLONOSCOPY Routine 02/28/2025 HEPATITIS PANEL, GENERAL Routine 10/07/2023 10:48 AM EST Encounter for preventive health examination Presence of intrathecal baclofen pump LIPID PANEL WITH REFLEX TO DIRECT LDL Routine 10/07/2023 10:48 AM EST Encounter for preventive health examination from Last 3 Months or Most Recently Relevant to Health Maintenance Results * (ABNORMAL) POCT Urinalysis (06/11/2025 9:09 AM EDT) Only the most recent of2 resultswithin the time period is included. Color, UA Yellow Clarity, UA Clear Glucose, UA Negative Bilirubin, UA Negative Ketones, UA Negative Spec Grav, UA 1.025 Blood, UA Positive(A) Negative, None Detected Comment:trace-intact pH, UA 6.0 Protein, UA Trace Urobilinogen, UA 0.2 Leukocytes, UA Negative Negative, Rare, Trace Nitrite, UA Positive(A) Negative, None Detected Comment:Large Appearance, UA Yellow QC Media Lot # [id number] Lot# Expiration Date ,026 Urine 06/11/2025 9:09 AM EDT Yanci Boyd MD POINT OF CARE TEST ENTER/EDIT OR DERABLES Final Result * (ABNORMAL) CBC auto differential (04/24/2025 9:35 AM EDT) White Blood Count 5.7 4.8 - 10.8 X10*3/uL [facility] Red Blood Count 4.99 4.60 - 5.80 X10*6/uL [facility] Hemoglobin 14.1 14.0 - 18.0 g/dl [facility] Hematocrit 43.7 42.0 - 52.0 % [facility] Mean Corpuscular Volume 87.6 80.0 - 98.0 fL [facility] Mean Corpuscular Hemoglobin 28.3 27.0 - 33.0 pg [facility] Mean Corpuscular HGB Conc 32.3 31.0 - 36.0 g/dl [facility] Red Cell Distribution Width 13.4 11.0 - 16.0 % [facility] Platelet Count 191 160 - 400 X10*3/uL [facility] Mean Platelet Volume 9.6 9.4 - 12.4 fL [facility] Neutrophils Percent Auto 72.3 45 - 73 % [facility] Imm Gran Pct Auto 0.3 0.0 - 0.4 % [facility] Lymphocytes Percent Auto 18.3(L) 20 - 40 % [facility] Monocytes Percent Auto 8.2 2 - 11 % [facility] Eosinophils Percent Auto 0.7 0 - 4 % [facility] Basophils Percent Auto 0.2 0 - 2 % [facility] NRBC Pct Auto 0.0 0.0 - 0.2 /100WBC [facility] Neutrophils Absolute Auto 4.1 2.0 - 8.3 x10*3/uL [facility] Imm Gran Abs Auto 0.02 0.00 - 0.03 X10*3/uL [facility] Lymphocytes Absolute Auto 1.1(L) 1.2 - 4.9 X10*3/uL [facility] Monocytes Absolute Auto 0.5 0.1 - 1.2 X10*3/uL [facility] Eosinophils Absolute Auto 0.0 0.0 - 0.4 X10*3/uL [facility] Basophils Absolute Auto 0.0 0.0 - 0.2 X10*3/uL [facility] NRBC Abs Auto 0.000 0.0 - 0.012 X10*3/uL [facility] Blood Venous blood specimen / Unknown 04/24/2025 9:35 AM EDT 04/24/2025 12:14 PM EDT Angela Reed DO LAB BLOOD ORDERABLES Final R esult Performing Organization Address City/[facility]/ZIP Co de Phone Number [facility] [address] [place] [phone] * Sed Rate by Modified Westergren (04/24/2025 9:35 AM EDT) Erythrocyte Sedimentation Rate 2 0 - 15 MM/HR [facility] Comment:Patients with polycy themia and many hemoglobin abnormalitiesmay have depressed sed rates whereas patients with anemiamay have elevated sed rates. Blood Venous blood specimen / Unknown 04/24/2025 9:35 AM EDT 04/24/2025 12:14 PM EDT Angela Reed DO LAB BLOOD ORDERABLES Final R esult Performing Organization Address [facility] de Phone Number [facility] [address] [place] [phone] * Culture, Urine, Routine (04/24/2025 9:35 AM EDT) Only the most recent of2 resultswithin the time period is included. Urine Urine specimen obtained by clean catch procedure / Unknown 04/24/2025 9:35 AM EDT 04/24/2025 12:30 PM EDT Comment:UACC Narrative [facility] - 04/26/2025 11:07 AM EDT Urine Culture Report Result Urine Culture > 100,000 cfu/ml Urine Culture Mixed bacterial rosalee characteristic of Urine Culture urogenital contamination. Specimen Source: Urine clean catch Angela Reed DO LAB MICROBIOLOGY - GENERAL O RDERABLES Final Result Performing Organization Address [facility] Co de Phone Number [facility] [address] [place] [phone] * C-reactive Protein (04/24/2025 9:35 AM EDT) C Reactive Protein 0.11 < or = 0.50 mg/dL [facility] Blood Venous blood specimen / Unknown 04/24/2025 9:35 AM EDT 04/24/2025 12:14 PM EDT Angela Reed DO LAB BLOOD ORDERABLES Final R esult Performing Organization Address City/[facility]/ZIP Co de Phone Number [facility] [address] [place] [phone] * PSA,Total (04/24/2025 9:35 AM EDT) Prostate Specific Antigen 1.20 <0.05 - 4.0 ng/mL [facility] Comment:PSA methodology: Zafar Paris i ChemiluminescentMicroparticle Immunoassay (CMIA) 04/24/2025 9:35 AM EDT 04/24/2025 12:14 PM EDT us Generic External Data Provider LAB BLOOD ORDERAB LES Final Result Performing Organization Address [facility] Co de Phone Number [facility] [address] [place] [phone] * Hemoglobin A1c (04/24/2025 9:35 AM EDT) Hemoglobin A1c 5.4 <6.0 % [facility] Comment:Hemoglobin A1C Refer ence Range Adults: 4.8 - 6.0 % Non diabetic: < 6.0 % Goal: < 7.0 %Additional Action Suggested: > 8.0 %Note: Hemoglobin A1c results are invalid for patients with abnormal amounts of HbF. Blood transfusions may impact the HbA1c concentration in the patient sample. Estimated Average Glucose 108 mg/dL [facility] Comment:eAG = Estimated ave rage glucose which is %A1C expressed asaverage glucose, using the formula of the J8Q-IpecjaaIxulaim Glucose study (ADAG), Diabetes Care, Vol.31,#8,2007 Blood Venous blood specimen / Unknown 04/24/2025 9:35 AM EDT 04/24/2025 12:14 PM EDT Angela Reed DO LAB BLOOD ORDERABLES Final R esult Performing Organization Address [facility] Co de Phone Number [facility] [address] [place] [phone] * Hepatic Function Panel (04/24/2025 9:35 AM EDT) [facility] Bilirubin, Total 0.6 0.0 - 1.0 mg/dL [facility] Bilirubin, Direct 0.2 0.0 - 0.5 mg/dL [facility] Aspartate Amino Transferase 29 5 - 37 U/L [facility] Alanine Aminotransferase 34 0 - 40 U/L [facility] Total Protein 6.5 6.5 - 8.0 g/dL [facility] Albumin Level 4.3 3.5 - 5.0 g/dL [facility] Alkaline Phosphatase 48 39 - 117 U/L [facility] Blood Venous blood specimen / Unknown 04/24/2025 9:35 AM EDT 04/24/2025 12:14 PM EDT Angela Reed DO LAB BLOOD ORDERABLES Final R esult Performing Organization Address [facility] Co de Phone Number [facility] [address] [place] [phone] * (ABNORMAL) Basic Metabolic Panel (04/24/2025 9:35 AM EDT) Pathologist [facility] Sodium 134(L) 135 - 145 mmol/L [facility] Potassium 4.1 3.3 - 5.1 mmol/L [facility] Chloride 101 96 - 108 mmol/L [facility] Carbon Dioxide 26 22 - 29 mmol/L [facility] Anion Gap 11(L) 12 - 20 [facility] Urea Nitrogen (BUN) 14 9 - 16 mg/dL [facility] Creatinine, Serum 0.60 0.5 - 1.4 mg/dL [facility] Estimated Glomerular Filt Rate >60 [facility] Comment:Chronic Kidney Disea se: Estimated GFR < 60 mL/min/1.39q0Idgvnc Kidney Disease: Estimated GFR < 15 mL/min/1.73m2 Glucose 92 60 - 115 mg/dL [facility] Calcium 8.6 8.4 - 10.2 mg/dL [facility] Blood Venous blood specimen / Unknown 04/24/2025 9:35 AM EDT 04/24/2025 12:14 PM EDT us Angela Reed DO LAB BLOOD ORDERABLES Final R esult [facility] [address] [place] [phone] * (ABNORMAL) POCT CM-14 Urine Drug Screen (04/09/2025 2:05 PM EDT) THC Negative Cocaine Screen, Urine Negative Opiate Screen, Urine Negative Methamphetamine Screen Urine Negative Amphetamine Screen, Urine Negative Benzodiazepines Screen, Urine Negative Barbiturate Screen, Urine Negative Methadone Screen, Urine Negative Buprenophine Screen, Urine Negative TCA, Urine Negative MDMA Urine Negative ng/mL Oxycodone Screen, Urine Negative Phencyclidine (PCP), Urine Negative Propoxyphene, Urine Negative Fentanyl, Urine Negative Urine Urine specimen obtained by clean catch procedure / Unknown 04/09/2025 2:05 PM EDT Narrative Arlet Quijano RN - 04/09/2025 2:05 PM EDT UTOX cup Lot#[id number] Exp. 08/17/26 Internal Pass Control us Kaylah Foley MD POINT OF CARE TEST ENTER /EDIT ORDERABLES Final Result * Drug Monitoring, Benzodiazepines, Quantitative, Urine (04/09/2025 2:00 PM EDT) Nordiazepam, GCMS Urine NEGATIVE [facility] Comment:[id number] ng/mL Oxazepam, GCMS Urine NEGATIVE [facility] Comment:[id number] ng/mL Lorazepam GCMS Urine NEGATIVE [facility] Comment:[id number] ng/mL Alprazolam, GCMS Urine NEGATIVE [facility] Comment:[id number] ng/mL Alphahydroxytriazolam , GCMS Ur NEGATIVE [facility] Comment:[id number] ng/mL Temazepam, GCMS Urine NEGATIVE [facility] Comment:[id number] ng/mL Alphahydroxymidazolam ,GCMS Ur NEGATIVE [facility] Comment:[id number] ng/mL Aminoclonazepam, GCMS Urine 256 [facility] Comment:[id number] ng/mL Flurazepam Metabolite,GCMS Ur NEGATIVE [facility] Comment:[id number] ng/mL Benzodiazepines Comments SEE NOTE [facility] Comment:This drug testing is for medical treatment only. Analysiswas performed as non-forensic testing and these resultsshould be used only by healthcare providers torender diagnosis or treatment, or to monitor progress ofmedical conditions.Benzodiazepines Notes:Aminoclonazepam detected is consistent with the use of thedrug Clonazepam.LDT Notes:Confirmation tests were developed and their analyticalperformance characteristics have been determined by [facility] [employer] [facility]. It has not been cleared orapproved by the FDA. This assay has been validated pursuantto the CLIA regulations and is used for clinical purposes.Healthcare Providers needing Interpretation assistance,please contact us at [phone] ( ) M-F,8am to 10pm ESTPERFORMING SITE:[facility] [employer], [address] [place] [phone] Postal Carrier: AKI ISLAS MD, CLIA:[id number] Urine (Urine, Random) 04/09/2025 2:00 PM EDT 04/09/2025 5:38 PM EDT Kaylah Foley MD LAB URINE ORDERABLES Fin al Result [facility] [address] [place] [phone] * Cytopath-cell enhanced (03/26/2025 4:43 PM EDT) 03/26/2025 4:43 PM EDT 03/27/2025 9:55 AM EDT Stephanie [facility] - 03/27/2025 3:30 PM EDT ----- ------- Name: Erasmo Ignacio Age/Sex: 64/M : 1960 Unit#: [id number] Attend Dr: Latasha Pike [facility] Re03/26/25 Status: DEP REF Location: [facility] Disch: ----- ------- SPEC : [id number] RECD: 03/27/25 STATUS: FLORY REKane NUM: [id number] [place]: 03/26/25 [facility] DR: Latasha Pike [facility] ENTERED: 03/27/25-1208 SP TYPE: Cytology OTHR DR: Kaylah Foley MD ORDERED: Cyto-enhanced Diagnosis Urine, voided: Negative for high-grade urothelial malignancy. Comment: The cytology smear shows abundant inflammatory cells with background reactive squamous cells and rare reactive urothelial cells. There is no evidence of high-grade urothelial malignancy. Clinical History Recurrent urinary tract infection, site not specific Material Received Urine Gross Description Received is 7 cc of cloudy yellow fluid from which a ThinPrep slide is prepared. IHC S/NG Disclaimer NOTE: Unless otherwise stated, all tissue is formalin-fixed and paraffin-embedded. Some or all of the immunohistochemical tests reported herein may have been developed and their performance characteristics determined by [facility]. They have not been cleared or approved by the U.S. Food and Drug Administration (FDA). However, the FDA has determined that such clearance or approval is not necessary. This laboratory is certified under the Clinical Laboratory Improvement Amendments of 1988 (CLIA) as qualified to perform high complexity clinical laboratory testing. Copies To: Kaylah Foley MD [address] [address] Latasha Pike [facility] [address] [place], [place] [address]Lisa Gill [address] [place] [address] [email or web address] CONTINUED ON NEXT PAGE ----- ------- Name: Erasmo Ignacio Age/Sex: 64/M : 1960 Unit#: [id number] Attend Dr: Latasha Pike [facility] Re03/26/25 Status: DEP REF Location: [facility] Disch: ----- ------- SPEC : [id number] RECD: 03/27/25 STATUS: FLORY DURON NUM: [id number] [place]: 03/26/25 [facility] DR: Latasha Pike [facility] ENTERED: 03/27/25-120 SP TYPE: Cytology OTHR DR: Kaylah Foley MD ORDERED: Cyto-enhanced ----- ------- Signed (signature on file) Tj Messer MD 03/27/25 1530 ----- ------- END OF REPORT Generic External Data Provider LAB CYTOLOGY HA PETERSEN Final Result [facility] [address] [place] [phone] * (ABNORMAL) Hm Colonoscopy (02/28/2025) Colonoscopy Abnormal( A) Normal Comment:TA's x 3 us Kaylah Foley MD HEALTH MAINTENANCE Final Result * (ABNORMAL) Lipid Panel with Reflex to Direct LDL (10/07/2023 10:48 AM EST) Triglycerides 75 <150 mg/dL [facility] Comment:Desirable Triglyceri de: less than 150 mg/dLBorderline High Triglyceride 150-199 mg/dLHigh Triglyceride: 200-499 mg/dLVery High Triglyceride: greater than or equal to 5OO mg/dL Cholesterol 166 <200 mg/dL [facility] Comment:Desirable Cholestero l: less than 200 mg/dLBorderline High Cholesterol: 200-239 mg/dLHigh Cholesterol: greater than 239 mg/dL LDL Cholesterol Calculated 112(H) <100 mg/dL [facility] Comment:Desirable LDL: less than 100 mg/dLNear Optimal/Above Optimal LDL: 110- 129 mg/dLBorderline High LDL: 130-159 mg/dLHigh LDL: 160-189 mg/dLVery High LDL: greater than or equal to 190 mg/dL HDL Cholesterol 39(L) >40 mg/dL [facility] Comment:Desirable HDL: great er than 40 mg/dL Note: This HDL assay may give artificially low results in patients with liver disease. Blood 10/07/2023 10:4 8 AM EST 10/07/2023 11:22 AM EST us Kaylah Foley MD LAB BLOOD ORDERABLES Fin al Result [facility] [address] [place] [address] [phone] * Hepatitis Panel, General (10/07/2023 10:48 AM EST) Hepatitis A IgM Nonreactive Nonreactive [facility] Comment:IgM antibodies to REED V not detected; does not exclude earlyacute or recovered HAV infection. ~Hepatitis B Surface Antibody REACTIVE Nonreactive [facility] Comment:REACTIVE: > 11.99 mI U/mL Hepatitis B Core Antibody Reactive Nonreactive [facility] Comment:Presumptive evidence of anti-HBc. Hepatitis C Antibody Nonreactive Nonreactive [facility] Comment:Antibodies to HCV no t detected; does not exclude early acuteHCV infection. Hepatitis B Surface Ag Negative Negative [facility] Blood 10/07/2023 10:4 8 AM EST 10/07/2023 11:22 AM EST Kaylah Foley MD LAB BLOOD ORDERABLES Fin al Result [facility] [address] [place] [address] [phone] from Last 3 Months or Most Recently Relevant to Health Maintenance Insurance [facility] ALF OPTIONS (HMO D-SNP) ZULEYMA RIOS [id number] Care Teams Political Science Instructor Relationship Specialty Start Date End Date Kaylah Foley MD [address] [place] [address] PCP - General Family Medicine 06/02/17
--- OUTSIDE RECORDS SUMMARY | 2025-06-26 15:41 | XMS_ITS | Encounter Summary ---
Author Organization [employer] Address 75 [facility] 7t [place] [address] Care Team Providers Care Bottle Filler Name Role Phone Kaylah Foley MD Primary Care Provider + Reason for Visit * Reason Onset Date Comments Med Refill 09/27/2023 F/U on Percocet usage 09/27/2023 Encounter Details Date Type Department Care Team (Late st Contact Info) Description 09/27/2023 Refill [facility] MEDICINE [address] [place], [place] [phone] Kaylah Foley MD [address] [place], [place] [phone] Flaccid paraplegia (CMS/HCC) Social History Tobacco Use [...] request for Percocet refill today. TC via P/I#[id number], pt reports he's has about 27-28 pills left today. He states he feels like sometimes he's not taking the medication for pain, but more because his body was asking for it. Pt encouraged to continue to try and take only twice a day for pain and call for his refill when he has about 9 pills remaining. Pt stated he understood. Will FYI PCP. * Telephone Encounter - Ken Elmer - 09/27/2023 9:08 AM EST Tc from patient requesting a medication refill for oxyCODONE-acetaminophen (Percocet) 5-325 MG tablet documented in this encounter Plan of Treatment Upcoming Encounters Date Type Department Care Team (Late st Contact Info) Description 08/24/2025 1:30 PM EST Telemedicine [facility] MEDICINE [address] [place] [address] Arlet Quijano, ROBERT 10/29/2025 3:30 PM EST Office Visit [facility] OPTOMETRY [address] [place], [place] [phone] Luisana Dhillon, OD [address] [place] [address] documented as of this encounter Visit Diagnoses Diagnosis Flaccid paraplegia (CMS/HCC) Paraplegia documented in this encounter Additional Health Concerns Assessment Noted Time PHQ-9 Depression Total Score: 1 08/19/20 23 9:39 AM EDT documented as of this encounter Care Teams Bottle Filler Relationship Specialty Start Date End Date Kaylah Foley MD [address] [place] [address] PCP - General Family Medicine 06/02/17 documented as of this encounter
--- OUTSIDE RECORDS SUMMARY | 2025-06-26 15:41 | XMS_ITS | Encounter Summary ---
Author Organization [employer] Address 75 [facility] 7t [place] [address] Care Team Providers Care Ordnance Mechanic Name Role Phone Kaylah Foley MD Primary Care Provider + Reason for Visit * Reason Comments Med Refill Encounter Details Date Type Department Care Team (Late st Contact Info) Description 10/09/2022 Refill [facility] MEDICINE [address] [place], [place] [phone] Palma Palacio MD [address] [place], [place] [phone] Other specified anxiety disorders Social History Tobacco [...] 08/24/2025 1:30 PM EST Telemedicine [facility] MEDICINE [address] [place], [place] [phone] Arlet Quijano RN 10/29/2025 3:30 PM EST Office Visit [facility] OPTOMETRY [address] [place] [address] [phone] Luisana Dhillon, OD [address] [place] [address] documented as of this encounter Visit Diagnoses Diagnosis Other specified anxiety disorders documented in this encounter Care Teams Ordnance Mechanic Relationship Specialty Start Date End Date Kaylah Foley MD [address] [place] [phone] PCP - General Family Medicine 06/02/17 documented as of this encounter
--- OUTSIDE RECORDS SUMMARY | 2025-06-26 15:41 | XMS_ITS | Encounter Summary ---
Author Organization [employer] Address 75 [facility] 7t [place] [address] Care Team Providers Care Spring Floor Service Worker Name Role Phone Kaylah Foley MD Primary Care Provider + Reason for Visit * Reason Onset Date Comments Med Refill 03/12/2023 Encounter Details Date Type Department Care Team ([facility] st Contact Info) Description 03/12/2023 Telephone [facility] MEDICINE [address] [place], [place] [phone] Kaylah Foley MD [address] [place], [place] [phone] Med Refill Social History Tobacco Use Types [...] PCP on 03/16/23. * Telephone Encounter - Pepeadri Marcial Allred - 03/12/2023 9:09 AM EDT Tc from pt requesting med refill on oxyCODONE-acetaminophen (Percocet) 5-325 MG tablet Please sent to [facility] - [place], [place] - [address] [place] [address] documented in this encounter Plan of Treatment Upcoming Encounters Date Type Department Care Team (Late st Contact Info) Description 08/24/2025 1:30 PM EST Telemedicine [facility] MEDICINE [address] [place] [address] Arlet Quijano, RN 10/29/2025 3:30 PM EST Office Visit [facility] OPTOMETRY [address] [place] [address] Luisana Dhillon, OD [address] [place] [address] documented as of this encounter Visit Diagnoses Not on filedocumented in this encounter Care Teams Spring Floor Service Worker Relationship Specialty Start Date End Date Kaylah Foley MD [address] [place] [address] PCP - General Family Medicine 06/02/17 documented as of this encounter
--- OUTSIDE RECORDS SUMMARY | 2025-06-26 15:41 | XMS_ITS | Encounter Summary ---
Author Organization [employer] Address 75 [facility] 7t [place] [address] Care Team Providers Care Wildlife Ecology Professor Name Role Phone Kaylah Foley MD Primary Care Provider + Reason for Visit * Reason Comments Med Refill Encounter Details Date Type Department Care Team ([facility] st Contact Info) Description 04/17/2025 Refill [facility] CHC MED & PEDS [address] [place], [place] [phone] Kaylah Foley MD [address] [place], [place] [phone] Mixed anxiety and depressive disorder Social History [...] Info) Description 08/24/2025 1:30 PM EST Telemedicine [facility] MEDICINE [address] [place] [address] Arlet Quijano, ROBERT 10/29/2025 3:30 PM EST Office Visit [facility] OPTOMETRY [address] [place], [place] [phone] Luisana Dhillon, OD [address] [place] [address] documented as of this encounter Visit Diagnoses Diagnosis Mixed anxiety and depressive disorder Dysthymic disorder documented in this encounter Additional Health Concerns Assessment Noted Time PHQ-9 Depression Total Score: 3 10/07/20 23 9:51 AM EST documented as of this encounter Care Teams Wildlife Ecology Professor Relationship Specialty Start Date End Date Kaylah Foley MD [address] [place] [address] PCP - General Family Medicine 06/02/17 documented as of this encounter
--- OUTSIDE RECORDS SUMMARY | 2025-06-26 15:41 | XMS_ITS | Encounter Summary ---
Author Organization [employer] Address 75 [facility] 7t [place] [address] Care Team Providers Care Telesales Consultant Name Role Phone Kaylah Foley MD Primary Care Provider + Reason for Visit * Reason Comments Med Refill Encounter Details Date Type Department Care Team ([facility] st Contact Info) Description 12/02/2023 Refill [facility] DIABETES/NUTRITION [address] [place], [place] [phone] Kaylah Foley MD [address] [place], [place] [phone] Anxiety Social History Tobacco Use Types Packs/Day [...] [facility] MEDICINE [address] [place] [address] Arlet Quijano RN 10/29/2025 3:30 PM EST Office Visit [facility] OPTOMETRY [address] [place] [address] Luisana Dhillon, OD [address] [place] [address] documented as of this encounter Visit Diagnoses Diagnosis Anxiety Anxiety state, unspecified documented in this encounter Additional Health Concerns Assessment Noted Time PHQ-9 Depression Total Score: 3 10/07/20 23 9:51 AM EST documented as of this encounter Care Teams Telesales Consultant Relationship Specialty Start Date End Date Kaylah Foley MD [address] [place] [address] PCP - General Family Medicine 06/02/17 documented as of this encounter
--- OUTSIDE RECORDS SUMMARY | 2025-06-26 15:41 | XMS_ITS | Encounter Summary ---
Author Organization [employer] Address 75 [facility] 7t [place] [address] Care Team Providers Care Paramedic Rn Name Role Phone Kaylah Foley MD Primary Care Provider + Reason for Visit * Reason Comments Med Refill Encounter Details Date Type Department Care Team ([facility] st Contact Info) Description 05/16/2024 Refill [facility] MEDICINE [address] [place], [place] [phone] Erum Scott MD [address] [place], [place] [phone] Flaccid paraplegia (CMS/HCC) Social History Tobacco Use [...] 08/24/2025 1:30 PM EST Telemedicine [facility] MEDICINE [address] [place] [address] Arlet Quijano, ROBERT 10/29/2025 3:30 PM EST Office Visit [facility] OPTOMETRY [address] [place] [address] Luisana Dhillon, OD [address] [place] [address] documented as of this encounter Visit Diagnoses Diagnosis Flaccid paraplegia (CMS/HCC) Paraplegia documented in this encounter Additional Health Concerns Assessment Noted Time PHQ-9 Depression Total Score: 3 10/07/20 23 9:51 AM EST documented as of this encounter Care Teams Paramedic Rn Relationship Specialty Start Date End Date Kaylah Foley MD [address] [place] [address] PCP - General Family Medicine 06/02/17 documented as of this encounter
--- OUTSIDE RECORDS SUMMARY | 2025-06-26 15:42 | XMS_ITS | Encounter Summary ---
Author Organization [employer] Address 75 [facility] 7t [place] [address] Care Team Providers Care Surveillance Supervisor Name Role Phone Kaylah Foley MD Primary Care Provider + Encounter Details Date Type Department Care Team (Latest Contact Info) Description 06/21/2025 Travel Social History Tobacco Use Types Packs/Day [...] Info) Description 08/24/2025 1:30 PM EST Telemedicine [facility] MEDICINE [address] [place] [address] Arlet Quijano RN 10/29/2025 3:30 PM EST Office Visit [facility] OPTOMETRY [address] [place] [address] Luisana Dhillon, OD [address] [place] [address] documented as of this encounter Visit Diagnoses Not on filedocumented in this encounter Additional Health Concerns Assessment Noted Time PHQ-9 Depression Total Score: 3 10/07/20 23 9:51 AM EST documented as of this encounter Care Teams Surveillance Supervisor Relationship Specialty Start Date End Date Kaylah Foley MD [address] [place] [address] PCP - General Family Medicine 06/02/17 documented as of this encounter
== END 2025-06-26 14:07 | disposition home or self-care (01) ==
LOC: HO.HUSH 13:18
PROVIDERS: PCP Internal Medicine; Visit Provider Nurse Practitioner Family
DX: Z13.9 Encounter for screening, unspecified (principal)

== ENCOUNTER 2025-06-26 13:18 | Outpatient (REF) | payer MEDICARE, SELFPAY | END 2025-06-26 13:19 | disposition home or self-care (01) | LOC: HO.LAB 13:18 | PROVIDERS: PCP Internal Medicine; Visit Provider Nurse Practitioner Family | DX: N39.0 Urinary tract infection, site not specified (principal); N31.9 Neuromuscular dysfunction of bladder, unspecified; N42.89 Other specified disorders of prostate; I82.409 Acute embolism and thrombosis of unspecified deep veins of unspecified lower extremity; Z79.01 Long term (current) use of anticoagulants | CPT/HCPCS: 81003; 88112; 99212 ==

== ENCOUNTER 2025-06-28 08:46 | Outpatient (REF) | payer OTHER, SELFPAY ==
--- OUTSIDE RECORDS SUMMARY | 2025-06-28 09:55 | XMS_ITS | Encounter Summary ---
Author Organization [email or web address] Address 75 [facility] 7t [place] [address] Care Team Providers Care Thermite Bomb Loader Name Role Phone Kaylah Foley MD Primary Care Provider + Reason for Visit * Reason Comments Med Refill Encounter Details Date Type Department Care Team ([facility] st Contact Info) Description 05/08/2024 Refill [facility] CHC MED & PEDS [address] [place], [place] [phone] Kaylah Foley MD [address] [place], [place] [phone] Anxiety Social History Tobacco Use Types Packs/Day [...] Info) Description 08/24/2025 1:30 PM EST Telemedicine [facility] MEDICINE [address] [place] [address] Arlet Quijano RN 10/29/2025 3:30 PM EST Office Visit [facility] OPTOMETRY [address] [place] [address] Luisana Dhillon, OD [address] [place] [address] documented as of this encounter Visit Diagnoses Diagnosis Anxiety Anxiety state, unspecified documented in this encounter Additional Health Concerns Assessment Noted Time PHQ-9 Depression Total Score: 3 10/07/20 23 9:51 AM EST documented as of this encounter Care Teams Thermite Bomb Loader Relationship Specialty Start Date End Date Kaylah Foley MD [address] [place] [address] PCP - General Family Medicine 06/02/17 documented as of this encounter
--- OUTSIDE RECORDS SUMMARY | 2025-06-28 09:55 | XMS_ITS | Encounter Summary ---
Author Organization [employer] Address 75 [facility] 7t [place] [address] Care Team Providers Care Bead Trimmer Name Role Phone Kaylah Foley MD Primary Care Provider + Reason for Visit * Reason Comments Med Refill Encounter Details Date Type Department Care Team ([facility] st Contact Info) Description 12/02/[address] [facility] DIABETES/NUTRITION [address] [place], [place] [phone] Kaylah Foley MD [address] [place], [place] [phone] Anxiety Social History Tobacco Use Types Packs/Day [...] 08/24/2025 1:30 PM EST Telemedicine [facility] MEDICINE [address] [place] [address] Arlet Quijano RN 10/29/2025 3:30 PM EST Office Visit [facility] OPTOMETRY [address] [place] [address] Luisana Dhillon, OD [address] [place] [address] documented as of this encounter Visit Diagnoses Diagnosis Anxiety Anxiety state, unspecified documented in this encounter Additional Health Concerns Assessment Noted Time PHQ-9 Depression Total Score: 3 10/07/20 23 9:51 AM EST documented as of this encounter Care Teams Bead Trimmer Relationship Specialty Start Date End Date Kaylah Foley MD [address] [place] [address] PCP - General Family Medicine 06/02/17 documented as of this encounter
--- OUTSIDE RECORDS SUMMARY | 2025-06-28 09:55 | XMS_ITS | Encounter Summary ---
Author Organization [employer] Address 75 [facility] 7t [place] [address] Care Team Providers Care Healthcare Associate Name Role Phone Kaylah Foley MD Primary Care Provider + Reason for Visit * Reason Comments Med Refill Encounter Details Date Type Department Care Team ([facility] st Contact Info) Description 09/29/[address] [facility] MEDICINE [address] [place], [place] [phone] Kaylah Foley MD [address] [place], [place] [phone] Flaccid paraplegia (CMS/HCC) Social History Tobacco Use [...] Info) Description 08/24/2025 1:30 PM EST Telemedicine [facility] MEDICINE [address] [place] [address] Arlet Quijano RN 10/29/2025 3:30 PM EST Office Visit [facility] OPTOMETRY [address] [place] [address] TarLuisana valdez, OD [address] [place] [address] documented as of this encounter Visit Diagnoses Diagnosis Flaccid paraplegia (CMS/HCC) Paraplegia documented in this encounter Additional Health Concerns Assessment Noted Time PHQ-9 Depression Total Score: 1 08/19/20 23 9:39 AM EDT documented as of this encounter Care Teams Healthcare Associate Relationship Specialty Start Date End Date Kaylah Foley MD [address] [place] [address] PCP - General Family Medicine 06/02/17 documented as of this encounter
--- OUTSIDE RECORDS SUMMARY | 2025-06-28 09:55 | XMS_ITS | Encounter Summary ---
Author Organization [employer] Address 75 [facility] 7t [place] [address] Care Team Providers Care Freight Representative Name Role Phone Kaylah Foley MD Primary Care Provider + Reason for Visit * Reason Comments Med Refill Encounter Details Date Type Department Care Team ([facility] st Contact Info) Description 04/17/2025 Refill [facility] CHC MED & PEDS [address] [place], [place] [phone] Kaylah Foley MD [address] [place], [place] [phone] Mixed anxiety and depressive disorder Social History [...] Info) Description 08/24/2025 1:30 PM EST Telemedicine [facility] MEDICINE [address] [place] [address] Arlet Quijano, ROBERT 10/29/2025 3:30 PM EST Office Visit [facility] OPTOMETRY [address] [place], [place] [phone] Luisana Dhillon, OD [address] [place] [address] documented as of this encounter Visit Diagnoses Diagnosis Mixed anxiety and depressive disorder Dysthymic disorder documented in this encounter Additional Health Concerns Assessment Noted Time PHQ-9 Depression Total Score: 3 10/07/20 23 9:51 AM EST documented as of this encounter Care Teams Freight Representative Relationship Specialty Start Date End Date Kaylah Foley MD [address] [place] [address] PCP - General Family Medicine 06/02/17 documented as of this encounter
--- OUTSIDE RECORDS SUMMARY | 2025-06-28 09:55 | XMS_ITS | Encounter Summary ---
Author Organization [employer] Address 75 [facility] 7t [place] [address] Care Team Providers Care Vehicle Fare Collector Name Role Phone Kaylah Foley MD Primary Care Provider + Reason for Visit * Reason Comments Med Refill Encounter Details Date Type Department Care Team ([facility] st Contact Info) Description 09/28/2023 Refill [facility] MEDICINE [address] [place], [place] [phone] Kaylah Foley MD [address] [place], [place] [phone] Flaccid paraplegia (CMS/HCC) Social History Tobacco Use [...] Info) Description 08/24/2025 1:30 PM EST Telemedicine [facility] MEDICINE [address] [place] [address] Arlet Quijano RN 10/29/2025 3:30 PM EST Office Visit [facility] OPTOMETRY [address] [place] [address] TarLuisana valdez, OD [address] [place] [address] documented as of this encounter Visit Diagnoses Diagnosis Flaccid paraplegia (CMS/HCC) Paraplegia documented in this encounter Additional Health Concerns Assessment Noted Time PHQ-9 Depression Total Score: 1 08/19/20 23 9:39 AM EDT documented as of this encounter Care Teams Vehicle Fare Collector Relationship Specialty Start Date End Date Kaylah Foley MD [address] [place] [address] PCP - General Family Medicine 06/02/17 documented as of this encounter
--- OUTSIDE RECORDS SUMMARY | 2025-06-28 09:55 | XMS_ITS | Encounter Summary ---
Author Organization [employer] Address 75 [facility] 7t [place] [address] Care Team Providers Care Flight Crew Time Clerk Name Role Phone Kaylah Foley MD Primary Care Provider + Encounter Details Date Type Department Care Team (Late st Contact Info) Description 06/26/2025 Orders Only GENERIC EXTERNAL DATA DEPARTMENT Provider, Generic External Data Social History Tobacco Use Types Packs/Day Years [...] Info) Description 08/24/2025 1:30 PM EST Telemedicine [facility] MEDICINE [address] [place], [place] [phone] Arlet Quijano, ROBERT 10/29/2025 3:30 PM EST Office Visit [facility] OPTOMETRY [address] [place], [place] [phone] Luisana Dhillon, OD [address] [place] [address] documented as of this encounter Procedures Procedure Name Priority Date/Time Associated Diagnosis Comments CYTOPATH-CELL ENHANCED Routine 06/26/2025 6:08 PM EDT documented in this encounter Results * Cytopath-cell enhanced (06/26/2025 6:08 PM EDT) 06/26/2025 6:08 PM EDT 06/27/2025 9:58 AM EDT [facility] LABS - 06/27/2025 4:32 PM EDT ----- ------- Name: Erasmo Ignacio Age/Sex: 64/M [facility] 1960 [id number] Unit#: [id number] Attend Dr: Latasha Pike [facility] Re06/26/25 Status: [facility] Disch: ----- ------- SPEC : [id number] RECD: 06/27/25 STATUS: FLORY DURON NUM: [id number] [place]: 06/26/25-[address]: Latasha Pike [facility] ENTERED: 06/27/25-100 SP TYPE: Cytology OTHR DR: Kaylah Foley MD ORDERED: Cyto-enhanced Diagnosis Urine: Negative for high-grade urothelial carcinoma. Comment: Examination of a monolayer preparation slide shows abundant acute inflammatory cells, scattered benign squamous cells, and occasional benign urothelial cells. Clinical History Urinary tract infection, site not specified Material Received Urine Gross Description Received is 60 cc of cloudy yellow fluid from which a ThinPrep slide is prepared. IHC S/NG Disclaimer NOTE: Unless otherwise stated, all tissue is formalin-fixed and paraffin-embedded. Some or all of the immunohistochemical tests reported herein may have been developed and their performance characteristics determined by [facility]. They have not been cleared or approved by the U.S. Food and Drug Administration (FDA). However, the FDA has determined that such clearance or approval is not necessary. This laboratory is certified under the Clinical Laboratory Improvement Amendments of 1988 (CLIA) as qualified to perform high complexity clinical laboratory testing. Copies To: Kaylah Foley MD [address] [address] [facility] [address] [place] [address] Dr. Garland [address] [place] [address] [email or web address] CONTINUED ON NEXT PAGE ----- ------- Name: CharlesErasmo Serrano Age/Sex: 64/M : 1960 Unit#: [id number] Attend Dr: Latasha Pike [facility] Re06/26/25 Status: DEP REF Location: [facility] Disch: ----- ------- SPEC : [id number] RECD: 06/27/25 STATUS: FLORY DURON NUM: [id number] [place]: 06/26/[address]: Latasha Pike [facility] ENTERED: 06/27/25-100 SP TYPE: Cytology OTHR DR: Kaylah Foley MD ORDERED: Cyto-enhanced ----- ------- Signed (signature on file) Corazonsaroj Garcia 06/27/25 1632 ----- ------- END OF REPORT us Generic External Data Provider LAB CYTOLOGY [facility] Final Result [facility] [address] [place] [phone] documented in this encounter Visit Diagnoses Not on filedocumented in this encounter Additional Health Concerns Assessment Noted Time PHQ-9 Depression Total Score: 3 10/07/20 23 9:51 AM EST documented as of this encounter Care Teams Flight Crew Time Clerk Relationship Specialty Start Date End Date Kaylah Foley MD [address] [place] [phone] PCP - General Family Medicine 06/02/17 documented as of this encounter
--- OUTSIDE RECORDS SUMMARY | 2025-06-28 09:55 | XMS_ITS | Encounter Summary ---
Author Organization [employer] Address 75 [facility] 7t [place] [address] Care Team Providers Care Hris Specialist Name Role Phone Kaylah Foley MD Primary Care Provider + Reason for Visit * Reason Onset Date Comments Med Refill 09/27/2023 F/U on Percocet usage 09/27/2023 Encounter Details Date Type Department Care Team (Late st Contact Info) Description 09/27/2023 Refill [facility] MEDICINE [address] [place], [place] [phone] Kaylah Foley MD [address] [place], [place] [phone] Flaccid paraplegia (CMS/HCC) Social History Tobacco Use [...] request for Percocet refill today. TC via P/I#[id number], pt reports he's has about 27-28 pills [...] FYI PCP. * Telephone Encounter - Ken lEmer - 09/27/2023 9:08 AM EST Tc from patient requesting a medication refill for oxyCODONE-acetaminophen (Percocet) 5-325 MG tablet documented in this encounter Plan of Treatment Upcoming Encounters Date Type Department Care Team (Late st Contact Info) Description 08/24/2025 1:30 PM EST Telemedicine [facility] MEDICINE [address] [place] [address] Arlet Quijano, ROBERT 10/29/2025 3:30 PM EST Office Visit [facility] OPTOMETRY [address] [place], [place] [phone] Luisana Dhillon, OD [address] [place] [address] documented as of this encounter Visit Diagnoses Diagnosis Flaccid paraplegia (CMS/HCC) Paraplegia documented in this encounter Additional Health Concerns Assessment Noted Time PHQ-9 Depression Total Score: 1 08/19/20 23 9:39 AM EDT documented as of this encounter Care Teams Hris Specialist Relationship Specialty Start Date End Date Kaylah Foley MD [address] [place] [address] PCP - General Family Medicine 06/02/17 documented as of this encounter
--- OUTSIDE RECORDS SUMMARY | 2025-06-28 09:55 | XMS_ITS | Encounter Summary ---
Author Organization [employer] Address 75 [facility] 7t [place] [address] Care Team Providers Care Building Trades Teacher Name Role Phone Kaylah Foley MD Primary Care Provider + Encounter Details Date Type Department Care Team ([facility] st Contact Info) Description 08/18/2024 Orders Only [facility] MEDICINE [address] [place], [place] [phone] Kaylah Foley MD [address] [place], [place] [phone] Mixed anxiety and depressive disorder (Primary Dx) [...] Info) Description 08/24/2025 1:30 PM EST Telemedicine [facility] MEDICINE [address] [place] [address] Arlet Quijano RN 10/29/2025 3:30 PM EST Office Visit [facility] OPTOMETRY [address] [place] [address] Luisana Dhillon, OD [address] [place] [address] documented as of this encounter Visit Diagnoses Diagnosis Mixed anxiety and depressive disorder- Primary Dysthymic disorder documented in this encounter Additional Health Concerns Assessment Noted Time PHQ-9 Depression Total Score: 3 10/07/20 23 9:51 AM EST documented as of this encounter Care Teams Building Trades Teacher Relationship Specialty Start Date End Date Kaylah Foley MD [address] [place] [address] PCP - General Family Medicine 06/02/17 documented as of this encounter
--- OUTSIDE RECORDS SUMMARY | 2025-06-28 09:55 | XMS_ITS | Encounter Summary ---
Author Organization [employer] Address 75 [facility] 7t [place] [address] Care Team Providers Care Sheep Killer Name Role Phone Kaylah Foley MD Primary Care Provider + Encounter Details Date Type Department Care Team (Late st Contact Info) Description 09/13/[address] [facility] MEDICINE [address] [place], [place] [phone] Brenda Thompson Social History Tobacco Use Types [...] t he electric, gas, oil or water Shook threatened to shut off services in your [...] PM EST Telemedicine [facility] MEDICINE [address] [place] [address] Arlet Quijano, ROBERT 10/29/2025 3:30 PM EST Office Visit [facility] OPTOMETRY [address] [place] [address] Luisana Dhillon, OD [address] [place] [address] documented as of this encounter Visit Diagnoses Not on filedocumented in this encounter Additional Health Concerns Assessment Noted Time PHQ-9 Depression Total Score: 1 08/19/20 23 9:39 AM EDT documented as of this encounter Care Teams Sheep Killer Relationship Specialty Start Date End Date Kaylah Foley MD [address] [place] [phone] PCP - General Family Medicine 06/02/17 documented as of this encounter
--- OUTSIDE RECORDS SUMMARY | 2025-06-28 09:55 | XMS_ITS | Encounter Summary ---
Author Organization [employer] [facility] Address [address] [place] [address] 7t [place] [address] Care Team Providers Care Casing Cooker Name Role Phone Kaylah Foley MD Primary Care Provider + Reason for Visit * Reason Comments Med Refill Encounter Details Date Type Department Care Team (Late st Contact Info) Description 02/04/2023 Refill [facility] [address] [place] [address] Kaylah Foley MD [address] [place] [phone] Anxiety Social History Tobacco Use Types Packs/Day [...] EST Telemedicine [facility] MEDICINE [address] [place] [address] Arlet Quijano RN 10/29/2025 3:30 PM EST Office Visit [facility] OPTOMETRY [address] [place] [address] Luisana Dhillon, OD [address] [place] [address] documented as of this encounter Visit Diagnoses Diagnosis Anxiety Anxiety state, unspecified documented in this encounter Care Teams Casing Cooker Relationship Specialty Start Date End Date Kaylah Foley MD [address] [place] [phone] PCP - General Family Medicine 06/02/17 documented as of this encounter
--- OUTSIDE RECORDS SUMMARY | 2025-06-28 09:55 | XMS_ITS | Encounter Summary ---
Author Organization [employer] Address 75 [facility] 7t [place] [address] Care Team Providers Care Health Manager Name Role Phone Kaylah Foley MD Primary Care Provider + Reason for Visit * Reason Comments Med Refill Encounter Details Date Type Department Care Team (Late st Contact Info) Description 10/09/2022 Refill [facility] MEDICINE [address] [place], [place] [phone] Palma Palacio MD [address] [place], [place] [phone] Other specified anxiety disorders Social History Tobacco [...] 08/24/2025 1:30 PM EST Telemedicine [facility] MEDICINE [address] [place], [place] [phone] Arlet Quijano RN 10/29/2025 3:30 PM EST Office Visit [facility] OPTOMETRY [address] [place] [phone] Luisana Dhillon, OD [address] [place] [address] documented as of this encounter Visit Diagnoses Diagnosis Other specified anxiety disorders documented in this encounter Care Teams Health Manager Relationship Specialty Start Date End Date Kaylah Foley MD [address] [place] [phone] PCP - General Family Medicine 06/02/17 documented as of this encounter
--- OUTSIDE RECORDS SUMMARY | 2025-06-28 09:55 | XMS_ITS | Encounter Summary ---
Author Organization [employer] Address 75 [facility] 7t [place] [address] Care Team Providers Care Circuit Court Magistrate Name Role Phone Kaylah Foley MD Primary Care Provider + Reason for Visit * Reason Comments Med Refill Encounter Details Date Type Department Care Team ([facility] st Contact Info) Description 05/16/[address] [facility] MEDICINE [address] [place], [place] [phone] Erum Scott MD [address] [place], [place] [phone] Flaccid paraplegia (CMS/HCC) Social History Tobacco Use [...] is your housing situation today? I have [employer]s 08/19/[address] you [...] 08/24/2025 1:30 PM EST Telemedicine [facility] MEDICINE [address] [place] [address] Arlet Quijano, ROBERT 10/29/2025 3:30 PM EST Office Visit [facility] OPTOMETRY [address] [place] [address] Luisana Dhillon, OD [address] [place] [address] documented as of this encounter Visit Diagnoses Diagnosis Flaccid paraplegia (CMS/HCC) Paraplegia documented in this encounter Additional Health Concerns Assessment Noted Time PHQ-9 Depression Total Score: 3 10/07/20 23 9:51 AM EST documented as of this encounter Care Teams Circuit Court Magistrate Relationship Specialty Start Date End Date Kaylah Foley MD [address] [place] [address] PCP - General Family Medicine 06/02/17 documented as of this encounter
--- OUTSIDE RECORDS SUMMARY | 2025-06-28 09:55 | XMS_ITS | Encounter Summary ---
Author Organization [employer] Address 75 [facility] 7t [place] [address] Care Team Providers Care Spinning And Winding Supervisor Name Role Phone Kaylah Foley MD Primary Care Provider + Reason for Visit * Reason Comments Med Refill Encounter Details Date Type Department Care Team ([facility] st Contact Info) Description 04/17/2025 Refill [facility]S [address] [place], [place] [phone] Kaylah Foley MD [address] [place], [place] [phone] Mixed anxiety and depressive disorder Social History [...] Info) Description 08/24/2025 1:30 PM EST Telemedicine [facility] MEDICINE [address] [place] [address] Arlet Quijano, ROBERT 10/29/2025 3:30 PM EST Office Visit [facility] OPTOMETRY [address] [place], [place] [phone] Luisana Dhillon, OD [address] [place] [address] documented as of this encounter Visit Diagnoses Diagnosis Mixed anxiety and depressive disorder Dysthymic disorder documented in this encounter Additional Health Concerns Assessment Noted Time PHQ-9 Depression Total Score: 3 10/07/20 23 9:51 AM EST documented as of this encounter Care Teams Spinning And Winding Supervisor Relationship Specialty Start Date End Date Kaylah Foley MD [address] [place] [address] PCP - General Family Medicine 06/02/17 documented as of this encounter
--- OUTSIDE RECORDS SUMMARY | 2025-06-28 09:55 | XMS_ITS | Clinical Summary ---
Author Organization [employer] Address [address] [facility] 7[address] [place] [address] Care Team Providers Care Channel Machine Operator Name Role Phone Kaylah Foley [...] to control anxiety and depression in the technician terminal and repeater, pharmaco education re effects and side effects [...] independent. Advised to continue exercise, continue with [employer] therapies We discussed about skin moisturizing, change position to prevent pressure sores. 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 Due to wheelchair bound condition, he cont be at risk of DVT. Will consult with hematology to see if there is an alternative, newer anticoagulant that has not yet been approved for nursing home DVT prophylaxis Vitamin D deficiency 04/04/2018 Restless [...] in the green disposal bin, Frida Stephens, [facility] witnessed the procedure. No need for [...] off anticoagulant. 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 If not needed will continue oxycontin [...] cont slow taper and will FU with [employer] nurse We have done [employer] education re [...] Encounters Date Type Department Care Team Description 06/26/2025 Orders Only GENERIC EXTERNAL DATA DEPARTMENT Provider, Generic External Data 06/22/2025 9:30 AM EDT Telemedicine [facility] MEDICINE [address] [place] [address] Arlet Quijano, RN Long-term current use of benzodiazepine 06/22/2025 Travel 06/21/2025 11:45 AM EDT Office Visit [facility] MEDICINE [address] [facility] [address] Kaylah Foley MD Long-term current use of benzodiazepine (Primary Dx); On continuous oral anticoagulation; Tubular adenoma of colon; Mixed anxiety and depressive disorder 06/21/2025 Travel 06/20/2025 Telephone [facility] MED[facility]INE [address] [facility] [address] Kaylah Foley MD chart prep 06/11/2025 8:40 AM EDT Office Visit [facility] WALK-IN CENTER [address] [place] [address] Yanci Boyd MD UTI symptoms 06/11/2025 Refill [facility] MEDICINE [address] [place] [address] Kaylah Foley MD Mixed anxiety and depressive disorder 06/11/2025 Travel 05/16/2025 Refill [facility] MEDICINE [address] [place] [address] Kaylah Foley MD Mixed anxiety and depressive disorder 05/03/2025 Refill [facility] CHC MED & PEDS [address] [place], [place] [phone] Kaylah Foley MD 04/26/2025 3:30 PM EDT Office Visit [facility] OPTOMETRY [address] [place] [address] Tarka, Luisana, OD Combined forms of age-related cataract of both eyes (Primary Dx); Dry eyes, bilateral; Presbyopia 04/26/2025 Travel 04/24/2025 9:00 AM EDT Office Visit [facility] WALK-IN [address] [address] Angela Reed DO Blurred vision (Primary Dx); Complicated UTI (urinary tract infection); Hypotension, unspecified hypotension type 04/24/2025 Orders Only GENERIC EXTERNAL DATA DEPARTMENT Provider, Generic External Data 04/24/2025 Telephone [facility] WALK-IN [address] [address] Angela Reed DO 04/24/2025 Travel 04/23/2025 Telephone [facility] MEDICINE [address] [place] [address] Kaylah Foley MD Nurse Triage 04/17/2025 Refill [facility] CHC MED & PEDS [address] [place], [place] [phone] Kaylah Foley MD Mixed anxiety and depressive disorder 04/17/2025 Refill [facility] CH[facility] MED & PEDS [address] [place], [place] [phone] Kaylah Foley MD Mixed anxiety and depressive disorder 04/16/2025 Refill [facility] CH[facility] MED & PEDS [address] [place] [address] Kaylah Foley MD Mixed anxiety and depressive disorder 04/16/2025 Refill [facility] CH[facility] MED & PEDS [address] [place] [address] Kaylah Foley MD Mixed anxiety and depressive disorder 04/09/2025 1:30 PM EDT Clinical Support [facility] MEDICINE [address] [place] [address] Arlet Quijano, RN Long-term current use of benzodiazepine (Primary Dx) 04/09/2025 Refill [facility] MEDICINE [address] [place] [address] Arlet Quijano, RN Long-term current use of benzodiazepine (Primary Dx) 04/09/2025 Travel 04/09/2025 Telephone [facility] MEDICINE [address] [place] [address] Arlet Quijano, ROBERT Recommend [employer]ATIVE [employer] Tele Tier 2 04/09/2025 Refill [facility] CH[facility] MED & PEDS [address] [place] [address] Kaylah Foley MD 04/09/[address] [address] Kaylah Foley MD Appointment Request; Schedule [employer] Renewal appt 04/06/2025 Refill [facility] CH[facility] MED & PEDS [address] [place] [address] Kaylah Foley MD Mixed anxiety and depressive disorder 04/03/2025 2:30 PM EDT Telemedicine [facility] MEDICINE [address] [place] [address] Kaylah Foley MD Mixed anxiety and depressive disorder (Primary Dx); Retention of urine; Flaccid paraplegia (CMS/HCC) 04/03/2025 Travel 04/02/2025 Telephone [facility] MEDICINE [address] [place] [address] Kaylah Foley MD chart prep 03/29/2025 Telephone [facility] MEDICINE [address] [place] [phone] Kaylah Foley MD TELEPHONE CALL; Prior Authorization ([facility] PA Request: idocaine (Uro-Jet) 2 % gel) 03/29/2025 Refill [facility] MEDICINE [address] [place] [address] Kaylah Foley MD from Last 3 Months Immunizations Immunization Administration [...] Description 08/24/2025 1:30 PM EST Telemedicine [facility] MEDICINE [address] [place] [address] Arlet Quijano RN 10/29/2025 3:30 PM EST Office Visit [facility] OPTOMETRY [address] [place] [address] Luisana Dhillon, OD [address] [place] [address] Health Maintenance Due Date Last Done Comments [...] CYTOPATH-CELL ENHANCED Routine 06/26/2025 6:08 PM EDT POCT URINALYSIS DIPSTICK Routine 06/11/2025 9:09 AM [...] PM EDT Long-term current use of benzodiazepine HM COLONOSCOPY Routine 02/28/2025 HEPATITIS PANEL, GENERAL Routine 10/07/2023 10:48 AM EST Encounter for preventive health examination Presence of intrathecal baclofen pump LIPID PANEL WITH REFLEX TO DIRECT LDL Routine 10/07/2023 10:48 AM EST Encounter for preventive health examination from Last 3 Months or Most Recently Relevant to Health Maintenance Results * Cytopath-cell enhanced (06/26/2025 6:08 PM EDT) 06/26/2025 6:08 PM EDT 06/27/2025 9:58 AM EDT [facility] - 06/27/2025 4:32 PM EDT ----- ------- Name: Erasmo Ignacio Age/Sex: 64/M : 1960 Unit#: [id number] Attend Dr: Latasha Pike [facility] Re06/26/25 Status: DEP REF [facility] Disch[facility] ----- ------- SPEC : [id number] RECD: 06/27/25 STATUS: FLORY DURON NUM: [id number] [place]: 06/26/25 [facility] DR: Latasha Pike [facility] ENTERED: 06/27/25 SP TYPE: Cytology OTHR DR: Kaylah Foley [...] developed and their performance characteristics determined by [facility]. They have not been cleared or approved by the U.S. Food and Drug Administration (FDA). However, the FDA has determined that such clearance or approval is not necessary. This laboratory is certified under the Clinical Laboratory Improvement Amendments of 1988 (CLIA) as qualified to perform high complexity clinical laboratory testing. Copies To: Kaylah Foley MD [address] [address] Latasha Pike [facility] [address] [place] [address] [address] [place] [address] [email or web address] CONTINUED ON NEXT PAGE ----- ------- Name: Erasmo Ignacio Age/Sex: 64/M : 1960 Unit#: [id number] Attend Dr: Latasha Pike [facility] Re06/26/25 Status: TAZ REF Location: [facility] Disch: ----- ------- SPEC : [id number] RECD: 06/27/25 STATUS: NANDAMaral DURON NUM: [id number] [place]: 06/26/25-[address]: Latasha Pike [facility] ENTERED: 06/27/25-100 SP TYPE: Cytology OTHR DR: Kaylah Foley MD ORDERED: Cyto-enhanced ----- ------- Signed (signature on file) Corazon [place] 06/27/25 1632 ----- ------- END OF REPORT Generic External Data Provider LAB CYTOLOGY HA PETERSEN Final Result [facility] [address] [place] [address] [phone] * (ABNORMAL) POCT Urinalysis (06/11/2025 9:09 AM [...] Media Lot # [id number] Lot# Expiration Date Urine 06/11/2025 9:09 AM EDT Yanci Boyd MD POINT OF CARE TEST ENTER/EDIT OR DERABLES Final Result * (ABNORMAL) CBC auto differential (04/24/2025 9:35 AM EDT) [facility] White Blood Count 5.7 4.8 - 10.8 X10*3/uL [facility] Red Blood Count 4.99 4.60 - 5.80 X10*6/uL [facility] Hemoglobin 14.1 14.0 - 18.0 g/dl [facility] Hematocrit 43.7 42.0 - 52.0 % [facility] Mean Corpuscular Volume 87.6 80.0 - 98.0 fL [facility] Mean Corpuscular Hemoglobin 28.3 27.0 - 33.0 pg [facility] Mean Corpuscular HGB Conc 32.3 31.0 - 36.0 g/dl [facility] Red Cell Distribution Width 13.4 11.0 - 16.0 % [facility] Platelet Count 191 160 - 400 X10*3/uL [facility] Mean Platelet Volume 9.6 9.4 - 12.4 fL [facility] Neutrophils Percent Auto 72.3 45 - 73 % [facility] Imm Gran Pct Auto 0.3 0.0 - 0.4 % [facility] Lymphocytes Percent Auto 18.3(L) 20 - 40 % [facility] Monocytes Percent Auto 8.2 2 - 11 % [facility] Eosinophils Percent Auto 0.7 0 - 4 % [facility] Basophils Percent Auto 0.2 0 - 2 % [facility] NRBC Pct Auto 0.0 0.0 - 0.2 /100WBC [facility] Neutrophils Absolute Auto 4.1 2.0 - 8.3 x10*3/uL [facility] Imm Gran Abs Auto 0.02 0.00 - 0.03 X10*3/uL [facility] Lymphocytes Absolute Auto 1.1(L) 1.2 - 4.9 X10*3/uL [facility] Monocytes Absolute Auto 0.5 0.1 - 1.2 X10*3/uL [facility] Eosinophils Absolute Auto 0.0 0.0 - 0.4 X10*3/uL [facility] Basophils Absolute Auto 0.0 0.0 - 0.2 X10*3/uL [facility] NRBC Abs Auto 0.000 0.0 - 0.012 X10*3/uL [facility] Blood Venous blood specimen / Unknown 04/24/2025 9:35 AM EDT 04/24/2025 12:14 PM EDT us Angela Reed DO LAB BLOOD ORDERABLES Final R esult [facility] [address] [place] [address] [phone] * Sed Rate by Modified Frederick (04/24/2025 9:35 AM EDT) Erythrocyte Sedimentation Rate 2 0 - 15 MM/HR [facility] Comment:Patients with polycy themia and many hemoglobin abnormalitiesmay have depressed sed rates whereas patients with anemiamay have elevated sed rates. Blood Venous blood specimen / Unknown 04/24/2025 9:35 AM EDT 04/24/2025 12:14 PM EDT Angela Cardenascharli LAB BLOOD ORDERABLES Final R esult Performing Organization Address [facility] Co de Phone Number [facility] [address] [place] [phone] * Culture, Urine, Routine (04/24/2025 9:35 AM EDT) Urine Urine specimen obtained by clean catch procedure / Unknown 04/24/2025 9:35 AM EDT 04/24/2025 12:30 PM EDT Comment:UACC Narrative [facility] - 04/26/2025 11:07 AM EDT Urine Culture Report Result Urine Culture > 100,000 cfu/ml Urine Culture Mixed bacterial rosalee characteristic of Urine Culture urogenital contamination. Specimen Source: Urine clean catch Angela Derek BOBO LAB MICROBIOLOGY - GENERAL O RDERABLES Final Result Performing Organization Address [facility] Co de Phone Number [facility] [address] [place] [phone] * C-reactive Protein (04/24/2025 9:35 AM EDT) C Reactive Protein 0.11 < or = 0.50 mg/dL [facility] Blood Venous blood specimen / Unknown 04/24/2025 9:35 AM EDT 04/24/2025 12:14 PM EDT Angela Derek [employer] LAB BLOOD ORDERABLES Final R esult Performing Organization Address [facility] Co de Phone Number [facility] [address] [place] [phone] * PSA,Total (04/24/2025 9:35 AM EDT) Prostate Specific Antigen 1.20 <0.05 - 4.0 ng/mL [facility] Comment:PSA methodology: Abb norma Alinity i ChemiluminescentMicroparticle Immunoassay (CMIA) 04/24/2025 9:35 AM EDT 04/24/2025 12:14 PM EDT us Generic External Data Provider LAB BLOOD ORDERAB LES Final Result Performing Organization Address [facility] Co de Phone Number [facility] [address] [place] [address] [phone] * Hemoglobin A1c (04/24/2025 9:35 AM EDT) Hemoglobin A1c 5.4 <6.0 % [facility] Comment:Hemoglobin A1C Refer ence Range Adults: 4.8 - 6.0 % Non diabetic: < 6.0 % Goal: < 7.0 %Additional Action Suggested: > 8.0 %Note: Hemoglobin A1c results are invalid for patients with abnormal amounts of HbF. Blood transfusions may impact the HbA1c concentration in the patient sample. Estimated Average Glucose 108 mg/dL [facility] Comment:eAG = Estimated ave rage glucose which is %A1C expressed asaverage glucose, using the formula of the U8E-VxiaaraRagfmuk Glucose study (ADAG), Diabetes Care, Vol.31,#8,May. 2007 Blood Venous blood specimen / Unknown 04/24/2025 9:35 AM EDT 04/24/2025 12:14 PM EDT us Angela Reed DO LAB BLOOD ORDERABLES Final R esult Performing Organization Address [facility]/ZIP Co de Phone Number [facility] [address] [place] [address] [phone] * Hepatic Function Panel (04/24/2025 9:35 AM EDT) Bilirubin, Total 0.6 0.0 - 1.0 mg/dL [facility] Bilirubin, Direct 0.2 0.0 - 0.5 mg/dL [facility] Aspartate Amino Transferase 29 5 - 37 U/L [facility] Alanine Aminotransferase 34 0 - 40 U/L [facility] Total Protein 6.5 6.5 - 8.0 g/dL [facility] Albumin Level 4.3 3.5 - 5.0 g/dL [facility] Alkaline Phosphatase 48 39 - 117 U/L [facility] Blood Venous blood specimen / Unknown 04/24/2025 9:35 AM EDT 04/24/2025 12:14 PM EDT Angela Reed DO LAB BLOOD ORDERABLES Final R esult Performing Organization Address City/[facility] Co de Phone Number [facility] [address] [place] [phone] * (ABNORMAL) Basic Metabolic Panel (04/24/2025 9:35 AM EDT) Sodium 134(L) 135 - 145 mmol/L [facility] Potassium 4.1 3.3 - 5.1 mmol/L [facility] Chloride 101 96 - 108 mmol/L [facility] Carbon Dioxide 26 22 - 29 mmol/L [facility] Anion Gap 11(L) 12 - 20 [facility] Urea Nitrogen (BUN) 14 9 - 16 mg/dL [facility] Creatinine, Serum 0.60 0.5 - 1.4 mg/dL [facility] Estimated Glomerular Filt Rate >60 [facility] Comment:Chronic Kidney Disea se: Estimated GFR < 60 mL/min/1.63g9Dolqcg Kidney Disease: Estimated GFR < 15 mL/min/1.73m2 Glucose 92 60 - 115 mg/dL [facility] Calcium 8.6 8.4 - 10.2 mg/dL [facility] Blood Venous blood specimen / Unknown 04/24/2025 9:35 AM EDT 04/24/2025 12:14 PM EDT Angela Reed DO LAB BLOOD ORDERABLES Final R esult Performing Organization Address City/[facility]/ZIP Co de Phone Number [facility] [address] [place] [address] [phone] * (ABNORMAL) POCT CM-14 Urine Drug [...] procedure / Unknown 04/09/2025 2:05 PM EDT Arlet Peterson RN - 04/09/2025 2:05 PM EDT UTOX cup Lot#[id number] Exp. 08/17/26 Internal Pass Control Kaylah Foley MD POINT OF CARE TEST ENTER /EDIT ORDERABLES Final Result * Drug Monitoring, Benzodiazepines, Quantitative, Urine (04/09/2025 2:00 PM EDT) Pathologist [facility] Nordiazepam, GCMS Urine NEGATIVE [facility] Comment:[id number] ng/mL Oxazepam, GCMS Urine NEGATIVE [facility] Comment:TCFDBE09 ng/mL Lorazepam GCMS Urine NEGATIVE [facility] Comment:HVOXCP42 ng/mL Alprazolam, GCMS Urine NEGATIVE [facility] Comment:CIFVNM55 ng/mL Alphahydroxytriazolam , GCMS Ur NEGATIVE [facility] Comment:SSEQRD31 ng/mL Temazepam, GCMS Urine NEGATIVE [facility] Comment:JXFALM42 ng/mL Alphahydroxymidazolam ,GCMS Ur NEGATIVE [facility] Comment:UOLRNA10 ng/mL Aminoclonazepam, GCMS Urine 256 [facility] Comment:FJUXRM41 ng/mL Flurazepam Metabolite,GCMS Ur NEGATIVE [facility] Comment:FSGTFH74 ng/mL Benzodiazepines Comments SEE NOTE [facility] Comment:This drug testing is for medical treatment only. Analysiswas performed as non-forensic testing and these resultsshould be used only by healthcare providers torender diagnosis or treatment, or to monitor progress ofmedical conditions.Benzodiazepines Notes:Aminoclonazepam detected is consistent with the use of thedrug Clonazepam.LDT Notes:Confirmation tests were developed and their analyticalperformance characteristics have been determined by [employer]. It has not been cleared orapproved by the FDA. This assay has been validated pursuantto the CLIA regulations and is used for clinical purposes.Healthcare Providers needing Interpretation assistance,please contact us at [phone] ( ) M-F,8am to 10pm ESTPERFORMING SITE:[facility] [employer] [facility], [address] [place] [phone] Reliability Technologist: AKI ISLAS MD, CLIA:[id number] Urine (Urine, Random) 04/09/2025 2:00 PM EDT 04/09/2025 5:38 PM EDT Kaylah Foley MD LAB URINE ORDERABLES Fin al Result [facility] [address] [place] [phone] * (ABNORMAL) Colonoscopy (02/28/2025) Colonoscopy Abnormal( A) Normal Comment:TA's x 3 Kaylah Foley MD HEALTH MAINTENANCE Final Result * (ABNORMAL) Lipid Panel with Reflex to Direct LDL (10/07/2023 10:48 AM EST) Triglycerides 75 <150 mg/dL [facility] Comment:Desirable Triglyceri de: less than 150 mg/dLBorderline High Triglyceride 150-199 mg/dLHigh Triglyceride: 200-499 mg/dLVery High Triglyceride: greater than or equal to 5OO mg/dL Cholesterol 166 <200 mg/dL [facility] Comment:Desirable Cholestero l: less than 200 mg/dLBorderline High Cholesterol: 200-239 mg/dLHigh Cholesterol: greater than 239 mg/dL LDL Cholesterol Calculated 112(H) <100 mg/dL [facility] Comment:Desirable LDL: less than 100 mg/dLNear Optimal/Above Optimal LDL: 110- 129 mg/dLBorderline High LDL: 130-159 mg/dLHigh LDL: 160-189 mg/dLVery High LDL: greater than or equal to 190 mg/dL HDL Cholesterol 39(L) >40 mg/dL [facility] Comment:Desirable HDL: great er than 40 mg/dL Note: This HDL assay may give artificially low results in patients with liver disease. Blood 10/07/2023 10:4 8 AM EST 10/07/2023 11:22 AM EST Kaylah Foley MD LAB BLOOD ORDERABLES Fin al Result Performing Organization Address [facility] Co de Phone Number [facility] [address] [place] [phone] * Hepatitis Panel, General (10/07/2023 10:48 AM EST) Hepatitis A IgM Nonreactive Nonreactive [facility] Comment:IgM antibodies to REED V not detected; does not exclude earlyacute or recovered HAV infection. ~Hepatitis B Surface Antibody REACTIVE Nonreactive [facility] Comment:REACTIVE: > 11.99 mI U/mL Hepatitis B Core Antibody Reactive Nonreactive [facility] Comment:Presumptive evidence of anti-HBc. Hepatitis C Antibody Nonreactive Nonreactive [facility] Comment:Antibodies to HCV no t detected; does not exclude early acuteHCV infection. Hepatitis B Surface Ag Negative Negative [facility] Blood 10/07/2023 10:4 8 AM EST 10/07/2023 11:22 AM EST Kaylah Foley MD LAB BLOOD ORDERABLES Fin al Result Performing Organization Address [facility] Co de Phone Number [facility] [address] [place] [phone] from Last 3 Months or Most Recently Relevant to Health Maintenance Insurance [facility] [employer] OPTIONS (O D-SNP) [place]OS [id number] Care Teams Channel Machine Operator Relationship Specialty Start Date End Date Kaylah Foley MD [address] [place] [phone] PCP - General Family Medicine 06/02/17
--- OUTSIDE RECORDS SUMMARY | 2025-06-28 09:55 | XMS_ITS | Encounter Summary ---
Author Organization [employer] Address [address] [facility] [address] [place] [address] Care Team Providers Care White Metal Caster Name Role Phone Kaylah Foley MD Primary Care Provider + Reason for Visit * Reason Onset Date Comments Medication Question 07/05/2024 Encounter Details Date Type Department Care Team ([facility] st Contact Info) Description 07/05/2024 Telephone [facility] MEDICINE [address] [place], [place] [phone] Kaylah Foley MD [address] [place], [place] [phone] Medication Question Social History Tobacco Use Types [...] Info) Description 08/24/2025 1:30 PM EST Telemedicine [facility] [address] [place] [address] Arlet Quijano RN 10/29/2025 3:30 PM EST Office Visit [facility] OPTOMETRY [address] [place] [address] Luisana Dhillon, OD [address] [place] [address] documented as of this encounter Visit Diagnoses Not on filedocumented in this encounter Additional Health Concerns Assessment Noted Time PHQ-9 Depression Total Score: 3 10/07/20 23 9:51 AM EST documented as of this encounter Care Teams White Metal Caster Relationship Specialty Start Date End Date Kaylah Foley MD [address] [place] [address] PCP - General Family Medicine 06/02/17 documented as of this encounter
--- OUTSIDE RECORDS SUMMARY | 2025-06-28 09:55 | XMS_ITS | Encounter Summary ---
Author Organization [employer] Address [address] [facility] 7t [place] [address] Care Team Providers Care Beadworker Name Role Phone Kaylah Foley MD Primary Care Provider + Reason for Visit * Reason Onset Date Comments Med Refill 03/12/2023 Encounter Details Date Type Department Care Team ([facility] st Contact Info) Description 03/12/2023 Telephone [facility] MEDICINE [address] [place], [place] [phone] Kaylah Foley MD [address] [place], [place] [phone] Med Refill Social History Tobacco Use Types [...] (Percocet) 5-325 MG tablet Please sent to [facility] - [place], [place] - [address] [place] [address] documented in this encounter Plan of Treatment Upcoming Encounters Date Type Department Care Team (Late st Contact Info) Description 08/24/2025 1:30 PM EST Telemedicine [facility] MEDICINE [address] [place] [address] Arlet Quijano, RN 10/29/2025 3:30 PM EST Office Visit [facility] OPTOMETRY [address] [place] [address] Luisana Dhillon, OD [address] [place] [address] documented as of this encounter Visit Diagnoses Not on filedocumented in this encounter Care Teams Beadworker Relationship Specialty Start Date End Date Kaylah Foley MD [address] [place] [address] PCP - General Family Medicine 06/02/17 documented as of this encounter
== END 2025-06-28 08:47 | disposition home or self-care (01) ==
LOC: HO.LAB 08:46
PROVIDERS: PCP Internal Medicine; Visit Provider Nurse Practitioner Family
DX: N39.0 Urinary tract infection, site not specified (principal)
CPT/HCPCS: 87086; 87088; 87186

== ENCOUNTER 2025-08-01 16:19 | Outpatient (REF) | payer OTHER, SELFPAY ==
--- OUTSIDE RECORDS SUMMARY | 2025-08-01 09:00 | XMS_ITS | Encounter Summary ---
Author Organization [employer] [facility] Address [address] [facility] 7t [place] [address] Care Team Providers Care Casino Games Dealer Name Role Phone Kaylah Foley MD Primary Care Provider + Reason for Referral * Consultation (Urgent) - Authorized Specialty Diagnoses / Procedures Referred By Contac t Referred To Contact Urology Diagnoses Urinary tract infection associated with catheterization of urinary tract, unspecified indwelling urinary catheter type, initial encounter Pearl Dimas NP [address] [place] [address] Phone: tel: fax: [facility] [address] [place], [place] Phone: tel: fax: Referral ID Status Reason Start Date Expiration Date Visits Requested Visits Authorized [id number] Authorized Specialty Services Required 08/01/2026 1 1 Reason for Visit * Reason Comments sick visit Encounter Details Date Type Department Care Team (Latest Contact Info) Description 08/01/2025 9:00 AM EDT Office Visit [facility] MEDICINE [address] [place], [place] [phone] Pearl Dimas NP [address] [place], [place] [phone] Dysuria (Primary Dx); Urinary tract infection associated with catheterization of urinary tract, unspecified indwelling urinary catheter type, initial encounter Social History Tobacco Use Types Packs/Day Years [...] Sign Reading Time Taken Comments Blood Pressure 115/82 08/01/2025 9:01 AM EDT Pulse 64 08/01/2025 9:01 AM EDT Temperature 36.7 C (98 F) 08/01/2025 9:01 AM EDT Respiratory Rate 16 08/01/2025 9:01 AM EDT Oxygen Saturation 97% 08/01/2025 9:01 AM EDT Inhaled Oxygen Concentration - - Weight 61.2 kg (135 lb) 08/01/2025 9:01 AM EDT Height 165.1 cm (5' 5 ) 08/01/2025 9:01 AM EDT Body Mass Index 22.47 08/01/2025 9:01 AM EDT documented in this encounter Progress Notes * Maximilian Hernandez, INFORMATICS CONSULTANT - 08/01/2025 9:00 AM EDT Images from the original note were not included. Erasmo Moscoso is a 64 y.o. male who presents for a possible UTI. 06/26/25 PMH Seen by urology at [facility]: ...of paraplegia, DVT on Coumadin, urinary tract infections, meningitis, neurogenic bladder, and renal cysts. He presents to the office today (06/26/25 with [facility]) for follow- up of his neurogenic bladder, recurrent urinary tract infections and lower urinary tract symptoms. In discussion with the patient today he reports compliance with methenamine, vitamin-C, and oxybutynin. He discusses noting cloudy urine over the last few weeks and believes he might have a urinary tract infection. He reports having followed up with urgent care and was given a prescription for levofloxacin 750 mg daily and is requesting refill as he feels thisis what he needs. In office urinalysis results reviewed with the patient today 2+ leukocytes negative nitrates. He discusses if he does not drink water daily upon CIC he experiences sediment when performing CIC. However he describes when he drinks water daily he does not have sediment when performing CIC. We did discuss at length bladder health. He reports his main concern is pain with catheterizations. He continues to CIC 6-8 times per day depending on p.o. intake. Previous workup has includedCT results 08/10 numerous left renal simple cyst. Left lower pole cortical thinning and scarring. Otherwise, the kidneys are normal in size, shape, and attenuation. No hydronephrosis, hydroureter, or calculi seen bilaterally. The bladder is unremarkable. Urology sent urine for cytology 06/26/25; 06/28/25 results: Klebsiella pneumoniae Quant > 100,000 cfu/mL Klebsiella pneumoniae: Ampicillin >=32(R) Klebsiella pneumoniae: Cefazolin 2(S) Klebsiella pneumoniae: Cefepime <=0.12(S) Klebsiella pneumoniae: Ceftriaxone <=0.25(S) Klebsiella pneumoniae: Ciprofloxacin <=0.06(S) Klebsiella pneumoniae: Gentamicin <=1(S) Klebsiella pneumoniae: Nitrofurantoin 32(S) Klebsiella pneumoniae: Trimethoprim/Sulfamethoxazole >=320(R) Specimen Source: Urine Catheterized Today, pt 6/10 left lower back / side pain starting last night, cloudy, odorous urine, with pain atthe bladder sphincter. He denies burning or pain on urination or hematuria. He denies fever or chills. Pt reports end of UTI symptoms after completing previous antibiotics (ciprofloxacin). Problem List[1] Allergies[2] Review of Systems Constitutional: Negative. HENT: Negative. Eyes: Negative. Respiratory: Negative. Cardiovascular: Negative. Gastrointestinal: Negative. Endocrine: Negative. Genitourinary: Positive for dysuria, flank pain and urgency. Negative for hematuria and penile discharge. Pt also reports pain at what he perceives to be the bladder sphincter. Musculoskeletal: Positive for back pain. Over CVA left radiating to left side Skin: Negative. Allergic/Immunologic: Negative. Neurological: Negative. Hematological: Negative. Psychiatric/Behavioral: Negative. Vitals: 08/01/25 0901 BP: 115/82 BP Location: Left arm Patient Position: Sitting BP Cuff Size: Adult Pulse: 64 Resp: 16 Temp: 98 ??F (36.7 ??C) TempSrc: Oral SpO2: 97% Weight: 135 lb (61.2 kg) Height: 5' 5 (1.651 m) Physical Exam Constitutional: Appearance: Normal appearance. He is normal weight. HENT: Head: Normocephalic. Right Ear: Tympanic membrane, ear canal and external ear normal. Left Ear: Tympanic membrane, ear canal and external ear normal. Nose: Nose normal. Mouth/Throat: Mouth: Mucous membranes are moist. Pharynx: Oropharynx is clear. Eyes: Extraocular Movements: Extraocular movements intact. Conjunctiva/sclera: Conjunctivae normal. Pupils: Pupils are equal, round, and reactive to light. Cardiovascular: Rate and Rhythm: Normal rate and regular rhythm. Pulses: Normal pulses. Heart sounds: Normal heart sounds. Pulmonary: Effort: Pulmonary effort is normal. Breath sounds: Normal breath sounds. Abdominal: General: Bowel sounds are normal. Palpations: Abdomen is soft. Tenderness: There is left CVA tenderness. Musculoskeletal: General: Normal range of motion. Cervical back: Normal range of motion. Comments: Pt is paraplegic lower body at baseline Skin: General: Skin is warm. Capillary Refill: Capillary refill takes less than 2 seconds. Neurological: General: No focal deficit present. Mental Status: He is alert and oriented to person, place, and time. Psychiatric: Mood and Affect: Mood normal. Behavior: Behavior normal. ntains abnormal data POCT Urinalysis Order: [id number] Status: Final result Next appt: 08/24/2025 at 01:30 PM in Family Medicine (Arlet Quijano RN) Dx: Dysuria Test Result Released: No [facility] Result Notes Component Ref Range & Units (hover) 09:53 (08/01/25) 1 mo ago (06/11/25) 3 mo ago (04/24/25) 5 mo ago (02/09/25) 1 yr ago (12/14/23) 1 yr ago (10/07/23) 1 yr ago (08/13/23) Color, UA Yellow Yellow Yellow Yellow Yellow Yellow Yellow CM Clarity, UA Clear Clear Turbid Clear Hazy Cloudy Cloudy Glucose, UA Negative Negative Negative Negative Negative Negative Negative Bilirubin, UA Negative Negative Negative Negative Negative Negative Negative Ketones, UA Negative Negative Negative Negative Positive VC, CM Negative Negative Spec Grav, UA 1.015 1.025 1.015 1.015 1.025 VC 1.015 1.015 Blood, UA Positive Abnormal Positive Abnormal CM Positive Abnormal CM Negative Negative Positive Abnormal CM Negative Comment: trace-lysed pH, UA 6.5 6.0 6.5 6.0 6.5 7.5 7.0 Protein, UA Negative Trace Negative Negative Trace Negative Negative Urobilinogen, UA 0.2 0.2 0.2 0.2 0.2 0.2 0.2 Leukocytes, UA Trace Negative Many Abnormal CM Few 15 Abnormal CM Few 15 Abnormal VC, CM Many Abnormal CM Moderate Abnormal Comment: moderate Nitrite, UA Positive Abnormal Positive Abnormal CM Positive Abnormal Positive Abnormal Negative Positive Abnormal Positive Abnormal Appearance, UA yellow Yellow Dark cloudy QC Media Lot # [id number] Lot# Expiration Date Assessment & Plan Diagnosis Plan 1. Dysuria POCT Urinalysis Culture, Urine, Routine Culture, Urine, Routine 2. Urinary tract infection associated with catheterization of urinary tract, unspecified indwellingurinary catheter type, initial encounter Referral to Urology Referral to Urology Plan Prescribed: Levofloxacin 750 mg 1x / d x 7 days. Advised pt to drink plenty of water in general andparticularly with this medication. Hold Fosfomycin while taking this medication (Pt stated he was not taking the Fosfomycin as it caused constipation; pt was asked to bring this up with urology on his subsequent visit to explore other alternatives for UTI prevention). Urine culture to determine appropriateness of Levofloxacin. Referral to urology in one week. Discussed: Method of self-catheterization to promote a clean process. Pt demonstrated a good understanding; Importance of good hydration; warning signs that would necessitate going to the ER. Pt refused immunizations today. Current Medications[3] No follow-ups on file. [facility] ISSUER Attestation ISSUER Resident Attestation: Patient was seen and evaluated by Maximilian VACA, in collaboration with Pearl Dimas ISSUER who has reviewed my assessment and plan. I, Pearl Dimas ISSUER , have reviewed the resident's note and agree with the assessment & plan of care as documented above. Visit Conducted in: Georgian Translation by: Provided by 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) ([facility]) Mixed anxiety and depressive disorder Postprocedural male urethral stricture Recurrent major depression in partial remission (CMS/HCC) Recurrent urinary tract infection Retention of urine Restless legs Vitamin D deficiency Deviation of finger Chronic bilateral low back pain without sciatica Presence of intrathecal baclofen pump Encounter for preventive health examination Encounter for screening colonoscopy Lower abdominal pain Generalized abdominal pain Slow transit constipation On continuous oral anticoagulation Long-term current use of benzodiazepine Tubular adenoma of colon [2] No Known Allergies [3] Current Outpatient Medications: apixaban (Eliquis) 2.5 MG tablet, Take 1 tablet (2.5 mg) by mouth 2 times daily. DC warfarin, Disp:60 tablet, Rfl: 11 Ascorbic Acid (vitamin C) 500 MG tablet, Take 1,000 mg by mouth in the morning., Disp: , Rfl: clonazePAM (KlonoPIN) 0.5 MG tablet, TAKE 1 TABLET BY MOUTH TWICE DAILY IN THE MORNING AND AT BEDTIME NEEDED FOR ANXIETY, Disp: 56 tablet, Rfl: 0 fosfomycin (Monurol) 3 g packet, TAKE 1 [...] becomes available., Disp: 2 each, Rfl: 3 zolpidem (Ambien) 5 MG tablet, TAKE 1 TABLET BY MOUTH AT BEDTIME NEEDED for SLEEP, Disp: 28 tablet, Rfl: 0 documented in this encounter Plan of Treatment Upcoming Encounters Date Type Department Care Team (Late st Contact Info) Description 08/24/2025 1:30 PM EST Telemedicine [facility] MEDICINE [address] [place] [address] Arlet Quijano RN 10/29/2025 3:30 PM EST Office Visit [facility] OPTOMETRY [address] [place] [address] Luisana Dhillon, OD [address] [place] [address] Scheduled Orders Name Type Priority Associated Diagnoses Orde r Schedule Culture, Urine, Routine Microbiology Routine Dysuria Expected: 08/01/2025 (Approximate), Expires: 08/01/2026 Scheduled Referrals Name Type Priority Associated Diagnoses Orde r Schedule Referral to Urology Outpatient Referral Urgent Urinary tract infection associated with catheterization of urinary tract, unspecified indwelling urinary catheter type, initial encounter Expected: 08/01/2025 (Approximate), Expires: 08/01/2026 documented as of this encounter Procedures Procedure Name Priority Date/Time Associated Diagnosis Comments POCT URINALYSIS DIPSTICK Routine 08/01/2025 9:53 AM EDT Dysuria documented in this encounter Results * (ABNORMAL) POCT Urinalysis (08/01/2025 9:53 AM EDT) Color, UA Yellow Clarity, UA Clear Glucose, UA Negative Bilirubin, UA Negative Ketones, UA Negative Spec Grav, UA 1.015 Blood, UA Positive(A) Negative, None Detected Comment:trace-lysed pH, UA 6.5 Protein, UA Negative Urobilinogen, UA 0.2 Leukocytes, UA Trace Negative, Rare, Trace Comment:moderate Nitrite, UA Positive(A) Negative, None Detected Appearance, UA yellow QC Media Lot # [id number] Lot# Expiration Date [id number] Urine (Urine, Random) 08/01/2025 9:53 AM EDT Pearl Dimas ISSUER POINT OF CARE TEST ENTER/EDIT OR DERABLES Final Result documented in this encounter Visit Diagnoses Diagnosis Dysuria- Primary Urinary tract infection associated with catheterization of urinary tract, unspecified indwelling urinary catheter type, initial encounter documented in this encounter Additional Health Concerns Assessment Noted Time PHQ-9 Depression Total Score: 3 10/07/ 23 9:51 AM EST documented as of this encounter Care Teams Casino Games Dealer Relationship Specialty Start Date End Date Kaylah Foley MD [address] [place] [phone] PCP - General Family Medicine 06/02/17 documented as of this encounter
--- OUTSIDE RECORDS SUMMARY | 2025-08-01 19:25 | XMS_ITS | Encounter Summary ---
Author Organization [employer] Address [address] [facility] 7t [place] [address] Care Team Providers Care Rivet Thrower Name Role Phone Kaylah Foley MD Primary Care Provider + Reason for Visit * Reason Comments Med Refill Encounter Details Date Type Department Care Team ([facility] st Contact Info) Description 09/28/[address] [facility] MEDICINE [address] [place], [place] [phone] Kaylah Foley MD [address] [place], [place] [phone] Flaccid paraplegia (CMS/HCC) Social History Tobacco Use [...] Description 08/24/2025 1:[address] [facility] MEDICINE [address] [place] [address] Arlet Quijano RN 10/29/2025 3:30 PM EST Office Visit [facility] OPTOMETRY [address] [place] [address] TarLuisana valdez, OD [address] [place] [address] documented as of this encounter Visit Diagnoses Diagnosis Flaccid paraplegia (CMS/HCC) (HCC) Paraplegia documented in this encounter Additional Health Concerns Assessment Noted Time PHQ-9 Depression Total Score: 1 08/19/20 23 9:39 AM EDT documented as of this encounter Care Teams Rivet Thrower Relationship Specialty Start Date End Date Kaylah Foley MD [address] [place] [address] PCP - General Family Medicine 06/02/17 documented as of this encounter
--- OUTSIDE RECORDS SUMMARY | 2025-08-01 19:25 | XMS_ITS | Encounter Summary ---
Author Organization [employer] Address [address] [facility] 7t [place] [address] Care Team Providers Care Operations Accountant Name Role Phone Kaylah Foley MD Primary Care Provider + Reason for Visit * Reason Comments Med Refill Encounter Details Date Type Department Care Team ([facility] st Contact Info) Description 09/29/2023 Refill [facility] MEDICINE [address] [place], [place] [phone] Kaylah Foley MD [address] [place], [place] [phone] Flaccid paraplegia (CMS/HCC) Social History Tobacco Use [...] Telemedicine [facility] MEDICINE [address] [place] [address] Arlet Quijano RN 10/29/2025 3:30 PM EST Office Visit [facility] OPTOMETRY [address] [place] [address] TarLuisana valdez, OD [address] [place] [address] documented as of this encounter Visit Diagnoses Diagnosis Flaccid paraplegia (CMS/HCC) (HCC) Paraplegia documented in this encounter Additional Health Concerns Assessment Noted Time PHQ-9 Depression Total Score: 1 08/19/20 23 9:39 AM EDT documented as of this encounter Care Teams Operations Accountant Relationship Specialty Start Date End Date Kaylah Foley MD [address] [place] [phone] PCP - General Family Medicine 06/02/17 documented as of this encounter
--- OUTSIDE RECORDS SUMMARY | 2025-08-01 19:25 | XMS_ITS | Encounter Summary ---
Author Organization [employer] Address [address] [facility] 7t [place] [address] Care Team Providers Care Lawnmower Mechanic Name Role Phone Kaylah Foley MD Primary Care Provider + Reason for Visit * Reason Onset Date Comments Med Refill 09/27/2023 F/U on Percocet usage 09/27/2023 Encounter Details Date Type Department Care Team (Late st Contact Info) Description 09/27/2023 Refill [facility] MEDICINE [address] [place], [place] [phone] Kaylah Foley MD [address] [place], [place] [phone] Flaccid paraplegia (CMS/HCC) Social History Tobacco Use [...] request for Percocet refill today. TC via P/I#[id number], pt reports he's has about 27-28 pills [...] Info) Description 08/24/2025 1:30 PM EST Telemedicine [facility] MEDICINE [address] [place] [address] Arlet Quijano, ROBERT 10/29/2025 3:30 PM EST Office Visit [facility] OPTOMETRY [address] [place], [place] [phone] TarLuisana valdez, OD [address] [place] [address] documented as of this encounter Visit Diagnoses Diagnosis Flaccid paraplegia (CMS/HCC) (HCC) Paraplegia documented in this encounter Additional Health Concerns Assessment Noted Time PHQ-9 Depression Total Score: 1 08/19/20 23 9:39 AM EDT documented as of this encounter Care Teams Lawnmower Mechanic Relationship Specialty Start Date End Date Kaylah Foley MD [address] [place] [address] PCP - General Family Medicine 06/02/17 documented as of this encounter
--- OUTSIDE RECORDS SUMMARY | 2025-08-01 19:25 | XMS_ITS | Encounter Summary ---
Author Organization [employer] Address [address] [facility] 7t [place] [address] Care Team Providers Care Chili Pepper Grinder Name Role Phone Kaylah Foley MD Primary Care Provider + Reason for Visit * Reason Comments Med Refill Encounter Details Date Type Department Care Team ([facility] st Contact Info) Description 04/17/2025 Refill [facility] MED & PEDS [address] [place], [place] [phone] Kaylah Foley MD [address] [place], [place] [phone] Mixed anxiety and depressive disorder Social History [...] Info) Description 08/24/2025 1:30 PM EST Telemedicine [facility] MEDICINE [address] [place] [address] Arlet Quijano, ROBERT 10/29/2025 3:30 PM EST Office Visit [facility] OPTOMETRY [address] [place], [place] [phone] Luisana Dhillon, OD [address] [place] [address] documented as of this encounter Visit Diagnoses Diagnosis Mixed anxiety and depressive disorder Dysthymic disorder documented in this encounter Additional Health Concerns Assessment Noted Time PHQ-9 Depression Total Score: 3 10/07/20 23 9:51 AM EST documented as of this encounter Care Teams Chili Pepper Grinder Relationship Specialty Start Date End Date Kaylah Foley MD [address] [place] [address] PCP - General Family Medicine 06/02/17 documented as of this encounter
--- OUTSIDE RECORDS SUMMARY | 2025-08-01 19:25 | XMS_ITS | Encounter Summary ---
Author Organization [employer] Address [address] [facility] 7t [place] [address] Care Team Providers Care Investment Officer Name Role Phone Kaylah Foley MD Primary Care Provider + Reason for Visit * Reason Onset Date Comments Med Refill 03/12/2023 Encounter Details Date Type Department Care Team ([facility] st Contact Info) Description 03/12/2023 Telephone [facility] MEDICINE [address] [place], [place] [phone] Kaylah Foley MD [address] [place], [place] [phone] Med Refill Social History Tobacco Use Types [...] (Percocet) 5-325 MG tablet Please sent to [facility] - [place], [place] - [address] [place] [address] documented in this encounter Plan of Treatment Upcoming Encounters Date Type Department Care Team (Late st Contact Info) Description 08/24/2025 1:30 PM EST Telemedicine [facility] MEDICINE [address] [place] [address] Arlet Quijano, RN 10/29/2025 3:30 PM EST Office Visit [facility] OPTOMETRY [address] [place] [address] Luisana Dhillon, OD [address] [place] [address] documented as of this encounter Visit Diagnoses Not on filedocumented in this encounter Care Teams Investment Officer Relationship Specialty Start Date End Date Kaylah Foley MD [address] [place] [address] PCP - General Family Medicine 06/02/17 documented as of this encounter
--- OUTSIDE RECORDS SUMMARY | 2025-08-01 19:25 | XMS_ITS | Encounter Summary ---
Author Organization [employer] Address [address] [place] [address] [address]t [place] [address] Care Team Providers Care Media Law Faculty Member Name Role Phone Kaylah Foley MD Primary Care Provider + Reason for Visit * Reason Comments Med Refill Encounter Details Date Type Department Care Team (Late st Contact Info) Description 02/04/2023 Refill [facility] [address] [place] [address] Kaylah Foley MD [address] [place] [address] Anxiety Social History Tobacco Use Types Packs/Day [...] Info) Description 08/24/2025 1:30 PM EST Telemedicine [facility] MEDICINE [address] [place] [address] Arlet Quijano RN 10/29/2025 3:30 PM EST Office Visit [facility] OPTOMETRY [address] [place] [address] Luisana Dhillon, OD [address] [place] [address] documented as of this encounter Visit Diagnoses Diagnosis Anxiety Anxiety state, unspecified documented in this encounter Care Teams Media Law Faculty Member Relationship Specialty Start Date End Date Kaylah Foley MD [address] [place] [address] PCP - General Family Medicine 06/02/17 documented as of this encounter
--- OUTSIDE RECORDS SUMMARY | 2025-08-01 19:25 | XMS_ITS | Encounter Summary ---
Author Organization [employer] Address [address] [facility] 7t [place] [address] Care Team Providers Care Home Care Associate Name Role Phone Kaylah Foley MD Primary Care Provider + Reason for Visit * Reason Comments Med Refill Encounter Details Date Type Department Care Team ([facility] st Contact Info) Description 05/16/2024 Refill [facility] [address] [place], [place] [phone] Erum Scott MD [address] [place], [place] [phone] Flaccid paraplegia (CMS/HCC) Social History Tobacco Use [...] Info) Description 08/24/2025 1:30 PM EST Telemedicine [facility] MED[facility]INE [address] [place] [address] Arlet Quijano, ROBERT 10/29/2025 3:30 PM EST Office Visit [facility] OPTOMETRY [address] [place] [address] Luisana Dhillon OD [address] [place] [address] documented as of this encounter Visit Diagnoses Diagnosis Flaccid paraplegia (CMS/HCC) (HCC) Paraplegia documented in this encounter Additional Health Concerns Assessment Noted Time PHQ-9 Depression Total Score: 3 10/07/20 23 9:51 AM EST documented as of this encounter Care Teams Home Care Associate Relationship Specialty Start Date End Date Kaylah Foley MD [address] [place] [address] PCP - General Family Medicine 06/02/17 documented as of this encounter
--- OUTSIDE RECORDS SUMMARY | 2025-08-01 19:25 | XMS_ITS | Encounter Summary ---
Author Organization [employer] Address [address] [facility] 7t [place] [address] Care Team Providers Care Grinder Lap Name Role Phone Kaylah Foley MD Primary Care Provider + Reason for Visit * Reason Comments Med Refill Encounter Details Date Type Department Care Team (Late st Contact Info) Description 10/09/2022 Refill [facility] MEDICINE [address] [place], [place] [phone] Palma Palacio MD [address] [place], [place] [phone] Other specified anxiety disorders Social History Tobacco [...] Info) Description 08/24/2025 1:30 PM EST Telemedicine [facility] MEDICINE [address] [place], [place] [phone] Arlet Quijano RN 10/29/2025 3:30 PM EST Office Visit [facility] OPTOMETRY [address] [place] [phone] Luisana Dhillon, OD [address] [place] [address] documented as of this encounter Visit Diagnoses Diagnosis Other specified anxiety disorders documented in this encounter Care Teams Grinder Lap Relationship Specialty Start Date End Date Kaylah Foley MD [address] [place] [address] PCP - General Family Medicine 06/02/17 documented as of this encounter
--- OUTSIDE RECORDS SUMMARY | 2025-08-01 19:25 | XMS_ITS | Data Portability ---
Author Organization [employer] Address [address] [place] [address] Care Team Providers Care Prop Maker Name Role Phone HIM YOEL OTHER Assessment Encounter Date Assessment Date Assessment LastModified by Organization Details LastModified Time 07/03/2024 07/03/2024 As noted, we were called to see this patient regarding concerns of penile pain. Evaluation in the field was performed by my continuous improvement facilitator colleague, as noted above, I provided real-time direction and supervision for this visit. The evaluation revealed same. Impression: Complex 63yo/m with hx of paraplegia and neurogenic bladder who self catheterizes who called for evaluation for continued penile pain. Patient is 63 and interviewed with help desk analyst, and medic in home reports patient was [...] symptoms, particularly worsening or change in symptoms. [email or web address] Not available 07/03/2024 18:36:24 Plan of Treatment Reminders Order Date Submit Date Provider Last Modified By Organization Details Last Modified Time Details Appointments None recorde d. Lab culture , urine 024 07/03/20 24 [place] [facility] (Centralized Electronic Ordering - All Locations), Patient Can Go To The Location Of Their Choice, [id number] 10:06:52 Referral None recorde d. Procedures None [...] culture,comp rehensive Final report Not Available [facility] ([facility]) [address] [facility] [place] [facility], [place], [address], 07/06/2024 12:06:12 07/03/20 24 07/06/2024 URINE CULTU RE,CO MPREH ENSIV E result 1 COMMEN T No growt h in 36 - 48 hours . Not Available [facility] ([facility]) [address], [place], [address], 07/06/2024 12:06:12 Result Notes None recorded. 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 4 16:34:42 Date Recorded Body temperature Respiratory rate Heart rate Oxygen saturation Oxygen saturation in Arterial blood by Pulse oximetry Systolic And Diastolic Provider Name and Address Organization Details Last Updated DateTime 4 98.9 [degF] 18 /min 70 /min 97 % 97 % 148/84 mm[Hg] Not Available [employer] 4 19:32:45 Date Recorded Heart rate Body temperature Oxygen saturation Oxygen saturation in Arterial blood by Pulse oximetry Respiratory rate Systolic And Diastolic Provider Name and Address Organization Details Last Updated DateTime 4 70 /min 97.5 [degF] 96 % 96 % 16 /min 119/72 mm[Hg] Not Available [facility] - [facility] 4 18:17:22 Social History None recorded. Functional Status None recorded. Mental Status None recorded. Family History Nothing Reported. Medical History No medical history recorded. Past Encounters Encounter ID Performer Location Encounter Start Date Encounter Closed Date Diagnosis/Indication Diagnosis SNOMED-CT Code Diagnosis ICD10 Code Diagnosis IMO Codes Diagnosis Note [id number] YAMINI LEMUS MD [facility] [address] [place] [phone] 12/17/2023 16:34:41 12/17/2023 19:30:05 Low blood pressure 96206223 I95.9 Evaluation in the field was performed by my continuous improvement facilitator colleague, as noted above, I provided real-time [...] BP was checked 3 times by the continuous improvement facilitator and the highest value of BP 76/48. Pt afebrile but with diffuse abdominal pain, guarding.G vasu hypotensio n, severe abdominal pain and the fact that pt lives by himself, he is a high risk of developing sepsis. Impression :Hypotensi on/ abdominal pain/ possible UTI Plan:Pt to be transporte d to [facility]. Expect called. Primary care, consider__ _ Dispositio n: [facility] [place] [id number] Jovan Hawk MD Main - [facility] [address] [place] [phone] 01/07/2024 19:32:43 01/08/2024 00:36:17 Chronic abdominal pain 684794777 R10.9 This 63-year-ol d male has had intermitte nt abdominal pain for over three weeks. He was recently evaluated in the ER with a negative workup. He continues to have pain not responding to Tylenol. I ordered Toradol 15 mg IM and suggested he alternate ibuprofen and Tylenol. He will follow-up with his PCP. The patient agreed with this plan. [id number] Mathew Nguyen MD Main - [facility] [address] [place] [phone] 07/03/2024 18:17:19 07/03/2024 20:33:59 Pain in penis [id number] N48.89 Health Concerns Section Related Observation LastModified by Organization Detai ls LastModified Time None Recorded Concern Status LastModified by Organization Details LastModified Time None Recorded Advance Directives Directive None Recorded Payers Insurance Date Sequence Insurance Name Policy Number Policy Joseph Covered Member ID Joseph Member ID Guarantor Name 07/03/2024 1 [facility] - DOS ON OR AFTER 2023 - DUAL ELIGIBLE - LONG TERM OPTIONS AND ONE CARE (MEDICARE REPLACEMENT/ADV ANTAGE - HMO) Erasmo Charles [id number] Erasmo eMlvin Notes Date Note Type Note Provider Name and Address Organization Details Recorded Time 12/17/2023 text/html [facility] Nurse Triage Notes (Freddy Trejo): Reason For Request: Pt reporting 7 out of 8 centralized abdominal pain 11/14/23 mbr went to ED for similar pain (not as strong pain as being reported today)>was given antibiotic which did not help as much. 12/14/23 mbr presented [facility] for similar pain and received antibiotic shot and was sent home with a medication that was 3x a day for pain and made him urinate redish color. 12/15/23 mbr worsened and went to ED> Chief Complaints: Pain Allergies: No Known Comments: Authorizer verified the member's name//address and phone number. [...] .................. .................. .................. .................. .................. .................. ............... Jewel Diameter Gauger Note From Daniel Herrera: Pt co lower clenching tingling abdominal pain , painful upon palpation, denies urinary pain fever sob confusion cp. baseline vitals assessed. Very hypotensive. Abdomen had pain upon palpitation. Pt wincing in pain. [facility] contacted and advised ER. Pt agreed. 911 called pt transported to [facility]. .................. .................. .................. .................. .................. .................. .................. ............... Disposition: Ravi LEMUS MD [address] [facility], [place], [address], [employer] 12/17/2023 18:30:41 01/07/2024 text/html ROS as noted in the HPI HPI: HX: Paraplegia following meningitis. Recurrent UTI with urinary retention. Anticoag on coumadin. Seen at [facility] ED 01/06/24 with negative work up for pain in lower abdomen. Patient reorts nausea and pain worse after eating currently 02/24. No vomiting and BM today. Team appt scheduled for Wednesday. .................. .................. .................. .................. .................. .................. .................. ............... [facility] Nurse Triage Notes (Freddy Trejo): Comments: Reviewed HPI Jovan Hawk MD [address] [facility], [place], [address], [employer] 01/07/2024 19:38:39 07/03/2024 text/html ROS as noted in the HPI HPI: MS called and member not on the line, she states member was in ER, he is home and can't sleep and has pain and wants someone to come see him. Authorizer obtained community arts centre manager ID# [id number]. Erasmo states he went to ER because [...] .................. .................. .................. .................. .................. .................. ............... Jew[employer] Diameter Gauger Note From Manish Thomas: Pt reports one week of suprapubic and u rethral pain. Pt is a paraplegic and straight [...] an in person eval. Red flags reviewed. [facility] Lab Orders: culture, urine: Performed .................. .................. .................. .................. .................. .................. .................. ............... Disposition: Fulfilled Mathew Nguyen MD [address] [facility], [place], [address], [employer] 07/03/2024 18:45:33
--- OUTSIDE RECORDS SUMMARY | 2025-08-01 19:25 | XMS_ITS | Encounter Summary ---
Author Organization [employer] Address [address] [facility] 7t [place] [address] Care Team Providers Care Bottle Packer Name Role Phone Kaylah Foley MD Primary Care Provider + Encounter Details Date Type Department Care Team ([facility] st Contact Info) Description 08/18/2024 Orders Only [facility] MEDICINE [address] [place], [place] [phone] Kaylah Foley MD [address] [place], [place] [phone] Mixed anxiety and depressive disorder (Primary Dx) [...] [facility] [address] [place] [address] Arlet Quijano RN 10/29/2025 3:30 PM EST Office Visit [facility] OPTOMETRY [address] [place] [address] Luisana Dhillon, OD [address] [place] [address] documented as of this encounter Visit Diagnoses Diagnosis Mixed anxiety and depressive disorder- Primary Dysthymic disorder documented in this encounter Additional Health Concerns Assessment Noted Time PHQ-9 Depression Total Score: 3 10/07/20 23 9:51 AM EST documented as of this encounter Care Teams Bottle Packer Relationship Specialty Start Date End Date Kaylah Foley MD [address] [place] [address] PCP - General Family Medicine 06/02/17 documented as of this encounter
--- OUTSIDE RECORDS SUMMARY | 2025-08-01 19:25 | XMS_ITS | Encounter Summary ---
Author Organization [employer] Address [address] [facility] 7[address] [place] [address] Care Team Providers Care Lens Inspector Name Role Phone Kaylah Foley MD Primary Care Provider + Encounter Details Date Type Department Care Team (Late st Contact Info) Description 09/13/2023 Abstract [facility] MEDICINE [address] [place], [place] [phone] Brenda Thompson Social History Tobacco Use Types [...] t he electric, gas, oil or water [employer] threatened to shut off services in your [...] Info) Description 08/24/2025 1:30 PM EST Telemedicine [facility] MEDICINE [address] [place] [address] Arlet Quijano, ROBERT 10/29/2025 3:30 PM EST Office Visit [facility] OPTOMETRY [address] [place] [address] Luisana Dhillon, OD [address] [place] [address] documented as of this encounter Visit Diagnoses Not on filedocumented in this encounter Additional Health Concerns Assessment Noted Time PHQ-9 Depression Total Score: 1 08/19/20 23 9:39 AM EDT documented as of this encounter Care Teams Lens Inspector Relationship Specialty Start Date End Date Kaylah Foley MD [address] [place] [address] PCP - General Family Medicine 06/02/17 documented as of this encounter
--- OUTSIDE RECORDS SUMMARY | 2025-08-01 19:25 | XMS_ITS | Encounter Summary ---
Author Organization [employer] Address [address] [facility] 7t [place] [address] Care Team Providers Care Holistic Specialist Name Role Phone Kaylah Foley MD Primary Care Provider + Reason for Visit * Reason Comments Med Refill Encounter Details Date Type Department Care Team ([facility] st Contact Info) Description 12/02/2023 Refill [facility] DIABETES/NUTRITION [address] [place], [place] [phone] Kaylah Foley MD [address] [place], [place] [phone] Anxiety Social History Tobacco Use Types Packs/Day [...] Info) Description 08/24/2025 1:30 PM EST Telemedicine [facility] MEDICINE [address] [place] [address] Arlet Quijano RN 10/29/2025 3:30 PM EST Office Visit [facility] OPTOMETRY [address] [place] [address] Luisana Dhillon, OD [address] [place] [address] documented as of this encounter Visit Diagnoses Diagnosis Anxiety Anxiety state, unspecified documented in this encounter Additional Health Concerns Assessment Noted Time PHQ-9 Depression Total Score: 3 10/07/20 23 9:51 AM EST documented as of this encounter Care Teams Holistic Specialist Relationship Specialty Start Date End Date Kaylah Foley MD [address] [place] [address] PCP - General Family Medicine 06/02/17 documented as of this encounter
--- OUTSIDE RECORDS SUMMARY | 2025-08-01 19:25 | XMS_ITS | Encounter Summary ---
Author Organization [email or web address] Address [address] [facility] 7t [place] [address] Care Team Providers Care Magnetic Resonance Imaging Director Name Role Phone Kaylah Foley MD Primary Care Provider + Reason for Visit * Reason Onset Date Comments Medication Question 07/05/2024 Encounter Details Date Type Department Care Team ([facility] st Contact Info) Description 07/05/[address] [facility] MEDICINE [address] [place], [place] [phone] Kaylah Foley MD [address] [place], [place] [phone] Medication Question Social History Tobacco Use Types [...] 1:30 PM EST Telemedicine [facility] MEDICINE [address] [place] [address] Arlet Quijano RN 10/29/2025 3:30 PM EST Office Visit [facility] OPTOMETRY [address] [place] [address] Luisana Dhillon, OD [address] [place] [address] documented as of this encounter Visit Diagnoses Not on filedocumented in this encounter Additional Health Concerns Assessment Noted Time PHQ-9 Depression Total Score: 3 10/07/20 23 9:51 AM EST documented as of this encounter Care Teams Magnetic Resonance Imaging Director Relationship Specialty Start Date End Date Kaylah Foley MD [address] [place] [address] PCP - General Family Medicine 06/02/17 documented as of this encounter
--- OUTSIDE RECORDS SUMMARY | 2025-08-01 19:25 | XMS_ITS | Encounter Summary ---
Author Organization [employer] Address [address] [facility] 7t [place] [address] Care Team Providers Care Medical Social Consultant Name Role Phone Kaylah Foley MD Primary Care Provider + Reason for Visit * Reason Comments Med Refill Encounter Details Date Type Department Care Team ([facility] st Contact Info) Description 04/17/[address] [facility]S [address] [place], [place] [phone] Kaylah Foley MD [address] [place], [place] [phone] Mixed anxiety and depressive disorder Social History [...] Description 08/24/2025 1:[address] [facility] MEDICINE [address] [place] [address] Arlet Quijano, ROBERT 10/29/2025 3:30 PM EST Office Visit [facility] OPTOMETRY [address] [place], [place] [phone] Luisana Dhillon, OD [address] [place] [address] documented as of this encounter Visit Diagnoses Diagnosis Mixed anxiety and depressive disorder Dysthymic disorder documented in this encounter Additional Health Concerns Assessment Noted Time PHQ-9 Depression Total Score: 3 10/07/20 23 9:51 AM EST documented as of this encounter Care Teams Medical Social Consultant Relationship Specialty Start Date End Date Kaylah Foley MD [address] [place] [address] PCP - General Family Medicine 06/02/17 documented as of this encounter
--- OUTSIDE RECORDS SUMMARY | 2025-08-01 19:25 | XMS_ITS | Clinical Summary ---
Author Organization [employer] Address [address] [facility] 7t [place] [address] Care Team Providers Care Emergency Detail Driver Name Role Phone Kaylah Foley MD Primary Care Provider + Allergies No known active allergies Medications * This document contains information received from the source organization and may not represent a complete record from that organization. Ascorbic Acid (vitamin C) 500 MG tablet Take 1,000 mg by mouth in the morning. 023 Active fosfomycin (Monurol) 3 g packet TAKE [...] AT BEDTIME NEEDED for SLEEP 28 tablet 025 Active clonazePAM (KlonoPIN) 0.5 MG tabletIndications :Mixed anxiety and depressive disorder TAKE 1 TABLET BY MOUTH TWICE DAILY IN THE MORNING AND AT BEDTIME NEEDED FOR ANXIETY 56 tablet 025 2024 Active levoFLOXacin (Levaquin) 750 MG tablet Take 1 tablet (750 mg) by mouth Once per day for 7 days. 7 tablet 025 2024 Active polycarbophil (Fibercon) 625 MG tablet Take 1 tablet (625 mg) by mouth 2 times daily. 60 tablet 11 024 2024 clonazePAM (KlonoPIN) 0.5 MG tabletIndications :Mixed anxiety and depressive disorder TAKE 1 TABLET BY MOUTH TWICE DAILY IN THE MORNING AND AT BEDTIME NEEDED FOR ANXIETY FOR UP TO 28 DAYS 56 tablet 025 2024 Discontinued Active Problems Problem Noted Date Diagnosed [...] to control anxiety and depression in the intermediate, pharmaco education re effects and side effects [...] catheter. 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 He is wheelchair-bound and self caths several times per day He needs assistance on all ADLs although he tries to be independent. Advised to continue exercise, continue with HAT BAND ATTACHER therapies We discussed about skin moisturizing, change position to prevent pressure sores. 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 Due to wheelchair bound condition, he cont be at risk of DVT. Will consult with hematology to see if there is an alternative, newer anticoagulant that has not yet been approved for ferry terminal agent DVT prophylaxis Vitamin D deficiency 04/04/2018 Restless [...] in the green disposal bin, Frida Stephens, [facility] witnessed the procedure. No need for addtl [...] off anticoagulant. 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 If not needed will continue oxycontin [...] cont slow taper and will FU with WATER ANALYST nurse We have done [employer] education re [...] Encounters Date Type Department Care Team Description 08/01/2025 9:00 AM EDT Office Visit [facility] [address] [place] [phone] Pearl Dimas NP Dysuria (Primary Dx); Urinary tract infection associated with catheterization of urinary tract, unspecified indwelling urinary catheter type, initial encounter 08/01/2025 Travel 07/09/2025 Refill [facility] [address] [place] [address] Palma Palacio MD Mixed anxiety and depressive disorder 06/28/2025 Orders Only GENERIC EXTERNAL DATA DEPARTMENT Provider, Generic External Data 06/26/2025 Orders Only GENERIC EXTERNAL DATA DEPARTMENT Provider, Generic External Data 06/22/2025 9:30 AM EDT Telemedicine [facility] [address] [place] [address] Arlet Quijano RN Long-term current use of benzodiazepine 06/22/2025 Travel 06/21/2025 11:45 AM EDT Office Visit [facility] [address] [place] [address] Kaylah Foley MD Long-term current use of benzodiazepine (Primary Dx); On continuous oral anticoagulation; Tubular adenoma of colon; Mixed anxiety and depressive disorder 06/21/2025 Travel 06/20/2025 Telephone [facility] [address] [place] [phone] Kaylah Foley MD chart prep 06/11/2025 8:40 AM EDT Office Visit [facility] [address] [place] [address] [phone] Yanci Boyd MD UTI symptoms 06/11/2025 Refill [facility] [address] [place] [address] Kaylah Foley MD Mixed anxiety and depressive disorder 06/11/2025 Travel 05/16/2025 Refill [facility] [address] [place] [address] Kaylah Foley MD Mixed anxiety and depressive disorder 05/03/2025 Refill [facility] [address] [place], [place] [phone] Kaylah Foley MD from Last 3 Months [...] Q uit: 2003 Passive Smoke Exposure: Past Tobacco Cessation:Counseling Given: [...] Mass Index 22.47 08/01/2025 9:01 AM EDT Plan of Treatment Upcoming Encounters Date Type Department Care Team (Late st Contact Info) Description 08/24/2025 1:30 PM EST Telemedicine [facility] [address] [place] [address] Arlet Quijano RN 10/29/2025 3:30 PM EST Office Visit [facility] [address] [place] [address] Luisana Dhillon, OD [address] [place] [address] Health Maintenance Due Date Last Done Comments CT Colonography 1960 FIT DNA/Cologuard 1960 FIT 1960 FOBT 1960 Sigmoidoscopy 1960 Alcohol/Substance Use Screening 1970 Depression Screening 10/24/2025 10/24/2024, 10/07/20 23 SDOH Screening 10/24/2025 10/24/2024 Tobacco Screening 08/01/2026 08/01/2025 Colonoscopy 02/29/2028 02/28/2025 Colorectal Cancer Screening 02/29/2028 Lipid Panel 10/07/2028 10/07/2023, 05/18, 11/14/2020, Additional history exists DTaP/Tdap/Td Vaccines (3 - Td or Tdap) 08/19/2033 08/19/2023, 01/27/2013, 10/14/2006 Hepatitis B Vaccines Completed 01/16/2014, 01/27/2013, 07/31/2010 Zoster Vaccines Completed 03/26/2021, 09/16/2020 Hepatitis C Screening Completed 10/07/2023 RSV Patients and Patients Aged 60 years or older Completed 10/13/2023 Pneumococcal Vaccine: 50+ Years Completed 07/10/2024, 10/14/2006 COVID-19 Vaccine Completed 06/28/2025, , 07/23/2023, Additional history exists Influenza Vaccine Completed 06/28/2025, , 07/23/2023, Additional history exists HIB Vaccines Aged Out No longer eligi [...] topic Meningococcal Vaccine Aged Out No valeriy setf eligible based on patient's age to complete this topic RSV under 20 months Aged Out No longe r eligible based on patient's age to complete this topic Rotavirus Vaccines Aged Out No longer eligible based on patient's age to complete this topic Procedures Procedure Name Priority Date/Time Associated Diagnosis Comments POCT URINALYSIS DIPSTICK Routine 08/01/2025 9:53 AM EDT Dysuria CULTURE, URINE, ROUTINE Routine 06/28/2025 9:02 AM EDT CYTOPATH-CELL ENHANCED Routine 06/26/2025 6:08 PM EDT POCT URINALYSIS DIPSTICK Routine 06/11/2025 9:09 AM EDT UTI symptoms HM COLONOSCOPY Routine 02/28/2025 HEPATITIS PANEL, GENERAL Routine 10/07/2023 10:48 AM EST Encounter for preventive health examination Presence of intrathecal baclofen pump LIPID PANEL WITH REFLEX TO DIRECT LDL Routine 10/07/2023 10:48 AM EST Encounter for preventive health examination from Last 3 Months or Most Recently Relevant to Health Maintenance Results * (ABNORMAL) POCT Urinalysis (08/01/2025 9:53 AM EDT) Only the most recent of2 [...] Media Lot # [id number] Lot# Expiration Date [id number] Urine (Urine, Random) 08/01/2025 9:53 AM EDT Pearl Dimas NP POINT OF CARE TEST ENTER/EDIT OR DERABLES Final Result * Culture, Urine, Routine (06/28/2025 9:02 AM EDT) Urine Urine specimen from urinary conduit / Unknown 06/28/2025 9:02 AM EDT 06/28/2025 12:11 PM EDT Comment:Urine Cath Narrative [facility] - 06/30/2025 7:52 AM EDT Klebsiella pneumoniae Quant > 100,000 cfu/mL Klebsiella pneumoniae: Ampicillin >=32(R) Klebsiella pneumoniae: Cefazolin 2(S) Klebsiella pneumoniae: Cefepime <=0.12(S) Klebsiella pneumoniae: Ceftriaxone <=0.25(S) Klebsiella pneumoniae: Ciprofloxacin <=0.06(S) Klebsiella pneumoniae: Gentamicin <=1(S) Klebsiella pneumoniae: Nitrofurantoin 32(S) Klebsiella pneumoniae: Trimethoprim/Sulfamethoxazole >=320(R) Specimen Source: Urine Catheterized us Generic External Data Provider LAB MICROBIOLOGY - GENERAL ORDERABLES Final Result [facility] [address] [place] [phone] * Cytopath-cell enhanced (06/26/2025 6:08 PM EDT) 06/26/2025 6:08 PM EDT 06/27/2025 9:58 AM EDT [facility] - 06/27/2025 4:32 PM EDT ----- ------- Name: Erasmo Ignacio Age/Sex: 64/M : 1960 Unit#: [id number] Attend Dr: Latasha Pike [facility] Re06/26/25 Status: DEP [facility]F [facility] Disch: ----- ------- SPEC : [id number] RECD: 06/27/25 STATUS: FLORY DURON NUM: [id number] [place]: 06/26/[address] [facility] [address]: Latasha Pike [facility]- ENTERED: 06/27/25-1009 SP TYPE: Cytology OT DR: Kaylah Foley MD ORDERED: Cyto-enhanced Diagnosis [...] developed and their performance characteristics determined by [facility]. They have not been cleared or approved by the U.S. Food and Drug Administration (FDA). However, the FDA has determined that such clearance or approval is not necessary. This laboratory is certified under the Clinical Laboratory Improvement Amendments of 1988 (CLIA) as qualified to perform high complexity clinical laboratory testing. Copies To: Kayalh Foley MD [address] [id number] Latasha Pike [facility] [address] [place] [address] Dr. Garland [address] [place] [address] [email or web address] CONTINUED ON NEXT PAGE ----- ------- Name: Erasmo Ignacio Age/Sex: 64/M : 1960 Unit#: [id number] Attend Dr: Latasha Pike [facility] Status: DEP [facility]F [facility] Disch: ----- ------- SPEC : [id number] RECD: 06/27/25 STATUS: FLORY DURON NUM: [id number] [place]: 06/26/[address] [facility] [address]: Latasha Pike [facility]- ENTERED: 06/27/25-1009 SP TYPE: Cytology OTHR DR: Kaylah Foley MD ORDERED: Cyto-enhanced ----- ------- Signed (signature on file) [facility] [place] [employer] 06/27/[id number] ----- ------- END OF REPORT Generic External Data Provider LAB CYTOLOGY HA PETERSEN Final Result [facility] [address] [place] [phone] * (ABNORMAL) Hm Colonoscopy (02/28/2025) Colonoscopy Abnormal( A) Normal Comment:TA's x 3 us Kaylah Foley MD HEALTH MAINTENANCE Final Result * (ABNORMAL) Lipid Panel with Reflex to Direct LDL (10/07/2023 10:48 AM EST) Triglycerides 75 <150 mg/dL [facility] Comment:Desirable Triglyceri de: less than 150 mg/dLBorderline High Triglyceride 150-199 mg/dLHigh Triglyceride: 200-499 mg/dLVery High Triglyceride: greater than or equal to 5OO mg/dL Cholesterol 166 <200 mg/dL [facility] Comment:Desirable Cholestero l: less than 200 mg/dLBorderline High Cholesterol: 200-239 mg/dLHigh Cholesterol: greater than 239 mg/dL LDL Cholesterol Calculated 112(H) <100 mg/dL [facility] Comment:Desirable LDL: less than 100 mg/dLNear Optimal/Above Optimal LDL: 110- 129 mg/dLBorderline High LDL: 130-159 mg/dLHigh LDL: 160-189 mg/dLVery High LDL: greater than or equal to 190 mg/dL HDL Cholesterol 39(L) >40 mg/dL [facility] Comment:Desirable HDL: great er than 40 mg/dL Note: This HDL assay may give artificially low results in patients with liver disease. Blood 10/07/2023 10:4 8 AM EST 10/07/2023 11:22 AM EST Kaylah Foley MD LAB BLOOD ORDERABLES Fin al Result Performing Organization Address [facility] de Phone Number [facility] [address] [place] [phone] * Hepatitis Panel, General (10/07/2023 10:48 AM EST) Hepatitis A IgM Nonreactive Nonreactive [facility] Comment:IgM antibodies to REED V not detected; does not exclude earlyacute or recovered HAV infection. ~Hepatitis B Surface Antibody REACTIVE Nonreactive [facility] Comment:REACTIVE: > 11.99 mI U/mL Hepatitis B Core Antibody Reactive Nonreactive [facility] Comment:Presumptive evidence of anti-HBc. Hepatitis C Antibody Nonreactive Nonreactive [facility] Comment:Antibodies to HCV no t detected; does not exclude early acuteHCV infection. Hepatitis B Surface Ag Negative Negative [facility] Blood 10/07/2023 10:4 8 AM EST 10/07/2023 11:22 AM EST Kaylah Foley MD LAB BLOOD ORDERABLES Fin al Result Performing Organization Address [facility] Co de Phone Number [facility] [address] [place] [phone] from Last 3 Months or Most Recently Relevant to Health Maintenance Insurance [facility] [employer] (O D-SNP) [place]OS [id number] * Guarantor: Erasmo Ignacio Account Type Relation to Patient Date of Phone Billing Address Personal/Family Self [address] Care Teams Emergency Detail Driver Relationship Specialty Start Date End Date Kaylah Foley MD [address] [place] [phone] PCP - General Family Medicine 06/02/17
--- OUTSIDE RECORDS SUMMARY | 2025-08-01 19:26 | XMS_ITS | Encounter Summary ---
Author Organization [employer] Address [address] [facility] 7t [place] [address] Care Team Providers Care Assistant Credit Manager Name Role Phone Kaylah Foley MD Primary Care Provider + Reason for Visit * Reason Comments Med Refill Encounter Details Date Type Department Care Team ([facility] st Contact Info) Description 05/08/2024 Refill [facility] [address] [place], [place] [phone] Kaylah Foley MD [address] [place], [place] [phone] Anxiety Social History Tobacco Use Types Packs/Day [...] Info) Description 08/24/2025 1:30 PM EST Telemedicine [facility] [address] [place] [address] Arlet Quijano RN 10/29/2025 3:30 PM EST Office Visit [facility] [address] [place] [address] Luisana Dhillon, OD [address] [place] [address] documented as of this encounter Visit Diagnoses Diagnosis Anxiety Anxiety state, unspecified documented in this encounter Additional Health Concerns Assessment Noted Time PHQ-9 Depression Total Score: 3 10/07/20 23 9:51 AM EST documented as of this encounter Care Teams Assistant Credit Manager Relationship Specialty Start Date End Date Kaylah Foley MD [address] [place] [address] PCP - General Family Medicine 06/02/17 documented as of this encounter
--- OUTSIDE RECORDS SUMMARY | 2025-08-01 19:26 | XMS_ITS | Encounter Summary ---
Author Organization [employer] Address [address] [facility] [address]t [place] [address] Care Team Providers Care Materials Management Supervisor Name Role Phone Kaylah Foley MD Primary Care Provider + Encounter Details Date Type Department Care Team (Latest Contact Info) Description 08/01/2025 Travel Social History Tobacco Use Types Packs/Day [...] Description 08/24/2025 1:30 PM EST Telemedicine [facility] [address] [place] [address] Arlet Quijano RN 10/29/2025 3:30 PM EST Office Visit [facility] [address] [place] [address] Luisana Dhillon, OD [address] [place] [address] documented as of this encounter Visit Diagnoses Not on filedocumented in this encounter Additional Health Concerns Assessment Noted Time PHQ-9 Depression Total Score: 3 10/07/20 23 9:51 AM EST documented as of this encounter Care Teams Materials Management Supervisor Relationship Specialty Start Date End Date Kaylah Foley MD [address] [place] [address] PCP - General Family Medicine 06/02/17 documented as of this encounter
== END 2025-08-01 16:20 | disposition home or self-care (01) ==
LOC: HO.HHCLNP 16:19
PROVIDERS: Visit Provider Nurse Practitioner Family
DX: R30.0 Dysuria (principal)
CPT/HCPCS: 87086; 87088; 87186

== ENCOUNTER 2025-09-04 16:07 | Outpatient (REF) | payer OTHER, SELFPAY ==
[2025-09-04 16:50] LABS: Appearance Urine Cloudy; Glucose Urine UA Negative (Negative); PH 6.0 (5.0-9.0); Specific Gravity - Urine 1.015 (1.005-1.025); UMIC TRIGGER UACC YES
[2025-09-04 17:17] LABS: UACC Culture Trigger YES
--- OUTSIDE RECORDS SUMMARY | 2025-09-05 13:21 | XMS_ITS | Data Portability ---
Author Organization [facility], [facility] Address [address] [place] [address] Care Team Providers Care Senior Sales Operations Manager Name Role Phone HIM YOEL OTHER Assessment Encounter Date Assessment Date Assessment LastModified by Organization Details LastModified Time 07/03/2024 07/03/2024 As noted, we were called to see this patient regarding concerns of penile pain. Evaluation in the field was performed by my enterprise infrastructure architect colleague, as noted above, I provided real-time direction and supervision for this visit. The evaluation revealed same. Impression: Complex 63yo/m with hx of paraplegia and neurogenic bladder who self catheterizes who called for evaluation for continued penile pain. Patient is 63 and interviewed with sales manager, and medic in home reports patient was [...] symptoms, particularly worsening or change in symptoms. [email or web address] Not available 07/03/2024 18:36:24 Plan of Treatment Reminders Order Date Submit Date Provider Last Modified By Organization Details Last Modified Time Details Appointments None recorde d. Lab culture , urine 024 07/03/20 [address] [place] [address] (Centralized Electronic Ordering - All Locations), Patient Can Go To The Location Of Their Choice, [address] 10:06:52 Referral None recorde d. Procedures None [...] culture,comp rehensive Final report Not Available [facility] ([facility]) [address], [place], [address], 07/06/2024 12:06:12 07/03/20 24 07/06/2024 URINE CULTU RE,CO MPREH ENSIV E result 1 COMMEN T No growt h in 36 - 48 hours . Not Available [facility] ([facility]) [address], [place], [address], 07/06/2024 12:06:12 Result Notes None recorded. Medical [...] Not Available No t Available Artificial Tears ([id number] ll-glycerin) 1 %-0.2 %-0.2 % eye drops INSTILL 1 DROP INTO THE AFFECTED EYE(S) FOUR TIMES DAILY active Not Available Not Available No t Available Vitals Date Recorded Heart rate Body weight Oxygen saturation Oxygen saturation in Arterial blood by Pulse oximetry Body temperature Respiratory rate Systolic And Diastolic Provider Name and Address Organization Details Last Updated DateTime 4 76 /min 67268.9 6 g 95 % 95 % 97.6 [degF] 18 /min 76/48 mm[Hg] Not Available [facility] - production 4 16:34:42 Date Recorded Body temperature Respiratory rate Heart rate Oxygen saturation Oxygen saturation in Arterial blood by Pulse oximetry Systolic And Diastolic Provider Name and Address Organization Details Last Updated DateTime 4 98.9 [degF] 18 /min 70 /min 97 % 97 % 148/84 mm[Hg] Not Available [facility] - production 4 19:32:45 Date Recorded Heart rate Body temperature Oxygen saturation Oxygen saturation in Arterial blood by Pulse oximetry Respiratory rate Systolic And Diastolic Provider Name and Address Organization Details Last Updated DateTime 4 70 /min 97.5 [degF] 96 % 96 % 16 /min 119/72 mm[Hg] Not Available [facility] - [facility] 4 18:17:22 Social History None recorded. Functional Status None recorded. Mental Status None recorded. Family History Nothing Reported. Medical History No medical history recorded. Past Encounters Encounter ID Performer Location Encounter Start Date Encounter Closed Date Diagnosis/Indication Diagnosis SNOMED-CT Code Diagnosis ICD10 Code Diagnosis IMO Codes Diagnosis Note [id number] YAMINI LEMUS MD [facility] - [facility] [address] [place] [address] 12/17/2023 16:34:41 12/17/2023 19:30:05 Low blood pressure 38491125 I95.9 Evaluation in the field was performed by my enterprise infrastructure architect colleague, as noted above, I provided real-time [...] BP was checked 3 times by the enterprise infrastructure architect and the highest value of BP 76/48. Pt afebrile but with diffuse abdominal pain, guarding.G vasu hypotensio n, severe abdominal pain and the fact that pt lives by himself, he is a high risk of developing sepsis. Impression :Hypotensi on/ abdominal pain/ possible UTI Plan:Pt to be transporte d to [facility]. Expect called. Primary care, consider__ _ Dispositio n: [facility] [place] [id number] Jovan Hawk MD Main - [facility] [address] [place] [phone] 01/07/2024 19:32:43 01/08/2024 00:36:17 Chronic abdominal pain 441786249 R10.9 This 63-year-ol d male has had intermitte nt abdominal pain for over three weeks. He was recently evaluated in the ER with a negative workup. He continues to have pain not responding to Tylenol. I ordered Toradol 15 mg IM and suggested he alternate ibuprofen and Tylenol. He will follow-up with his PCP. The patient agreed with this plan. [id number] Mathew Nguyen MD Main - [facility] [address] [place] [phone] 07/03/2024 18:17:19 07/03/2024 20:33:59 Pain in penis 136264522 N48.89 Health Concerns Section Related Observation LastModified by Organization Detai ls LastModified Time None Recorded Concern Status LastModified by Organization Details LastModified Time None Recorded Advance Directives Directive None Recorded Payers Insurance Date Sequence Insurance Name Policy Number Policy Joseph Covered Member ID Joseph Member ID Guarantor Name 07/03/2024 1 [facility] - DOS ON OR AFTER 2023 - DUAL ELIGIBLE - [employer] AND ONE CARE (MEDICARE REPLACEMENT/ADV ANTAGE - HMO) Erasmo Charles [id number] Erasmo Melvin Notes Date Note Type Note Provider Name and Address Organization Details Recorded Time 12/17/2023 text/html [facility] Nurse Triage Notes (Freddy Trejo): Reason For Request: Pt reporting 7 out of 8 centralized abdominal pain 11/14/23 mbr went to ED for similar pain (not as strong pain as being reported today)>was given antibiotic which did not help as much. 12/14/23 mbr presented to [facility] for similar pain and received antibiotic shot and was sent home with a medication that was 3x a day for pain and made him urinate redish color. 12/15/23 mbr worsened and went to ED> Chief Complaints: Pain Allergies: No Known Comments: Restaurant Managing Partner verified the member's name//address and phone number. [...] .................. .................. .................. .................. .................. .................. ............... Pipe Bending Machine Operator Note From Daniel Herrera: Pt co lower clenching tingling abdominal pain , painful upon palpation, denies urinary pain fever sob confusion cp. baseline vitals assessed. Very hypotensive. Abdomen had pain upon palpitation. Pt wincing in pain. [facility] contacted and advised ER. Pt agreed. 911 called pt transported to [facility]. .................. .................. .................. .................. .................. .................. .................. ............... Disposition: Ravi LEMUS MD [address] [facility], [place], [phone], [facility] 12/17/2023 18:30:41 01/07/2024 text/html ROS as noted in the HPI HPI: HX: Paraplegia following meningitis. Recurrent UTI with urinary retention. Anticoag on coumadin. Seen at [facility] ED 01/06/24 with negative work up for pain in lower abdomen. Patient reorts nausea and pain worse after eating currently 02/24. No vomiting and BM today. Team appt scheduled for Wednesday. .................. .................. .................. .................. .................. .................. .................. ............... [facility] Nurse Triage Notes (Freddy Trejo): Comments: Reviewed HPI Jovan Hawk MD [address] [facility], [place], [phone], [employer] 01/07/2024 19:38:39 07/03/2024 text/html ROS as noted in the HPI HPI: MS called and member not on the line, she states member was in ER, he is home and can't sleep and has pain and wants someone to come see him. Restaurant Managing Partner obtained shale processing technician ID# [id number]. Erasmo states he went to ER because [...] .................. .................. .................. .................. .................. .................. ............... Pipe Bending Machine Operator Note From Manish Thomas: Pt reports one [...] an in person eval. Red flags reviewed. [facility] Lab Orders: culture, urine: Performed .................. .................. .................. .................. .................. .................. .................. ............... Disposition: Fulfilled Mathew Nguyen MD [address] [facility], [place], [phone], [facility] 07/03/2024 18:45:33
== END 2025-09-04 16:08 | disposition home or self-care (01) ==
LOC: HO.LNP 16:07
PROVIDERS: Visit Provider Family Medicine
DX: N39.0 Urinary tract infection, site not specified (principal)
CPT/HCPCS: 81001; 87086; 87088; 87186

== ENCOUNTER 2025-10-03 16:30 | Outpatient (REF) | payer OTHER, SELFPAY ==
--- OUTSIDE RECORDS SUMMARY | 2025-10-03 10:00 | XMS_ITS | Encounter Summary ---
Author Organization [employer] Address [address] [facility] [address] [place] [address] Care Team Providers Care Pipelaying Fitter Name Role Phone Kaylah Foley MD Primary Care Provider + Reason for Visit * Reason Comments UTI Encounter Details Date Type Department Care Team ([facility] st Contact Info) Description 10/03/2025 10:00 AM EST Office Visit [facility] [address] [place], [place] [phone] Manish Argueta MD [address] [place], [place] [phone] UTI symptoms Social History Tobacco Use Types [...] Erasmo Moscoso is a 64 y.o. male. 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 Followed by [facility]. Lives alone. Not employed. Former [...] Description 10/29/2025 3:30 PM EST Office Visit [facility] [address] [place], [place] [phone] Luisana Dhillon, OD [address] [place], [place] [phone] 11/30/2025 1:30 PM EST Telemedicine [facility] [address] [place], [place] [phone] Arlet Quijano RN Scheduled Orders Name Type Priority Associated Diagnoses Orde r Schedule Urine Culture Routine Microbiology Routine UTI symptoms Ordered: 10/03/2025 documented as of this encounter Procedures Procedure Name Priority Date/Time Associated Diagnosis Comments POCT URINALYSIS DIPSTICK Routine 10/03/2025 10:19 AM EST UTI symptoms documented in this encounter Results * (ABNORMAL) POCT Urinalysis (10/03/2025 10:19 AM [...] Urine (Urine, Random) 10/03/2025 10:19 AM EST Manish Argueta MD POINT OF CARE TEST ENTER/EDIT OR DERABLES Final Result documented in this encounter Visit Diagnoses Diagnosis UTI symptoms documented in this encounter Additional Health Concerns Assessment Noted Time PHQ-9 Depression Total Score: 3 10/07/20 23 9:51 AM EST documented as of this encounter Care Teams Pipelaying Fitter Relationship Specialty Start Date End Date Kaylah Foley MD [address] [place] [phone] PCP - General Family Medicine 06/02/17 documented as of this encounter
--- OUTSIDE RECORDS SUMMARY | 2025-10-03 20:59 | XMS_ITS | Clinical Summary ---
Author Organization [employer] Address [address] [facility] 7t [place] [address] Care Team Providers Care Warehouse Helper Name Role Phone Kaylah Foley MD Primary [...] DAILY PO) Take by mouth. Activ e lidocaine 2 % gelIndications:Po stprocedural male urethral [...] AT BEDTIME NEEDED for SLEEP 28 tablet 09/25/20 25 4:15 PM EST 025 Active Eliquis 2.5 MG tablet TAKE 1 TABLET BY MOUTH TWICE DAILY. STOP warfarin 60 tablet 11 09/27/20 25 4:04 PM EST Active clonazePAM (KlonoPIN) 0.5 MG tabletIndications :Mixed anxiety and depressive disorder TAKE 1 TABLET BY MOUTH TWICE DAILY IN THE MORNING AND AT BEDTIME NEEDED FOR ANXIETY 56 tablet Active cefuroxime (Ceftin) 500 MG tablet Take 1 tablet (500 mg) by mouth 2 times daily for 7 days. 14 tablet 10/03/20 25 11:32 AM EST 2024 Active acetaminophen (Tylenol) 500 MG tablet Take 2 tablets (1,000 mg) by mouth every 6 (six) hours if needed for moderate pain or fever for up to 25 doses. 50 tablet Active apixaban (Eliquis) 2.5 MG tablet Take 1 tablet (2.5 mg) by mouth 2 times daily. DC warfarin 60 tablet 11 024 2024 Discontinued clonazePAM (KlonoPIN) 0.5 MG tabletIndications :Mixed anxiety and depressive disorder Take 1 tablet (0.5 mg) by mouth every 12 (twelve) hours if needed for anxiety for up to 28 days. 56 tablet 2024 Discontinued nitrofurantoin, macrocrystal-mono hydrate, (Macrobid) 100 MG capsuleIndication s:Chronic UTI Take 1 capsule (100 mg) by mouth 2 times daily for 7 days. 14 capsule 09/04/20 11:29 AM EST 2024 clonazePAM (KlonoPIN) 0.5 MG tabletIndications :Mixed anxiety and depressive disorder Take 1 tablet (0.5 mg) by mouth if needed in the morning and at bedtime for anxiety. Do not start before September 06, 2025. 56 tablet 09/06/20 3:22 PM EST 2024 Discontinued ciprofloxacin (Cipro) 500 MG tablet Take 500 mg by mouth 2 times daily. 2024 Discontinued(R eorder (will not trigger notification to Pharmacy)) ciprofloxacin (Cipro) 500 MG tabletIndications :Chronic UTI Take 1 tablet (500 mg) by mouth 2 times daily for 5 days. 10 tablet 025 2024 Discontinued ciprofloxacin (Cipro) 500 MG tabletIndications :Chronic UTI Take 1 tablet (500 mg) by mouth 2 times daily for 5 days. 10 tablet 025 2024 Active Problems Problem Noted Date Diagnosed Date Tubular adenoma of colon 06/21/2025 Assessment & Plan (09/15/2025 7:50 PM EST): Needs follow-up colonoscopy, gave him information regarding referral order in the summer. Long-term current use of benzodiazepine 04/09/20 Assessment & Plan (09/15/2025 7:49 PM EST): Patient is on low-dose Klonopin once to twice a day. We have done [employer] education re opiate side effects including dizziness, somnolence, possible increase of anxiety, dependance, etc. Patient is aware of the importance of avoiding any activity that requires vigilance while taking these meds including driving. We have discussed re avoiding diversion of medication, including giving pills to relatives. Patient is to keep medications in a safe place and is aware that rx will not be replaced if lost or stolen. 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 He is off Coumadin now for over a year, doing well on Eliquis. Continue Eliquis 2.5 mg BID. Assessment & Plan (10/24/2024 2:02 PM EST): [...] and depressive disorder 03/01/2023 Assessment & Plan (09/15/2025 7:51 PM EST): Currently on clonazepam 0.5 mg twice daily + Ambien nightly. He is doing well, denies increased anxiety or somnolence. He has been off SSRIs for more than 6 months, he declined referral to counselor and he is able to reach out for safety. Follow-up in 4 months Assessment & Plan (04/03/2025 3:05 PM EDT): [...] to control anxiety and depression in the nursing home, pharmaco education re effects and side [...] catheter. 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 He is wheelchair-bound and self caths several times per day He needs assistance on all ADLs although he tries to be independent. Advised to continue exercise, continue with ACTIVITY DIRECTOR therapies We discussed about skin moisturizing, change position to prevent pressure sores. 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 Due to wheelchair bound condition, he cont be at risk of DVT. Will consult with hematology to see if there is an alternative, newer anticoagulant that has not yet been approved for procedure manager DVT prophylaxis Vitamin D deficiency 04/04/2018 Restless [...] in the green disposal bin, Frida Stephens, [facility] witnessed the procedure. No need for addtl [...] off anticoagulant. 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 If not needed will continue oxycontin [...] cont slow taper and will FU with MOTEL CLERK nurse We have done [employer] education re [...] Encounters Date Type Department Care Team Description 10/03/2025 10:00 AM EST Office Visit [facility] [address] [place] [phone] Manish Argueta MD UTI symptoms 10/03/2025 Travel 10/03/2025 Refill [facility] [address] [place] [address] Kaylah Foley MD Mixed anxiety and depressive disorder 09/25/2025 Refill [facility] [address] [place] [address] Kaylah Foley MD 09/19/2025 Refill [facility] [address] [place] [phone] Kaylah Foley MD 09/06/2025 Orders Only [facility] [address] [place] [phone] Kasey Tay MD Chronic UTI (Primary Dx) 09/06/2025 Results Follow-Up [facility] [address] [place] [phone] Kasey Tay MD Culture, Urine, Routine 09/04/2025 8:40 AM EST Office Visit [facility] [address] [address] Kasey Tay MD Chronic UTI (Primary Dx) 09/04/2025 Orders Only [facility] [address] [place] [phone] Kasey Tay MD 09/04/2025 Telephone [facility] [address] [place] [phone] Kaylah Foley MD Other 09/04/2025 Refill [facility] [address] [place] [address] Kaylah Foley MD Mixed anxiety and depressive disorder 09/04/2025 Travel 08/24/2025 1:30 PM EST Telemedicine [facility] [address] [place] [address] 1945[address] Arlet Quijano, RN Long-term current use of benzodiazepine 08/24/2025 Telephone [facility] [address] [place] [phone] Arlet Quijano, RN LOIDA scoring 08/24/2025 Travel 08/08/2025 Refill [facility] [address] [place] [address] Kaylah Foley MD Mixed anxiety and depressive disorder 08/07/2025 Telephone [facility] [address] [place] [address] Pearl Dimas, LEONELA Status Check 08/07/2025 Refill [facility] [address] [place] [address] Kaylah Foley MD Mixed anxiety and depressive disorder 08/06/2025 Refill [facility] [address] [place] [address] Kaylah Foley MD Mixed anxiety and depressive disorder 08/03/2025 Results Follow-Up [address] [address] Pearl Dimas, LEONELA POCT Urinalysis, Culture, Urine, Routine 08/01/2025 9:00 AM EDT Office Visit [address] [address] Pearl Dimas, LEONELA Dysuria (Primary Dx); Urinary tract infection associated with catheterization of urinary tract, unspecified indwelling urinary catheter type, initial encounter 08/01/2025 Travel 07/09/2025 Refill [facility] [address] [place] [phone] Palma Palacio MD Mixed anxiety and depressive disorder from Last 3 Months Immunizations Immunization Administration [...] EST Inhaled Oxygen Concentration - - Weight 61.2 kg (135 lb) 08/01/2025 9:01 AM EDT Height 165.1 cm (5' 5 ) 08/01/2025 9:01 AM EDT Body Mass Index 22.47 08/01/2025 9:01 AM EDT Plan of Treatment Upcoming Encounters Date Type Department Care Team ([facility] st Contact Info) Description 10/29/2025 3:30 PM EST Office Visit [facility] [address] [place] [address] Luisana Dhillon, OD [address] [place] [address] 11/30/2025 1:30 PM EST Telemedicine [facility] [address] [place], [place] [phone] Arlet Quijano, RN Health Maintenance Due Date Last Done Comments CT Colonography 1958 FIT DNA/Cologuard 1958 FIT 1958 FOBT 1958 Sigmoidoscopy 1958 Alcohol/Substance Use Screening 1970 Depression Screening 10/24/2025 10/24/2024, 10/07/20 23 SDOH Screening 10/24/2025 10/24/2024 COVID-19 Vaccine ( season) 2025 06/28/2025, 07/10/2024, 07/23/2023, Additional history exists Tobacco Screening 10/03/2026 10/03/2025 Colonoscopy 02/29/2028 02/28/2025 Colorectal Cancer Screening 02/29/2028 Lipid Panel 10/07/2028 10/07/2023, 05/18, 11/14/2020, Additional history exists DTaP/Tdap/Td Vaccines (3 - Td or Tdap) 08/19/2033 08/19/2023, 01/27/2013, 10/14/2006 Hepatitis B Vaccines Completed 01/16/2014, 01/27/2013, 07/31/2010 Zoster Vaccines Completed 03/26/2021, 09/16/2020 Hepatitis C Screening Completed 10/07/2023 RSV Patients and Patients Aged 60 years or older Completed 10/13/2023 Pneumococcal Vaccine: 50+ Years Completed 07/10/2024, 10/14/2006 Influenza Vaccine Completed 06/28/2025, , 07/23/2023, Additional [...] Routine 10/03/2025 10:19 AM EST UTI symptoms POCT URINALYSIS DIPSTICK Routine 09/04/2025 9:18 AM EST Chronic UTI URINALYSIS, COMPLETE, WITH REFLEX TO CULTURE Routine 09/04/2025 12:00 AM EST Chronic UTI CULTURE, URINE, ROUTINE Routine 09/04/2025 12:00 AM EST POCT URINALYSIS DIPSTICK Routine 08/01/2025 9:53 AM EDT Dysuria CULTURE, URINE, ROUTINE Routine 08/01/2025 9:45 AM EDT Dysuria HM COLONOSCOPY Routine 02/28/2025 HEPATITIS PANEL, GENERAL Routine 10/07/2023 10:48 AM EST Encounter for preventive health examination Presence of intrathecal baclofen pump LIPID PANEL WITH REFLEX TO DIRECT LDL Routine 10/07/2023 10:48 AM EST Encounter for preventive health examination from Last 3 Months or Most Recently Relevant to Health Maintenance Results * (ABNORMAL) POCT Urinalysis (10/03/2025 10:19 AM EST) Only the most recent of3 resultswithin the time period is included. Color, [...] ENTER/EDIT OR DERABLES Final Result * (ABNORMAL) Urinalysis, Complete, with Reflex to Culture (09/04/2025 12:00 AM EST) Color Urine Yellow [facility] Appearance Urine Cloudy [facility] PH 6.0 5.0 - 9.0 [facility] Glucose Urine UA Negative Negative mg/dL [facility] Urine Blood Moderate (2+)(A) Negative [facility] Specific [place] - Urine 1.015 1.005 - 1.025 [facility] Urine Protein Trace Neg-Trace mg/dL [facility] Urine Ketones Negative Negative mg/dL [facility] Nitrite Urine Negative Negative [facility] Leukocyte Esterase Urine Moderate (2+)(A) Negative [facility] RBC Urine 3-5(A) 0 - 2 /HPF [facility] Urine WBC 21-50(A) 0 - 5 /HPF [facility] Urine Squamous Epithelial Cell 6-10 0 - 2 /HPF [facility] Urine Bacteria 4+ None Seen [facility] Hyaline Casts, Urine 0-2 0 - 2 /LPF [facility] Urine 09/04/2025 09/04/2025 Narrative [facility] - 09/04/2025 5:17 PM EST Urine, Clean Catch Kasey Tay MD LAB URINE ORDERABLES Final Result Performing Organization Address [facility] de Phone Number [facility] [address] [place] [phone] * Culture, Urine, Routine (09/04/2025 12:00 AM EST) Only the most recent of2 resultswithin the time period is included. Urine Urine specimen obtained by clean catch procedure / Unknown 09/04/2025 09/04/2025 Comment:[facility] - 09/06/2025 7:58 AM EST Klebsiella pneumoniae Quant > 100,000 cfu/mL Klebsiella pneumoniae: Ampicillin >=32(R) Klebsiella pneumoniae: Cefazolin 2(S) Klebsiella pneumoniae: Cefepime <=0.12(S) Klebsiella pneumoniae: Ceftriaxone <=0.25(S) Klebsiella pneumoniae: Ciprofloxacin <=0.06(S) Klebsiella pneumoniae: Gentamicin <=1(S) Klebsiella pneumoniae: Nitrofurantoin 64(I) Klebsiella pneumoniae: Trimethoprim/Sulfamethoxazole >=320(R) Specimen Source: Urine clean catch Kasey Tay MD LAB MICROBIOLOGY - GENERAL ORDERABLES Final Result Performing Organization Address [facility] de Phone Number [facility] [address] [place] [phone] * (ABNORMAL) Hm Colonoscopy (02/28/2025) Colonoscopy Abnormal( [...] to 5OO mg/dL Cholesterol 166 <200 mg/dL [facility] Comment:Desirable Cholestero l: less than 200 mg/dLBorderline High Cholesterol: 200-239 mg/dLHigh Cholesterol: greater than 239 mg/dL LDL Cholesterol Calculated 112(H) <100 mg/dL [facility] Comment:Desirable LDL: less than 100 mg/dLNear Optimal/Above Optimal LDL: 110- 129 mg/dLBorderline High LDL: 130-159 mg/dLHigh LDL: 160-189 mg/dLVery High LDL: greater than or equal to 190 mg/dL HDL Cholesterol 39(L) >40 mg/dL [facility] Comment:Desirable HDL: great er than 40 mg/dL Note: This HDL assay may give artificially low results in patients with liver disease. Blood 10/07/2023 10:4 8 AM EST 10/07/2023 11:22 AM EST us Kaylah Foley MD LAB BLOOD ORDERABLES Fin al Result [facility] [address] [place] [phone] * Hepatitis Panel, General (10/07/2023 10:48 AM EST) Hepatitis A IgM Nonreactive Nonreactive [facility] Comment:IgM antibodies to REED V not detected; does not exclude earlyacute or recovered HAV infection. ~Hepatitis B Surface Antibody REACTIVE Nonreactive [facility] Comment:REACTIVE: > 11.99 mI U/mL Hepatitis B Core Antibody Reactive Nonreactive [facility] Comment:Presumptive evidence of anti-HBc. Hepatitis C Antibody Nonreactive Nonreactive [facility] Comment:Antibodies to HCV no t detected; does not exclude early acuteHCV infection. Hepatitis B Surface Ag Negative Negative [facility] Blood 10/07/2023 10:4 8 AM EST 10/07/2023 11:22 AM EST us Kaylah Foley MD LAB BLOOD ORDERABLES Fin al Result [facility] [address] [place] [phone] from Last 3 Months or Most Recently Relevant to Health Maintenance Insurance [facility] [employer] OPT[employer] (O D-SNP) [place] RIOS [id number] Care Teams Warehouse Helper Relationship Specialty Start Date End Date Kaylah Foley MD [address] [place] [phone] PCP - General Family Medicine 06/02/17
--- OUTSIDE RECORDS SUMMARY | 2025-10-03 20:59 | XMS_ITS | Encounter Summary ---
Author Organization [employer] Address [address] [facility] 7t [place] [address] Care Team Providers Care Radio News Writer Name Role Phone Kaylah Foley MD Primary Care Provider + Reason for Visit * Reason Onset Date Comments Med Refill 09/27/2023 F/U on Percocet usage 09/27/2023 Encounter Details Date Type Department Care Team ([facility] st Contact Info) Description 09/27/2023 Refill [facility] [address] [place], [place] [phone] Kaylah Foley MD [address] [place], [place] [phone] Flaccid paraplegia (CMS/HCC) Social History Tobacco Use [...] request for Percocet refill today. TC via P/I#[id number], pt reports he's has about 27-28 pills [...] FYI PCP. * Telephone Encounter - Ken Payne - 09/27/2023 9:08 AM EST Tc from patient requesting a medication refill for oxyCODONE-acetaminophen (Percocet) 5-325 MG tablet documented in this encounter Plan of Treatment Upcoming Encounters Date Type Department Care Team (Late st Contact Info) Description 10/29/2025 3:30 PM EST Office Visit [facility] [address] [place] [address] TarkaLuisana, OD [address] [place] [address] 11/30/2025 1:30 PM EST Telemedicine [facility] [address] [place] [address] Arlet Quijano RN documented as of this encounter Visit Diagnoses Diagnosis Flaccid paraplegia (CMS/HCC) (HCC) Paraplegia documented in this encounter Additional Health Concerns Assessment Noted Time PHQ-9 Depression Total Score: 1 08/19/20 23 9:39 AM EDT documented as of this encounter Care Teams Radio News Writer Relationship Specialty Start Date End Date Kaylah Foley MD [address] [place] [address] PCP - General Family Medicine 06/02/17 documented as of this encounter
--- OUTSIDE RECORDS SUMMARY | 2025-10-03 20:59 | XMS_ITS | Encounter Summary ---
Author Organization [employer] Address [address] [facility] 7t [place] [address] Care Team Providers Care Swing Saw Operator Name Role Phone Kaylah Foley MD Primary Care Provider + Encounter Details Date Type Department Care Team (Latest Contact Info) Description 10/03/2025 Travel Social History Tobacco Use Types Packs/Day [...] Description 10/29/2025 3:30 PM EST Office Visit [facility] [address] [place], [place] [phone] Luisana Dhillon, OD [address] [place] [address] 11/30/2025 1:30 PM EST Telemedicine [facility] [address] [place] [address] Arlet Quijano, ROBERT documented as of this encounter Visit Diagnoses Not on filedocumented in this encounter Additional Health Concerns Assessment Noted Time PHQ-9 Depression Total Score: 3 10/07/20 23 9:51 AM EST documented as of this encounter Care Teams Swing Saw Operator Relationship Specialty Start Date End Date Kaylah Foley MD [address] [place] [address] PCP - General Family Medicine 06/02/17 documented as of this encounter
--- OUTSIDE RECORDS SUMMARY | 2025-10-03 20:59 | XMS_ITS | Encounter Summary ---
Author Organization [employer] Address [address] [facility] 7t [place] [address] Care Team Providers Care Hospitalist Physician Name Role Phone Kaylah Foley MD Primary Care Provider + Reason for Visit * Reason Comments Med Refill Encounter Details Date Type Department Care Team ([facility] st Contact Info) Description 10/03/2025 Refill [facility] [address] [place], [place] [phone] Kaylah Foley MD [address] [place], [place] [phone] Mixed anxiety and depressive disorder Social History [...] Description 10/29/2025 3:30 PM EST Office Visit [facility] [address] [place] [address] Luisana Dhillon, OD [address] [place] [address] 11/30/2025 1:30 PM EST Telemedicine [facility] [address] [place] [address] Arlet Quijano RN documented as of this encounter Visit Diagnoses Diagnosis Mixed anxiety and depressive disorder Dysthymic disorder documented in this encounter Additional Health Concerns Assessment Noted Time PHQ-9 Depression Total Score: 3 10/07/20 23 9:51 AM EST documented as of this encounter Care Teams Hospitalist Physician Relationship Specialty Start Date End Date Kaylah Foley MD [address] [place] [address] PCP - General Family Medicine 06/02/17 documented as of this encounter
--- OUTSIDE RECORDS SUMMARY | 2025-10-03 20:59 | XMS_ITS | Encounter Summary ---
Author Organization [employer] Address [address] [facility] 7t [place] [address] Care Team Providers Care Clinical Law Professor Name Role Phone Kaylah Foley MD Primary Care Provider + Reason for Visit * Reason Onset Date Comments Med Refill 03/12/2023 Encounter Details Date Type Department Care Team ([facility] st Contact Info) Description 03/12/2023 Telephone [facility] [address] [place], [place] [phone] Kaylah Foley MD [address] [place], [place] [phone] Med Refill Social History Tobacco Use Types [...] on 03/16/23. * Telephone Encounter - Pepeadri Ceja Brigida - 03/12/2023 9:09 AM EDT Tc from pt requesting med refill on oxyCODONE-acetaminophen (Percocet) 5-325 MG tablet Please sent to [facility] - [place], [place] - [address] [place] [address] documented in this encounter Plan of Treatment Upcoming Encounters Date Type Department Care Team (Late st Contact Info) Description 10/29/2025 3:30 PM EST Office Visit [facility] [address] [place], [place] [phone] Luisana Dhillon, YESSI [address] [place] [address] 11/30/2025 1:30 PM EST Telemedicine [facility] [address] [place] [address] Arlet Quijano, ROBERT documented as of this encounter Visit Diagnoses Not on filedocumented in this encounter Care Teams Clinical Law Professor Relationship Specialty Start Date End Date Kaylah Foley MD [address] [place] [address] PCP - General Family Medicine 06/02/17 documented as of this encounter
--- OUTSIDE RECORDS SUMMARY | 2025-10-03 20:59 | XMS_ITS | Encounter Summary ---
Author Organization [employer] Address [address] [facility] 7t [place] [address] Care Team Providers Care General Labor Forklift Operator Name Role Phone Kaylah Foley MD Primary Care Provider + Reason for Visit * Reason Onset Date Comments Results 09/06/2025 Encounter Details Date Type Department Care Team ([facility] st Contact Info) Description 09/06/2025 Results Follow-Up [facility] [address] [place], [place] [phone] Kasey Tay MD [address] [place], [place] [phone] Culture, Urine, Routine Social History Tobacco Use Types Packs/Day Years [...] encounter Miscellaneous Notes * Telephone Encounter - Babita Welch RN - 09/06/2025 10:05 AM EST Telephone call to pt via [id number] [phone]. Informed pt that urine testing came back positive for differentbacteria for which another antibiotic is better suited. Pt requests medication to be sent to [facility]. Educated him to return to [facility] if sxs persist after finishing full course of antibiotics. Pt verbalized understanding, no further questions. * Telephone Encounter - Babita Welch RN - 09/06/2025 9:59 AM EST ----- Message from Kasey Tay MD sent at 09/06/2025 9:19 AM EST ----- Please let pt know that urine came back positive for a different bacteria and there is a better antibiotic. I will send this to his pharmacy. Thank you. ----- Message ----- From: Interface, Lab Results In Sent: 09/05/2025 2:13 PM EST To: Kasey Tay MD documented in this encounter Plan of Treatment Upcoming Encounters Date Type Department Care Team (Late st Contact Info) Description 10/29/2025 3:30 PM EST Office Visit [facility] [address] [place], [place] [phone] Avilajosé miguelLuisana, OD [address] [place] [address] 11/30/2025 1:30 PM EST Telemedicine [facility] [address] [place] [address] Arlet Quijano, ROBERT documented as of this encounter Visit Diagnoses Not on filedocumented in this encounter Additional Health Concerns Assessment Noted Time PHQ-9 Depression Total Score: 3 10/07/20 23 9:51 AM EST documented as of this encounter Care Teams General Labor Forklift Operator Relationship Specialty Start Date End Date Kaylah Foley MD [address] [place] [address] PCP - General Family Medicine 06/02/17 documented as of this encounter
--- OUTSIDE RECORDS SUMMARY | 2025-10-03 20:59 | XMS_ITS | Encounter Summary ---
Author Organization [employer] Address [address] [facility] 7t [place] [address] Care Team Providers Care Electrical Research Engineer Name Role Phone Kaylah Foley MD Primary Care Provider + Reason for Visit * Reason Comments Med Refill Encounter Details Date Type Department Care Team ([facility] st Contact Info) Description 05/16/2024 Refill [facility] MEDICINE [address] [place], [place] [phone] Erum Scott MD 230 [place], [place] [phone] Flaccid paraplegia (CMS/HCC) Social History Tobacco Use [...] Description 10/29/2025 3:30 PM EST Office Visit [facility] OPTOMETRY [address] [place], [place] [phone] Luisana Dhillon, OD [address] [place] [address] 11/30/2025 1:30 PM EST Telemedicine [facility] MEDICINE [address] [place], [place] [phone] Arlet Quijano RN documented as of this encounter Visit Diagnoses Diagnosis Flaccid paraplegia (CMS/HCC) (HCC) Paraplegia documented in this encounter Additional Health Concerns Assessment Noted Time PHQ-9 Depression Total Score: 3 10/07/20 23 9:51 AM EST documented as of this encounter Care Teams Electrical Research Engineer Relationship Specialty Start Date End Date Kaylah Foley MD [address] [place] [address] PCP - General Family Medicine 06/02/17 documented as of this encounter
--- OUTSIDE RECORDS SUMMARY | 2025-10-03 20:59 | XMS_ITS | Encounter Summary ---
Author Organization [employer] Address 75 [facility] 7t [place] [address] Care Team Providers Care Professor Of Anthropology Name Role Phone Kaylah Foley MD Primary Care Provider + Encounter Details Date Type Department Care Team (Late st Contact Info) Description 09/13/[address] [facility] MEDICINE [address] [place], [place] [phone] Brenda Thompson Social History Tobacco Use Types [...] Description 10/29/2025 3:30 PM EST Office Visit [facility] OPTOMETRY [address] [place] [address] Luisana Dhillon, OD [address] [place] [address] 11/30/2025 1:[address] [facility] MEDICINE [address] [place] [address] Arlet Quijano RN documented as of this encounter Visit Diagnoses Not on filedocumented in this encounter Additional Health Concerns Assessment Noted Time PHQ-9 Depression Total Score: 1 08/19/20 23 9:39 AM EDT documented as of this encounter Care Teams Professor Of Anthropology Relationship Specialty Start Date End Date Kaylah Foley MD 230 [place] [address] PCP - General Family Medicine 06/02/17 documented as of this encounter
--- OUTSIDE RECORDS SUMMARY | 2025-10-03 20:59 | XMS_ITS | Encounter Summary ---
Author Organization [employer] Address 75 [facility] 7t [place] [address] Care Team Providers Care Copy Chief Name Role Phone Kaylah Foley MD Primary Care Provider + Encounter Details Date Type Department Care Team ([facility] st Contact Info) Description 08/18/2024 Orders Only [facility] MEDICINE [address] [place], [place] [phone] Kaylah Foley MD [address] [place], [place] [phone] Mixed anxiety and depressive disorder (Primary Dx) [...] Description 10/29/2025 3:30 PM EST Office Visit [facility] OPTOMETRY [address] [place] [address] Luisana Dhillon, OD [address] [place] [address] 11/30/2025 1:30 PM EST Telemedicine [facility] MEDICINE [address] [place] [address] Arlet Quijano RN documented as of this encounter Visit Diagnoses Diagnosis Mixed anxiety and depressive disorder- Primary Dysthymic disorder documented in this encounter Additional Health Concerns Assessment Noted Time PHQ-9 Depression Total Score: 3 10/07/20 23 9:51 AM EST documented as of this encounter Care Teams Copy Chief Relationship Specialty Start Date End Date Kaylah Foley MD 230 [place] [address] PCP - General Family Medicine 06/02/17 documented as of this encounter
--- OUTSIDE RECORDS SUMMARY | 2025-10-03 20:59 | XMS_ITS | Encounter Summary ---
Author Organization [employer] Address 75 [facility] 7t [place] [address] Care Team Providers Care Toll Service Observer Name Role Phone Kaylah Foley MD Primary Care Provider + Reason for Visit * Reason Onset Date Comments Medication Question 07/05/2024 Encounter Details Date Type Department Care Team ([facility] st Contact Info) Description 07/05/2024 Telephone [facility] MEDICINE [address] [place], [place] [phone] Kaylah Foley MD 230 [place], [place] [phone] Medication Question Social History Tobacco Use Types [...] Description 10/29/2025 3:30 PM EST Office Visit [facility] OPTOMETRY [address] [place] [address] Luisana Dhillon, YESSI [address] [place] [address] 11/30/2025 1:30 PM EST Telemedicine [facility] MEDICINE 230 [place] [address] Arlet Quijano RN documented as of this encounter Visit Diagnoses Not on filedocumented in this encounter Additional Health Concerns Assessment Noted Time PHQ-9 Depression Total Score: 3 10/07/20 23 9:51 AM EST documented as of this encounter Care Teams Toll Service Observer Relationship Specialty Start Date End Date Kaylah Foley MD 230 [place] [address] PCP - General Family Medicine 06/02/17 documented as of this encounter
--- OUTSIDE RECORDS SUMMARY | 2025-10-03 20:59 | XMS_ITS | Encounter Summary ---
Author Organization [employer] Address 75 [facility] 7t [place] [address] Care Team Providers Care Bindery Worker Name Role Phone Kaylah Foley MD Primary Care Provider + Reason for Visit * Reason Comments Med Refill Encounter Details Date Type Department Care Team ([facility] st Contact Info) Description 09/25/2025 Refill [facility] MEDICINE 230 [place], [place] [phone] Kaylah Foley MD 230 [place], [place] [phone] Social History Tobacco Use Types Packs/Day Years [...] Description 10/29/2025 3:30 PM EST Office Visit [facility] OPTOMETRY [address] [place] [address] Luisana Dhillon, OD 267 [place] [address] 11/30/2025 1:30 PM EST Telemedicine [facility] MEDICINE [address] [place] [address] Arlet Quijano, ROBERT documented as of this encounter Visit Diagnoses Not on filedocumented in this encounter Additional Health Concerns Assessment Noted Time PHQ-9 Depression Total Score: 3 10/07/20 23 9:51 AM EST documented as of this encounter Care Teams Bindery Worker Relationship Specialty Start Date End Date Kaylah Foley MD [address] [place] [address] PCP - General Family Medicine 06/02/17 documented as of this encounter
--- OUTSIDE RECORDS SUMMARY | 2025-10-03 21:00 | XMS_ITS | Encounter Summary ---
Author Organization [employer] Address 75 [facility] 7t [place] [address] Care Team Providers Care Manager Engine Name Role Phone Kaylah Foley MD Primary Care Provider + Reason for Visit * Reason Comments Med Refill Encounter Details Date Type Department Care Team ([facility] st Contact Info) Description 09/28/2023 Refill [facility] MEDICINE 230 [place], [place] [phone] Kaylah Foley MD [address] [place], [place] [phone] Flaccid paraplegia (CMS/HCC) Social History Tobacco Use [...] Description 10/29/2025 3:30 PM EST Office Visit [facility] OPTOMETRY [address] [place], [place] [phone] Luisana Dhillon, OD 267 [place] [address] 11/30/2025 1:30 PM EST Telemedicine [facility] MEDICINE 230 [place] [address] Arlet Quijano RN documented as of this encounter Visit Diagnoses Diagnosis Flaccid paraplegia (CMS/HCC) (HCC) Paraplegia documented in this encounter Additional Health Concerns Assessment Noted Time PHQ-9 Depression Total Score: 1 08/19/20 23 9:39 AM EDT documented as of this encounter Care Teams Manager Engine Relationship Specialty Start Date End Date Kaylah Foley MD [address] [place] [address] PCP - General Family Medicine 06/02/17 documented as of this encounter
--- OUTSIDE RECORDS SUMMARY | 2025-10-03 21:00 | XMS_ITS | Encounter Summary ---
Author Organization [employer] Address [address] [facility] 7t [place] [address] Care Team Providers Care Front Office Manager Name Role Phone Kaylah Foley MD Primary Care Provider + Reason for Visit * Reason Comments Med Refill Encounter Details Date Type Department Care Team ([facility] st Contact Info) Description 09/29/2023 Refill [facility] MEDICINE [address] [place], [place] [phone] Kaylah Foley MD 230 [place], [place] [phone] Flaccid paraplegia (CMS/HCC) Social History Tobacco Use [...] your housing situation today? I have [employer] 08/19/[address] you li [...] Description 10/29/2025 3:30 PM EST Office Visit [facility] OPTOMETRY [address] [place], [place] [phone] Luisana Dhillon, OD [address] [place] [address] 11/30/2025 1:30 PM EST Telemedicine [facility] MEDICINE [address] [place] [address] Arlet Quijano RN documented as of this encounter Visit Diagnoses Diagnosis Flaccid paraplegia (CMS/HCC) (HCC) Paraplegia documented in this encounter Additional Health Concerns Assessment Noted Time PHQ-9 Depression Total Score: 1 08/19/20 23 9:39 AM EDT documented as of this encounter Care Teams Front Office Manager Relationship Specialty Start Date End Date Kaylah Foley MD 230 [place] [address] PCP - General Family Medicine 06/02/17 documented as of this encounter
--- OUTSIDE RECORDS SUMMARY | 2025-10-03 21:00 | XMS_ITS | Encounter Summary ---
Author Organization [employer] Address 75 [facility] 7t [place] [address] Care Team Providers Care Auto Radiator Specialist Name Role Phone Kaylah Foley MD Primary Care Provider + Reason for Visit * Reason Comments Med Refill Encounter Details Date Type Department Care Team ([facility] st Contact Info) Description 05/08/2024 Refill [facility] CHC MED & PEDS [address] [place], [place] [phone] Kaylah Foley MD 230 [place], [place] [phone] Anxiety Social History Tobacco Use Types Packs/Day [...] Description 10/29/2025 3:30 PM EST Office Visit [facility] OPTOMETRY [address] [place] [address] Luisana Dhillon, OD [address] [place] [address] 11/30/2025 1:30 PM EST Telemedicine [facility] MEDICINE [address] [place], [place] [phone] Arlet Quijano RN documented as of this encounter Visit Diagnoses Diagnosis Anxiety Anxiety state, unspecified documented in this encounter Additional Health Concerns Assessment Noted Time PHQ-9 Depression Total Score: 3 10/07/20 23 9:51 AM EST documented as of this encounter Care Teams Auto Radiator Specialist Relationship Specialty Start Date End Date Kaylah Foley MD 230 [place] [address] PCP - General Family Medicine 06/02/17 documented as of this encounter
--- OUTSIDE RECORDS SUMMARY | 2025-10-03 21:00 | XMS_ITS | Encounter Summary ---
Author Organization [employer] Address 75 [facility] 7t [place] [address] Care Team Providers Care Merchandise Clerk Name Role Phone Kaylah Foley MD Primary Care Provider + Reason for Visit * Reason Comments Med Refill Encounter Details Date Type Department Care Team ([facility] st Contact Info) Description 04/17/2025 Refill [facility] CHC MED & PEDS [address] [place], [place] [phone] Kaylah Foley MD 230 [place], [place] [phone] Mixed anxiety and depressive disorder Social History [...] Description 10/29/2025 3:30 PM EST Office Visit [facility] OPTOMETRY [address] [place] [address] Luisana Dhillon, OD [address] [place] [address] 11/30/2025 1:30 PM EST Telemedicine [facility] MEDICINE 230 [place] [address] Arlet Quijano RN documented as of this encounter Visit Diagnoses Diagnosis Mixed anxiety and depressive disorder Dysthymic disorder documented in this encounter Additional Health Concerns Assessment Noted Time PHQ-9 Depression Total Score: 3 10/07/20 23 9:51 AM EST documented as of this encounter Care Teams Merchandise Clerk Relationship Specialty Start Date End Date Kaylah Foley MD 230 [place] [address] PCP - General Family Medicine 06/02/17 documented as of this encounter
--- OUTSIDE RECORDS SUMMARY | 2025-10-03 21:00 | XMS_ITS | Encounter Summary ---
Author Organization [employer] Address 75 [facility] 7t [place] [address] Care Team Providers Care Vp Clinical Name Role Phone Kaylah Foley MD Primary Care Provider + Reason for Visit * Reason Comments Med Refill Encounter Details Date Type Department Care Team ([facility] st Contact Info) Description 12/02/2023 Refill [facility] DIABETES/NUTRITION [address] [place], [place] [phone] Kaylah Foley MD 230 [place], [place] [phone] Anxiety Social History Tobacco Use Types Packs/Day [...] Description 10/29/2025 3:30 PM EST Office Visit [facility] OPTOMETRY [address] [place] [address] Luisana Dhillon, OD 267 [place] [address] 11/30/2025 1:30 PM EST Telemedicine [facility] MEDICINE 230 [place], [place] [phone] Arlet Quijano RN documented as of this encounter Visit Diagnoses Diagnosis Anxiety Anxiety state, unspecified documented in this encounter Additional Health Concerns Assessment Noted Time PHQ-9 Depression Total Score: 3 10/07/20 23 9:51 AM EST documented as of this encounter Care Teams Vp Clinical Relationship Specialty Start Date End Date Kaylah Foley MD [address] [place] [address] PCP - General Family Medicine 06/02/17 documented as of this encounter
--- OUTSIDE RECORDS SUMMARY | 2025-10-03 21:00 | XMS_ITS | Encounter Summary ---
Author Organization [employer] Address 75 [facility] 7t [place] [address] Care Team Providers Care Pipe Bowls Paint Trimmer Name Role Phone Kaylah Foley MD Primary Care Provider + Reason for Visit * Reason Comments Med Refill Encounter Details Date Type Department Care Team ([facility] st Contact Info) Description 04/17/2025 Refill [facility] CHC MED & PEDS [address] [place], [place] [phone] Kaylah Foley MD 230 [place], [place] [phone] Mixed anxiety and depressive disorder Social History [...] Description 10/29/2025 3:30 PM EST Office Visit [facility] OPTOMETRY 267 [place] [address] Luisana Dhillon, OD 267 [place] [address] 11/30/2025 1:30 PM EST Telemedicine [facility] MEDICINE 230 [place] [address] Arlet Quijano RN documented as of this encounter Visit Diagnoses Diagnosis Mixed anxiety and depressive disorder Dysthymic disorder documented in this encounter Additional Health Concerns Assessment Noted Time PHQ-9 Depression Total Score: 3 10/07/20 23 9:51 AM EST documented as of this encounter Care Teams Pipe Bowls Paint Trimmer Relationship Specialty Start Date End Date Kaylah Foley MD 230 [place] [address] PCP - General Family Medicine 06/02/17 documented as of this encounter
--- OUTSIDE RECORDS SUMMARY | 2025-10-03 21:00 | XMS_ITS | Encounter Summary ---
Author Organization [employer] Address [address] [place] [address] 7t [place] [address] Care Team Providers Care Fertilizer Supervisor Name Role Phone Kaylah Foley MD Primary Care Provider + Reason for Visit * Reason Comments Med Refill Encounter Details Date Type Department Care Team (Late st Contact Info) Description 02/04/2023 Refill [facility] [address] [place] [address] Kaylah Foley MD 230 [place] [address] Anxiety Social History Tobacco Use Types Packs/Day [...] Description 10/29/2025 3:30 PM EST Office Visit [facility] OPTOMETRY 267 [place], [place] [phone] Luisana Dhillon, YESSI 267 [place] [address] 11/30/2025 1:30 PM EST Telemedicine [facility] MEDICINE [address] [place] [address] Arlet Quijano RN documented as of this encounter Visit Diagnoses Diagnosis Anxiety Anxiety state, unspecified documented in this encounter Care Teams Fertilizer Supervisor Relationship Specialty Start Date End Date Kaylah Foley MD [address] [place] [address] PCP - General Family Medicine 06/02/17 documented as of this encounter
--- OUTSIDE RECORDS SUMMARY | 2025-10-03 21:00 | XMS_ITS | Encounter Summary ---
Author Organization [employer] Address [address] [place] [address] 7t [place] [address] Care Team Providers Care Commercial Project Manager Name Role Phone Kaylah Foley MD Primary Care Provider + Reason for Visit * Reason Comments Med Refill Encounter Details Date Type Department Care Team (Late st Contact Info) Description 10/09/2022 Refill [facility] MEDICINE [address] [place] [address] Palma Palacio MD [address] [place] [address] Other specified anxiety disorders Social History Tobacco [...] Description 10/29/2025 3:30 PM EST Office Visit [facility] OPTOMETRY 267 [place], [place] [phone] Luisana Dhillon, OD 267 [place], [place] [phone] 11/30/2025 1:30 PM EST Telemedicine [facility] MEDICINE 230 [place] [address] Arlet Quijano RN documented as of this encounter Visit Diagnoses Diagnosis Other specified anxiety disorders documented in this encounter Care Teams Commercial Project Manager Relationship Specialty Start Date End Date Kaylah Foley MD 230 [place] [address] PCP - General Family Medicine 06/02/17 documented as of this encounter
--- OUTSIDE RECORDS SUMMARY | 2025-10-03 21:00 | XMS_ITS | Encounter Summary ---
Author Organization [employer] Address 75 [facility] 7t [place] [address] Care Team Providers Care Mill Work Name Role Phone Kaylah Foley MD Primary Care Provider + Reason for Visit * Reason Comments Med Refill Encounter Details Date Type Department Care Team ([facility] st Contact Info) Description 08/08/2025 Refill [facility] MEDICINE [address] [place], [place] [phone] Kaylah Foley MD 230 [place], [place] [phone] Mixed anxiety and depressive disorder Social History [...] Description 10/29/2025 3:30 PM EST Office Visit [facility] OPTOMETRY [address] [place] [address] Luisana Dhillon, OD [address] [place] [address] 11/30/2025 1:30 PM EST Telemedicine [facility] MEDICINE [address] [place] [address] Arlet Quijano RN documented as of this encounter Visit Diagnoses Diagnosis Mixed anxiety and depressive disorder Dysthymic disorder documented in this encounter Additional Health Concerns Assessment Noted Time PHQ-9 Depression Total Score: 3 10/07/20 23 9:51 AM EST documented as of this encounter Care Teams Mill Work Relationship Specialty Start Date End Date Kaylah Foley MD 230 [place] [address] PCP - General Family Medicine 06/02/17 documented as of this encounter
--- OUTSIDE RECORDS SUMMARY | 2025-10-03 21:00 | XMS_ITS | Data Portability ---
Author Organization [employer], [facility] Address [address] [place] [address] Care Team Providers Care Solid Surface Fabricator Name Role Phone HIM YOEL OTHER Assessment Encounter Date Assessment Date Assessment LastModified by Organization Details LastModified Time 07/03/2024 07/03/2024 As noted, we were called to see this patient regarding concerns of penile pain. Evaluation in the field was performed by my plastic surgery specialist colleague, as noted above, I provided real-time direction and supervision for this visit. The evaluation revealed same. Impression: Complex 63yo/m with hx of paraplegia and neurogenic bladder who self catheterizes who called for evaluation for continued penile pain. Patient is 63 and interviewed with parts lister, and medic in home reports patient was [...] symptoms, particularly worsening or change in symptoms. [email or web address] Not available 07/03/2024 18:36:24 Plan of Treatment Reminders Order Date Submit Date Provider Last Modified By Organization Details Last Modified Time Details Appointments None recorde d. Lab culture , urine 024 07/03/20 24 [place] [facility] (Centralized Electronic Ordering - All Locations), Patient Can Go To The Location Of Their Choice, [address] 10:06:52 Referral None recorde d. Procedures None [...] culture,comp rehensive Final report Not Available [facility] ([facility]) [address] [facility], [place], [address], 07/06/2024 12:06:12 07/03/20 24 07/06/2024 URINE CULTU RE,CO MPREH ENSIV E result 1 COMMEN T No growt h in 36 - 48 hours . Not Available [facility] ([facility]) [address], [place], [address], 07/06/2024 12:06:12 Result Notes None recorded. Medical [...] Not Available No t Available Artificial Tears (io200-jlqiibc ll-glycerin) 1 %-0.2 %-0.2 % eye drops INSTILL 1 DROP INTO THE AFFECTED EYE(S) FOUR TIMES DAILY active Not Available Not Available No t Available Vitals Date Recorded Heart rate Body weight Oxygen saturation Body temperature Respiratory rate Systolic And Diastolic Provider Name and Address Organization Details Last Updated DateTime 4 76 /min 72060.9 6 g 95 % 97.6 [degF] 18 /min 76/48 mm[Hg] Not Available [employer] - production 4 16:34:42 Date Recorded Body temperature Respiratory rate Heart rate Oxygen saturation Systolic And Diastolic Provider Name and Address Organization Details Last Updated DateTime 4 98.9 [degF] 18 /min 70 /min 97 % 148/84 mm[Hg] Not Available Scheduling [employer] - production 4 19:32:45 Date Recorded Heart rate Body temperature Oxygen saturation Respiratory rate Systolic And Diastolic Provider Name and Address Organization Details Last Updated DateTime 4 70 /min 97.5 [degF] 96 % 16 /min 119/72 mm[Hg] Not Available [employer] - [employer]...Exactly 4 18:17:22 Social History None recorded. Functional Status None recorded. Mental Status None recorded. Family History Nothing Reported. Medical History No medical history recorded. Past Encounters Encounter ID Performer Location Encounter Start Date Encounter Closed Date Diagnosis/Indication Diagnosis SNOMED-CT Code Diagnosis ICD10 Code Diagnosis IMO Codes Diagnosis Note [id number] YAMINI LEMUS MD Main - [facility] [address] [place] [address] 12/17/2023 16:34:41 12/17/2023 19:30:05 Low blood pressure 68443488 I95.9 Evaluation in the field was performed by my plastic surgery specialist colleague, as noted above, I provided real-time [...] BP was checked 3 times by the plastic surgery specialist and the highest value of BP 76/48. Pt afebrile but with diffuse abdominal pain, guarding.G vasu duranio n, severe abdominal pain and the fact that pt lives by himself, he is a high risk of developing sepsis. Impression :Hypotensi on/ abdominal pain/ possible UTI Plan:Pt to be transporte d to [facility]. Expect called. Primary care, consider__ _ Dispositio n: [facility] [place] [id number] Jovan Hawk MD Main - [facility] [address] [place] [phone] 01/07/2024 19:32:43 01/08/2024 00:36:17 Chronic abdominal pain 025602768 R10.9 This 63-year-ol d male has had intermitte nt abdominal pain for over three weeks. He was recently evaluated in the ER with a negative workup. He continues to have pain not responding to Tylenol. I ordered Toradol 15 mg IM and suggested he alternate ibuprofen and Tylenol. He will follow-up with his PCP. The patient agreed with this plan. [id number] Mathew Nguyen MD Main - [facility] [address] [place] [phone] 07/03/2024 18:17:19 07/03/2024 20:33:59 Pain in penis 443537654 N48.89 Health Concerns Section Related Observation LastModified by Organization Detai ls LastModified Time None Recorded Concern Status LastModified by Organization Details LastModified Time None Recorded Advance Directives Directive None Recorded Payers Insurance Date Sequence Insurance Name Policy Number Policy Joseph Covered Member ID Joseph Member ID Guarantor Name 07/03/2024 1 [facility] - DOS ON OR AFTER 2023 - DUAL ELIGIBLE - LONGTERM OPTIONS AND ONE CARE (MEDICARE REPLACEMENT/ADV ANTAGE - HMO) Erasmo Charles [id number] Erasmo Charles Notes Date Note Type Note Provider Name and Address Organization Details Recorded Time 12/17/2023 text/html [facility] Nurse Triage Notes (Freddy Trejo): Reason For Request: Pt reporting 7 out of 8 centralized abdominal pain 11/14/23 mbr went to ED for similar pain (not as strong pain as being reported today)>was given antibiotic which did not help as much. 12/14/23 mbr presented to [facility] for similar pain and received antibiotic shot and was sent home with a medication that was 3x a day for pain and made him urinate redish color. 12/15/23 mbr worsened and went to ED> Chief Complaints: Pain Allergies: No Known Comments: Cocoa Roaster verified the member's name//address and phone number. [...] .................. .................. .................. .................. .................. .................. ............... Design Engineering Technician Note From Daniel Herrera: Pt co lower clenching tingling abdominal pain , painful upon palpation, denies urinary pain fever sob confusion cp. baseline vitals assessed. Very hypotensive. Abdomen had pain upon palpitation. Pt wincing in pain. [facility] contacted and advised ER. Pt agreed. 911 called pt transported to [facility]. .................. .................. .................. .................. .................. .................. .................. ............... Disposition: Ravi LEMUS MD [address] [facility], [place], [phone], [employer] 12/17/2023 18:30:41 01/07/2024 text/html ROS as noted in the HPI HPI: HX: Paraplegia following meningitis. Recurrent UTI with urinary retention. Anticoag on coumadin. Seen at [facility] ED 01/06/24 with negative work up for pain in lower abdomen. Patient reorts nausea and pain worse after eating currently 02/24. No vomiting and BM today. Team appt scheduled for Wednesday. .................. .................. .................. .................. .................. .................. .................. ............... [facility] Nurse Triage Notes (Freddy Trejo): Comments: Reviewed HPI Jovan Hawk MD [address], [place], [address], [employer] 01/07/2024 19:38:39 07/03/2024 text/html ROS as noted in the HPI HPI: MS called and member not on the line, she states member was in ER, he is home and can't sleep and has pain and wants someone to come see him. Cocoa Roaster obtained special skills officer ID# [id number]. Erasmo states he went to ER because [...] his urine does not look right, like antwonvivek-lilia. He states he would like someone to come see him and he can provide a urine sample. .................. .................. .................. .................. .................. .................. .................. ............... [facility] Nurse Triage Notes (Sofiya Mcmillan): Chief Complaints: UTI/Pyelonephritis , Pain Comments: CRC RN did not require any additional information to process this visit. .................. .................. .................. .................. .................. .................. .................. ............... Design Engineering Technician Note From Manish Thomas: Pt reports one [...] an in person eval. Red flags reviewed. [facility] Lab Orders: culture, urine: Performed .................. .................. .................. .................. .................. .................. .................. ............... Disposition: Fulfilled Mathew Nguyen MD [address] [facility], [place], [address], [employer] 07/03/2024 18:45:33
--- OUTSIDE RECORDS SUMMARY | 2025-10-03 21:00 | XMS_ITS | Encounter Summary ---
Author Organization [employer] Address [address] [facility] [address] [place] [address] Care Team Providers Care Float Tender Name Role Phone Kaylah Foley MD Primary Care Provider + Encounter Details Date Type Department Care Team ([facility] st Contact Info) Description 08/03/2025 Results Follow-Up [facility] MEDICINE [address] [place], [place] [phone] Pearl Dimas, LEONELA [address] [place], [place] [phone] POCT Urinalysis, Culture, Urine, Routine Social History Tobacco Use [...] AM EDT documented as of this encounter Functional Status * Over the last 2 weeks, how often have you been bothered by any of the following problems? Question Answer Date of Assessment Author Feeling nervous, anxious, or on edge 0 04/2025 1:49 PM Arlet Galvan RN Not being able to stop or co ntrol worrying 0 08/24/2025 1:49 PM Arlet Galvan RN Worrying too much about diff erent things 0 08/24/2025 1:49 PM Arlet Galvan RN Trouble relaxing 0 08/24/2025 1:49 PM Arlet BUTLER ae, RN Being so restless that it is hard to sit still 0 08/24/2025 1:49 PM Arlet Galvan RN Becoming easily annoyed or irritable 0 04/2025 1:49 PM Arlet Galvan RN Feeling afraid as if somethi ng awful might happen 0 08/24/2025 1:49 PM Arlet Galvan RN LOIDA-7 Total Score 0 08/24/2025 1:49 PM Arlet Galvan RN documented as of this encounter Miscellaneous Notes * Result Encounter Note - Pearl Dimas NP - 08/03/2025 10:20 AM EDT Fyi, preliminary culture has gram neg rods, waiting strain and sensitivity documented in this encounter Plan of Treatment Upcoming Encounters Date Type Department Care Team (Late st Contact Info) Description 10/29/2025 3:30 PM EST Office Visit [facility] OPTOMETRY [address] [place] [address] Jacquie Luisana, OD [address] [place] [address] 11/30/2025 1:30 PM EST Telemedicine [facility] MEDICINE [address] [place], [place] [phone] Arlet Quijano RN documented as of this encounter Visit Diagnoses Not on filedocumented in this encounter Additional Health Concerns Assessment Noted Time PHQ-9 Depression Total Score: 3 10/07/20 23 9:51 AM EST documented as of this encounter Care Teams Float Tender Relationship Specialty Start Date End Date Kaylah Foley MD [address] [place] [address] PCP - General Family Medicine 06/02/17 documented as of this encounter
== END 2025-10-03 16:31 | disposition home or self-care (01) ==
LOC: HO.HHCLNP 16:30
PROVIDERS: Visit Provider Emergency Medicine
DX: R39.9 Unspecified symptoms and signs involving the genitourinary system (principal)
CPT/HCPCS: 87086

== ENCOUNTER 2025-10-08 13:24 | Outpatient (REF) | payer OTHER, SELFPAY ==
--- OUTSIDE RECORDS SUMMARY | 2025-10-03 10:00 | XMS_ITS | Encounter Summary ---
Author Organization [employer] Address [address] [place] [address] Care Team Providers Care Hair Boiler Name Role Phone Kaylah Foley MD Primary Care Provider + Reason for Visit * Reason Comments UTI Encounter Details Date Type Department Care Team ([facility] st Contact Info) Description 10/03/2025 10:00 AM EST Office Visit [facility] [address], [place] [phone] Manish Argueta MD [address] [place], [place] [phone] UTI symptoms Social History Tobacco Use Types [...] Sign Reading Time Taken Comments Blood Pressure 94/56 10/03/2025 9:59 AM EST Pulse 59 10/03/2025 9:59 AM EST Temperature 36.6 C (97.9 F) 10/03/2025 9:59 AM EST Respiratory Rate 16 10/03/2025 9:59 AM EST Oxygen Saturation 98% 10/03/2025 9:59 AM EST Inhaled Oxygen Concentration - - Weight - - Height - - Body Mass Index - - documented in this encounter Progress Notes * Manish Argueta MD - 10/03/2025 10:00 AM EST Subjective Patient ID: Erasmo Moscoso is a 64 y.o. male. Senior Lead Developer: Yanira Zimmerman was seen Symptoms recurred 5 days after finishing Cipro for UTI (finished Cipro 3 weeks ago). He is experiencing urine odor, sphincter pain , cloudy urine, occasional chills. Self catheterizes 5-6x/day to urinate. Denies n/v, abdominal or flank pain (states limited sensation of abdomen and back due to paraplegia). Last Tylenol dose was 5 hours ago. H/o recurrent UTIs, last urine culture done September 04 grew Klebsiella pneumonia, intermediate to nitrofurantoin, resistant to Bactrim. Was sensitive to fluoroquinolones and cephalosporins. Was initially prescribed nitrofurantoin that was switched to Cipro when the urine culture and sensitivity results were available. Followed by [facility]. Lives alone. Not employed. Former smoker. Patient Active Problem List Diagnosis Date Noted Tubular adenoma of colon 06/21/2025 Long-term current use of benzodiazepine 04/09/2025 On continuous oral anticoagulation 10/24/2024 Slow transit constipation 08/09/2024 Generalized abdominal pain 07/19/2024 Lower abdominal pain 01/10/2024 Encounter for preventive health examination 10/07/2023 Encounter for screening colonoscopy 10/07/2023 Presence of intrathecal baclofen pump 08/24/2023 Chronic bilateral low back pain without sciatica 08/19/2023 Mixed anxiety and depressive disorder 03/01/2023 Postprocedural male urethral stricture 03/01/2023 Recurrent major depression in partial remission (CMS/HCC) 03/01/2023 Retention of urine 06/15/2018 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 Respiratory: Negative for shortness of breath. Cardiovascular: Negative for chest pain. Gastrointestinal: Negative for abdominal pain. Genitourinary: Positive for dysuria and penile pain. Negative for flank pain. Skin: Negative for rash. Neurological: Negative for headaches. Objective Physical Exam Constitutional: Appearance: Normal appearance. HENT: Nose: Nose normal. Eyes: Conjunctiva/sclera: Conjunctivae normal. Pupils: Pupils are equal, round, and reactive to light. Cardiovascular: Rate and Rhythm: Normal rate and regular rhythm. Heart sounds: No murmur heard. Pulmonary: Effort: Pulmonary effort is normal. Breath sounds: Normal breath sounds. Abdominal: General: Abdomen is flat. Palpations: Abdomen is soft. Tenderness: There is no abdominal tenderness. There is no right CVA tenderness or left CVA tenderness. Musculoskeletal: General: Normal range of motion. Cervical back: No tenderness. Skin: Findings: No rash. Neurological: Mental Status: He is alert. Gait: Gait is intact. Comments: Paraplegia Psychiatric: Mood and Affect: Mood normal. Behavior: Behavior normal. Procedures Assessment/Plan Diagnoses and all orders for this visit: UTI symptoms Prescribed cefuroxime and acetaminophen pending urine C&S results. Return to clinic if not improving - POCT Urinalysis - Urine Culture Routine Other orders - cefuroxime (Ceftin) 500 MG tablet; Take 1 tablet (500 mg) by mouth 2 times daily for 7 days. - acetaminophen (Tylenol) 500 MG tablet; Take 2 tablets (1,000 mg) by mouth every 6 (six) hours if needed for moderate pain or fever for up to 25 doses. documented in this encounter Plan of Treatment Upcoming Encounters Date Type Department Care Team (Late st Contact Info) Description 10/29/2025 3:30 PM EST Office Visit [facility] [address] [place] [employer], [place] [phone] Luisana Dhillon, OD [address] [place], [place] [phone] 11/30/2025 1:30 PM EST Telemedicine [facility] [address] [place], [place] [phone] Arlet Quijano RN documented as of this encounter Procedures Procedure Name Priority Date/Time Associated Diagnosis Comments CULTURE, URINE, ROUTINE Routine 10/03/2025 11:13 AM EST UTI symptoms POCT URINALYSIS DIPSTICK Routine 10/03/2025 10:19 AM EST UTI symptoms documented in this encounter Results * Urine Culture Routine (10/03/2025 11:13 AM EST) Urine Urine specimen from urinary conduit / Unknown 10/03/2025 11:13 AM EST 10/03/2025 4:31 PM EST Comment:Urine Cath [facility] - 10/06/2025 7:18 AM EST Serratia marcescens Quant > 100,000 cfu/mL Klebsiella pneumoniae Quant 10,000 to 50,000 cfu/mL Serratia marcescens: Cefazolin >=32(R) Serratia marcescens: Cefepime <=0.12(S) Serratia marcescens: Ceftriaxone <=0.25(S) Serratia marcescens: Ciprofloxacin <=0.06(S) Serratia marcescens: Gentamicin <=1(S) Serratia marcescens: Trimethoprim/Sulfamethoxazole <=20(S) Klebsiella pneumoniae: Ampicillin >=32(R) Klebsiella pneumoniae: Cefazolin 2(S) Klebsiella pneumoniae: Cefepime <=0.12(S) Klebsiella pneumoniae: Ceftriaxone <=0.25(S) Klebsiella pneumoniae: Ciprofloxacin <=0.06(S) Klebsiella pneumoniae: Gentamicin <=1(S) Klebsiella pneumoniae: Nitrofurantoin 64(I) Klebsiella pneumoniae: Trimethoprim/Sulfamethoxazole >=320(R) Specimen Source: Urine Catheterized us Manish Argueta MD LAB MICROBIOLOGY - GENERAL ORDER LORRI Final Result Performing Organization Address City/State/[facility] Co de Phone Number [facility] [address] [place] [phone] * (ABNORMAL) POCT Urinalysis (10/03/2025 10:19 AM EST) Color, UA Yellow Clarity, UA Clear Glucose, UA Negative Bilirubin, UA Negative Ketones, UA Negative Spec Grav, UA 1.025 Blood, UA Positive(A) Negative, None Detected Comment:intact pH, UA 6.0 Protein, UA Negative Urobilinogen, UA 0.2 Leukocytes, UA Trace Negative, Rare, Trace, 1+ (17), 2+ (35), 3+ (70), Trace (15) Comment:small Nitrite, UA Negative Negative, None Detected QC Media Lot # [id number] Lot# Expiration Date Urine (Urine, Random) 10/03/2025 10:19 AM EST us Manish Argueta MD POINT OF CARE TEST ENTER/EDIT OR DERABLES Final Result documented in this encounter Visit Diagnoses Diagnosis UTI symptoms documented in this encounter Additional Health Concerns Assessment Noted Time PHQ-9 Depression Total Score: 3 10/07/20 23 9:51 AM EST documented as of this encounter Care Teams Hair Boiler Relationship Specialty Start Date End Date Kaylah Foley MD [address] [place] [phone] PCP - General Family Medicine 06/02/17 documented as of this encounter
--- OUTSIDE RECORDS SUMMARY | 2025-10-08 16:45 | XMS_ITS | Encounter Summary ---
Author Organization [employer] Address [address] [facility] [address] [place] [address] Care Team Providers Care Senior Site Manager Name Role Phone Kaylah Foley MD Primary Care Provider + Reason for Visit * Reason Comments Med Refill Encounter Details Date Type Department Care Team ([facility] st Contact Info) Description 05/16/2024 Refill [facility] MEDICINE [address] [place], [place] [phone] Erum Scott MD [address] [place], [place] [phone] Flaccid paraplegia (CMS/HCC) Social History Tobacco Use [...] 3:30 PM EST Office Visit [facility] OPTOMETRY [address] [place], [place] [phone] Luisana Dhillon, OD [address] [place] [address] 11/30/2025 1:30 PM EST Telemedicine [facility] MEDICINE [address] [place], [place] [phone] Arlet Quijano RN documented as of this encounter Visit Diagnoses Diagnosis Flaccid paraplegia (CMS/HCC) (HCC) Paraplegia documented in this encounter Additional Health Concerns Assessment Noted Time PHQ-9 Depression Total Score: 3 10/07/20 23 9:51 AM EST documented as of this encounter Care Teams Senior Site Manager Relationship Specialty Start Date End Date Kaylah Foley MD [address] [place] [address] PCP - General Family Medicine 06/02/17 documented as of this encounter
--- OUTSIDE RECORDS SUMMARY | 2025-10-08 16:46 | XMS_ITS | Encounter Summary ---
Author Organization [employer] Address [address] [facility] [address] [place] [address] Care Team Providers Care Customer Service Advisor Name Role Phone Kaylah Foley MD Primary Care Provider + Reason for Visit * Reason Comments Med Refill Encounter Details Date Type Department Care Team ([facility] st Contact Info) Description 04/17/2025 Refill [facility] MED & PEDS [address] [place], [place] [phone] Kaylah Foley MD [address] [place], [place] [phone] Mixed anxiety and depressive disorder Social History [...] Visit [facility] OPTOMETRY [address] [place] [address] Luisana Dhillon, OD [address] [place] [address] 11/30/2025 1:30 PM EST Telemedicine [facility] MEDICINE [address] [place] [address] Arlet Quijano RN documented as of this encounter Visit Diagnoses Diagnosis Mixed anxiety and depressive disorder Dysthymic disorder documented in this encounter Additional Health Concerns Assessment Noted Time PHQ-9 Depression Total Score: 3 10/07/20 23 9:51 AM EST documented as of this encounter Care Teams Customer Service Advisor Relationship Specialty Start Date End Date Kaylah Foley MD [address] [place] [address] PCP - General Family Medicine 06/02/17 documented as of this encounter
--- OUTSIDE RECORDS SUMMARY | 2025-10-08 16:46 | XMS_ITS | Encounter Summary ---
Author Organization [employer] Address [address] [facility] [address] [place] [address] Care Team Providers Care Hand Sizer Name Role Phone Kaylah Foley MD Primary [...] Description 10/29/2025 3:30 PM EST Office Visit [facility] OPTOMETRY [address] [place], [place] [phone] Luisana Dhillon, OD [address] [place] [address] 11/30/2025 1:30 PM EST Telemedicine [facility] MEDICINE [address] [place] [address] Arlet Quijano, ROBERT documented as of this encounter Visit Diagnoses Not on filedocumented in this encounter Additional Health Concerns Assessment Noted Time PHQ-9 Depression Total Score: 3 10/07/20 23 9:51 AM EST documented as of this encounter Care Teams Hand Sizer Relationship Specialty Start Date End Date Kaylah Foley MD [address] [place] [address] PCP - General Family Medicine 06/02/17 documented as of this encounter
--- OUTSIDE RECORDS SUMMARY | 2025-10-08 16:46 | XMS_ITS | Encounter Summary ---
Author Organization [employer] Address [address] [facility] [address] [place] [address] Care Team Providers Care Gin Inspector Name Role Phone Kaylah Foley MD Primary Care Provider + Reason for Visit * Reason Comments Med Refill Encounter Details Date Type Department Care Team ([facility] st Contact Info) Description 08/08/2025 Refill [facility] MEDICINE [address] [place], [place] [phone] Kaylah Foley MD [address] [place], [place] [phone] Mixed anxiety and depressive disorder Social History [...] Visit [facility] OPTOMETRY [address] [place] [address] Luisana Dhillon, OD [address] [place] [address] 11/30/2025 1:30 PM EST Telemedicine [facility] MEDICINE [address] [place] [address] Arlet Quijano RN documented as of this encounter Visit Diagnoses Diagnosis Mixed anxiety and depressive disorder Dysthymic disorder documented in this encounter Additional Health Concerns Assessment Noted Time PHQ-9 Depression Total Score: 3 10/07/20 23 9:51 AM EST documented as of this encounter Care Teams Gin Inspector Relationship Specialty Start Date End Date Kaylah Foley MD [address] [place] [address] PCP - General Family Medicine 06/02/17 documented as of this encounter
--- OUTSIDE RECORDS SUMMARY | 2025-10-08 16:46 | XMS_ITS | Encounter Summary ---
Author Organization [employer] Address [address] [facility] [address] [place] [address] Care Team Providers Care Blast Setter Name Role Phone Kaylah Foley MD Primary Care Provider + Encounter Details Date Type Department Care Team (Late st Contact Info) Description 10/06/2025 Results Follow-Up [facility] [address] [place], [place] [phone] Manish Argueta MD [address] [place], [place] [phone] POCT Urinalysis, Urine Culture Routine Social History Tobacco Use Types Packs/Day [...] is your housing situation today? I have rokc sims 10/24/[address] you [...] encounter Miscellaneous Notes * Telephone Encounter - Danya Hooker RN - 10/08/2025 12:13 PM EST TC returned to pt and the message below was discussed pt will go to lab today for urine sample ----- Message from Manish Argueta MD sent at 10/06/2025 4:09 PM EST ----- Please notify Erasmo that his urine C&S grew 2 bacteria. If he is still symptomatic, could he goto [facility] lab to self cath for a new urine specimen for C&S? Cyndee. Rishi ----- Message ----- From: Yanira Osman [place] Sent: 10/03/2025 10:21 AM EST To: Manish Argueta MD * Telephone Encounter - Di Powell - 10/08/2025 11:24 AM EST Tc from pt returning call regarding message prior . Faroese speaking * Telephone Encounter - Danya Hooker RN - 10/08/2025 11:06 AM EST TC placed to [phone] [place] [employer] [id number] and a message was left for a call back, also called pt home number on file and a message was also left on voice mail. ----- Message from Manish Argueta MD sent at 10/06/2025 4:09 PM EST ----- Please notify Erasmo that his urine C&S grew 2 bacteria. If he is still symptomatic, could he goto [facility] lab to self cath for a new urine specimen for C&S? Thanks. Blackwell ----- Message ----- From: Yanira Osman MA Sent: 10/03/2025 10:21 AM EST To: Manish Argueta MD documented in this encounter Plan of Treatment Upcoming Encounters Date Type Department Care Team (Late st Contact Info) Description 10/29/2025 3:30 PM EST Office Visit [facility] OPTOMETRY [address] [place] [address] Tarka, Luisana, OD [address] [place] [address] 11/30/2025 1:[address] [facility] MEDICINE [address] [place] [address] Arlet Quijano, ROBERT Scheduled Orders Name Type Priority Associated Diagnoses Orde r Schedule Culture, Urine, Routine Microbiology Routine UTI symptoms Expected: 10/06/2025 (Approximate), Expires: 10/06/2026 documented as of this encounter Visit Diagnoses Diagnosis UTI symptoms- Primary documented in this encounter Additional Health Concerns Assessment Noted Time PHQ-9 Depression Total Score: 3 10/07/20 23 9:51 AM EST documented as of this encounter Care Teams Blast Setter Relationship Specialty Start Date End Date Kaylah Foley MD [address] [place] [address] PCP - General Family Medicine 06/02/17 documented as of this encounter
--- OUTSIDE RECORDS SUMMARY | 2025-10-08 16:46 | XMS_ITS | Encounter Summary ---
Author Organization [employer] Address [address] [facility] [address] [place] [address] Care Team Providers Care Trouble Operator Name Role Phone Kaylah Foley MD Primary Care Provider + Reason for Visit * Reason Comments Med Refill Encounter Details Date Type Department Care Team ([facility] st Contact Info) Description 10/05/2025 Refill [facility] MEDICINE [address] [place], [place] [phone] Kaylah Foley MD [address] [place], [place] [phone] Social History Tobacco Use Types Packs/Day Years [...] Visit [facility] OPTOMETRY [address] [place] [address] Luisana Dhillon, OD [address] [place] [address] 11/30/2025 1:30 PM EST Telemedicine [facility] MEDICINE [address] [place] [address] Arlet Quijano, ROBERT documented as of this encounter Visit Diagnoses Not on filedocumented in this encounter Additional Health Concerns Assessment Noted Time PHQ-9 Depression Total Score: 3 10/07/20 23 9:51 AM EST documented as of this encounter Care Teams Trouble Operator Relationship Specialty Start Date End Date Kaylah Foley MD [address] [place] [address] PCP - General Family Medicine 06/02/17 documented as of this encounter
--- OUTSIDE RECORDS SUMMARY | 2025-10-08 16:46 | XMS_ITS | Encounter Summary ---
Author Organization [employer] Address [address] [facility] [address] [place] [address] Care Team Providers Care Human Resources Supervisor Name Role Phone Kaylah Foley MD Primary Care Provider + Reason for Visit * Reason Onset Date Comments Medication Question 07/05/2024 Encounter Details Date Type Department Care Team ([facility] st Contact Info) Description 07/05/2024 Telephone [facility] MEDICINE [address] [place], [place] [phone] Kaylah Foley MD [address] [place], [place] [phone] Medication Question Social History Tobacco Use Types [...] Description 10/29/2025 3:30 PM EST Office Visit [facility] OPTOMETRY [address] [place] [address] Luisana Dhillon, YESSI [address] [place] [address] 11/30/2025 1:30 PM EST Telemedicine [facility] MEDICINE [address] [place] [address] Arlet Quijano RN documented as of this encounter Visit Diagnoses Not on filedocumented in this encounter Additional Health Concerns Assessment Noted Time PHQ-9 Depression Total Score: 3 10/07/20 23 9:51 AM EST documented as of this encounter Care Teams Human Resources Supervisor Relationship Specialty Start Date End Date Kaylah Foley MD [address] [place] [address] PCP - General Family Medicine 06/02/17 documented as of this encounter
--- OUTSIDE RECORDS SUMMARY | 2025-10-08 16:46 | XMS_ITS | Encounter Summary ---
Author Organization [employer] Address [address] [facility] [address]t [place] [address] Care Team Providers Care Special Education Preschool Teacher Name Role Phone Kaylah Foley MD Primary Care Provider + Encounter Details Date Type Department Care Team ([facility] st Contact Info) Description 08/03/2025 Results Follow-Up [facility] MEDICINE [address] [place], [place] [phone] Pearl Dimas, LEONELA [address] [place], [place] [phone] POCT Urinalysis, Culture, Urine, Routine Social History [...] Description 10/29/2025 3:30 PM EST Office Visit [facility] OPTOMETRY [address] [place] [address] Jacquie Luisana, OD [address] [place] [address] 11/30/2025 1:30 PM EST Telemedicine [facility] MEDICINE [address] [place] [address] Arlet Quijano RN documented as of this encounter Visit Diagnoses Not on filedocumented in this encounter Additional Health Concerns Assessment Noted Time PHQ-9 Depression Total Score: 3 10/07/20 23 9:51 AM EST documented as of this encounter Care Teams Special Education Preschool Teacher Relationship Specialty Start Date End Date Kaylah Foley MD [address] [place] [address] PCP - General Family Medicine 06/02/17 documented as of this encounter
--- OUTSIDE RECORDS SUMMARY | 2025-10-08 16:46 | XMS_ITS | Encounter Summary ---
Author Organization [employer] Address [address] [facility] 7t [place] [address] Care Team Providers Care Alodize Machine Operator Name Role Phone Kaylah Foley MD Primary Care Provider + Reason for Visit * Reason Comments Med Refill Encounter Details Date Type Department Care Team ([facility] st Contact Info) Description 09/29/2023 Refill [facility] [address] [place], [place] [phone] Kaylah Foley MD [address] [place], [place] [phone] Flaccid paraplegia (CMS/HCC) Social History Tobacco Use [...] Office Visit [facility] OPTOMETRY [address] [place], [place] [phone] Luisana Dhillon, OD [address] [place] [address] 11/30/2025 1:30 PM EST Telemedicine [facility] [address] [place] [address] Arlet Quijano RN documented as of this encounter Visit Diagnoses Diagnosis Flaccid paraplegia (CMS/HCC) (HCC) Paraplegia documented in this encounter Additional Health Concerns Assessment Noted Time PHQ-9 Depression Total Score: 1 08/19/20 23 9:39 AM EDT documented as of this encounter Care Teams Alodize Machine Operator Relationship Specialty Start Date End Date Kaylah Folye MD [address] [place] [address] PCP - General Family Medicine 06/02/17 documented as of this encounter
--- OUTSIDE RECORDS SUMMARY | 2025-10-08 16:46 | XMS_ITS | Encounter Summary ---
Author Organization [employer] Address 75 [facility] 7t [place] [address] Care Team Providers Care Mud Grinder Name Role Phone Kaylah Foley MD Primary Care Provider + Reason for Visit * Reason Onset Date Comments Med Refill 09/27/2023 F/U on Percocet usage 09/27/2023 Encounter Details Date Type Department Care Team ([facility] st Contact Info) Description 09/27/[address] [facility] [address] [place], [place] [phone] Kaylah Foley MD [address] [place], [place] [phone] Flaccid paraplegia (CMS/HCC) Social History Tobacco Use [...] and opiate dependence. * Telephone Encounter - Arlte Quijano RN - 09/27/2023 9:28 AM EST Per PCP 08/25/23 I saw patient on 08/19, he's trying to cut down oxycodone to bid, he's doing well but hasn't cut down as much as he thinks, see pill count. Received request for Percocet refill today. TC via P/I#[id number], pt reports he's has about 27-28 pills [...] Office Visit [facility] OPTOMETRY [address] [place] [address] TarkaLuisana, OD [address] [place] [address] 11/30/2025 1:[address] [facility] [address] [place] [address] Arlet Quijano RN documented as of this encounter Visit Diagnoses Diagnosis Flaccid paraplegia (CMS/HCC) (HCC) Paraplegia documented in this encounter Additional Health Concerns Assessment Noted Time PHQ-9 Depression Total Score: 1 08/19/20 23 9:39 AM EDT documented as of this encounter Care Teams Mud Grinder Relationship Specialty Start Date End Date Kaylah Foley MD [address] [place] [address] PCP - General Family Medicine 06/02/17 documented as of this encounter
--- OUTSIDE RECORDS SUMMARY | 2025-10-08 16:46 | XMS_ITS | Encounter Summary ---
Author Organization [employer] Address [address] [place] [address] 7t [place] [address] Care Team Providers Care Stove Polisher Name Role Phone Kaylah Foley MD Primary Care Provider + Reason for Visit * Reason Comments Med Refill Encounter Details Date Type Department Care Team (Late st Contact Info) Description 10/09/2022 Refill [facility] [address] [place] [address] Palma Palacio MD [address] [place] [address] Other specified anxiety disorders Social History Tobacco [...] PM EST Office Visit [facility] OPTOMETRY [address] [place], [place] [phone] Luisana Dhillon, OD [address] [place], [place] [phone] 11/30/2025 1:30 PM EST Telemedicine [facility] [address] [place] [address] Arlet Quijano RN documented as of this encounter Visit Diagnoses Diagnosis Other specified anxiety disorders documented in this encounter Care Teams Stove Polisher Relationship Specialty Start Date End Date Kaylah Foley MD [address] [place] [address] PCP - General Family Medicine 06/02/17 documented as of this encounter
--- OUTSIDE RECORDS SUMMARY | 2025-10-08 16:46 | XMS_ITS | Encounter Summary ---
Author Organization [employer] Address 75 [facility] 7t [place] [address] Care Team Providers Care Technical Photographer Name Role Phone Kaylah Foley MD Primary Care Provider + Reason for Visit * Reason Comments Med Refill Encounter Details Date Type Department Care Team ([facility] st Contact Info) Description 10/03/2025 Refill [facility] CHC MED & PEDS [address] [place], [place] [phone] Kaylah Foley MD [address] [place], [place] [phone] Mixed anxiety and depressive disorder Social History [...] [facility] OPTOMETRY [address] [place] [address] Luisana Dhillon, OD [address] [place] [address] 11/30/2025 1:30 PM EST Telemedicine [facility] MEDICINE [address] [place] [address] Arlet Quijano RN documented as of this encounter Visit Diagnoses Diagnosis Mixed anxiety and depressive disorder Dysthymic disorder documented in this encounter Additional Health Concerns Assessment Noted Time PHQ-9 Depression Total Score: 3 10/07/20 23 9:51 AM EST documented as of this encounter Care Teams Technical Photographer Relationship Specialty Start Date End Date Kaylah Foley MD [address] [place] [address] PCP - General Family Medicine 06/02/17 documented as of this encounter
--- OUTSIDE RECORDS SUMMARY | 2025-10-08 16:46 | XMS_ITS | Encounter Summary ---
Author Organization [employer] Address 75 [facility] 7t [place] [address] Care Team Providers Care Unix Engineer Name Role Phone Kaylah Foley MD Primary Care Provider + Reason for Visit * Reason Comments Med Refill Encounter Details Date Type Department Care Team ([facility] st Contact Info) Description 05/08/2024 Refill [facility] MED & PEDS [address] [place], [place] [phone] Kaylah Foley MD [address] [place], [place] [phone] Anxiety Social History Tobacco Use Types Packs/Day [...] Description 10/29/2025 3:30 PM EST Office Visit [facility] OPTOMETRY [address] [place] [address] Luisana Dhillon, OD [address] [place] [address] 11/30/2025 1:30 PM EST Telemedicine [facility] [address] [place], [place] [phone] Arlet Quijano RN documented as of this encounter Visit Diagnoses Diagnosis Anxiety Anxiety state, unspecified documented in this encounter Additional Health Concerns Assessment Noted Time PHQ-9 Depression Total Score: 3 10/07/20 23 9:51 AM EST documented as of this encounter Care Teams Unix Engineer Relationship Specialty Start Date End Date Kaylah Foley MD [address] [place] [address] PCP - General Family Medicine 06/02/17 documented as of this encounter
--- OUTSIDE RECORDS SUMMARY | 2025-10-08 16:46 | XMS_ITS | Encounter Summary ---
Author Organization [employer] Address 75 [facility] 7t [place] [address] Care Team Providers Care Manager Qa Name Role Phone Kaylah Foley MD Primary Care Provider + Encounter Details Date Type Department Care Team ([facility] st Contact Info) Description 08/18/2024 Orders Only [facility] [address] [place], [place] [phone] Kaylah Foley MD [address] [place], [place] [phone] Mixed anxiety and depressive disorder (Primary Dx) [...] [facility] [address] [place] [address] Luisana Dhillon, OD [address] [place] [address] 11/30/2025 1:30 PM EST Telemedicine [facility] MED[facility]INE [address] [place] [address] Arlet Quijano RN documented as of this encounter Visit Diagnoses Diagnosis Mixed anxiety and depressive disorder- Primary Dysthymic disorder documented in this encounter Additional Health Concerns Assessment Noted Time PHQ-9 Depression Total Score: 3 10/07/20 23 9:51 AM EST documented as of this encounter Care Teams Manager Qa Relationship Specialty Start Date End Date Kaylah Foley MD [address] [place] [address] PCP - General Family Medicine 06/02/17 documented as of this encounter
--- OUTSIDE RECORDS SUMMARY | 2025-10-08 16:46 | XMS_ITS | Encounter Summary ---
Author Organization [employer] Address [address] [facility] 7t [place] [address] Care Team Providers Care Sterilization Tech Name Role Phone Kaylah Foley MD Primary Care Provider + Reason for Visit * Reason Onset Date Comments Med Refill 03/12/2023 Encounter Details Date Type Department Care Team ([facility] st Contact Info) Description 03/12/2023 Telephone [facility] MEDICINE [address] [place], [place] [phone] Kaylah Foley MD [address] [place], [place] [phone] Med Refill Social History Tobacco Use Types [...] (Percocet) 5-325 MG tablet Please sent to [facility] - [place], [place] - [address] [place] [address] documented in this encounter Plan of Treatment Upcoming Encounters Date Type Department Care Team (Late st Contact Info) Description 10/29/2025 3:30 PM EST Office Visit [facility] OPTOMETRY [address] [place], [place] [phone] Luisana Dhillon, YESSI [address] [place] [address] 11/30/2025 1:30 PM EST Telemedicine [facility] MEDICINE [address] [place] [address] Arlet Quijano, ROBERT documented as of this encounter Visit Diagnoses Not on filedocumented in this encounter Care Teams Sterilization Tech Relationship Specialty Start Date End Date Kaylah Foley MD [address] [place] [address] PCP - General Family Medicine 06/02/17 documented as of this encounter
--- OUTSIDE RECORDS SUMMARY | 2025-10-08 16:46 | XMS_ITS | Encounter Summary ---
Author Organization [employer] Address [address] [facility] 7t [place] [address] Care Team Providers Care Library Paraprofessional Name Role Phone Kaylah Foley MD Primary Care Provider + Reason for Visit * Reason Comments Med Refill Encounter Details Date Type Department Care Team ([facility] st Contact Info) Description 12/02/2023 Refill [facility] [address] [place], [place] [phone] Kaylah Foley MD [address] [place], [place] [phone] Anxiety Social History Tobacco Use Types Packs/Day [...] Description 10/29/2025 3:30 PM EST Office Visit [facility] OPTOMETRY [address] [place] [address] Luisana Dhillon, OD [address] [place] [address] 11/30/2025 1:30 PM EST Telemedicine [facility] MED[facility] [address] [place], [place] [phone] Arlet Quijano RN documented as of this encounter Visit Diagnoses Diagnosis Anxiety Anxiety state, unspecified documented in this encounter Additional Health Concerns Assessment Noted Time PHQ-9 Depression Total Score: 3 10/07/20 23 9:51 AM EST documented as of this encounter Care Teams Library Paraprofessional Relationship Specialty Start Date End Date Kaylah Foley MD [address] [place] [address] PCP - General Family Medicine 06/02/17 documented as of this encounter
--- OUTSIDE RECORDS SUMMARY | 2025-10-08 16:46 | XMS_ITS | Encounter Summary ---
Author Organization [employer] Address [address] [facility] 7t [place] [address] Care Team Providers Care Motor Vehicle Technician Name Role Phone Kaylah Foley MD Primary Care Provider + Reason for Visit * Reason Comments Med Refill Encounter Details Date Type Department Care Team ([facility] st Contact Info) Description 04/17/2025 Refill [facility] CH[facility] MED & PEDS [address] [place], [place] [phone] Kaylah Foley MD [address] [place], [place] [phone] Mixed anxiety and depressive disorder Social History [...] EST Office Visit [facility] OPTOMETRY [address] [place] [address] Luisana Dhillon, OD [address] [place] [address] 11/30/2025 1:30 PM EST Telemedicine [facility] MEDICINE [address] [place] [address] Arlet Quijano RN documented as of this encounter Visit Diagnoses Diagnosis Mixed anxiety and depressive disorder Dysthymic disorder documented in this encounter Additional Health Concerns Assessment Noted Time PHQ-9 Depression Total Score: 3 10/07/20 23 9:51 AM EST documented as of this encounter Care Teams Motor Vehicle Technician Relationship Specialty Start Date End Date Kaylah Foley MD [address] [place] [address] PCP - General Family Medicine 06/02/17 documented as of this encounter
--- OUTSIDE RECORDS SUMMARY | 2025-10-08 16:46 | XMS_ITS | Clinical Summary ---
Author Organization [employer] Address [address] [facility] 7t [place] [address] Care Team Providers Care Raisin Separator Operator Name Role Phone Kaylah Foley MD [...] AT BEDTIME NEEDED for SLEEP 28 tablet 5 4:15 PM EST 025 Active Eliquis 2.5 MG tablet TAKE 1 TABLET BY MOUTH TWICE DAILY. STOP warfarin 60 tablet 11 5 4:04 PM EST Active clonazePAM (KlonoPIN) 0.5 MG tabletIndications :Mixed anxiety and depressive disorder TAKE 1 TABLET BY MOUTH TWICE DAILY IN THE MORNING AND AT BEDTIME NEEDED FOR ANXIETY 56 tablet 5 4:22 PM EST Active cefuroxime (Ceftin) 500 MG tablet Take 1 tablet (500 mg) by mouth 2 times daily for 7 days. 14 tablet 5 11:32 AM EST 2024 Active acetaminophen (Tylenol) 500 MG tablet Take 2 tablets (1,000 mg) by mouth every 6 (six) hours if needed for moderate pain or fever for up to 25 doses. 50 tablet 5 4:22 PM EST Active Diclofenac Sodium 1 % gel APPLY 1 INCH (1 GRAM) TOPICALLY TO AFFECTED AREA(S) TWICE DAILY IN THE MORNING AND AT BEDTIME NEEDED FOR PAIN 100 g 3 5 1:55 PM EST Active Diclofenac Sodium 1 % gel Apply 1 inch topically if needed in the morning and at bedtime (ppain). 60 g 3 024 2024 Discontinued apixaban (Eliquis) 2.5 MG tablet Take 1 tablet (2.5 mg) by mouth 2 times daily. DC warfarin 60 tablet 11 024 2024 Discontinued nitrofurantoin, macrocrystal-mono hydrate, (Macrobid) 100 MG capsuleIndication s:Chronic UTI Take 1 capsule (100 mg) by mouth 2 times daily for 7 days. 14 capsule 5 11:29 AM EST 025 2024 clonazePAM (KlonoPIN) 0.5 MG tabletIndications :Mixed anxiety and depressive disorder Take 1 tablet (0.5 mg) by mouth if needed in the morning and at bedtime for anxiety. Do not start before September 06, 2025. 56 tablet 5 3:22 PM EST 025 2024 Discontinued ciprofloxacin (Cipro) 500 MG [...] to control anxiety and depression in the terminal superintendent, pharmaco education re effects and side effects [...] out for safety. Postprocedural male urethral stricture 05/15/202 3 Recurrent major depression in partial remission 03/01/2023 Assessment & Plan (10/07/2023 1:18 PM EST): Evaluated by and decline further management Cont low dose Klonopin daily and FU PRN Retention of urine 06/15/2018 Assessment & Plan (04/03/2025 3:07 PM EDT): Sec to paraplegia, he self cathes 3-4x/d and fu with , he will consider suprapubic catheter. 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 He is wheelchair-bound and self caths several times per day He needs assistance on all ADLs although he tries to be independent. Advised to continue exercise, continue with [employer] therapies We discussed about skin moisturizing, change position to prevent pressure sores. 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 Due to wheelchair bound condition, he cont be at risk of DVT. Will consult with hematology to see if there is an alternative, newer anticoagulant that has not yet been approved for fdc DVT prophylaxis Vitamin D deficiency 04/04/2018 Restless [...] threw them in the green disposal bin, [employer] Cotton Picking Machine Operator, [facility] witnessed [...] off anticoagulant. Continue coumadin per coumadin clinic detention prescription opiate use 08/19/2023 04/03/2025 Assessment & [...] pain and will FU next month for HOROLOGIST nurse. If not needed will continue oxycontin [...] cont slow taper and will FU with HOROLOGIST nurse We have done [employer] education re [...] -warm compresses Urinary tract infectious disease 06/15/2018 08/18/2004/03/2025 Assessment & Plan (06/27/2024 12:38 PM EDT): [...] Encounters Date Type Department Care Team Description 10/06/2025 Results Follow-Up [facility] [address] [place] [address] [phone] Manish Argueta MD POCT Urinalysis, Urine Culture Routine 10/05/2025 Refill [facility] [address] [place] [address] Kaylah Foley MD 10/03/2025 10:00 AM EST Office Visit [facility] [address] [address] Manish Argueta MD UTI symptoms 10/03/2025 Travel 10/03/2025 Refill [facility] [address] [place] [address] Kaylah Foley MD Mixed anxiety and depressive disorder 09/25/2025 Refill [facility] [address] [place] [address] Kaylah Foley MD 09/19/2025 Refill [facility] [address] [place] [address] Kaylah Foley MD 09/06/2025 Orders Only [facility] [address] [place] [address] Kasey Tay MD Chronic UTI (Primary Dx) 09/06/2025 Results Follow-Up [facility] [address] [place] [address] Kasey Tay MD Culture, Urine, Routine 09/04/2025 8:40 AM EST [facility] [address] [address] Kasey Tay MD Chronic UTI (Primary Dx) 09/04/2025 Orders Only [facility] [address] [place] [address] Kasey Tay MD 09/04/2025 Telephone [facility] [address] [place] [address] Kaylah Foley MD Other 09/04/2025 Refill [facility] [address] [place] [address] Kaylah Foley MD Mixed anxiety and depressive disorder 09/04/2025 Travel 08/24/2025 1:30 PM EST Telemedicine [facility] [address] [place] [address] Arlet Quijano RN Long-term current use of benzodiazepine 08/24/2025 Telephone [facility] [address] [place] [address] Arlet Quijano RN LOIDA scoring 08/24/2025 Travel 08/08/2025 Refill [facility] [address] [place] [address] Kaylah Foley MD Mixed anxiety and depressive disorder 08/07/2025 Telephone [facility] [address] [place] [address] Pearl Dimas NP Status Check 08/07/2025 Refill [facility] [address] [place], [place] [phone] Kaylah Foley MD Mixed anxiety and depressive disorder 08/06/2025 Refill [facility] [address] [place] [address] Kaylah Foley MD Mixed anxiety and depressive disorder 08/03/2025 Results Follow-Up [address] [address] Pearl Diams NP POCT Urinalysis, Culture, Urine, Routine 08/01/2025 9:00 AM EDT Office Visit [address] [address] Pearl Dimas, LEONELA Dysuria (Primary Dx); Urinary tract infection associated with catheterization of urinary tract, unspecified indwelling urinary catheter type, initial encounter 08/01/2025 Travel 07/09/[address] [address] Palma Palacio MD Mixed anxiety and depressive [...] Description 10/29/2025 3:30 PM EST Office Visit [facility] [address] [place] [address] Luisana Dhillon, OD [address] [place] [address] 11/30/2025 1:30 PM EST Telemedicine [facility] [address] [place] [address] Arlet Quijano, ROBERT Health Maintenance Due Date Last Done Comments [...] Recently Relevant to Health Maintenance Results * Urine Culture Routine (10/03/2025 11:13 AM EST) Only the most recent of3 resultswithin the time period is included. Urine Urine specimen from urinary conduit / Unknown 10/03/2025 11:13 AM EST 10/03/2025 4:31 PM EST Comment:Urine Cath Narrative [facility] - 10/06/2025 7:18 AM EST Serratia [...] MICROBIOLOGY - GENERAL ORDER LORRI Final Result [facility] [address] [place] [phone] [phone] * (ABNORMAL) POCT Urinalysis (10/03/2025 10:19 [...] (09/04/2025 12:00 AM EST) Color Urine Yellow [facility] Appearance Urine Cloudy [facility] PH 6.0 5.0 - 9.0 [facility] Glucose Urine UA Negative Negative mg/dL [facility] Urine Blood Moderate (2+)(A) Negative [facility] Specific [place] - Urine 1.015 1.005 - 1.025 [facility] Urine Protein Trace Neg-Trace mg/dL [facility] Urine Ketones Negative Negative mg/dL [facility] Nitrite Urine Negative Negative [facility] Leukocyte Esterase Urine Moderate (2+)(A) Negative [facility] RBC Urine 3-5(A) 0 - 2 /HPF [facility] Urine WBC 21-50(A) 0 - 5 /HPF [facility] Urine Squamous Epithelial Cell 6-10 0 - 2 /HPF [facility] Urine Bacteria 4+ None Seen [facility] Hyaline Casts, Urine 0-2 0 - 2 /LPF [facility] Urine 09/04/2025 09/04/2025 Narrative [facility] - 09/04/2025 5:17 PM EST Urine, Clean Catch us Kasey Tay MD LAB URINE ORDERABLES Final Result [facility] [address] [place] [phone] [phone] * (ABNORMAL) Hm Colonoscopy (02/28/2025) Colonoscopy Abnormal( A) Normal Comment:TA's x 3 us Kyalah Foley MD HEALTH MAINTENANCE Final Result * (ABNORMAL) Lipid Panel with Reflex to Direct LDL (10/07/2023 10:48 AM EST) Triglycerides 75 <150 mg/dL [facility] Comment:Desirable Triglyceri de: less than 150 mg/dLBorderline High Triglyceride 150-199 mg/dLHigh Triglyceride: 200-499 mg/dLVery High Triglyceride: greater than or equal to 5OO mg/dL Cholesterol 166 <200 mg/dL [facility] Comment:Desirable Cholestero l: less than 200 mg/dLBorderline High Cholesterol: 200-239 mg/dLHigh Cholesterol: greater than 239 mg/dL LDL Cholesterol Calculated 112(H) <100 mg/dL [facility] Comment:Desirable LDL: less than 100 mg/dLNear Optimal/Above Optimal LDL: 110- 129 mg/dLBorderline High LDL: 130-159 mg/dLHigh LDL: 160-189 mg/dLVery High LDL: greater than or equal to 190 mg/dL HDL Cholesterol 39(L) >40 mg/dL [facility] Comment:Desirable HDL: great er than 40 mg/dL Note: This HDL assay may give artificially low results in patients with liver disease. Blood 10/07/2023 10:4 8 AM EST 10/07/2023 11:22 AM EST Kaylah Foley MD LAB BLOOD ORDERABLES Fin al Result Performing Organization Address [facility] de Phone Number [facility] [address] [place] [phone] [phone] * Hepatitis Panel, General (10/07/2023 10:48 AM EST) Hepatitis A IgM Nonreactive Nonreactive [facility] Comment:IgM antibodies to REED V not detected; does not exclude earlyacute or recovered HAV infection. ~Hepatitis B Surface Antibody REACTIVE Nonreactive [facility] Comment:REACTIVE: > 11.99 mI U/mL Hepatitis B Core Antibody Reactive Nonreactive [facility] Comment:Presumptive evidence of anti-HBc. Hepatitis C Antibody Nonreactive Nonreactive [facility] Comment:Antibodies to HCV no t detected; does not exclude early acuteHCV infection. Hepatitis B Surface Ag Negative Negative [facility] Blood 10/07/2023 10:4 8 AM EST 10/07/2023 11:22 AM EST us Kaylah Foley MD LAB BLOOD ORDERABLES Fin al Result Performing Organization Address [facility] Co de Phone Number [facility] [address] [place] [phone] from Last 3 Months or Most Recently Relevant to Health Maintenance Insurance [facility] [employer] (HMO D-SNP) [place] RIOS [id number] Care Teams Raisin Separator Operator Relationship Specialty Start Date End Date Kaylah Foley MD [address] [place] [phone] PCP - General Family Medicine 06/02/17
--- OUTSIDE RECORDS SUMMARY | 2025-10-08 16:46 | XMS_ITS | Encounter Summary ---
Author Organization [employer] Address [address] [facility] 7t [place] [address] Care Team Providers Care Lining Maker Hand Name Role Phone Kaylah Foley MD Primary Care Provider + Reason for Visit * Reason Comments Med Refill Encounter Details Date Type Department Care Team ([facility] st Contact Info) Description 09/28/2023 Refill [facility] [address] [place], [place] [phone] Kaylah Foley MD [address] [place], [place] [phone] Flaccid paraplegia (CMS/HCC) Social History Tobacco Use [...] Description 10/29/2025 3:30 PM EST Office Visit [facility] [address] [place], [place] [phone] Luisana Dhillon, OD [address] [place] [address] 11/30/2025 1:30 PM EST Telemedicine [facility] [address] [place] [address] Arlet Quijano RN documented as of this encounter Visit Diagnoses Diagnosis Flaccid paraplegia (CMS/HCC) (HCC) Paraplegia documented in this encounter Additional Health Concerns Assessment Noted Time PHQ-9 Depression Total Score: 1 08/19/20 23 9:39 AM EDT documented as of this encounter Care Teams Lining Maker Hand Relationship Specialty Start Date End Date Kaylah Foley MD [address] [place] [address] PCP - General Family Medicine 06/02/17 documented as of this encounter
--- OUTSIDE RECORDS SUMMARY | 2025-10-08 16:46 | XMS_ITS | Encounter Summary ---
Author Organization [employer] Address [address] [facility] 7t [place] [address] Care Team Providers Care Files Supervisor Name Role Phone Kaylah Foley MD Primary Care Provider + Reason for Visit * Reason Onset Date Comments Results 09/06/2025 Encounter Details Date Type Department Care Team ([facility] st Contact Info) Description 09/06/2025 Results Follow-Up [facility] [address] [place], [place] [phone] Kasey Tay MD [address] [place], [place] [phone] Culture, Urine, Routine Social History Tobacco Use [...] AM EST Telephone call to pt via [employer] [phone]. Informed pt that urine testing came back positive for differentbacteria for which another antibiotic is better suited. Pt requests medication to be sent to [facility]. Educated him to return to [facility] if sxs persist after finishing full course [...] Description 10/29/2025 3:30 PM EST Office Visit [facility] [address] [place], [place] [phone] Avilajosé miguelLuisana, OD [address] [place] [address] 11/30/2025 1:30 PM EST Telemedicine [facility] [address] [place] [address] Arlet Quijano, ROBERT documented as of this encounter Visit Diagnoses Not on filedocumented in this encounter Additional Health Concerns Assessment Noted Time PHQ-9 Depression Total Score: 3 10/07/20 23 9:51 AM EST documented as of this encounter Care Teams Files Supervisor Relationship Specialty Start Date End Date Kaylah Foley MD [address] [place] [address] PCP - General Family Medicine 06/02/17 documented as of this encounter
--- OUTSIDE RECORDS SUMMARY | 2025-10-08 16:46 | XMS_ITS | Encounter Summary ---
Author Organization [employer] Address [address] [facility] 7t [place] [address] Care Team Providers Care Cook Helper Name Role Phone Kaylah Foley MD Primary Care Provider + Reason for Visit * Reason Comments Med Refill Encounter Details Date Type Department Care Team ([facility] st Contact Info) Description 09/25/2025 Refill [facility] [address] [place], [place] [phone] Kaylah Foley MD [address] [place], [place] [phone] Social History Tobacco Use Types Packs/Day Years [...] Visit [facility] [address] [place] [address] Luisana Dhillon, OD [address] [place] [address] 11/30/2025 1:30 PM EST Telemedicine [facility] [address] [place] [address] Arlet Quijano, ROBERT documented as of this encounter Visit Diagnoses Not on filedocumented in this encounter Additional Health Concerns Assessment Noted Time PHQ-9 Depression Total Score: 3 10/07/20 23 9:51 AM EST documented as of this encounter Care Teams Cook Helper Relationship Specialty Start Date End Date Kaylah Foley MD [address] [place] [address] PCP - General Family Medicine 06/02/17 documented as of this encounter
--- OUTSIDE RECORDS SUMMARY | 2025-10-08 16:46 | XMS_ITS | Data Portability ---
Author Organization [facility] Address [address] [place] [address] Care Team Providers Care Blood Bank Supervisor Name Role Phone HIM YOEL OTHER Assessment Encounter Date Assessment Date Assessment LastModified by Organization Details LastModified Time 07/03/2024 07/03/2024 As noted, we were called to see this patient regarding concerns of penile pain. Evaluation in the field was performed by my newspaper library manager colleague, as noted above, I provided real-time direction and supervision for this visit. The evaluation revealed same. Impression: Complex 63yo/m with hx of paraplegia and neurogenic bladder who self catheterizes who called for evaluation for continued penile pain. Patient is 63 and interviewed with sr. strategic sourcing manager, and medic in home reports patient [...] symptoms, particularly worsening or change in symptoms. [email or web address] Not available 07/03/2024 18:36:24 Plan of Treatment Reminders Order Date Submit Date Provider Last Modified By Organization Details Last Modified Time Details Appointments None recorde d. Lab culture , urine 024 07/03/20 24 [place] [facility] (Centralized Electronic Ordering - All Locations), Patient Can Go To The Location Of Their Choice, [id number] 10:06:52 Referral None recorde d. Procedures None [...] culture,comp rehensive Final report Not Available [facility] ([facility]) [address] [facility], [place], [address], 07/06/2024 12:06:12 07/03/20 24 07/06/2024 URINE CULTU RE,CO MPREH ENSIV E result 1 COMMEN T No growt h in 36 - 48 hours . Not Available [facility] ([facility]) [address], [place], [address], 07/06/2024 12:06:12 Result Notes None recorded. Medical [...] Not Available No t Available Artificial Tears ([id number]-jpysatx ll-glycerin) 1 %-0.2 %-0.2 % eye drops INSTILL 1 DROP INTO THE AFFECTED EYE(S) FOUR TIMES DAILY active Not Available Not Available No t Available Vitals Date Recorded Heart rate Body weight Oxygen saturation Body temperature Respiratory rate Systolic And Diastolic Provider Name and Address Organization Details Last Updated DateTime 4 76 /min 59453.9 6 g 95 % 97.6 [degF] 18 /min 76/48 mm[Hg] Not Available [facility] - production 4 16:34:42 Date Recorded Body temperature Respiratory rate Heart rate Oxygen saturation Systolic And Diastolic Provider Name and Address Organization Details Last Updated DateTime 4 98.9 [degF] 18 /min 70 /min 97 % 148/84 mm[Hg] Not Available [employer] - production 4 19:32:45 Date Recorded Heart rate Body temperature Oxygen saturation Respiratory rate Systolic And Diastolic Provider Name and Address Organization Details Last Updated DateTime 4 70 /min 97.5 [degF] 96 % 16 /min 119/72 mm[Hg] Not Available [facility] - [employer] 4 18:17:22 Social History None recorded. Functional Status None recorded. Mental Status None recorded. Family History Nothing Reported. Medical History No medical history recorded. Past Encounters Encounter ID Performer Location Encounter Start Date Encounter Closed Date Diagnosis/Indication Diagnosis SNOMED-CT Code Diagnosis ICD10 Code Diagnosis IMO Codes Diagnosis Note [id number] YAMINI ELMUS MD [facility] [address] [place] [address] 12/17/2023 16:34:41 12/17/2023 19:30:05 Low blood pressure 11275869 I95.9 Evaluation in the field was performed by my newspaper library manager colleague, as noted above, I provided real-time [...] BP was checked 3 times by the newspaper library manager and the highest value of BP 76/48. Pt afebrile but with diffuse abdominal pain, guarding.G vasu duranio n, severe abdominal pain and the fact that pt lives by himself, he is a high risk of developing sepsis. Impression :Hypotensi on/ abdominal pain/ possible UTI Plan:Pt to be transporte d to [facility]. Expect called. Primary care, consider__ _ Dispositio n: [facility] [place] [id number] Jovan Hawk MD [facility] - [facility] [address] [place] [phone] 01/07/2024 19:32:43 01/08/2024 00:36:17 Chronic abdominal pain 291598368 R10.9 This 63-year-ol d male has had intermitte nt abdominal pain for over three weeks. He was recently evaluated in the ER with a negative workup. He continues to have pain not responding to Tylenol. I ordered Toradol 15 mg IM and suggested he alternate ibuprofen and Tylenol. He will follow-up with his PCP. The patient agreed with this plan. [id number] Mathew Nguyen MD Main - [facility] [address] [place] [phone] 07/03/2024 18:17:19 07/03/2024 20:33:59 Pain in penis 699788286 N48.89 Health Concerns Section Related Observation LastModified by Organization Detai ls LastModified Time None Recorded Concern Status LastModified by Organization Details LastModified Time None Recorded Advance Directives Directive None Recorded Payers Insurance Date Sequence Insurance Name Policy Number Policy Joseph Covered Member ID Joseph Member ID Guarantor Name 07/03/[address] [facility] - DOS ON OR AFTER 2023 - DUAL ELIGIBLE - LONG TERM OPTIONS AND ONE CARE (MEDICARE REPLACEMENT/ADV ANTAGE - HMO) Erasmo Charles [id number] Erasmo Charles Notes Date Note Type Note Provider Name and Address Organization Details Recorded Time 12/17/2023 text/html [facility] Nurse Triage Notes (Freddy Trejo): Reason For Request: Pt reporting 7 out of 8 centralized abdominal pain 11/14/23 mbr went to ED for similar pain (not as strong pain as being reported today)>was given antibiotic which did not help as much. 12/14/23 [facility] and received antibiotic shot and was sent home with a medication that was 3x a day for pain and made him urinate redish color. 12/15/23 mbr worsened and went to ED> Chief Complaints: Pain Allergies: No Known Comments: Pizza Driver verified the member's name//address and phone number. [...] .................. .................. .................. .................. .................. .................. ............... White Shoe Ragger Note From Daniel Herrera: Pt co lower clenching tingling abdominal pain , painful upon palpation, denies urinary pain fever sob confusion cp. baseline vitals assessed. Very hypotensive. Abdomen had pain upon palpitation. Pt wincing in pain. [facility] contacted and advised ER. Pt agreed. 911 called pt transported to [facility]. .................. .................. .................. .................. .................. .................. .................. ............... Disposition: Ravi LEMUS MD [address] [facility], [place], [address], [facility] 12/17/2023 18:30:41 01/07/2024 text/html ROS as noted in the HPI HPI: HX: Paraplegia following meningitis. Recurrent UTI with urinary retention. Anticoag on coumadin. Seen at [facility] 01/06/24 with negative work up for pain in lower abdomen. Patient reorts nausea and pain worse after eating currently 02/24. No vomiting and BM today. Team appt scheduled for Wednesday. .................. .................. .................. .................. .................. .................. .................. ............... [facility] Nurse Triage Notes (Freddy Trejo): Comments: Reviewed HPI Jovan Hawk MD [address], [place], [address], [employer] 01/07/2024 19:38:39 07/03/2024 text/html ROS as noted in the HPI HPI: MS called and member not on the line, she states member was in ER, he is home and can't sleep and has pain and wants someone to come see him. Pizza Driver obtained director data ID# [id number]. Erasmo states he went to ER because [...] .................. .................. .................. .................. .................. .................. ............... [employer] Ragger Note From Manish Thomas: Pt reports one [...] an in person eval. Red flags reviewed. [facility] Lab Orders: culture, urine: Performed .................. .................. .................. .................. .................. .................. .................. ............... Disposition: Fulfilled Mathew Nguyen MD [address] [facility], [place], [address], [employer] [facility] 07/03/2024 18:45:33
--- OUTSIDE RECORDS SUMMARY | 2025-10-08 16:46 | XMS_ITS | Encounter Summary ---
Author Organization [employer] Address [address] [place] [address] [address] [place] [address] Care Team Providers Care Laborer Tanbark Name Role Phone Kaylah Foley MD Primary Care Provider + Reason for Visit * Reason Comments Med Refill Encounter Details Date Type Department Care Team (Late st Contact Info) Description 02/04/2023 Refill [facility] [address] [place] [address] Kaylah Foley MD [address] [place] [address] Anxiety Social History Tobacco Use Types Packs/Day [...] Description 10/29/2025 3:30 PM EST Office Visit [facility] [address] [place], [place] [phone] Luisana Dhillon, YESSI [address] [place] [address] 11/30/2025 1:30 PM EST Telemedicine [facility] [address] [place] [address] Arlet Quijano RN documented as of this encounter Visit Diagnoses Diagnosis Anxiety Anxiety state, unspecified documented in this encounter Care Teams Laborer Tanbark Relationship Specialty Start Date End Date Kaylah Foley MD [address] [place] [phone] PCP - General Family Medicine 06/02/17 documented as of this encounter
--- OUTSIDE RECORDS SUMMARY | 2025-10-08 16:46 | XMS_ITS | Encounter Summary ---
Author Organization [employer] Address [address] [facility] [address] [place] [address] Care Team Providers Care Molding Room Supervisor Name Role Phone Kaylah Foley MD Primary Care Provider + Encounter Details Date Type Department Care Team (Late st Contact Info) Description 09/13/2023 Abstract [facility] [address] [place], [place] [phone] Brenda Thompson Social History Tobacco Use Types [...] Office Visit [facility] [address] [place] [address] Luisana Dhillon, OD [address] [place] [address] 11/30/2025 1:30 PM EST Telemedicine [facility] [address] [place] [address] Arlet Quijano RN documented as of this encounter Visit Diagnoses Not on filedocumented in this encounter Additional Health Concerns Assessment Noted Time PHQ-9 Depression Total Score: 1 08/19/20 23 9:39 AM EDT documented as of this encounter Care Teams Molding Room Supervisor Relationship Specialty Start Date End Date Kaylah Foley MD [address] [place] [address] PCP - General Family Medicine 06/02/17 documented as of this encounter
== END 2025-10-08 13:25 | disposition home or self-care (01) ==
LOC: HO.HHCL 13:24
PROVIDERS: PCP Internal Medicine; Visit Provider Emergency Medicine
DX: R39.9 Unspecified symptoms and signs involving the genitourinary system (principal)
CPT/HCPCS: 87086